=== PATIENT | female | born 1995 | race Caucasian/White ===

== ENCOUNTER 2016-10-16 13:40 | Outpatient (CLI) | payer BC ==
[~2016-10-16] VITALS: Ht 165.1 cm; Wt 125.0 kg
[~2016-10-16 13:40] MED LIST: IBUP-1050 PO; NXM/40 PO; PRENTAB26 PO
[2016-10-16 15:10] LABS: BASO % 0.4 %; BASO ABS # 0.04 K/uL (0-0.2); COMPLETE YES; EOS % 0.2 %; HEMATOCRIT 38.9 % (37-47); IG% 0.2 %; LYMPH % 14.4 %; LYMPH ABS # 1.48 K/uL (1.2-3.4); MEAN CELL VOLUME 84.6 fL (80-100); MEAN CORPUSCULAR HEMOGLOBIN 28.9 pg (25-34); MEAN CORPUSCULAR HGB CONC 34.2 g/dl (32-36); MEAN PLATELET VOLUME 10.1 fL (7.4-10.4); MONO % 5.6 %; NEUT % 79.2 %; PLATELET COUNT 290 K/uL (130-400)
[2016-10-16 15:19] VITALS: Ht 165.1 cm; Wt 125.0 kg
[2016-10-16 15:29] LABS: POTASSIUM 3.9 mmol/L (3.5-5.1)
[2016-10-16 15:37] LABS: URINE APPEARANCE CLEAR (CLEAR); URINE BILIRUBIN NEG (NEG); URINE COLOR YELLOW; URINE EPITHELIAL CELL AUTO 20-30 /lpf (0-5); URINE NITRITE NEG (NEG); URINE PH 6.5 (4.5-7.5); URINE SPECIFIC GRAVITY 1.008 (1.000-1.030); UROBILINOGEN NEG (NEG); ZZUR CULT IF INDIC CLEAN CATCH NO
[2016-10-16 15:38] LABS: MANUAL MICROSCOPIC REQUIRED? NO; REVIEW REQ? NO
--- NOTE | 2016-10-16 15:51 | Discharge Instructions ---
Discharge Instructions Date of Service October 16, 2016. Admission Reason for Admission: 20 Wks Abdominal Pain Discharge Discharge Diagnosis / Problem: abdominal pain at 19 weeks Discharge Goals Goal(s): Continuing OB care Activity Recommendations Activity Limitations: as noted below ACTIVITY RECOMMENDATIONS: See Labor Sheet. SPECIAL CARE INSTRUCTIONS: Call Doctor if: * Regular contractions every 5 minutes or greater than contractions in one hour. * Bleeding * Water breaks or is leaking * Decreased movement * Fever >100.4 degrees F * Pain not relieved by routine measures or pain medication ordered. FOLLOW UP VISIT: Return to Labor and Delivery on for /call for appointment time . Follow-up Visit with: When: . Current Hospital Diet Patient's current hospital diet: Regular OB Diet Discharge Diet Recommended Diet: Regular Diet Pending Studies Studies pending at discharge: no Medical Emergencies . Who to Call and When: Medical Emergencies: If at any time you feel your situation is an emergency, please call 911 immediately. . Non-Emergent Contact Non-Emergency issues call your: Specialist (HOME ASSESSMENT NURSE) . . "Provider Documentation" section prepared by Iain Wagner. . VTE Core Measure Inpt VTE Proph given/why not?: Treatment not indicated
--- NOTE | 2016-10-16 16:00 | Progress Note ---
Progress Note Date of Service October 16, 2016. Progress Note Pt is a 21yo G1@ 19 weeks.seen at [facility] has been unremarkable she presents today with mild generalized lower abdominal pain No nausea or vomiting.no urgency or frequency.no fever.pain is diffuse pt is able to tolerate PO food and meds FHR is documented VE; ;long /Th/closed cbc and UA is reviewed d/c home with inc oral hydration and f/u with OB if no improvement in 24 hrs
== END 2016-10-16 15:58 | disposition home or self-care (01) ==
LOC: C.OPB 13:40 → C.LD 13:40 → C.OPB 15:58
PROVIDERS: ATTEND Obstetrics & Gynecology
DX: O99.89 Other specified diseases and conditions complicating pregnancy, childbirth and the puerperium (principal); R10.30 Lower abdominal pain, unspecified; Z3A.19 19 weeks gestation of pregnancy

== ENCOUNTER 2016-12-13 02:15 | Emergency (ER) | payer BC ==
[~2016-12-13] VITALS: Ht 165.1 cm; Wt 131.1 kg
[2016-12-13 02:19] VITALS: TEMP 37.5; Ht 165.1 cm; Wt 131.1 kg
--- NOTE | 2016-12-13 03:00 | EMERGENCY ROOM VISIT NOTE ---
History First contact with patient: 02:22 Chief Complaint: FLANK PAIN Stated Complaint: LOWER BACK PAIN History of Present Illness The patient is a 21 year old female who presents to the Emergency Room with complaints of right flank pain. The patient states that she is 27 weeks and developed right-sided flank pain yesterday. She states she also has burning with urination. She called her PERSONNEL DIRECTOR and they recommended that she come here. She has a history of kidney stones and states that this pain feels somewhat similar. She rates her discomfort a 7/10. She took Tylenol approximately one hour prior to arrival for her symptoms. She denies any fevers at home. She states that her has been uneventful so far. She still feels the baby kicking and denies any vaginal bleeding or contractions. Review of Systems A complete 10 point review of systems was reviewed with the patient with pertinent positives and negatives as per history of present illness. All else were negative. Past Medical/Surgical History Medical Problems: (1) Body mass index (BMI) of 45.0-49.9 in adult (2) Kidney stone (3) Social History Smoking Status: Never Smoker Marital Status: Housing Status: lives with family Occupation Status: employed Current/Historical Medications Scheduled Cefdinir (Omnicef), 1 CAP PO BID Multivit/Min/Iron/Fol Ac/Pren ( Vitamin), 2 TABS PO DAILY Omeprazole (Prilosec), 20 MG PO DAILY Allergies Coded Allergies: Sulfamethoxazole w/Trimethoprim (Verified Allergy, Intermediate, HIVES, ) Physical Exam Vital Signs Date Time Temp Pulse Resp B/P (MAP) Pulse Ox O2 Delivery O2 Flow Rate FiO2 12/13/16 06:04 97 147/71 96 12/13/16 05:41 100 98 12/13/16 05:36 97 97 12/13/16 05:31 133/83 12/13/16 05:21 90 95 12/13/16 05:06 82 92 12/13/16 05:01 104/73 12/13/16 04:51 94 95 12/13/16 04:36 90 96 12/13/16 04:31 92 120/71 96 12/13/16 04:23 97 97 12/13/16 04:21 97 22 120/82 99 12/13/16 03:45 97 12/13/16 03:38 77 31 98 7/8/17 03:33 124/79 12/13/16 03:31 133/103 12/13/16 03:30 107 96 12/13/16 03:15 101 95 12/13/16 03:12 140/77 12/13/16 02:37 154/109 12/13/16 02:19 37.5 114 20 152/99 98 Room Air Physical Exam VITALS: Vitals are noted on the nurse's note and reviewed by myself. Vital signs stable. GENERAL: This is a 21-year-old female, in no acute distress, nondiaphoretic, well-developed well-nourished. EYES: Pupils equal round and reactive to light and accommodation. MOUTH: Mucous membranes moist. HEART: Regular rate and rhythm without murmurs gallops or rubs. LUNGS: Clear to auscultation bilaterally without wheezes, rales or rhonchi. ABDOMEN: Gravid uterus. No tenderness to palpation. MUSCULOSKELETAL: Right CVA tenderness. NEURO: Patient was alert and oriented to person place and time. Medical Decision & Procedures ER Provider Diagnostic Interpretation: US RENAL: Borderline hydronephrosis bilaterally. Urinary jets were seen bilaterally. Radiologist: Cleveland Cedeño MD Laboratory Results 12/13/16 03:10 Red Blood Count 4.05, Mean Corpuscular Volume 84.7, Mean Corpuscular Hemoglobin 28.1, Mean Corpuscular Hemoglobin Concent 33.2, Mean Platelet Volume 10.0, Neutrophils (%) (Auto) 73.6, Lymphocytes (%) (Auto) 16.8, Monocytes (%) (Auto) 8.5, Eosinophils (%) (Auto) 0.4, Basophils (%) (Auto) 0.1, Neutrophils # (Auto) 10.19, Lymphocytes # (Auto) 2.32, Monocytes # (Auto) 1.17, Eosinophils # (Auto) 0.06, Basophils # (Auto) 0.02 12/13/16 03:10 Test 12/13/16 02:30 12/13/16 03:10 Urine Color DK YELLOW Urine Appearance CLOUDY (CLEAR) Urine pH 6.0 (4.5-7.5) Urine Specific [place] 1.033 (1.000-1.030) Urine Protein 1+ (NEG) Urine Glucose (UA) NEG (NEG) Urine Ketones TRACE (NEG) Urine Occult Blood NEG (NEG) Urine Nitrite NEG (NEG) Urine Bilirubin NEG (NEG) Urine Urobilinogen NEG (NEG) Urine Leukocyte Esterase LARGE (NEG) Urine WBC (Auto) >30 /hpf (0-5) Urine RBC (Auto) 0-4 /hpf (0-4) Urine Hyaline Casts (Auto) 0 /lpf (0-5) Urine Epithelial Cells (Auto) >30 /lpf (0-5) Urine Bacteria (Auto) 2+ (NEG) Urine Crystals See comments (NONE PRSENT) Urine Pathogenic Casts /lpf (0) Urine Mucus PRESENT (NONE PRSENT) Urine Yeast (Auto) BUDDING (NONE PRSENT) White Blood Count 13.84 K/uL (4.8-10.8) Red Blood Count 4.05 M/uL (4.2-5.4) Hemoglobin 11.4 g/dL (12.0-16.0) Hematocrit 34.3 % (37-47) Mean Corpuscular Volume 84.7 fL (80-100) Mean Corpuscular Hemoglobin 28.1 pg (25-34) Mean Corpuscular Hemoglobin Concent 33.2 g/dl (32-36) Platelet Count 280 K/uL (130-400) Mean Platelet Volume 10.0 fL (7.4-10.4) Neutrophils (%) (Auto) 73.6 % Lymphocytes (%) (Auto) 16.8 % Monocytes (%) (Auto) 8.5 % Eosinophils (%) (Auto) 0.4 % Basophils (%) (Auto) 0.1 % Neutrophils # (Auto) 10.19 K/uL (1.4-6.5) Lymphocytes # (Auto) 2.32 K/uL (1.2-3.4) Monocytes # (Auto) 1.17 K/uL (0.11-0.59) Eosinophils # (Auto) 0.06 K/uL (0-0.5) Basophils # (Auto) 0.02 K/uL (0-0.2) RDW Standard Deviation 43.7 fL (36.4-46.3) RDW Coefficient of Variation 14.1 % (11.5-14.5) Immature Granulocyte % (Auto) 0.6 % Immature Granulocyte # (Auto) 0.08 K/uL (0.00-0.02) Anion Gap 7.0 mmol/L (3-11) Est Creatinine Clear Calc Drug Dose 217.6 ml/min Estimated GFR () > 150.0 Estimated GFR (Non- 132.2 BUN/Creatinine Ratio 12.9 (10-20) Calcium Level 8.4 mg/dl (8.5-10.1) Total Bilirubin 0.2 mg/dl (0.2-1) Direct Bilirubin < 0.1 mg/dl (0-0.2) Aspartate Amino Transf (AST/SGOT) 10 U/L (15-37) Alanine Aminotransferase (ALT/SGPT) 14 U/L (12-78) Alkaline Phosphatase 65 U/L (45-117) Total Protein 6.4 gm/dl (6.4-8.2) Albumin 2.7 gm/dl (3.4-5.0) Medications Administered Medications (Trade) Dose Ordered Sig/Jordon Route Start Time Stop Time Status Last Admin Dose Admin Acetaminophen (Tylenol Tab) 1,000 mg NOW STAT PO 12/13/16 05:02 12/13/16 05:03 DC 12/13/16 05:09 1,000 MG Ondansetron HCl (Zofran Inj) 4 mg NOW STAT IV 12/13/16 05:11 12/13/16 05:12 DC 12/13/16 05:30 4 MG Ceftriaxone Sodium (Rocephin Inj) 1 gm NOW STAT IV 12/13/16 05:20 12/13/16 05:21 DC 12/13/16 05:32 1 GM Medical Decision Differential diagnosis includes UTI, pyelonephritis, kidney stone, among others. The patient is a 21-year-old female who presents today complaining of right flank pain and urinary symptoms. She patient is currently 27 weeks . Labs revealed mild leukocytosis consistent with . Labs were otherwise unremarkable. Urinalysis was suggestive of infection, and will be sent for culture. Ultrasound showed borderline hydronephrosis bilaterally, likely secondary to . The patient was given Rocephin and will be treated with Omnicef for a UTI. She was instructed to follow-up closely with PERSONNEL DIRECTOR and return here for worsening symptoms. The patient's case was reviewed with Dr. Hobbs, ED attending physician, who agreed with my assessment and treatment plan. Based on the patient's presentation and work up, I feel the patient is stable for outpatient treatment. The patient was educated to return to the emergency department for any worsening of their current condition or new/concerning symptoms. She will follow up with her PERSONNEL DIRECTOR. Medication reconciliation: I attest that I have personally reviewed the patient 's current medication list. Blood pressure screening: Patient was found to have normal blood pressure on screening and does not require follow-up. Impression Primary Impression: Urinary tract infection Departure Information Dispostion Home / Self-Care Condition GOOD Prescriptions Cefdinir (OMNICEF) 300 Mg Cap 1 CAP PO BID for 7 Days, #14 CAP Prov: Khushboo Snell ., SHERI 12/13/16 Referrals No Doctor, Assigned (PCP) Patient Instructions My [facility] Additional Instructions You were prescribed Omnicef to be taken twice daily. This is an antibiotic. All antibiotics have the potential to cause diarrhea. Stop this medication and contact a medical provider if you were to develop any significant adverse side effects including: wheezing, shortness of breath, passing out, vomiting, or a diffuse rash. Always take antibiotics as directed and COMPLETE the ENTIRE course regardless of the improvement of your symptoms. Continue Tylenol as needed for pain/fever. Rest and drink plenty of fluids. Follow-up with PERSONNEL DIRECTOR this week. Return to the emergency department with any worsening symptoms, vomiting, high fevers not controlled by Tylenol, or any other new/concerning symptoms.
[2016-12-13 03:24] LABS: URINE APPEARANCE CLOUDY (CLEAR); URINE BILIRUBIN NEG (NEG); URINE COLOR DK YELLOW; URINE EPITHELIAL CELL AUTO >30 /lpf (0-5); URINE NITRITE NEG (NEG); URINE SPECIFIC GRAVITY 1.033 (1.000-1.030); UROBILINOGEN NEG (NEG); ZZUR CULT IF INDIC CLEAN CATCH YES
[2016-12-13 03:29] LABS: MANUAL MICROSCOPIC REQUIRED? NO; REVIEW REQ? YES
[2016-12-13 03:31] LABS: BASO % 0.1 %; BASO ABS # 0.02 K/uL (0-0.2); COMPLETE YES; EOS % 0.4 %; HEMATOCRIT 34.3 % (37-47); IG% 0.6 %; LYMPH % 16.8 %; LYMPH ABS # 2.32 K/uL (1.2-3.4); MEAN CELL VOLUME 84.7 fL (80-100); MEAN CORPUSCULAR HEMOGLOBIN 28.1 pg (25-34); MEAN CORPUSCULAR HGB CONC 33.2 g/dl (32-36); MONO % 8.5 %; NEUT % 73.6 %; PLATELET COUNT 280 K/uL (130-400); RED BLOOD COUNT 4.05 M/uL (4.2-5.4); WHITE BLOOD COUNT 13.84 K/uL (4.8-10.8)
[2016-12-13 03:50] LABS: ALT/SGPT 14 U/L (12-78); AST/SGOT 10 U/L (15-37); BLOOD UREA NITROGEN 7 mg/dl (7-18); BUN/CREATININE RATIO 12.9 (10-20); CALCIUM 8.4 mg/dl (8.5-10.1); CARBON DIOXIDE 24 mmol/L (21-32); CHLORIDE 112 mmol/L (98-107); CREATININE 0.55 mg/dl (0.60-1.20); GLUCOSE 90 mg/dl (70-99); POTASSIUM 3.3 mmol/L (3.5-5.1); SODIUM 143 mmol/L (136-145)
[2016-12-13 03:53] LABS: ALKALINE PHOSPHATASE 65 U/L (45-117)
[2016-12-13 03:59] LABS: URINE MUCUS PRESENT (NONE PRSENT)
[2016-12-13] MEDS ORDERED: OMEP20CA9 PO (04:42)
[2016-12-13] MEDS ORDERED: ACETAMINOPHEN 500 MG TAB PO STA (05:02)
[2016-12-13] MEDS ORDERED: ONDANSETRON INJ 2 MG/ML 2 ML VIAL IV STA (05:11)
[2016-12-13] MEDS ORDERED: CEFTRIAXONE SOD INJ 1 GM ADDVIAL IV STA (05:20)
[2016-12-13] MEDS ORDERED: CEFD300C2 PO (05:35)
[2016-12-13 06:04] VITALS: BP 147/71; PULSE 97; O2SAT 96
--- NOTE | 2016-12-13 06:50 | DIAGNOSTIC IMAGING REPORT ---
EXAMINATION: RENAL ULTRASOUND CLINICAL HISTORY: Right flank pain and urinary symptoms COMPARISON STUDY: 11/04/2015 FINDINGS: The right kidney measures 12.5 cm. The left kidney measures 11.7 cm. There is minimal prominence of each renal collecting system, finding which may be secondary to the patient's state. Significant obstruction is not felt to be present as bilateral ureteral jets were visualized There are no renal masses. No bladder abnormalities are visualized. Bilateral ureteral jets were visualized. IMPRESSION : Minimal prominence of each renal collecting system, likely physiologic. Bilateral ureteral jets were visualized Electronically signed by: Adriel Angeles M.D. 12/13/2016 6:48 AM Dictated Date/Time: 12/13/2016 6:47 AM
== END 2016-12-13 06:12 | disposition home or self-care (01) ==
LOC: C.EDB 02:17
DX: O23.92 Unspecified genitourinary tract infection in pregnancy, second trimester (principal); Z3A.27 27 weeks gestation of pregnancy; Z87.442 Personal history of urinary calculi; Z79.899 Other long term (current) drug therapy

== ENCOUNTER 2016-12-23 22:20 | Emergency (ER) | payer BC ==
[~2016-12-23] VITALS: Ht 165.1 cm; Wt 131.1 kg
[~2016-12-23 22:20] MED LIST changes: -IBUP-1050 PO; -NXM/40 PO; +OMEP20CA9 PO
[2016-12-23 22:24] VITALS: Ht 165.1 cm; Wt 131.1 kg
[2016-12-23] MEDS ORDERED: SODIUM CHLORIDE 0.9% 1000ML 1,000 ML IV STA ×2 (22:50)
[2016-12-23] MEDS ORDERED: ONDANSETRON INJ 2 MG/ML 2 ML VIAL IV STA (22:50)
[2016-12-23] MEDS ORDERED: ACETAMINOPHEN 500 MG TAB PO STA (23:36)
[2016-12-23 23:40] LABS: MEAN CORPUSCULAR HEMOGLOBIN 29.5 pg (25-34); MEAN CORPUSCULAR HGB CONC 34.7 g/dl (32-36); MEAN PLATELET VOLUME 9.6 fL (7.4-10.4); PLATELET COUNT 272 K/uL (130-400); WHITE BLOOD COUNT 13.93 K/uL (4.8-10.8)
[2016-12-23 23:44] VITALS: O2SAT 95
[2016-12-23 23:44] LABS: URINE APPEARANCE CLOUDY (CLEAR); URINE BILIRUBIN NEG (NEG); URINE COLOR DK YELLOW; URINE EPITHELIAL CELL AUTO >30 /lpf (0-5); URINE NITRITE NEG (NEG); URINE PH 5.5 (4.5-7.5); URINE SPECIFIC GRAVITY 1.031 (1.000-1.030); UROBILINOGEN NEG (NEG); ZZUR CULT IF INDIC CLEAN CATCH YES
[2016-12-23 23:45] LABS: MANUAL MICROSCOPIC REQUIRED? NO; REVIEW REQ? YES
[2016-12-23 23:57] LABS: ALT/SGPT 16 U/L (12-78); BLOOD UREA NITROGEN 8 mg/dl (7-18); BUN/CREATININE RATIO 13.3 (10-20); CALCIUM 8.5 mg/dl (8.5-10.1); CARBON DIOXIDE 21 mmol/L (21-32); CHLORIDE 109 mmol/L (98-107); CREATININE 0.57 mg/dl (0.60-1.20); GLUCOSE 76 mg/dl (70-99); POTASSIUM 3.3 mmol/L (3.5-5.1); SODIUM 140 mmol/L (136-145)
[2016-12-24] LABS: ALKALINE PHOSPHATASE 70 U/L (45-117); AST/SGOT 11 U/L (15-37)
[2016-12-24 00:04] LABS: BASO % 0.2 %; BASO ABS # 0.03 K/uL (0-0.2); COMPLETE YES; EOS % 0.1 %; IG% 0.6 %; LYMPH % 14.6 %; LYMPH ABS # 2.03 K/uL (1.2-3.4); MONO % 6.5 %
[2016-12-24] MEDS ORDERED: CEPH500C2 PO (01:21)
[2016-12-24] MEDS ORDERED: CEPHALEXIN 500MG HOME PACK 1 EA BTL PO ONE (01:30)
[2016-12-24 01:40] VITALS: BP 131/88; PULSE 115; TEMP 36.8; O2SAT 95
--- NOTE | 2016-12-24 02:37 | EMERGENCY ROOM VISIT NOTE ---
History First contact with patient: 22:48 Chief Complaint: FLANK PAIN Stated Complaint: FLANK PAIN History of Present Illness The patient is a 21 year old female who presents to the Emergency Room with complaints of urinary symptoms of left flank pain for the past day. Patient is 28 weeks . Patient states she feels as if the baby is not moving as much as normal. She follows at [facility]. This is her second . She has no living children. Patient describes the pain as aching, ranging in severity 5 out of 10. Nothing makes it better or worse. She's had kidney stones in the past. Patient denies chest pain, dyspnea, fever, chills, vomiting , diarrhea, vaginal itching or discharge, urinary symptoms, headache, cold symptoms. She is tolerate by mouth fluids and food. Review of Systems See HPI for pertinent positives & negatives. A total of 10 systems reviewed and were otherwise negative. Past Medical/Surgical History Medical Problems: (1) Body mass index (BMI) of 45.0-49.9 in adult (2) Kidney stone (3) Social History Smoking Status: Never Smoker Drug Use: none Marital Status: Housing Status: lives with family Occupation Status: employed Current/Historical Medications Scheduled Cephalexin Monohydrate (Keflex), 500 MG PO QID Multivit/Min/Iron/Fol Ac/Pren ( Vitamin), 2 TABS PO DAILY Omeprazole (Prilosec), 20 MG PO DAILY Allergies Coded Allergies: Sulfamethoxazole w/Trimethoprim (Verified Allergy, Intermediate, HIVES, ) Physical Exam Vital Signs Date Time Temp Pulse Resp B/P (MAP) Pulse Ox O2 Delivery O2 Flow Rate FiO2 12/24/16 01:40 36.8 115 18 131/88 95 12/24/16 01:28 115 18 131/88 95 Room Air 12/24/16 00:37 115 18 128/85 95 Room Air 12/23/16 23:44 95 Room Air 12/23/16 22:24 36.8 125 18 130/85 95 Room Air Pain Rating (0-10): 0 Physical Exam VITALS: Vitals are noted on the nurse's note and reviewed by myself. Vital signs stable. GENERAL: Pleasant female, in no acute distress, nondiaphoretic, well-developed well-nourished. SKIN: The skin was without rashes, erythema, edema, or bruising. There is no tenting of the skin. Capillary reflex less than 2 seconds. HEAD: Normocephalic atraumatic. EARS: External auditory canals clear, tympanic membranes pearly espinal without erythema or effusion bilaterally. EYES: Pupils equal round and reactive to light and accommodation. Conjunctivae without injection, sclerae without icterus. Extraocular movements intact. NOSE: Patent, turbinates without inflammation or discharge. MOUTH: Mucous membranes moist. Pharynx without erythema or exudate. Uvula midline. Airway patent. Tongue does not deviate. NECK: Supple without nuchal rigidity. No lymphadenopathy. No thyromegaly. Cervical spine is nontender. No JVD. HEART: Regular rate and rhythm without murmurs gallops or rubs. LUNGS: Clear to auscultation bilaterally without wheezes, rales or rhonchi. No dullness to percussion. No retractions or accessory muscle use. ABDOMEN: Positive bowel sounds x 4. Normal tympanic percussion. Soft, 28 weeks , no CVA tenderness, nontender, without masses or organomegaly. Rivas sign negative. No guarding or rebound tenderness. MUSCULOSKELETAL: No muscle atrophy, erythema, or edema noted. NEURO: Patient was alert and oriented to person place and time. Normal sensation to light and sharp touch. No focal neurological deficits. Medical Decision & Procedures Laboratory Results 12/23/16 23:23 Red Blood Count 4.00, Mean Corpuscular Volume 85.0, Mean Corpuscular Hemoglobin 29.5, Mean Corpuscular Hemoglobin Concent 34.7, Mean Platelet Volume 9.6, Neutrophils (%) (Auto) 78.0, Lymphocytes (%) (Auto) 14.6, Monocytes (%) (Auto) 6.5, Eosinophils (%) (Auto) 0.1, Basophils (%) (Auto) 0.2, Neutrophils # (Auto) 10.85, Lymphocytes # (Auto) 2.03, Monocytes # (Auto) 0.91, Eosinophils # (Auto) 0.02, Basophils # (Auto) 0.03 12/23/16 23:23 Test 12/23/16 23:23 12/23/16 23:25 White Blood Count 13.93 K/uL (4.8-10.8) Red Blood Count 4.00 M/uL (4.2-5.4) Hemoglobin 11.8 g/dL (12.0-16.0) Hematocrit 34.0 % (37-47) Mean Corpuscular Volume 85.0 fL (80-100) Mean Corpuscular Hemoglobin 29.5 pg (25-34) Mean Corpuscular Hemoglobin Concent 34.7 g/dl (32-36) Platelet Count 272 K/uL (130-400) Mean Platelet Volume 9.6 fL (7.4-10.4) Neutrophils (%) (Auto) 78.0 % Lymphocytes (%) (Auto) 14.6 % Monocytes (%) (Auto) 6.5 % Eosinophils (%) (Auto) 0.1 % Basophils (%) (Auto) 0.2 % Neutrophils # (Auto) 10.85 K/uL (1.4-6.5) Lymphocytes # (Auto) 2.03 K/uL (1.2-3.4) Monocytes # (Auto) 0.91 K/uL (0.11-0.59) Eosinophils # (Auto) 0.02 K/uL (0-0.5) Basophils # (Auto) 0.03 K/uL (0-0.2) RDW Standard Deviation 43.5 fL (36.4-46.3) RDW Coefficient of Variation 14.0 % (11.5-14.5) Immature Granulocyte % (Auto) 0.6 % Immature Granulocyte # (Auto) 0.09 K/uL (0.00-0.02) Red Blood Cell Morphology Unremarkable Anion Gap 10.0 mmol/L (3-11) Est Creatinine Clear Calc Drug Dose 210.0 ml/min Estimated GFR () > 150.0 Estimated GFR (Non- 130.7 BUN/Creatinine Ratio 13.3 (10-20) Calcium Level 8.5 mg/dl (8.5-10.1) Total Bilirubin 0.3 mg/dl (0.2-1) Direct Bilirubin 0.1 mg/dl (0-0.2) Aspartate Amino Transf (AST/SGOT) 11 U/L (15-37) Alanine Aminotransferase (ALT/SGPT) 16 U/L (12-78) Alkaline Phosphatase 70 U/L (45-117) Total Protein 6.9 gm/dl (6.4-8.2) Albumin 2.9 gm/dl (3.4-5.0) Lipase 114 U/L (73-393) Urine Color DK YELLOW Urine Appearance CLOUDY (CLEAR) Urine pH 5.5 (4.5-7.5) Urine Specific [place] 1.031 (1.000-1.030) Urine Protein 1+ (NEG) Urine Glucose (UA) NEG (NEG) Urine Ketones 4+ (NEG) Urine Occult Blood NEG (NEG) Urine Nitrite NEG (NEG) Urine Bilirubin NEG (NEG) Urine Urobilinogen NEG (NEG) Urine Leukocyte Esterase LARGE (NEG) Urine WBC (Auto) >30 /hpf (0-5) Urine RBC (Auto) 0-4 /hpf (0-4) Urine Hyaline Casts (Auto) 0 /lpf (0-5) Urine Epithelial Cells (Auto) >30 /lpf (0-5) Urine Bacteria (Auto) 1+ (NEG) Urine Crystals CALCIUM OXALATE (NONE Urine Yeast (Auto) BUD W/ HYPHAE (NONE PRSENT) Medications Administered Medications (Trade) Dose Ordered Sig/Jordon Route Start Time Stop Time Status Last Admin Dose Admin Sodium Chloride 1,000 ml @ 999 mls/hr Q1H1M STAT IV 12/23/16 22:50 12/23/16 23:50 DC 12/23/16 23:41 999 MLS/HR Sodium Chloride 1,000 ml @ 125 mls/hr Q8H STAT IV 12/23/16 22:50 12/24/16 02:12 DC 12/23/16 23:41 125 MLS/HR Ondansetron HCl (Zofran Inj) 4 mg NOW STAT IV 12/23/16 22:50 12/23/16 22:53 DC 12/23/16 23:41 4 MG Acetaminophen (Tylenol Tab) 1,000 mg NOW STAT PO 12/23/16 23:36 12/23/16 23:37 DC 12/23/16 23:43 1,000 MG Cephalexin Monohydrate (Keflex 500MG Home Pack) 1 homepack NOW ONCE PO 12/24/16 01:30 12/24/16 01:31 DC 12/24/16 01:28 1 HOMEPACK ED Course Prior records/ancillary studies reviewed. Triage Nursing notes reviewed. Additional history obtained from family The patient's history was concerning for urinary symptoms with flank pain who is currently 28 weeks Differential diagnosis: Etiologies such as complication, appendicitis, diverticulitis, PUD, biliary pathology, UTI, pancreatitis, obstruction, mesenteric ischemia, aortic pathology, infections, inflammatory bowel disease, renal colic, as well as others were entertained. Physical examination findings: As above. ER treatment provided: Tylenol, IV fluids, Keflex On reassessment the patient felt better. Diagnostics interpreted by me: The labs revealed leukocytosis, urine concerns for possible infection versus contamination and sent for culture Imaging studies: Ultrasound negative for hydronephrosis Consultation: A consultation was placed with the MERRY GO ROUND ATTENDANT the case was discussed and diagnostics were reviewed. Dr. Blake recommends Keflex and discharge with follow-up outpatient. Exam and history seem consistent with possible UTI. Patient was neurovascularly and neurologically intact. No signs of sepsis. She is well- appearing. heart tones are 156. No hydronephrosis on ultrasound. She was advised take antibiotics as directed and to follow the urine culture. She is advised to follow-up with OB in a few days or here in the ER sooner for severe pain, fevers, vomiting, worsening signs or symptoms or as needed. By the evaluation outlined above emergent etiologies such as appendicitis, diverticulitis, PUD, biliary pathology, pancreatitis, obstruction, mesenteric ischemia, aortic pathology, inflammatory bowel disease, renal colic, as well as others were deemed relatively unlikely. The pt informed about the findings as listed above. All questions were answered and pleased with the treatment. Return instructions were outlined and the patient was discharged in stable condition. Outpatient prescription management: Keflex Referral: The patient was referred back to their MERRY GO ROUND ATTENDANT for follow-up in 2 to 3 days for a recheck of the current condition. Case reviewed with my attending Medical Decision As above Impression Primary Impression: UTI (urinary tract infection) Departure Information Dispostion Home / Self-Care Condition GOOD Prescriptions Cephalexin Monohydrate (KEFLEX) 500 Mg Cap 500 MG PO QID for 6 Days, #24 CAP Prov: Tania Boyd PA-C 12/24/16 Forms HOME CARE DOCUMENTATION FORM, Work Instructions, Return To Work: 2 days IMPORTANT VISIT INFORMATION Patient Instructions UTI, My [facility] Additional Instructions Keflex 500 mg: Take one pill 4 times daily for 7 days for your urine infection. All antibiotics can cause diarrhea. If this occurs and you feel worse or it does not resolve in 1-2 days follow up with your doctor or return to the Emergency Department as this could be signs of serious underlying problems. Any medication can cause an allergic reaction, stop the pills immediately and return to the ER for rash, hives, breathing difficulties, or swelling. Zofran 4 mg: Take one every six hours as needed for nausea. Avoid alcohol, operating machinery or dangerous equipment, working on ladders or roofs, DRIVING , or situations where being under the influence may be dangerous. Acetaminophen(Tylenol) may be used for fever or pain. Use 1000mg every six hours as needed. Avoid using more than 3000mg in a 24 hour period. Rest and drink plenty of fluids as tolerated. Slow sips of water or sports drinks are recommended instead of large amounts all at once. Continue current medications. Once your stomach is settled start with a clear liquid diet (jello, soup broth, etc.) and then advance as tolerated. You should avoid full, heavy meals for about 24 hrs from the time your symptoms resolved. Return to the ER immediately for worsening or persistent abdominal/back pain, vomiting, fevers, worsening of your condition, or as needed. Follow up with your MERRY GO ROUND ATTENDANT within 2-3 days for a recheck of the current condition. Work Instructions Return To Work: 2 days Problem Qualifiers Primary Impression: UTI (urinary tract infection) Urinary tract infection type: acute cystitis Hematuria presence: without hematuria Qualified Codes: N30.00 - Acute cystitis without hematuria
--- NOTE | 2016-12-24 06:54 | DIAGNOSTIC IMAGING REPORT ---
RENAL ULTRASOUND CLINICAL HISTORY: Right flank pain. Possible stone. COMPARISON STUDY: CT of the abdomen and pelvis April 03, 2016 and renal ultrasound December 13, 2016. TECHNIQUE: Sonography of the kidneys and the urinary bladder was performed. FINDINGS: The right kidney measures 11.3 cm in maximal dimension while the left measures 11.6 cm. There is no hydronephrosis. No calculi or masses are identified by sonography. Borderline splenomegaly is noted. Renal echogenicity, size and cortical thickness are normal. Incidental note was made of an intrauterine gestation with normal heart rate of 133 bpm. Please note that a dedicated ultrasound was not performed. IMPRESSION: 1. No hydronephrosis. 2. Intrauterine gestation with normal heart rate of 133 bpm. Electronically signed by: Arie Serrano M.D. 12/24/2016 6:52 AM Dictated Date/Time: 12/24/2016 6:51 AM
== END 2016-12-24 01:41 | disposition home or self-care (01) ==
LOC: C.EDB 22:21 → C.EDC 12-24 01:41
DX: O23.43 Unspecified infection of urinary tract in pregnancy, third trimester (principal); Z3A.28 28 weeks gestation of pregnancy; Z87.442 Personal history of urinary calculi

== ENCOUNTER 2016-12-29 15:29 | Outpatient (CLI) | payer BC ==
[~2016-12-29] VITALS: Ht 165.1 cm; Wt 130.5 kg
[~2016-12-29 15:29] MED LIST changes: +CEPH500C2 PO
[2016-12-29 16:36] VITALS: Ht 165.1 cm; Wt 130.5 kg
== END 2016-12-29 16:22 | disposition home or self-care (01) ==
LOC: C.LD 15:29 → C.OPB 15:29
PROVIDERS: ATTEND Obstetrics & Gynecology
DX: O23.593 Infection of other part of genital tract in pregnancy, third trimester (principal); Z3A.29 29 weeks gestation of pregnancy

== ENCOUNTER → 2017-01-06 | Outpatient (CLI) | payer BC ==
[~2017-01-06] MED LIST changes: -CEPH500C2 PO; +MTR600X PO; +OXYC-57 PO
[2017-01-06 12:20] LABS: HEMATOCRIT 35.2 % (37-47)
[2017-01-06 12:46] LABS: GTGD 50 Grams
== END | disposition home or self-care (01) ==
LOC: C.LAB1850 10:41
PROVIDERS: ATTEND Obstetrics & Gynecology
DX: Z34.83 Encounter for supervision of other normal pregnancy, third trimester (principal)

== ENCOUNTER → 2017-01-06 | Outpatient (CLI) | payer BC ==
[2017-01-06 15:32] LABS: URINE APPEARANCE CLOUDY (CLEAR); URINE BILIRUBIN NEG (NEG); URINE COLOR YELLOW; URINE EPITHELIAL CELL AUTO >30 /lpf (0-5); URINE NITRITE NEG (NEG); URINE SPECIFIC GRAVITY 1.024 (1.000-1.030); UROBILINOGEN NEG (NEG)
[2017-01-06 15:38] LABS: MANUAL MICROSCOPIC REQUIRED? NO; REVIEW REQ? YES
== END | disposition home or self-care (01) ==
LOC: C.LABSPEC 14:15
PROVIDERS: ATTEND Obstetrics & Gynecology
DX: Z34.82 Encounter for supervision of other normal pregnancy, second trimester (principal)

== ENCOUNTER → 2017-02-04 | Outpatient (CLI) | payer BC ==
[2017-02-04 16:50] LABS: HEMATOCRIT 38.6 % (37-47); MEAN CELL VOLUME 86.2 fL (80-100); MEAN CORPUSCULAR HEMOGLOBIN 28.1 pg (25-34); MEAN PLATELET VOLUME 10.5 fL (7.4-10.4); PLATELET COUNT 306 K/uL (130-400); RED BLOOD COUNT 4.48 M/uL (4.2-5.4); WHITE BLOOD COUNT 10.59 K/uL (4.8-10.8)
[2017-02-04 17:11] LABS: MEAN CORPUSCULAR HGB CONC 32.6 g/dl (32-36)
[2017-02-04 17:16] LABS: ALB/GLOB RATIO 0.6 (0.9-2); ALKALINE PHOSPHATASE 110 U/L (45-117); ALT/SGPT 13 U/L (12-78); AST/SGOT 12 U/L (15-37); BLOOD UREA NITROGEN 6 mg/dl (7-18); BUN/CREATININE RATIO 11.5 (10-20); CALCIUM 8.8 mg/dl (8.5-10.1); CARBON DIOXIDE 22 mmol/L (21-32); CHLORIDE 111 mmol/L (98-107); CREATININE 0.54 mg/dl (0.60-1.20); GLUCOSE 81 mg/dl (70-99); POTASSIUM 3.8 mmol/L (3.5-5.1); SODIUM 142 mmol/L (136-145)
== END | disposition home or self-care (01) ==
LOC: C.LAB1850 16:31
PROVIDERS: ATTEND Obstetrics & Gynecology
DX: O13.3 Gestational [pregnancy-induced] hypertension without significant proteinuria, third trimester (principal)

== ENCOUNTER 2017-02-06 00:54 | Outpatient (CLI) | payer BC ==
[~2017-02-06] VITALS: Ht 165.1 cm; Wt 135.0 kg
[~2017-02-06 00:54] MED LIST changes: -MTR600X PO; -OXYC-57 PO
[2017-02-06 01:31] VITALS: Ht 165.1 cm; Wt 135.0 kg
[2017-02-06 02:00] LABS: BASO % 0.1 %; BASO ABS # 0.02 K/uL (0-0.2); COMPLETE YES; EOS % 0.6 %; HEMATOCRIT 34.5 % (37-47); IG% 0.3 %; LYMPH % 18.5 %; LYMPH ABS # 2.48 K/uL (1.2-3.4); MEAN CELL VOLUME 85.6 fL (80-100); MEAN CORPUSCULAR HEMOGLOBIN 28.8 pg (25-34); MEAN CORPUSCULAR HGB CONC 33.6 g/dl (32-36); MEAN PLATELET VOLUME 10.5 fL (7.4-10.4); MONO % 9.9 %; NEUT % 70.6 %; PLATELET COUNT 287 K/uL (130-400); RED BLOOD COUNT 4.03 M/uL (4.2-5.4); WHITE BLOOD COUNT 13.39 K/uL (4.8-10.8)
[2017-02-06 02:19] LABS: ALT/SGPT 14 U/L (12-78); AST/SGOT 9 U/L (15-37); BLOOD UREA NITROGEN 7 mg/dl (7-18); BUN/CREATININE RATIO 11.6 (10-20); CALCIUM 9.3 mg/dl (8.5-10.1); CARBON DIOXIDE 26 mmol/L (21-32); CHLORIDE 109 mmol/L (98-107); CREATININE 0.58 mg/dl (0.60-1.20); GLUCOSE 87 mg/dl (70-99); POTASSIUM 3.5 mmol/L (3.5-5.1); SODIUM 139 mmol/L (136-145)
[2017-02-06 02:21] LABS: ALB/GLOB RATIO 0.7 (0.9-2); ALKALINE PHOSPHATASE 100 U/L (45-117)
== END 2017-02-06 02:43 | disposition home or self-care (01) ==
LOC: C.LD 00:54 → C.OPB 00:54
PROVIDERS: ATTEND Obstetrics & Gynecology
DX: O99.89 Other specified diseases and conditions complicating pregnancy, childbirth and the puerperium (principal); R03.0 Elevated blood-pressure reading, without diagnosis of hypertension; O99.213 Obesity complicating pregnancy, third trimester; E66.9 Obesity, unspecified; Z3A.35 35 weeks gestation of pregnancy

== ENCOUNTER → 2017-02-06 | Outpatient (CLI) | payer BC ==
[2017-02-06 12:06] LABS: PATIENT HEIGHT 165.1 cm
[2017-02-06 13:44] LABS: THYROID STIMULATING HORMONE 1.46 uIu/ml (0.300-4.500)
[2017-02-06 15:10] LABS: CREATININE 0.59 mg/dl (0.6-1.2)
[2017-02-06 15:11] LABS: URINE TOTAL PROTEIN 18.5 mg/dl (0-11.9)
== END | disposition home or self-care (01) ==
LOC: C.LAB1850 11:55
PROVIDERS: ATTEND Obstetrics & Gynecology
DX: O13.3 Gestational [pregnancy-induced] hypertension without significant proteinuria, third trimester (principal)

== ENCOUNTER → 2017-02-10 | Outpatient (CLI) | payer BC ==
[~2017-02-10] MED LIST changes: +MTR600X PO; +OXYC-57 PO
[2017-02-10 17:17] LABS: BASO % 0.2 %; BASO ABS # 0.02 K/uL (0-0.2); COMPLETE YES; EOS % 0.3 %; HEMATOCRIT 35.9 % (37-47); IG% 0.5 %; LYMPH % 15.7 %; LYMPH ABS # 1.77 K/uL (1.2-3.4); MEAN CELL VOLUME 85.5 fL (80-100); MEAN PLATELET VOLUME 10.8 fL (7.4-10.4); MONO % 9.1 %; NEUT % 74.2 %; PLATELET COUNT 281 K/uL (130-400); WHITE BLOOD COUNT 11.26 K/uL (4.8-10.8)
[2017-02-10 17:38] LABS: ALT/SGPT 11 U/L (12-78); AST/SGOT 11 U/L (15-37)
== END | disposition home or self-care (01) ==
LOC: C.LAB1850 15:55
PROVIDERS: ATTEND Obstetrics & Gynecology
DX: O13.3 Gestational [pregnancy-induced] hypertension without significant proteinuria, third trimester (principal)

== ENCOUNTER → 2017-02-13 | Outpatient (CLI) | payer BC | END | disposition home or self-care (01) | LOC: C.LABSPEC 16:16 | PROVIDERS: ATTEND Obstetrics & Gynecology | DX: Z34.83 Encounter for supervision of other normal pregnancy, third trimester (principal); Z3A.00 Weeks of gestation of pregnancy not specified ==

== ENCOUNTER 2017-02-18 18:18 | Outpatient (CLI) | payer BC ==
[~2017-02-18 18:18] MED LIST changes: -MTR600X PO; -OXYC-57 PO
== END 2017-02-18 19:10 | disposition home or self-care (01) ==
LOC: C.OPB 18:18 → C.LD 18:18 → C.OPB 19:10
PROVIDERS: ATTEND Obstetrics & Gynecology
DX: O34.40 Maternal care for other abnormalities of cervix, unspecified trimester (principal); Z3A.00 Weeks of gestation of pregnancy not specified

== ENCOUNTER 2017-02-19 10:01 | Inpatient (IN) | payer BC ==
[~2017-02-19] VITALS: Ht 165.1 cm; Wt 136.5 kg
[2017-02-19] MEDS ORDERED: LACTATED RINGER'S 1000ML 1,000 ML IV PRN (13:16)
[2017-02-19 13:41] VITALS: Ht 165.1 cm; Wt 136.5 kg
[2017-02-19 13:48] LABS: HEMATOCRIT 35.4 % (37-47); MEAN CELL VOLUME 84.1 fL (80-100); MEAN CORPUSCULAR HEMOGLOBIN 28.5 pg (25-34); MEAN CORPUSCULAR HGB CONC 33.9 g/dl (32-36); MEAN PLATELET VOLUME 10.8 fL (7.4-10.4); PLATELET COUNT 255 K/uL (130-400); RED BLOOD COUNT 4.21 M/uL (4.2-5.4); WHITE BLOOD COUNT 11.54 K/uL (4.8-10.8)
[2017-02-19 13:56] LABS: INR 0.9 (0.9-1.1)
[2017-02-19 14:13] LABS: ALKALINE PHOSPHATASE 107 U/L (45-117); ALT/SGPT 11 U/L (12-78); AST/SGOT 11 U/L (15-37); CREATININE 0.54 mg/dl (0.60-1.20); URIC ACID 3.3 mg/dl (2.6-7.2)
[2017-02-19] MEDS: MISOPROSTOL 25 MCG TAB PV PRN ×3 (14:14→23:50)
[2017-02-19] MEDS ORDERED: PENICILLIN G POTASSIUM IV 6 MU in DEXTROSE 5% 250ML 250 ML IV ONE (16:45)
[2017-02-19] MEDS: LACTATED RINGER'S 1000ML 1,000 ML IV SCH (17:44)
[2017-02-19] MEDS ORDERED: ACETAMINOPHEN 325 MG TAB ONE (23:11)
[2017-02-19] MEDS ORDERED: NURSING VERBAL MED ORDER ONE (23:15)
[2017-02-19] MEDS ORDERED: BUTORPHANOL TARTRATE 1 MG/ML VIAL IV PRN (23:45)
[2017-02-20] MEDS ORDERED: ACETAMINOPHEN 325 MG TAB PO PRN (00:15)
[2017-02-20] MEDS: PENICILLIN G POTASSIUM IV 3 MU in DEXTROSE 5% 100ML 100 ML IV PRN ×3 (01:29→10:02)
[2017-02-20] MEDS: LACTATED RINGER'S 1000ML 1,000 ML IV SCH (03:36)
[2017-02-20] MEDS ORDERED: CEFAZOLIN IV 3,000 MG in DEXTROSE 5% 50ML 50 ML IV SCH (06:00)
[2017-02-20] MEDS ORDERED: DINOPROSTONE 10 MG INSERT PV ONE (07:30)
[2017-02-20] MEDS: ONDANSETRON INJ 2 MG/ML 2 ML VIAL IV PRN ×2 (11:22→19:35)
[2017-02-20] MEDS ORDERED: LIDOCAINE HCL 2% JELLY 30 ML TUBE EXT ONE (11:37)
[2017-02-20] MEDS ORDERED: PROPOFOL IV EMULSION 10 MG/ML 20 ML VIAL IV ONE (11:50)
[2017-02-20] MEDS ORDERED: FENTANYL CITRATE INJ 50 MCG/1 ML 2 ML VIAL ONE ×2 (11:53→12:27)
[2017-02-20] MEDS ORDERED: SUCCINYLCHOLINE CHLORIDE 20 MG/ML 10 ML VIAL IV ONE (11:53)
[2017-02-20] MEDS ORDERED: LACTATED RINGER'S 1000ML 1,000 ML IV SCH ×2 (11:57→21:30)
[2017-02-20] MEDS ORDERED: CEFAZOLIN SOD 1 GM VIAL ONE ×2 (11:59→12:35)
[2017-02-20] MEDS ORDERED: OXYTOCIN INJ 10 UNITS/ML VIAL ONE ×2 (12:24→12:28)
[2017-02-20] MEDS ORDERED: ONDANSETRON INJ 2 MG/ML 2 ML VIAL ONE (12:40)
[2017-02-20] MEDS ORDERED: DEXAMETHASONE SOD INJ 4 MG/ML VIAL ONE (12:41)
[2017-02-20] MEDS ORDERED: SODIUM CHLORIDE 0.9% 1000ML 1,000 ML IV SCH (12:57)
[2017-02-20] MEDS ORDERED: MIDAZOLAM HCL 1 MG/ML 2ML VIAL ONE (12:59)
[2017-02-20] MEDS ORDERED: NALOXONE HCL 0.4 MG/1 ML VIAL/CARP IV PRN ×2 (13:00→13:30)
[2017-02-20] MEDS ORDERED: HYDROCORTISONE ACETATE 25 MG SUPP PR PRN (13:00)
[2017-02-20] MEDS ORDERED: SUPERCREAM 0.870 % 15GM JAR EXT PRN (13:00)
[2017-02-20] MEDS ORDERED: PROMETHAZINE HCL INJ 25 MG in SODIUM CHLORIDE 0.9% 50ML 50 ML IV PRN (13:00)
[2017-02-20] MEDS ORDERED: ZOLPIDEM TARTRATE 5 MG TAB PO PRN (13:00)
[2017-02-20] MEDS ORDERED: ONDANSETRON INJ 2 MG/ML 2 ML VIAL IV PRN ×2 (13:00→13:30)
[2017-02-20] MEDS ORDERED: LANOLIN OINT EXT PRN ×2 (13:00)
[2017-02-20] MEDS ORDERED: BENZOCAINE 20% AER SPR 82.5 GM CAN EXT PRN (13:00)
[2017-02-20] MEDS ORDERED: DiphenhydrAMINE HCL 50 MG/ML VIAL IV PRN (13:00)
[2017-02-20] MEDS ORDERED: HYDROmorphone INJ 1 MG/ML SYR ONE (13:27)
[2017-02-20] MEDS ORDERED: ATROPINE SULFATE 0.1 MG/ML 5ML SYR IV PRN (13:30)
[2017-02-20] MEDS ORDERED: FLUMAZENIL 0.1 MG/1 ML 10 ML VIAL IV PRN (13:30)
[2017-02-20] MEDS ORDERED: LABETALOL HCL IV 5 MG/ML 20ML IV PRN (13:30)
[2017-02-20] MEDS ORDERED: EpHEDrine SULFATE INJ 50 MG/ML AMP IV PRN (13:30)
[2017-02-20] MEDS ORDERED: PROMETHAZINE HCL INJ 12.5 MG in SODIUM CHLORIDE 0.9% 50ML 50 ML IV PRN (13:30)
[2017-02-20] MEDS ORDERED: HYDROmorphone INJ 1 MG/ML SYR IV PRN (13:30)
[2017-02-20] MEDS ORDERED: OXYTOCIN INJ 30 UNITS in LACTATED RINGER'S 1000ML 1,000 ML IV SCH (13:30)
[2017-02-20] MEDS ORDERED: KETOROLAC TROMETHAMINE 30 MG/ML VIAL IV. PRN (13:30)
--- NOTE | 2017-02-20 13:34 | [facility] Post Operative Brief Note ---
Immediate Operative Summary Operative Date Feb 20, 2017. Pre-Operative Diagnosis Persistant non-reassuring heart rate pattern, term intrauterine Post-Operative Diagnosis Same as pre-op Procedure(s) Performed Low uterine transverse incision, primary caesarean, delievery of live male child at [address] Dipesh Frye Email Engineer Surgeon(s) Dr. Harriet Crockett Estimated Blood Loss 700ml Findings DELIVERED A VIABLE MALE , APGARS 9, 9 AND WEIGHT 6#12. NORMAL UTERUS, FALLOPIAN TUBES BILATERALLY. Fluids (cc crystalloids) 1400 Specimens 1. Cord Blood 2. Placenta - hold Drains TOMLINSON TO STRAIGHT DRAINAGE, CLEAR URINE AT END OF CASE. Anesthesia GET Complication(s) None Disposition Recovery Room / PACU
--- NOTE | 2017-02-20 14:25 | OPERATIVE REPORT ---
DATE OF OPERATION: 02/20/2017 SURGEON: Dr. Tere Regan. EDITOR SOUND: Dr. Sandy Crockett, PGY1. PREOPERATIVE DIAGNOSES: Intrauterine at 37 weeks, gestational hypertension, nonreassuring heart rate pattern, uninducible cervix. POSTOPERATIVE DIAGNOSES: Same plus delivery of a viable male , 6 pounds 12.5 ounces with tight nuchal cord. PROCEDURE: Primary low transverse cervical section. ANESTHESIA: General endotracheal. BLOOD LOSS: 700 mL. HISTORY: The patient is a 21-year-old 2, para 0-0-1-0 white female, EDC of 03/12/2017, who had presented for induction because of gestational hypertension. She received Cytotec 4 doses, during which over the evening there had been moderate variables noted. She was rested overnight and a cervical Arteaga was attempted but was unsuccessful. She received Cervidil vaginally. heart tones were category 1 and then developed several episodes of severe variables. The last one lasting 5 minutes, with a lily of 60 beats per minute. Because of the persistence of the variable decelerations, it was felt prudent to proceed with a low transverse cervical section, especially since cervix is still closed and 70% effaced. heart tones were resuscitated with maternal oxygen and position change. The patient and her understand the need for section and are willing to proceed. All their questions were answered. GROSS FINDINGS: Uterus is gravid and consistent with a term in size. Bilateral ovaries and fallopian tubes are grossly normal. No evidence of any recent scar tissue or adhesions. PROCEDURE IN DETAIL: After she was prepped and draped in the usual sterile fashion and a Arteaga catheter was placed as well, the patient was placed under general anesthetic. A low transverse skin incision was made with the scalpel and carried to the fascia with the same scalpel. The fascial incision was then extended with Barrett scissors and the edges grasped with Patricia clamps. The underlying rectus muscles were bluntly divided in the midline and the peritoneum elevated and entered sharply. The bladder was taken down off the anterior surface of the uterus and placed behind the bladder blade. Low uterine segment was entered with a scalpel and extended transversely. The was delivered from the vertex presentation. Upon entering the uterus and ruptured membranes, there was clear fluid and the umbilical cord was lying adjacent to the baby's ear, across the side of the head. After delivering the head from the vertex presentation with moderate fundal pressure, there was also noted to be a tight nuchal cord which was reduced prior to delivering the rest of the infant. The cord was clamped and cut and the infant was handed off to Dr. Ortiz who was in attendance as conditioner tender. The placenta was removed manually and the uterus exteriorized and covered with a clean lap sponge. The uterine cavity was explored and found to be free of any retained tissue or membranes. The uterus was then closed in 2 layers in a running locking imbricating fashion. Hemostasis was noted to be excellent. The posterior cul-de-sac was irrigated with normal saline, as was the anterior cul-de-sac. The incision was examined once more and continued to have excellent hemostasis. The uterus was placed back inside the abdominal cavity. The gutters were explored and found to be free of any clot or fluid. Some clot was removed from the anterior cul-de-sac at this time. The incision was examined once more and continued to be hemostatic. The rectus muscles were then brought together on the midline with individual stitches of 0 Monocryl. The fascia was closed in a running fashion with 0 Vicryl. The adipose layer was irrigated with normal saline. The Leonarda fascia was then brought together with a running stitch of 2-0 plain catgut. Skin edges were reapproximated using a subcuticular stitch of 4-0 Vicryl. Urine was clear at the end of the case. The patient tolerated the procedure well and was stable upon arrival back in labor and delivery. I attest to the content of the Intraoperative Record and any orders documented therein. Any exception s are noted below.
--- NOTE | 2017-02-20 14:50 | Anesthesiology Progress Note ---
Anesthesia Post Op Note Date & Time Feb 20, 2017 at 14:50 Vital Signs Pain Intensity: 10.0 Notes Mental Status: alert / awake / arousable, participated in evaluation Pt Amnestic to Procedure: Yes Nausea / Vomiting: adequately controlled Pain: adequately controlled Airway Patency, RR, SpO2: stable & adequate BP & HR: stable & adequate Hydration State: stable & adequate Anesthetic Complications: no major complications apparent
[2017-02-20] MEDS: HYDROmorphone HCL 0.5MG/ML 50 ML CASSETTE IV PRN ×3 (15:20→19:19)
[2017-02-20] MEDS ORDERED: LOCK-OUT PCA TITRATION SCH (16:00)
[2017-02-20 16:50] VITALS: BP 123/56; PULSE 81; TEMP 36.6
[2017-02-20 19:35] VITALS: BP 128/78; PULSE 73; TEMP 36.8; O2SAT 97
[2017-02-20] MEDS: SIMETHICONE 80 MG CHEW PO SCH (19:35)
[2017-02-20] MEDS: DOCUSATE SODIUM 100 MG CAP PO SCH (19:35)
[2017-02-20 23:10] VITALS: BP 125/84; PULSE 94; TEMP 36.8; O2SAT 97
[2017-02-21 04:50] VITALS: BP 117/82; PULSE 96; TEMP 36.7; O2SAT 96
[2017-02-21] MEDS ORDERED: DC PCA SCH (06:00)
[2017-02-21] MEDS ORDERED: KETOROLAC TROMETHAMINE 30 MG/ML VIAL IV. PRN (06:30)
[2017-02-21] MEDS ORDERED: MEPERIDINE HCL 50 MG/ML CARP IV PRN ×2 (06:30)
[2017-02-21] MEDS: ONDANSETRON INJ 2 MG/ML 2 ML VIAL IV PRN (07:17)
[2017-02-21 07:20] VITALS: BP 108/74; PULSE 81; TEMP 36.7
--- NOTE | 2017-02-21 07:28 | Progress Note ---
Subjective Feb 21, 2017. Subjective conversation w/ patient, physical exam, chart review, lab review Ambulation: ambulating normally Voiding: no voiding problems Passing Gas: Yes Diet Tolerance: Clear Liquids Lochia: Moderate Feeding Type: Bottle Feeding Pain: moderate - asking for more medication. Review of Systems Respiratory: No shortness of breath Cardiac: No chest pain Abdomen: + nausea, No vomiting Female : No dysuria Objective Vital Signs Date Time Temp Pulse Resp B/P (MAP) Pulse Ox O2 Delivery O2 Flow Rate FiO2 02/21/17 04:50 36.7 96 16 117/82 (94) 96 Room Air 02/20/17 23:10 Room Air 02/20/17 23:10 36.8 94 18 125/84 (98) 97 Room Air 02/20/17 19:35 36.8 73 18 128/78 (95) 97 Room Air 02/20/17 19:35 Room Air 02/20/17 16:50 Room Air 02/20/17 16:50 36.6 81 20 123/56 (78) Room Air 02/20/17 16:50 Room Air Physical Exam General Appearance: WELL-APPEARING, WD/WN, NO APPARENT DISTRESS Respiratory/Chest: lungs clear, normal breath sounds, no respiratory distress Cardiovascular: regular rate, rhythm, no gallop Abdomen: normal bowel sounds, soft Fundus: Firm, Tender (appropriately tender), Relation to Umbilicus (at level of U) Extremities: no calf tenderness Laboratory Results Last 24 Hours Test 02/21/17 06:57 Assessment and Plan Problem List Post-Op Day#: 1 Continue Routine Care: - Vital Signs reviewed and WNL. - Hemoglobin PENDING. - Blood Type: B+, GBS +, Rubella Immune. - Pt is doing well clinically. - Encourage Ambulation, Monitor and Control pain with Motrin PRN, Resume regular diet, Monitor Lochia - Pt complaining of persistent pain in lower pelvis, ordered Ketoralac. Pt says she takes prilosec qam, ordered. Pt complaining of nausea, nurse will adm zofran. Pt said she wanted to keep bandage on till after breakfast, so I did not visualize incision. - Continue routine post op care. ABDIRASHID CROCKETT PGY1 FM RESIDENT. Resident Physician Supervision Note: I interviewed and examined the patient. Discussed with Dr. Crockett and agree with findings and plan as documented in the note. Any exceptions or clarifications are listed here: Dressing removed, incision C/D/I. Documented By: María Elena Mcclellan Resident Tracking Resident Involvement: Resident Care Provided Care Provided: OB Delivery
[2017-02-21] MEDS: PRENATAL VITAMIN TAB PO SCH (07:58)
[2017-02-21] MEDS: DOCUSATE SODIUM 100 MG CAP PO SCH ×2 (07:58→19:44)
[2017-02-21] MEDS: SIMETHICONE 80 MG CHEW PO SCH ×4 (07:58→19:44)
[2017-02-21] MEDS: IBUPROFEN 600 MG TAB PO PRN ×4 (07:58→20:51)
[2017-02-21] MEDS: OXYCODONE/ACETAMINOPHEN 5-325 TAB PO PRN ×4 (07:59→20:51)
--- NOTE | 2017-02-21 08:04 | Discharge Instructions ---
Discharge Instructions Date of Service Feb 21, 2017. Admission Reason for Admission: Induction Discharge Discharge Diagnosis / Problem: DELIVERY Discharge Goals Goal(s): Routine recovery after Medications Continue Dispensed Medications: supercream, dermaplast, tucks, lansinoh Activity Recommendations Activity Limitations: per Instructions/Follow-up section . Instructions / Follow-Up Instructions / Follow-Up ACTIVITY RECOMMENDATIONS: * Gradual return to full activity over the next 2-3 weeks. * No lifting - nothing heavier than baby over the next 2-3 weeks. * Do not engage in vigorous exercise, sexual activity or sports until cleared by your physician. * Do not drive or operate any motorized equipment until cleared by your physician. * You may shower/bathe daily. MEDICATIONS: For discomfort or pain, you may use Acetaminophen (Tylenol), Ibuprofen (Advil), or Naproxen (Aleve) following the package directions. For constipation you may use Colace following the package directions. BREAST CARE: If you are not breast feeding: * Wear a supportive bra 24 hours a day for one to two weeks. * Avoid stimulating your breasts and nipples as much as possible during the first few weeks after delivery. * When taking a shower, have the warm water hit your back, not breasts. * When your breasts feel full, apply ice packs. Usually three to four times a day helps ease the discomfort. * Take a mild pain medication (Tylenol / Motrin) when you are uncomfortable. If breast feeding: * Use breast milk to lubricate nipples. Lansinoh cream may be used for sore nipples. You do not need to remove cream prior to breast feeding. If using a different brand of cream, check the label for directions regarding removal of cream prior to nursing. * Wear a supportive bra. * If having problems with breasts or breast feeding, call a development consultant or your health care provider. SPECIAL CARE INSTRUCTIONS: When you are discharged from the hospital, it is important for you to follow the instructions listed below: * During the first week at home, you should be able to care for yourself and your baby. In addition, the usual light household activities are encouraged. * Limit your activities to the way you feel. Do not try to clean the house or move furniture. Be sensible. * If you actively engage in sports and have done so up until the time of your delivery, you may resume these activities as soon as you feel able. This may take up to one month or even longer. Use good judgment. * Continue to take your vitamins for at least six weeks after the of your baby. * Your diet need not be limited unless you were on a special diet before your delivery. Breast-feeding mothers need around 2500 calories per day and at least 64-80 ounces of fluid per day (8 to 10 glasses). * You should eat foods from the four major food groups. Crash diets or fad diets are to be avoided. Eating lean meats, fresh fruits and vegetables, low-fat dairy products, high fiber foods and a regular exercise program, will help you get back to your pre- weight without putting your health at risk. * Constipation is sometimes a problem after delivery. Take a mild laxative as needed. If breast feeding, Milk of Magnesia is acceptable to use. You may use a suppository or Fleets enema. * A daily shower or tub bath is suggested. Wash incision daily with warm soapy water and pat dry. It doesn't need to be covered unless drainage is present. * A bloody vaginal discharge will usually continue until around four weeks . A small amount of bleeding may continue for as long as six weeks. Vaginal discharge changes from the bright red bleeding after delivery to pink then brownish and finally yellowish-pink before becoming white and disappearing. * Bleeding may increase with activity. Your first period may come in 4-8 weeks. If you are breast feeding, your period may be delayed even longer. * [place] (sex) can begin whenever both you and your partner feel comfortable and do not have any form of genital infection. It is recommended that you wait at least six weeks for internal and external healing to occur. If you have questions, please talk to your health care practitioner. A condom should be used to prevent infection and . * Foreplay, gentle intercourse and lubrication is very important the first several times to prevent pain. A water-based lubricant such as K-Y jelly or Astroglide may be used. * If you have RH negative blood and your baby is RH positive, you will receive RHOGAM by injection prior to discharge. The nurse will give you a card to keep with you that has the date and place that you received RHOGAM after delivery. * During your care, you had a Rubella screen done to check for the presence of rubella antibodies in your blood. If your test was negative, you will receive a Rubella vaccine prior to discharge. This vaccine may cause a fever, soreness at the injection site and flu-like symptoms. If these symptoms persist, notify your health care practitioner. is not advised for one month after a Rubella vaccine. * Verbalizes understanding of car seat law as reviewed with patient nursing. * Car Seat hand-out given and reviewed with patient by nursing. * Shaken baby information reviewed with patient by nursing. Call you doctor if: * Heavy bleeding (saturating several pads an hour) or passing clots the size of your fist. * A fever >101 degrees F (38.3 degrees C) on two occasions four hours apart and /or chills. * Unusual pain in the pelvic or vaginal areas. * Call the doctor for any increased redness, drainage or swelling around the incision and any pain unrelieved by prescribed pain medication. * "Baby Blues" lasting longer than two weeks. If you have any questions or concerns, call your health care practitioner at . FOLLOW UP VISIT: * Please call the office at to schedule a 6 week examination. It is important you keep this appointment. It is important for you to make arrangements for either yearly or twice yearly check-ups thereafter. Current Hospital Diet Patient's current hospital diet: Regular Diet Discharge Diet Recommended Diet: Regular Diet Procedures Procedures Performed: Low uterine transverse incision, primary caesarean, delievery of live male child at 1222 Pending Studies Studies pending at discharge: no Medical Emergencies . Who to Call and When: Medical Emergencies: If at any time you feel your situation is an emergency, please call [phone] immediately. . Non-Emergent Contact Non-Emergency issues call your: Primary Care Provider . . "Provider Documentation" section prepared by Sandy Crockett. . VTE Core Measure Inpt VTE Proph given/why not?: SCD's
[2017-02-21 08:18] LABS: BASO % 0.1 %; BASO ABS # 0.01 K/uL (0-0.2); COMPLETE YES; EOS % 0.1 %; HEMATOCRIT 31.6 % (37-47); IG% 0.5 %; LYMPH % 10.6 %; LYMPH ABS # 2.05 K/uL (1.2-3.4); MEAN CELL VOLUME 85.4 fL (80-100); MEAN CORPUSCULAR HEMOGLOBIN 28.6 pg (25-34); MEAN CORPUSCULAR HGB CONC 33.5 g/dl (32-36); MEAN PLATELET VOLUME 10.8 fL (7.4-10.4); MONO % 8.4 %; NEUT % 80.3 %; PLATELET COUNT 295 K/uL (130-400); WHITE BLOOD COUNT 19.31 K/uL (4.8-10.8)
[2017-02-21] MEDS ORDERED: DIPHTHERIA/TETANUS/PERTUSSIS 0.5 ML SYR/VIAL IM. ONE (09:00)
[2017-02-21] MEDS: PANTOprazole SOD 40 MG TAB PO SCH (11:29)
[2017-02-21 13:30] VITALS: BP 108/69; PULSE 105; TEMP 36.8
[2017-02-21 15:20] VITALS: BP 133/84; PULSE 97; TEMP 36.9; O2SAT 97
[2017-02-21 23:05] VITALS: BP 131/83; PULSE 101; TEMP 36.9
[2017-02-22] MEDS: OXYCODONE/ACETAMINOPHEN 5-325 TAB PO PRN ×3 (00:02→09:55)
[2017-02-22] MEDS: IBUPROFEN 600 MG TAB PO PRN ×2 (06:17→09:56)
[2017-02-22 07:45] VITALS: BP 121/74; PULSE 87; TEMP 36.9
--- NOTE | 2017-02-22 08:40 | Progress Note ---
Subjective Feb 22, 2017. Subjective conversation w/ patient, physical exam Ambulation: ambulating normally Voiding: no voiding problems Passing Gas: Yes Diet Tolerance: Regular Diet Lochia: Small Feeding Type: Breast Feeding Pain: controlled with oral pain meds Review of Systems Constitutional: No fever, No chills, No sweats, No weight loss, No weakness, No fatigue, No problem reported Breast: No see HPI, No breast lump, No change in shape, No nipple discharge, No breast pain, No problem reported Female : No see HPI, No dysuria, No urinary frequency, No hematuria, No incontinence, No abnormal vaginal bleeding, No vaginal discharge, No problem reported Objective Vital Signs Date Time Temp Pulse Resp B/P (MAP) Pulse Ox O2 Delivery O2 Flow Rate FiO2 02/21/17 23:05 Room Air 02/21/17 23:05 36.9 101 18 131/83 (99) Room Air 02/21/17 15:20 97 Room Air 02/21/17 15:20 36.9 97 18 133/84 (100) 97 Room Air 02/21/17 13:30 36.8 105 18 108/69 (82) Room Air Physical Exam General Appearance: WELL-APPEARING Abdomen: soft Fundus: Firm, Non-Tender, Relation to Umbilicus (2 below U) Incision Description: Clean, Dry & Intact Extremities: no calf tenderness Assessment and Plan Problem List Medical Problems: (1) Pelvic pain Status: Acute (2) Urinary tract infection Status: Acute (3) UTI (urinary tract infection) Status: Acute Post-Op Day#: 2 Continue Routine Care: stable post-op/ course continue current care plan
[2017-02-22] MEDS ORDERED: MTR600X PO (09:36)
[2017-02-22] MEDS ORDERED: OXYC-57 PO (09:36)
[2017-02-22] MEDS: PRENATAL VITAMIN TAB PO SCH (09:55)
[2017-02-22] MEDS: PANTOprazole SOD 40 MG TAB PO SCH (09:55)
[2017-02-22] MEDS: SIMETHICONE 80 MG CHEW PO SCH ×2 (09:55→11:34)
[2017-02-22] MEDS: DOCUSATE SODIUM 100 MG CAP PO SCH (11:35)
[2017-02-22 13:45] VITALS: BP_DIAS 74; PULSE 87; TEMP 36.9
--- NOTE | 2017-02-22 17:46 | DISCHARGE SUMMARY ---
DATE OF DELIVERY: 02/20/2017. PRINCIPAL PROCEDURE: Primary low transverse cervical section. PRINCIPAL DIAGNOSES: Intrauterine at 37 weeks, gestational hypertension, and nonreassuring heart rate pattern. HISTORY: The patient is a 21-year-old 2, para 0-0-1-0 white female, EDC of 03/12/2017, who presented for induction because of gestational hypertension. She had received 4 doses of vaginal Cytotec and there had been moderate variables in the heart rate pattern the night prior to her delivery. She had been rested overnight and a cervical Arteaga had been attempted, but was unsuccessful. She received a Cervidil vaginally on the morning of 02/20/2017. Following this, there were 3 episodes of heart variables, the last one lasted for 5 minutes and then lily with 60 beats per minute. Because of the ongoing variables and the cervix, which was still closed, we proceeded with low transverse cervical section. This was done without difficulty and without complications. The patient had an uncomplicated postop course. She was eating regular diet on her 1st postop day. She was ambulating and voiding without difficulty as well. The was done under general anesthetic because of the patient's morbid obesity and recurring decelerations. Her hemoglobin on admission was 12.0 and hematocrit 35.4. First postop day, hemoglobin 10.6 and hematocrit 31.6. She was sent home with prescriptions for Percocet 1 or 2 tablets p.o. q. 4 hours p.r.n. pain and Motrin 600 mg p.o. q. 4 hours p.r.n. pain. She is to be seen in the office in 6 weeks for a postop visit. She is to call for a temperature of 101 degrees or higher, heavy vaginal bleeding, burning with urination, increased redness, drainage or pain in her incision, calf tenderness or any other concerns.
== END 2017-02-22 14:00 | disposition home or self-care (01) | DRG 765 ==
LOC: C.LD 12:55 → C.OBG 02-20 17:09
PROVIDERS: ADMIT Obstetrics & Gynecology; ATTEND Obstetrics & Gynecology
PROC: 3E0P7GC Introduction of Other Therapeutic Substance into Female Reproductive, Via Natural or Artificial Opening (ICD-10-PCS; principal; 2017-02-20 12:05)
PROC: 10D00Z1 Extraction of Products of Conception, Low, Open Approach (ICD-10-PCS; principal; 2017-02-20 12:05)
DX: O13.4 Gestational [pregnancy-induced] hypertension without significant proteinuria, complicating childbirth (principal); Z68.43 Body mass index [BMI] 50.0-59.9, adult; Z37.0 Single live birth; O76 Abnormality in fetal heart rate and rhythm complicating labor and delivery; O69.1XX0 Labor and delivery complicated by cord around neck, with compression, not applicable or unspecified; O99.824 Streptococcus B carrier state complicating childbirth; O61.0 Failed medical induction of labor; O99.02 Anemia complicating childbirth; D64.9 Anemia, unspecified; O99.214 Obesity complicating childbirth; E66.01 Morbid (severe) obesity due to excess calories; O99.62 Diseases of the digestive system complicating childbirth; K21.9 Gastro-esophageal reflux disease without esophagitis; Z3A.37 37 weeks gestation of pregnancy; Z79.899 Other long term (current) drug therapy

== ENCOUNTER 2017-05-23 21:09 | Emergency (ER) | payer BC ==
[~2017-05-23] VITALS: Ht 165.1 cm; Wt 129.0 kg
[~2017-05-23 21:09] MED LIST changes: +MTR600X PO
[2017-05-23 21:13] VITALS: TEMP 36.9; Ht 165.1 cm; Wt 129.0 kg
[2017-05-23] MEDS ORDERED: SERT25TA PO (21:39)
[2017-05-23] MEDS ORDERED: LORAZEPAM 1 MG TAB SL STA (22:12)
[2017-05-23 22:30] LABS: BASO % 0.8 %; BASO ABS # 0.09 K/uL (0-0.2); COMPLETE YES; EOS % 0.5 %; HEMATOCRIT 38.7 % (37-47); IG% 0.3 %; LYMPH % 32.1 %; LYMPH ABS # 3.43 K/uL (1.2-3.4); MEAN CELL VOLUME 82.2 fL (80-100); MEAN CORPUSCULAR HEMOGLOBIN 27.4 pg (25-34); MEAN CORPUSCULAR HGB CONC 33.3 g/dl (32-36); MEAN PLATELET VOLUME 9.8 fL (7.4-10.4); MONO % 7.9 %; NEUT % 58.4 %; PLATELET COUNT 351 K/uL (130-400); RED BLOOD COUNT 4.71 M/uL (4.2-5.4); WHITE BLOOD COUNT 10.68 K/uL (4.8-10.8)
--- NOTE | 2017-05-23 22:34 | DIAGNOSTIC IMAGING REPORT ---
CHEST ONE VIEW PORTABLE HISTORY: Atypical Chest Pain COMPARISON: Chest 04/28/2017. FINDINGS: The lungs are clear. Cardiac silhouette is borderline enlarged. This may be due to the low lung volumes. No pleural effusions. No pneumothorax. IMPRESSION: No acute process. Electronically signed by: Kris Rodriguez M.D. 05/23/2017 10:33 PM Dictated Date/Time: 05/23/2017 10:29 PM
[2017-05-23 22:48] LABS: BLOOD UREA NITROGEN 14 mg/dl (7-18); BUN/CREATININE RATIO 14.7 (10-20); CALCIUM 9.1 mg/dl (8.5-10.1); CARBON DIOXIDE 24 mmol/L (21-32); CHLORIDE 107 mmol/L (98-107); CREATININE 0.93 mg/dl (0.60-1.20); GLUCOSE 96 mg/dl (70-99); POTASSIUM 3.4 mmol/L (3.5-5.1); SODIUM 139 mmol/L (136-145)
[2017-05-23 23:11] VITALS: BP 125/78; PULSE 80; O2SAT 97
--- NOTE | 2017-05-23 23:29 | EMERGENCY ROOM VISIT NOTE ---
History Report prepared by Yash: Edmar Belle Under the Supervision of: Dr. Umberto Carrillo D.O. First contact with patient: 21:15 Chief Complaint: CARDIAC ASSESSMENT Stated Complaint: CHEST PAIN/ANXIETY History of Present Illness The patient is a 22 year old female who presents to the Emergency Room with complaints of worsening anxiety occurring this week. The patient additionally states that she has been having anxiety for the past two days. The patient states that three months ago she had a baby 3 months ago, and she had post- depression. The patient states that she had a traumatic deliver and had to have an emergency . 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 She denies any suicidal and homicidal ideations. The patient notes that she has not been eating and drinking very much. She tried to eat today, but she became nauseous, though she was able to drink. The patient is additionally complaining of shortness of breath and a sharp chest pain that is worsened with anxiety. Patient denies diabetes, hypertension, hyperlipidemia, CAD, and history of sudden at a young age. Patient denies swelling of calves, recent trips, history of immobilization or recent surgery, prior history of DVT, hemoptysis, history of malignancy, history of smoking, or control/estrogen use. Pt denies headache, change in vision, fevers, vomiting, diarrhea, pain with urination, and melena. Source of History: patient Onset: a week ago Position: other (global) Quality: other (anxiety) Timing: worsening Associated Symptoms: + chest pain, + SOB, + nausea Review of Systems See HPI for pertinent positives & negatives. A total of 10 systems reviewed and were otherwise negative. Past Medical & Surgical Medical Problems: (1) Body mass index (BMI) of 45.0-49.9 in adult (2) cervical ripening (3) Dysfunctional uterine bleeding (4) Elevated blood pressure affecting in third trimester, antepartum (5) Encounter for supervision of normal intrauterine in primigravida, antepartum (6) (7) with 35 completed weeks gestation (8) UTI (urinary tract infection) Surgical Problems: (1) Kidney stone Family History Patient reports no known family medical history. Social History Smoking Status: Never Smoker Drug Use: none Marital Status: Housing Status: lives with family Occupation Status: employed Current/Historical Medications Scheduled Multivit/Min/Iron/Fol Ac/Pren ( Vitamin), 2 TABS PO DAILY Sertraline (Zoloft), 25 MG PO DAILY Allergies Coded Allergies: Sulfamethoxazole w/Trimethoprim (Verified Allergy, Intermediate, HIVES, ) Physical Exam Vital Signs Date Time Temp Pulse Resp B/P (MAP) Pulse Ox O2 Delivery O2 Flow Rate FiO2 05/23/17 23:11 80 18 125/78 97 Room Air 05/23/17 21:13 36.9 123 18 177/129 97 Room Air Physical Exam GENERAL: Morbidly obese, sitting up in bed, no distress, non-toxic EYE EXAM: normal conjunctiva. OROPHARYNX: no exudate, no erythema, lips, buccal mucosa, and tongue normal and mucous membranes are moist NECK: supple, no nuchal rigidity, no adenopathy, non-tender LUNGS: Clear to auscultation. Normal chest wall mechanics HEART: no murmurs, S1 normal and S2 normal ABDOMEN: abdomen soft, non-tender, normo-active bowel sounds, no masses, no rebound or guarding. BACK: Back is symmetrical on inspection and there is no deformity, no midline tenderness, no CVA tenderness. SKIN: no rashes and no bruising UPPER EXTREMITIES: upper extremities are grossly normal. LOWER EXTREMITIES: Calves are equal bilaterally. No pitting edema. NEURO EXAM: Normal sensorium, cranial nerves II-XII grossly intact, normal speech, no gross weakness of arms, no gross weakness of legs. Gross sensation intact. Medical Decision & Procedures ER Provider Diagnostic Interpretation: Radiology results as stated below per my review and the radiologist's interpretation: CHEST ONE VIEW PORTABLE HISTORY: Atypical Chest Pain COMPARISON: Chest 04/28/2017. FINDINGS: The lungs are clear. Cardiac silhouette is borderline enlarged. This may be due to the low lung volumes. No pleural effusions. No pneumothorax. IMPRESSION: No acute process. Electronically signed by: Kris Rodriguez M.D. 05/23/2017 10:33 PM Dictated Date/Time: 05/23/2017 10:29 PM Laboratory Results 05/23/17 22:14 Red Blood Count 4.71, Mean Corpuscular Volume 82.2, Mean Corpuscular Hemoglobin 27.4, Mean Corpuscular Hemoglobin Concent 33.3, Mean Platelet Volume 9.8, Neutrophils (%) (Auto) 58.4, Lymphocytes (%) (Auto) 32.1, Monocytes (%) (Auto) 7.9, Eosinophils (%) (Auto) 0.5, Basophils (%) (Auto) 0.8, Neutrophils # (Auto) 6.24, Lymphocytes # (Auto) 3.43, Monocytes # (Auto) 0.84, Eosinophils # (Auto) 0.05, Basophils # (Auto) 0.09 05/23/17 22:14 Test 05/23/17 22:14 White Blood Count 10.68 K/uL (4.8-10.8) Red Blood Count 4.71 M/uL (4.2-5.4) Hemoglobin 12.9 g/dL (12.0-16.0) Hematocrit 38.7 % (37-47) Mean Corpuscular Volume 82.2 fL (80-100) Mean Corpuscular Hemoglobin 27.4 pg (25-34) Mean Corpuscular Hemoglobin Concent 33.3 g/dl (32-36) Platelet Count 351 K/uL (130-400) Mean Platelet Volume 9.8 fL (7.4-10.4) Neutrophils (%) (Auto) 58.4 % Lymphocytes (%) (Auto) 32.1 % Monocytes (%) (Auto) 7.9 % Eosinophils (%) (Auto) 0.5 % Basophils (%) (Auto) 0.8 % Neutrophils # (Auto) 6.24 K/uL (1.4-6.5) Lymphocytes # (Auto) 3.43 K/uL (1.2-3.4) Monocytes # (Auto) 0.84 K/uL (0.11-0.59) Eosinophils # (Auto) 0.05 K/uL (0-0.5) Basophils # (Auto) 0.09 K/uL (0-0.2) RDW Standard Deviation 42.9 fL (36.4-46.3) RDW Coefficient of Variation 14.2 % (11.5-14.5) Immature Granulocyte % (Auto) 0.3 % Immature Granulocyte # (Auto) 0.03 K/uL (0.00-0.02) D-Dimer < 190 ug/L FEU (0-500) Anion Gap 9.0 mmol/L (3-11) Est Creatinine Clear Calc Drug Dose 126.3 ml/min Estimated GFR () 99.7 Estimated GFR (Non- 86.0 BUN/Creatinine Ratio 14.7 (10-20) Calcium Level 9.1 mg/dl (8.5-10.1) Total Creatine Kinase 91 U/L (26-192) Creatine Kinase MB < 0.5 ng/ml (0.5-3.6) Creatine Kinase MB Ratio (0-3.0) Troponin I < 0.015 ng/ml (0-0.045) Laboratory results per my review. Medications Administered Medications (Trade) Dose Ordered Sig/Jordon Route Start Time Stop Time Status Last Admin Dose Admin Lorazepam (Ativan Tab) 1 mg NOW STAT SL 05/23/17 22:12 05/23/17 22:13 DC 05/23/17 22:26 1 MG ECG Indication: chest pain Rate (beats per minute): 94 Rhythm: sinus rhythm Findings: no ectopy, other (Normal axis) ED Course ED COURSE: Vital signs were reviewed and showed tachycardia and hypertension. The patients medical record was reviewed The above diagnostic studies were performed and reviewed. ED treatments and interventions as stated above. 2114: The patient was evaluated in room C3. A complete history and physical examination was performed. 2211: Ativan 1mg SL 2255: Upon reevaluation, the patient is doing well.I discussed my findings with the patient and she understands and agrees with the treatment plan. Based on the patients age, coexisting illnesses, exam and lab findings the decision to treat as an outpatient was made. The patient remained stable while under my care. The patient appeared well at the time of discharge. Medical Decision Differential diagnoses includes but is not limited to acute coronary syndrome, myocardial infarction, pericarditis, pulmonary embolus, aortic dissection, pneumonia, pneumothorax, musculoskeletal, shingles, esophageal. Patient is a 22-year-old female who presents to ER for chest pain associated with shortness of breath and anxiety. She is 3 months and that she has been suffering with depression. Anxiety has been worsening over the past week. Recently started on Zoloft with minimal improvement. Symptoms are worse with work. Follow-up with PCP today which was unhelpful. Patient presents and notes that she has had chest pain and shortness of breath all day. Chest pain is sharp. No cardiac risk factors. EKG and troponin were negative with pain greater than 6 hours. D-dimer was negative. Patient was given Ativan and felt significant better. Patient was valuated by psychiatry. She was given outpatient follow-up. Patient was discharged with anxiety to follow-up as an outpatient. She denies any suicidal or homicidal ideations. Discussed with Pt concerning signs and symptoms to watch out for. Pt was instructed to follow up with their PCP and discussed with the patient their option to return to the ED at anytime for persistent or worsening symptoms. The appropriate anticipatory guidance and out-patient management, including indications for return to the emergency department, were explained at length to the patient and understood. Medication Reconcilliation Current Medication List: was personally reviewed by me Blood Pressure Screening Patient's blood pressure: Elevated blood pressure Blood pressure disposition: Elevated BP felt to be situational Impression Primary Impression: Precordial chest pain Additional Impression: Anxiety Scribe Attestation The scribe's documentation has been prepared under my direction and personally reviewed by me in its entirety. I confirm that the note above accurately reflects all work, treatment, procedures, and medical decision making performed by me. Departure Information Dispostion Home / Self-Care Referrals Steven Moore M.D.(DANITA) (PCP) Forms IMPORTANT VISIT INFORMATION Patient Instructions Anxiety Body Response, My [facility] Additional Instructions Please follow up with your primary care doctor with in the next 24 hours. Any worsening of your symptoms, please return to the ED immediately. This includes any fevers greater than 100.4, worsening pain, chest pain, shortness breath, persistent nausea, vomiting, unable to eat or drink, or any thoughts of self- harm or harming anyone else or any other concerning signs or symptoms from your standpoint. You were given medications during this visit that will inhibit your ability to drive, operate machinery and work. Please do NOT drive, operate machinery, drink alcohol or work for the next 12hrs. Problem Qualifiers
[2017-05-23] MEDS ORDERED: LORA-741 PO (23:39)
== END 2017-05-23 23:44 | disposition home or self-care (01) ==
LOC: C.EDB 21:10 → C.EDC 23:44
DX: R07.2 Precordial pain (principal); F41.9 Anxiety disorder, unspecified; Z87.440 Personal history of urinary (tract) infections; Z87.442 Personal history of urinary calculi; Z79.899 Other long term (current) drug therapy; Z88.2 Allergy status to sulfonamides

== ENCOUNTER 2017-08-03 21:24 | Emergency (ER) | payer BC ==
[~2017-08-03] VITALS: Ht 167.6 cm; Wt 133.0 kg
[~2017-08-03 21:24] MED LIST changes: -PRLSR20 PO
[2017-08-03 21:35] VITALS: TEMP 36.8; Ht 167.6 cm; Wt 133.0 kg
[2017-08-03] MEDS ORDERED: PRLSR20 PO (23:14)
[2017-08-03 23:15] LABS: BASO % 0.7 %; BASO ABS # 0.07 K/uL (0-0.2); EOS % 1.7 %; EOS ABS # 0.18 K/uL (0-0.5); HEMATOCRIT 40.7 % (37-47); HEMOGLOBIN 13.5 g/dL (12.0-16.0); IG# 0.03 K/uL (0.00-0.02); LYMPH % 31.5 %; LYMPH ABS # 3.39 K/uL (1.2-3.4); MEAN CELL VOLUME 82.1 fL (80-100); MEAN CORPUSCULAR HEMOGLOBIN 27.2 pg (25-34); MEAN CORPUSCULAR HGB CONC 33.2 g/dl (32-36); MEAN PLATELET VOLUME 9.9 fL (7.4-10.4); MONO % 7.6 %; MONO ABS # 0.82 K/uL (0.11-0.59); NEUT % 58.2 %; NEUT ABS # 6.26 K/uL (1.4-6.5); PLATELET COUNT 354 K/uL (130-400); RED CELL DISTRIBUTION WIDTH CV 14.5 % (11.5-14.5); RED CELL DISTRIBUTION WIDTH SD 43.2 fL (36.4-46.3); WHITE BLOOD COUNT 10.75 K/uL (4.8-10.8)
[2017-08-03 23:39] LABS: CALCIUM 8.8 mg/dl (8.5-10.1); CREATININE 0.85 mg/dl (0.60-1.20); POTASSIUM 3.9 mmol/L (3.5-5.1)
[2017-08-04] MEDS ORDERED: KETOROLAC TROMETHAMINE 30 MG/ML VIAL IV STA (01:12)
[2017-08-04] MEDS ORDERED: ONDANSETRON INJ 2 MG/ML 2 ML VIAL IV STA (01:12)
[2017-08-04] MEDS ORDERED: ONDANSETRON HOME PACK 4MG OD TAB PO ONE (01:15)
[2017-08-04] MEDS ORDERED: SODIUM CHLORIDE 0.9% 1000ML 1,000 ML IV STA (01:46)
[2017-08-04] MEDS ORDERED: MoRPHine SULFATE 4 MG/ML 1 ML CARP\\VIAL IV STA (01:46)
[2017-08-04] MEDS ORDERED: OPTIRAY 320 IV PRN (02:00)
[2017-08-04] MEDS ORDERED: MAGNESIUM CITRATE 296 ML/BTL PO ONE (02:45)
--- NOTE | 2017-08-04 02:55 | EMERGENCY ROOM VISIT NOTE ---
History First contact with patient: 22:25 Chief Complaint: PELVIC PAIN Stated Complaint: ABD PAIN History of Present Illness The patient is a 22 year old female who presents to the Emergency Room with complaints of left lower quadrant pain for the past day that is steadily getting worse currently 6 out of 10. Nothing makes it better or worse. It does not radiate. She saw OB today and is supposed to get a pelvic ultrasound for possible cyst. She is concerned she might be . Last menstrual was June. Patient denies chest pain, dyspnea, fever, chills, vomiting, diarrhea , back pain, flank pain, urinary symptoms, vaginal itching or discharge. She does not feel at risk for STI's. She is in a monogamous relationship. Review of Systems An 10 system review of systems was completed with positives and pertinent negatives listed in the HPI. Past Medical/Surgical History Medical Problems: (1) Body mass index (BMI) of 45.0-49.9 in adult (2) cervical ripening (3) Dysfunctional uterine bleeding (4) Elevated blood pressure affecting in third trimester, antepartum (5) Encounter for supervision of normal intrauterine in primigravida, antepartum (6) (7) with 35 completed weeks gestation (8) UTI (urinary tract infection) Surgical Problems: (1) Kidney stone Diverticulitis Family History Patient reports no known family medical history. Social History Smoking Status: Never Smoker Smokeless Tobacco Use: No Drug Use: none Marital Status: Housing Status: lives with family Occupation Status: employed Current/Historical Medications Scheduled Multivit/Min/Iron/Fol Ac/Pren ( Vitamin), 2 TABS PO DAILY Omeprazole (Prilosec), 20 MG PO DAILY Sertraline (Zoloft), 100 MG PO DAILY Physical Exam Vital Signs Date Time Temp Pulse Resp B/P (MAP) Pulse Ox O2 Delivery O2 Flow Rate FiO2 08/04/17 01:27 65 18 141/77 98 Room Air 08/03/17 23:42 90 18 130/82 98 Room Air 08/03/17 21:35 36.8 92 20 152/93 100 Room Air Physical Exam VITALS: Vitals are noted on the nurse's note and reviewed by myself. Vital signs hypertensive GENERAL: Pleasant female, in no acute distress, nondiaphoretic, well-developed well-nourished. SKIN: Capillary reflex less than 2 seconds. HEENT: Normocephalic. PERRLA. EOMI. Nares patent. Mucous membranes moist. Neck is supple without nuchal rigidity. HEART: Regular rate and rhythm without murmurs gallops or rubs. LUNGS: Clear to auscultation bilaterally without wheezes, rales or rhonchi. No retractions or accessory muscle use. ABDOMEN: Positive bowel sounds x 4. Normal tympanic percussion. Soft, protuberant, obese, tender to palpation left lower suprapubic region, no CVA tenderness, without masses or organomegaly. Rivas sign negative. No guarding or rebound tenderness. MUSCULOSKELETAL: No gross musculoskeletal defects. No calf tenderness. NEURO: Patient was alert and oriented to person place and time. Normal sensation to light and sharp touch. No focal neurological deficits. Medical Decision & Procedures Laboratory Results 08/03/17 22:47 Red Blood Count 4.96, Mean Corpuscular Volume 82.1, Mean Corpuscular Hemoglobin 27.2, Mean Corpuscular Hemoglobin Concent 33.2, Mean Platelet Volume 9.9, Neutrophils (%) (Auto) 58.2, Lymphocytes (%) (Auto) 31.5, Monocytes (%) (Auto) 7.6, Eosinophils (%) (Auto) 1.7, Basophils (%) (Auto) 0.7, Neutrophils # (Auto) 6.26, Lymphocytes # (Auto) 3.39, Monocytes # (Auto) 0.82, Eosinophils # (Auto) 0.18, Basophils # (Auto) 0.07 08/03/17 22:47 Test 08/03/17 22:40 08/03/17 22:47 Urine Color YELLOW Urine Appearance CLOUDY (CLEAR) Urine pH 5.5 (4.5-7.5) Urine Specific [place] 1.031 (1.000-1.030) Urine Protein NEG (NEG) Urine Glucose (UA) NEG (NEG) Urine Ketones NEG (NEG) Urine Occult Blood NEG (NEG) Urine Nitrite NEG (NEG) Urine Bilirubin NEG (NEG) Urine Urobilinogen NEG (NEG) Urine Leukocyte Esterase NEG (NEG) Urine WBC (Auto) 1-5 /hpf (0-5) Urine RBC (Auto) 5-10 /hpf (0-4) Urine Hyaline Casts (Auto) 1-5 /lpf (0-5) Urine Epithelial Cells (Auto) >30 /lpf (0-5) Urine Bacteria (Auto) NEG (NEG) White Blood Count 10.75 K/uL (4.8-10.8) Red Blood Count 4.96 M/uL (4.2-5.4) Hemoglobin 13.5 g/dL (12.0-16.0) Hematocrit 40.7 % (37-47) Mean Corpuscular Volume 82.1 fL (80-100) Mean Corpuscular Hemoglobin 27.2 pg (25-34) Mean Corpuscular Hemoglobin Concent 33.2 g/dl (32-36) Platelet Count 354 K/uL (130-400) Mean Platelet Volume 9.9 fL (7.4-10.4) Neutrophils (%) (Auto) 58.2 % Lymphocytes (%) (Auto) 31.5 % Monocytes (%) (Auto) 7.6 % Eosinophils (%) (Auto) 1.7 % Basophils (%) (Auto) 0.7 % Neutrophils # (Auto) 6.26 K/uL (1.4-6.5) Lymphocytes # (Auto) 3.39 K/uL (1.2-3.4) Monocytes # (Auto) 0.82 K/uL (0.11-0.59) Eosinophils # (Auto) 0.18 K/uL (0-0.5) Basophils # (Auto) 0.07 K/uL (0-0.2) RDW Standard Deviation 43.2 fL (36.4-46.3) RDW Coefficient of Variation 14.5 % (11.5-14.5) Immature Granulocyte % (Auto) 0.3 % Immature Granulocyte # (Auto) 0.03 K/uL (0.00-0.02) Anion Gap 8.0 mmol/L (3-11) Est Creatinine Clear Calc Drug Dose 143.0 ml/min Estimated GFR () 111.2 Estimated GFR (Non- 95.9 BUN/Creatinine Ratio 22.5 (10-20) Calcium Level 8.8 mg/dl (8.5-10.1) Human Chorionic Gonadotropin, Qual NEG (NEG) Medications Administered Medications (Trade) Dose Ordered Sig/Jordon Route Start Time Stop Time Status Last Admin Dose Admin Ketorolac Tromethamine (Toradol Inj) 30 mg NOW STAT IV 08/04/17 01:12 08/04/17 01:13 DC 08/04/17 01:24 30 MG Ondansetron HCl (Zofran Inj) 4 mg NOW STAT IV 08/04/17 01:12 08/04/17 01:13 DC 08/04/17 01:24 4 MG Ondansetron HCl (ZOFRAN ODT 4MG Home Pack) 1 homepack UD ONCE PO 08/04/17 01:15 08/04/17 01:16 DC 08/04/17 01:25 1 HOMEPACK Sodium Chloride 1,000 ml @ 999 mls/hr Q1H1M STAT IV 08/04/17 01:46 08/04/17 02:46 DC 08/04/17 02:18 999 MLS/HR Morphine Sulfate (MoRPHine SULFATE INJ) 4 mg NOW STAT IV 08/04/17 01:46 08/04/17 01:48 DC 08/04/17 02:19 4 MG ED Course Prior records/ancillary studies reviewed. Triage Nursing notes reviewed. Additional history obtained from family. The patient's history was concerning for abdominal pain. Differential diagnosis: Etiologies such as cyst, torsion, , appendicitis, diverticulitis, PUD, biliary pathology, UTI, pancreatitis, obstruction, mesenteric ischemia, aortic pathology, infections, inflammatory bowel disease, renal colic, as well as others were entertained. Physical examination findings: As above. ER treatment provided: Zofran, Toradol, morphine, IV fluids On reassessment the patient felt better. Diagnostics interpreted by me: The labs revealed no worrisome leukocytosis or electrolyte abnormality. Negative ECG. Negative urine Imaging studies: Ultrasound showed normal ovaries CT ABDOMEN & PELVIS With Contrast: No acute intra-abdominal process. Normal caliber appendix. Stool-filled right colon. Fecal-like material in the small bowel suggestive of stasis. Right renal hypodensity, probable cyst. Small fat-containing umbilical hernia. Small nonspecific mesenteric and retroperitoneal lymph nodes. Radiologist: Gladis Hamilton M.D. Exam and history seem consistent with constipation and mesenteric adenitis. Patient was not . No leukocytosis. She is well-appearing. She did not have acute on on exam. She is tolerating fluids. Patient was advised to take medicines as directed, rest, stay well hydrated and increase fluid and fiber intake. She is advised to follow-up family care a few days here and here in the ER sooner for abdominal pain, fevers, vomiting, worsening signs or symptoms or as needed. Patient ambulated out of the ER with her without difficulties.By the evaluation outlined above emergent etiologies such as appendicitis, diverticulitis, PUD, biliary pathology, UTI, pancreatitis, obstruction, mesenteric ischemia, aortic pathology, infections, inflammatory bowel disease, renal colic, as well as others were deemed relatively unlikely. The pt informed about the findings as listed above. All questions were answered and pleased with the treatment. Return instructions were outlined and the patient was discharged in stable condition. Case reviewed with my attending Referral: The patient was referred back to their primary care physician for follow-up in 2 to 3 days for a recheck of the current condition. The chart was completed utilizing [employer] voice recognition software. Grammatical errors, random word insertions, pronoun errors, and incomplete sentences are an occassional consequence of this system due to software limitations, ambient noise, and hardware issues. Any formal questions or concerns about the content, text, or information contained within the body of this dictation should be directly addressed to the physician exceptional children teacher assistant for clarification. 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 You can mix this with kori truman 50:50. Stay near the toilet all day. Increase your fluid and fiber intake. Rest and drink plenty of fluids as tolerated. Continue current medications. Avoid strenuous activities and anything that worsens your pain. Resume normal activities once your symptoms resolve. Return to the ER immediately for worsening or persistent abdominal pain, vomiting, fevers, chest pains, difficulty breathing, worsening of your condition , or as needed. Follow up with your primary physician in 2-3 days for a recheck of your current condition. Problem Qualifiers
[2017-08-04 03:00] VITALS: BP 131/77; PULSE 77; O2SAT 96
--- NOTE | 2017-08-04 07:01 | DIAGNOSTIC IMAGING REPORT ---
TRANSVAG-FEMALE PELVIS, PELVIC COMPLETE NON OB CLINICAL HISTORY: 22 years-old Female presenting with pelvic pain, last menstrual period 06/16/2017, negative test, left lower quadrant pain. TECHNIQUE: Real-time grayscale and color and spectral Doppler ultrasound imaging of the pelvis was performed first using a transabdominal probe and subsequently transvaginal for better characterization. COMPARISON: Ultrasound from 04/28/[address] performed subsequently on 08/04/2017. FINDINGS: Uterus: Normal. Retroverted retroflexed. The uterus measures 6.9 x 3.6 x 5.5 cm. Endometrial stripe measures 4 mm in thickness. Endometrium normal-appearing. Cervix normal. Right adnexa: Right ovary normal. Right ovary measures 3.1 x 2.6 x 2.5 cm. Normal color Doppler flow and arterial and venous waveforms within the ovarian parenchyma. Left adnexa: Left ovary normal. Left ovary measures 3.3 x 2.1 x 2.8 cm. Normal color Doppler flow and arterial and venous waveforms within the ovarian parenchyma. Other: No free fluid. IMPRESSION: No significant abnormality identified within the pelvis. Electronically signed by: Oswald Ramírez M.D. 08/04/2017 6:59 AM Dictated Date/Time: 08/04/2017 6:57 AM
--- NOTE | 2017-08-04 07:17 | DIAGNOSTIC IMAGING REPORT ---
ABDOMEN AND PELVIS CT WITH IV CONTRAST CT DOSE: 2011.28 mGy.cm HISTORY: Acute left lower quadrant abdominal pain with history of diverticulosis llq pain, ? divertic TECHNIQUE: Multiaxial CT images of the abdomen and pelvis were performed following the use of intravenous contrast. A dose lowering technique was utilized adhering to the principles of ALARA. COMPARISON STUDY: CT abdomen and pelvis 04/03/2016 FINDINGS: Minimal subsegmental right basilar atelectasis. No pneumatosis or pneumoperitoneum identified. Imaged inferior cardiac chambers are unremarkable. Gallstones are seen layering within the gallbladder lumen. No CT evidence of acute cholecystitis. The liver, spleen, gallbladder and adrenal glands are within normal limits. 1.5 center low attenuating lesion of the superior pole right kidney suggests renal cyst. Previous noted nonobstructing right-sided nephrolithiasis not identified on this contrast-enhanced study. No ureteral calculi or obstructive uropathy. Ureters and urinary bladder are within normal limits. Uterus and adnexa are also unremarkable. Aorta is within normal limits. No bulky adenopathy. There is no bowel obstruction or focal bowel wall thickening. No evidence of significant colonic diverticulosis or acute diverticulitis. Mild to moderate stool volume of the right hemicolon. The appendix appears normal. Soft tissues are unremarkable. Small fat filled periumbilical hernia. Bones appear intact. IMPRESSION: 1. No acute intra-abdominal or intrapelvic abnormality identified. Normal appendix. 2. No bowel wall thickening or bowel obstruction. 3. Cholelithiasis without CT evidence of acute cholecystitis. 4. Previously noted nonobstructing right-sided nephrolithiasis is no longer identified and may have passed in the interval. No evidence of obstructive uropathy. Electronically signed by: Jimmy Pineda M.D. 08/04/2017 7:16 AM Dictated Date/Time: 08/04/2017 7:12 AM
== END 2017-08-04 03:00 | disposition home or self-care (01) ==
LOC: C.EDB 21:25
DX: I88.0 Nonspecific mesenteric lymphadenitis (principal); K59.00 Constipation, unspecified

== ENCOUNTER → 2017-08-03 | Outpatient (CLI) | payer BC ==
[~2017-08-03] MED LIST changes: -MTR600X PO; -OMEP20CA9 PO; +PRLSR20 PO; +SERT25TA PO
== END | disposition home or self-care (01) ==
LOC: C.LAB1850 14:32
PROVIDERS: ATTEND Obstetrics & Gynecology
DX: R10.2 Pelvic and perineal pain (principal)

== ENCOUNTER 2017-09-01 12:51 | Emergency (ER) | payer BC ==
[~2017-09-01] VITALS: Ht 165.1 cm; Wt 132.0 kg
[~2017-09-01 12:51] MED LIST changes: +PRLSR20 PO
[2017-09-01 12:53] VITALS: TEMP 36.8; Ht 165.1 cm; Wt 132.0 kg
[2017-09-01] MEDS ORDERED: MULT-506 PO (13:11)
[2017-09-01] MEDS ORDERED: ONDANSETRON INJ 2 MG/ML 2 ML VIAL IV STA ×2 (13:13→15:53)
[2017-09-01] MEDS ORDERED: MoRPHine SULFATE 4 MG/ML 1 ML CARP\\VIAL IV STA ×3 (13:13→15:52)
[2017-09-01] MEDS ORDERED: SODIUM CHLORIDE 0.9% 1000ML 1,000 ML IV STA (13:13)
[2017-09-01 13:49] LABS: BASO % 1.4 %; EOS % 1.7 %; EOS ABS # 0.12 K/uL (0-0.5); HEMATOCRIT 40.6 % (37-47); HEMOGLOBIN 13.6 g/dL (12.0-16.0); IG# 0.03 K/uL (0.00-0.02); LYMPH % 17.2 %; LYMPH ABS # 1.24 K/uL (1.2-3.4); MEAN CELL VOLUME 81.2 fL (80-100); MEAN CORPUSCULAR HEMOGLOBIN 27.2 pg (25-34); MEAN CORPUSCULAR HGB CONC 33.5 g/dl (32-36); MEAN PLATELET VOLUME 9.6 fL (7.4-10.4); MONO % 13.8 %; MONO ABS # 0.99 K/uL (0.11-0.59); NEUT % 65.5 %; NEUT ABS # 4.71 K/uL (1.4-6.5); PLATELET COUNT 294 K/uL (130-400); RED CELL DISTRIBUTION WIDTH CV 14.9 % (11.5-14.5); RED CELL DISTRIBUTION WIDTH SD 43.6 fL (36.4-46.3); WHITE BLOOD COUNT 7.19 K/uL (4.8-10.8)
--- NOTE | 2017-09-01 13:57 | DIAGNOSTIC IMAGING REPORT ---
KUB CLINICAL HISTORY: 22 years-old Female presenting with Epigastric and back pain. TECHNIQUE: Single supine view of the abdomen was obtained. COMPARISON: CT from 08/04/2017.. FINDINGS: Nonobstructive bowel gas pattern. No gross pneumoperitoneum. Allowing for bowel gas and stool, no calcifications to suggest nephrolithiasis. Osseous structures normal. Lung bases clear. IMPRESSION: 1. No acute intra-abdominal pathology. Electronically signed by: Oswald Ramírez M.D. 09/01/2017 1:55 PM Dictated Date/Time: 09/01/2017 1:54 PM
[2017-09-01 14:04] LABS: ALBUMIN 3.9 gm/dl (3.4-5.0); CREATININE 0.83 mg/dl (0.60-1.20); POTASSIUM 3.9 mmol/L (3.5-5.1)
[2017-09-01] MEDS ORDERED: GI COCKTAIL PO STA (15:52)
--- NOTE | 2017-09-01 16:25 | DIAGNOSTIC IMAGING REPORT ---
EXAMINATION: RENAL ULTRASOUND CLINICAL HISTORY: Epigastric and back pain, hx stones COMPARISON STUDY: 04/28/2017 FINDINGS: The right kidney measures 11.9 cm. The left kidney measures 10.9 cm. There is no evidence of hydronephrosis. There are no renal masses. No bladder abnormalities are visualized. Bilateral ureteral jets were visualized. IMPRESSION : Normal renal ultrasound Electronically signed by: Adriel Angeles M.D. 09/01/2017 4:24 PM Dictated Date/Time: 09/01/2017 4:23 PM
[2017-09-01] MEDS ORDERED: ALUMINUM/MAGNESIUM SUSP 30 ML UDC ONE (16:46)
[2017-09-01] MEDS ORDERED: LIDOCAINE HCL 2% VISC SOLN 20 ML UDC ONE (16:47)
[2017-09-01] MEDS ORDERED: OPTIRAY 320 IV PRN ×2 (18:00→19:00)
--- NOTE | 2017-09-01 18:11 | DIAGNOSTIC IMAGING REPORT ---
ABD/PELVIS IV CONTRAST ONLY CT DOSE: 1857.90 mGy.cm HISTORY: Pain Epigastric abd pain, low back pain, emesis, nausea TECHNIQUE: Multiaxial CT images of the abdomen and pelvis were performed following the use of intravenous contrast. A dose lowering technique was utilized adhering to the principles of ALARA. COMPARISON STUDY: 08/04/2017 FINDINGS: Interval development of consolidative infiltrative change medial aspect left lower lobe. Liver spleen and pancreas are unremarkable. Kidneys enhance uniformly. 1.5 cm unchanging cyst upper pole right kidney. Nonobstructive bowel pattern. Normal appendix. 1.5 cm collapsing cyst left ovary with a small amount of free fluid within the cul-de-sac. IMPRESSION: 1. Consolidative infiltrate medial aspect left lower lobe. 2. Follow-up to ensure complete resolution is highly recommended. 3. 1.5 cm left ovarian cyst with a small amount of free fluid within the cul-de-sac. 4. Study is otherwise unremarkable. The above report was generated using voice recognition software. It may contain grammatical, syntax or spelling errors. Electronically signed by: Antelmo Tijerina M.D. 09/01/2017 6:10 PM Dictated Date/Time: 09/01/2017 6:03 PM
--- NOTE | 2017-09-01 19:25 | DIAGNOSTIC IMAGING REPORT ---
(CHEST FOR PE) ANGIO WITH CT DOSE: 581.43 mGy.cm HISTORY: Chest pain dyspnea TECHNIQUE: Multiaxial CT images of the chest were performed following the intravenous administration of contrast to evaluate the pulmonary arteries. Maximal intensity projection images were also obtained. A dose lowering technique was utilized adhering to the principles of ALARA. COMPARISON STUDY: None. FINDINGS: The thoracic aorta is normal in course and caliber. The pulmonary vasculature enhances uniformly. There are no significant filling defects. There is a lung parenchyma shows evidence for a rather diffuse medial left lower lobe parenchymal infiltrative process. There are several foci of consolidative change. Lungs otherwise are clear. No significant mediastinal or hilar adenopathy. No significant pericardial effusion. IMPRESSION: 1. Study is negative for pulmonary embolus. 2. Diffuse infiltrate medial aspect left lower lobe with several foci of consolidative change. 3. This study should be repeated after appropriate time frame to ensure complete resolution. The above report was generated using voice recognition software. It may contain grammatical, syntax or spelling errors. Electronically signed by: Antelmo Tijerina M.D. 09/01/2017 7:24 PM Dictated Date/Time: 09/01/2017 7:20 PM
[2017-09-01] MEDS ORDERED: AMOXICIL/CLAVU 875MG HOME PACK PO STA (19:54)
[2017-09-01] MEDS ORDERED: AMPICILLIN/SULBACTAM SOD INJ 3,000 MG in SODIUM CHLORIDE 0.9% 100ML 100 ML IV STA (19:54)
[2017-09-01] MEDS ORDERED: OXYCODONE/ACETAMINOPHEN 5-325 TAB PO STA (19:54)
[2017-09-01] MEDS ORDERED: OXYC-57 PO (19:57)
[2017-09-01] MEDS ORDERED: AMOX875T PO (19:57)
--- NOTE | 2017-09-01 19:59 | EMERGENCY ROOM VISIT NOTE ---
History First contact with patient: 13:06 Chief Complaint: BACK PAIN Stated Complaint: BACK PAIN, VOMITING History of Present Illness The patient is a 22 year old female who presents to the Emergency Room via private vehicle accompanied by mother with complaints of "back pain, vomiting". The patient states that she was seen here recently emergency department for abdominal mesenteric adenitis. She states that this feels different. She states that she abruptly woke around 3 AM today with what she describes as epigastric abdominal pain with vomiting and pain that radiates to her back. She rates the overall pain as a 7/10. It is worse with movements. It is worse with a deep breath. She denies any injury or trauma. No chest pain or excessive shortness of breath. No fever, no medical problems that she is aware of. Review of Systems A complete 10-point Review of Systems was discussed with the patient, with pertinent positives and negatives listed in the History of Present Illness. All remaining Review of Systems questions can be considered negative unless otherwise specified. Past Medical/Surgical History Medical Problems: (1) Body mass index (BMI) of 45.0-49.9 in adult (2) cervical ripening (3) Dysfunctional uterine bleeding (4) Elevated blood pressure affecting in third trimester, antepartum (5) Encounter for supervision of normal intrauterine in primigravida, antepartum (6) (7) with 35 completed weeks gestation (8) UTI (urinary tract infection) Surgical Problems: (1) Kidney stone Family History Patient reports no known family medical history. Social History Smoking Status: Never Smoker Drug Use: none Marital Status: Housing Status: lives with family Occupation Status: employed Current/Historical Medications Scheduled Amoxicillin & Pot Clavulanate (Augmentin 875-125 mg), 1 TAB PO BID Multivitamin (Multivitamin), 1 TAB PO DAILY Omeprazole (Prilosec), 20 MG PO DAILY Ondasetron Odt (Zofran Odt), 4 MG SL Q6H Sertraline (Zoloft), 100 MG PO DAILY Scheduled PRN Oxycodone/Acetaminophen 5MG/325MG (Percocet 5MG/325MG), 1 TAB PO Q6 PRN for Pain Physical Exam Vital Signs Date Time Temp Pulse Resp B/P (MAP) Pulse Ox O2 Delivery O2 Flow Rate FiO2 09/01/17 20:59 98 20 159/93 98 09/01/17 18:58 87 20 147/92 97 Room Air 09/01/17 15:38 72 18 143/92 98 Room Air 09/01/17 12:53 36.8 106 16 151/100 98 Physical Exam VITAL SIGNS - Vital signs and nursing notes were reviewed. Stable. Hypertensive and slightly tachycardic. GENERAL -22-year-old female appearing her stated age who is in no acute distress. She is nontoxic in appearance. Communicates well with provider and answers questions appropriately. SKIN - Without rashes. No meningeal or petechial rashes. HEAD - NC/AT. EYES - PERRL with EOMI bilaterally. Sclera anicteric. Palpebral conjunctiva pink and moist with no injection noted. EARS - No deformities of external structures noted on gross examination bilaterally. NOSE - Midline and without cyanosis. No epistaxis or purulent drainage noted. MOUTH/OROPHARYNX - Without perioral cyanosis. Buccal mucosa pink and moist and without leukoplakia. Tongue midline with equal elevation of palate bilaterally. No tonsillar hypertrophy, erythema, or exudates noted. Fair dentition noted. NECK - Neck with FROM. Supple to palpation. no lymphadenopathy noted. No nuchal rigidity. LUNGS - Chest wall symmetric without accessory muscle use, intercostals retractions, or central cyanosis. Normal vesicular breath sounds CTA B/L. No wheezes, rales, or rhonchi appreciated. CARDIAC - RRR with S1/S2. No murmur, rubs, or gallops appreciated. ABDOMEN - Abdominal contour normal without pulsations or visible masses. BS normoactive all four quadrants. Epigastric abdominal tenderness noted. No palpable masses, hepatosplenomegaly, or ascites noted. MUSCULOSKELETAL: No tenderness to palpation overlying the back. EXTREMITIES - No clubbing or peripheral cyanosis. No pretibial edema present. + 5/5 strength noted in UE/LE bilaterally. NEUROLOGIC - Cranial nerves II through XII grossly intact. Sensory intact to light touch throughout. PSYCH - A&O, and cooperates fully with examiner. Pt is very pleasant and interacts well with examiner. Medical Decision & Procedures ER Provider Diagnostic Interpretation: KUB CLINICAL HISTORY: 22 years-old Female presenting with Epigastric and back pain. TECHNIQUE: Single supine view of the abdomen was obtained. COMPARISON: CT from 08/04/2017.. FINDINGS: Nonobstructive bowel gas pattern. No gross pneumoperitoneum. Allowing for bowel gas and stool, no calcifications to suggest nephrolithiasis. Osseous structures normal. Lung bases clear. IMPRESSION: 1. No acute intra-abdominal pathology. Electronically signed by: Oswald Ramírez M.D. 09/01/2017 1:55 PM Dictated Date/Time: 09/01/2017 1:54 PM EXAMINATION: RENAL ULTRASOUND CLINICAL HISTORY: Epigastric and back pain, hx stones COMPARISON STUDY: 04/28/2017 FINDINGS: The right kidney measures 11.9 cm. The left kidney measures 10.9 cm. There is no evidence of hydronephrosis. There are no renal masses. No bladder abnormalities are visualized. Bilateral ureteral jets were visualized. IMPRESSION : Normal renal ultrasound Electronically signed by: Adriel Angeles M.D. 09/01/2017 4:24 PM Dictated Date/Time: 09/01/2017 4:23 PM ABD/PELVIS IV CONTRAST ONLY CT DOSE: 1857.90 mGy.cm HISTORY: Pain Epigastric abd pain, low back pain, emesis, nausea TECHNIQUE: Multiaxial CT images of the abdomen and pelvis were performed following the use of intravenous contrast. A dose lowering technique was utilized adhering to the principles of ALARA. COMPARISON STUDY: 08/04/2017 FINDINGS: Interval development of consolidative infiltrative change medial aspect left lower lobe. Liver spleen and pancreas are unremarkable. Kidneys enhance uniformly. 1.5 cm unchanging cyst upper pole right kidney. Nonobstructive bowel pattern. Normal appendix. 1.5 cm collapsing cyst left ovary with a small amount of free fluid within the cul-de-sac. IMPRESSION: 1. Consolidative infiltrate medial aspect left lower lobe. 2. Follow-up to ensure complete resolution is highly recommended. 3. 1.5 cm left ovarian cyst with a small amount of free fluid within the cul-de-sac. 4. Study is otherwise unremarkable. The above report was generated using voice recognition software. It may contain grammatical, syntax or spelling errors. Electronically signed by: Antelmo Tijerina M.D. 09/01/2017 6:10 PM Dictated Date/Time: 09/01/2017 6:03 PM (CHEST FOR PE) ANGIO WITH CT DOSE: 581.43 mGy.cm HISTORY: Chest pain dyspnea TECHNIQUE: Multiaxial CT images of the chest were performed following the intravenous administration of contrast to evaluate the pulmonary arteries. Maximal intensity projection images were also obtained. A dose lowering technique was utilized adhering to the principles of ALARA. COMPARISON STUDY: None. FINDINGS: The thoracic aorta is normal in course and caliber. The pulmonary vasculature enhances uniformly. There are no significant filling defects. There is a lung parenchyma shows evidence for a rather diffuse medial left lower lobe parenchymal infiltrative process. There are several foci of consolidative change. Lungs otherwise are clear. No significant mediastinal or hilar adenopathy. No significant pericardial effusion. IMPRESSION: 1. Study is negative for pulmonary embolus. 2. Diffuse infiltrate medial aspect left lower lobe with several foci of consolidative change. 3. This study should be repeated after appropriate time frame to ensure complete resolution. The above report was generated using voice recognition software. It may contain grammatical, syntax or spelling errors. Electronically signed by: Antelmo Tijerina M.D. 09/01/2017 7:24 PM Dictated Date/Time: 09/01/2017 7:20 PM Laboratory Results 09/01/17 13:30 Red Blood Count 5.00, Mean Corpuscular Volume 81.2, Mean Corpuscular Hemoglobin 27.2, Mean Corpuscular Hemoglobin Concent 33.5, Mean Platelet Volume 9.6, Neutrophils (%) (Auto) 65.5, Lymphocytes (%) (Auto) 17.2, Monocytes (%) (Auto) 13.8, Eosinophils (%) (Auto) 1.7, Basophils (%) (Auto) 1.4, Neutrophils # (Auto ) 4.71, Lymphocytes # (Auto) 1.24, Monocytes # (Auto) 0.99, Eosinophils # (Auto ) 0.12, Basophils # (Auto) 0.10 09/01/17 13:30 Test 09/01/17 13:20 09/01/17 13:30 09/01/17 19:44 Urine Color YELLOW Urine Appearance CLOUDY (CLEAR) Urine pH 5.0 (4.5-7.5) Urine Specific [place] 1.030 (1.000-1.030) Urine Protein NEG (NEG) Urine Glucose (UA) NEG (NEG) Urine Ketones NEG (NEG) Urine Occult Blood NEG (NEG) Urine Nitrite NEG (NEG) Urine Bilirubin NEG (NEG) Urine Urobilinogen NEG (NEG) Urine Leukocyte Esterase NEG (NEG) Urine WBC (Auto) 1-5 /hpf (0-5) Urine RBC (Auto) 0-4 /hpf (0-4) Urine Hyaline Casts (Auto) 1-5 /lpf (0-5) Urine Epithelial Cells (Auto) >30 /lpf (0-5) Urine Bacteria (Auto) NEG (NEG) Urine Crystals CALCIUM OXALATE (NONE White Blood Count 7.19 K/uL (4.8-10.8) Red Blood Count 5.00 M/uL (4.2-5.4) Hemoglobin 13.6 g/dL (12.0-16.0) Hematocrit 40.6 % (37-47) Mean Corpuscular Volume 81.2 fL (80-100) Mean Corpuscular Hemoglobin 27.2 pg (25-34) Mean Corpuscular Hemoglobin Concent 33.5 g/dl (32-36) Platelet Count 294 K/uL (130-400) Mean Platelet Volume 9.6 fL (7.4-10.4) Neutrophils (%) (Auto) 65.5 % Lymphocytes (%) (Auto) 17.2 % Monocytes (%) (Auto) 13.8 % Eosinophils (%) (Auto) 1.7 % Basophils (%) (Auto) 1.4 % Neutrophils # (Auto) 4.71 K/uL (1.4-6.5) Lymphocytes # (Auto) 1.24 K/uL (1.2-3.4) Monocytes # (Auto) 0.99 K/uL (0.11-0.59) Eosinophils # (Auto) 0.12 K/uL (0-0.5) Basophils # (Auto) 0.10 K/uL (0-0.2) RDW Standard Deviation 43.6 fL (36.4-46.3) RDW Coefficient of Variation 14.9 % (11.5-14.5) Immature Granulocyte % (Auto) 0.4 % Immature Granulocyte # (Auto) 0.03 K/uL (0.00-0.02) Anion Gap 6.0 mmol/L (3-11) Est Creatinine Clear Calc Drug Dose 143.5 ml/min Estimated GFR () 114.4 Estimated GFR (Non- 98.7 BUN/Creatinine Ratio 15.3 (10-20) Calcium Level 9.0 mg/dl (8.5-10.1) Total Bilirubin 0.2 mg/dl (0.2-1) Aspartate Amino Transf (AST/SGOT) 13 U/L (15-37) Alanine Aminotransferase (ALT/SGPT) 19 U/L (12-78) Alkaline Phosphatase 81 U/L (45-117) Total Protein 8.0 gm/dl (6.4-8.2) Albumin 3.9 gm/dl (3.4-5.0) Globulin 4.1 gm/dl (2.5-4.0) Albumin/Globulin Ratio 1.0 (0.9-2) Lipase 91 U/L (73-393) Bedside Urine Test NEG (NEG) Medications Administered Medications (Trade) Dose Ordered Sig/Jordon Route Start Time Stop Time Status Last Admin Dose Admin Morphine Sulfate (MoRPHine SULFATE INJ) 4 mg NOW STAT IV 09/01/17 13:13 09/01/17 13:17 DC 09/01/17 13:45 4 MG Ondansetron HCl (Zofran Inj) 4 mg NOW STAT IV 09/01/17 13:13 09/01/17 13:17 DC 09/01/17 13:46 4 MG Sodium Chloride 1,000 ml @ 999 mls/hr Q1H1M STAT IV 09/01/17 13:13 09/01/17 14:13 DC 09/01/17 13:46 999 MLS/HR Morphine Sulfate (MoRPHine SULFATE INJ) 4 mg NOW STAT IV 09/01/17 14:22 09/01/17 14:23 DC 09/01/17 14:34 4 MG Morphine Sulfate (MoRPHine SULFATE INJ) 4 mg NOW STAT IV 09/01/17 15:52 09/01/17 15:54 DC 09/01/17 16:52 4 MG Ondansetron HCl (Zofran Inj) 4 mg NOW STAT IV 09/01/17 15:53 09/01/17 15:54 DC 09/01/17 16:51 4 MG Al Hydroxide/Mg Hydroxide (Maalox Susp) 30 ml STK-MED ONCE .ROUTE 09/01/17 16:46 09/01/17 16:47 DC 09/01/17 16:49 30 ML Lidocaine HCl (Viscous Lidocaine 2% Soln) 20 ml STK-MED ONCE .ROUTE 09/01/17 16:47 09/01/17 16:48 DC 09/01/17 16:49 20 ML Ampicillin Sodium/ Sulbactam Sodium 3000 mg/Sodium Chloride 108 ml @ 200 mls/hr NOW STAT IV 09/01/17 19:54 09/01/17 20:26 DC 09/01/17 20:11 200 MLS/HR Amoxicillin/ Clavulanate Potassium (Augmentin 875MG Home Pack) 1 homepack UD STAT PO 09/01/17 19:54 09/01/17 19:56 DC 09/01/17 20:11 1 HOMEPACK Oxycodone/ Acetaminophen (Percocet 5/ 325MG Home Pack) 1 homepack UD STAT PO 09/01/17 20:01 09/01/17 20:03 DC 09/01/17 20:11 1 HOMEPACK Ondansetron HCl (ZOFRAN ODT 4MG Home Pack) 1 homepack UD STAT PO 09/01/17 20:13 09/01/17 20:14 DC 09/01/17 20:13 1 HOMEPACK Medical Decision Patient was seen and evaluated as above in room C 12. Review was performed of nursing notes and vital signs. After obtaining a thorough history and physical examination the above work up was performed. Review was performed of her recent / previous abdominal CT. She presents to us today with epigastric abdominal pain, nausea, vomiting and back pain. She is nontoxic on exam. There is no cough, sputum production or fever. She notes that she may have had a fever yesterday. She states she has a history of kidney stones. She states this feels similar to previous. To help avoid radiation and re-exposure via abdominal CT which was just performed, I will perform a KUB and renal ultrasound. These were performed and unfortunately did not reveal any etiology to her pain. She was given fluids, Zofran and morphine for nausea and pain. Benefit versus risk of obtaining additional imaging studies was discussed with the patient. She was informed that upon review of her blood work, there is no concerning leukocytosis, anemia, metabolic abnormality, or concerning urinary process. UPT was negative. After discussing in depth benefit versus risk of reimaging the abdomen with CT decision was made to scan because of the patient' s persistence of pain in the abdomen and back. This showed what appeared to be a left lower lobe pneumonia. The concern is that with the patient's inspiratory posterior back pain and epigastric abdominal pain this could be pulmonary embolism. She also had no cough or sputum production to otherwise suggest pneumonia. She is afebrile here. No leukocytosis. She was also tachycardic and therefore cannot rule out PE. I did discuss this with the radiologist and the decision was made after discussing in depth with the patient as well to perform a CTA of the chest with 50% dye load. This was also discussed with the attending physician. Decision was made to obtain a CTA of the chest. There was better redefinition of the lower lobe pneumonia. I suspect that it is causing diaphragmatic irritation contributing to the nausea and vomiting as well as back pain. It is important to note that upon presentation although pneumonia was considered a differential, it was not top of the list given her atypical presentation. I will treat this with an IV dose of Unasyn here, with Augmentin in the outpatient setting. She will be given a short prescription for Percocet for the pain, as I do believe that she may worsen as she is not taking large deep breaths. No red flags in PDMP. Furthermore, a discussion was had regarding the concern over addictive properties of this medication and thorough discussion was had regarding such. She will be given Zofran for nausea. She is to follow with the family doctor or return with worsening. The patient was educated upon management, had questions answered prior to discharge, and was discharged home in good condition. Case was discussed with the attending physician. In the evaluation and treatment of this patient the following differential diagnoses were entertained: IA, PE, pericarditis, costochondritis, pancreatitis , gallbladder etiology, gastritis, appendicitis, ovarian torsion, fracture, dislocation, renal calculi, pyelonephritis, among others. Impression Primary Impression: Pneumonia Departure Information Dispostion Home / Self-Care Condition GOOD Prescriptions Ondasetron Odt (ZOFRAN ODT) 4 Mg Tab 4 MG SL Q6H for Nausea, #15 TAB Prov: Jeff Vivas PA-C 09/01/17 Oxycodone/Acetaminophen 5MG/325MG (PERCOCET 5MG/325MG) Tab 1 TAB PO Q6 Y for Pain, #12 TAB For Initial Treatment Prov: Jeff Vivas PA-C 09/01/17 Amoxicillin & Pot Clavulanate (Augmentin 875-125 mg) 1 Tab Tab 1 TAB PO BID for 10 Days, #20 TAB Prov: Jeff Vivas PA-C 09/01/17 Referrals Steven Moore M.D.([facility]) (PCP) Patient Instructions My [facility] Additional Instructions You have been treated in the Emergency Department for pneumonia. You have received pain medicine in the emergency department which impairs your ability to operate a vehicle. It is illegal for you to drive after receiving these medicines. Augmentin 1 tablet every 12 hours for your pneumonia. Please do not take any Tylenol with the Percocet. Zofran 4mg under tongue every 6 hours for nausea You have been prescribed Percocet to be used for pain control. This is a narcotic medication. You cannot drive or consume alcohol while on this medicine. This medicine should only be used for pain that cannot be controlled with [id number] pain medicines. For pain control, you can use the following [id number] medicines: - Regular strength (325mg/tab) Tylenol (acetaminophen) 2 tabs every 4-6 hours as needed. Do not exceed 12 tablets in a 24 hour period. Avoid taking more than 3 grams (3000 mg) of Tylenol per day. This includes any other sources of acetaminophen you may take on a regular basis. - Regular strength (200 mg/tab) Advil (ibuprofen) 1-2 tabs every 4-6 hours as needed. Do not exceed a dose of 3200 mg per day. To minimize your discomfort, you can hug a pillow while coughing or sneezing. Additionally, you should continue to force yourself to take nice, deep breaths. Full expansion of the lungs is necessary to prevent the accumulation of fluid in the lung tissue and development of pneumonia. You should schedule a follow-up appointment in 2-3 days with your Primary Care Provider for further evaluation and treatment of your back pain and pneumonia Return to the Emergency Department if your current symptoms worsen despite treatment course outlined above, or if you develop any of the following symptoms : intractable pain despite aforementioned treatment course, development of a wet cough, bloody cough, fever, chills, or increased shortness of breath.
[2017-09-01] MEDS ORDERED: PERCOCET HOME PACK PO STA (20:01)
[2017-09-01] MEDS ORDERED: PERCOCET HOME PACK PO ONE (20:03)
[2017-09-01] MEDS ORDERED: ONDANSETRON HOME PACK 4MG OD TAB PO STA (20:13)
[2017-09-01] MEDS ORDERED: ONDA4TAB10 SL (20:16)
[2017-09-01 20:59] VITALS: BP 159/93; PULSE 98; O2SAT 98
== END 2017-09-01 21:00 | disposition home or self-care (01) ==
LOC: C.EDB 12:52 → C.EDC 21:00
DX: J18.9 Pneumonia, unspecified organism (principal)

== ENCOUNTER 2019-03-16 09:47 | Inpatient (IN) ==
--- NOTE | 2019-03-15 08:43 | Anesthesiology Consultation ---
Date of Service March 15, 2019 Assessment & Plan (1) Encounter for pre-operative examination: Chart Review Chart Review: Acceptable Risk for Surgery and Patient NOT seen in Pre Admission Testing Consults Requested none History Surgery Operation Date: 03/16/19 11:10 Proposed Procedures p Diagnostic Laparoscopic Possible Open Appendectomy - Souleymane Shetty MD Height/Weight Height: 5 ft 5 in Weight: 131.995 kg Allergies Allergy/AdvReac Type Severity Reaction Status Date / Time Bactrim Allergy Intermediate HIVES Verified 09/01/17 13:11 sulfamethoxazole Allergy Intermediate HIVES Verified 03/15/19 07:38 trimethoprim Allergy Intermediate HIVES Verified 03/15/19 07:38 morphine Allergy Mild hives at Verified 03/15/19 07:38 iv site Medications Home Medications Medication Instructions Recorded Confirmed Last Taken pantoprazole 40 mg PO QAM PRN 05/02/18 03/15/19 01/02/19 sertraline 100 mg PO HS 05/02/18 03/15/19 01/01/19 multivitamin 1 tab PO QAM 01/02/19 03/15/19 01/02/19 norethindrone acetate 1 mg-ethinyl 1 tab PO DAILY #21 tab 01/21/19 03/15/19 Unknown estradiol 20 mcg tablet ranitidine HCl 300 mg PO HS 03/10/19 03/15/19 Unknown ondansetron HCl [Zofran] 4 mg PO TID PRN 03/15/19 03/15/19 Unknown Past Medical History Medical History Ovarian cyst (Acute) Diverticulitis (Resolved) PERFORATED BOWEL - IV ANTIBIOTICS GERD (gastroesophageal reflux disease) Kidney stones PASSED ON OWN PONV (postoperative nausea and vomiting) Past Family History Family History Uncle Diabetes Mother Hypertension Kidney stones Breast cancer Past Surgical History Surgical History History of wisdom tooth extraction Previous section Status post laparoscopic procedure REMOVED uterine surface endometriotic tissue Social History Smoking Status: Never smoker Do You Dip or Chew Tobacco: No Hx Alcohol Use: Yes Alcohol type: wine alcohol intake frequency: holidays/special occasions only Hx Substance Use: No substance use type: does not use
[~2019-03-16 09:47] MED LIST changes: +ATROPINE SULFATE 0.1 MG/ML 10ML SYR IV PRN; +CIPROFLOXACIN 400 MG/200 ML BAG IV SCH; +LABETALOL HCL IV 5 MG/ML 20ML IV PRN; +LR 15ML/HR IV SCH; +MEPERIDINE HCL 25 MG/ML CARP IV PRN; +ONDANSETRON INJ 2 MG/ML 2 ML VIAL IV PRN; +PHENYLEPHRINE 100MCG/ML 5ML SYR IV PRN; -PRENTAB26 PO; -PRLSR20 PO; -SERT25TA PO; +ePHEDrine sulfate 50 MG/ML AMP IV PRN; +metroNIDAZOLE 500 MG/100 ML BAG IV SCH
[2019-03-16] MEDS ORDERED: GLYCOPYRROLATE 0.2 MG/ML VIAL ONE ×2 (09:55→12:22)
[2019-03-16] MEDS ORDERED: DEXAMETHASONE SOD INJ 4 MG/ML VIAL ONE ×2 (09:55→11:40)
[2019-03-16] MEDS ORDERED: fentaNYL citrate 100 MCG/2 ML VIAL ONE (09:55)
[2019-03-16] MEDS ORDERED: ROCURONIUM BROMIDE 10 MG/ML 5 ML VIAL ONE (09:55)
[2019-03-16] MEDS ORDERED: LIDOCAINE HCL 2% 2 ML VIAL/AMP(20MG/ML) INFIL ONE (09:55)
[2019-03-16] MEDS ORDERED: PROPOFOL IV EMULSION 10 MG/ML 20 ML VIAL IV ONE (09:55)
[2019-03-16] MEDS ORDERED: ONDANSETRON INJ 2 MG/ML 2 ML VIAL ONE (09:55)
[2019-03-16] MEDS ORDERED: MIDAZOLAM HCL 1 MG/ML 2ML VIAL ONE (09:55)
[2019-03-16] MEDS ORDERED: NEOSTIGMINE METHYLSULFATE 5 MG/5 ML SYR ONE (09:55)
--- NOTE | 2019-03-16 10:56 | History & Physical Bridge Note ---
Date of Service March 16, 2019 History & Physical Bridge Note I have examined the patient, reviewed the History & Physical and in the interval since the performance of the History & Physical I have noted the following changes of clinical significance: no changes noted
[2019-03-16] MEDS ORDERED: metroNIDAZOLE 500 MG/100 ML BAG IV STA (10:57)
[2019-03-16] MEDS ORDERED: LIDOCAINE HCL 1% 20 ML VIAL ONE (11:05)
[2019-03-16] MEDS ORDERED: BUPIVACAINE 0.5 % 5 MG/1 ML MPF 30ML VIAL ONE (11:05)
--- NOTE | 2019-03-16 12:50 | Post Operative Brief Note ---
Immediate Post Op Note v1 Date of Surgery March 16, 2019 Pre & Post Diagnosis Operation Date: 03/16/19 11:10 Pre-Op Diagnosis: right lower quadrant abdominal pain Post-Op Diagnosis: adhesions and early appendicitis I personally identified the patient: Yes Procedure Operation Date: 03/16/19 11:10 Actual Procedures p Diagnostic Laparoscopy, laparoscopic appendectomy with lysis of adhesions - Souleymane Shetty MD Surgeon Souleymane Shetty MD [employer] surgical supervisor Estimated Blood Loss 10 Findings Consistent with Post-Op Diagnosis adhesion, possible early appendicitis, right ovary cyst, size 2x2cm, minimal free fluid, bloody, Fluids 800ml Specimens appendix Drains Arteaga Catheter (placed after induction by Geovanny Busch RN without difficulty and with clear yellow urine return. placed to gravity drain, monitored by anesthesia for duration of procedure. removed intact at end of procedure. without difficulty by BIANKA Hester ) Anesthesia Type General Complications none Disposition Accompanied Patient To Recovery: Yes Disposition: Recovery Room Overlapping Procedure I was immediately available: during the entire case.
[2019-03-16] MEDS: fentaNYL citrate 100 MCG/2 ML VIAL IV PRN ×5 (13:00→13:24)
[2019-03-16] MEDS: HYDROmorphone INJ 1 MG/ML SYRINGE IV PRN ×2 (13:29→13:45)
[2019-03-16] MEDS ORDERED: METOPROLOL TARTRATE 1 MG/ML VIAL IV ONE (13:32)
[2019-03-16] MEDS ORDERED: METOPROLOL TARTRATE 1 MG/ML VIAL IV STA (13:33)
--- NOTE | 2019-03-16 13:34 | Anesthesiology Progress Note ---
Date of Service March 16, 2019 Anesthesia Post Procedure Vital Signs Vital Signs: Temp Pulse Resp BP Pulse Ox 03/16/19 10:27 36.9 C 76 18 147/90 H 97 Pain Intensity Right Abdomen: Pain Intensity: 2 Transfer of Care Handoff Completed per policy Notes Mental Status: alert / awake / arousable Patient Amnestic to Procedure: Yes Nausea / Vomiting: adequately controlled Pain: adequately controlled Airway Patency, RR, SpO2: stable & adequate BP & HR: stable & adequate Hydration State: stable & adequate Anesthetic Complications: no major complications apparent and Pt Satisfied with anesthetic care Notes: The patient is awake and comfortable. Her vitals are stable in PACU.
[2019-03-16] MEDS ORDERED: PANTOprazole 40 MG TAB PO PRN (14:36)
[2019-03-16] MEDS: HYDROmorphone INJ 0.5 MG/0.5 ML SYR IV PRN ×2 (15:37→19:51)
[2019-03-16] MEDS: OXYCODONE/ACETAMINOPHEN 5mg/325mg TAB PO PRN ×2 (17:37→21:34)
[2019-03-16] MEDS: ONDANSETRON 4 MG TAB PO PRN (19:04)
[2019-03-16] MEDS: DOCUSATE SODIUM 100 MG CAP PO SCH (20:18)
[2019-03-16] MEDS: CIPROFLOXACIN 400 MG/200 ML BAG IV SCH (20:27)
[2019-03-16] MEDS ORDERED: SERTRALINE HCL 100 MG TABLET PO SCH (21:00)
[2019-03-16] MEDS: LACTATED RINGER'S 1,000 ML IV SCH (23:03)
--- NOTE | 2019-03-16 23:03 | Operative Report ---
DATE OF OPERATION: 03/16/2019 PREOPERATIVE DIAGNOSIS: Acute abdominal pain, right lower quadrant pain. POSTOPERATIVE DIAGNOSES: Acute abdominal pain, right lower quadrant pain, possible early acute appendicitis, adhesion, right ovarian cyst size about 2 x 2 cm, minimal free pelvic fluid. OPERATION: Diagnostic laparoscopy, appendectomy, lysis of adhesion. SURGEON: Souleymane Shetty M.D. ANESTHESIA: General. ESTIMATED BLOOD LOSS: About 10 mL. FINDINGS: Possible early acute appendicitis, adhesion, right ovarian cyst size about 2 x 2 cm, minimal pelvic free fluid, bloody color. COMPLICATIONS: None. INDICATIONS FOR THE PROCEDURE: This is a 24-year-old female who presented with more than 1 week right lower quadrant pain and the patient went to the different hospital ER 2 times and all findings were negative and patient still has pain. The patient will be required to do diagnostic laparoscopy, possible appendectomy, possible open. I did talk to the patient about the benefit, the risk, alternate procedure. I indicated the risks may include but not limited such as bleeding, infection, injury to the bowel, possible need of more procedure. The patient understands. She signed informed consent. I answered all questions. DETAILS OF PROCEDURE: We brought the patient to the OR, put the patient in the supine position. The patient received SCD on bilateral legs to prevent DVT. Also, patient received 400 mg Cipro IV and 500 mg Flagyl IV for prophylactic antibiotic. The patient received general anesthesia without difficulty. Abdomen was appropriately draped in routine sterile fashion. The patient also received Arteaga catheter insertion. After the abdomen was appropriately draped in routine sterile fashion and after timeout, we injected local anesthesia by using 1% lidocaine mixed with 0.5% Marcaine just above umbilicus. Now made a small incision just above umbilicus, opened fascia and opened peritoneum under direct vision, put a Amy trocar in, connected to CO2 to create pneumoperitoneum, flow rate at 6 liters per minute. Pressure not more than 14 mmHg. Then, we put the camera in, looked around the abdomen and showed normal finding on the small bowel, large bowel. At this moment, we put another two 5-mm trocar on the left lower quadrant where I mobilized the sigmoid colon, found the patient had mild inflammation on the appendix, possible early appendicitis and also the patient had a right ovarian cyst size about 2 x 2 cm. No rupture, no twisting and there was minimal free pelvic fluid , bloody color, about 3 mL. We suctioned out and also we looked at the small bowel, follow through, looked all is pink, normal. No infection sign. Large bowel has no infection sign. At this moment, also we found the patient had some adhesion scar on the right lower quadrant. There was scar on the anterior abdominal wall band. We used the harmonic to take down the adhesion, scar band on the anterior abdominal wall. Another scar was taken down with the harmonic on the right lower quadrant. Rechecked, no active bleeding. Then, we held the appendix, used the harmonic to take down appendiceal, rechecked, no active bleeding. Then, I used a 45 mm Endo-BUFFY staple for transection the base of the appendix, rechecked the staple line intact. No active bleeding. Then, we removed the appendix through the catch bag. Then, we reinserted Amy trocar in, connected to CO2 to create pneumoperitoneum, again looked around the abdomen, no active bleeding, no injury to the bowel and also we looked at the left side, all is normal at this moment. So, we removed all trocars under direct vision. No active bleeding from the trocar sites. Pneumoperitoneum was released. I closed the umbilical incision, fascial layer by using #1 Vicryl [id number] x2, closed subcutaneous layer by using 2-0 Vicryl interrupted and closed skin by using 4-0 Vicryl continuous running, closed another two 5-mm trocar site of skin only by using 4-0 Vicryl. Then, we put the dressing on. The patient tolerated the procedure well. All instrument, needle and sponge count were correct x2 at the end of the case. The patient transferred to recovery room in stable condition. The specimen sent to pathology. After procedure, I did talk to the patient and family member about the OR finding and procedure we did, they understand. Also, patient will stay in the hospital overnight. They understand. I attest to the content of the Intraoperative Record and any orders documented therein. Any exceptions are noted below. KAREEM
[2019-03-17] MEDS: HYDROmorphone INJ 0.5 MG/0.5 ML SYR IV PRN ×2 (00:09→03:47)
[2019-03-17] MEDS: ONDANSETRON 4 MG TAB PO PRN ×2 (00:09→05:22)
[2019-03-17] MEDS: OXYCODONE/ACETAMINOPHEN 5mg/325mg TAB PO PRN ×3 (01:12→09:37)
[2019-03-17] MEDS: LACTATED RINGER'S 1,000 ML IV SCH (01:53)
[2019-03-17 05:39] LABS: Basophils # (auto) 0.01 K/uL (0-0.2); Basophils % (auto) 0.1 %; Hemoglobin 12.5 g/dL (12.0-16.0); Immature Granulocytes # (auto) 0.02 K/uL (0.00-0.02); Immature Granulocytes % (auto) 0.2 %; Lymphocytes # (auto) 1.21 K/uL (1.2-3.4); Mean Corpuscular Hemoglobin 27.9 pg (25-34); Mean Corpuscular Hgb Conc 32.9 g/dL (32-36); Mean Corpuscular Volume 84.8 fL (80-100); Mean Platelet Volume 9.9 fL (7.4-10.4); Monocytes # (auto) 0.66 K/uL (0.11-0.59); Monocytes % (auto) 5.5 %; Neutrophils # (auto) 10.18 K/uL (1.4-6.5); Neutrophils % (auto) 84.2 %; Platelet Count 328 K/uL (130-400); RDW Standard Deviation 43.2 fL (36.4-46.3); Red Blood Count 4.48 M/uL (4.2-5.4); White Blood Count 12.08 K/uL (4.8-10.8)
[2019-03-17] MEDS ORDERED: CIPROFLOXACIN 400 MG/200 ML BAG IV SCH (06:00)
--- NOTE | 2019-03-17 07:57 | Anesthesiology Progress Note ---
Date of Service March 17, 2019 Anesthesia Post Procedure Vital Signs Vital Signs: Temp Pulse Pulse Pulse Pulse Resp BP 03/17/19 07:39 36.7 C 96 H 16 03/17/19 03:34 36.7 C 96 H 18 03/16/19 23:35 36.9 C 96 H 18 03/16/19 17:46 36.7 C 98 H 18 03/16/19 16:25 36.8 C 91 H 18 03/16/19 15:22 36.8 C 91 H 18 03/16/19 14:59 91 H 16 03/16/19 14:25 37.0 C 84 16 03/16/19 13:55 36.7 C 81 16 03/16/19 13:45 83 18 03/16/19 13:38 100 H 140/86 03/16/19 13:35 101 H 14 03/16/19 13:25 105 H 15 03/16/19 13:15 103 H 15 03/16/19 13:05 112 H 16 03/16/19 12:57 36.5 C 115 H 20 03/16/19 10:27 36.9 C 76 18 BP BP Pulse Ox 03/17/19 07:39 150/78 H 96 03/17/19 03:34 124/74 96 03/16/19 23:35 144/77 H 95 03/16/19 17:46 134/79 97 03/16/19 16:25 134/78 98 03/16/19 15:22 127/72 98 03/16/19 14:59 119/74 98 03/16/19 14:25 133/78 98 03/16/19 13:55 114/84 100 03/16/19 13:45 149/84 H 100 03/16/19 13:38 03/16/19 13:35 140/86 100 03/16/19 13:25 126/97 100 03/16/19 13:15 148/99 H 100 03/16/19 13:05 132/109 H 100 03/16/19 12:57 156/86 H 99 03/16/19 10:27 147/90 H 97 Pain Intensity Right Abdomen: Pain Intensity: 2 Abdomen: Pain Intensity: 5 Notes Mental Status: alert / awake / arousable and participated in evaluation Patient Amnestic to Procedure: Yes Nausea / Vomiting: adequately controlled Pain: adequately controlled Airway Patency, RR, SpO2: stable & adequate BP & HR: stable & adequate Hydration State: stable & adequate Anesthetic Complications: no major complications apparent and Pt Satisfied with anesthetic care
[2019-03-17] MEDS: CIPROFLOXACIN 400 MG/200 ML BAG IV SCH (08:24)
[2019-03-17] MEDS: DOCUSATE SODIUM 100 MG CAP PO SCH (08:25)
[2019-03-17] MEDS ORDERED: MULTIVITAMIN TAB PO SCH (09:00)
--- NOTE | 2019-03-17 23:26 | Discharge Summary ---
ADMITTING DIAGNOSIS: Right lower quadrant abdominal pain. DISCHARGE DIAGNOSIS: Right lower quadrant pain, adhesion. OPERATION: Diagnostic laparoscopy, diagnostic appendectomy with lysis of adhesions. SURGEON: Souleymane Shetty MD DETAILS OF DISCHARGE SUMMARY: This is a 24-year-old female who presented with 1-week history of right lower quadrant pain and the patient went to other hospital ER for 2 times and still patient had the pain. The patient was required to do the diagnostic laparoscopy and we took the patient to the OR on 03/16/2019. In the OR, we found the patient had some adhesion on the right lower quadrant and anterior abdominal wall, we took down. Also mild inflammation on the appendix, possible early appendicitis. We did appendectomy. Also we found the patient had a right ovarian cyst, small, free, minimal bloody color flow on the pelvic area. The patient tolerated the procedure well. After procedure, the patient transferred to recovery room and later on transferred to regular floor. The patient is doing fine. The patient walked around and tolerated the food. No significant right lower quadrant pain, no nausea, no vomiting and passed stool, passed gas. PHYSICAL EXAMINATION: VITAL SIGNS: Temperature is 36.7, respiratory rate is 16, the heart rate 96, blood pressure is 150/78, O2 saturation 96% on room air. GENERAL: The patient is alert, awake, oriented x3. HEENT: Within normal limitation. NEUROLOGIC: Intact. NECK: No JVD. CHEST: Bilateral lung sounds clear. HEART: Normal S1, S2. No murmur. ABDOMEN: Soft and nondistended. All incisions intact and no redness, no drainage, only mild incisional tenderness. EXTREMITIES: No edema. PLAN: The patient wanted to go home today. I gave the patient postop care instruction and I will follow up the patient in 2 weeks. The patient understands.
== END 2019-03-17 11:29 | disposition home or self-care (01) | DRG 343 ==
LOC: ASU 09:47 → 3W 12:57

== ENCOUNTER 2023-01-14 16:53 | Inpatient (IN) ==
--- NOTE | 2023-01-14 17:01 | ED Triage Note ---
Date of Service January 14, 2023 History of Present Illness This patient was briefly evaluated while in triage. An abbreviated physical exam was performed. This patient is a 27-year-old Female who presents to the ED for evaluation of right sided flank pain with known right obstructing kidney stone diagnosed last week. Pain increased today at work and she notes difficulty with urinating. Reports hematuria. Notes chills, denies fevers. Recently finished Keflex. She is scheduled to see urology this Thursday. Physical Exam Constitutional: alert and oriented x3. no acute distress. nontoxic HEENT: normocephalic, atraumatic. normal conjunctiva.PERRLA. EOM's grossly intact. Respiratory: lungs are clear to auscultation without wheezes, rhonchi, or rales bilaterally. equal chest rise. normal respiratory effort, no accessory muscle use. Cardiovascular: normal heart sounds without murmur. regular rate and rhythm. GI: abdomen is soft, R lower tenderness. No palpable masses. No rebound tenderness or guarding. R CVA tenderness MSK: moves all 4 extremities spontaneously Psych:appropriate mood and affect. Initial orders for labs and / or imaging were placed and patient was placed in the waiting area until a bed is available. Please see further documentation for the full ED course.
--- NOTE | 2023-01-14 17:50 | XRay Report ---
KUB CLINICAL HISTORY: Right flank pain. Known right ureteral stone. FINDINGS: 2 AP supine abdominal radiographs are correlated with abdominal CT dated 01/06/2023. Cholecys tectomy clips are noted in the right quadrant. There is a nonobstructed abdominal bowel gas pattern. Moderate fecal retention is seen throughout the colon and largely obscures the renal shadows. No calc ifications are clearly seen projecting over either kidney. A 5 mm radiodensity projecting below the r ight transverse process of L2 likely corresponds to the patient's known ureteral stone. A pelvic calc ification is unchanged. The bony structures appear intact. IMPRESSION: 1. A 5 mm radiodensity projecting below the right transverse process of L2 likely corresponds to lupillo ent's known ureteral stone. 2. No calcifications are clearly seen projecting over either kidney. Note that the renal shadows are largely obscured by overlying bowel contents. Electronically signed by: Garrison Mar M.D. 01/14/2023 5:49 PM
[2023-01-14 18:08] LABS: Basophils # (auto) 0.11 K/uL (0-0.2); Basophils % (auto) 1.3 %; Eosinophils # (auto) 0.05 K/uL (0-0.50); Eosinophils % (auto) 0.6 %; Hematocrit (blood only) 39.2 % (37.0-47.0); Immature Granulocytes # (auto) 0.02 K/uL (0.01-0.20); Immature Granulocytes % (auto) 0.2 %; Lymphocytes # (auto) 2.18 K/uL (1.2-3.4); Lymphocytes % (auto) 26.6 %; Mean Corpuscular Hemoglobin 29.1 pg (25.0-34.0); Mean Corpuscular Hgb Conc 33.2 g/dL (32.0-36.0); Mean Corpuscular Volume 87.7 fL (80.0-100.0); Mean Platelet Volume 9.8 fL (9.4-12.4); Monocytes # (auto) 0.48 K/uL (0.11-0.59); Monocytes % (auto) 5.9 %; Neutrophils # (auto) 5.35 K/uL (1.40-6.50); Neutrophils % (auto) 65.4 %; Platelet Count 379 K/uL (130-400); RDW Coefficient of Variation 13.6 % (11.5-14.5); RDW Standard Deviation 43.8 fL (36.4-46.3); Red Blood Count 4.47 M/uL (4.20-5.40); White Blood Count 8.19 K/ul (4.8-10.8)
[2023-01-14 18:25] LABS: Albumin Globulin Ratio 1.6 (0.9-2); Albumin Level 4.4 gm/dl (3.4-5.0); Bilirubin,Total 0.4 mg/dl (0.2-1.0); Calcium 9.3 mg/dl (8.6-10.3); Creatinine Clr Calc Pharmacy 140.2 ml/min; Est GFR (African American) 136.3 ml/min; Est GFR (Non-African American) 117.6 ml/min; Globulin 2.8 gm/dl (2.5-4.0); Total Protein 7.2 gm/dl (6.0-8.3)
[2023-01-14] MEDS ORDERED: SODIUM CHLORIDE 0.9% 1000ML 1,000 ML IV ONE (19:49)
[2023-01-14] MEDS ORDERED: ACETAMINOPHEN 1,000 MG/100 ML VIAL IV STA (19:50)
[2023-01-14] MEDS ORDERED: ONDANSETRON INJ 2 MG/ML 2 ML VIAL IV STA (19:50)
[2023-01-14] MEDS ORDERED: fentaNYL citrate PF 100 MCG/2 ML VIAL IV STA ×2 (19:50→21:23)
--- NOTE | 2023-01-14 19:56 | Emergency Department Note ---
History of Present Illness General Chief complaint: Kidney Stone Stated complaint: RT SIDE KIDNEY STONE, CAN'T URINATE Time Seen by Provider: 01/14/23 19:13 History of Present Illness Maximum Pain Intensity: 8 27-year-old female with past medical history significant for recurrent kidney s tones, hyperparathyroidism who presents to the emergency department for right kidney stone. Patient was seen and evaluated in this ED on 01/06/2023 for right flank pain and was diagnosed with a 4 mm obstructing right proximal ureter kidney stone with mild hydronephrosis. Her pain was adequately controlled at that time and was discharged home with outpatient urology follow-up. She is scheduled to see them on Thursday. She was also sent home on Keflex x 7 days and finished yesterday for concurrent UTI. Patient states her right flank pain became acutely worse this afternoon while at work. She also notes bladder pressure and feels like it is more difficult for her to urinate. She notes hematuria. She also reports chills but has not checked her temperature. She is nauseous, no vomiting. She denies chest pain or shortness of breath. She took Tylenol and ibuprofen prior to arrival without relief in symptoms. Home Medications Medication Instructions Recorded Confirmed Type sertraline 100 mg tablet 150 mg PO QAM 03/03/21 01/14/23 History omeprazole 20 mg capsule,delayed 20 mg PO QAM 11/08/21 01/14/23 History release buspirone 10 mg tablet 10 mg PO AMHS 01/06/23 01/14/23 History cyclobenzaprine 10 mg tablet 10 mg PO TID PRN Pain 01/06/23 01/14/23 History tamsulosin 0.4 mg capsule (Flomax) 0.4 mg PO QAM 01/06/23 01/14/23 History ferrous sulfate 325 mg (65 mg 325 mg PO AMHS 01/14/23 01/14/23 History iron) tablet fftelldk-cenllizs-foav 45 mg-folic 1 cap PO DAILY 01/14/23 01/14/23 History acid 800 mcg-vit K 120 mcg capsule (Bariatric Multivitamins) ondansetron 4 mg disintegrating 4 mg translingual Q8 PRN Nausea 01/14/23 01/14/23 History tablet Allergies Allergy/AdvReac Type Severity Reaction Status Date / Time sulfamethoxazole Allergy Intermediate HIVES Verified 01/06/23 16:58 trimethoprim Allergy Intermediate HIVES Verified 01/06/23 16:58 morphine Allergy Mild Hives Verified 01/06/23 16:58 Past Med/Surg History Medical History Depression Diverticulitis Hx of perforated bowel >10yrs ago -s/p IV antibiotics GERD (gastroesophageal reflux disease) Kidney stones Surgical History History of appendectomy 03/16/19: Grade 2 view, Veloz 2, ETT 7.5 atraumatic x 1. History of cholecystectomy 06/10/19: Grade 1 view, MAC 3, ETT 7.5 atraumatic x 1. History of colonoscopy History of Otilia-en-[place] gastric [place] 6 [place] [facility] [place] of wisdom tooth extraction Hx of cystoscopy w/ stent-04/2022 [facility] PONV (postoperative nausea and vomiting) Previous section Status post laparoscopic procedure REMOVED uterine surface endometriotic tissue Family History Uncle Diabetes Mother Kidney stones Breast cancer Hx of cholecystectomy Hypertension Father Hx of cholecystectomy Other No family history of adverse response to anesthesia Social History Smoking Status: Never smoker Second Hand Exposure: No; Do You Dip or Chew Tobacco: No; Hx Alcohol Use: No Hx Substance Use: No Preferred Language: Portuguese Communication Ability: Effective News Broadcaster Required: No Beliefs That Will Affect Care: None marital status: Current Living Situation: Spouse Current Living Situation Comment: lives with and 1 kid Feels Safe at Home: Yes Assistive Devices: Glasses Physical Exam Vital Signs Vital Signs - 24 hr 01/14/23 16:58 01/14/23 19:26 01/14/23 19:34 Temperature 36.5 C Temperature Source Temporal Artery Scan Pulse Rate 99 H 68 Pulse Rate [Apical] 67 Pulse Rhythm [Apical] Regular Respiratory Rate 20 18 Respiratory Effort / Characteristics Non-Labored Spontaneous Respiratory Depth Normal Respiratory Pattern Blood Pressure 140/101 H Blood Pressure [Right Arm] 123/77 Blood Pressure Mean 114 Blood Pressure Mean [Right Arm] 92 Blood Pressure Position [Right Arm] Lying Pulse Oximetry 97 100 Oxygen Delivery Method Room Air Room Air Sepsis Recent Fever Within 48 Hours No Sepsis New/Unexplained Change in Mental Status N/A Sepsis Action Taken by Nursing No Action Required 01/14/23 21:57 01/14/23 23:31 Temperature Temperature Source Pulse Rate 94 H Pulse Rate [Apical] 76 Pulse Rhythm [Apical] Regular Respiratory Rate 18 20 Respiratory Effort / Characteristics Non-Labored Spontaneous Respiratory Depth Normal Respiratory Pattern Regular Blood Pressure 126/86 Blood Pressure [Right Arm] 128/85 Blood Pressure Mean 99 Blood Pressure Mean [Right Arm] 99 Blood Pressure Position [Right Arm] Lying Pulse Oximetry 100 98 Oxygen Delivery Method Room Air Room Air Sepsis Recent Fever Within 48 Hours Sepsis New/Unexplained Change in Mental Status Sepsis Action Taken by Nursing Constitutional: alert and oriented x3. no acute distress. nontoxic HEENT: normocephalic, atraumatic. normal conjunctiva.PERRLA. EOM's grossly intact. TMs pearly espinal without effusion. Pharynx pink without exudate. Tonsils nonenlarged. Mucus membranes moist Neck: neck is supple, nontender. Respiratory: lungs are clear to auscultation without wheezes, rhonchi, or rales bilaterally. equal chest rise. normal respiratory effort, no accessory muscle use. Cardiovascular: normal heart sounds without murmur. regular rate and rhythm. GI: abdomen is soft, nontender./nondistended. No palpable masses. No rebound tenderness or guarding. bilateral CVA tenderness MSK: Moves all 4 extremities spontaneously Psych:appropriate mood and affect. Course Administered Medications Hydromorphone HCl (Hydromorphone Inj 1 Mg/Ml Syringe) 1 mg IV Q4H PRN PRN Reason: Pain Stop: 01/28/23 22:31 Last Admin: 01/14/23 23:26 Dose: 1 mg Documented By: REY Dextrose/Lactated Ringer's (D5w And Lactated Ringers) 1,000 mls @ 100 mls/hr IV .Q10H ONE Stop: 01/15/23 08:31 Last Admin: 01/14/23 23:26 Dose: 100 mls/hr Documented By: REY Discontinued Medications Cephalexin HCl (Cephalexin 500 Mg Cap) 500 mg PO NOW STA; Protocol Stop: 01/14/23 22:03 Last Admin: 01/14/23 22:30 Dose: 500 mg Documented By: JEFF Fentanyl Citrate (Fentanyl Citrate Pf 100 Mcg/2 Ml Vial) 50 mcg IV NOW STA Stop: 01/14/23 19:51 Last Admin: 01/14/23 20:11 Dose: 50 mcg Documented By: JEFF Fentanyl Citrate (Fentanyl Citrate Pf 100 Mcg/2 Ml Vial) 50 mcg IV NOW STA Stop: 01/14/23 21:24 Last Admin: 01/14/23 21:34 Dose: 50 mcg Documented By: JEFF Sodium Chloride (Nss 1000ml) 1,000 mls @ 999 mls/hr IV .Q1H1M ONE Stop: 01/14/23 20:49 Last Infusion: 01/14/23 21:19 Dose: 0 mls/hr Documented By: Admin: 01/14/23 20:10 Dose: 999 mls/hr Documented By: JEFF Acetaminophen (Ofirmev) 1,000 mg in 100 mls @ 400 mls/hr IV NOW STA Stop: 01/14/23 20:04 Last Infusion: 01/14/23 21:19 Dose: 0 mls/hr Documented By: Admin: 01/14/23 20:09 Dose: 400 mls/hr Documented By: JEFF Ondansetron HCl (Ondansetron Inj 2 Mg/Ml 2 Ml Vial) 4 mg IV NOW STA Stop: 01/14/23 19:51 Last Admin: 01/14/23 20:11 Dose: 4 mg Documented By: JEFF Medical Decision Making Differential Diagnosis Nephrolithiasis, pyelonephritis, UTI, appendicitis, ovarian cyst, ovarian torsion, ectopic , TOA, PID, infections, diverticulitis, mesenteric ischemia, aortic pathology, inflammatory bowel disease, PUD, pancreatitis, biliary pathology, hernia, volvulus, constipation, as well as other pathologies. Laboratory Data Attestation: I reviewed the patient's lab results. 01/14/23 17:10 01/14/23 17:10 Lab Results 01/14/23 01/14/23 01/14/23 Range/Units 17:10 17:10 17:10 WBC 8.19 (4.8-10.8) K/ul RBC 4.47 (4.20-5.40) M/uL Hgb 13.0 (12.0-16.0) g/dl Hct 39.2 (37.0-47.0) % MCV 87.7 (80.0-100.0) fL MCH 29.1 (25.0-34.0) pg MCHC 33.2 (32.0-36.0) g/dL RDW Std Deviation 43.8 (36.4-46.3) fL RDW Coeff of Coral 13.6 (11.5-14.5) % Plt Count 379 (130-400) K/uL MPV 9.8 (9.4-12.4) fL Immature Gran % (Auto) 0.2 % Neut % (Auto) 65.4 % Lymph % (Auto) 26.6 % [place] % (Auto) 5.9 % Eos % (Auto) 0.6 % Baso % (Auto) 1.3 % Neut # (Auto) 5.35 (1.40-6.50) K/uL Lymph # (Auto) 2.18 (1.2-3.4) K/uL [place]ether # (Auto) 0.48 (0.11-0.59) K/uL Eos # (Auto) 0.05 (0-0.50) K/uL Baso # (Auto) 0.11 (0-0.2) K/uL Immature Gran # (Auto) 0.02 (0.01-0.20) K/uL Sodium 139 (136-145) mmol/L Potassium 4.0 (3.5-5.1) mmol/L Chloride 105 (98-107) mmol/L Carbon Dioxide 26 (21-32) mmol/L Anion Gap 8 (3-11) BUN 9 (6-23) mg/dl Creatinine 0.69 (0.6-1.2) mg/dl Est Cr Clr Drug Dosing 140.2 ml/min Est GFR ( Amer) 136.3 ml/min Est GFR (Non-Af Amer) 117.6 ml/min BUN/Creatinine Ratio 13.0 (10-20) Glucose 97 (70-99(Fasting)) mg/dl Lactate (0.4-2.0) mmol/L Calcium 9.3 (8.6-10.3) mg/dl Total Bilirubin 0.4 (0.2-1.0) mg/dl AST 15 (13-39) U/L ALT 9 (7-52) U/L Alkaline Phosphatase 52 (34-104) U/L Total Protein 7.2 (6.0-8.3) gm/dl Albumin 4.4 (3.4-5.0) gm/dl Globulin 2.8 (2.5-4.0) gm/dl Albumin/Globulin Ratio 1.6 (0.9-2) Lipase 46 (11-82) U/L Procalcitonin < 0.05 (0-0.5) ng/ml Urine Color Urine Appearance (Clear) Urine pH (4.5-7.5) Ur Specific [place] (1.000-1.030) Urine Protein (Negative) Urine Glucose (UA) (Negative) Urine Ketones (Negative) Urine Blood (Negative) Urine Nitrite (Negative) Urine Bilirubin (Negative) Urine Urobilinogen (Negative) Ur Leukocyte Esterase (Negative) Urine WBC (Auto) (0-5) /hpf Urine RBC (Auto) (0-4) /hpf U Hyaline Cast (Auto) (0-5) /lpf U Epithel Cells (Auto) (0-5) /lpf Urine Bacteria (Auto) (Negative) 01/14/23 01/14/23 Range/Units 19:22 19:27 WBC (4.8-10.8) K/ul RBC (4.20-5.40) M/uL Hgb (12.0-16.0) g/dl Hct (37.0-47.0) % MCV (80.0-100.0) fL MCH (25.0-34.0) pg MCHC (32.0-36.0) g/dL RDW Std Deviation (36.4-46.3) fL RDW Coeff of Coral (11.5-14.5) % Plt Count (130-400) K/uL MPV (9.4-12.4) fL Immature Gran % (Auto) % Neut % (Auto) % Lymph % (Auto) % [place] % (Auto) % Eos % (Auto) % Baso % (Auto) % Neut # (Auto) (1.40-6.50) K/uL Lymph # (Auto) (1.2-3.4) K/uL [place]ether # (Auto) (0.11-0.59) K/uL Eos # (Auto) (0-0.50) K/uL Baso # (Auto) (0-0.2) K/uL Immature Gran # (Auto) (0.01-0.20) K/uL Sodium (136-145) mmol/L Potassium (3.5-5.1) mmol/L Chloride (98-107) mmol/L Carbon Dioxide (21-32) mmol/L Anion Gap (3-11) BUN (6-23) mg/dl Creatinine (0.6-1.2) mg/dl Est Cr Clr Drug Dosing ml/min Est GFR ( Amer) ml/min Est GFR (Non-Af Amer) ml/min BUN/Creatinine Ratio (10-20) Glucose (70-99(Fasting)) mg/dl Lactate 0.9 (0.4-2.0) mmol/L Calcium (8.6-10.3) mg/dl Total Bilirubin (0.2-1.0) mg/dl AST (13-39) U/L ALT (7-52) U/L Alkaline Phosphatase (34-104) U/L Total Protein (6.0-8.3) gm/dl Albumin (3.4-5.0) gm/dl Globulin (2.5-4.0) gm/dl Albumin/Globulin Ratio (0.9-2) Lipase (11-82) U/L Procalcitonin (0-0.5) ng/ml Urine Color Yellow Urine Appearance Cloudy A (Clear) Urine pH 6.0 (4.5-7.5) Ur Specific [place] 1.016 (1.000-1.030) Urine Protein Negative (Negative) Urine Glucose (UA) Negative (Negative) Urine Ketones Negative (Negative) Urine Blood 1+ H (Negative) Urine Nitrite Negative (Negative) Urine Bilirubin Negative (Negative) Urine Urobilinogen Negative (Negative) Ur Leukocyte Esterase Trace H (Negative) Urine WBC (Auto) 1-5 (0-5) /hpf Urine RBC (Auto) 5-10 H (0-4) /hpf U Hyaline Cast (Auto) 1-5 (0-5) /lpf U Epithel Cells (Auto) >30 H (0-5) /lpf Urine Bacteria (Auto) Negative (Negative) Imaging Data Radiologist's Impression: KUB X-Ray 01/14/23 17:01 KUB CLINICAL HISTORY: Right flank pain. Known right ureteral stone. FINDINGS: 2 AP supine abdominal radiographs are correlated with abdominal CT dated 01/06/2023. Cholecystectomy clips are noted in the right quadrant. There is a nonobstructed abdominal bowel gas pattern. Moderate fecal retention is seen throughout the colon and largely obscures the renal shadows. No calcifications are clearly seen projecting over either kidney. A 5 mm radiodensity projecting below the right transverse process of L2 likely corresponds to the patient's known ureteral stone. A pelvic calcification is unchanged. The bony structures appear intact. IMPRESSION: 1. A 5 mm radiodensity projecting below the right transverse process of L2 likely corresponds to patient's known ureteral stone. 2. No calcifications are clearly seen projecting over either kidney. Note that the renal shadows are largely obscured by overlying bowel contents. Electronically signed by: Garrison Mar M.D. 01/14/2023 5:49 PM Renal Ultrasound 01/14/23 17:01 Exam(s): US RENAL EXAM: US Retroperitoneal Limited, Renal CLINICAL HISTORY: Reason for exam: R kidney stone. TECHNIQUE: Real-time limited ultrasound of the retroperitoneum with image documentation. COMPARISON: October 23, 2022 FINDINGS: Right kidney: The right kidney measures 11.7 cm right normal renal cortical thickness and echogenicity. No hydronephrosis. Simple cyst in the upper pole the right kidney measures 1.5 x 141.6 cm. No follow-up is required. No stones. Left kidney: The left kidney measures 10.8 cm with normal renal cortical thickness and echogenicity. No hydronephrosis. Possible nonobstructive 4 mm calculus in the lower pole. Bladder: The urinary bladder is partially distended and unremarkable. Ureteral jets are not visible. IMPRESSION: No hydronephrosis involving either kidney. Possible nonobstructive 4 mm calcific calculus in the lower pole on the left. Electronically signed by: Sam Serrano MD 01/14/23 22:28 PM MDM Narrative 27-year-old female with known right kidney stone presents to the emergency department for worsening right flank pain. Reviewed pertinent visits and past medical history performed. Vital signs in ED stable, afebrile. Patient was seen and evaluated on 01/06/2023 for right flank pain and diagnosed with a 4 mm obstructing right proximal ureteral kidney stone with mild hydronephrosis. She reports worsening pain today as well as bladder fullness. She did finish a course of Keflex yesterday for concurrent UTI. IV access was established and labs were obtained. CBC without leukocytosis or acute anemia. CMP without significant electrolyte abnormalities. Renal function within normal limits. LFTs and lipase unremarkable. Lactate and procalcitonin normal. Blood culture sent. Urinalysis demonstrates blood as well as trace leukocytes, appears improved compared to 01/06. KUB performed and demonstrates 5 mm radiodensity at the level of the right L2 transverse process likely consistent with a ureteral stone. Renal ultrasound without evidence of hydronephrosis. On exam, patient is nontoxic-appearing in no acute distress. She is tender to palpation in the bilateral lower quadrants as well as positive bilateral CVA tenderness. She was medicated with IV Tylenol, fentanyl as well as 1 L of fluids. Upon reevaluation, patient remained stable and no new concerns. She did require additional pain control with another dose of fentanyl. Given she is attempted outpatient management and has worsening pain, I do feel admission to the hospital for pain control and urology evaluation is reasonable. Patient is interested in admission to hospital and would like to discuss surgical options for her kidney stone. She notes history of stenting. Case was discussed with urology, Dr. Mack who will see patient in consultation tomorrow for further evaluation of her kidney stone. He did recommend hydration as well as extending Keflex antibiotic to cover for infection. A dose was ordered in ED. Case was then discussed with hospitalist, Dr. Ching, who graciously accepted patient to his service for further medical management. She was admitted in stable condition. Impression & Plan Nephrolithiasis, Intractable pain Discharge Plan Visit Data Chief Complaint: Kidney Stone Stated Complaint: RT SIDE KIDNEY STONE, CAN'T URINATE ED Provider: Cole Mariscal ED Midlevel Provider: Alee Addison Discharge Problem: Nephrolithiasis, Intractable pain Patient Disposition: Admitted As Inpatient Forms Stand Alone Forms: My [facility] [employer] Prescriptions Prescriptions: No Action sertraline 100 mg tablet 150 mg PO QAM Rx Instructions: 1 & 1/2 tablet dose cyclobenzaprine 10 mg tablet 10 mg PO TID PRN (Reason: Pain) buspirone 10 mg tablet 10 mg PO AMHS tamsulosin [Flomax] 0.4 mg capsule 0.4 mg PO QAM omeprazole 20 mg capsule,delayed release(DR/EC) 20 mg PO QAM ondansetron 4 mg tablet,disintegrating 4 mg translingual Q8 PRN (Reason: Nausea) ferrous sulfate 325 mg (65 mg iron) Tablet 325 mg PO AMHS Bariatric Multivitamins 45 mg iron- 800 mcg-120 mcg Capsule 1 cap PO DAILY Referrals Referrals: Dimas Doty, [Primary Care Provider] -
[2023-01-14 19:58] LABS: Appearance Urine Cloudy (Clear); Bacteria Urine Automated Negative (Negative); Bilirubin Urine Negative (Negative); Blood Urine 1+ (Negative); Color Urine Yellow; Epithelial Cell Urine Auto >30 /lpf (0-5); Glucose Urine UA Negative (Negative); Ketones Urine Negative (Negative); Leukocyte Esterase Urine Trace (Negative); Nitrite Urine Negative (Negative); Protein Urine Negative (Negative); Specific Gravity Urine 1.016 (1.000-1.030); Urobilinogen Urine Negative (Negative)
[2023-01-14] MEDS ORDERED: cephALEXin 500 MG CAP PO STA (22:02)
--- NOTE | 2023-01-14 22:29 | Ultrasound Report ---
Exam(s): US RENAL EXAM: US Retroperitoneal Limited, Renal CLINICAL HISTORY: Reason for exam: R kidney stone. TECHNIQUE: Real-time limited ultrasound of the retroperitoneum with image documentation. COMPARISON: October 23, 2022 FINDINGS: Right kidney: The right kidney measures 11.7 cm right normal renal cortical thickness and echogenicity. No hydronephrosis. Simple cyst in the upper pole the right kidney measures 1.5 x 141.6 cm. No follow-up is required. No stones. Left kidney: The left kidney measures 10.8 cm with normal renal cortical thickness and echogenicity. No hydronephrosis. Possible nonobstructive 4 mm calculus in the lower pole. Bladder: The urinary bladder is partially distended and unremarkable. Ureteral jets are not visible. IMPRESSION: No hydronephrosis involving either kidney. Possible nonobstructive 4 mm calcific calculus in the lower pole on the left. Electronically signed by: Sam Serrano MD 01/14/23 22:28 PM
--- NOTE | 2023-01-14 22:29 | History & Physical Report ---
Date of Service January 14, 2023 Assessment & Plan (1) Renal colic on right side: Plan: Recurrent urolithiasis/obstructive uropathy history secondary hyperparathyroidism as per records Failed outpatient treatment hx GERD, stable on regimen history of gastric bypass hx NAFLD prediabetes, outpatient hemoglobin A1c of 5.3 this year mood disorder, at baseline GMF Analgesia strain urine Urology consult Re: Renal colic (ER provider already in touch with Dr. Mack who recommends extension of Keflex course.) N.p.o. until patient seen by urology in a.m. in anticipation of procedure DVT prophylaxis. SCDs Full code Text document was generated using [employer] voice recognition software. It may contain grammatical or spelling errors. Kindly contact undersigned for clarification of any documentation item in question. History of Present Illness Chief Complaint: Kidney stone pain Primary Care Provider: Dimas Doty, History obtained from patient and records. Medical history significant for recurrent urolithiasis, GERD, secondary hyperparathyroidism as per records, history of gastric bypass, NAFLD, prediabetes, mood disorder. Last confinement 2018 under General Surgery service for early appendicitis status post surgery. 9 days ago, patient noted right flank pain reminiscent of kidney stone attack. Patient consulted [facility] ER. CT abdomen and pelvis showed 4 mm obstructing calculus right proximal ureter causing mild right hydronephrosis. UA showed WBC esterase. Patient discharged home on oxycodone, Flomax and Keflex course. Symptoms improved at home without passage of stone as per patient. Recurrent right flank pain with hematuria symptoms noted 2 days ago. Patient consulted [facility] ER yesterday. CT abdomen pelvis showed obstructing distal right ureteral calculus measuring 5 mm with mild right hydroureteronephrosis. Patient discharged home. Patient returned to [facility] ER today for worsening symptoms. 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 Allergies Allergy/AdvReac Type Severity Reaction Status Date / Time sulfamethoxazole Allergy Intermediate HIVES Verified 01/06/23 16:58 trimethoprim Allergy Intermediate HIVES Verified 01/06/23 16:58 morphine Allergy Mild Hives Verified 01/06/23 16:58 Home Medications Medication Instructions Recorded Confirmed Type sertraline 100 mg tablet 150 mg PO QAM 03/03/21 01/14/23 History omeprazole 20 mg capsule,delayed 20 mg PO QAM 11/08/21 01/14/23 History release buspirone 10 mg tablet 10 mg PO AMHS 01/06/23 01/14/23 History cyclobenzaprine 10 mg tablet 10 mg PO TID PRN Pain 01/06/23 01/14/23 History tamsulosin 0.4 mg capsule (Flomax) 0.4 mg PO QAM 01/06/23 01/14/23 History ferrous sulfate 325 mg (65 mg 325 mg PO AMHS 01/14/23 01/14/23 History iron) tablet evgtnrdr-[id number] 45 mg-folic 1 cap PO DAILY 01/14/23 01/14/23 History acid 800 mcg-vit K 120 mcg capsule (Bariatric Multivitamins) ondansetron 4 mg disintegrating 4 mg translingual Q8 PRN Nausea 01/14/23 01/14/23 History tablet Past Med/Surg History Medical History Depression Diverticulitis Hx of perforated bowel >10yrs ago -s/p IV antibiotics GERD (gastroesophageal reflux disease) Kidney stones Surgical History History of appendectomy 03/16/19: Grade 2 view, Veloz 2, ETT 7.5 atraumatic x 1. History of cholecystectomy 06/10/19: Grade 1 view, MAC 3, ETT 7.5 atraumatic x 1. History of colonoscopy History of Otilia-en-Y gastric bypass 6 months ago @ [facility] [place] History of wisdom tooth extraction Hx of cystoscopy w/ stent-04/2022 [facility] PONV (postoperative nausea and vomiting) Previous section Status post laparoscopic procedure REMOVED uterine surface endometriotic tissue Family History Uncle Diabetes Mother Kidney stones Breast cancer Hx of cholecystectomy Hypertension Father Hx of cholecystectomy Other No family history of adverse response to anesthesia Social History Smoking Status: Never smoker Second Hand Exposure: No; Do You Dip or Chew Tobacco: No; Hx Alcohol Use: Yes Alcohol type: wine Hx Substance Use: No Preferred Language: Welsh Communication Ability: Effective 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 Beliefs That Will Affect Care: None marital status: Current Living Situation: Parent Current Living Situation Comment: lives with and 1 kid Other Information That Helps Us Care for You: No Feels Safe at Home: Yes Safety Concerns: Feels Safe At This Time Assistive Devices: None Review of Systems Review of Systems: As per HPI, all other systems reviewed and negative Physical Exam Physical Exam: GENERAL: Comfortable, pleasant, obese, no respiratory distress SKIN: Normal color, warm HEENT: [place] palpebral conjunctivae, no ptosis, dry buccal mucosa NECK : Supple, no tenderness CHEST : CTA, no tenderness HEART : RRR, no obvious murmurs ABDOMEN: Some distention, minimal right-sided abdominal tenderness EXTREMITIES : Minimal LE swelling, no LE tenderness, no other conspicuous deformities noted NEUROLOGIC : Coherent, no facial asymmetry, no other gross focality Results & Data Results & Data Vital Signs (Past 12 Hours) Vital Signs Temp Pulse Pulse Resp BP BP Pulse Ox 01/14/23 21:57 76 18 128/85 100 01/14/23 19:34 67 18 123/77 100 01/14/23 19:26 68 01/14/23 16:58 36.5 C 99 H 20 140/101 H 97 O2 Del Method 01/14/23 21:57 Room Air 01/14/23 19:34 Room Air 01/14/23 19:26 01/14/23 16:58 Room Air Laboratory Results Laboratory Results WBC 8.19 K/ul (4.8-10.8) 01/14/23 17:10 RBC 4.47 M/uL (4.20-5.40) 01/14/23 17:10 Hgb 13.0 g/dl (12.0-16.0) 01/14/23 17:10 Hct 39.2 % (37.0-47.0) 01/14/23 17:10 MCV 87.7 fL (80.0-100.0) 01/14/23 17:10 MCH 29.1 pg (25.0-34.0) 01/14/23 17:10 MCHC 33.2 g/dL (32.0-36.0) 01/14/23 17:10 RDW Std Deviation 43.8 fL (36.4-46.3) 01/14/23 17:10 RDW Coeff of Coral 13.6 % (11.5-14.5) 01/14/23 17:10 Plt Count 379 K/uL (130-400) 01/14/23 17:10 MPV 9.8 fL (9.4-12.4) 01/14/23 17:10 Immature Gran % (Auto) 0.2 % 01/14/23 17:10 Neut % (Auto) 65.4 % 01/14/23 17:10 Lymph % (Auto) 26.6 % 01/14/23 17:10 Pepin % (Auto) 5.9 % 01/14/23 17:10 Eos % (Auto) 0.6 % 01/14/23 17:10 Baso % (Auto) 1.3 % 01/14/23 17:10 Neut # (Auto) 5.35 K/uL (1.40-6.50) 01/14/23 17:10 Lymph # (Auto) 2.18 K/uL (1.2-3.4) 01/14/23 17:10 Pepin # (Auto) 0.48 K/uL (0.11-0.59) 01/14/23 17:10 Eos # (Auto) 0.05 K/uL (0-0.50) 01/14/23 17:10 Baso # (Auto) 0.11 K/uL (0-0.2) 01/14/23 17:10 Immature Gran # (Auto) 0.02 K/uL (0.01-0.20) 01/14/23 17:10 Sodium 139 mmol/L (136-145) 01/14/23 17:10 Potassium 4.0 mmol/L (3.5-5.1) 01/14/23 17:10 Chloride 105 mmol/L (98-107) 01/14/23 17:10 Carbon Dioxide 26 mmol/L (21-32) 01/14/23 17:10 Anion Gap 8 (3-11) 01/14/23 17:10 BUN 9 mg/dl (6-23) 01/14/23 17:10 Creatinine 0.69 mg/dl (0.6-1.2) 01/14/23 17:10 Est Cr Clr Drug Dosing 140.2 ml/min 01/14/23 17:10 Est GFR ( Amer) 136.3 ml/min 01/14/23 17:10 Est GFR (Non-Af Amer) 117.6 ml/min 01/14/23 17:10 BUN/Creatinine Ratio 13.0 (10-20) 01/14/23 17:10 Glucose 97 mg/dl (70-99(Fasting)) 01/14/23 17:10 Lactate 0.9 mmol/L (0.4-2.0) 01/14/23 19:22 Calcium 9.3 mg/dl (8.6-10.3) 01/14/23 17:10 Total Bilirubin 0.4 mg/dl (0.2-1.0) 01/14/23 17:10 AST 15 U/L (13-39) 01/14/23 17:10 ALT 9 U/L (7-52) 01/14/23 17:10 Alkaline Phosphatase 52 U/L (34-104) 01/14/23 17:10 Total Protein 7.2 gm/dl (6.0-8.3) 01/14/23 17:10 Albumin 4.4 gm/dl (3.4-5.0) 01/14/23 17:10 Globulin 2.8 gm/dl (2.5-4.0) 01/14/23 17:10 Albumin/Globulin Ratio 1.6 (0.9-2) 01/14/23 17:10 Lipase 46 U/L (11-82) 01/14/23 17:10 Procalcitonin < 0.05 ng/ml (0-0.5) 01/14/23 17:10 Urine Color Yellow 01/14/23 19: Urine Appearance Cloudy (Clear) A 01/14/23 19: Urine pH 6.0 (4.5-7.5) 01/14/23 19: Ur Specific [place] 1.016 (1.000-1.030) 01/14/23 19: Urine Protein Negative (Negative) 01/14/23 19: Urine Glucose (UA) Negative (Negative) 01/14/23 19: Urine Ketones Negative (Negative) 01/14/23 19: Urine Blood 1+ (Negative) H 01/14/23 19:27 Urine Nitrite Negative (Negative) 01/14/23 19:27 Urine Bilirubin Negative (Negative) 01/14/23 19:27 Urine Urobilinogen Negative (Negative) 01/14/23 19:27 Ur Leukocyte Esterase Trace (Negative) H 01/14/23 19:27 Urine WBC (Auto) 1-5 /hpf (0-5) 01/14/23 19:27 Urine RBC (Auto) 5-10 /hpf (0-4) H 01/14/23 19:27 U Hyaline Cast (Auto) 1-5 /lpf (0-5) 01/14/23 19:27 U Epithel Cells (Auto) >30 /lpf (0-5) H 01/14/23 19:27 Urine Bacteria (Auto) Negative (Negative) 01/14/23 19:27 Impressions KUB X-Ray 01/14/23 17:01 KUB CLINICAL HISTORY: Right flank pain. Known right ureteral stone. FINDINGS: 2 AP supine abdominal radiographs are correlated with abdominal CT dated 01/06/2023. Cholecystectomy clips are noted in the right quadrant. There is a nonobstructed abdominal bowel gas pattern. Moderate fecal retention is seen throughout the colon and largely obscures the renal shadows. No calcifications are clearly seen projecting over either kidney. A 5 mm radiodensity projecting below the right transverse process of L2 likely corresponds to the patient's known ureteral stone. A pelvic calcification is unchanged. The bony structures appear intact. IMPRESSION: 1. A 5 mm radiodensity projecting below the right transverse process of L2 likely corresponds to patient's known ureteral stone. 2. No calcifications are clearly seen projecting over either kidney. Note that the renal shadows are largely obscured by overlying bowel contents. Electronically signed by: Garrison Mar M.D. 01/14/2023 5:49 PM
[2023-01-14] MEDS ORDERED: D5W AND LACTATED RINGERS 1,000 ML IV ONE (22:32)
[2023-01-14] MEDS: HYDROmorphone INJ 1 MG/ML SYRINGE IV PRN (23:26)
[2023-01-15] MEDS: oxyCODONE HCL IR 5 MG TAB (IMMEDIATE RELEASE) PO PRN ×4 (01:35→17:46)
[2023-01-15] MEDS: PROMETHAZINE HCL 12.5 MG in SODIUM CHLORIDE 0.9% 50 ML IV PRN ×2 (01:59→10:04)
[2023-01-15] MEDS: HYDROmorphone INJ 1 MG/ML SYRINGE IV PRN ×5 (03:12→22:37)
[2023-01-15] MEDS: LORazepam 0.5 MG TAB PO PRN ×2 (04:10→22:42)
[2023-01-15] MEDS: ACETAMINOPHEN 500 MG TAB PO PRN ×2 (04:10→16:24)
[2023-01-15] MEDS ORDERED: KETOROLAC TROMETHAMINE 15 MG/ML VIAL IV ONE ×2 (05:57→21:25)
[2023-01-15 06:47] LABS: Basophils # (auto) 0.08 K/uL (0-0.2); Basophils % (auto) 1.2 %; Eosinophils % (auto) 1.6 %; Hematocrit (blood only) 35.4 % (37.0-47.0); Hemoglobin 11.5 g/dl (12.0-16.0); Immature Granulocytes # (auto) 0.01 K/uL (0.01-0.20); Immature Granulocytes % (auto) 0.2 %; Lymphocytes # (auto) 2.91 K/uL (1.2-3.4); Lymphocytes % (auto) 45.3 %; Mean Corpuscular Hemoglobin 29.2 pg (25.0-34.0); Mean Corpuscular Hgb Conc 32.5 g/dL (32.0-36.0); Mean Corpuscular Volume 89.8 fL (80.0-100.0); Mean Platelet Volume 9.6 fL (9.4-12.4); Monocytes # (auto) 0.49 K/uL (0.11-0.59); Monocytes % (auto) 7.6 %; Neutrophils # (auto) 2.83 K/uL (1.40-6.50); Neutrophils % (auto) 44.1 %; Platelet Count 296 K/uL (130-400); RDW Coefficient of Variation 13.5 % (11.5-14.5); RDW Standard Deviation 45.1 fL (36.4-46.3); Red Blood Count 3.94 M/uL (4.20-5.40); White Blood Count 6.42 K/ul (4.8-10.8)
[2023-01-15 06:50] LABS: BUN Creatinine Ratio 10.9 (10-20); Calcium 8.8 mg/dl (8.6-10.3); Creatinine Clr Calc Pharmacy 151.1 ml/min; Est GFR (African American) 139.8 ml/min; Est GFR (Non-African American) 120.6 ml/min; Potassium 3.8 mmol/L (3.5-5.1)
--- NOTE | 2023-01-15 07:25 | Urology Consultation ---
Date of Consultation January 15, 2023 Assessment & Plan (1) Calculus of proximal right ureter: We discussed the stone in her right ureter. It is small enough that she has a decent chance to pass spontaneously, however she has come to the hospital twice with uncontrollable pain. At this point would be reasonable to intervene with either ureteral stent placement or ureteroscopy and stone removal. We discussed risks and benefits of the surgeries including risk of bleeding, infection, injury to the urinary tract, inability to remove the stone, need for ureteral stent, need for additional procedure. We discussed that if there is any sign of infection behind the stone, we will only plan on ureteral stent placement and she will need definitive stone management in the future. She expressed understanding. We will plan to proceed with right ureteral stent placement, possible ureteroscopy with laser lithotripsy. (2) UTI (urinary tract infection): Urinalysis from 01/06/2023 was suspicious. She has been on antibiotics for a week and is not having any infectious symptoms currently. We will treat with perioperative antibiotics. History of Present Illness Attending Physician: Ivory Valentino, History of Present Illness This is a 27-year-old female followed by urology for nephrolithiasis. She has required ureteroscopy and laser lithotripsy in the past for multiple stones. She was in the emergency department on 01/06/2023 with right-sided flank pain. At that time the CT scan identified a 4 mm right ureteral stone with associated hydronephrosis. Pain was reasonably controlled so she was sent home for a trial of medical expulsive therapy. She returned to the emergency department on 01/14/2023 with persistent/worsening right-sided flank pain. She has not been having any fevers or chills. She required IV medication for pain control while in the ED and was subsequently admitted to the hospital. This morning she is still having pain and has not passed the stone. Of note, she is now established with endocrinology and has been diagnosed with hyperparathyroidism. Labs reviewed: 01/15/2023: WBC 6.42, creatinine 0.64, glucose 102 01/14/2023: Urinalysis with 1+ blood, negative nitrites, trace leukocyte esterase I independently reviewed her CT scan from 01/06/2023. Both kidneys are in normal position. There are small (1-2 mm) nonobstructing stones in both kidneys. There is a 4 mm stone in the mid to proximal right ureter. Her bladder is grossly normal. Allergies Allergy/AdvReac Type Severity Reaction Status Date / Time sulfamethoxazole Allergy Intermediate HIVES Verified 01/06/23 16:58 trimethoprim Allergy Intermediate HIVES Verified 01/06/23 16:58 morphine Allergy Mild Hives Verified 01/06/23 16:58 Home Medications Medication Instructions Recorded Confirmed Type sertraline 100 mg tablet 150 mg PO QAM 03/03/21 01/14/23 History omeprazole 20 mg capsule,delayed 20 mg PO QAM 11/08/21 01/14/23 History release buspirone 10 mg tablet 10 mg PO AMHS 01/06/23 01/14/23 History cyclobenzaprine 10 mg tablet 10 mg PO TID PRN Pain 01/06/23 01/14/23 History tamsulosin 0.4 mg capsule (Flomax) 0.4 mg PO QAM 01/06/23 01/14/23 History ferrous sulfate 325 mg (65 mg 325 mg PO AMHS 01/14/23 01/14/23 History iron) tablet mrwganje-gybmplwi-fail 45 mg-folic 1 cap PO DAILY 01/14/23 01/14/23 History acid 800 mcg-vit K 120 mcg capsule (Bariatric Multivitamins) ondansetron 4 mg disintegrating 4 mg translingual Q8 PRN Nausea 01/14/23 01/14/23 History tablet Patient History Medical History Depression Diverticulitis Hx of perforated bowel >10yrs ago -s/p IV antibiotics GERD (gastroesophageal reflux disease) Kidney stones Surgical History History of appendectomy 03/16/19: Grade 2 view, Veloz 2, ETT 7.5 atraumatic x 1. History of cholecystectomy 06/10/19: Grade 1 view, MAC 3, ETT 7.5 atraumatic x 1. History of colonoscopy History of Otilia-en-Y gastric bypass 6 months ago @ [facility] [place] History of wisdom tooth extraction Hx of cystoscopy w/ stent-04/2022 [facility] PONV (postoperative nausea and vomiting) Previous section Status post laparoscopic procedure REMOVED uterine surface endometriotic tissue Family History Uncle Diabetes Mother Kidney stones Breast cancer Hx of cholecystectomy Hypertension Father Hx of cholecystectomy Other No family history of adverse response to anesthesia Social History Smoking Status: Never smoker Second Hand Exposure: No; Do You Dip or Chew Tobacco: No; Hx Alcohol Use: Yes Alcohol type: wine Hx Substance Use: No Preferred Language: Australian Communication Ability: Effective 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 Physical Exam Constitutional: well developed and well nourished; no acute distress Eyes: + anicteric sclerae; pupils not irregular Respiratory: normal respiratory effort; no respiratory distress, does not use accessory muscles and no cough Cardiovascular: well perfused Gastrointestinal (Abdomen): Inspection/Auscultation: abdomen normal to inspection; abdomen not distended Musculoskeletal: Extremities: extremities normal to inspection Skin: normal turgor; no rashes and no lesions Neurologic: moves all extremities and awake Psychiatric: Orientation: alert and oriented x 3 Results & Data Vital Signs (Past 12 Hours) Vital Signs Temp Pulse Pulse Pulse Resp BP BP 01/15/23 01:21 36.7 C 60 18 114/76 01/15/23 00:00 80 19 112/88 01/14/23 23:32 97 H 22 126/86 01/14/23 23:31 94 H 20 126/86 01/14/23 21:57 76 18 128/85 01/14/23 19:34 67 18 123/77 01/14/23 19:26 68 Pulse Ox O2 Del Method 01/15/23 01:21 98 Room Air 01/15/23 00:00 01/14/23 23:32 100 Room Air 01/14/23 23:31 98 Room Air 01/14/23 21:57 100 Room Air 01/14/23 19:34 100 Room Air 01/14/23 19:26 PG Care Time/CCT Total # of Minutes Spent Total Time Spent with Patient: Total time spent is greater than 50% in coordination of care (as documented) at patient's floor/unit and/or counseling patient: Coding Level of Care Code 69923 IN/OBS CONSULT LVL 4,60M Diagnoses Calculus of proximal right ureter N20.1 UTI (urinary tract infection) N39.0
[2023-01-15] MEDS: cephALEXin 500 MG CAP PO SCH ×4 (07:47→20:32)
[2023-01-15] MEDS: busPIRone 5 MG TAB PO SCH ×2 (07:48→20:33)
[2023-01-15] MEDS: TAMSULOSIN HCL 0.4 MG CAP PO SCH (07:52)
[2023-01-15] MEDS: PANTOprazole 40 MG TAB PO SCH (07:52)
[2023-01-15] MEDS: FERROUS SULFATE 325 MG TAB PO SCH ×2 (07:52→20:32)
[2023-01-15] MEDS: SERTRALINE HCL 50 MG TABLET PO SCH (07:52)
[2023-01-15] MEDS: MULTIVITAMIN TAB PO SCH (07:55)
[2023-01-15] MEDS ORDERED: D5W AND LACTATED RINGERS 1,000 ML IV SCH (09:00)
--- NOTE | 2023-01-15 09:04 | Anesthesiology Consultation ---
Date of Service January 15, 2023 History Surgery Operation Date: 01/15/23 09:40 Proposed Procedures p Cystoscopy, Right Stent Placement, Possible Ureteroscopy, Possible Laser - Lenard Mack MD Height/Weight Height: 5 ft 6 in Weight: 95.6 kg Allergies Allergy/AdvReac Type Severity Reaction Status Date / Time sulfamethoxazole Allergy Intermediate HIVES Verified 01/06/23 16:58 trimethoprim Allergy Intermediate HIVES Verified 01/06/23 16:58 morphine Allergy Mild Hives Verified 01/06/23 16:58 Medications Home Medications Medication Instructions Recorded Confirmed Last Taken sertraline 100 mg tablet 150 mg PO QAM 03/03/21 01/14/23 01/05/23 omeprazole 20 mg capsule,delayed 20 mg PO QAM 11/08/21 01/14/23 01/05/23 release buspirone 10 mg tablet 10 mg PO AMHS 01/06/23 01/14/23 01/05/23 cyclobenzaprine 10 mg tablet 10 mg PO TID PRN Pain 01/06/23 01/14/23 01/05/23 tamsulosin 0.4 mg capsule (Flomax) 0.4 mg PO QAM 01/06/23 01/14/23 01/05/23 ferrous sulfate 325 mg (65 mg 325 mg PO AMHS 01/14/23 01/14/23 Unknown iron) tablet unpjjros-lmpssgph-tatn 45 mg-folic 1 cap PO DAILY 01/14/23 01/14/23 Unknown acid 800 mcg-vit K 120 mcg capsule (Bariatric Multivitamins) ondansetron 4 mg disintegrating 4 mg translingual Q8 PRN Nausea 01/14/23 01/14/23 Unknown tablet Active Medications Generic Name Dose Route Start Last Admin Trade Name Freq PRN Reason Stop Dose Admin Acetaminophen 500 mg 01/14/23 22:32 01/15/23 04:10 Acetaminophen 500 Mg Tab PO 02/13/23 22:31 500 mg Q6H PRN Administration Pain/Fever Buspirone HCl 10 mg 01/15/23 09:00 01/15/23 07:48 Buspirone 5 Mg Tab PO 02/14/23 08:59 [facility] Cephal[facility] 500 mg 01/15/23 09:00 01/15/23 07:47 Cephalexin 500 Mg Cap PO 01/25/23 08:59 500 mg QID CHELSEY Administration Protocol Ferrous Sulfate 325 mg 01/15/23 09:00 01/15/23 07:52 Ferrous Sulfate 325 Mg Tab PO 02/14/23 08:59 325 mg AMHS CHELSEY Administration Hydromorphone HCl 1 mg 01/14/23 22:32 01/15/23 07:47 Hydromorphone Inj 1 Mg/Ml Syringe IV 01/28/23 22:31 1 mg Q4H PRN Administration Pain Promethazine HCl 12.5 mg/ 50.5 mls @ 202 mls/hr 01/14/23 22:32 01/15/23 02:14 Sodium Chloride IV 02/13/23 22:31 Infused Q6H PRN Infusion Nausea And Vomiting Dextrose/Lactated Ringer's 1,000 mls @ 40 mls/hr 01/15/23 09:00 01/15/23 07:48 D5w And Lactated Ringers IV 02/14/23 08:59 40 mls/hr .Q24H CHELSEY Administration Lorazepam 0.5 mg 01/14/23 22:32 01/15/23 04:10 Lorazepam 0.5 Mg Tab PO 02/13/23 22:31 0.5 mg TID PRN Administration Anxiety Multivitamins 1 tab 01/15/23 09:00 01/15/23 07:55 Multivitamin Tab PO 02/14/23 08:59 Not Given DAILY CHELSEY Oxycodone HCl 5 - 10 mg 01/14/23 22:32 01/15/23 08:42 Oxycodone Hcl Ir 5 Mg Tab (Immediate Release) PO 01/28/23 22:31 10 mg QID PRN Administration Pain Pantoprazole Sodium 40 mg 01/15/23 09:00 01/15/23 07:52 Pantoprazole 40 Mg Tab PO 02/14/23 08:59 40 mg QAM CHELSEY Administration Sertraline HCl 150 mg 01/15/23 09:00 01/15/23 07:52 Sertraline Hcl 50 Mg Tablet PO 02/14/23 08:59 150 mg QAM CHELSEY Administration Tamsulosin HCl 0.4 mg 01/15/23 09:00 01/15/23 07:52 Tamsulosin Hcl 0.4 Mg Cap PO 02/14/23 08:59 0.4 mg QAM CHELSEY Administration Past Medical History Medical History Depression Diverticulitis Hx of perforated bowel >10yrs ago -s/p IV antibiotics GERD (gastroesophageal reflux disease) Kidney stones Past Family History Family History Uncle Diabetes Mother Kidney stones Breast cancer Hx of cholecystectomy Hypertension Father Hx of cholecystectomy Other No family history of adverse response to anesthesia Past Surgical History Surgical History History of appendectomy 03/16/19: Grade 2 view, Veloz 2, ETT 7.5 atraumatic x 1. History of cholecystectomy 06/10/19: Grade 1 view, MAC 3, ETT 7.5 atraumatic x 1. History of colonoscopy History of Otilia-en-Y gastric bypass 6 months ago @ [facility] [place] History of wisdom tooth extraction Hx of cystoscopy w/ stent-04/2022 [facility] PONV (postoperative nausea and vomiting) Previous section Status post laparoscopic procedure REMOVED uterine surface endometriotic tissue Social History Smoking Status: Never smoker Do You Dip or Chew Tobacco: No Hx Alcohol Use: Yes Alcohol type: wine alcohol intake frequency: holidays/special occasions only Hx Substance Use: No substance use type: does not use Physical Exam Vital Signs Last Vital Signs Temp 98.4 F 01/15/23 07:43 Pulse 65 01/15/23 07:43 Resp 18 01/15/23 07:43 BP 118/84 01/15/23 07:43 Pulse Ox 99 01/15/23 07:43 O2 Del Method Room Air 01/15/23 07:43 Testing Laboratory Results 01/15/23 05:43 01/15/23 05:43 Urine Color Yellow 01/14/23 19:27 Urine Appearance Cloudy (Clear) A 01/14/23 19:27 Urine pH 6.0 (4.5-7.5) 01/14/23 19:27 Ur Specific [place] 1.016 (1.000-1.030) 01/14/23 19:27 Urine Protein Negative (Negative) 01/14/23 19:27 Urine Glucose (UA) Negative (Negative) 01/14/23 19:27 Urine Ketones Negative (Negative) 01/14/23 19:27 Urine Nitrite Negative (Negative) 01/14/23 19:27 Ur Leukocyte Esterase Trace (Negative) H 01/14/23 19:27 Urine WBC (Auto) 1-5 /hpf (0-5) 01/14/23 19:27 Urine RBC (Auto) 5-10 /hpf (0-4) H 01/14/23 19:27 U Hyaline Cast (Auto) 1-5 /lpf (0-5) 01/14/23 19:27 U Epithel Cells (Auto) >30 /lpf (0-5) H 01/14/23 19:27 Urine Bacteria (Auto) Negative (Negative) 01/14/23 19:27 Electrocardiogram Date: 01/06/23 Findings: + NSR @
[2023-01-15] MEDS ORDERED: DIATRIZOATE MEGLUMINE 30% 100ML VIAL INSTIL PRN (11:58)
[2023-01-15] MEDS ORDERED: MIDAZOLAM HCL 1 MG/ML 2ML VIAL ONE (11:59)
[2023-01-15] MEDS ORDERED: fentaNYL citrate PF 100 MCG/2 ML VIAL ONE (11:59)
[2023-01-15] MEDS ORDERED: ATROPINE SULFATE 0.1 MG/ML 10ML SYR IV PRN (12:03)
[2023-01-15] MEDS ORDERED: ePHEDrine sulfate 50 MG/ML AMP IV PRN (12:03)
[2023-01-15] MEDS ORDERED: NALOXONE HCL 0.4 MG/1 ML VIAL/CARP IV PRN (12:03)
[2023-01-15] MEDS ORDERED: PROMETHAZINE HCL 12.5 MG in SODIUM CHLORIDE 0.9% 50 ML IV PRN (12:03)
[2023-01-15] MEDS ORDERED: ONDANSETRON INJ 2 MG/ML 2 ML VIAL ONE (12:29)
[2023-01-15] MEDS ORDERED: PROPOFOL IV EMULSION 10 MG/ML 20 ML VIAL IV ONE (12:29)
[2023-01-15] MEDS ORDERED: LIDOCAINE 2% 2 ML VIAL/AMP(20MG/ML) INFIL ONE (12:29)
[2023-01-15] MEDS ORDERED: KETOROLAC 30 MG/ML VIAL ONE (12:29)
[2023-01-15] MEDS ORDERED: DEXAMETHASONE SOD INJ 4 MG/ML VIAL ONE (12:29)
[2023-01-15] MEDS ORDERED: ceFAZolin 2000MG 2,000 MG/15 ML SYR IV ONE (12:31)
[2023-01-15] MEDS ORDERED: ceFAZolin 330 MG/ML 1 GM VIAL ONE (12:31)
[2023-01-15] MEDS ORDERED: SODIUM CHLORIDE 0.9% PF INJ 10 ML VIAL ONE ×2 (12:31)
--- NOTE | 2023-01-15 12:53 | Operative Report ---
PG Post Operative Report Pre & Post Diagnosis Operation Date: 01/15/23 09:40 Pre-Op Diagnosis: Calculus of proximal right ureter. Post-Op Diagnosis: Calculus of proximal right ureter. I identified the patient and participated in the time-out.: Yes Procedure Operation Date: 01/15/23 09:40 Actual Procedures p Cystoscopy, retrograde pyelogram, ureteroscopy, basket extraction, Right Stent Placement(Right) - Lenard Mack MD Surgeon Lenard Mack MD Civil Structural Designer None Estimated Blood Loss 0 Findings See Below Stone visualized in the distal ureter, grasped with a basket and removed. Successful right ureteral stent placement. Strings left attached to facilitate removal by the patient. Specimens Right ureteral stone Drains 6 Afghan by 24 cm double-J ureteral stent in the right ureter, strings attached. Anesthesia Type General Complications none Disposition Accompanied Patient To Recovery: Yes Disposition: Recovery Room Indications This is a 27-year-old female with history of nephrolithiasis. She was recently found to have a right ureteral stone and has had intractable pain. She presents to the OR for stone removal and stent placement. Description of Procedure The patient was identified in the holding area and informed consent was confirmed. She was marked on the right side, then was taken to the operating room where general anesthesia was initiated. She was placed in the dorsal lithotomy position with all pressure points appropriately padded. She was prepped and draped in the usual sterile fashion and a preoperative timeout was performed. A well-lubricated cystoscope was inserted per urethra and panendoscopy was performed. The urethra was normal with no strictures or mucosal abnormalities. Her bladder appeared grossly normal with no tumors or stones appreciated. Ureteral orifices were in orthotopic position bilaterally. There is a tiny amount of stone debris in the bladder. A 5 Afghan open-ended catheter was inserted and intubated into the right ureteral orifice. Using Cystografin, a retrograde pyelogram was performed. There was a filling defect in the distal ureter, suspicious for her stones. There was some hydronephrosis proximal to this. A 0.038 inch zip wire was advanced up to the kidney under fluoroscopic guidance. Alongside the wire, I inserted a semirigid ureteroscope. In the distal ureter I visualized 2 stones, each were approximately 3 mm in diameter. The Nitinol wire basket was used to grasp and remove the stones. The stones were collected and sent for analysis labeled as right ureteral stones. The remainder of the ureter was surveyed and no additional stones were identified. There was no significant trauma. There was minimal edema of the distal ureter. The cystoscope was reinserted over the wire, then a 6 Afghan x 24 centimeter double-J ureteral stent was advanced. When the wire was removed, the proximal curl was visualized in the kidney with x-ray, and the distal curl visualized in the bladder with the cystoscope. Strings were left attached to the stent to facilitate removal by the patient. At this point the bladder was drained and all instrumentation was removed. The strings from the stent were secured to her right thigh using benzoin and a Tegaderm. The patient was then awakened from anesthesia and was brought to the PACU in stable condition. I attest to the content of the Intraoperative Record and any orders documented therein. Any exceptions are noted below.
[2023-01-15] MEDS: fentaNYL citrate PF 100 MCG/2 ML VIAL IV PRN ×4 (13:07→13:23)
--- NOTE | 2023-01-15 13:16 | Anesthesiology Progress Note ---
Date of Service January 15, 2023 Anesthesia Post Procedure Vital Signs Vital Signs: Temp Pulse Pulse Pulse Resp BP BP 01/15/23 12:55 36.1 C L 85 13 125/70 01/15/23 07:43 36.9 C 65 18 118/84 01/15/23 01:21 36.7 C 60 18 114/76 01/15/23 00:00 80 19 112/88 01/14/23 23:32 97 H 22 126/86 01/14/23 23:31 94 H 20 126/86 01/14/23 21:57 76 18 128/85 01/14/23 19:34 67 18 123/77 01/14/23 19:26 68 01/14/23 16:58 36.5 C 99 H 20 140/101 H Pulse Ox O2 Del Method O2 Flow Rate 01/15/23 12:55 100 Oxymask 6 01/15/23 07:43 99 Room Air 01/15/23 01:21 98 Room Air 01/15/23 00:00 01/14/23 23:32 100 Room Air 01/14/23 23:31 98 Room Air 01/14/23 21:57 100 Room Air 01/14/23 19:34 100 Room Air 01/14/23 19:26 01/14/23 16:58 97 Room Air Pain Intensity Right Flank: Pain Intensity: 7 Transfer of Care Handoff Completed per policy Notes Mental Status: alert / awake / arousable Patient Amnestic to Procedure: Yes Nausea / Vomiting: adequately controlled Pain: adequately controlled Airway Patency, RR, SpO2: stable & adequate BP & HR: stable & adequate Hydration State: stable & adequate Anesthetic Complications: no major complications apparent and Pt Satisfied with anesthetic care
--- NOTE | 2023-01-15 13:21 | Fluoroscopy Report ---
FL retrograde includes kub CLINICAL HISTORY: RT CYSTO STENT COMPARISON STUDY: None. FLUOROSCOPY TIME: 7 seconds FLUOROSCOPY IMAGES: 2 Ka,r: 2.4 mGy FINDINGS: Retrograde opacification of the right ureter with placement of a right ureteral stent. Only the proximal portion of the stent is identified and appears in good position. IMPRESSION: Fluoroscopic assistance as above. ACT 112: Negative or not required by law. Electronically signed by: Kris Rodriguez M.D. 01/15/2023 1:20 PM
--- NOTE | 2023-01-15 13:22 | Hospitalist Progress Note ---
Date of Service January 15, 2023 Assessment & Plan (1) Renal colic on right side: Plan: Calculus of proximal right ureter Nephrolithiasis --Renal USD:No hydronephrosis involving either kidney. Possible nonobstructive 4 mm calcific calculus in the lower pole on the left. --S/P right ureteral stent placement by on 01/15/23 -- No signs of UTI on urinalysis Blood cultures pending --Continue IV fluids, Flomax Appreciate urology input Pain control, antiemetics as needed Needs follow-up with urology for stent removal H/O Secondary hyperparathyroidism Vitamin D deficiency On vitamin D supplements per patient Follows with endocrinology as outpatient Plan for reevaluation as outpatient for possible parathyroidectomy GERD H/O Gastric bypass H/O NAFLD Continue home medications Prediabetes outpatient HbA1c of 5.3 Mood disorder Continue home medications DVT Px SCDs,Encourage to ambulate Code Status Full code Admission and Anticipated Discharge Date Admission Date: January 14, 2023 Subjective Patient is seen and examined at bedside States having right-sided flank pain radiating to groin Also reports minimal hematuria Denies any chest pain, dyspnea, dizziness, nausea, vomiting Discussed with urology today Patient had right ureteral stent placement today Review of Systems Review of Systems: All systems reviewed & are unremarkable except as noted in Subjective Physical Exam Physical Exam: Physical Exam: Vitals signs as noted above General Appearance:Obese, no apparent distress Head: normocephalic, Atraumatic Eyes: normal inspection, EOMI Neck: supple, Trachea midline Respiratory/Chest: Normal breath sounds, CTA, No accessory muscle use Cardiovascular: S1, S2, No murmur Abdomen/GI:Soft, R flank tender, Bowel sounds present Extremities/Musculoskeletal:normal inspection, no edema Neurologic/Psych:AAOX3, grossly no focal neurological deficits Skin: normal color, warm Results & Data Results & Data Vital Signs (Past 12 Hours) Vital Signs Temp Pulse Pulse Resp BP Pulse Ox O2 Del Method 01/15/23 13:15 70 12 128/83 100 Nasal Cannula 01/15/23 13:05 81 14 139/94 100 Nasal Cannula 01/15/23 12:55 36.1 C L 85 13 125/70 100 Oxymask 01/15/23 07:43 36.9 C 65 18 118/84 99 Room Air O2 Flow Rate 01/15/23 13:15 3 01/15/23 13:05 3 01/15/23 12:55 6 01/15/23 07:43 Laboratory Results Short CBC 01/14/23 01/15/23 Range/Units 17:10 05:43 WBC 8.19 6.42 (4.8-10.8) K/ul Hgb 13.0 11.5 L (12.0-16.0) g/dl Hct 39.2 35.4 L (37.0-47.0) % Plt Count 379 296 (130-400) K/uL BMP 01/14/23 01/15/23 17:10 05:43 Sodium 139 140 Potassium 4.0 3.8 Chloride 105 109 H Carbon Dioxide 26 27 BUN 9 7 Creatinine 0.69 0.64 Glucose 97 102 H Calcium 9.3 8.8 Liver Function 01/14/23 Range/Units 17:10 Total Bilirubin 0.4 (0.2-1.0) mg/dl AST 15 (13-39) U/L ALT 9 (7-52) U/L Alkaline Phosphatase 52 (34-104) U/L Albumin 4.4 (3.4-5.0) gm/dl Urine 01/14/23 Range/Units 19:27 Urine Color Yellow Urine Appearance Cloudy A (Clear) Urine pH 6.0 (4.5-7.5) Ur Specific Comfort 1.016 (1.000-1.030) Urine Protein Negative (Negative) Urine Glucose (UA) Negative (Negative)
[2023-01-15] MEDS: PHENAZOPYRIDINE HCL 100 MG TAB PO PRN (17:41)
[2023-01-16] MEDS: oxyCODONE HCL IR 5 MG TAB (IMMEDIATE RELEASE) PO PRN ×2 (00:06→07:08)
[2023-01-16] MEDS: ACETAMINOPHEN 500 MG TAB PO PRN ×2 (00:06→11:03)
[2023-01-16] MEDS: HYDROmorphone INJ 1 MG/ML SYRINGE IV PRN ×2 (05:59→10:13)
[2023-01-16] MEDS: PHENAZOPYRIDINE HCL 100 MG TAB PO PRN (07:36)
[2023-01-16] MEDS: TAMSULOSIN HCL 0.4 MG CAP PO SCH (07:41)
[2023-01-16] MEDS: PANTOprazole 40 MG TAB PO SCH (07:41)
[2023-01-16] MEDS: MULTIVITAMIN TAB PO SCH (07:41)
[2023-01-16] MEDS: cephALEXin 500 MG CAP PO SCH ×2 (07:41→12:22)
[2023-01-16] MEDS: SERTRALINE HCL 50 MG TABLET PO SCH (07:41)
[2023-01-16] MEDS: FERROUS SULFATE 325 MG TAB PO SCH (07:41)
[2023-01-16] MEDS: busPIRone 5 MG TAB PO SCH ×2 (07:42→07:43)
[2023-01-16 08:05] LABS: Hematocrit (blood only) 35.9 % (37.0-47.0); Hemoglobin 11.6 g/dl (12.0-16.0); Mean Corpuscular Hemoglobin 29.4 pg (25.0-34.0); Mean Corpuscular Hgb Conc 32.3 g/dL (32.0-36.0); Mean Corpuscular Volume 91.1 fL (80.0-100.0); Mean Platelet Volume 9.4 fL (9.4-12.4); Platelet Count 281 K/uL (130-400); RDW Coefficient of Variation 13.7 % (11.5-14.5); Red Blood Count 3.94 M/uL (4.20-5.40)
[2023-01-16 08:22] LABS: BUN Creatinine Ratio 7.7 (10-20); Calcium 8.8 mg/dl (8.6-10.3); Creatinine Clr Calc Pharmacy 148.8 ml/min; Est GFR (African American) 139.1 ml/min; Potassium 4.2 mmol/L (3.5-5.1)
--- NOTE | 2023-01-16 10:11 | Urology Progress Note ---
Date of Service January 16, 2023 Assessment & Plan (1) Calculus of proximal right ureter: Plan: Doing well, s/p ureteroscopy and stone removal on 01/15/2023. Should be ready for discharge home today. She already has follow-up scheduled with urology. We discussed that her stent can be removed on 01/17/2023. Single dose of antibiotics was sent to her pharmacy. Urology will sign off for now, please call with any questions or concerns. Admission and Anticipated Discharge Date Admission Date: January 14, 2023 Subjective Feeling well this morning, denies fevers or chills. Tolerating stent without any trouble No longer having stone pain. Review of Systems Review of Systems: 12 point review of systems negative except for otherwise indicated. Physical Exam Physical Exam: Well-appearing, NAD Results & Data Vital Signs (Past 12 Hours) Vital Signs Temp Pulse Resp BP Pulse Ox O2 Del Method 01/16/23 07:11 36.7 C 86 16 118/74 99 Room Air 01/16/23 04:22 36.6 C 77 18 122/79 98 Room Air 01/16/23 00:19 36.7 C 92 H 18 121/80 98 Room Air PG Care Time/CCT Total # of Minutes Spent Total Time Spent with Patient: Total time spent is greater than 50% in coordination of care (as documented) at patient's floor/unit and/or counseling patient: Coding Level of Care Code 07948 SUB INP/OBS CARE 1/25MIN Diagnoses Calculus of proximal right ureter N20.1
--- NOTE | 2023-01-16 12:02 | Hospitalist Progress Note ---
Date of Service January 16, 2023 Assessment & Plan (1) Renal colic on right side: Plan: Calculus of proximal right ureter Nephrolithiasis --Renal USD:No hydronephrosis involving either kidney. Possible nonobstructive 4 mm calcific calculus in the lower pole on the left. --S/P right ureteral stent placement by on 01/15/23 -- No signs of UTI on urinalysis Blood cultures no growth to date --Received IV fluids, Flomax Appreciate urology input Pain control, antiemetics as needed Needs follow-up with urology for stent removal Plan to discharge home today H/O Secondary hyperparathyroidism Vitamin D deficiency On vitamin D supplements per patient Follows with endocrinology as outpatient Plan for reevaluation as outpatient for possible parathyroidectomy GERD H/O Gastric bypass H/O NAFLD Continue home medications Prediabetes outpatient HbA1c of 5.3 Mood disorder Continue home medications DVT Px SCDs,Encourage to ambulate Code Status Full code Disposition Home Admission and Anticipated Discharge Date Admission Date: January 14, 2023 Subjective Patient is seen and examined at bedside Flank pain, ureteral stent pain much improved Minimal hematuria but otherwise no complaints Denies any chest pain, dyspnea, dizziness, nausea, vomiting Plan to discharge home today Review of Systems Review of Systems: All systems reviewed & are unremarkable except as noted in Subjective Physical Exam Physical Exam: Physical Exam: Vitals signs as noted above General Appearance:Obese, no apparent distress Head: normocephalic, Atraumatic Eyes: normal inspection, EOMI Neck: supple, Trachea midline Respiratory/Chest: Normal breath sounds, CTA, No accessory muscle use Cardiovascular: S1, S2, No murmur Abdomen/GI:Soft, R flank tender, Bowel sounds present Extremities/Musculoskeletal:normal inspection, no edema Neurologic/Psych:AAOX3, grossly no focal neurological deficits Skin: normal color, warm Results & Data Results & Data Vital Signs (Past 12 Hours) Vital Signs Temp Pulse Resp BP Pulse Ox O2 Del Method 01/16/23 10:48 36.7 C 95 H 16 117/80 98 Room Air 01/16/23 10:10 97 H 119/77 01/16/23 07:11 36.7 C 86 16 118/74 99 Room Air 01/16/23 04:22 36.6 C 77 18 122/79 98 Room Air 01/16/23 00:19 36.7 C 92 H 18 121/80 98 Room Air Laboratory Results Short CBC 01/16/23 Range/Units 07:41 WBC 5.90 (4.8-10.8) K/ul Hgb 11.6 L (12.0-16.0) g/dl Hct 35.9 L (37.0-47.0) % Plt Count 281 (130-400) K/uL BMP 01/16/23 07:41 Sodium 137 Potassium 4.2 Chloride 105 Carbon Dioxide 29 BUN 5 L Creatinine 0.65 Glucose 103 H Calcium 8.8
[2023-01-16] MEDS ORDERED: oxyCODONE HCL IR 5 MG TAB (IMMEDIATE RELEASE) PO ONE (12:07)
--- NOTE | 2023-01-16 12:11 | Discharge Summary ---
Date of Service January 16, 2023 Admission HPI Per Admitting Provider History obtained from patient and records. Medical history significant for recurrent urolithiasis, GERD, secondary hyperparathyroidism as per records, history of gastric bypass, NAFLD, prediabetes, mood disorder. Last confinement 2018 under General Surgery service for early appendicitis status post surgery. 9 days ago, patient noted right flank pain reminiscent of kidney stone attack. Patient consulted [facility] ER. CT abdomen and pelvis showed 4 mm obstructing calculus right proximal ureter causing mild right hydronephrosis. UA showed WBC esterase. Patient discharged home on oxycodone, Flomax and Keflex course. Symptoms improved at home without passage of stone as per patient. Recurrent right flank pain with hematuria symptoms noted 2 days ago. Patient consulted [facility] ER yesterday. CT abdomen pelvis showed obstructing distal right ureteral calculus measuring 5 mm with mild right hydroureteronephrosis. Patient discharged home. Patient returned to [facility] ER today for worsening symptoms. 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 Admission Exam Per Admitting Provider GENERAL: Comfortable, pleasant, obese, no respiratory distress SKIN: Normal color, warm HEENT: [place] palpebral conjunctivae, no ptosis, dry buccal mucosa NECK : Supple, no tenderness CHEST : CTA, no tenderness HEART : RRR, no obvious murmurs ABDOMEN: Some distention, minimal right-sided abdominal tenderness EXTREMITIES : Minimal LE swelling, no LE tenderness, no other conspicuous deformities noted NEUROLOGIC : Coherent, no facial asymmetry, no other gross focality Principal Diagnosis Calculus of proximal right ureter Nephrolithiasis Discharge Data Allergies Allergy/AdvReac Type Severity Reaction Status Date / Time sulfamethoxazole Allergy Intermediate HIVES Verified 01/06/23 16:58 trimethoprim Allergy Intermediate HIVES Verified 01/06/23 16:58 morphine Allergy Mild Hives Verified 01/06/23 16:58 Consultations 01/14/23 22:02 ED Decision to Admit Stat 01/15/23 01:11 Consult Urology Routine Procedures Performed Operation Date: 01/15/23 09:40 Actual Procedures p Cystoscopy, retrograde pyelogram, ureteroscopy, basket extraction, Right Stent Placement(Right) - Lenard Mack MD Laboratory Results WBC 5.90 K/ul (4.8-10.8) 01/16/23 07:41 RBC 3.94 M/uL (4.20-5.40) L 01/16/23 07:41 Hgb 11.6 g/dl (12.0-16.0) L 01/16/23 07:41 Hct 35.9 % (37.0-47.0) L 01/16/23 07:41 MCV 91.1 fL (80.0-100.0) 01/16/23 07:41 MCH 29.4 pg (25.0-34.0) 01/16/23 07:41 MCHC 32.3 g/dL (32.0-36.0) 01/16/23 07:41 RDW Std Deviation 46.0 fL (36.4-46.3) 01/16/23 07:41 RDW Coeff of [place] 13.7 % (11.5-14.5) 01/16/23 07:41 Plt Count 281 K/uL (130-400) 01/16/23 07:41 MPV 9.4 fL (9.4-12.4) 01/16/23 07:41 Immature Gran % (Auto) 0.2 % 01/15/23 05:43 Neut % (Auto) 44.1 % 01/15/23 05:43 Lymph % (Auto) 45.3 % 01/15/23 05:43 [place] % (Auto) 7.6 % 01/15/23 05:43 Eos % (Auto) 1.6 % 01/15/23 05:43 Baso % (Auto) 1.2 % 01/15/23 05:43 Neut # (Auto) 2.83 K/uL (1.40-6.50) 01/15/23 05:43 Lymph # (Auto) 2.91 K/uL (1.2-3.4) 01/15/23 05:43 [place] # (Auto) 0.49 K/uL (0.11-0.59) 01/15/23 05:43 Eos # (Auto) 0.10 K/uL (0-0.50) 01/15/23 05:43 Baso # (Auto) 0.08 K/uL (0-0.2) 01/15/23 05:43 Immature Gran # (Auto) 0.01 K/uL (0.01-0.20) 01/15/23 05:43 Sodium 137 mmol/L (136-145) 01/16/23 07:41 Potassium 4.2 mmol/L (3.5-5.1) 01/16/23 07:41 Chloride 105 mmol/L (98-107) 01/16/23 07:41 Carbon Dioxide 29 mmol/L (21-32) 01/16/23 07:41 Anion Gap 3 (3-11) 01/16/23 07:41 BUN 5 mg/dl (6-23) L 01/16/23 07:41 Creatinine 0.65 mg/dl (0.6-1.2) 01/16/23 07:41 Est Cr Clr Drug Dosing 148.8 ml/min 01/16/23 07:41 Est GFR ( Amer) 139.1 ml/min 01/16/23 07:41 Est GFR (Non-Af Amer) 120.0 ml/min 01/16/23 07:41 BUN/Creatinine Ratio 7.7 (10-20) L 01/16/23 07:41 Glucose 103 mg/dl (70-99(Fasting)) H 01/16/23 07:41 Lactate 0.9 mmol/L (0.4-2.0) 01/14/23 19:22 Calcium 8.8 mg/dl (8.6-10.3) 01/16/23 07:41 Total Bilirubin 0.4 mg/dl (0.2-1.0) 01/14/23 17:10 AST 15 U/L (13-39) 01/14/23 17:10 ALT 9 U/L (7-52) 01/14/23 17:10 Alkaline Phosphatase 52 U/L (34-104) 01/14/23 17:10 Total Protein 7.2 gm/dl (6.0-8.3) 01/14/23 17:10 Albumin 4.4 gm/dl (3.4-5.0) 01/14/23 17:10 Globulin 2.8 gm/dl (2.5-4.0) 01/14/23 17:10 Albumin/Globulin Ratio 1.6 (0.9-2) 01/14/23 17:10 Lipase 46 U/L (11-82) 01/14/23 17:10 Procalcitonin < 0.05 ng/ml (0-0.5) 01/14/23 17:10 Urine Color Yellow 01/14/23 19:27 Urine Appearance Cloudy (Clear) A 01/14/23 19:27 Urine pH 6.0 (4.5-7.5) 01/14/23 19:27 Ur Specific [place] 1.016 (1.000-1.030) 01/14/23 19:27 Urine Protein Negative (Negative) 01/14/23 19:27 Urine Glucose (UA) Negative (Negative) 01/14/23 19: Urine Ketones Negative (Negative) 01/14/23 19: Urine Blood 1+ (Negative) H 01/14/23 19:27 Urine Nitrite Negative (Negative) 01/14/23 19:27 Urine Bilirubin Negative (Negative) 01/14/23 19: Urine Urobilinogen Negative (Negative) 01/14/23 19:27 Ur Leukocyte Esterase Trace (Negative) H 01/14/23 19:27 Urine WBC (Auto) 1-5 /hpf (0-5) 01/14/23 19:27 Urine RBC (Auto) 5-10 /hpf (0-4) H 01/14/23 19:27 U Hyaline Cast (Auto) 1-5 /lpf (0-5) 01/14/23 19:27 U Epithel Cells (Auto) >30 /lpf (0-5) H 01/14/23 19:27 Urine Bacteria (Auto) Negative (Negative) 01/14/23 19: POC Ur Test NEG (NEG) 01/15/23 12:10 Impressions KUB X-Ray 01/14/23 17:01 KUB CLINICAL HISTORY: Right flank pain. Known right ureteral stone. FINDINGS: 2 AP supine abdominal radiographs are correlated with abdominal CT dated 01/06/2023. Cholecystectomy clips are noted in the right quadrant. There is a nonobstructed abdominal bowel gas pattern. Moderate fecal retention is seen throughout the colon and largely obscures the renal shadows. No calcifications are clearly seen projecting over either kidney. A 5 mm radiodensity projecting below the right transverse process of L2 likely corresponds to the patient's known ureteral stone. A pelvic calcification is unchanged. The bony structures appear intact. IMPRESSION: 1. A 5 mm radiodensity projecting below the right transverse process of L2 likely corresponds to patient's known ureteral stone. 2. No calcifications are clearly seen projecting over either kidney. Note that the renal shadows are largely obscured by overlying bowel contents. Electronically signed by: Garrison Mar M.D. 01/14/2023 5:49 PM Renal Ultrasound 01/14/23 17:01 Exam(s): US RENAL EXAM: US Retroperitoneal Limited, Renal CLINICAL HISTORY: Reason for exam: R kidney stone. TECHNIQUE: Real-time limited ultrasound of the retroperitoneum with image documentation. COMPARISON: October 23, 2022 FINDINGS: Right kidney: The right kidney measures 11.7 cm right normal renal cortical thickness and echogenicity. No hydronephrosis. Simple cyst in the upper pole the right kidney measures 1.5 x 141.6 cm. No follow-up is required. No stones. Left kidney: The left kidney measures 10.8 cm with normal renal cortical thickness and echogenicity. No hydronephrosis. Possible nonobstructive 4 mm calculus in the lower pole. Bladder: The urinary bladder is partially distended and unremarkable. Ureteral jets are not visible. IMPRESSION: No hydronephrosis involving either kidney. Possible nonobstructive 4 mm calcific calculus in the lower pole on the left. Electronically signed by: Sam Serrano MD 01/14/23 22:28 PM Retrograde Pyelogram 01/15/23 12:30 FL retrograde includes kub CLINICAL HISTORY: RT CYSTO STENT COMPARISON STUDY: None. FLUOROSCOPY TIME: 7 seconds FLUOROSCOPY IMAGES: 2 Ka,r: 2.4 mGy FINDINGS: Retrograde opacification of the right ureter with placement of a right ureteral stent. Only the proximal portion of the stent is identified and appears in good position. IMPRESSION: Fluoroscopic assistance as above. ACT 112: Negative or not required by law. Electronically signed by: Kris Rodriguez M.D. 01/15/2023 1:20 PM Ordered Studies 01/14/23 17:01 US Renal Bladder [US renal/blad retro comp] Stat 01/15/23 12:30 FL retrograde includes kub Routine Hospital Course (1) Renal colic on right side: Calculus of proximal right ureter Nephrolithiasis --Renal USD:No hydronephrosis involving either kidney. Possible nonobstructive 4 mm calcific calculus in the lower pole on the left. --S/P right ureteral stent placement by on 01/15/23 -- No signs of UTI on urinalysis Blood cultures no growth to date --Received IV fluids, Flomax Appreciate urology input Pain control, antiemetics as needed Needs follow-up with urology for stent removal Plan to discharge home today H/O Secondary hyperparathyroidism Vitamin D deficiency On vitamin D supplements per patient Follows with endocrinology as outpatient Plan for reevaluation as outpatient for possible parathyroidectomy GERD H/O Gastric bypass H/O NAFLD Continue home medications Prediabetes outpatient HbA1c of 5.3 Mood disorder Continue home medications DVT Px SCDs,Encourage to ambulate Code Status Full code Disposition Home Total Time Total Time Spent Total Time Spent (In Minutes): 56 minutes Discharge Plan Discharge Items Patient Disposition: Home - Self-Care Reason For Visit: OBS UROPATHY Discharge Diagnosis: Calculus of proximal right ureter Nephrolithiasis Activity: Per Instructions section Exercise/Sports: Gradually increase as tolerated Non-emergency contact: Primary Care Provider and Urologist Call non-emergency contact if: you have any medication questions, your symptoms worsen, your pain is concerning for you and you have a fever Follow-up/Referrals: Lenard Mack MD [Physician] - (The Urology office will call you with a follow up appointment. ) Dimas Doty DO [Primary Care Provider] - (Date & Time 01/21/2023 1:40 PM Provider Dimas Doty DO [facility] ) Diet: Heart Healthy [facility] Attending Provider Instructions: Follow-up with your primary care physician Dr. Marie in 1 week as scheduled Follow-up with your urologist Dr. Mack as recommended --- Final blood cultures are pending at the time of discharge. Follow-up with your physician for results. Seek immediate medical attention if your symptoms reoccur or worsen Please take all medications as instructed on discharge list below. Please call if you have any questions or problems. You can reach a [facility] hospitalist on duty at [facility] 24 hours a day by calling [phone] [facility] Supervisor [employer] Provider Instructions: The surgery you had was ureteroscopy with laser lithotripsy and stent placement. Stone was removed. A stent was left in place with the strings attached. You can remove the stent on 01/17/2023. Please take your dose of antibiotics 1 hour prior to removing the stent. Please take all medications as prescribed and keep all follow-ups as scheduled. Please call our office at [phone] with any questions, concerns or need to reschedule appointments for any reason. We are happy to assist you. Medications: please resume your normal medications as previously prescribed. You have been prescribed a single dose of antibiotics (ciprofloxacin). Take this 1 hour prior to stent removal. For pain, it is ok to take tylenol alternating with ibuprofen. You can also take AZO, which can be purchased [id number] at the drugstore. Be aware this turns your urine a bright orange color. If you are prescribed a stronger medication you can take this according to instructions on the label. What to expect after your ureteroscopy and stone removal procedure: You may notice small pieces of stone or stone dust/gravel in your urine over the next few days. Drink plenty of liquids to help flush your system. You may notice some blood in your urine. As long as you are able to urinate, this is ok. You have a ureteral stent in place - this will need to be removed. As long as the stent is in place, you may see some blood in the urine. You may have pain in your side when you urinate. Strings were left in place on the stent. You can remove the stent on []. To do this, take your antibiotic, then after 1 hour, pull gently on the strings that are coming from your urethra. The stent is approximately 10 inches long. When to call [facility] at [phone]: Fever of 101F or higher Heavy bleeding Pain that is not controlled with medicine Uncontrolled vomiting Problems urinating or inability to urinate Pending Studies at Discharge: Yes Studies:: Blood Cultures Stand-Alone Forms: My [employer], Smoking Cessation Medications and DC Order Prescriptions: New ciprofloxacin HCl [Cipro] 500 mg tablet 500 mg PO ONCE Qty: 1 0RF Rx Instructions: Take 1 hour prior to stent removal phenazopyridine [Pyridium] 100 mg Tablet 100 mg PO TID PRN (Reason: pain) Qty: 30 0RF Continued sertraline 100 mg tablet 150 mg PO QAM Rx Instructions: 1 & 1/2 tablet dose cyclobenzaprine 10 mg tablet 10 mg PO TID PRN (Reason: Pain) buspirone 10 mg tablet 10 mg PO [facility] tamsulosin [Flomax] 0.4 mg capsule 0.4 mg PO QAM omeprazole 20 mg capsule,delayed release(DR/EC) 20 mg PO QAM ondansetron 4 mg tablet,disintegrating 4 mg translingual Q8 PRN (Reason: Nausea) ferrous sulfate 325 mg (65 mg iron) Tablet 325 mg PO [facility] Bariatric Multivitamins 45 mg iron- 800 mcg-120 mcg Capsule 1 cap PO DAILY Discharge Orders: Discharge Order (Routine); Ordered 01/16/23 Ordered By: Carl Momin Admission Data Admit Date/Time: 01/14/23 22:29 Attending Provider: Carl Momin Admit Provider: Pastor Ching Primary Care Provider: Dimas Doty Other Providers: Pastor Ching ; Lenard Mack
[2023-01-21 20:06] LABS: Component 2 DNR; Source URETERAL STONE
== END 2023-01-16 13:06 | disposition home or self-care (01) | DRG 661 ==
LOC: ED 16:53 → SUATTDRO 22:29 → 3E 22:29

== ENCOUNTER 2023-03-08 22:09 | Inpatient (IN) ==
[2023-03-08 22:52] LABS: Basophils # (auto) 0.09 K/uL (0.00-0.20); Basophils % (auto) 1.4 %; Eosinophils # (auto) 0.06 K/uL (0.00-0.50); Eosinophils % (auto) 0.9 %; Hematocrit (blood only) 37.1 % (37.0-47.0); Hemoglobin 12.2 g/dl (12.0-16.0); Immature Granulocytes # (auto) 0.02 K/uL (0.01-0.20); Immature Granulocytes % (auto) 0.3 %; Lymphocytes # (auto) 2.18 K/uL (1.20-3.40); Lymphocytes % (auto) 33.4 %; Mean Corpuscular Hemoglobin 29.6 pg (25.0-34.0); Mean Corpuscular Hgb Conc 32.9 g/dL (32.0-36.0); Mean Platelet Volume 9.3 fL (9.4-12.4); Monocytes # (auto) 0.53 K/uL (0.11-0.59); Monocytes % (auto) 8.1 %; Neutrophils # (auto) 3.64 K/uL (1.40-6.50); Neutrophils % (auto) 55.9 %; Platelet Count 338 K/uL (130-400); RDW Coefficient of Variation 13.2 % (11.5-14.5); RDW Standard Deviation 43.6 fL (36.4-46.3); Red Blood Count 4.12 M/uL (4.20-5.40); White Blood Count 6.52 K/ul (4.8-10.8)
[2023-03-08 22:59] LABS: Appearance Urine Turbid (Clear); Bacteria Urine Automated 2+ (Negative); Bilirubin Urine Negative (Negative); Blood Urine 3+ (Negative); Color Urine Yellow; Epithelial Cell Urine Auto >30 /lpf (0-5); Glucose Urine UA Negative (Negative); Ketones Urine Negative (Negative); Leukocyte Esterase Urine 2+ (Negative); Nitrite Urine Negative (Negative); Protein Urine 1+ (Negative); Specific Gravity Urine 1.014 (1.000-1.030); Urobilinogen Urine Negative (Negative); WBC Urine Automated >30 /hpf (0-5); pH Urine 5.5 (4.5-7.5)
[2023-03-08] MEDS ORDERED: ONDANSETRON INJ 2 MG/ML 2 ML VIAL IV STA (23:02)
[2023-03-08] MEDS ORDERED: SODIUM CHLORIDE 0.9% 1,000 ML IV ONE ×2 (23:02→23:59)
[2023-03-08] MEDS ORDERED: KETOROLAC TROMETHAMINE 15 MG/ML VIAL IV ONE (23:02)
[2023-03-08 23:10] LABS: Albumin Level 4.6 gm/dl (3.4-5.0); BUN Creatinine Ratio 13.2 (10-20); Bilirubin,Total 0.3 mg/dl (0.2-1.0); Creatinine Clr Calc Pharmacy 123.6 ml/min; Est GFR (Non-African American) 105.3 ml/min; Globulin 2.3 gm/dl (2.5-4.0); Potassium 3.7 mmol/L (3.5-5.1); Total Protein 6.9 gm/dl (6.0-8.3)
[2023-03-08 23:15] LABS: Calcium Oxalate Crystals Urine Present (None Prsent)
[2023-03-08 23:17] LABS: Cast Urine Automated 0 /lpf (0-5); RBC Urine Automated >30 /hpf (0-4)
[2023-03-08] MEDS ORDERED: HYDROmorphone INJ 1 MG/ML SYRINGE IV STA (23:57)
[2023-03-08] MEDS ORDERED: cefTRIAXone SODIUM 2,000 MG/70 ML BAG IV STA (23:59)
[2023-03-09] MEDS ORDERED: HYDROmorphone INJ 1 MG/ML SYRINGE IV STA ×2 (01:17→02:41)
[2023-03-09] MEDS ORDERED: ONDANSETRON INJ 2 MG/ML 2 ML VIAL IV STA (02:41)
--- NOTE | 2023-03-09 02:55 | Emergency Department Note ---
History of Present Illness General Chief complaint: Flank Pain Stated complaint: LT FLANK PAIN Time Seen by Provider: 03/08/23 22:47 Source: patient, RN notes reviewed and old records reviewed Mode of arrival: ambulatory Limitations: no limitations History of Present Illness Maximum Pain Intensity: 7 This patient is a 28-year-old female who comes in complaint of left flank pain she does have a history of multiple kidney stones. She was in the hospital about a month ago and had a stone removed and stent placed on the left. It was noted on CAT scan that she has multiple stones within the kidneys on both at the time. She said this started the last couple days is gotten worse she has had nausea and intermittent significant pain denies she tried Aleve Phenergan and Flomax at home. No fall or trauma no numbness or weakness. Home Medications Medication Instructions Recorded Confirmed Type buspirone 10 mg tablet 10 mg PO BID 03/09/23 03/09/23 History cholecalciferol (vitamin D3) 125 125 mcg PO DAILY 03/09/23 03/09/23 History mcg (5,000 unit) capsule cyclobenzaprine 10 mg tablet 10 mg PO TID PRN Pain 03/09/23 03/09/23 History [id number] 45 mg-folic 1 cap PO DAILY 03/09/23 03/09/23 History acid 800 mcg-vit K 120 mcg capsule (Bariatric Multivitamins) omeprazole 20 mg capsule,delayed 20 mg PO DAILY 03/09/23 03/09/23 History release sertraline 100 mg tablet 150 mg PO DAILY 03/09/23 03/09/23 History cephalexin 500 mg capsule 500 mg PO Q6H #10 caps 03/10/23 Rx hydrochlorothiazide 12.5 mg tablet 12.5 mg PO DAILY #30 tabs 03/10/23 Rx oxybutynin chloride 5 mg tablet 5 mg PO BIDM PRN bladder spasms 03/10/23 Rx #14 tabs phenazopyridine 200 mg tablet 200 mg PO BID PRN urinary 03/10/23 Rx (Pyridium) discomfort #14 tabs tamsulosin 0.4 mg capsule 0.4 mg PO DAILY #14 caps 03/10/23 Rx Allergies Allergy/AdvReac Type Severity Reaction Status Date / Time sulfamethoxazole Allergy Intermediate HIVES Verified 01/06/23 16:58 trimethoprim Allergy Intermediate HIVES Verified 01/06/23 16:58 morphine Allergy Mild Hives Verified 01/06/23 16:58 Past Med/Surg History Medical History Depression Diverticulitis Hx of perforated bowel >10yrs ago -s/p IV antibiotics GERD (gastroesophageal reflux disease) Kidney stones Surgical History History of appendectomy 03/16/19: Grade 2 view, Veloz 2, ETT 7.5 atraumatic x 1. History of cholecystectomy 06/10/19: Grade 1 view, MAC 3, ETT 7.5 atraumatic x 1. History of colonoscopy History of Otilia-en-Y gastric bypass 6 months ago @ [facility] History of wisdom tooth extraction Hx of cystoscopy w/ stent-04/2022 [facility] PONV (postoperative nausea and vomiting) Previous section Status post laparoscopic procedure REMOVED uterine surface endometriotic tissue Family History Uncle Diabetes Mother Kidney stones Breast cancer Hx of cholecystectomy Hypertension Father Hx of cholecystectomy Other No family history of adverse response to anesthesia Social History Smoking Status: Never smoker Second Hand Exposure: No; Do You Dip or Chew Tobacco: No; Hx Alcohol Use: Yes Alcohol type: wine Hx Substance Use: No Preferred Language: Indian Communication Ability: Effective 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 Beliefs That Will Affect Care: None marital status: Current Living Situation: Family Current Living Situation Comment: Patient lives alone with son Other Information That Helps Us Care for You: No Feels Safe at Home: Yes Safety Concerns: Feels Safe At This Time Assistive Devices: None Review of Systems A total of 10 systems reviewed and were otherwise negative Physical Exam Vital Signs Vital Signs - 24 hr 03/08/23 22:10 03/09/23 01:20 Temperature 36.9 C Temperature Source Temporal Artery Scan Pulse Rate 121 H Pulse Rate [Finger] 87 Pulse Rhythm [Finger] Regular Pulse Strength [Finger] Normal Respiratory Rate 19 16 Respiratory Effort / Characteristics Non-Labored Spontaneous Non-Labored Spontaneous Respiratory Depth Normal Normal Respiratory Pattern Regular Regular Blood Pressure 135/86 Blood Pressure [Right Arm] 130/84 Blood Pressure Mean 102 Blood Pressure Mean [Right Arm] 99 Pulse Oximetry 100 98 Oxygen Delivery Method Room Air Room Air Sepsis Recent Fever Within 48 Hours No Sepsis New/Unexplained Change in Mental Status N/A Sepsis Action Taken by Nursing No Action Required General: Well developed well nourished young female who appears mildly uncomfortable but in no acute respiratory distress, breathing comfortably on room air. Normal speech HEENT: Normal cephalic atraumatic. Pupils are equal round and reactive to light. Extraocular movements are intact. Oropharynx is pink with moist mucous membranes. No swelling of the mouth lips or tongue. Neck: Supple with a midline trachea. No meningeal signs or stiffness, no JVD or bruits. No Stridor. Chest: Clear to auscultation bilaterally. No wheezes or rhonchi. No increased work of breathing. Heart: Regular rate and rhythm without murmurs or gallops. Abdomen: Soft nontender, nondistended without rebound guarding or rigidity. Extremities: No cyanosis clubbing or edema. No calf tenderness or assymetry Spine/Back. Non tender to palpation. No CVA tenderness Skin: Good turgor without rashes. Neurologic exam: Cranial nerves two through 12 are intact. Motor and sensation are intact and symmetrical throughout. Course Administered Medications Acetaminophen (Acetaminophen 500 Mg Tab) 1,000 mg PO Q8H [facility] Stop: 04/08/23 08:59 Last Admin: 03/10/23 07:35 Dose: 1,000 mg Documented By: Admin: 03/10/23 00:38 Dose: 1,000 mg Documented By: Admin: 03/09/23 18:01 Dose: 1,000 mg Documented By: Admin: 03/09/23 09:24 Dose: 1,000 mg Documented By: MONIQUE Buspirone HCl (Buspirone 5 Mg Tab) 10 mg PO BID [facility] Stop: 04/08/23 08:59 Last Admin: 03/10/23 07:34 Dose: 10 mg Documented By: Admin: 03/09/23 20:05 Dose: 10 mg Documented By: Admin: 03/09/23 08:22 Dose: Not Given Documented By: MONIQUE Hydromorphone HCl (Hydromorphone Inj 0.5 Mg/0.5 Ml Syr) 0.5 mg IV Q3H PRN PRN Reason: Severe Pain (Scale 7, 8, 9,10) Stop: 03/23/23 05:28 Last Admin: 03/10/23 04:05 Dose: 0.5 mg Documented By: Admin: 03/09/23 22:37 Dose: 0.5 mg Documented By: Admin: 03/09/23 19:28 Dose: 0.5 mg Documented By: Admin: 03/09/23 13:16 Dose: 0.5 mg Documented By: Admin: 03/09/23 07:32 Dose: 0.5 mg Documented By: MONIQUE Ceftriaxone Sodium 2,000 mg/ (Dextrose) 70 mls @ 100 mls/hr IV Q24H CHELSEY; Protocol Stop: 03/19/23 23:29 Last Infusion: 03/09/23 23:36 Dose: 0 mls/hr Documented By: Admin: 03/09/23 22:37 Dose: 100 mls/hr Documented By: MICHELLE Multivitamins (Multivitamin Tab) 1 tab PO DAILY CHELSEY Stop: 04/08/23 08:59 Last Admin: 03/10/23 07:34 Dose: 1 tab Documented By: Admin: 03/09/23 08:20 Dose: 1 tab Documented By: MONIQUE Ondansetron HCl (Ondansetron Inj 2 Mg/Ml 2 Ml Vial) 4 mg IV Q6H PRN PRN Reason: Nausea Stop: 04/08/23 05:28 Last Admin: 03/09/23 22:37 Dose: 4 mg Documented By: Admin: 03/09/23 08:50 Dose: 4 mg Documented By: MONIQUE Oxycodone HCl (Oxycodone Hcl Ir 5 Mg Tab (Immediate Release)) 5 - 10 mg PO Q4H PRN PRN Reason: Mod-Sev Pain (Scale 4-10) Stop: 03/23/23 05:55 Last Admin: 03/10/23 12:06 Dose: 10 mg Documented By: Admin: 03/10/23 07:35 Dose: 10 mg Documented By: Admin: 03/10/23 02:53 Dose: 10 mg Documented By: Admin: 03/09/23 21:49 Dose: 10 mg Documented By: Admin: 03/09/23 17:44 Dose: 10 mg Documented By: MONIQUE Pantoprazole Sodium (Pantoprazole 40 Mg Tab) 40 mg PO DAILY CHELSEY; Protocol Stop: 04/08/23 08:59 Last Admin: 03/10/23 07:34 Dose: 40 mg Documented By: Admin: 03/09/23 08:19 Dose: 40 mg Documented By: TROY Sertraline HCl (Sertraline Hcl 50 Mg Tablet) 150 mg PO DAILY CHELSEY Stop: 04/08/23 08:59 Last Admin: 03/10/23 07:34 Dose: 150 mg Documented By: Admin: 03/09/23 08:19 Dose: 150 mg Documented By: TROY Tamsulosin HCl (Tamsulosin Hcl 0.4 Mg Cap) 0.4 mg PO DAILY [facility] Stop: 04/08/23 08:59 Last Admin: 03/10/23 07:34 Dose: 0.4 mg Documented By: Admin: 03/09/23 08:20 Dose: 0.4 mg Documented By: TROY Vitamin D (Cholecalciferol 5,000 Units 125 Mcg Tab) 5,000 units PO DAILY CHELSEY Stop: 04/08/23 08:59 Last Admin: 03/10/23 07:34 Dose: 5,000 units Documented By: Admin: 03/09/23 08:20 Dose: 5,000 units Documented By: TROY Discontinued Medications Diatrizoate Meglumine (Diatrizoate Meglumine 30% 100ml Vial) 20 ml INSTIL ONCE ONE Stop: 03/09/23 12:18 Last Admin: 03/09/23 12:18 Dose: 20 ml Documented By: [id number] Fentanyl Citrate (Fentanyl Citrate Pf 100 Mcg/2 Ml Vial) 25 mcg IV Q5M PRN PRN Reason: PACU Use Only-Pain Stop: 03/09/23 18:57 Last Admin: 03/09/23 12:40 Dose: 25 mcg Documented By: Admin: 03/09/23 12:35 Dose: 25 mcg Documented By: Admin: 03/09/23 12:30 Dose: 25 mcg Documented By: Admin: 03/09/23 12:25 Dose: 25 mcg Documented By: JESÚS Fluconazole (Fluconazole 50 Mg Tab) 150 mg PO NOW ONE Stop: 03/10/23 14:00 Last Admin: 03/10/23 14:58 Dose: 150 mg Documented By: JERSEY Hydromorphone HCl (Hydromorphone Inj 1 Mg/Ml Syringe) 1 mg IV NOW STA Stop: 03/08/23 23:58 Last Admin: 03/09/23 00:01 Dose: 1 mg Documented By: ALECIA Hydromorphone HCl (Hydromorphone Inj 1 Mg/Ml Syringe) 1 mg IV NOW STA Stop: 03/09/23 01:18 Last Admin: 03/09/23 01:23 Dose: 1 mg Documented By: SILVESTRE Hydromorphone HCl (Hydromorphone Inj 1 Mg/Ml Syringe) 1 mg IV NOW STA Stop: 03/09/23 02:42 Last Admin: 03/09/23 02:46 Dose: 1 mg Documented By: JEFF Hydromorphone HCl (Hydromorphone Inj 0.5 Mg/0.5 Ml Syr) 0.5 mg IV NOW STA Stop: 03/09/23 03:58 Last Admin: 03/09/23 04:12 Dose: 0.5 mg Documented By: ALECIA Hydromorphone HCl (Hydromorphone Inj 0.5 Mg/0.5 Ml Syr) 0.5 mg IV NOW STA Stop: 03/09/23 15:57 Last Admin: 03/09/23 16:10 Dose: 0.5 mg Documented By: MONIQUE Sodium Chloride (Nss) 1,000 mls @ 999 mls/hr IV .Q1H1M ONE Stop: 03/09/23 00:02 Last Infusion: 03/09/23 00:35 Dose: 0 mls/hr Documented By: Admin: 03/08/23 23:34 Dose: 999 mls/hr Documented By: ALECIA Ceftriaxone Sodium (Rocephin) 2,000 mg in 70 mls @ 140 mls/hr IV NOW STA Stop: 03/09/23 00:28 Last Infusion: 03/09/23 01:39 Dose: 0 mls/hr Documented By: Admin: 03/09/23 01:04 Dose: 140 mls/hr Documented By: ALECIA Sodium Chloride (Nss) 1,000 mls @ 999 mls/hr IV .Q1H1M ONE Stop: 03/09/23 00:59 Last Infusion: 03/09/23 02:50 Dose: 0 mls/hr Documented By: Admin: 03/09/23 01:04 Dose: 999 mls/hr Documented By: ALECIA Sodium Chloride (Nss) 1,000 mls @ 125 mls/hr IV .Q8H [facility] Stop: 04/08/23 05:28 Last Infusion: 03/10/23 09:31 Dose: 0 mls/hr Documented By: Admin: 03/10/23 07:50 Dose: 125 mls/hr Documented By: Infusion: 03/10/23 07:50 Dose: 125 mls/hr Documented By: Admin: 03/10/23 05:05 Dose: Not Given Documented By: Admin: 03/10/23 00:38 Dose: 125 mls/hr Documented By: Infusion: 03/10/23 00:09 Dose: 125 mls/hr Documented By: Admin: 03/09/23 16:09 Dose: 125 mls/hr Documented By: Infusion: 03/09/23 16:09 Dose: 125 mls/hr Documented By: Infusion: 03/09/23 13:15 Dose: 125 mls/hr Documented By: Infusion: 03/09/23 10:17 Dose: 0 mls/hr Documented By: [facility] Admin: 03/09/23 05:30 Dose: 125 mls/hr Documented By: RADHA Ciprofloxacin (Cipro / D5w) 400 mg in 200 mls @ 100 mls/hr IV PREOP CHELSEY; Protocol Stop: 03/10/23 10:09 Last Admin: 03/10/23 05:04 Dose: Not Given Documented By: Infusion: 03/09/23 13:30 Dose: 0 mls/hr Documented By: Admin: 03/09/23 11:30 Dose: 100 mls/hr Documented By: ALECIA(2) Ketorolac Tromethamine (Ketorolac Tromethamine 15 Mg/Ml Vial) 15 mg IV NOW ONE Stop: 03/08/23 23:03 Last Admin: 03/08/23 23:30 Dose: 15 mg Documented By: ALECIA Ondansetron HCl (Ondansetron Inj 2 Mg/Ml 2 Ml Vial) 4 mg IV NOW STA Stop: 03/08/23 23:03 Last Admin: 03/08/23 23:31 Dose: 4 mg Documented By: ALECIA Ondansetron HCl (Ondansetron Inj 2 Mg/Ml 2 Ml Vial) 4 mg IV NOW STA Stop: 03/09/23 02:42 Last Admin: 03/09/23 02:46 Dose: 4 mg Documented By: JEFF Oxybutynin Chloride (Oxybutynin Chloride 5 Mg Tab) 5 mg PO BID PRN PRN Reason: Bladder Pain/Spasms Stop: 04/08/23 20:59 Last Admin: 03/10/23 08:45 Dose: 5 mg Documented By: Admin: 03/09/23 20:05 Dose: 5 mg Documented By: Admin: 03/09/23 15:09 Dose: 5 mg Documented By: MONIQUE Oxycodone HCl (Oxycodone Hcl Ir 5 Mg Tab (Immediate Release)) 5 mg PO Q4H PRN PRN Reason: Mod-Sev Pain (Scale 4-10) Stop: 03/23/23 05:55 Last Admin: 03/09/23 13:53 Dose: 5 mg Documented By: Admin: 03/09/23 06:17 Dose: 5 mg Documented By: RADHA Oxycodone HCl (Oxycodone Hcl Ir 5 Mg Tab (Immediate Release)) 5 mg PO NOW STA Stop: 03/09/23 08:46 Last Admin: 03/09/23 09:02 Dose: 5 mg Documented By: MONIQUE Phenazopyridine HCl (Phenazopyridine Hcl 200 Mg Tab) 200 mg PO BID PRN PRN Reason: Bladder pain Stop: 03/11/23 14:41 Last Admin: 03/10/23 12:04 Dose: 200 mg Documented By: Admin: 03/09/23 15:09 Dose: 200 mg Documented By: TROY Medical Decision Making Differential Diagnosis Acute renal colic, electrolyte or metabolic abnormality, UTI, pyelonephritis, intra-abdominal process, diverticulitis, Medical Records Attestation: I reviewed the patient's medical records. Home Medications Current Medication List: was personally reviewed by me Laboratory Data Attestation: I reviewed the patient's lab results. 03/08/23 22:20 03/08/23 22:25 Lab Results 03/08/23 03/08/23 03/08/23 Range/Units 22:17 22:20 22:20 WBC 6.52 (4.8-10.8) K/ul RBC 4.12 L (4.20-5.40) M/uL Hgb 12.2 (12.0-16.0) g/dl Hct 37.1 (37.0-47.0) % MCV 90.0 (80.0-100.0) fL MCH 29.6 (25.0-34.0) pg MCHC 32.9 (32.0-36.0) g/dL RDW Std Deviation 43.6 (36.4-46.3) fL RDW Coeff of Coral 13.2 (11.5-14.5) % Plt Count 338 (130-400) K/uL MPV 9.3 L (9.4-12.4) fL Immature Gran % (Auto) 0.3 % Neut % (Auto) 55.9 % Lymph % (Auto) 33.4 % [place] % (Auto) 8.1 % Eos % (Auto) 0.9 % Baso % (Auto) 1.4 % Neut # (Auto) 3.64 (1.40-6.50) K/uL Lymph # (Auto) 2.18 (1.20-3.40) K/uL [place] # (Auto) 0.53 (0.11-0.59) K/uL Eos # (Auto) 0.06 (0.00-0.50) K/uL Baso # (Auto) 0.09 (0.00-0.20) K/uL Immature Gran # (Auto) 0.02 (0.01-0.20) K/uL Sodium (136-145) mmol/L Potassium (3.5-5.1) mmol/L Chloride (98-107) mmol/L Carbon Dioxide (21-32) mmol/L Anion Gap (3-11) BUN (6-23) mg/dl Creatinine (0.6-1.2) mg/dl Est Cr Clr Drug Dosing ml/min Est GFR ( Amer) ml/min Est GFR (Non-Af Amer) ml/min BUN/Creatinine Ratio (10-20) Glucose (70-99(Fasting)) mg/dl Calcium (8.6-10.3) mg/dl Total Bilirubin (0.2-1.0) mg/dl AST (13-39) U/L ALT (7-52) U/L Alkaline Phosphatase (34-104) U/L Total Protein (6.0-8.3) gm/dl Albumin (3.4-5.0) gm/dl Globulin (2.5-4.0) gm/dl Albumin/Globulin Ratio (0.9-2) Urine Color Yellow Urine Appearance Turbid A (Clear) Urine pH 5.5 (4.5-7.5) Ur Specific [place] 1.014 (1.000-1.030) Urine Protein 1+ H (Negative) Urine Glucose (UA) Negative (Negative) Urine Ketones Negative (Negative) Urine Blood 3+ H (Negative) Urine Nitrite Negative (Negative) Urine Bilirubin Negative (Negative) Urine Urobilinogen Negative (Negative) Ur Leukocyte Esterase 2+ H (Negative) Urine WBC (Auto) >30 H (0-5) /hpf Urine RBC (Auto) >30 H (0-4) /hpf U Hyaline Cast (Auto) 0 (0-5) /lpf U Epithel Cells (Auto) >30 H (0-5) /lpf Urine Bacteria (Auto) 2+ H (Negative) Urine Crystals Not Reportable Calcium Oxalate Crystal Present A (None Prsent) Urine Yeast Budding A (None Prsent) POC Ur Test NEG (NEG) 03/08/23 Range/Units 22:25 WBC (4.8-10.8) K/ul RBC (4.20-5.40) M/uL Hgb (12.0-16.0) g/dl Hct (37.0-47.0) % MCV (80.0-100.0) fL MCH (25.0-34.0) pg MCHC (32.0-36.0) g/dL RDW Std Deviation (36.4-46.3) fL RDW Coeff of Coral (11.5-14.5) % Plt Count (130-400) K/uL MPV (9.4-12.4) fL Immature Gran % (Auto) % Neut % (Auto) % Lymph % (Auto) % [place] % (Auto) % Eos % (Auto) % Baso % (Auto) % Neut # (Auto) (1.40-6.50) K/uL Lymph # (Auto) (1.20-3.40) K/uL [place] # (Auto) (0.11-0.59) K/uL Eos # (Auto) (0.00-0.50) K/uL Baso # (Auto) (0.00-0.20) K/uL Immature Gran # (Auto) (0.01-0.20) K/uL Sodium 140 (136-145) mmol/L Potassium 3.7 (3.5-5.1) mmol/L Chloride 107 (98-107) mmol/L Carbon Dioxide 28 (21-32) mmol/L Anion Gap 5 (3-11) BUN 10 (6-23) mg/dl Creatinine 0.76 (0.6-1.2) mg/dl Est Cr Clr Drug Dosing 123.6 ml/min Est GFR ( Amer) 122.0 ml/min Est GFR (Non-Af Amer) 105.3 ml/min BUN/Creatinine Ratio 13.2 (10-20) Glucose 86 (70-99(Fasting)) mg/dl Calcium 9.0 (8.6-10.3) mg/dl Total Bilirubin 0.3 (0.2-1.0) mg/dl AST 14 (13-39) U/L ALT 9 (7-52) U/L Alkaline Phosphatase 52 (34-104) U/L Total Protein 6.9 (6.0-8.3) gm/dl Albumin 4.6 (3.4-5.0) gm/dl Globulin 2.3 L (2.5-4.0) gm/dl Albumin/Globulin Ratio 2.0 (0.9-2) Urine Color Urine Appearance (Clear) Urine pH (4.5-7.5) Ur Specific [place] (1.000-1.030) Urine Protein (Negative) Urine Glucose (UA) (Negative) Urine Ketones (Negative) Urine Blood (Negative) Urine Nitrite (Negative) Urine Bilirubin (Negative) Urine Urobilinogen (Negative) Ur Leukocyte Esterase (Negative) Urine WBC (Auto) (0-5) /hpf Urine RBC (Auto) (0-4) /hpf U Hyaline Cast (Auto) (0-5) /lpf U Epithel Cells (Auto) (0-5) /lpf Urine Bacteria (Auto) (Negative) Urine Crystals Calcium Oxalate Crystal (None Prsent) Urine Yeast (None Prsent) POC Ur Test (NEG) Imaging Data Attestation: I personally reviewed and interpreted this imaging study as follows: My Impression: KUBI do not see any definite stones or bowel obstruction Radiologist's Impression: KUB X-Ray 03/08/23 23:02 KUB HISTORY: Follow-up study in a patient with history of kidney stones left sided kidney COMPARISON: KUB 01/14/2023 FINDINGS: Nonobstructive bowel gas pattern. Cholecystectomy. Renal shadows are partially obscured by bowel gas. Moderate fecal retention of the right any colon. No renal calculi. No ureteral calculi. No pneumoperitoneum or pneumatosis. No fracture. IMPRESSION: No renal or ureteral calculi identified by radiography. ACT 112: Negative or not required by law. The above report was generated using voice recognition software. It may contain grammatical, syntax or spelling errors. Electronically signed by: Jorge Pineda M.D. 03/09/2023 7:13 AM Renal Ultrasound 03/08/23 23:02 Exam(s): US RENAL EXAM: US Retroperitoneal Limited, Renal CLINICAL HISTORY: Reason for exam: eval fopr obst uropathy on left. TECHNIQUE: Real-time limited ultrasound of the retroperitoneum with image documentation. COMPARISON: 01/14/2023. FINDINGS: Right kidney: The right kidney measures 12.1 x 5.8 x 5.6 cm. There is mild prominence of the right renal pelvis with questionable mild thickening of the wall. There is a 4 mm echogenicity in the lower pole of the right kidney, cannot exclude a small stone. There is a round anechoic structure within the right upper renal pole measuring 1.3 x 1.4 x 1.6 cm consistent with a simple cyst. Left kidney: The left kidney measures 11.2 x 6.2 x 5.9 cm. There is mild fullness of the left renal collecting system suggestive of mild hydronephrosis. There is mild distention of the proximal left ureter. There is a small echogenic focus within the proximal left ureter measuring 6.3 mm, cannot exclude a small stone. Small echogenicity within the left renal sinus which could represent volume averaging from sinus fat versus tiny stones, largest measuring 7 mm. Bladder: Urinary bladder is unremarkable with visualization of bilateral shoulder jets. IMPRESSION: 1. Mild left hydronephrosis with possible small stone in the proximal left ureter measuring 6.3 mm. 2. Volume averaging from renal sinus fat versus tiny stones within the left kidney. 3. Possible tiny stone versus artifact measuring 4 mm within the right kidney. Simple cyst within the right upper renal pole. Possible mild right pelviectasis with no distinct hydronephrosis. 4. Cannot access thickening of the wall to the right renal pelvis versus artifact which may indicate sequela of previous inflammatory process. Clinical correlation recommended. 5. If indicated, these findings may be further assessed with CT urogram with and without contrast of the abdomen and pelvis. Electronically signed by: Angelita Finn MD 03/09/23 03:[address] [facility] Narrative This patient comes in as scribed above she is having left flank pain I did see her in triage. She is having left flank pain consistent with her previous kidney stone she had multiple kidney stones. IV X established hydrated with 1 L IV normal saline bolus, she was given Toradol 15 mg IV and Zofran 4 mg IV for nausea. She did require multiple doses of IV Dilaudid and despite this was still having significant mount of pain. Her urinalysis does suggest infection. She has no fever white count however. But given this I did give her some Rocephin 1 g IV. I did a KUB x-ray as well as an ultrasound the ultrasound shows a what appears to be a proximal stone. Given her ongoing pain and possible infection, I do think she needs to be admitted for further treatment and evaluation. I discussed the case in consultation with Dr. Ye, who saw the patient in the ER for these measures. test was negative. Impression & Plan Renal colic on left side, Nephrolithiasis, Hydronephrosis, left, Not currently , UTI (urinary tract infection) Discharge Plan Visit Data Chief Complaint: Flank Pain Stated Complaint: LT FLANK PAIN ED Provider: Milo Perales Discharge Problem: Renal colic on left side, Nephrolithiasis, Hydronephrosis, left, Not currently , UTI (urinary tract infection) Patient Disposition: Admitted As Inpatient Discharge Instructions Interventions: ED Discharge Assessment Last Done: 03/09/23 05:18
--- NOTE | 2023-03-09 03:01 | Ultrasound Report ---
Exam(s): US RENAL EXAM: US Retroperitoneal Limited, Renal CLINICAL HISTORY: Reason for exam: eval fopr obst uropathy on left. TECHNIQUE: Real-time limited ultrasound of the retroperitoneum with image documentation. COMPARISON: 01/14/2023. FINDINGS: Right kidney: The right kidney measures 12.1 x 5.8 x 5.6 cm. There is mild prominence of the right renal pelvis with questionable mild thickening of the wall. There is a 4 mm echogenicity in the lower pole of the right kidney, cannot exclude a small stone. There is a round anechoic structure within the right upper renal pole measuring 1.3 x 1.4 x 1.6 cm consistent with a simple cyst. Left kidney: The left kidney measures 11.2 x 6.2 x 5.9 cm. There is mild fullness of the left renal collecting system suggestive of mild hydronephrosis. There is mild distention of the proximal left ureter. There is a small echogenic focus within the proximal left ureter measuring 6.3 mm, cannot exclude a small stone. Small echogenicity within the left renal sinus which could represent volume averaging from sinus fat versus tiny stones, largest measuring 7 mm. Bladder: Urinary bladder is unremarkable with visualization of bilateral shoulder jets. IMPRESSION: 1. Mild left hydronephrosis with possible small stone in the proximal left ureter measuring 6.3 mm. 2. Volume averaging from renal sinus fat versus tiny stones within the left kidney. 3. Possible tiny stone versus artifact measuring 4 mm within the right kidney. Simple cyst within the right upper renal pole. Possible mild right pelviectasis with no distinct hydronephrosis. 4. Cannot access thickening of the wall to the right renal pelvis versus artifact which may indicate sequela of previous inflammatory process. Clinical correlation recommended. 5. If indicated, these findings may be further assessed with CT urogram with and without contrast of the abdomen and pelvis. Electronically signed by: Angelita Finn MD 03/09/23 03:00 AM
--- NOTE | 2023-03-09 03:50 | History & Physical Report ---
Date of Service March 09, 2023 Assessment & Plan (1) Renal colic on left side: Plan: 28-year-old female with past medical history of recurrent kidney stones since last 2 years thought to be from hyperparathyroidism, hyperparathyroidism thought to be from hypo vitamin D, history of gastric bypass, history of NAFLD, prediabetes, mood disorder, presents with with severe left flank pain since last couple of days secondary to kidney stone Left renal colic Renal ultrasound shows. Mild left hydronephrosis with possible small stone in the proximal left ureter measuring 6.3 mm. Also possible tiny stone 4 mm within the right kidney History of recurrent kidney stone Thought to be from hyperparathyroidism Pain control N.p.o. IV fluids Urology consult in a.m. UTI Had episode of hematuria today Rocephin We will follow cultures Hypo vitamin D On supplement We will follow the levels Hyperparathyroidism Follows with endocrinology at [facility] GERD On omeprazole History of gastric bypass surgery History of NAFLD Continue home medications Mood disorder On Zoloft and buspirone DVT prophylax SCDs Disposition med/surg Full code History of Present Illness Chief Complaint: Left renal colic Primary Care Provider: Dimas Doty DO 28-year-old female with past medical history of recurrent kidney stones since last 2 years thought to be from hyperparathyroidism, hyperparathyroidism thought to be from hypo vitamin D, history of gastric bypass, history of NAFLD, prediabetes, mood disorder, presents with with severe left flank pain since last couple of days. Today she also had hematuria which prompted her to come to the ER. Also having burning micturition. Had nausea. No fevers. No chest pain or shortness of breath. No cough. No headaches. No runny nose or sore throat. Currently resting comfortable hemodynamic stable. Past medical history as mentioned above Past surgical history. Colonoscopy, cystoscopy ureter/ with lithotripsy on the right side in 2020, EGD, exploration of abdomen for endometriosis, laparoscopic procedure of the liver, laparoscopic gastric Otilia-en-Y bypass in September 2021, laparoscopic cholecystectomy, laparoscopic appendectomy. Social history. . No smoking. No alcohol use. No drug use. Family history. Mother had breast cancer. Hypertension. Endometriosis. Aunt has diabetes. Uncle has diabetes. Maternal grandmother had breast cancer and heart disorder and thyroid disorder. Maternal grandfather heart disorder. Ontiveros rnal grandfather heart disorder. Maternal grandfather had lung disorder work- related. Allergies Allergy/AdvReac Type Severity Reaction Status Date / Time sulfamethoxazole Allergy Intermediate HIVES Verified 01/06/23 16:58 trimethoprim Allergy Intermediate HIVES Verified 01/06/23 16:58 morphine Allergy Mild Hives Verified 01/06/23 16:58 Home Medications Medication Instructions Recorded Confirmed Type buspirone 10 mg tablet 10 mg PO BID 03/09/23 03/09/23 History cholecalciferol (vitamin D3) 125 125 mcg PO DAILY 03/09/23 03/09/23 History mcg (5,000 unit) capsule cyclobenzaprine 10 mg tablet 10 mg PO TID PRN Pain 03/09/23 03/09/23 History gipbqjih-igzkotdp-jaao 45 mg-folic 1 cap PO DAILY 03/09/23 03/09/23 History acid 800 mcg-vit K 120 mcg capsule (Bariatric Multivitamins) omeprazole 20 mg capsule,delayed 20 mg PO DAILY 03/09/23 03/09/23 History release sertraline 100 mg tablet 150 mg PO DAILY 03/09/23 03/09/23 History tamsulosin 0.4 mg capsule 0.4 mg PO DAILY 03/09/23 03/09/23 History Past Med/Surg History Medical History Depression Diverticulitis Hx of perforated bowel >10yrs ago -s/p IV antibiotics GERD (gastroesophageal reflux disease) Kidney stones Surgical History History of appendectomy 03/16/19: Grade 2 view, Veloz 2, ETT 7.5 atraumatic x 1. History of cholecystectomy 06/10/19: Grade 1 view, MAC 3, ETT 7.5 atraumatic x 1. History of colonoscopy History of [place]ia-en[place] [facility] [place] of wisdom tooth extraction Hx of cystoscopy w/ stent-04/2022 [facility] PONV (postoperative nausea and vomiting) Previous section Status post laparoscopic procedure REMOVED uterine surface endometriotic tissue Family History Uncle Diabetes Mother Kidney stones Breast cancer Hx of cholecystectomy Hypertension Father Hx of cholecystectomy Other No family history of adverse response to anesthesia Social History Smoking Status: Never smoker Second Hand Exposure: No; Do You Dip or Chew Tobacco: No; Hx Alcohol Use: Yes Alcohol type: wine Hx Substance Use: No Preferred Language: Montenegrin Communication Ability: Effective Computer Equipment Installer Required: No Beliefs That Will Affect Care: None marital status: Current Living Situation: Family Current Living Situation Comment: Patient lives alone with son Other Information That Helps Us Care for You: No Feels Safe at Home: Yes Safety Concerns: Feels Safe At This Time Assistive Devices: Contacts Review of Systems Review of Systems: All systems reviewed & are unremarkable except as noted in HPI & below Physical Exam Physical Exam: General- Not in distress Head- atraumatic Eyes- PERRL. ENT- oropharynx clear Neck- supple, no JVD. Lungs- clear to auscultation , No wheezing or crackles. Heart- regular rhythm; no murmur, no gallop. Abdomen- normal bowel sounds, soft, Left CVA tenderness present, no distension s een. Extremities- no pretibial edema, no erythema seen. Neuro- alert, oriented x 3; PERRL, no facial palsy; no dysarthria;Non focal. Skin- warm & dry Results & Data Results & Data Vital Signs (Past 12 Hours) Vital Signs Temp Pulse Pulse Resp BP BP Pulse Ox 03/09/23 01:20 87 16 130/84 98 03/08/23 22:10 36.9 C 121 H 19 135/86 100 O2 Del Method 03/09/23 01:20 Room Air 03/08/23 22:10 Room Air Diagnostic Findings Laboratory Results WBC 6.52 K/ul (4.8-10.8) 03/08/23 22:20 RBC 4.12 M/uL (4.20-5.40) L 03/08/23 22:20 Hgb 12.2 g/dl (12.0-16.0) 03/08/23 22:20 Hct 37.1 % (37.0-47.0) 03/08/23 22:20 MCV 90.0 fL (80.0-100.0) 03/08/23 22:20 MCH 29.6 pg (25.0-34.0) 03/08/23 22:20 MCHC 32.9 g/dL (32.0-36.0) 03/08/23 22:20 RDW Std Deviation 43.6 fL (36.4-46.3) 03/08/23 22:20 RDW Coeff of Coral 13.2 % (11.5-14.5) 03/08/23 22:20 Plt Count 338 K/uL (130-400) 03/08/23 22:20 MPV 9.3 fL (9.4-12.4) L 03/08/23 22:20 Immature Gran % (Auto) 0.3 % 03/08/23 22:20 Neut % (Auto) 55.9 % 03/08/23 22:20 Lymph % (Auto) 33.4 % 03/08/23 22:20 [place] % (Auto) 8.1 % 03/08/23 22:20 Eos % (Auto) 0.9 % 03/08/23 22:20 Baso % (Auto) 1.4 % 03/08/23 22:20 Neut # (Auto) 3.64 K/uL (1.40-6.50) 03/08/23 22:20 Lymph # (Auto) 2.18 K/uL (1.20-3.40) 03/08/23 22:20 [place] # (Auto) 0.53 K/uL (0.11-0.59) 03/08/23 22:20 Eos # (Auto) 0.06 K/uL (0.00-0.50) 03/08/23 22:20 Baso # (Auto) 0.09 K/uL (0.00-0.20) 03/08/23 22:20 Immature Gran # (Auto) 0.02 K/uL (0.01-0.20) 03/08/23 22:20 Sodium 140 mmol/L (136-145) 03/08/23 22:25 Potassium 3.7 mmol/L (3.5-5.1) 03/08/23 22:25 Chloride 107 mmol/L (98-107) 03/08/23 22:25 Carbon Dioxide 28 mmol/L (21-32) 03/08/23 22:25 Anion Gap 5 (3-11) 03/08/23 22:25 BUN 10 mg/dl (6-23) 03/08/23 22:25 Creatinine 0.76 mg/dl (0.6-1.2) 03/08/23 22:25 Est Cr Clr Drug Dosing 123.6 ml/min 03/08/23 22:25 Est GFR ( Amer) 122.0 ml/min 03/08/23 22:25 Est GFR (Non-Af Amer) 105.3 ml/min 03/08/23 22:25 BUN/Creatinine Ratio 13.2 (10-20) 03/08/23 22:25 Glucose 86 mg/dl (70-99(Fasting)) 03/08/23 22:25 Calcium 9.0 mg/dl (8.6-10.3) 03/08/23 22:25 Total Bilirubin 0.3 mg/dl (0.2-1.0) 03/08/23 22:25 AST 14 U/L (13-39) 03/08/23 22:25 ALT 9 U/L (7-52) 03/08/23 22:25 Alkaline Phosphatase 52 U/L (34-104) 03/08/23 22:25 Total Protein 6.9 gm/dl (6.0-8.3) 03/08/23 22:25 Albumin 4.6 gm/dl (3.4-5.0) 03/08/23 22:25 Globulin 2.3 gm/dl (2.5-4.0) L 03/08/23 22:25 Albumin/Globulin Ratio 2.0 (0.9-2) 03/08/23 22:25 Urine Color Yellow 03/08/23 22:20 Urine Appearance Turbid (Clear) A 03/08/23 22:20 Urine pH 5.5 (4.5-7.5) 03/08/23 22:20 Ur Specific [place] 1.014 (1.000-1.030) 03/08/23 22:20 Urine Protein 1+ (Negative) H 03/08/23 22:20 Urine Glucose (UA) Negative (Negative) 03/08/23 22:20 Urine Ketones Negative (Negative) 03/08/23 22:20 Urine Blood 3+ (Negative) H 03/08/23 22:20 Urine Nitrite Negative (Negative) 03/08/23 22:20 Urine Bilirubin Negative (Negative) 03/08/23 22: Urine Urobilinogen Negative (Negative) 03/08/23 22:20 Ur Leukocyte Esterase 2+ (Negative) H 03/08/23 22:20 Urine WBC (Auto) >30 /hpf (0-5) H 03/08/23 22:20 Urine RBC (Auto) >30 /hpf (0-4) H 03/08/23 22:20 U Hyaline Cast (Auto) 0 /lpf (0-5) 03/08/23 22:20 U Epithel Cells (Auto) >30 /lpf (0-5) H 03/08/23 22:20 Urine Bacteria (Auto) 2+ (Negative) H 03/08/23 22:20 Urine Crystals Not Reportable 03/08/23 22:20 Calcium Oxalate Crystal Present (None Prsent) A 03/08/23 22:20 Urine Yeast Budding (None Prsent) A 03/08/23 22:20 POC Ur Test NEG (NEG) 03/08/23 22:17 Impressions Renal Ultrasound 03/08/23 23:02 Exam(s): US RENAL EXAM: US Retroperitoneal Limited, Renal CLINICAL HISTORY: Reason for exam: eval fopr obst uropathy on left. TECHNIQUE: Real-time limited ultrasound of the retroperitoneum with image documentation. COMPARISON: 01/14/2023. FINDINGS: Right kidney: The right kidney measures 12.1 x 5.8 x 5.6 cm. There is mild prominence of the right renal pelvis with questionable mild thickening of the wall. There is a 4 mm echogenicity in the lower pole of the right kidney, cannot exclude a small stone. There is a round anechoic structure within the right upper renal pole measuring 1.3 x 1.4 x 1.6 cm consistent with a simple cyst. Left kidney: The left kidney measures 11.2 x 6.2 x 5.9 cm. There is mild fullness of the left renal collecting system suggestive of mild hydronephrosis. There is mild distention of the proximal left ureter. There is a small echogenic focus within the proximal left ureter measuring 6.3 mm, cannot exclude a small stone. Small echogenicity within the left renal sinus which could represent volume averaging from sinus fat versus tiny stones, largest measuring 7 mm. Bladder: Urinary bladder is unremarkable with visualization of bilateral shoulder jets. IMPRESSION: 1. Mild left hydronephrosis with possible small stone in the proximal left ureter measuring 6.3 mm. 2. Volume averaging from renal sinus fat versus tiny stones within the left kidney. 3. Possible tiny stone versus artifact measuring 4 mm within the right kidney. Simple cyst within the right upper renal pole. Possible mild right pelviectasis with no distinct hydronephrosis. 4. Cannot access thickening of the wall to the right renal pelvis versus artifact which may indicate sequela of previous inflammatory process. Clinical correlation recommended. 5. If indicated, these findings may be further assessed with CT urogram with and without contrast of the abdomen and pelvis. Electronically signed by: Angelita Finn MD 03/09/23 03:00 AM Code Status & VTE Plan VTE Prophylaxis Plan VTE Prophylaxis will be ordered: Yes
[2023-03-09] MEDS ORDERED: HYDROmorphone INJ 0.5 MG/0.5 ML SYR IV STA ×2 (03:57→15:56)
[2023-03-09] MEDS ORDERED: HYDROmorphone INJ 0.5 MG/0.5 ML SYR IV PRN (05:29)
[2023-03-09] MEDS ORDERED: ACETAMINOPHEN 325 MG TAB PO PRN (05:29)
[2023-03-09] MEDS ORDERED: CYCLOBENZAPRINE HCL 10 MG TAB PO PRN (05:29)
[2023-03-09] MEDS ORDERED: POLYETHYLENE (MIRALAX) 17 GM PACK PO PRN (05:29)
[2023-03-09] MEDS: SODIUM CHLORIDE 0.9% 1,000 ML IV SCH ×2 (05:30→16:09)
[2023-03-09] MEDS: oxyCODONE HCL IR 5 MG TAB (IMMEDIATE RELEASE) PO PRN ×4 (06:17→21:49)
--- NOTE | 2023-03-09 07:14 | XRay Report ---
KUB HISTORY: Follow-up study in a patient with history of kidney stones left sided kidney COMPARISON: KUB 01/14/2023 FINDINGS: Nonobstructive bowel gas pattern. Cholecystectomy. Renal shadows are partially obscured by bowel gas. Moderate fecal retention of the right any colon. No renal calculi. No ureteral calculi. N o pneumoperitoneum or pneumatosis. No fracture. IMPRESSION: No renal or ureteral calculi identified by radiography. ACT 112: Negative or not required by law. The above report was generated using voice recognition software. It may contain grammatical, syntax o r spelling errors. Electronically signed by: Jorge Pineda M.D. 03/09/2023 7:13 AM
[2023-03-09] MEDS: HYDROmorphone INJ 0.5 MG/0.5 ML SYR IV PRN ×4 (07:32→22:37)
[2023-03-09 08:17] LABS: Basophils # (auto) 0.08 K/uL (0.00-0.20); Basophils % (auto) 1.3 %; Eosinophils # (auto) 0.08 K/uL (0.00-0.50); Eosinophils % (auto) 1.3 %; Hematocrit (blood only) 32.3 % (37.0-47.0); Hemoglobin 10.2 g/dl (12.0-16.0); Immature Granulocytes # (auto) 0.02 K/uL (0.01-0.20); Immature Granulocytes % (auto) 0.3 %; Lymphocytes # (auto) 1.98 K/uL (1.20-3.40); Lymphocytes % (auto) 33.3 %; Mean Corpuscular Hemoglobin 28.7 pg (25.0-34.0); Mean Corpuscular Hgb Conc 31.6 g/dL (32.0-36.0); Mean Platelet Volume 9.3 fL (9.4-12.4); Monocytes # (auto) 0.51 K/uL (0.11-0.59); Monocytes % (auto) 8.6 %; Neutrophils # (auto) 3.28 K/uL (1.40-6.50); Neutrophils % (auto) 55.2 %; Platelet Count 256 K/uL (130-400); RDW Coefficient of Variation 13.4 % (11.5-14.5); RDW Standard Deviation 44.7 fL (36.4-46.3); Red Blood Count 3.55 M/uL (4.20-5.40); White Blood Count 5.95 K/ul (4.8-10.8)
[2023-03-09] MEDS: SERTRALINE HCL 50 MG TABLET PO SCH (08:19)
[2023-03-09] MEDS: PANTOprazole 40 MG TAB PO SCH (08:19)
[2023-03-09] MEDS: CHOLECALCIFEROL 5,000 UNITS 125 MCG TAB PO SCH (08:20)
[2023-03-09] MEDS: busPIRone 5 MG TAB PO SCH ×3 (08:20→20:05)
[2023-03-09] MEDS: MULTIVITAMIN TAB PO SCH (08:20)
[2023-03-09] MEDS: TAMSULOSIN HCL 0.4 MG CAP PO SCH (08:20)
[2023-03-09 08:28] LABS: BUN Creatinine Ratio 13.6 (10-20); Calcium 7.8 mg/dl (8.6-10.3); Creatinine Clr Calc Pharmacy 160.5 ml/min; Est GFR (African American) 142.5 ml/min; Magnesium 1.9 mg/dl (1.7-2.4); Potassium 4.1 mmol/L (3.5-5.1)
--- NOTE | 2023-03-09 08:40 | Urology Consultation ---
Date of Consultation March 09, 2023 Assessment & Plan (1) Left ureteral stone: (2) Renal colic on left side: (3) Hematuria: (4) Hydronephrosis, left: Plan 28yo/F admitted with left renal colic and hematuria. Renal ultrasound shows mild left hydronephrosis with possible small stone in the proximal left ureter measuring 6.3mm. Plan- CT abd pelvis w/o con Keep NPO Continue antibiotics and supportive care Urology to follow Pt reassessed this morning. Still with left flank pain, no noticeable stone passage. Remains afebrile and hemodynamically stable. CT abdomen pelvis obtained and demonstrates an obstructing 3 mm proximal left ureteral stone. We discussed options for acute stone management with cystoscopy, stent placement, possible stone treatment. Discussed outpatient options for conservative measures with max expulsion medical therapy. Risks and benefits were discussed. Stone free rates were also discussed as well as possibility of multiple procedures. Ureteral stents were discussed as well as post-operative issues and pain management. All questions were answered. Will plan to proceed to OR today for cystoscopy, left retrograde pyelogram, left ureteral stent placement, possible ureteroscopy, laser lithotripsy/stone treatment depending on findings. Risks and benefits were discussed as per consent. Patient received Rocephin in the ED. Will cover with Cipro preoperatively. Keep NPO. Urology will follow. Independently assessed, examined, and interviewed. Agree with above. Patient has obstructing stone in the left ureter approximately 3 mm in the proximal ureter causing hydronephrosis. Has what appears to be likely small stones in th e left renal pelvis. Has been having increasing pain discomfort. Had previously had to go intervention on the right side for obstructing stone. Has previously done well with tethered stents. Has increasing pain discomfort. Vitals are currently stable. All labs were reviewed pertinent values include creatinine of 0.59. White count was 5.95. No other major abnormalities please see HPI for other pertinent values. Full report in the lab section. Vitals are currently stable with no signs of tachycardia or hypotension. Patient is afebrile. Imaging was reviewed interpreted by myself. Patient has obstructing stone in the UPJ/proximal ureter causing hydronephrosis. All labs and vitals were removed. Pertinent values in the HPI section. Patient's complicated medical and surgical history is reviewed and summarized above. Risks and benefits discussed at length for procedure. These include bleeding, infection, injury to surrounding tissues or organs, and risks associated with anesthesia. Patient states understanding and agrees to proceed. Will sign consent and schedule. Plan for cystoscopy and possible left ureteroscopy and stone treatment. History of Present Illness Attending Physician: Anusha Gonzalez MD History of Present Illness 28-year-old female with a past medical history of recurrent kidney stones who presented to the ED with severe left flank pain and hematuria. She was afebrile and hemodynamically stable on arrival. Labs show no leukocytosis, normal renal function, hemoglobin 12.2. Urinalysis with 3+ blood, negative nitrite, 2+ LE, 2+ bacteria. Urine culture pending. Renal ultrasound obtained and notable for mild left hydronephrosis with a possible small stone in the proximal left ureter. She was given a dose of Rocephin in the ED. Patient given IV fluids and IV pain medication and admitted to medicine for further management. She was recently admitted in January 2023 for a right ureteral stone and underwent ureteroscopy and stone treatment at that time. Patient examined at bedside this AM. Awake, resting in bed on arrival. No acute distress. She denies any noticeable stone passage. Still with left flank pain. Denies fevers or chills. Some nausea, no vomiting. Has been NPO. Voiding without issue. She reports some hematuria, no dysuria. Renal ultrasound- 1. Mild left hydronephrosis with possible small stone in the proximal left ureter measuring 6.3 mm. 2. Volume averaging from renal sinus fat versus tiny stones within the left kidney. 3. Possible tiny stone versus artifact measuring 4 mm within the right kidney. Simple cyst within the right upper renal pole. Possible mild right pelviectasis with no distinct hydronephrosis. 4. Cannot access thickening of the wall to the right renal pelvis versus artifact which may indicate sequela of previous inflammatory process. Clinical correlation recommended. Allergies Allergy/AdvReac Type Severity Reaction Status Date / Time sulfamethoxazole Allergy Intermediate HIVES Verified 01/06/23 16:58 trimethoprim Allergy Intermediate HIVES Verified 01/06/23 16:58 morphine Allergy Mild Hives Verified 01/06/23 16:58 Home Medications Medication Instructions Recorded Confirmed Type buspirone 10 mg tablet 10 mg PO BID 03/09/23 03/09/23 History cholecalciferol (vitamin D3) 125 125 mcg PO DAILY 03/09/23 03/09/23 History mcg (5,000 unit) capsule cyclobenzaprine 10 mg tablet 10 mg PO TID PRN Pain 03/09/23 03/09/23 History fyzgzykq-pfmkndlu-wupg 45 mg-folic 1 cap PO DAILY 03/09/23 03/09/23 History acid 800 mcg-vit K 120 mcg capsule (Bariatric Multivitamins) omeprazole 20 mg capsule,delayed 20 mg PO DAILY 03/09/23 03/09/23 History release sertraline 100 mg tablet 150 mg PO DAILY 03/09/23 03/09/23 History tamsulosin 0.4 mg capsule 0.4 mg PO DAILY 03/09/23 03/09/23 History Patient History Medical History Depression Diverticulitis Hx of perforated bowel >10yrs ago -s/p IV antibiotics GERD (gastroesophageal reflux disease) Kidney stones Surgical History History of appendectomy 03/16/19: Grade 2 view, Veloz 2, ETT 7.5 atraumatic x 1. History of cholecystectomy 06/10/19: Grade 1 view, MAC 3, ETT 7.5 atraumatic x 1. History of colonoscopy History of Otilia-en-Y gastric bypass 6 months ago @ [facility] – [place] History of wisdom tooth extraction Hx of cystoscopy w/ stent-04/2022 [facility] PONV (postoperative nausea and vomiting) Previous section Status post laparoscopic procedure REMOVED uterine surface endometriotic tissue Family History Uncle Diabetes Mother Kidney stones Breast cancer Hx of cholecystectomy Hypertension Father Hx of cholecystectomy Other No family history of adverse response to anesthesia Social History Smoking Status: Never smoker Second Hand Exposure: No; Do You Dip or Chew Tobacco: No; Hx Alcohol Use: Yes Alcohol type: wine Hx Substance Use: No Preferred Language: Zimbabwean Communication Ability: Effective Food Vendor Required: No Beliefs That Will Affect Care: None marital status: Current Living Situation: Family Current Living Situation Comment: Patient lives alone with son Other Information That Helps Us Care for You: No Feels Safe at Home: Yes Safety Concerns: Feels Safe At This Time Assistive Devices: Contacts Review of Systems Review of Systems: All systems reviewed & are unremarkable except as noted in HPI & below Physical Exam Constitutional: well developed and well nourished; no acute distress Neck: normal visual inspection Respiratory: normal respiratory effort; no respiratory distress and no labored breathing Musculoskeletal: Head/Neck/Chest: normocephalic Skin: No visible rashes or lesions to exposed skin areas Neurologic: moves all extremities and awake Psychiatric: A+Ox3, euthymic affect Results & Data Vital Signs (Past 12 Hours) Vital Signs Temp Pulse Pulse Resp BP BP BP 03/09/23 07:09 36.4 C L 81 18 105/71 03/09/23 05:59 36.8 C 88 18 126/88 03/09/23 03:51 88 18 121/96 03/09/23 01:20 87 16 130/84 03/08/23 22:10 36.9 C 121 H 19 135/86 Pulse Ox O2 Del Method 03/09/23 07:09 98 Room Air 03/09/23 05:59 99 Room Air 03/09/23 03:51 100 Room Air 03/09/23 01:20 98 Room Air 03/08/23 22:10 100 Room Air PG Care Time/CCT Total # of Minutes Spent Total Time Spent with Patient: Total time spent is greater than 50% in coordination of care (as documented) at patient's floor/unit and/or counseling patient: Coding Level of Care Code 30844 IN/OBS CONSULT LVL 4,60M Diagnoses Left ureteral stone N20.1 Renal colic on left side N23 Hematuria R31.9 Hydronephrosis, left N13.30
[2023-03-09] MEDS ORDERED: oxyCODONE HCL IR 5 MG TAB (IMMEDIATE RELEASE) PO STA (08:45)
[2023-03-09] MEDS: ONDANSETRON INJ 2 MG/ML 2 ML VIAL IV PRN ×2 (08:50→22:37)
--- NOTE | 2023-03-09 09:22 | CT Scan Report ---
CT abd pelvis wo con CLINICAL HISTORY: hydronephrosis, ureteral stone TECHNIQUE: Helical axial images of the abdomen and pelvis were obtained. Automated dose lowering tech niques and/or adjustment according to patient size were utilized for this exam. This exam was perfor med without intravenous contrast. CT DOSE: 1359.54 mGy.cm COMPARISON: None available at the time of this dictation. FINDINGS: Lower chest: No acute abnormality. Liver: Unremarkable. No focal lesions are seen. Gallbladder and biliary tree: Patient is status post cholecystectomy. No intra- or extrahepatic bilia ry ductal dilation. Pancreas: Unremarkable, no focal lesions. Spleen: Unremarkable. Adrenals: Unremarkable. Kidneys and ureters: There is a 3 mm left proximal ureter stone with associated hydronephrosis. Nonob structive stones are seen bilaterally. Bladder: Limited evaluation due to underdistention. Reproductive organs: Unremarkable. Bowel: Patient is status post gastric bypass surgery. Patient is status post appendectomy. Lymph nodes Retroperitoneal: Unremarkable. Pelvic: Unremarkable. Mesenteric: Unremarkable. Peritoneum: Normal. Vessels: Unremarkable. Abdominal wall: Unremarkable. Bones: Unremarkable. IMPRESSION: 1. Left hydronephrosis with a 3 mm proximal ureteric stone. Additional nonobstructive stones are see n. 2. Postsurgical changes of Otilia-en-Y gastric bypass without acute abnormality. 3. Additional findings as above. ACT 112: Negative or not required by law. Electronically signed by: Alexander Gutierrez M.D. 03/09/2023 9:20 AM
[2023-03-09] MEDS: ACETAMINOPHEN 500 MG TAB PO SCH ×2 (09:24→18:01)
--- NOTE | 2023-03-09 09:54 | Anesthesiology Consultation ---
Date of Service March 09, 2023 Assessment & Plan Chart Review Chart Review: direct entry midwife initiated History Surgery Operation Date: 03/09/23 12:30 Proposed Procedures p Cystoscopy, Left Retrograde Pyelogram, Stent Placement, Possible Ureteroscopy, Possible Laser Lithotripsy Stone Treatment - Edin Treadwell, DO Height/Weight Height: 5 ft 6 in Weight: 93.4 kg Allergies Allergy/AdvReac Type Severity Reaction Status Date / Time sulfamethoxazole Allergy Intermediate HIVES Verified 01/06/23 16:58 trimethoprim Allergy Intermediate HIVES Verified 01/06/23 16:58 morphine Allergy Mild Hives Verified 01/06/23 16:58 Medications Home Medications Medication Instructions Recorded Confirmed Last Taken buspirone 10 mg tablet 10 mg PO BID 03/09/23 03/09/23 Unknown cholecalciferol (vitamin D3) 125 125 mcg PO DAILY 03/09/23 03/09/23 Unknown mcg (5,000 unit) capsule cyclobenzaprine 10 mg tablet 10 mg PO TID PRN Pain 03/09/23 03/09/23 Unknown [id number]-[id number] 45 mg-folic 1 cap PO DAILY 03/09/23 03/09/23 Unknown acid 800 mcg-vit K 120 mcg capsule (Bariatric Multivitamins) omeprazole 20 mg capsule,delayed 20 mg PO DAILY 03/09/23 03/09/23 Unknown release sertraline 100 mg tablet 150 mg PO DAILY 03/09/23 03/09/23 Unknown tamsulosin 0.4 mg capsule 0.4 mg PO DAILY 03/09/23 03/09/23 Unknown Active Medications Generic Name Dose Route Start Last Admin Trade Name Freq PRN Reason Stop Dose Admin Acetaminophen 1,000 mg 03/09/23 09:00 03/09/23 09:24 Acetaminophen 500 Mg Tab PO 04/08/23 08:59 1,000 mg Q8H CHELSEY Administration Buspirone HCl 10 mg 03/09/23 09:00 03/09/23 08:22 Buspirone 5 Mg Tab PO 04/08/23 08:59 Not Given BID CHELSEY Hydromorphone HCl 0.5 mg 03/09/23 05:57 03/09/23 07:32 Hydromorphone Inj 0.5 Mg/0.5 Ml Syr IV 03/23/23 05:28 0.5 mg Q3H PRN Administration Severe Pain (Scale 7, 8, 9,10) Sodium Chloride 1,000 mls @ 125 mls/hr 03/09/23 05:29 03/09/23 05:30 Nss IV 04/08/23 05:28 125 mls/hr .Q8H CHELSEY Administration Multivitamins 1 tab 03/09/23 09:00 03/09/23 08:20 Multivitamin Tab PO 04/08/23 08:59 1 tab DAILY CHELSEY Administration Ondansetron HCl 4 mg 03/09/23 05:29 03/09/23 08:50 Ondansetron Inj 2 Mg/Ml 2 Ml Vial IV 04/08/23 05:28 4 mg Q6H PRN Administration Nausea Oxycodone HCl 5 mg 03/09/23 05:56 03/09/23 06:17 Oxycodone Hcl Ir 5 Mg Tab (Immediate Release) PO 03/23/23 05:55 5 mg Q4H PRN Administration Mod-Sev Pain (Scale 4-10) Pantoprazole Sodium 40 mg 03/09/23 09:00 03/09/23 08:19 Pantoprazole 40 Mg Tab PO 04/08/23 08:59 40 mg DAILY CHELSEY Administration Protocol Sertraline HCl 150 mg 03/09/23 09:00 03/09/23 08:19 Sertraline Hcl 50 Mg Tablet PO 04/08/23 08:59 150 mg DAILY CHELSEY Administration Tamsulosin HCl 0.4 mg 03/09/23 09:00 03/09/23 08:20 Tamsulosin Hcl 0.4 Mg Cap PO 04/08/23 08:59 0.4 mg DAILY CHELSEY Administration Vitamin D 5,000 units 03/09/23 09:00 03/09/23 08:20 Cholecalciferol 5,000 Units 125 Mcg Tab PO 04/08/23 08:59 5,000 units DAILY CHELSEY Administration Past Medical History Medical History Depression Diverticulitis Hx of perforated bowel >10yrs ago -s/p IV antibiotics GERD (gastroesophageal reflux disease) Kidney stones Past Family History Family History Uncle Diabetes Mother Kidney stones Breast cancer Hx of cholecystectomy Hypertension Father Hx of cholecystectomy Other No family history of adverse response to anesthesia Past Surgical History Surgical History History of appendectomy 03/16/19: Grade 2 view, Veloz 2, ETT 7.5 atraumatic x 1. History of cholecystectomy 06/10/19: Grade 1 view, MAC 3, ETT 7.5 atraumatic x 1. History of colonoscopy History of Otilia-en-Y gastric bypass 6 months ago @ [facility] History of wisdom tooth extraction Hx of cystoscopy w/ stent-04/2022 [facility] PONV (postoperative nausea and vomiting) Previous section Status post laparoscopic procedure REMOVED uterine surface endometriotic tissue Social History Smoking Status: Never smoker Do You Dip or Chew Tobacco: No Hx Alcohol Use: Yes Alcohol type: wine alcohol intake frequency: holidays/special occasions only Hx Substance Use: No substance use type: does not use Physical Exam Vital Signs Last Vital Signs Temp 97.5 F L 03/09/23 07:09 Pulse 81 03/09/23 07:09 Resp 18 03/09/23 07:09 BP 105/71 03/09/23 07:09 Pulse Ox 98 03/09/23 07:09 O2 Del Method Room Air 03/09/23 07:09 Testing Laboratory Results 03/09/23 07:49 03/09/23 07:49 Urine Color Yellow 03/08/23 22:20 Urine Appearance Turbid (Clear) A 03/08/23 22:20 Urine pH 5.5 (4.5-7.5) 03/08/23 22:20 Ur Specific [place] 1.014 (1.000-1.030) 03/08/23 22:20 Urine Protein 1+ (Negative) H 03/08/23 22:20 Urine Glucose (UA) Negative (Negative) 03/08/23 22:20 Urine Ketones Negative (Negative) 03/08/23 22:20 Urine Nitrite Negative (Negative) 03/08/23 22:20 Ur Leukocyte Esterase 2+ (Negative) H 03/08/23 22:20 Urine WBC (Auto) >30 /hpf (0-5) H 03/08/23 22:20 Urine RBC (Auto) >30 /hpf (0-4) H 03/08/23 22:20 U Hyaline Cast (Auto) 0 /lpf (0-5) 03/08/23 22:20 U Epithel Cells (Auto) >30 /lpf (0-5) H 03/08/23 22:20 Urine Bacteria (Auto) 2+ (Negative) H 03/08/23 22:20 03/08/23 22:17 POC Ur Test NEG Electrocardiogram Date: 01/06/23 Findings: + NSR @ (72 bpm)
[2023-03-09] MEDS ORDERED: MIDAZOLAM HCL 1 MG/ML 2ML VIAL ONE (10:28)
[2023-03-09] MEDS ORDERED: fentaNYL citrate PF 100 MCG/2 ML VIAL ONE (10:29)
[2023-03-09] MEDS ORDERED: ATROPINE SULFATE 0.1 MG/ML 10ML SYR IV PRN (10:57)
[2023-03-09] MEDS ORDERED: ePHEDrine sulfate 50 MG/ML AMP IV PRN (10:57)
[2023-03-09] MEDS ORDERED: ONDANSETRON INJ 2 MG/ML 2 ML VIAL IV PRN (10:57)
[2023-03-09] MEDS: CIPROFLOXACIN / D5W 400 MG/200 ML BAG IV SCH (11:30)
[2023-03-09] MEDS ORDERED: PROPOFOL IV EMULSION 10 MG/ML 20 ML VIAL IV ONE (11:46)
[2023-03-09] MEDS ORDERED: DEXAMETHASONE SOD INJ 4 MG/ML VIAL ONE (11:46)
[2023-03-09] MEDS ORDERED: KETOROLAC 30 MG/ML VIAL ONE (11:46)
[2023-03-09] MEDS ORDERED: ONDANSETRON INJ 2 MG/ML 2 ML VIAL ONE (11:46)
[2023-03-09] MEDS ORDERED: LIDOCAINE 2% 2 ML VIAL/AMP(20MG/ML) INFIL ONE (11:46)
--- NOTE | 2023-03-09 12:10 | Operative Report ---
PG Post Operative Report Pre & Post Diagnosis Operation Date: 03/09/23 12:30 Pre-Op Diagnosis: RENAL COLIC, UTI I identified the patient and participated in the time-out.: Yes Procedure Operation Date: 03/09/23 12:30 Actual Procedures p Cystoscopy with Left Retrograde Pyelogram, Stent Placement, Ureteroscopy, Laser Lithotripsy, and Stone basket extraction - Edin Treadwell DO Surgeon Edin Treadwell, II, DO Manager Process Excellence None Estimated Blood Loss 1 Findings Consistent with Post-Op Diagnosis Stone destroyed to dust and small fragments and larger fragments removed. Specimens Stone Fragments Drains 4.8 Fr Multilength on TETHER Anesthesia Type General Complications none Disposition Disposition: Recovery Room Indications Patient with bothersome stones. Risks and benefits discussed at length. Description of Procedure Patient was consented and brought back to the operating room. Patient was placed under anesthesia in the supine position and moved to the dorsal lithotomy position. Patient was prepped and draped in the regular sterile fashion. A time out was completed identifying the correct patient and procedure. A 30degree Cystoscope was placed into the bladder and the entire bladder was examined. The UO's were identified. The UO was cannulized with a catheter and a retrograde pyelogram was completed. A wire was then placed. A second safety wire was placed. The flexible ureteroscope was taken into the ureter over the wire. The entire ureter and renal pelvis were examined. The stones were identified. A laser fiber was selected and the stones were pulverized to dust and small fragments. Larger fragments were grasped and removed and sent for analysis. The entire area was once again examined. No residual large fragments or areas of concern were noted. The scope was slowly removed with the wire left in place. Contrast was placed through the scope for a pyelogram to assist in stent placement. The entire ureter was examined as the scope was slowly removed. No obstructions or other areas of concern were noted. With the wire in place, a 4.8 Fr Double J stent was placed. A Tether was left in place. The string was secured to the inner thigh It was confirmed with fluoroscopy. With the stent in place, the bladder was emptied. The scope was removed. The patient was cleaned, aroused from anesthesia, and transferred to the pacu in stable condition having tolerated the procedure well with no complications. I was present and participated in all aspects of the procedure. The patient will be monitored in the PACU until transferred. Patient can remove stent in 2-[address] Mack as outpatient in 4-6 weeks. I attest to the content of the Intraoperative Record and any orders documented therein. Any exceptions are noted below.
[2023-03-09] MEDS ORDERED: DIATRIZOATE MEGLUMINE 30% 100ML VIAL INSTIL ONE (12:17)
--- NOTE | 2023-03-09 12:21 | Hospitalist Progress Note ---
Date of Service March 09, 2023 Assessment & Plan (1) Renal colic on left side: Plan: 28-year-old female with past medical history of recurrent kidney stones for the last 2 years thought to be from hyperparathyroidism, hyperparathyroidism thought to be from hypo vitamin D, history of gastric bypass, history of NAFLD, prediabetes, mood disorder, presents with with severe left flank pain since last couple of days secondary to kidney stone. Left renal colic History of recurrent renal calculi, likely secondary to vitamin D deficiency in the setting of secondary hyperparathyroidism from gastric bypass surgery Renal US-Mild left hydronephrosis with possible small stone in the proximal left ureter measuring 6.[address] ABD/pelvis-3 mm left proximal ureter stone with associated hydronephrosis Remains afebrile, renal function stable Urology consulted, planning on OR today IVF, pain and nausea control UTI UA suggestive of UTI History of UTI 01/2023-urine culture from 02/03 grew pansensitive E. coli Afebrile, VSS. Does not appear septic. On IV ceftriaxone, follow culture Secondary hyperparathyroidism/vitamin D deficiency Continue vitamin D supplements Follows with endocrinology at [facility] GERD Continue PPI History of gastric bypass surgery NAFLD Mood disorder Chronic, stable Continue Zoloft and buspirone DVT prophylaxis SCDs due to planned invasive procedure Patient seen in collaboration with Dr. Gonzalez. Admission and Anticipated Discharge Date Admission Date: March 09, 2023 Supervising Physician Co-Signing Physician Notes I have seen and discussed the case with the collaborating DINING ROOM SUPERVISOR. I agree with the above H&P. I have reviewed and confirmed the patients medical history, the findings on physical examination, and the patients diagnosis and treatment plan with Love DINING ROOM SUPERVISOR and agree with the information documented. In short, Ms. Snell is a 28 year old woman with history of gastric bypass 2021, recurrent nephrolithiasis and hyperparathyroidism undergoing work up with Endo who was admitted 03/08 due to renal colic and obstructing stones. She is following Endocrinology who is trialing Vit D replacement to assess if elevated PTH related to vitamin D insufficency. Patient recently increased from 4000U to 5000U daily on 02/06/2023 . Despite over 4 months of vitamin d supplementation, levels are 14.4. Urology following, now s/p stent placement on 03/09. Discussion over tigertext with Dr Refugio Cooper (compliance investigator) was had to determine next steps to aid in patient's endocrine dyscrasia. Plan is to order intact pth, 24 urine calcium. After urine collection is complete, will implement HCTZ therapy. Stent management per Uro. Subjective Follow-up for renal colic, obstructing left ureteral stone. Patient seen and examined. Reports ongoing left leg pain and hematuria. Remains afebrile. Evaluated by urology, planning on procedure today. Physical Exam Constitutional: WD/WN, vitals as above no acute distress Respiratory: normal respiratory effort, lungs clear to auscultation Cardiovascular: Rate/Rhythm: regular rate and regular rhythm Vessels: normal peripheral pulses Extremities: no edema Skin: no rashes, warm and dry Neurologic: no focal motor deficits Psychiatric: A+Ox3, euthymic affect Genitourinary: + CVA tenderness (left) Results & Data Results & Data Vital Signs (Past 12 Hours) Vital Signs Temp Pulse Resp BP BP Pulse Ox O2 Del Method 03/09/23 10:41 36.8 C 75 18 102/75 100 Room Air 03/09/23 07:09 36.4 C L 81 18 105/71 98 Room Air 03/09/23 05:59 36.8 C 88 18 126/88 99 Room Air 03/09/23 03:51 88 18 121/96 100 Room Air 03/09/23 01:20 87 16 130/84 98 Room Air Laboratory Results Short CBC 03/08/23 03/09/23 Range/Units 22:20 07:49 WBC 6.52 5.95 (4.8-10.8) K/ul Hgb 12.2 10.2 L (12.0-16.0) g/dl Hct 37.1 32.3 L (37.0-47.0) % Plt Count 338 256 (130-400) K/uL BMP 03/08/23 03/09/23 22:25 07:49 Sodium 140 142 Potassium 3.7 4.1 Chloride 107 112 H Carbon Dioxide 28 27 BUN 10 8 Creatinine 0.76 0.59 L Glucose 86 87 Calcium 9.0 7.8 L Liver Function 03/08/23 Range/Units 22:25 Total Bilirubin 0.3 (0.2-1.0) mg/dl AST 14 (13-39) U/L ALT 9 (7-52) U/L Alkaline Phosphatase 52 (34-104) U/L Albumin 4.6 (3.4-5.0) gm/dl Urine 03/08/23 Range/Units 22:20 Urine Color Yellow Urine Appearance Turbid A (Clear) Urine pH 5.5 (4.5-7.5) Ur Specific [place] 1.014 (1.000-1.030) Urine Protein 1+ H (Negative) Urine Glucose (UA) Negative (Negative) Diagnostic Findings KUB X-Ray 03/08/23 23:02 KUB HISTORY: Follow-up study in a patient with history of kidney stones left sided kidney COMPARISON: KUB 01/14/2023 FINDINGS: Nonobstructive bowel gas pattern. Cholecystectomy. Renal shadows are partially obscured by bowel gas. Moderate fecal retention of the right any colon. No renal calculi. No ureteral calculi. No pneumoperitoneum or pneumatosis. No fracture. IMPRESSION: No renal or ureteral calculi identified by radiography. ACT 112: Negative or not required by law. The above report was generated using voice recognition software. It may contain grammatical, syntax or spelling errors. Electronically signed by: Jorge Pineda M.D. 03/09/2023 7:13 AM Renal Ultrasound 03/08/23 23:02 Exam(s): US RENAL EXAM: US Retroperitoneal Limited, Renal CLINICAL HISTORY: Reason for exam: eval fopr obst uropathy on left. TECHNIQUE: Real-time limited ultrasound of the retroperitoneum with image documentation. COMPARISON: 01/14/2023. FINDINGS: Right kidney: The right kidney measures 12.1 x 5.8 x 5.6 cm. There is mild prominence of the right renal pelvis with questionable mild thickening of the wall. There is a 4 mm echogenicity in the lower pole of the right kidney, cannot exclude a small stone. There is a round anechoic structure within the right upper renal pole measuring 1.3 x 1.4 x 1.6 cm consistent with a simple cyst. Left kidney: The left kidney measures 11.2 x 6.2 x 5.9 cm. There is mild fullness of the left renal collecting system suggestive of mild hydronephrosis. There is mild distention of the proximal left ureter. There is a small echogenic focus within the proximal left ureter measuring 6.3 mm, cannot exclude a small stone. Small echogenicity within the left renal sinus which could represent volume averaging from sinus fat versus tiny stones, largest measuring 7 mm. Bladder: Urinary bladder is unremarkable with visualization of bilateral shoulder jets. IMPRESSION: 1. Mild left hydronephrosis with possible small stone in the proximal left ureter measuring 6.3 mm. 2. Volume averaging from renal sinus fat versus tiny stones within the left kidney. 3. Possible tiny stone versus artifact measuring 4 mm within the right kidney. Simple cyst within the right upper renal pole. Possible mild right pelviectasis with no distinct hydronephrosis. 4. Cannot access thickening of the wall to the right renal pelvis versus artifact which may indicate sequela of previous inflammatory process. Clinical correlation recommended. 5. If indicated, these findings may be further assessed with CT urogram with and without contrast of the abdomen and pelvis. Electronically signed by: Angelita Finn MD 03/09/23 03:00 AM Abdomen/Pelvis CT 03/09/23 08:30 CT abd pelvis wo con CLINICAL HISTORY: hydronephrosis, ureteral stone TECHNIQUE: Helical axial images of the abdomen and pelvis were obtained. Automated dose lowering techniques and/or adjustment according to patient size were utilized for this exam. This exam was performed without intravenous contrast. CT DOSE: 1359.54 mGy.cm COMPARISON: None available at the time of this dictation. FINDINGS: Lower chest: No acute abnormality. Liver: Unremarkable. No focal lesions are seen. Gallbladder and biliary tree: Patient is status post cholecystectomy. No intra- or extrahepatic biliary ductal dilation. Pancreas: Unremarkable, no focal lesions. Spleen: Unremarkable. Adrenals: Unremarkable. Kidneys and ureters: There is a 3 mm left proximal ureter stone with associated hydronephrosis. Nonobstructive stones are seen bilaterally. Bladder: Limited evaluation due to underdistention. Reproductive organs: Unremarkable. Bowel: Patient is status post gastric bypass surgery. Patient is status post appendectomy. Lymph nodes Retroperitoneal: Unremarkable. Pelvic: Unremarkable. Mesenteric: Unremarkable. Peritoneum: Normal. Vessels: Unremarkable. Abdominal wall: Unremarkable. Bones: Unremarkable. IMPRESSION: 1. Left hydronephrosis with a 3 mm proximal ureteric stone. Additional nonobstr uctive stones are seen. 2. Postsurgical changes of Otilia-en-Y gastric bypass without acute abnormality. 3. Additional findings as above. ACT 112: Negative or not required by law. Electronically signed by: Alexander Gutierrez M.D. 03/09/2023 9:20 AM
[2023-03-09] MEDS: fentaNYL citrate PF 100 MCG/2 ML VIAL IV PRN ×4 (12:25→12:40)
--- NOTE | 2023-03-09 12:47 | Fluoroscopy Report ---
FL retrograde includes kub CLINICAL HISTORY: RETROGRADE, STENT TECHNIQUE: 3 views were obtained with the C-arm in the OR with the above procedure. Total fluoroscopy time was 16 seconds. Radiation dose was 4.62 mGy. Comparison: Comparison is made to CT abdomen pelvis 03/09/2023 FINDINGS/IMPRESSION: Intraoperative images were obtained of left retrograde pyelogram with laser lith otripsy and stent placement. The stent is in satisfactory appearance. Please correlate with intraoperative fluoroscopy and operative report. ACT 112: Negative or not required by law. Electronically signed by: Alexander Gutierrez M.D. 03/09/2023 12:46 PM
--- NOTE | 2023-03-09 13:31 | Anesthesiology Progress Note ---
Date of Service March 09, 2023 Anesthesia Post Procedure Vital Signs Vital Signs: Temp Pulse Pulse Pulse Resp BP BP 03/09/23 13:09 98.1 F 83 14 125/80 03/09/23 12:57 97.9 F 78 13 117/67 03/09/23 12:45 76 13 120/70 03/09/23 12:35 84 12 124/77 03/09/23 12:25 82 13 123/75 03/09/23 12:15 97.3 F L 99 H 16 122/88 03/09/23 10:41 98.2 F 75 18 03/09/23 07:09 97.5 F L 81 18 105/71 03/09/23 05:59 98.2 F 88 18 03/09/23 03:51 88 18 03/09/23 01:20 87 16 03/08/23 22:10 98.4 F 121 H 19 135/86 BP Pulse Ox O2 Del Method O2 Flow Rate 03/09/23 13:09 98 Room Air 03/09/23 12:57 95 Room Air 03/09/23 12:45 95 Room Air 03/09/23 12:35 98 Oxymask 4 03/09/23 12:25 100 Oxymask 4 03/09/23 12:15 100 Oxymask 4 03/09/23 10:41 102/75 100 Room Air 03/09/23 07:09 98 Room Air 03/09/23 05:59 126/88 99 Room Air 03/09/23 03:51 121/96 100 Room Air 03/09/23 01:20 130/84 98 Room Air 03/08/23 22:10 100 Room Air Pain Intensity Left Flank: Pain Intensity: 6 Transfer of Care Handoff Completed per policy Notes Mental Status: alert / awake / arousable and participated in evaluation Patient Amnestic to Procedure: Yes Nausea / Vomiting: adequately controlled Pain: adequately controlled Airway Patency, RR, SpO2: stable & adequate BP & HR: stable & adequate Hydration State: stable & adequate Anesthetic Complications: no major complications apparent and Pt Satisfied with anesthetic care
[2023-03-09] MEDS: PHENAZOPYRIDINE HCL 200 MG TAB PO PRN (15:09)
[2023-03-09] MEDS: oxyBUTYnin chloride 5 MG TAB PO PRN ×2 (15:09→20:05)
[2023-03-09] MEDS ORDERED: cefTRIAXone SODIUM 2,000 MG in DEXTROSE 5% 50 ML IV SCH (23:30)
[2023-03-10] MEDS: SODIUM CHLORIDE 0.9% 1,000 ML IV SCH ×3 (00:38→07:50)
[2023-03-10] MEDS: ACETAMINOPHEN 500 MG TAB PO SCH ×2 (00:38→07:35)
[2023-03-10] MEDS: oxyCODONE HCL IR 5 MG TAB (IMMEDIATE RELEASE) PO PRN ×4 (02:53→15:56)
[2023-03-10] MEDS: HYDROmorphone INJ 0.5 MG/0.5 ML SYR IV PRN (04:05)
[2023-03-10] MEDS: CIPROFLOXACIN / D5W 400 MG/200 ML BAG IV SCH (05:04)
[2023-03-10 06:30] LABS: Hematocrit (blood only) 31.3 % (37.0-47.0); Hemoglobin 10.4 g/dl (12.0-16.0); Mean Corpuscular Hemoglobin 29.3 pg (25.0-34.0); Mean Corpuscular Hgb Conc 33.2 g/dL (32.0-36.0); Mean Corpuscular Volume 88.2 fL (80.0-100.0); Mean Platelet Volume 9.6 fL (9.4-12.4); Platelet Count 298 K/uL (130-400); RDW Coefficient of Variation 13.2 % (11.5-14.5); Red Blood Count 3.55 M/uL (4.20-5.40); White Blood Count 8.34 K/ul (4.8-10.8)
[2023-03-10 06:42] LABS: BUN Creatinine Ratio 11.8 (10-20); Calcium 8.3 mg/dl (8.6-10.3); Creatinine Clr Calc Pharmacy 139.3 ml/min; Est GFR (Non-African American) 117.4 ml/min; Potassium 4.3 mmol/L (3.5-5.1)
[2023-03-10] MEDS: busPIRone 5 MG TAB PO SCH (07:34)
[2023-03-10] MEDS: TAMSULOSIN HCL 0.4 MG CAP PO SCH (07:34)
[2023-03-10] MEDS: SERTRALINE HCL 50 MG TABLET PO SCH (07:34)
[2023-03-10] MEDS: PANTOprazole 40 MG TAB PO SCH (07:34)
[2023-03-10] MEDS: CHOLECALCIFEROL 5,000 UNITS 125 MCG TAB PO SCH (07:34)
[2023-03-10] MEDS: MULTIVITAMIN TAB PO SCH (07:34)
[2023-03-10] MEDS: oxyBUTYnin chloride 5 MG TAB PO PRN (08:45)
--- NOTE | 2023-03-10 10:18 | Urology Progress Note ---
Date of Service March 10, 2023 Assessment & Plan (1) Left ureteral stone: (2) Renal colic on left side: (3) Hematuria: (4) Hydronephrosis, left: Plan 28yo/F admitted with left renal colic and hematuria. CT abdomen pelvis notable for an obstructing 3 mm proximal left ureteral stone. POD #1 s/p Cystoscopy with Left Retrograde Pyelogram, Stent Placement, Ureteroscopy, Laser Lithotripsy, and Stone basket extraction Tolerating the ureteral stent with minimal bother. Remains afebrile and hemodynamically stable. Labs today show no leukocytosis and normal renal function. Urine culture 10/ with more than 3 types of organisms, all high counts. Continues on Ceftriaxone. Ok for discharge from perspective. Patient will remove the tethered stent in 2-3 days. She will contact the urology office with any issues/concerns. Recommend d/c with short course of antibiotics and a few days of tamsulosin, prn pyridium, prn oxybutynin for stent management. Will arrange outpatient follow-up with our service. Urology will sign-off. Please contact us with any further questions, concerns, or changes in patient status. Admission and Anticipated Discharge Date Admission Date: March 09, 2023 Supervising Physician Co-Signing Physician Notes Discussed patient with HUGO. Agree with plan. Subjective Patient examined at bedside this AM. Awake, resting in bed on arrival. No acute distress. Tolerating the stent with minimal bother. Voiding without issue. No fevers. Review of Systems Constitutional: as per Subjective / HPI Genitourinary: as per Subjective / HPI Physical Exam Constitutional: well developed and well nourished; no acute distress Respiratory: normal respiratory effort; no respiratory distress and no labored breathing Skin: No visible rashes or lesions to exposed skin areas Neurologic: moves all extremities and awake Psychiatric: A+Ox3, euthymic affect Results & Data Vital Signs (Past 12 Hours) Vital Signs Temp Pulse Resp BP Pulse Ox O2 Del Method 03/10/23 08:00 Room Air 03/10/23 07:10 37.1 C 72 18 128/84 97 Room Air 03/10/23 02:58 36.8 C 78 16 132/57 L 98 Room Air 03/09/23 23:41 37.1 C 95 H 16 121/75 97 Room Air PG Care Time/CCT Total # of Minutes Spent Total Time Spent with Patient: Total time spent is greater than 50% in coordination of care (as documented) at patient's floor/unit and/or counseling patient: Coding Level of Care Code 65707 SUB INP/OBS CARE 2/35MIN Diagnoses Left ureteral stone N20.1 Renal colic on left side N23 Hematuria R31.9 Hydronephrosis, left N13.30
[2023-03-10] MEDS: PHENAZOPYRIDINE HCL 200 MG TAB PO PRN (12:04)
[2023-03-10] MEDS ORDERED: FLUCONAZOLE 50 MG TAB PO ONE (13:59)
--- NOTE | 2023-03-10 14:16 | Hospitalist Progress Note ---
Date of Service March 10, 2023 Assessment & Plan (1) Renal colic on left side: Plan: 28-year-old female with past medical history of recurrent kidney stones for the last 2 years thought to be from hyperparathyroidism, hyperparathyroidism thought to be from hypo vitamin D, history of gastric bypass, history of NAFLD, prediabetes, mood disorder, presents with with severe left flank pain since last couple of days secondary to kidney stone. Left renal colic History of recurrent renal calculi, likely secondary to vitamin D deficiency in the setting of secondary hyperparathyroidism from gastric bypass surgery Renal US-Mild left hydronephrosis with possible small stone in the proximal left ureter measuring 6.[address] ABD/pelvis-3 mm left proximal ureter stone with associated hydronephrosis Urology consulted POD#1 Cystoscopy with Left Retrograde Pyelogram, Stent Placement, Ureteroscopy, Laser Lithotripsy, and Stone basket extraction Remains afebrile, renal function stable Continue with pain control, discussed with urology - tentative d/c tomorrow with plans for patient to do self stent removal at home in a day or 2. Recommend 3 days of cephalexin until stent is removed, continue IV ceftriaxone for now. Urine culture: > 3 types of organisms present, likely contaminant History of UTI 01/2023-urine culture from 02/03 grew pansensitive E. coli Afebrile, VSS. Does not appear septic. Due to yeast noted on UA, will give 1 dose Diflucan today Secondary hyperparathyroidism/vitamin D deficiency Dr. Gonzalez discussed with endocrinology on 03/09, Dr. Coopre -- recommends 24- hour urine calcium, once collection complete, start HCTZ 12.5 mg daily Ca+ 9.0 --> 7.8 --> 8.3, ionized calcium 1.1 Intact PTH 74.8 (previously 87 on 02/03/2023) Vitamin D level 14.4, continue vitamin D supplements Follows with endocrinology at [facility] GERD Continue PPI History of gastric bypass surgery NAFLD Mood disorder Chronic, stable Continue Zoloft and buspirone DVT prophylaxis SCDs Patient seen in collaboration with Dr. Gonzalez. Admission and Anticipated Discharge Date Admission Date: March 09, 2023 Supervising Physician Co-Signing Physician Notes I have seen and discussed the case with the collaborating FRAMING CARPENTER. I agree with the above H&P. I have reviewed and confirmed the patients medical history, the findings on physical examination, and the patients diagnosis and treatment plan with Bharati GOMEZ and agree with the information documented. In short, Ms. Snell is a 28 year old woman with history of gastric bypass 2021, recurrent nephrolithiasis and hyperparathyroidism undergoing work up with Endo who was admitted 03/08 due to renal colic and obstructing stones. She is following Endocrinology who is trialing Vit D replacement to assess if elevated PTH related to vitamin D insufficency. Patient recently increased from 4000U to 5000U daily on 02/06/2023 . Despite over 4 months of vitamin d supplementation, levels are 14.4. Urology following, now s/p stent placement on 03/09. Discussion over tigertext with Dr Refugio Cooper (sanding machine operator or tender) was had to determine next steps to aid in patient's endocrine dyscrasia. Today, patient attempting to remove stent on her own and requesting discharge home depsite discussion to stay. Plan to take urine Ca test home to complete as 24 hour collection already started. Script for 12.5mg HCTZ ordered to start after completion of Urine collection. Follow up with urology for stent removal with course of keflex while stent remains intact. Encouraged patient to not remove stent by self. Subjective Follow-up for renal colic, obstructing left ureteral stone. Patient seen and examined. S/p Cystoscopy with Left Retrograde Pyelogram, Stent Placement, Ureteroscopy, Laser Lithotripsy, and Stone basket extraction yesterday. Denies flank pain, reporting bladder pain that is resolved with oxybutynin. Remains afebrile. Physical Exam Constitutional: WD/WN, vitals as above Respiratory: normal respiratory effort, lungs clear to auscultation Cardiovascular: Rate/Rhythm: regular rate and regular rhythm Vessels: normal peripheral pulses Extremities: no edema Gastrointestinal (Abdomen): Percussion/Palpation: abdomen soft; abdomen nontender Skin: no rashes, warm and dry Neurologic: no focal motor deficits Psychiatric: A+Ox3, euthymic affect Results & Data Results & Data Vital Signs (Past 12 Hours) Vital Signs Temp Pulse Resp BP Pulse Ox O2 Del Method 03/10/23 08:00 Room Air 03/10/23 07:10 37.1 C 72 18 128/84 97 Room Air 03/10/23 02:58 36.8 C 78 16 132/57 L 98 Room Air Laboratory Results Short CBC 03/10/23 Range/Units 06:02 WBC 8.34 (4.8-10.8) K/ul Hgb 10.4 L (12.0-16.0) g/dl Hct 31.3 L (37.0-47.0) % Plt Count 298 (130-400) K/uL BMP 03/10/23 06:02 Sodium 139 Potassium 4.3 Chloride 110 H Carbon Dioxide 23 BUN 8 Creatinine 0.68 Glucose 135 H Calcium 8.3 L
[2023-03-10] MEDS ORDERED: oxyBUTYnin chloride 5 MG TAB PO SCH (17:00)
--- NOTE | 2023-03-10 17:46 | Discharge Summary ---
Date of Service March 10, 2023 Admission HPI Per Admitting Provider 28-year-old female with past medical history of recurrent kidney stones since last 2 years thought to be from hyperparathyroidism, hyperparathyroidism thought to be from hypo vitamin D, history of gastric bypass, history of NAFLD, prediabetes, mood disorder, presents with with severe left flank pain since last couple of days. Today she also had hematuria which prompted her to come to the ER. Also having burning micturition. Had nausea. No fevers. No chest pain or shortness of breath. No cough. No headaches. No runny nose or sore throat. Currently resting comfortable hemodynamic stable. Past medical history as mentioned above Past surgical history. Colonoscopy, cystoscopy ureter/ with lithotripsy on the right side in 2020, EGD, exploration of abdomen for endometriosis, laparoscopic procedure of the liver, laparoscopic gastric Otilia-en-Y bypass in September 2021, laparoscopic cholecystectomy, laparoscopic appendectomy. Social history. . No smoking. No alcohol use. No drug use. Family history. Mother had breast cancer. Hypertension. Endometriosis. Aunt has diabetes. Uncle has diabetes. Maternal grandmother had breast cancer and heart disorder and thyroid disorder. Maternal grandfather heart disorder. Paternal grandfather heart disorder. Maternal grandfather had lung disorder work-related. Admission Exam Per Admitting Provider General- Not in distress Head- atraumatic Eyes- PERRL. ENT- oropharynx clear Neck- supple, no JVD. Lungs- clear to auscultation , No wheezing or crackles. Heart- regular rhythm; no murmur, no gallop. Abdomen- normal bowel sounds, soft, Left CVA tenderness present, no distension seen. Extremities- no pretibial edema, no erythema seen. Neuro- alert, oriented x 3; PERRL, no facial palsy; no dysarthria;Non focal. Skin- warm & dry Principal Diagnosis Left renal colic, left renal calculi Discharge Data Allergies Allergy/AdvReac Type Severity Reaction Status Date / Time sulfamethoxazole Allergy Intermediate HIVES Verified 01/06/23 16:58 trimethoprim Allergy Intermediate HIVES Verified 01/06/23 16:58 morphine Allergy Mild Hives Verified 01/06/23 16:58 Consultations 03/09/23 08:00 Consult Urology Routine Procedures Performed Operation Date: 03/09/23 12:30 Actual Procedures p Cystoscopy, Left Retrograde Pyelogram, Ureteroscopy, Laser Lithotripsy Stone Treatment(Left) - Edin Treadwell DO s Left Stent Placement(Left) - Edin Treadwell DO Ordered Studies Laboratory Results WBC 8.34 K/ul (4.8-10.8) 03/10/23 06:02 RBC 3.55 M/uL (4.20-5.40) L 03/10/23 06:02 Hgb 10.4 g/dl (12.0-16.0) L 03/10/23 06:02 Hct 31.3 % (37.0-47.0) L 03/10/23 06:02 MCV 88.2 fL (80.0-100.0) 03/10/23 06:02 MCH 29.3 pg (25.0-34.0) 03/10/23 06:02 MCHC 33.2 g/dL (32.0-36.0) 03/10/23 06:02 RDW Std Deviation 43.0 fL (36.4-46.3) 03/10/23 06:02 RDW Coeff of Coral 13.2 % (11.5-14.5) 03/10/23 06:02 Plt Count 298 K/uL (130-400) 03/10/23 06:02 MPV 9.6 fL (9.4-12.4) 03/10/23 06:02 Immature Gran % (Auto) 0.3 % 03/09/23 07:49 Neut % (Auto) 55.2 % 03/09/23 07:49 Lymph % (Auto) 33.3 % 03/09/23 07:49 [place] % (Auto) 8.6 % 03/09/23 07:49 Eos % (Auto) 1.3 % 03/09/23 07:49 Baso % (Auto) 1.3 % 03/09/23 07:49 Neut # (Auto) 3.28 K/uL (1.40-6.50) 03/09/23 07:49 Lymph # (Auto) 1.98 K/uL (1.20-3.40) 03/09/23 07:49 [place] # (Auto) 0.51 K/uL (0.11-0.59) 03/09/23 07:49 Eos # (Auto) 0.08 K/uL (0.00-0.50) 03/09/23 07:49 Baso # (Auto) 0.08 K/uL (0.00-0.20) 03/09/23 07:49 Immature Gran # (Auto) 0.02 K/uL (0.01-0.20) 03/09/23 07:49 Sodium 139 mmol/L (136-145) 03/10/23 06:02 Potassium 4.3 mmol/L (3.5-5.1) 03/10/23 06:02 Chloride 110 mmol/L (98-107) H 03/10/23 06:02 Carbon Dioxide 23 mmol/L (21-32) 03/10/23 06:02 Anion Gap 6 (3-11) 03/10/23 06:02 BUN 8 mg/dl (6-23) 03/10/23 06:02 Creatinine 0.68 mg/dl (0.6-1.2) 03/10/23 06:02 Est Cr Clr Drug Dosing 139.3 ml/min 03/10/23 06:02 Est GFR ( Amer) 136.0 ml/min 03/10/23 06:02 Est GFR (Non-Af Amer) 117.4 ml/min 03/10/23 06:02 BUN/Creatinine Ratio 11.8 (10-20) 03/10/23 06:02 Glucose 135 mg/dl (70-99(Fasting)) H 03/10/23 06:02 Calcium 8.3 mg/dl (8.6-10.3) L 03/10/23 06:02 Ionized Calcium 1.19 mmol/L (1.12-1.32) 03/10/23 06:02 Magnesium 1.9 mg/dl (1.7-2.4) 03/09/23 07:49 Total Bilirubin 0.3 mg/dl (0.2-1.0) 03/08/23 22:25 AST 14 U/L (13-39) 03/08/23 22:25 ALT 9 U/L (7-52) 03/08/23 22:25 Alkaline Phosphatase 52 U/L (34-104) 03/08/23 22:25 Total Protein 6.9 gm/dl (6.0-8.3) 03/08/23 22:25 Albumin 4.6 gm/dl (3.4-5.0) 03/08/23 22:25 Globulin 2.3 gm/dl (2.5-4.0) L 03/08/23 22:25 Albumin/Globulin Ratio 2.0 (0.9-2) 03/08/23 22:25 25-OH Vitamin D Total 14.4 ng/ml (30-100) L 03/09/23 07:49 PTH Intact 74.8 pg/ml (12.0-88.0) 03/10/23 06:02 Urine Color Yellow 03/08/23 22:20 Urine Appearance Turbid (Clear) A 03/08/23 22:20 Urine pH 5.5 (4.5-7.5) 03/08/23 22:20 Ur Specific [place] 1.014 (1.000-1.030) 03/08/23 22:20 Urine Protein 1+ (Negative) H 03/08/23 22:20 Urine Glucose (UA) Negative (Negative) 03/08/23 22:20 Urine Ketones Negative (Negative) 03/08/23 22:20 Urine Blood 3+ (Negative) H 03/08/23 22:20 Urine Nitrite Negative (Negative) 03/08/23 22:20 Urine Bilirubin Negative (Negative) 03/08/23 22:20 Urine Urobilinogen Negative (Negative) 03/08/23 22:20 Ur Leukocyte Esterase 2+ (Negative) H 03/08/23 22:20 Urine WBC (Auto) >30 /hpf (0-5) H 03/08/23 22:20 Urine RBC (Auto) >30 /hpf (0-4) H 03/08/23 22:20 U Hyaline Cast (Auto) 0 /lpf (0-5) 03/08/23 22:20 U Epithel Cells (Auto) >30 /lpf (0-5) H 03/08/23 22:20 Urine Bacteria (Auto) 2+ (Negative) H 03/08/23 22:20 Urine Crystals Not Reportable 03/08/23 22:20 Calcium Oxalate Crystal Present (None Prsent) A 03/08/23 22:20 Urine Yeast Budding (None Prsent) A 03/08/23 22:20 POC Ur Test NEG (NEG) 03/08/23 22:17 Impressions KUB X-Ray 03/08/23 23:02 KUB HISTORY: Follow-up study in a patient with history of kidney stones left sided kidney COMPARISON: KUB 01/14/2023 FINDINGS: Nonobstructive bowel gas pattern. Cholecystectomy. Renal shadows are partially obscured by bowel gas. Moderate fecal retention of the right any colon. No renal calculi. No ureteral calculi. No pneumoperitoneum or pneumatosis. No fracture. IMPRESSION: No renal or ureteral calculi identified by radiography. ACT 112: Negative or not required by law. The above report was generated using voice recognition software. It may contain grammatical, syntax or spelling errors. Electronically signed by: Jorge Pineda M.D. 03/09/2023 7:13 AM Renal Ultrasound 03/08/23 23:02 Exam(s): US RENAL EXAM: US Retroperitoneal Limited, Renal CLINICAL HISTORY: Reason for exam: eval fopr obst uropathy on left. TECHNIQUE: Real-time limited ultrasound of the retroperitoneum with image documentation. COMPARISON: 01/14/2023. FINDINGS: Right kidney: The right kidney measures 12.1 x 5.8 x 5.6 cm. There is mild prominence of the right renal pelvis with questionable mild thickening of the wall. There is a 4 mm echogenicity in the lower pole of the right kidney, cannot exclude a small stone. There is a round anechoic structure within the right upper renal pole measuring 1.3 x 1.4 x 1.6 cm consistent with a simple cyst. Left kidney: The left kidney measures 11.2 x 6.2 x 5.9 cm. There is mild fullness of the left renal collecting system suggestive of mild hydronephrosis. There is mild distention of the proximal left ureter. There is a small echogenic focus within the proximal left ureter measuring 6.3 mm, cannot exclude a small stone. Small echogenicity within the left renal sinus which could represent volume averaging from sinus fat versus tiny stones, largest measuring 7 mm. Bladder: Urinary bladder is unremarkable with visualization of bilateral shoulder jets. IMPRESSION: 1. Mild left hydronephrosis with possible small stone in the proximal left ureter measuring 6.3 mm. 2. Volume averaging from renal sinus fat versus tiny stones within the left kidney. 3. Possible tiny stone versus artifact measuring 4 mm within the right kidney. Simple cyst within the right upper renal pole. Possible mild right pelviectasis with no distinct hydronephrosis. 4. Cannot access thickening of the wall to the right renal pelvis versus artifact which may indicate sequela of previous inflammatory process. Clinical correlation recommended. 5. If indicated, these findings may be further assessed with CT urogram with and without contrast of the abdomen and pelvis. Electronically signed by: Angelita Finn MD 03/09/23 03:00 AM Abdomen/Pelvis CT 03/09/23 08:30 CT abd pelvis wo con CLINICAL HISTORY: hydronephrosis, ureteral stone TECHNIQUE: Helical axial images of the abdomen and pelvis were obtained. Automated dose lowering techniques and/or adjustment according to patient size were utilized for this exam. This exam was performed without intravenous contrast. CT DOSE: 1359.54 mGy.cm COMPARISON: None available at the time of this dictation. FINDINGS: Lower chest: No acute abnormality. Liver: Unremarkable. No focal lesions are seen. Gallbladder and biliary tree: Patient is status post cholecystectomy. No intra- or extrahepatic biliary ductal dilation. Pancreas: Unremarkable, no focal lesions. Spleen: Unremarkable. Adrenals: Unremarkable. Kidneys and ureters: There is a 3 mm left proximal ureter stone with associated hydronephrosis. Nonobstructive stones are seen bilaterally. Bladder: Limited evaluation due to underdistention. Reproductive organs: Unremarkable. Bowel: Patient is status post gastric bypass surgery. Patient is status post appendectomy. Lymph nodes Retroperitoneal: Unremarkable. Pelvic: Unremarkable. Mesenteric: Unremarkable. Peritoneum: Normal. Vessels: Unremarkable. Abdominal wall: Unremarkable. Bones: Unremarkable. IMPRESSION: 1. Left hydronephrosis with a 3 mm proximal ureteric stone. Additional nonobstructive stones are seen. 2. Postsurgical changes of Otilia-en-Y gastric bypass without acute abnormality. 3. Additional findings as above. ACT 112: Negative or not required by law. Electronically signed by: Alexander Gutierrez M.D. 03/09/2023 9:20 AM Retrograde Pyelogram 03/09/23 11:04 FL retrograde includes kub CLINICAL HISTORY: RETROGRADE, STENT TECHNIQUE: 3 views were obtained with the C-arm in the OR with the above procedure. Total fluoroscopy time was 16 seconds. Radiation dose was 4.62 mGy. Comparison: Comparison is made to CT abdomen pelvis 03/09/2023 FINDINGS/IMPRESSION: Intraoperative images were obtained of left retrograde pyelogram with laser lithotripsy and stent placement. The stent is in satisfactory appearance. Please correlate with intraoperative fluoroscopy and operative report. ACT 112: Negative or not required by law. Electronically signed by: Alexander Gutierrez M.D. 03/09/2023 12:46 PM Hospital Course (1) Renal colic on left side: 28-year-old female with past medical history of recurrent kidney stones for the last 2 years thought to be from hyperparathyroidism, hyperparathyroidism thought to be from hypo vitamin D, history of gastric bypass, history of NAFLD, prediabetes, mood disorder, presents with with severe left flank pain since last couple of days secondary to kidney stone. Left renal colic History of recurrent renal calculi, likely secondary to vitamin D deficiency in the setting of secondary hyperparathyroidism from gastric bypass surgery Renal US-Mild left hydronephrosis with possible small stone in the proximal left ureter measuring 6.[address] ABD/pelvis-3 mm left proximal ureter stone with associated hydronephrosis Urology consulted POD#1 Cystoscopy with Left Retrograde Pyelogram, Stent Placement, Ureteroscopy, Laser Lithotripsy, and Stone basket extraction Remains afebrile, renal function stable Patient to do self stent removal at home in a day or 2. Recommend 3 days of cephalexin until stent is removed. Urine culture: > 3 types of organisms present, likely contaminant Due to yeast noted on UA, received 1 dose Diflucan History of UTI 01/2023-urine culture from 02/03 grew pansensitive E. coli Secondary hyperparathyroidism/vitamin D deficiency Dr. Gonzalez discussed with endocrinology on 03/09, Dr. Cooper -- recommends 24- hour urine calcium, once collection complete, start HCTZ 12.5 mg daily. Patient to complete 24-hour urine collection at home and take collection to outpatient [facility] lab. Ca+ 9.0 --> 7.8 --> 8.3, ionized calcium 1.1 Intact PTH 74.8 (previously 87 on 02/03/2023) Vitamin D level 14.4, continue vitamin D supplements GERD Continue PPI History of gastric bypass surgery NAFLD Mood disorder Chronic, stable Continue Zoloft and buspirone Total Time Total Time Spent Total Time Spent (In Minutes): 60 Discharge Plan Discharge Items Patient Disposition: Home - Self-Care Reason For Visit: Kidney Stone Discharge Diagnosis: Left-sided kidney stone Activity: Resume your previous activity Non-emergency contact: Primary Care Provider and Urologist Call non-emergency contact if: you have any medication questions, your symptoms worsen, your pain is not controlled and you have a fever Follow-up/Referrals: Edin Treadwell DO [Physician] - (The Urology office will contact you for a follow up appointment.) Dimas Doty DO [Primary Care Provider] - (Date & Time 03/17/2023 11:00 AM Provider Dimas Doty DO Department [facility] ) Refugio Cooper MD [Outside Practitioners] - (Date & Time 03/20/2023 4:00 PM Provider [facility] Please note that this is a video visit. You will receive an email with instructions to attend this video visit.) Diet: Regular Addtl Attending Provider Instructions: You came to the hospital for evaluation of left flank pain and was found to have a kidney stone. To treat the stone, you underwent a procedure with urology. Please see their discharge instructions below. You will be discharged on antibiotic until your stent is removed - cephalexin 500 mg 4 times daily for the next 2 days. Due to your history of hyperparathyroidism, your case was discussed with your count room clerk at [facility]. Recommended to collect a 24-hour urine for calcium, this was started in the hospital. Complete collection at home and take to outpatient [facility] lab on 03/11. Once collection is complete, you can start taking hydrochlorothiazide 12.5 mg daily for treatment of kidney stones. The endocrinology office will contact you for a follow-up appointment. Your PCP has previously prescribed Percocet for pain, you can continue to take this as needed for pain. You will also be given a prescription for oxybutynin and Pyridium to take as needed for pain. Take Flomax daily for stent discomfort. It was a pleasure taking care of you. If you need to reach a member of the [facility] hospitalist team at [facility], please call [phone]. PATRICIA Jernigan Addtl Timekeeping Supervisor Provider Instructions: The surgery you had was ureteroscopy with laser lithotripsy and stent placement. Stone was removed. A stent was left in place with the strings attached. You can remove the the stent on 03/11 or 03/12. To do this, gently pull on the strings that are coming from your urethra. Please call the urology office at [phone] with any questions or concerns. We are happy to assist you. You have a ureteral stent in place - this will need to be removed. As long as the stent is in place, you may see some blood in the urine. You may have pain in your side when you urinate. What to expect after your ureteroscopy and stone removal procedure: You may notice small pieces of stone or stone dust/gravel in your urine over the next few days. Drink plenty of liquids to help flush your system. You may notice some blood in your urine. As long as you are able to urinate, this is ok. When to call [facility] Urology at [phone]: Fever of 101F or higher Heavy bleeding Pain that is not controlled with medicine Uncontrolled vomiting Problems urinating or inability to urinate Pending Studies at Discharge: Yes Studies:: 24 hour urine for calcium Stand-Alone Forms: [facility] [employer], Smoking Cessation Medications and DC Order Prescriptions: New phenazopyridine [Pyridium] 200 mg Tablet 200 mg PO BID PRN (Reason: urinary discomfort) Qty: 14 0RF oxybutynin chloride 5 mg Tablet 5 mg PO BIDM PRN (Reason: bladder spasms) Qty: 14 0RF cephalexin 500 mg capsule 500 mg PO Q6H Qty: 10 0RF Rx Instructions: start taking 03/10 evening hydrochlorothiazide 12.5 mg tablet 12.5 mg PO DAILY Qty: 30 0RF Rx Instructions: start after 24 hour urine collection is complete Continued cyclobenzaprine 10 mg tablet 10 mg PO TID PRN (Reason: Pain) sertraline 100 mg tablet 150 mg PO DAILY buspirone 10 mg tablet 10 mg PO BID omeprazole 20 mg capsule,delayed release(DR/EC) 20 mg PO DAILY cholecalciferol (vitamin D3) 125 mcg (5,000 unit) capsule 125 mcg PO DAILY Bariatric Multivitamins 45 mg iron- 800 mcg-120 mcg Capsule 1 cap PO DAILY tamsulosin 0.4 mg capsule 0.4 mg PO DAILY Qty: 14 0RF Discharge Orders: Discharge Order (Routine); Ordered 03/10/23 Ordered By: Sveta Calabrese Admission Data Admit Date/Time: 03/09/23 03:34 Attending Provider: Anusha Gonzalez Admit Provider: James Ye Primary Care Provider: Dimas Doty Other Providers: James Ye ; Sylvain Yin ; Lobito Weeks ; Ab De Souza ; Sveta Chiu ; Edin Treadwell ; Diandra Cruz ; Otilia Echevarria ; Lenard Mack ; Maria Eugenia Ramirez ; Kj Hanley ; Jarne Holliday Other Interventions: Discharge Summary Assessment (RN) Last Done: 03/10/23 15:16 Supervising Physician Co-Signing Physician Notes I have seen and discussed the case with the collaborating VETERANS SERVICES SPECIALIST. I agree with the above H&P. I have reviewed and confirmed the patients medical history, the findings on physical examination, and the patients diagnosis and treatment plan with Bharati GOMEZ and agree with the information documented. In short, Ms. Snell is a 28 year old woman with history of gastric bypass 2021, recurrent nephrolithiasis and hyperparathyroidism undergoing work up with Endo who was admitted 03/08 due to renal colic and obstructing stones. She is following Endocrinology who is trialing Vit D replacement to assess if elevated PTH related to vitamin D insufficency. Patient recently increased from 4000U to 5000U daily on 02/06/2023 . Despite over 4 months of vitamin d supplementation, levels are 14.4. Urology following, now s/p stent placement on 03/09. Discussion over tigertext with Dr Refugio Cooper (count room clerk) was had to determine next steps to aid in patient's endocrine dyscrasia. Today, patient attempting to remove stent on her own and requesting discharge h ome depsite discussion to stay. Plan to take urine Ca test home to complete as 24 hour collection already started. Script for 12.5mg HCTZ ordered to start after completion of Urine collection. Follow up with urology for stent removal with course of keflex while stent remains intact. Encouraged patient to not remove stent by self.
[2023-03-10] MEDS ORDERED: PHENAZOPYRIDINE HCL 200 MG TAB PO SCH (21:00)
== END 2023-03-10 16:51 | disposition home or self-care (01) | DRG 661 ==
LOC: ED 22:09 → 3E 03-09 03:34

== ENCOUNTER 2023-07-10 11:16 | Observation (INO) ==
[2023-07-10] MEDS ORDERED: SODIUM CHLORIDE 0.9% 1,000 ML IV ONE ×2 (11:43→12:59)
[2023-07-10] MEDS ORDERED: fentaNYL citrate PF 100 MCG/2 ML VIAL IV ONE (11:45)
--- NOTE | 2023-07-10 11:51 | Emergency Department Note ---
History of Present Illness General Chief complaint: Infection Stated complaint: KIDNEY INFECTION GETTING WORSE Time Seen by Provider: 07/10/23 11:32 Source: patient, RN notes reviewed and old records reviewed (06/28/23-[facility] visit for current ) Mode of arrival: ambulatory Limitations: no limitations History of Present Illness Maximum Pain Intensity: 6 This patient is a 28-year-old female was here last night and diagnosed with pyelonephritis on the left and at 12 weeks. She has an ultrasound from June 12 which shows an IUP. She does have long history of kidney stones. Her ultrasound showed bilateral hydro which could be from the but no obstructive uropathy. She went home and continues to have pain and got worse so she came here. She took oxycodone x 1 and threw it up. She does have frequency but no dysuria she has suprapubic pain and pain in her left flank. No vaginal bleeding or discharge. No lower extremity pain or swelling. No trauma or injury. No chest pain or shortness of breath. She has been admitted for kidney stone related issues before and is followed by Dr. Mack and also by [facility]. Dr. Marie is her primary doctor Home Medications Medication Instructions Recorded Confirmed Type buspirone 10 mg tablet 10 mg PO HS 03/09/23 07/10/23 History cholecalciferol (vitamin D3) 125 125 mcg PO DAILY 03/09/23 07/10/23 History mcg (5,000 unit) capsule omeprazole 20 mg capsule,delayed 20 mg PO DAILY 03/09/23 07/10/23 History release sertraline 100 mg tablet 150 mg PO DAILY 03/09/23 07/10/23 History tamsulosin 0.4 mg capsule 0.4 mg PO DAILY #14 caps 03/10/23 07/10/23 Rx ondansetron 4 mg disintegrating 4 mg PO Q6H PRN nausea and 06/03/23 07/10/23 Rx tablet vomiting #12 tabs 21-iron fu-folic acid 1 caplet PO DAILY 06/05/23 07/10/23 History [ Complete] cefdinir 300 mg capsule 300 mg PO BID 10 days #20 caps 07/09/23 07/10/23 Rx cyanocobalamin (vitamin B-12) 1,000 mcg IM UD 07/10/23 07/10/23 History 1,000 mcg/mL injection solution ferrous sulfate 325 mg (65 mg 325 mg PO BID 07/10/23 07/10/23 History iron) tablet oxycodone-acetaminophen 5 mg-325 1 tab PO Q8H PRN Pain 07/10/23 07/10/23 History mg tablet promethazine 25 mg tablet 25 mg PO Q6H PRN Nausea And 07/10/23 07/10/23 History Vomiting pyridoxine (vitamin B6) 25 mg 25 mg PO DAILY 07/10/23 07/10/23 History tablet (Vitamin B-6) Allergies Allergy/AdvReac Type Severity Reaction Status Date / Time sulfamethoxazole Allergy Intermediate HIVES Verified 07/09/23 20:59 trimethoprim Allergy Intermediate HIVES Verified 07/09/23 20:59 morphine Allergy Mild Hives Verified 07/09/23 20:59 Past Med/Surg History Medical History (Updated 07/10/23 @ 19:48 by Milo Perales MD) Hyperparathyroidism Ovarian cyst Depression Kidney stones GERD (gastroesophageal reflux disease) Diverticulitis Hx of perforated bowel >10yrs ago -s/p IV antibiotics Surgical History Hx of cystoscopy w/ stent-04/2022 [facility] History of [place]-en[place] [facility] [place] of cholecystectomy 06/10/19: Grade 1 view, MAC 3, ETT 7.5 atraumatic x 1. History of colonoscopy History of appendectomy 03/16/19: Grade 2 view, Veloz 2, ETT 7.5 atraumatic x 1. History of wisdom tooth extraction PONV (postoperative nausea and vomiting) Status post laparoscopic procedure REMOVED uterine surface endometriotic tissue Previous section Family History Uncle Diabetes Mother Kidney stones Breast cancer Hx of cholecystectomy Hypertension Father Hx of cholecystectomy Other No family history of adverse response to anesthesia Denies family history of Ovarian cancer Prostate cancer Colorectal cancer Social History Smoking Status: Never smoker Second Hand Exposure: No; Do You Dip or Chew Tobacco: No; Tobacco Cessation Education Requested by Patient: No Hx Alcohol Use: No Hx Substance Use: No Preferred Language: Namibian Communication Ability: Effective Jigman Required: No Beliefs That Will Affect Care: None marital status: marital status details: Umberto Cordero pilar ( [phone] Current Living Situation: Family Current Living Situation Comment: Patient lives alone with son, no pets current occupational status: employed 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 Other Information That Helps Us Care for You: No Feels Safe at Home: Yes Safety Concerns: Feels Safe At This Time Assistive Devices: Glasses Review of Systems A total of 10 systems reviewed and were otherwise negative Physical Exam Vital Signs Vital Signs - 24 hr 07/10/23 11:27 07/10/23 12:01 07/10/23 12:02 Temperature 36.8 C Temperature Source Temporal Artery Scan Pulse Rate 111 H Pulse Rate [Apical] 99 H Pulse Rhythm [Apical] Regular Pulse Strength [Apical] Normal Respiratory Rate 18 19 Respiratory Effort / Characteristics Non-Labored Spontaneous Non-Labored Spontaneous Respiratory Depth Normal Normal Respiratory Pattern Regular Regular Blood Pressure 137/86 Blood Pressure [Left Arm] 126/80 Blood Pressure Mean 103 Blood Pressure Mean [Left Arm] 95 Blood Pressure Position [Left Arm] Pulse Oximetry 99 100 100 Oxygen Delivery Method Room Air Room Air Room Air Sepsis Recent Fever Within 48 Hours No Sepsis New/Unexplained Change in Mental Status No Sepsis Action Taken by Nursing No Action Required 07/10/23 12:11 07/10/23 12:54 07/10/23 13:00 Temperature Temperature Source Pulse Rate 99 H Pulse Rate [Apical] 91 H 96 H Pulse Rhythm [Apical] Regular Regular Pulse Strength [Apical] Normal Normal Respiratory Rate 20 19 Respiratory Effort / Characteristics Non-Labored Spontaneous Non-Labored Spontaneous Respiratory Depth Normal Normal Respiratory Pattern Regular Regular Blood Pressure Blood Pressure [Left Arm] 127/92 127/92 Blood Pressure Mean Blood Pressure Mean [Left Arm] 103 103 Blood Pressure Position [Left Arm] Sitting Pulse Oximetry 100 100 Oxygen Delivery Method Room Air Room Air Sepsis Recent Fever Within 48 Hours Sepsis New/Unexplained Change in Mental Status Sepsis Action Taken by Nursing General: Well developed well nourished [id number]-rpy-[id number] young female who appears in no acute distress, breathing comfortably on room air. Normal speech HEENT: Normal cephalic atraumatic. Pupils are equal round and reactive to light. Extraocular movements are intact. Oropharynx is pink with moist mucous membranes. No swelling of the mouth lips or tongue. Neck: Supple with a midline trachea. No meningeal signs or stiffness, no JVD or bruits. No Stridor. Chest: Clear to auscultation bilaterally. No wheezes or rhonchi. No increased work of breathing. Heart: Regular rate and rhythm without murmurs or gallops. Abdomen: Soft nontender, nondistended without rebound guarding or rigidity. Extremities: No cyanosis clubbing or edema. No calf tenderness or assymetry Spine/Back. Moderately tender to palpation when the right flank is tapped. No CVA tenderness Skin: Good turgor without rashes. Neurologic exam: Nonfocal, moves all 4 extremities symmetrically. Course Administered Medications Acetaminophen (Acetaminophen 500 Mg Tab) 1,000 mg PO Q8H [facility] Stop: 08/09/23 15:29 Last Admin: 07/10/23 15:32 Dose: 1,000 mg Documented By: MONIQUE Promethazine HCl 6.25 mg/ (Sodium Chloride) 50.25 mls @ 201 mls/hr IV Q6H PRN PRN Reason: Nausea And Vomiting Stop: 08/09/23 14:18 Last Infusion: 07/10/23 15:47 Dose: Infused Documented By: Admin: 07/10/23 15:32 Dose: 201 mls/hr Documented By: [facility] Sodium Chloride (Nss) 1,000 mls @ 80 mls/hr IV .[id number] [facility] Stop: 07/11/23 15:55 Last Admin: 07/10/23 15:32 Dose: 80 mls/hr Documented By: MONIQUE Oxycodone HCl (Oxycodone Hcl Ir 5 Mg Tab (Immediate Release)) 5 mg PO Q6H PRN PRN Reason: Severe Pain (Scale 7, 8, 9,10) Stop: 07/24/23 14:18 Last Admin: 07/10/23 14:31 Dose: 5 mg Documented By: DARIAN Discontinued Medications Fentanyl Citrate (Fentanyl Citrate Pf 100 Mcg/2 Ml Vial) 50 mcg IV NOW ONE Stop: 07/10/23 11:46 Last Admin: 07/10/23 11:57 Dose: 50 mcg Documented By: DARIAN Fentanyl Citrate (Fentanyl Citrate Pf 100 Mcg/2 Ml Vial) 50 mcg IV NOW STA Stop: 07/10/23 12:58 Last Admin: 07/10/23 13:06 Dose: 50 mcg Documented By: DARIAN Sodium Chloride (Nss) 1,000 mls @ 999 mls/hr IV .Q1H1M ONE Stop: 07/10/23 12:43 Last Infusion: 07/10/23 12:58 Dose: Infused Documented By: Admin: 07/10/23 11:57 Dose: 999 mls/hr Documented By: DARIAN Sodium Chloride (Nss) 1,000 mls @ 999 mls/hr IV .Q1H1M ONE Stop: 07/10/23 13:59 Last Infusion: 07/10/23 15:10 Dose: Infused Documented By: Admin: 07/10/23 14:09 Dose: 999 mls/hr Documented By: DARIAN Ondansetron HCl (Ondansetron Inj 2 Mg/Ml 2 Ml Vial) 4 mg IV NOW STA Stop: 07/10/23 13:00 Last Admin: 07/10/23 13:06 Dose: 4 mg Documented By: DARIAN Ondansetron HCl (Ondansetron Inj 2 Mg/Ml 2 Ml Vial) 4 mg IV NOW STA Stop: 07/10/23 17:26 Last Admin: 07/10/23 17:32 Dose: 4 mg Documented By: MONIQUE Oxycodone HCl (Oxycodone Hcl Ir 5 Mg Tab (Immediate Release)) 5 mg PO NOW STA Stop: 07/10/23 17:26 Last Admin: 07/10/23 17:32 Dose: 5 mg Documented By: MONIQUE Medical Decision Making Differential Diagnosis Kidney stone, kidney infection, , related complication, infection, sepsis, electrolyte or metabolic abnormality, musculoskeletal Medical Records Attestation: I reviewed the patient's medical records. Home Medications Current Medication List: was personally reviewed by me Laboratory Data Attestation: I reviewed the patient's lab results. 07/10/23 11:55 07/10/23 11:55 Lab Results 07/10/23 07/10/23 Range/Units 11:35 11:55 WBC 6.78 (4.8-10.8) K/ul RBC 4.03 L (4.20-5.40) M/uL Hgb 11.4 L (12.0-16.0) g/dl Hct 34.3 L (37.0-47.0) % MCV 85.1 (80.0-100.0) fL MCH 28.3 (25.0-34.0) pg MCHC 33.2 (32.0-36.0) g/dL RDW Std Deviation 41.0 (36.4-46.3) fL RDW Coeff of Coral 13.2 (11.5-14.5) % Plt Count 355 (130-400) K/uL MPV 9.8 (9.4-12.4) fL Immature Gran % (Auto) 0.4 % Neut % (Auto) 64.2 % Lymph % (Auto) 25.7 % [place] % (Auto) 8.4 % Eos % (Auto) 0.3 % Baso % (Auto) 1.0 % Neut # (Auto) 4.35 (1.40-6.50) K/uL Lymph # (Auto) 1.74 (1.20-3.40) K/uL [place] # (Auto) 0.57 (0.11-0.59) K/uL Eos # (Auto) 0.02 (0.00-0.50) K/uL Baso # (Auto) 0.07 (0.00-0.20) K/uL Immature Gran # (Auto) 0.03 (0.01-0.20) K/uL Sodium 135 L (136-145) mmol/L Potassium 3.9 (3.5-5.1) mmol/L Chloride 105 (98-107) mmol/L Carbon Dioxide 23 (21-32) mmol/L Anion Gap 7 (3-11) BUN 8 (6-23) mg/dl Creatinine 0.58 L (0.6-1.2) mg/dl Est Cr Clr Drug Dosing 163.1 ml/min Est GFR ( Amer) 143.4 ml/min Est GFR (Non-Af Amer) 123.7 ml/min BUN/Creatinine Ratio 13.8 (10-20) Glucose 88 (70-99(Fasting)) mg/dl Lactate 1.2 (0.4-2.0) mmol/L Calcium 8.8 (8.6-10.3) mg/dl Magnesium 1.8 (1.7-2.4) mg/dl Total Bilirubin 0.3 (0.2-1.0) mg/dl Direct Bilirubin 0.1 (0-0.2) mg/dl AST 14 (13-39) U/L ALT 8 (7-52) U/L Alkaline Phosphatase 48 (34-104) U/L Total Protein 6.9 (6.0-8.3) gm/dl Albumin 4.1 (3.4-5.0) gm/dl Procalcitonin < 0.05 (0-0.5) ng/ml Urine Color Yellow Urine Appearance Cloudy A (Clear) Urine pH 5.5 (4.5-7.5) Ur Specific [place] 1.023 (1.000-1.030) Urine Protein Negative (Negative) Urine Glucose (UA) Negative (Negative) Urine Ketones Negative (Negative) Urine Blood 2+ H (Negative) Urine Nitrite Negative (Negative) Urine Bilirubin Negative (Negative) Urine Urobilinogen Negative (Negative) Ur Leukocyte Esterase Negative (Negative) Urine WBC (Auto) 5-10 H (0-5) /hpf Urine RBC (Auto) >30 H (0-4) /hpf U Hyaline Cast (Auto) 1-5 (0-5) /lpf U Epithel Cells (Auto) >30 H (0-5) /lpf Urine Bacteria (Auto) Negative (Negative) MDM Narrative This patient comes in as described above. She was placed on a monitoring analyst room B2. I reviewed her records from yesterday including cultures at this point cultures are still pending. Her last dose of antibiotics was actually last evening so she is not even in the window yet to get a second dose. IV access established blood work was obtained including blood cultures and lactic acid . she was hydrated with an IV normal saline bolus I did recheck blood work and urine I gave her fentanyl 50 mcg IV she had this last night and did well with it. She assures me that she can get a ride home. Lactic acid was 1.2 which would go against sepsis/severe infection. She also has a normal white count. She has baseline anemia. She did require additional fentanyl 50 mcg IV as well as Zofran 4 mg IV. She is on IV fluids. Her labs do look reassuring but she continues to have pain her urinalysis here does not particularly look like an infection today. I did discuss the case with urology in consultation. I talked to Eduar who had talked to Dr. Mack as well. The patient has no obvious kidney stone at this point she does have bilateral hydro on yesterday's ultrasound it is possible she could have a stone there. at this point , I do not think she likely has pyelonephritis but I do think needs to be admitted/observed for pain management and observation. I have consulted the [facility] hospitalist and talked him at length about the case. They saw her in the ER for these measures. Continuous monitoring analyst: Orders placed in EMR for continuous cardiac monitoring: Upon my evaluation she was noted to be in normal sinus rhythm rate of 85 Impression & Plan Acute left flank pain, , UTI (urinary tract infection), History of renal calculi Discharge Plan Visit Data Chief Complaint: Infection Stated Complaint: KIDNEY INFECTION GETTING WORSE ED Provider: Milo Perales Discharge Problem: Acute left flank pain, , UTI (urinary tract infection), History of renal calculi Patient Disposition: Admitted As Inpatient Discharge Instructions Interventions: ED Discharge Assessment Last Done: 07/10/23 14:32 Discharge Problem: Qualifiers: Weeks of gestation: unspecified Qualified Code(s): Z34.90 - Encounter for supervision of normal , unspecified, unspecified trimester UTI (urinary tract infection) Qualifiers: Urinary tract infection type: site unspecified Hematuria presence: without hematuria Qualified Code(s): N39.0 - Urinary tract infection, site not specified
[2023-07-10 12:16] LABS: Appearance Urine Cloudy (Clear); Bacteria Urine Automated Negative (Negative); Bilirubin Urine Negative (Negative); Blood Urine 2+ (Negative); Color Urine Yellow; Epithelial Cell Urine Auto >30 /lpf (0-5); Glucose Urine UA Negative (Negative); Ketones Urine Negative (Negative); Leukocyte Esterase Urine Negative (Negative); Nitrite Urine Negative (Negative); Protein Urine Negative (Negative); RBC Urine Automated >30 /hpf (0-4); Specific Gravity Urine 1.023 (1.000-1.030); Urobilinogen Urine Negative (Negative); pH Urine 5.5 (4.5-7.5)
[2023-07-10 12:17] LABS: Basophils # (auto) 0.07 K/uL (0.00-0.20); Eosinophils # (auto) 0.02 K/uL (0.00-0.50); Eosinophils % (auto) 0.3 %; Hematocrit (blood only) 34.3 % (37.0-47.0); Hemoglobin 11.4 g/dl (12.0-16.0); Immature Granulocytes # (auto) 0.03 K/uL (0.01-0.20); Immature Granulocytes % (auto) 0.4 %; Lymphocytes # (auto) 1.74 K/uL (1.20-3.40); Lymphocytes % (auto) 25.7 %; Mean Corpuscular Hemoglobin 28.3 pg (25.0-34.0); Mean Corpuscular Hgb Conc 33.2 g/dL (32.0-36.0); Mean Corpuscular Volume 85.1 fL (80.0-100.0); Mean Platelet Volume 9.8 fL (9.4-12.4); Monocytes # (auto) 0.57 K/uL (0.11-0.59); Monocytes % (auto) 8.4 %; Neutrophils # (auto) 4.35 K/uL (1.40-6.50); Neutrophils % (auto) 64.2 %; Platelet Count 355 K/uL (130-400); RDW Coefficient of Variation 13.2 % (11.5-14.5); Red Blood Count 4.03 M/uL (4.20-5.40); White Blood Count 6.78 K/ul (4.8-10.8)
[2023-07-10 12:36] LABS: Albumin Level 4.1 gm/dl (3.4-5.0); BUN Creatinine Ratio 13.8 (10-20); Bilirubin Direct 0.1 mg/dl (0-0.2); Bilirubin,Total 0.3 mg/dl (0.2-1.0); Calcium 8.8 mg/dl (8.6-10.3); Creatinine Clr Calc Pharmacy 163.1 ml/min; Est GFR (African American) 143.4 ml/min; Est GFR (Non-African American) 123.7 ml/min; Magnesium 1.8 mg/dl (1.7-2.4); Potassium 3.9 mmol/L (3.5-5.1); Total Protein 6.9 gm/dl (6.0-8.3)
[2023-07-10] MEDS ORDERED: fentaNYL citrate PF 100 MCG/2 ML VIAL IV STA (12:57)
[2023-07-10] MEDS ORDERED: ONDANSETRON INJ 2 MG/ML 2 ML VIAL IV STA ×2 (12:59→17:25)
[2023-07-10] MEDS: oxyCODONE HCL IR 5 MG TAB (IMMEDIATE RELEASE) PO PRN ×2 (14:31→23:32)
--- NOTE | 2023-07-10 15:00 | History & Physical Report ---
Date of Service July 10, 2023 Assessment & Plan (1) Nephrolithiasis: (2) UTI (urinary tract infection): Plan: [facility] Patient presenting from home with reports of worsening left flank pain. Longstanding history of recurring kidney stones. Seen in ED yesterday and had renal ultrasound that showed 7 mm nonobstructing right renal calculi. Abnormal UA noted, patient was discharged on cefdinir and oxycodone. In the ED, labs unremarkable Pain on left however renal calculi on right -- no stones noted on the left per US 07/09 -- ?? mild pyelonephritis given abnormal UA Urine culture 07/09/2023-pinpoint growth, re-incubating Received IV ceftriaxone in ED yesterday and discharged home on cefdinir. Will resume IV ceftriaxone. Follow urine culture. IVF, pain and nausea control Urology consult (3) Hyperparathyroidism: Plan: History of secondary hyperparathyroidism with vitamin D deficiency Continue vitamin D replacement Follows with [facility] endocrinology (4) Depression: Plan: Chronic, stable Continue home meds (5) : Plan: Currently [address] Kulkarni - does not need q shift heart tones, recommends a formal ultrasound prior to discharge to ensure viability DVT PROPHYLAXIS SCDs Patient seen in collaboration with Dr. Maki. I spent a total of 75 minutes coordinating, documenting, and providing care for this patient excluding time spent in the performance of separately billed services. This included personally reviewing all current laboratories and imaging studies, medication reconciliation, outpatient chart review, and discussion with specialists. Admission and Anticipated Discharge Date Admission Date: July 10, 2023 History of Present Illness Chief Complaint: Left flank pain Primary Care Provider: Dimas Doty DO 28-year-old female with PMH GERD, recurrent renal calculi, hyperparathyroidism, depression, history of gastric bypass, and other problems listed below who presents to the ED for evaluation of left flank pain. History is obtained from the patient and review of outpatient PCP records. Patient is currently 12 weeks . Patient reports she developed left flank pain yesterday morning. Given her longstanding history of kidney stones, she was suspicious that she was passing a stone. Patient was seen in the ED yesterday and had a renal ultrasound that showed a 7 mm nonobstructing right kidney stone. UA was abnormal. Patient was given a dose of IV ceftriaxone and discharged home on cefdinir and oxycodone. Patient reports nausea and vomiting. Denies hematemesis and coffee-ground emesis. Patient was taking Zofran and Phenergan at home. Due to ongoing left flank pain today, patient presented back to the ER for reevaluation. She reports noticing some mild hematuria. No fevers or chills. She denies abdominal pain and diarrhea. No chest pain or shortness of breath. Denies lightheadedness, dizziness, diaphoresis, syncopal events. In the ED, labs are unremarkable. She was given IV fentanyl 50 mcg x 2, IV Zofran, IVF. Allergies Allergy/AdvReac Type Severity Reaction Status Date / Time sulfamethoxazole Allergy Intermediate HIVES Verified 07/09/23 20:59 trimethoprim Allergy Intermediate HIVES Verified 07/09/23 20:59 morphine Allergy Mild Hives Verified 07/09/23 20:59 Home Medications Medication Instructions Recorded Confirmed Type buspirone 10 mg tablet 10 mg PO HS 03/09/23 07/10/23 History cholecalciferol (vitamin D3) 125 125 mcg PO DAILY 03/09/23 07/10/23 History mcg (5,000 unit) capsule omeprazole 20 mg capsule,delayed 20 mg PO DAILY 03/09/23 07/10/23 History release sertraline 100 mg tablet 150 mg PO DAILY 03/09/23 07/10/23 History tamsulosin 0.4 mg capsule 0.4 mg PO DAILY #14 caps 03/10/23 07/10/23 Rx ondansetron 4 mg disintegrating 4 mg PO Q6H PRN nausea and 06/03/23 07/10/23 Rx tablet vomiting #12 tabs 21-iron fu-folic acid 1 caplet PO DAILY 06/05/23 07/10/23 History [ Complete] cefdinir 300 mg capsule 300 mg PO BID 10 days #20 caps 07/09/23 07/10/23 Rx cyanocobalamin (vitamin B-12) 1,000 mcg IM UD 07/10/23 07/10/23 History 1,000 mcg/mL injection solution ferrous sulfate 325 mg (65 mg 325 mg PO BID 07/10/23 07/10/23 History iron) tablet oxycodone-acetaminophen 5 mg-325 1 tab PO Q8H PRN Pain 07/10/23 07/10/23 History mg tablet promethazine 25 mg tablet 25 mg PO Q6H PRN Nausea And 07/10/23 07/10/23 History Vomiting pyridoxine (vitamin B6) 25 mg 25 mg PO DAILY 07/10/23 07/10/23 History tablet (Vitamin B-6) Past Med/Surg History Medical History Hyperparathyroidism Ovarian cyst Depression Kidney stones GERD (gastroesophageal reflux disease) Diverticulitis Hx of perforated bowel >10yrs ago -s/p IV antibiotics Surgical History Hx of cystoscopy w/ stent-04/2022 [facility], [place] History of Otilia-en-Y gastric bypass 6 months ago @ [facility] – [place] History of cholecystectomy 06/10/19: Grade 1 view, MAC 3, ETT 7.5 atraumatic x 1. History of colonoscopy History of appendectomy 03/16/19: Grade 2 view, Veloz 2, ETT 7.5 atraumatic x 1. History of wisdom tooth extraction PONV (postoperative nausea and vomiting) Status post laparoscopic procedure REMOVED uterine surface endometriotic tissue Previous section Family History Uncle Diabetes Mother Kidney stones Breast cancer Hx of cholecystectomy Hypertension Father Hx of cholecystectomy Other No family history of adverse response to anesthesia Denies family history of Ovarian cancer Prostate cancer Colorectal cancer Social History Smoking Status: Never smoker Second Hand Exposure: No; Do You Dip or Chew Tobacco: No; Tobacco Cessation Education Requested by Patient: No Hx Alcohol Use: No Hx Substance Use: No Preferred Language: Haitian Communication Ability: Effective Gold Buyer Required: No Beliefs That Will Affect Care: None marital status: marital status details: Umberto Cordero jose miguel ( 28) [phone] Current Living Situation: Family Current Living Situation Comment: Patient lives alone with son, no pets 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 occupational status: 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 That Helps Us Care for You: No Feels Safe at Home: Yes Safety Concerns: Feels Safe At This Time Assistive Devices: Glasses Physical Exam Constitutional: WD/WN, vitals as above no acute distress Eyes: PERRL, conjunctivae normal, anicteric sclerae ENMT: external ear and nose normal, oropharynx normal Respiratory: normal respiratory effort, lungs clear to auscultation Cardiovascular: Rate/Rhythm: regular rate and regular rhythm Vessels: normal peripheral pulses Extremities: no edema Gastrointestinal (Abdomen): normal bowel sounds, soft, nontender, no hepatosplenomegaly Musculoskeletal: no cyanosis or clubbing, extremities motor strength 5/5 Skin: no rashes, warm and dry Neurologic: PERRL, EOMI, accommodation nl, no face palsy, no dysarthria Psychiatric: A+Ox3, euthymic affect Genitourinary: + CVA tenderness (Left) Results & Data Results & Data Vital Signs (Past 12 Hours) Vital Signs Temp Pulse Pulse Resp BP BP Pulse Ox 07/10/23 14:10 93 H 19 127/82 100 07/10/23 13:00 96 H 19 127/92 100 07/10/23 12:54 91 H 20 127/92 100 07/10/23 12:11 99 H 07/10/23 12:02 99 H 19 126/80 100 07/10/23 12:01 100 07/10/23 11:27 36.8 C 111 H 18 137/86 99 O2 Del Method 07/10/23 14:10 Room Air 07/10/23 13:00 Room Air 07/10/23 12:54 Room Air 07/10/23 12:11 07/10/23 12:02 Room Air 07/10/23 12:01 Room Air 07/10/23 11:27 Room Air Laboratory Results Short CBC 07/10/23 Range/Units 11:55 WBC 6.78 (4.8-10.8) K/ul Hgb 11.4 L (12.0-16.0) g/dl Hct 34.3 L (37.0-47.0) % Plt Count 355 (130-400) K/uL BMP 07/10/23 11:55 Sodium 135 L Potassium 3.9 Chloride 105 Carbon Dioxide 23 BUN 8 Creatinine 0.58 L Glucose 88 Calcium 8.8 Liver Function 07/10/23 Range/Units 11:55 Total Bilirubin 0.3 (0.2-1.0) mg/dl Direct Bilirubin 0.1 (0-0.2) mg/dl AST 14 (13-39) U/L ALT 8 (7-52) U/L Alkaline Phosphatase 48 (34-104) U/L Albumin 4.1 (3.4-5.0) gm/dl Urine 07/10/23 Range/Units 11:35 Urine Color Yellow Urine Appearance Cloudy A (Clear) Urine pH 5.5 (4.5-7.5) Ur Specific [place] 1.023 (1.000-1.030) Urine Protein Negative (Negative) Urine Glucose (UA) Negative (Negative) Supervising Physician Co-Signing Physician Notes Pt seen and examined by myself, Jamia Maki MD on the day of service. Care was coordinated with PATRICIA Jernigan. 28yo currently about 11wks gestation with PMHx significant for recurrent kidney stones, hyperparathyroidism and Hx of gastric bypass presenting with persistent LEFT sided flank pain. Per chart review, pt saw OB on 07/02/23 and was [id number] at that time. Presented to the ED the day before this admission and was treated for a UTI and discharged home. Urine Cx still growing/pending. States that she has had persistent LEFT sided flank pain, and N/V at home. Notes hematuria as well. States she is fairly certain that it is not vaginal bleeding. Hgb 11.4, Na 135, UA this admission with only trace blood, negative for bacteria Renal US noted mild fullness of bilateral renal collecting system, nonobstructing RIGHT lower pole 7mm renal stone Afebrile, tachycardic on presentation On exam RRR, breath sounds clear, abdomen nontender, tender to even light palpation over left flank. Possible obstructive uropathy/Flank Pain- pt is currently . Further imaging with CT not recommended. Per discussion with Dr Treadwell Urology, advising unfortunately treatment in is largely symptomatic with pain medications and antiemetics. Noted that renal collecting system is generally "more open" as noted on US and allows for quicker passage. Recommending nonsurgical, conservative management. Per OB, flomax generally not recommended. Appreciate Urology and OB recs. UTI- follow previous day's urine cx. Continue rocephin for now and narrow based on culture. Hyperparathyroidism, Vit D Def - Follows with Endocrinology. AM PTH, Calcium, Vit D levels Hx of gastric bypass- consider monitoring other vitamins and minerals in setting of . Continue home supplements/ vitamins. (2) UTI (urinary tract infection) Hematuria presence: without hematuria Urinary tract infection type: site unspecified Qualified Code(s): N39.0 - Urinary tract infection, site not specified
[2023-07-10] MEDS: SODIUM CHLORIDE 0.9% 1,000 ML IV SCH (15:32)
[2023-07-10] MEDS: ACETAMINOPHEN 500 MG TAB PO SCH ×2 (15:32→23:32)
[2023-07-10] MEDS: PROMETHAZINE HCL 6.25 MG in SODIUM CHLORIDE 0.9% 50 ML IV PRN (15:32)
--- NOTE | 2023-07-10 16:42 | OB/GYN Consultation ---
Date of Consultation July 10, 2023 Assessment & Plan (1) First trimester : AARON Calculator Estimated Delivery Date Method Current WG Current Estimate 01/27/24 Ultrasound #2 10w 1d Other Estimates 01/22/24 LMP (Certain) 10w 6d 01/28/24 Ultrasound #1 10w 0d LMP: 04/17/23 : 2 Full term: 1 Premature: 0 Total Number of Induced Abortions: 0 Total Number of Spontaneous Abortions: 0 Ectopics: 0 Multiple births: 0 Number of Living Children: 1 and Delivery Plans x 1 --induction for GHTN, failed induction. desires repeat c/s LGSIL/ HPV+(neg x 3) pap at NOB visit *Recommend Colpo new FOB previous GHTN (2017)--baseline 24 hour urine, labs, baby asa. Hx of gastric bypass since last delivery.--ok with doctorate of chiropractic consult. hx of pyelo/uti/stones consult with Dr. Mack. Would hold off on prophylactic antibiotics now consider if she has issues in the early uti with treatment with keflex in this --was not a stone. I do not think her issues are obviously the cause of her obstructive uropathy she is followed by our group she has had a prior section as mentioned and history of gestational hypertension and is thus on daily baby aspirin I do not think daily monitoring of the fetus is necessary as is such an early stage I did suggest perhaps a brief ultrasound of the fetus by radiology just prior to discharge for reassurance that there is still is a heart rate with any OB questions arise we are happy to answer History of Present Illness Attending Physician: Jamia Maki MD History of Present Illness Asked to consult on early who also has obstructive uropathy related to kidney stones patient has a history of recurrent kidney stones and is well-known to the urology service. Patient was admitted with pain she currently has no vaginal bleeding her has been uncomplicated Allergies Allergy/AdvReac Type Severity Reaction Status Date / Time sulfamethoxazole Allergy Intermediate HIVES Verified 07/09/23 20:59 trimethoprim Allergy Intermediate HIVES Verified 07/09/23 20:59 morphine Allergy Mild Hives Verified 07/09/23 20:59 Home Medications Medication Instructions Recorded Confirmed Type buspirone 10 mg tablet 10 mg PO HS 03/09/23 07/10/23 History cholecalciferol (vitamin D3) 125 125 mcg PO DAILY 03/09/23 07/10/23 History mcg (5,000 unit) capsule omeprazole 20 mg capsule,delayed 20 mg PO DAILY 03/09/23 07/10/23 History release sertraline 100 mg tablet 150 mg PO DAILY 03/09/23 07/10/23 History tamsulosin 0.4 mg capsule 0.4 mg PO DAILY #14 caps 03/10/23 07/10/23 Rx ondansetron 4 mg disintegrating 4 mg PO Q6H PRN nausea and 06/03/23 07/10/23 Rx tablet vomiting #12 tabs 21-iron fu-folic acid 1 caplet PO DAILY 06/05/23 07/10/23 History [ Complete] cefdinir 300 mg capsule 300 mg PO BID 10 days #20 caps 07/09/23 07/10/23 Rx cyanocobalamin (vitamin B-12) 1,000 mcg IM UD 07/10/23 07/10/23 History 1,000 mcg/mL injection solution ferrous sulfate 325 mg (65 mg 325 mg PO BID 07/10/23 07/10/23 History iron) tablet oxycodone-acetaminophen 5 mg-325 1 tab PO Q8H PRN Pain 07/10/23 07/10/23 History mg tablet promethazine 25 mg tablet 25 mg PO Q6H PRN Nausea And 07/10/23 07/10/23 History Vomiting pyridoxine (vitamin B6) 25 mg 25 mg PO DAILY 07/10/23 07/10/23 History tablet (Vitamin B-6) Patient History Medical History (Updated 07/10/23 @ 15:10 by PATRICIA Jernigan) Hyperparathyroidism Ovarian cyst Depression Kidney stones GERD (gastroesophageal reflux disease) Diverticulitis Hx of perforated bowel >10yrs ago -s/p IV antibiotics Surgical History Hx of cystoscopy w/ stent-04/2022 [facility] History of Otilia-en-Y gastric bypass 6 months ago @ [facility] [place] History of cholecystectomy 06/10/19: Grade 1 view, MAC 3, ETT 7.5 atraumatic x 1. History of colonoscopy History of appendectomy 03/16/19: Grade 2 view, Veloz 2, ETT 7.5 atraumatic x 1. History of wisdom tooth extraction PONV (postoperative nausea and vomiting) Status post laparoscopic procedure REMOVED uterine surface endometriotic tissue Previous section Family History Uncle Diabetes Mother Kidney stones Breast cancer Hx of cholecystectomy Hypertension Father Hx of cholecystectomy Other No family history of adverse response to anesthesia Denies family history of Ovarian cancer Prostate cancer Colorectal cancer Social History Smoking Status: Never smoker Second Hand Exposure: No; Do You Dip or Chew Tobacco: No; Tobacco Cessation Education Requested by Patient: No Hx Alcohol Use: No Hx Substance Use: No Preferred Language: Danish Communication Ability: Effective Activity Therapy Teacher Required: No Beliefs That Will Affect Care: None marital status: marital status details: Umberto Cordero jose miguel ( 28) [phone] Current Living Situation: Family Current Living Situation Comment: Patient lives alone with son, no pets current occupational status: employed 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 Other Information That Helps Us Care for You: No Feels Safe at Home: Yes Safety Concerns: Feels Safe At This Time Assistive Devices: Glasses Physical Exam Constitutional: WD/WN, vitals as above well developed and well nourished Respiratory: normal respiratory effort, lungs clear to auscultation normal respiratory effort Cardiovascular: RRR, no murmur, no edema Gastrointestinal (Abdomen): normal bowel sounds, soft, nontender, no hepatosplenomegaly Results & Data Vital Signs (Past 12 Hours) Vital Signs Temp Pulse Pulse Pulse Resp BP BP 07/10/23 14:56 98.2 F 87 22 122/81 07/10/23 14:10 93 H 19 127/82 07/10/23 13:00 96 H 19 127/92 07/10/23 12:54 91 H 20 127/92 07/10/23 12:11 99 H 07/10/23 12:02 99 H 19 126/80 07/10/23 12:01 07/10/23 11:27 98.2 F 111 H 18 137/86 Pulse Ox O2 Del Method 07/10/23 14:56 100 Room Air 07/10/23 14:10 100 Room Air 07/10/23 13:00 100 Room Air 07/10/23 12:54 100 Room Air 07/10/23 12:11 07/10/23 12:02 100 Room Air 07/10/23 12:01 100 Room Air 07/10/23 11:27 99 Room Air PG Care Time/CCT Total # of Minutes Spent Total Time Spent with Patient: Total time spent is greater than 50% in coordination of care (as documented) at patient's floor/unit and/or counseling patient: Coding Level of Care Code 77690 OFFICE CONSULT LVL Diagnoses First trimester Z34.91
[2023-07-10] MEDS ORDERED: oxyCODONE HCL IR 5 MG TAB (IMMEDIATE RELEASE) PO STA (17:25)
--- NOTE | 2023-07-10 20:01 | Urology Consultation ---
Date of Consultation July 10, 2023 Assessment & Plan (1) History of renal calculi: The patient has been admitted on the hospitalist service. From a urologic perspective we recommend the following: Will be preferable to avoid operative/cystoscopic intervention due to the patient's Would recommend providing hydration with IV fluids Would recommend providing analgesics and antiemetics The patient did have an abnormal urinalysis. Urine culture has been sent and thus far shows pinpoint growth and is reintubating. She is currently receiving Rocephin. Antibiotic should be tailored based on these culture results Will continue to follow along with the patient is hospitalized but again would prefer conservative treatment due to the patient's underlying History of Present Illness Reason for Consultation: Nephrolithiasis Attending Physician: Jamia Maki MD History of Present Illness This is a 28-year-old female who was admitted to the hospital secondary to flank pain. Patient says that she has been experiencing left flank pain for approximately 3 days that has gotten progressively worse necessitating admission. She does report associated nausea and vomiting. She also reports dysuria with blood in her urine. She notes that she is having urinary frequency and feels as though she cannot empty her bladder completely. Patient notes that she was at home and her temperatures have been as high as 99.3. She does note that she does have a history of kidney stones. She notes that she is able to pass stones at times but has had procedural intervention done as wellher most recent procedure was in March 2023 at which time the patient underwent a cystoscopy with a laser lithotripsy, stone basket extraction, and a left ureteral stent placement. Patient also added that she does have known hyperparathyroidism and follows with endocrinology. She notes that she was previously taking a diuretic but further added that she is now (12 weeks) and because of this no other active intervention regarding her kidney stones or hyperparathyroidism have been undertaken. Since admission to the hospital the patient has had labs performed. CBC reveals white blood cell count platelet count normal. Hemoglobin and hematocrit are 11.4 and 34.3. Chemistry profile showed sodium is 134 with a normal potassium. BUN and creatinine were both nonelevated. Patient's calcium level was within the normal range. Urinalysis did show cloudy urine which had 2+ blood. The specimen was negative for nitrites and leukocyte Estrace. There were 5-10 white blood cells per high-power field and it was negative for bacteria. At the time of my interview she was resting comfortably bed and she was no distress. Available imaging was reviewed. The patient's most recent imaging of the renal system with a renal ultrasound performed on 07/09/2023. This study showed the patient had some fullness of the right renal collecting system. There is a suspected nonobstructing 7 mm right kidney stone in the lower pole of the right kidney. There is also some mild fullness of the left renal collecting system with no stones visualized. Allergies Allergy/AdvReac Type Severity Reaction Status Date / Time sulfamethoxazole Allergy Intermediate HIVES Verified 07/09/23 20:59 trimethoprim Allergy Intermediate HIVES Verified 07/09/23 20:59 morphine Allergy Mild Hives Verified 07/09/23 20:59 Home Medications Medication Instructions Recorded Confirmed Type buspirone 10 mg tablet 10 mg PO HS 03/09/23 07/10/23 History cholecalciferol (vitamin D3) 125 125 mcg PO DAILY 03/09/23 07/10/23 History mcg (5,000 unit) capsule omeprazole 20 mg capsule,delayed 20 mg PO DAILY 03/09/23 07/10/23 History release sertraline 100 mg tablet 150 mg PO DAILY 03/09/23 07/10/23 History tamsulosin 0.4 mg capsule 0.4 mg PO DAILY #14 caps 03/10/23 07/10/23 Rx ondansetron 4 mg disintegrating 4 mg PO Q6H PRN nausea and 06/03/23 07/10/23 Rx tablet vomiting #12 tabs 21-iron fu-folic acid 1 caplet PO DAILY 06/05/23 07/10/23 History [ Complete] cefdinir 300 mg capsule 300 mg PO BID 10 days #20 caps 07/09/23 07/10/23 Rx cyanocobalamin (vitamin B-12) 1,000 mcg IM UD 07/10/23 07/10/23 History 1,000 mcg/mL injection solution ferrous sulfate 325 mg (65 mg 325 mg PO BID 07/10/23 07/10/23 History iron) tablet oxycodone-acetaminophen 5 mg-325 1 tab PO Q8H PRN Pain 07/10/23 07/10/23 History mg tablet promethazine 25 mg tablet 25 mg PO Q6H PRN Nausea And 07/10/23 07/10/23 History Vomiting pyridoxine (vitamin B6) 25 mg 25 mg PO DAILY 07/10/23 07/10/23 History tablet (Vitamin B-6) Patient History Medical History Hyperparathyroidism Ovarian cyst Depression Kidney stones GERD (gastroesophageal reflux disease) Diverticulitis Hx of perforated bowel >10yrs ago -s/p IV antibiotics Surgical History Hx of cystoscopy w/ stent-04/2022 [facility] History of Otilia-en-Y gastric bypass [address] [facility] [place] History of cholecystectomy 06/10/19: Grade 1 view, MAC 3, ETT 7.5 atraumatic x 1. History of colonoscopy History of appendectomy 03/16/19: Grade 2 view, Veloz 2, ETT 7.5 atraumatic x 1. History of wisdom tooth extraction PONV (postoperative nausea and vomiting) Status post laparoscopic procedure REMOVED uterine surface endometriotic tissue Previous section Family History Uncle Diabetes Mother Kidney stones Breast cancer Hx of cholecystectomy Hypertension Father Hx of cholecystectomy Other No family history of adverse response to anesthesia Denies family history of Ovarian cancer Prostate cancer Colorectal cancer Social History Smoking Status: Never smoker Second Hand Exposure: No; Do You Dip or Chew Tobacco: No; Tobacco Cessation Education Requested by Patient: No Hx Alcohol Use: No Hx Substance Use: No Preferred Language: Kyrgyz Communication Ability: Effective Pulley Maintainer Required: No Beliefs That Will Affect Care: None marital status: marital status details: Umberto Cordero jose miguel ( [phone] Current Living Situation: Family Current Living Situation Comment: Patient lives alone with son, no pets current occupational status: 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 That Helps Us Care for You: No Feels Safe at Home: Yes Safety Concerns: Feels Safe At This Time Assistive Devices: Glasses Review of Systems Constitutional: + fever (Low-grade); no chills Eyes: + corrective lenses Ear, Nose, Mouth, Throat: no hearing loss Respiratory: no cough and no dyspnea Cardiovascular: no chest pain Gastrointestinal: + nausea and + vomiting; no abdominal pa in Genitourinary: as per Subjective / HPI Musculoskeletal: + back pain (Bilateral flank) Integumentary: no rash Neurologic: no localized weakness Physical Exam Constitutional: WD/WN, vitals as above Eyes: no conjunctival abnormality ENMT: Ears: no hearing impairment and no external ear abnormality Mouth: no oropharynx abnormality Neck: trachea midline Respiratory: normal respiratory effort; no respiratory distress and no labored breathing Cardiovascular: Rate/Rhythm: regular rate and regular rhythm Gastrointestinal (Abdomen): Soft and nontender Musculoskeletal: No calf tenderness Skin: no rashes Neurologic: moves all extremities Psychiatric: A+Ox3, euthymic affect Genitourinary: Mild bilateral CVA tenderness with percussion Results & Data Vital Signs (Past 12 Hours) Vital Signs Temp Pulse Pulse Pulse Resp BP BP 07/10/23 14:56 36.8 C 87 22 122/81 07/10/23 14:10 93 H 19 127/82 07/10/23 13:00 96 H 19 127/92 07/10/23 12:54 91 H 20 127/92 07/10/23 12:11 99 H 07/10/23 12:02 99 H 19 126/80 07/10/23 12:01 07/10/23 11:27 36.8 C 111 H 18 137/86 Pulse Ox O2 Del Method 07/10/23 14:56 100 Room Air 07/10/23 14:10 100 Room Air 07/10/23 13:00 100 Room Air 07/10/23 12:54 100 Room Air 07/10/23 12:11 07/10/23 12:02 100 Room Air 07/10/23 12:01 100 Room Air 07/10/23 11:27 99 Room Air PG Care Time/CCT Total # of Minutes Spent Total Time Spent with Patient: Total time spent is greater than 50% in coordination of care (as documented) at patient's floor/unit and/or counseling patient: Coding Level of Care Code 06410 OFFICE CONSULT LVL Diagnoses History of renal calculi Z87.442
[2023-07-10] MEDS: FERROUS SULFATE 325 MG TAB PO SCH (20:46)
[2023-07-10] MEDS: cefTRIAXone SODIUM 2,000 MG in DEXTROSE 5 % MINI-B 50 ML IV SCH (20:46)
[2023-07-10] MEDS: busPIRone 5 MG TAB PO SCH (20:47)
[2023-07-11] MEDS: SODIUM CHLORIDE 0.9% 1,000 ML IV SCH (04:17)
[2023-07-11] MEDS: PROMETHAZINE HCL 6.25 MG in SODIUM CHLORIDE 0.9% 50 ML IV PRN ×2 (04:51→19:04)
[2023-07-11 06:12] LABS: Hematocrit (blood only) 27.7 % (37.0-47.0); Hemoglobin 9.2 g/dl (12.0-16.0); Mean Corpuscular Hemoglobin 28.2 pg (25.0-34.0); Mean Corpuscular Hgb Conc 33.2 g/dL (32.0-36.0); Mean Platelet Volume 9.8 fL (9.4-12.4); Platelet Count 279 K/uL (130-400); RDW Coefficient of Variation 13.4 % (11.5-14.5); RDW Standard Deviation 41.9 fL (36.4-46.3); Red Blood Count 3.26 M/uL (4.20-5.40); White Blood Count 5.86 K/ul (4.8-10.8)
[2023-07-11 06:18] LABS: Anion Gap 6 (3-11); BUN Creatinine Ratio 14.3 (10-20); Blood Urea Nitrogen 6 mg/dl (6-23); Carbon Dioxide 21 mmol/L (21-32); Chloride 110 mmol/L (98-107); Creatinine Clr Calc Pharmacy 226.3 ml/min; Est GFR (African American) > 150.0 ml/min; Est GFR (Non-African American) 137.5 ml/min; Glucose 89 mg/dl (70-99(Fasting)); Potassium 3.8 mmol/L (3.5-5.1); Sodium 137 mmol/L (136-145)
[2023-07-11] MEDS: oxyCODONE HCL IR 5 MG TAB (IMMEDIATE RELEASE) PO PRN ×3 (06:33→18:30)
--- NOTE | 2023-07-11 06:41 | Electrocardiogram Report ---
Test Reason : Blood Pressure : / mmHG Vent. Rate : 085 BPM Atrial Rate : 085 BPM P-R Int : 132 ms QRS Dur : 080 ms QT Int : 346 ms P-R-T Axes : 018 040 015 degrees QTc Int : 411 ms Normal sinus rhythm When compared with ECG of 06-JAN-2023 13:40, No significant change was found Confirmed by Zach Tavera ([id number]) on 07/11/2023 6:41:14 AM Referred By: REFERRED SELF Confirmed By:Zach Tavera
--- NOTE | 2023-07-11 07:53 | Hospitalist Progress Note ---
Date of Service July 11, 2023 Assessment & Plan (1) Nephrolithiasis: (2) UTI (urinary tract infection): Plan: Admit to [facility] Patient presenting from home with reports of worsening left flank pain. Longstanding history of recurring kidney stones. Seen in ED yesterday and had renal ultrasound that showed 7 mm nonobstructing right renal calculi. Abnormal UA noted, patient was discharged on cefdinir and oxycodone. In the ED, labs unremarkable Pain on left however renal calculi on right -- no stones noted on the left per US 07/09 -- ?? poss. small stone on the left not detected by US. poss. mild pyelonephritis given abnormal UA Urine culture 07/09/2023- more than 3 organisms, high counts, re-collection recommended. Repeat UA/ ucultx Received IV ceftriaxone in ED and discharged home on cefdinir. Resumed IV ceftriaxone on current admission. Follow urine culture. IVF, pain and nausea control Urology consulted- no plan for intervention at this time (3) Hyperparathyroidism: Plan: History of secondary hyperparathyroidism with vitamin D deficiency Continue vitamin D replacement Follows with [facility] endocrinology (4) Depression: Plan: Chronic, stable Continue home meds (5) : Plan: Currently 12 weeks admitting provider discussed with Dr. Kulkarni - does not need q shift heart tones, recommends a formal ultrasound prior to discharge to ensure viability DVT PROPHYLAXIS SCDs Admission and Anticipated Discharge Date Admission Date: July 10, 2023 Subjective Pt seen in follow up of flank pain, 12 weeks, hx of renal stones [employer] and urology consulted Currently on Rocephin for UTI Sitting up in bed in no acute distress Says she gets more flank pain after urination Says yesterday pain was not well-controlled with pain meds however today is better No fever chills chest pain shortness of breath, no nausea vomiting Review of Systems Review of Systems: All systems reviewed & are unremarkable except as noted in Subjective Physical Exam Physical Exam: Constitutional: WD/WN, vitals as a debbie no acute dis tress Eyes: PERRL, conjunctiva e normal, anicteri c sclerae ENMT: external ear and n ose normal, oropha rynx normal Respiratory: normal respiratory effort, lungs kelsey ar to auscultation Cardiovascular: Rate/Rhythm: regul ar rate and regula r rhythm Vessels: normal peripheral pulses Extremiti es: no edema Gastrointestinal ( Abdomen): normal bowel sound s, soft, nontender Musculoskeletal: extremities motor strength 5/5 Skin: no rashes, warm an d dry Neurologic: PERRL, EOMI, no fa ce palsy, no dysar thria, moves extre mities Psychiatric: A+Ox3, euthymic af fect Genitourinary: + CVA tenderness (Left) Results & Data Results & Data Vital Signs (Past 12 Hours) Vital Signs Temp Pulse Resp BP Pulse Ox O2 Del Method 07/10/23 20:07 37.0 C 97 H 18 126/82 97 Room Air Laboratory Results 07/11/23 07/10/23 07/10/23 Range/Units 05:23 11:55 11:35 WBC 5.86 6.78 (4.8-10.8) K/ul RBC 3.26 L 4.03 L (4.20-5.40) M/uL Hgb 9.2 L 11.4 L (12.0-16.0) g/dl Hct 27.7 L 34.3 L (37.0-47.0) % MCV 85.0 85.1 (80.0-100.0) fL MCH 28.2 28.3 (25.0-34.0) pg MCHC 33.2 33.2 (32.0-36.0) g/dL RDW Std Deviation 41.9 41.0 (36.4-46.3) fL RDW Coeff of [place] 13.4 13.2 (11.5-14.5) % Plt Count 279 355 (130-400) K/uL MPV 9.8 9.8 (9.4-12.4) fL Immature Gran % (Auto) 0.4 % Neut % (Auto) 64.2 % Lymph % (Auto) 25.7 % [place] % (Auto) 8.4 % Eos % (Auto) 0.3 % Baso % (Auto) 1.0 % Neut # (Auto) 4.35 (1.40-6.50) K/uL Lymph # (Auto) 1.74 (1.20-3.40) K/uL [place] # (Auto) 0.57 (0.11-0.59) K/uL Eos # (Auto) 0.02 (0.00-0.50) K/uL Baso # (Auto) 0.07 (0.00-0.20) K/uL Immature Gran # (Auto) 0.03 (0.01-0.20) K/uL Sodium 137 135 L (136-145) mmol/L Potassium 3.8 3.9 (3.5-5.1) mmol/L Chloride 110 H 105 (98-107) mmol/L Carbon Dioxide 21 23 (21-32) mmol/L Anion Gap 6 7 (3-11) BUN 6 8 (6-23) mg/dl Creatinine 0.42 L 0.58 L (0.6-1.2) mg/dl Est Cr Clr Drug Dosing 226.3 163.1 ml/min Est GFR ( Amer) > 150.0 143.4 ml/min Est GFR (Non-Af Amer) 137.5 123.7 ml/min BUN/Creatinine Ratio 14.3 13.8 (10-20) Glucose 89 88 (70-99(Fasting)) mg/dl Lactate 1.2 (0.4-2.0) mmol/L Calcium 8.0 L 8.8 (8.6-10.3) mg/dl Magnesium 1.8 (1.7-2.4) mg/dl Total Bilirubin 0.3 (0.2-1.0) mg/dl Direct Bilirubin 0.1 (0-0.2) mg/dl AST 14 (13-39) U/L ALT 8 (7-52) U/L Alkaline Phosphatase 48 (34-104) U/L Total Protein 6.9 (6.0-8.3) gm/dl Albumin 4.1 (3.4-5.0) gm/dl 25-OH Vitamin D Total 12.4 L (30-100) ng/ml Procalcitonin < 0.05 (0-0.5) ng/ml PTH Intact 50.9 (12.0-88.0) pg/ml Urine Color Yellow Urine Appearance Cloudy A (Clear) Urine pH 5.5 (4.5-7.5) Ur Specific [place] 1.023 (1.000-1.030) Urine Protein Negative (Negative) Urine Glucose (UA) Negative (Negative) Urine Ketones Negative (Negative) Urine Blood 2+ H (Negative) Urine Nitrite Negative (Negative) Urine Bilirubin Negative (Negative) Urine Urobilinogen Negative (Negative) Ur Leukocyte Esterase Negative (Negative) Urine WBC (Auto) 5-10 H (0-5) /hpf Urine RBC (Auto) >30 H (0-4) /hpf U Hyaline Cast (Auto) 1-5 (0-5) /lpf U Epithel Cells (Auto) >30 H (0-5) /lpf Urine Bacteria (Auto) Negative (Negative) Medications Administered Current Inpatient Medications Acetaminophen (Acetaminophen 500 Mg Tab) 1,000 mg PO Q8H [facility] Stop: 08/09/23 15:29 Last Admin: 07/10/23 23:32 Dose: 1,000 mg Buspirone HCl (Buspirone 5 Mg Tab) 10 mg PO HS [facility] Stop: 08/09/23 20:59 Last Admin: 07/10/23 20:47 Dose: 10 mg Ferrous Sulfate (Ferrous Sulfate 325 Mg Tab) 325 mg PO BID [facility] Stop: 08/09/23 20:59 Last Admin: 07/10/23 20:46 Dose: 325 mg Promethazine HCl 6.25 mg/ (Sodium Chloride) 50.25 mls @ 201 mls/hr IV Q6H PRN PRN Reason: Nausea And Vomiting Stop: 08/09/23 14:18 Last Infusion: 07/11/23 05:06 Dose: Infused Ceftriaxone Sodium 2,000 mg/ (Dextrose) 50 mls @ 100 mls/hr IV Q24H [facility]; Protocol Stop: 07/15/23 19:59 Last Infusion: 07/10/23 21:17 Dose: Infused Sodium Chloride (Nss) 1,000 mls @ 125 mls/hr IV .Q8H [facility] Stop: 07/11/23 11:44 Last Admin: 07/11/23 04:17 Dose: 80 mls/hr Oxycodone HCl (Oxycodone Hcl Ir 5 Mg Tab (Immediate Release)) 5 mg PO Q6H PRN PRN Reason: Severe Pain (Scale 7, 8, 9,10) Stop: 07/24/23 14:18 Last Admin: 07/11/23 06:33 Dose: 5 mg Pantoprazole Sodium (Pantoprazole 40 Mg Tab) 40 mg PO DAILY [facility] Stop: 08/10/23 08:59 Prenat Multivit/Rooks/Iron/Folic Ac ( Vitamin 1 Tab) 1 tab PO DAILY [facility] Stop: 08/10/23 08:59 Sertraline HCl (Sertraline Hcl 100 Mg Tablet) 150 mg PO DAILY [facility] Stop: 08/10/23 08:59 Vitamin D (Cholecalciferol 125 Mcg (5,000 Units) Tab) 125 mcg PO DAILY [facility] Stop: 08/10/23 08:59 (2) UTI (urinary tract infection) Hematuria presence: without hematuria Urinary tract infection type: site unspecified Qualified Code(s): N39.0 - Urinary tract infection, site not specified (5) Weeks of gestation: unspecified Qualified Code(s): Z34.90 - Encounter for supervision of normal , unspecified, unspecified trimester
[2023-07-11] MEDS: PRENATAL VITAMIN 1 TAB PO SCH (10:00)
[2023-07-11] MEDS: SERTRALINE HCL 100 MG TABLET PO SCH (10:00)
[2023-07-11] MEDS: CHOLECALCIFEROL 125 MCG (5,000 UNITS) TAB PO SCH (10:01)
[2023-07-11] MEDS: ACETAMINOPHEN 500 MG TAB PO SCH ×2 (10:01→17:22)
[2023-07-11] MEDS: FERROUS SULFATE 325 MG TAB PO SCH ×2 (10:02→21:03)
[2023-07-11] MEDS: PANTOprazole 40 MG TAB PO SCH (10:02)
--- NOTE | 2023-07-11 10:44 | Urology Progress Note ---
Date of Service July 11, 2023 Assessment & Plan (1) Acute left flank pain: (2) History of renal calculi: (3) First trimester : Plan Patient with significant pelvic pain and renal colic. Largely on the left side. Well-known patient with history of stone disease. Had interventions on stones in the past. Has previously had obstructing stones on the left side. Current imaging was reviewed. Lab work was all reviewed including the patient's vitals and physical exam. Creatinine is currently stable at 0.42. White count is 5.86. Patient is not experiencing significant fevers or chills. Is having episodes of considerable pelvic pain coming in waves. Similar to previous stones. Extensive conversation today about different options. Discussed options for monitoring. Patient is still having significant issues. Did discuss limited options for medications during . Discussed limited options for intervention due to risks to both her and the fetus. Reviewed extensively other options and concerns. Also discussed possibility of stents however did discuss the possible issues related stents especially throughout the . Discussed different options moving forward. Discussed possible stone passage. Discussed spontaneous passage. Discussed possible need for further monitoring over time. Patient is undergoing IV hydration. Has been working on oral hydration. Has been able to manage with pain medication. Reviewed options to monitor. Would recommend continued monitoring. If patient develops significant renal failure or develops acute febrile illness suspicious for pyelonephritis would then consider possible intervention versus nephrostomy tubes versus other intervention. Otherwise we will plan for continued supportive care for spontaneous passage as well as close monitoring. Will plan to have patient follow-up in approximately 3 to 4 weeks with renal ultrasound to reevaluate. Admission and Anticipated Discharge Date Admission Date: July 10, 2023 Subjective Patient admitted with stone and discomfort. Patient is . Is being followed by OB as well as the hospitalist team. Has history of kidney stones and previous intervention on stones. Does have bilateral hydro on imaging. Stone is visible in the right kidney. Patient is largely experiencing left flank pain and discomfort. Has previously had significant obstructing stone on the left side. Patient is afebrile. Has been undergoing maximum expulsion therapy with oral medications, IV medications as tolerated with , IV fluids, and oral intake. Is doing better without considerable increase in pain or major issues. Has still been having episodes of flank pain and pelvic pain and discomfort. Has not developed severe vomiting or other issues. Has not experienced fever or chills. Has been tolerating oral medications. Is tolerating fluids. Has noticed some frequency and urgency. Has not had severe/uncontrollable pain in the back and flank. Does have occasional burning and irritation. No severe episodes or major changes. Patient does not believe the passed a stone. Has not passed a large amount of blood or debris that may be the stone. Review of Systems Review of Systems: All systems reviewed & are unremarkable except as noted in HPI & below Physical Exam Physical Exam: General: Alert in no acute distress. HEENT: Normocephalic Atraumatic. Inspection normal. Cranial Nerves 2-12 Grossly intact. Normal inspection of face. Normal inspection of neck. Psychologic: Normal affect. Respiratory: Nonlabored. No use of accessory muscles. No tachypnea or dyspnea. Cardiovascular: No tachycardia Skin: [place] and Dry. No rashes or visible lesions. Extremities/Lymphatics: No edema Abdomen: Soft Non-distended. No rebound or guarding. Results & Data Vital Signs (Past 12 Hours) Vital Signs Temp Pulse Resp BP Pulse Ox O2 Del Method 07/11/23 08:26 36.8 C 95 H 17 111/72 95 Room Air PG Care Time/CCT Total # of Minutes Spent Total Time Spent with Patient: Total time spent is greater than 50% in coordination of care (as documented) at patient's floor/unit and/or counseling patient: Coding Level of Care Code 79348 SUB INP/OBS CARE 3/50MIN Diagnoses Acute left flank pain R10.9 History of renal calculi Z87.442 First trimester Z34.91
[2023-07-11] MEDS: cefTRIAXone SODIUM 2,000 MG in DEXTROSE 5 % MINI-B 50 ML IV SCH (21:03)
[2023-07-11] MEDS: busPIRone 5 MG TAB PO SCH (21:03)
[2023-07-12] MEDS: ACETAMINOPHEN 500 MG TAB PO SCH ×4 (00:43→14:19)
[2023-07-12] MEDS: oxyCODONE HCL IR 5 MG TAB (IMMEDIATE RELEASE) PO PRN ×3 (00:48→14:19)
[2023-07-12] MEDS: PROMETHAZINE HCL 6.25 MG in SODIUM CHLORIDE 0.9% 50 ML IV PRN (01:59)
[2023-07-12 06:13] LABS: Hematocrit (blood only) 34.5 % (37.0-47.0); Hemoglobin 11.1 g/dl (12.0-16.0); Mean Corpuscular Hemoglobin 27.5 pg (25.0-34.0); Mean Corpuscular Hgb Conc 32.2 g/dL (32.0-36.0); Mean Corpuscular Volume 85.4 fL (80.0-100.0); Mean Platelet Volume 9.7 fL (9.4-12.4); Platelet Count 332 K/uL (130-400); RDW Coefficient of Variation 13.2 % (11.5-14.5); RDW Standard Deviation 40.9 fL (36.4-46.3); Red Blood Count 4.04 M/uL (4.20-5.40); White Blood Count 7.71 K/ul (4.8-10.8)
[2023-07-12 06:29] LABS: Anion Gap 8 (3-11); BUN Creatinine Ratio 18.6 (10-20); Blood Urea Nitrogen 8 mg/dl (6-23); Calcium 8.6 mg/dl (8.6-10.3); Carbon Dioxide 22 mmol/L (21-32); Chloride 107 mmol/L (98-107); Est GFR (African American) > 150.0 ml/min; Est GFR (Non-African American) 136.5 ml/min; Glucose 80 mg/dl (70-99(Fasting)); Magnesium 1.9 mg/dl (1.7-2.4); Phosphorus 3.9 mg/dl (2.5-4.9); Potassium 3.7 mmol/L (3.5-5.1); Sodium 137 mmol/L (136-145)
[2023-07-12] MEDS: PANTOprazole 40 MG TAB PO SCH (08:10)
[2023-07-12] MEDS: FERROUS SULFATE 325 MG TAB PO SCH (08:10)
[2023-07-12] MEDS: CHOLECALCIFEROL 125 MCG (5,000 UNITS) TAB PO SCH (08:10)
[2023-07-12] MEDS: SERTRALINE HCL 100 MG TABLET PO SCH (08:10)
[2023-07-12] MEDS: PRENATAL VITAMIN 1 TAB PO SCH (08:10)
[2023-07-12] MEDS ORDERED: oxyCODONE HCL IR 5 MG TAB (IMMEDIATE RELEASE) PO STA (08:54)
[2023-07-12] MEDS ORDERED: SODIUM CHLORIDE 0.9% 1,000 ML IV SCH (09:00)
--- NOTE | 2023-07-12 09:00 | Hospitalist Progress Note ---
Date of Service July 12, 2023 Assessment & Plan (1) Nephrolithiasis: (2) UTI (urinary tract infection): Plan: Admit to [facility] Patient presenting from home with reports of worsening left flank pain. Longstanding history of recurring kidney stones. Seen in ED yesterday and had renal ultrasound that showed 7 mm nonobstructing right renal calculi. Abnormal UA noted, patient was discharged on cefdinir and oxycodone. In the ED, labs unremarkable Pain on left however renal calculi on right -- no stones noted on the left per US 07/09 -- ?? poss. small stone on the left not detected by US. poss. mild pyelonephritis given abnormal UA Urine culture 07/09/2023- more than 3 organisms, high counts, re-collection recommended. Repeat UA/ ucultx - negative Received IV ceftriaxone in ED and discharged home on cefdinir. Resumed IV ceftriaxone on current admission. Repeat urine culture negative. IVF, pain and nausea control Urology consulted- no plan for intervention at this time Plan to DC home - finish PO antibiotics as prescribed in ED. (3) Hyperparathyroidism: Plan: History of secondary hyperparathyroidism with vitamin D deficiency Continue vitamin D replacement Follows with [facility] endocrinology (4) Depression: Plan: Chronic, stable Continue home meds (5) : Plan: Currently 12 weeks admitting provider discussed with Dr. Kulkarni - does not need q shift heart tones, recommends a formal ultrasound prior to discharge to ensure viability Discussed w/ scientific software developer today (07/12/2023) - US ordered - pt can leave the hospital after US - results will be discussed this week at follow up visit in their office. (6) Acute left flank pain: Admission and Anticipated Discharge Date Admission Date: July 10, 2023 Subjective Pt seen in follow up of flank pain, 12 weeks, hx of renal stones FLIGHT AGENT and urology consulted Currently on Rocephin for UTI Sitting up in bed in no acute distress Says she gets more flank pain after urination She is inquiring about discharge No fever chills chest pain shortness of breath, no nausea vomiting Discussed w/ scientific software developer - will obtain US before DC. Pt needs to follow up in their office this week- will discuss results of US at that time. Review of Systems 2 Review of Systems: All systems reviewed & are unremarkable except as noted in Subjective Physical Exam Physical Exam: Constitutional: WD/WN, vitals as a debbie no acute dis tress Eyes: PERRL, conjunctiva e normal, anicteri c sclerae ENMT: external ear and n ose normal, oropha rynx normal Respiratory: normal respiratory effort, lungs kelsey ar to auscultation Cardiovascular: Rate/Rhythm: regul ar rate and regula r rhythm Vessels: normal peripheral pulses Extremiti es: no edema Gastrointestinal ( Abdomen): normal bowel sound s, soft, nontender Musculoskeletal: extremities motor strength 5/5 Skin: no rashes, warm an d dry Neurologic: PERRL, EOMI, no fa ce palsy, no dysar thria, moves extre mities Psychiatric: A+Ox3, euthymic af fect Genitourinary: + CVA tenderness (Left) improved Results & Data Results & Data Vital Signs (Past 12 Hours) Vital Signs Temp Pulse Resp BP Pulse Ox O2 Del Method 07/12/23 07:31 37.0 C 93 H 16 112/69 100 Room Air Laboratory Results 07/12/23 Range/Units 05:41 WBC 7.71 (4.8-10.8) K/ul RBC 4.04 L (4.20-5.40) M/uL Hgb 11.1 L (12.0-16.0) g/dl Hct 34.5 L (37.0-47.0) % MCV 85.4 (80.0-100.0) fL MCH 27.5 (25.0-34.0) pg MCHC 32.2 (32.0-36.0) g/dL RDW Std Deviation 40.9 (36.4-46.3) fL RDW Coeff of Coral 13.2 (11.5-14.5) % Plt Count 332 (130-400) K/uL MPV 9.7 (9.4-12.4) fL Sodium 137 (136-145) mmol/L Potassium 3.7 (3.5-5.1) mmol/L Chloride 107 (98-107) mmol/L Carbon Dioxide 22 (21-32) mmol/L Anion Gap 8 (3-11) BUN 8 (6-23) mg/dl Creatinine 0.43 L (0.6-1.2) mg/dl Est Cr Clr Drug Dosing 221.0 ml/min Est GFR ( Amer) > 150.0 ml/min Est GFR (Non-Af Amer) 136.5 ml/min BUN/Creatinine Ratio 18.6 (10-20) Glucose 80 (70-99(Fasting)) mg/dl Calcium 8.6 (8.6-10.3) mg/dl Phosphorus 3.9 (2.5-4.9) mg/dl Magnesium 1.9 (1.7-2.4) mg/dl Medications Administered Current Inpatient Medications Acetaminophen (Acetaminophen 500 Mg Tab) 1,000 mg PO Q8H [facility] Stop: 08/09/23 15:29 Last Admin: 07/12/23 07:09 Dose: 1,000 mg Buspirone HCl (Buspirone 5 Mg Tab) 10 mg PO HS [facility] Stop: 08/09/23 20:59 Last Admin: 07/11/23 21:03 Dose: 10 mg Ferrous Sulfate (Ferrous Sulfate 325 Mg Tab) 325 mg PO BID CHELSEY Stop: 08/09/23 20:59 Last Admin: 07/12/23 08:10 Dose: 325 mg Promethazine HCl 6.25 mg/ (Sodium Chloride) 50.25 mls @ 201 mls/hr IV Q6H PRN PRN Reason: Nausea And Vomiting Stop: 08/09/23 14:18 Last Infusion: 07/12/23 02:18 Dose: Infused Ceftriaxone Sodium 2,000 mg/ (Dextrose) 50 mls @ 100 mls/hr IV Q24H [facility]; Protocol Stop: 07/15/23 19:59 Last Infusion: 07/11/23 21:33 Dose: Infused Sodium Chloride (Nss) 1,000 mls @ 100 mls/hr IV .Q10H [facility] Stop: 08/11/23 08:59 Oxycodone HCl (Oxycodone Hcl Ir 5 Mg Tab (Immediate Release)) 5 mg PO Q6H PRN PRN Reason: Severe Pain (Scale 7, 8, 9,10) Stop: 07/24/23 14:18 Last Admin: 07/12/23 07:08 Dose: 5 mg Oxycodone HCl (Oxycodone Hcl Ir 5 Mg Tab (Immediate Release)) 5 mg PO NOW STA Stop: 07/12/23 08:55 Pantoprazole Sodium (Pantoprazole 40 Mg Tab) 40 mg PO DAILY CHELSEY Stop: 08/10/23 08:59 Last Admin: 07/12/23 08:10 Dose: 40 mg Prenat Multivit/Dundy/Iron/Folic Ac ( Vitamin 1 Tab) 1 tab PO DAILY CHELSEY Stop: 08/10/23 08:59 Last Admin: 07/12/23 08:10 Dose: 1 tab Sertraline HCl (Sertraline Hcl 100 Mg Tablet) 150 mg PO DAILY CHELSEY Stop: 08/10/23 08:59 Last Admin: 07/12/23 08:10 Dose: 150 mg Vitamin D (Cholecalciferol 125 Mcg (5,000 Units) Tab) 125 mcg PO DAILY CHELSEY Stop: 08/10/23 08:59 Last Admin: 07/12/23 08:10 Dose: 125 mcg (2) UTI (urinary tract infection) Hematuria presence: without hematuria Urinary tract infection type: site unspecified Qualified Code(s): N39.0 - Urinary tract infection, site not specified (5) Weeks of gestation: unspecified Qualified Code(s): Z34.90 - Encounter for supervision of normal , unspecified, unspecified trimester
--- NOTE | 2023-07-12 14:45 | Discharge Summary ---
Date of Service July 12, 2023 Admission HPI Per Admitting Provider 28-year-old female with PMH GERD, recurrent renal calculi, hyperparathyroidism, depression, history of gastric bypass, and other problems listed below who presents to the ED for evaluation of left flank pain. History is obtained from the patient and review of outpatient PCP records. Patient is currently 12 weeks . Patient reports she developed left flank pain yesterday morning. Given her longstanding history of kidney stones, she was suspicious that she was passing a stone. Patient was seen in the ED yesterday and had a renal ultrasound that showed a 7 mm nonobstructing right kidney stone. UA was abnormal. Patient was given a dose of IV ceftriaxone and discharged home on cefdinir and oxycodone. Patient reports nausea and vomiting. Denies hematemesis and coffee-ground emesis. Patient was taking Zofran and Phenergan at home. Due to ongoing left flank pain today, patient presented back to the ER for reevaluation. She reports noticing some mild hematuria. No fevers or chills. She denies abdominal pain and diarrhea. No chest pain or shortness of breath. Denies lightheadedness, dizziness, diaphoresis, syncopal events. In the ED, labs are unremarkable. She was given IV fentanyl 50 mcg x 2, IV Zofran, IVF. Admission Exam Per Admitting Provider Constitutional: WD/WN, vitals as above no acute distress Eyes: PERRL, conjunctivae normal, anicteric sclerae ENMT: external ear and nose normal, oropharynx normal Respiratory: normal respiratory effort, lungs clear to auscultation Cardiovascular: Rate/Rhythm: regular rate and regular rhythm Vessels: normal peripheral pulses Extremities: no edema Gastrointestinal (Abdomen): normal bowel sounds, soft, nontender, no hepatosplenomegaly Musculoskeletal: no cyanosis or clubbing, extremities motor strength 5/5 Skin: no rashes, warm and dry Neurologic: PERRL, EOMI, accommodation nl, no face palsy, no dysarthria Psychiatric: A+Ox3, euthymic affect Genitourinary: + CVA tenderness (Left) Principal Diagnosis Renal colic, poss. UTI 12 week Discharge Exam Constitutional: WD/WN, vitals as above no acute distress Eyes: PERRL, conjunctivae normal, anicteric sclerae ENMT: external ear and nose normal, oropharynx normal Respiratory: normal respiratory effort, lungs clear to auscultation Cardiovascular: Rate/Rhythm: regular rate and regular rhythm Vessels: normal peripheral pulses Extremities: no edema Gastrointestinal (Abdomen): normal bowel sounds, soft, nontender Musculoskeletal: extremities motor strength 5/5 Skin: no rashes, warm and dry Neurologic: PERRL, EOMI, no face palsy, no dysarthria, moves extremities Psychiatric: A+Ox3, euthymic affect Genitourinary: + CVA tenderness (Left) improved Discharge Data Allergies Allergy/AdvReac Type Severity Reaction Status Date / Time sulfamethoxazole Allergy Intermediate HIVES Verified 07/09/23 20:59 trimethoprim Allergy Intermediate HIVES Verified 07/09/23 20:59 morphine Allergy Mild Hives Verified 07/09/23 20:59 Consultations 07/10/23 13:40 ED Decision to Admit Stat 07/10/23 14:56 Consult Urology Routine 07/10/23 15:57 Consult Obstetrics Routine Ordered Studies 07/12/23 14:25 US OB limited Urgent Hospital Course (1) Nephrolithiasis: (2) UTI (urinary tract infection): Patient presenting from home with reports of worsening left flank pain. Longstanding history of recurring kidney stones. Seen in ED yesterday and had renal ultrasound that showed 7 mm nonobstructing right renal calculi. Abnormal UA noted, patient was discharged on cefdinir and oxycodone. In the ED, labs unremarkable Pain on left however renal calculi on right -- no stones noted on the left per US 07/09 -- ?? poss. small stone on the left not detected by US. poss. mild pyelonephritis given abnormal UA Urine culture 07/09/2023- more than 3 organisms, high counts, re-collection recommended. Repeat UA/ ucultx - negative Received IV ceftriaxone in ED and discharged home on cefdinir. Resumed IV ceftriaxone on current admission. Repeat urine culture negative. IVF, pain and nausea control Urology consulted- no plan for intervention at this time Plan to DC home - finish PO antibiotics as prescribed in ED. (3) Hyperparathyroidism: History of secondary hyperparathyroidism with vitamin D deficiency Continue vitamin D replacement Follows with [facility] endocrinology (4) Depression: Chronic, stable Continue home meds (5) : Currently 12 weeks admitting provider discussed with Dr. Kulkarni - does not need q shift heart tones, recommends a formal ultrasound prior to discharge to ensure viability Discussed w/ nascar pit crew person today (07/12/2023) - US ordered - pt can leave the hospital after US - results will be discussed this week at follow up visit in their office. (6) Acute left flank pain: Total Time Total Time Spent Total Time Spent (In Minutes): 40 Discharge Plan Discharge Items Patient Disposition: Home - Self-Care Reason For Visit: RENAL CALCULI Discharge Diagnosis: Renal colic, poss. UTI 12 week Activity: Per Instructions section Non-emergency contact: Primary Care Provider Call non-emergency contact if: you have any medication questions and your symptoms worsen Follow-up/Referrals: Dimas Doty, [Primary Care Provider] - Diet: Regular Addtl Attending Provider Instructions: Follow up with your DIPLOMATIC OFFICER - please call their office tomorrow and set up the appointment for this week. Finish antibiotic treatment as prescribed. Make sure to stay well hydrated. Take tylenol vs oxycodone as prescribed as needed. Pending Studies at Discharge: Yes Studies:: final results of blood cultx Stand-Alone Forms: My Portr, Smoking Cessation Medications and DC Order Prescriptions: New oxycodone 5 mg Tablet 5 mg PO Q6H PRN (Reason: pain) Qty: 7 0RF Continued 21-iron fu-folic acid [ Complete] 1 caplet PO DAILY sertraline 100 mg tablet 150 mg PO DAILY Rx Instructions: Patient states she takes 1 tablet (100mg) and 1/2 tablet (50mg) by mouth every night at bedtime buspirone 10 mg tablet 10 mg PO HS omeprazole 20 mg capsule,delayed release(DR/EC) 20 mg PO DAILY cholecalciferol (vitamin D3) 125 mcg (5,000 unit) capsule 125 mcg PO DAILY ondansetron 4 mg tablet,disintegrating 4 mg PO Q6H PRN (Reason: nausea and vomiting) Qty: 12 0RF cefdinir 300 mg capsule 300 mg PO BID 10 Days Qty: 20 0RF pyridoxine (vitamin B6) [Vitamin B-6] 25 mg Tablet 25 mg PO DAILY oxycodone-acetaminophen 5-325 mg tablet 1 tab PO Q8H PRN (Reason: Pain) cyanocobalamin (vitamin B-12) 1,000 mcg/mL Solution 1,000 mcg IM UD ferrous sulfate 325 mg (65 mg iron) Tablet 325 mg PO BID Discontinued tamsulosin 0.4 mg capsule 0.4 mg PO DAILY Qty: 14 0RF Rx Instructions: has not been taking promethazine 25 mg tablet 25 mg PO Q6H PRN (Reason: Nausea And Vomiting) Discharge Orders: Discharge Order (Routine); Ordered 07/12/23 Ordered By: Atul Padilla Admission Data Admit Date/Time: 07/10/23 13:48 Attending Provider: Atul Padilla Admit Provider: Jamia Maki Primary Care Provider: Dimas Doty Other Providers: Jamia Maki; Edin Treadwell; Kareem Kulkarni
--- NOTE | 2023-07-12 15:26 | Ultrasound Report ---
US OB limited HISTORY: 28 years-old Female viability acute pelvic pain with COMPARISON: 06/02/2023 TECHNIQUE: Multiple real-time sonographic images of the pelvic structures were obtained transabdomina lly assessing grayscale appearance, color and spectral flow with M-mode analysis FINDINGS: There is a single living intrauterine gestation in cephalic positioning measuring 5.5 cm crown-rump l ength, 12 weeks and 1 day. heart rate measured at 171 bpm. The visualized placenta appears norm al. The cervix is not imaged. Limited images of the adnexa demonstrate no adnexal abnormality. IMPRESSION: Single living intrauterine gestation with estimated gestational age by crown-rump length of 12 weeks and 1 day. ACT 112: Negative or not required by law. The above report was generated using voice recognition software. It may contain grammatical, syntax o r spelling errors. Electronically signed by: Jorge Pineda M.D. 07/12/2023 3:25 PM
== END 2023-07-12 16:52 | disposition home or self-care (01) ==
LOC: 3N 11:16 → ED 11:16 → SUATTDRO 13:48 → 3N 14:32

== ENCOUNTER 2023-07-26 18:13 | Inpatient (IN) ==
--- OUTSIDE RECORDS SUMMARY | 2023-07-26 18:20 | External Medical Summary | Summary of Care ---
Author Name Unknown Organization [facility] Address [address] [facility] [address] Phone [phone] Care Team Providers Care Tour Bus Driver Name Role Phone Levar Ordonez DO Primary Care Provider [phone] Reason for Referral * Medication Prior Authorization - Closed Specialty Diagnoses / Procedures Referred By Rosendo trujillo Referred To Contact Diagnoses Bilateral renal stones Levar Ordonez DO [address] [place] [address] Referral ID Status Reason Start Date Expiration Date Visits Re quested Visits Authorized [id number] Closed 999 555 Reason for Visit * Reason Onset Date Comments Medication Refill 07/23/2023 Encounter Details Date Type Department Care Team (Late st Contact Info) Description 07/23/2023 Refill Family Practice [facility] Gons[facility] [address] [place] [address] Levar Ordonez DO [address] [facility] [place] [address] Bilateral renal stones Allergies Active Allergy Reactions Criticality Noted Date Comments Prochlorperazine Psych complications 06/12/2020 Probably dystonic reaction. The patient does tolerate Phenergan Morphine Hives Low 03/20/2019 Pt feels the rash may have been from tape at the IV site. Sulfamethoxazole Hives High 03/03/2021 Trimethoprim Hives High 05/02/2018 documented as of this encounter (statuses as of 07/23/2023) Medications Medication Sig Dispensed Refills Start Date End Date Status Bariatric Multivitamins/Iron Oral Capsule Take by mouth . Bariatric pal multivitamin once daily 0 12/26/2021 Active Ferrous Sulfate 325 (65 Fe) MG Oral Tablet (Feosol) Take 1 Tablet by mouth in the morning and 1 Tablet before bedtime. 60 Tablet 11 04/01/2022 Active Tamsulosin HCl 0.4 MG Oral Capsule (Flomax)Indications :Flank pain Take 1 Capsule by mouth in the morning. 90 Capsule 2 09/01/2022 Active Nystatin 771882 UNIT/GM External Cream Apply topically to affected area 2 times a day. Apply to abdomen 30 g 1 09/17/2022 Active Cyanocobalamin 1000 MCG/ML Injection Solution (Cyanocobalamin) Inject 1,000 mcg into a large muscle every 3 months. 1 mL 4 12/23/2022 Active Phenazopyridine HCl 100 MG Oral Tablet (Pyridium) Take 1 Tablet by mouth 3 times a day as needed for Pain. 0 01/15/2023 Active Vitamin D 125 MCG (5000 UT) Oral Capsule Take 5000IU daily 90 Capsule 3 02/06/2023 Active Cyclobenzaprine HCl 10 MG Oral Tablet (Flexeril)Indicatio ns:Bilateral renal stones,Radicular pain Take 1 Tablet by mouth 3 times a day as needed for Pain. 90 Tablet 3 04/23/2023 Active Ondansetron 4 MG Oral Tablet Disintegrating (Zofran) Place 1 Tablet on tongue every 8 hours as needed for Nausea. dissolve on tongue. 20 Tablet 0 05/13/2023 Active Pyridoxine HCl 25 MG Oral Tablet (vitamin B-6)Indications:Sy sea and vomiting during Take 1 Tablet by mouth in the morning. 60 Tablet 5 05/19/2023 Active Sertraline HCl 100 MG Oral Tablet (Zoloft)Indications :Recurrent major depressive disorder, in full remission (HCC) TAKE 1 & 1/2 TABLETS BY MOUTH IN THE MORNING. 135 Tablet 3 06/10/2023 Active TO GO oxycodone-acetamino phen OR Take 1 Tablet by mouth every 4 hours as needed for Pain, Moderate. 6 Tablet 0 06/28/2023 Active Ondansetron 4 MG Oral Tablet Disintegrating (Zofran) Place 1 Tablet on tongue every 8 hours as needed for Nausea. dissolve on tongue. 20 Tablet 0 06/28/2023 Active Omeprazole 20 MG Oral Capsule Delayed Release (PriLOSEC)Indicatio ns:GERD Take 1 Capsule by mouth in the morning. 90 Capsule 1 07/13/2023 Active busPIRone HCl 15 MG Oral Tablet (Buspar) Take 1 Tablet by mouth in the morning and 1 Tablet before bedtime. 60 Tablet 5 07/21/2023 Active oxyCODONE-Acetamino phen 5-325 MG Oral Tablet (Percocet)Indicatio ns:Bilateral renal stones Take 1 Tablet by mouth every 8 hours as needed for Pain, Severe. Space out try to decrease dose with . Note max dose is 3 daily, 10 day supply 30 Tablet 0 07/23/2023 Active Promethazine HCl 25 MG Oral Tablet (Phenergan) Take 1 Tablet by mouth every 6 hours as needed for Nausea. or vomiting 12 Tablet 0 07/13/2023 07/23/19 24 Discontinu ed(Refill) oxyCODONE-Acetamino phen 5-325 MG Oral Tablet (Percocet)Indicatio ns:Bilateral renal stones Take 1 Tablet by mouth every 8 hours as needed for Pain, Severe. Space out try to decrease dose with . Note max dose is 3 daily, 10 day supply 30 Tablet 0 07/13/2023 07/23/19 24 Discontinu ed(Refill) documented as of this encounter (statuses as of 07/23/2023) Active Problems Problem Noted Date Diagnosed Date Intestinal postoperative nonabsorption 3 Other dietary vitamin B12 deficiency anemia 10/06 History of gastric bypass 02/11/2022 Obesity, Class III, BMI 40-49.9 (morbid obesity) 10/05/2021 NAFLD (nonalcoholic fatty liver disease) 022 Menorrhagia with regular cycle 04/16/2021 BROWN RESEARCH OTHER*[id number] 01/24/2021 Gastroesophageal reflux disease with esophagitis 01/04/2019 Recurrent major depressive disorder, in full rem ission 01/04/2019 Irritable bowel syndrome wit h both constipation and diarrhea 01/04/2019 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 Patient should be referred for a nutrition consult. Recommend evaluation for signs and symptoms (snoring, excessive daytime sleepiness witnessed apnea or unexplained hypoxia) of obstructive sleep apnea. If any of these are present, referral to Sleep Medicine specialist for further evaluation should be considered. Recommend performing gestational diabetes mellitus screen now (if not performed at first visit) and repeat again at 26-28 weeks if early screen is normal. Recommend Maternal- Medicine ultrasound for anatomy at 20 weeks and for growth every 4 weeks thereafter. For patients with Class 3 obesity, we recommend baseline preeclamptic labs with CBC, serum AST/ALT/creatinine and 24 hour urine protein ANU if not already done. For patients with Class 3 obesity, we recommend twice weekly surveillance starting at 36 weeks and delivery by EDC. Recommend anesthesia consult during the antepartum period. Supervision of normal first 08/07/2016 08/31/2017 Family history of malignant neoplasm of breast 04/08/2016 01/04/2019 Diverticulitis of colon with perforation 02/11/2015 01/04/2019 Dysmenorrhea 01/13/2014 08/31/2017 Obesity, pediatric, BMI 95th to 98th percentile for age 0801/08/2011 04/14/2012 Overweight, pediatric, BMI 8 5.0-94.9 percentile for age 1205/22/2010 01/08/2011 Family history of cardiovascular disease 12/27/2008 01/04/2019 Routine child health exam 09/01/2005 documented as of this encounter (statuses as of 07/23/2023) Immunizations Name Administration Dates Next Due COVID-19 mRNA, LNP-s, No Pre serve, 2-Dose Series (Pfizer) 04/03/2021,06/26/2020,06/05/2020 DTaP Dipth/Tet/Acell Pertussis (Infanrix), Peds 01/06/2017,09/28/1997,09/18/1994,08/15,1993,1993 HIB PRP-T, 4 dose (ActHib) 05/15/1994,,1993,04/26 Haemophilius B (HIB), unspecified 1993,1993,1993,04/26 Hepatitis B, 0-19 yrs 1993,1993,02/07 Hepatitis B, 20+ yrs 02/08/2014 MMR - Measles/Mumps/Rubella Vaccine 09/28/1997,1 1993 Meningococcal Conjugate Vacc ine (Menactra/Menveo) 01/08/2011,12/15/2007 Meningococcal MCV4P Conjugat e Vaccine (Menactra) 01/08/2011,12/15/2007 OPV - Polio Virus Vaccine (Oral) 998,05/15/1994,1993,04/26 PPD 02/08/2014,01/14/2014 Seasonal Influenza Virus Vac cine, Unspecified Formulation 03/08/2019,06/09/2018,02/20/2018,04/28,03/22/2016,02/08/2014,04/30/1999 ,03/26/1996 Seasonal Influenza, PF, 6 M & above, IM , (FluLaval or Fluzone) 03/26/2022,03/08/2020,03/09/2019(Defer red: Patient Refused - pt stated will receive at work) Seasonal Influenza, Quad, Na curtis (Flumist) 03/14/2021 Seasonal Influenza, Quadriva lent, No Preserve, IM 03/13/2021,03/19/2020,03/08/2019,02/20,03/22/2016 Seasonal Influenza, Split, I IV3, No Preserve, Inj 04/28/2017,04/30/1999,03/26/1996 Seasonal Influenza, Split, I IV3, With Preserve, Inj 02/08/2014 TDAP (age 10 and older)(Boostrix) 03/30/2015 Varicella Vaccine (Chicken Pox) 12/27/2008,06/12 documented as of this encounter Social History Tobacco Use Types Packs/Day Years Used Date Smoking Tobacco: Never Smokeless Tobacco: Never Alcohol Use Standard Drinks/Week Comments No 0 (1 standard drink = 0.6 oz pur e alcohol) PHQ-2 Answer Date Recorded PHQ-2 Score 1 05/30/2019 Hunger Vital Sign Answer Date Recorded Within the past 12 months, y ou worried that your food would run out before you got the money to buy more. Never true 05/05/20 Within the past 12 months, t he food you bought just didn't last and you didn't have money to get more. Never true 05/05/2023 Estimated Date of Delivery Comme nts Yes 01/22/2024 Sex and Gender Information Value Date Recorded Sex Assigned at Female 07/27/2019 1:50 PM EST Gender Identity Female 07/27/2019 1:50 PM EST Sexual Orientation Straight 08/29/2022 10 :39 AM EDT Sexual Orientation Choose not to disclose 2022 10:39 AM EDT Job Start Date Occupation Industry Not on file Not on file Not on file documented as of this encounter Functional Status Functional Status Response Date of Assess ment Are you deaf or do you have serious difficulty h earing? No 10/04/2021 Are you blind or do you have serious difficulty seeing, even when wearing glasses? No 10/04/2021 Do you have serious difficul ty walking or climbing stairs? (5 years old or older) No 10/04/2021 Do you have difficulty dress ing or bathing? (5 years old or older) No 10/04/2021 Because of a physical, menta l, or emotional condition, do you have difficulty doing errands alone such as visiting a doctor s office or shopping? (15 years old or older) No 10/05/19 Cognitive Status Response Date of Assessm ent Because of a physical, menta l, or emotional condition, do you have serious difficulty concentrating, remembering, or making decisions? (5 years old or older) No 10/04/2021 documented as of this encounter Miscellaneous Notes * Telephone Encounter - Levar Ordonez DO - 07/23/2023 3:41 PM ESTSigned Prescriptions: Disp Refills oxyCODONE-Acetaminophen 5-325 MG Oral Tabl*30 Tab*0 Sig: Take 1 Tablet by mouth every 8 hours as needed for Pain, Severe. Space out try to decrease dose with . Note max dose is 3 daily, 10 day supply Authorizing Provider: LEVAR ORDONEZ * Telephone Encounter - Rain Corcoran [facility] - 07/23/2023 9:15 AM EST Pending Prescriptions: Disp Refills oxyCODONE-Acetaminophen 5-325 MG Oral Tabl*30 Tab*0 Sig: Take 1 Tablet by mouth every 8 hours as needed for Pain, Severe. Space out try to decrease dose with . Note max dose is 3 daily, 10 day supply * Telephone Encounter - Rain Corcoran [facility] - 07/23/2023 9:15 AM EST I have reviewed the patients controlled substance dispensing history in the Prescription Drug Monitoring Program in compliance with the [facility] regulations before prescribing a controlled substance. PDMP checked on 07/23/2023. Pending Prescriptions: Disp Refills oxyCODONE-Acetaminophen 5-325 MG Oral Tab*30 Tab*0 Sig: Take 1 Tablet by mouth every 8 hours as needed for Pain, Severe. Space out try to decrease dose with . Note max dose is 3 daily, 10 day supply Last Visit: 12/30/2022 (in office), 05/19/2023 (telemedicine) Next Visit: Visit date not found Date medication was last filled: 07/13 Date medication is due for refill: 07/23 [facility] Is this request for a controlled substance? Yes and Urine Drug Screen Not completed Toxicology results: No results found. However, due to the size of the patient record, not all encounters were searched.Please check Results Review for a complete set of results. Please approve if appropriate. Thank you, Rain Corcoran PharmD. Clinical Pharmacist Centralized Clinical Pharmacy Services (CCPS) (formerly Telepharmacy) 07/23/2023, 9:15 AM * Telephone Encounter - Loida Elena PHARM Tech - 07/23/2023 9:00 AM EST Pt is out of medication, asking for high priority. Did you pend patient's preferred pharmacy and medication before forwarding?yes [facility] Pending Prescriptions: Disp Refills oxyCODONE-Acetaminophen 5-325 MG Oral Tab*30 Tab*0 Sig: Take 1 Tablet by mouth every 8 hours as needed for Pain, Severe. Space out try to decrease dose with . Note max dose is 3 daily, 10 day supply Last Visit: 12/30/2022 (in office), 05/19/2023 (telemedicine) Next Visit: Visit date not found If no future appointments scheduled, and last appointment is greater than a year ago, please schedule patient for a follow-up appointment Last date the medication was ordered: 07/13/23 Is this request for a controlled substance?Yes, What was the last refill date 07/13/23 w/ quantity 30and dosage 5-325 and Urine Drug Screen Not completed Urine Drug Screen:No results found. However, due to the size of the patient record, not all encounters were searched. Please check Results Review for a complete set of results. Patient Phone Numbers Labs: Lab Results Component Value Date/Time CREAT 0.6 06/28/2023 04:32 PM CREAT 0.9 06/22/2020 03:57 PM POTASSIUM 3.5 06/28/2023 04:32 PM POTASSIUM 4.9 06/22/2020 03:57 PM TSH 2.42 02/13/2021 07:39 AM TSH 1.20 02/22/2020 02:35 PM LDLCALC 89 10/15/2022 05:20 PM LDLCALC 93 09/11/2010 08:05 AM ALT 14 06/28/2023 04:32 PM ALT 13 06/12/2020 03:25 AM HGBA1C 5.4 10/15/2022 05:20 PM HGBA1C 5.4% 05/25/2019 12:00 AM HGBA1C 5.3 01/11/2015 04:24 PM documented in this encounter Plan of Treatment Upcoming Encounters Date Type Department Care Team (Late st Contact Info) Description 10/22/2023 3:30 PM EDT Telemedicine [facility] [address] [place] [address] Jessica Marin PA-C [address] [place] [address] Scheduled Procedures Name Priority Associated Diagnoses Date/Ti me COLONOSCOPY FLEXIBLE PROXIMA L DIAGNOSTIC Recall History of colonic polyps Health Maintenance Due Date Last Done Comments Pneumococcal Vaccine: Pediatrics (0 to 5 Years) and At-Risk Patients (6 to 64 Years) (1 - PCV) 1999 Pap Smear 04/09/2020 04/09/2017, 09/21/2014 Depression Screening 05/30/2020 05/30/2019 COVID-19 Vaccine (4 - 2022-24 season) 2023 04/03/2021, 06/26/2020, 06/05/2020 Cervical Cancer Screening 2023 HPV/Co-Test 2023 COLONOSCOPY-EVERY 5 YRS AGES 18-100 12/27/2024 12/28/2019, 12/28/2019, 03/17/2014, Additional history exists DTaP,Tdap,and Td Vaccines (9 - Td or Tdap) 01/06/2027 01/06/2017, 03/30/2015, 04/25/2005, Additional history exists MENINGOCOCCAL (MENACTRA/MENVEO) Completed 01/08/2011, 01/08/2011, 12/15/2007, Additional history exists Hepatitis B Completed 02/08/2014, 12/06, 1993, Additional history exists Influenza Vaccine (FLU shot) Completed , 03/26/2022, 03/14/2021, Additional history exists GARDASIL-HPV IMMUNIZATION SERIES Aged Out No longer eligible based on patient's age to complete this topic documented as of this encounter Medical Devices Not on filedocumented as of this encounter Visit Diagnoses Diagnosis Bilateral renal stones documented in this encounter Advance Directives Latest Code Status on File Code Status Date Activated Date Inactivated Comments Full Code 10/04/2021 10:01 AM 10/05/2021 5:34 PM Question Answer Comments Discussion of Advance Direct robinson occurred with: Not Discussed Does the patient have a Living Will? No Does the patient have Health Care Power of Tracer Bullet Section Supervisor? No Code Status History Code Status Date Activated Date Inactivated Comments Full Code 10/04/2021 6:12 AM 10/04/2021 10:00 AM This order reflects the patients wishes and were consensually agreed upon. Question Answer Comments Discussion of Advance Directives occurred with: Not Discussed Full Code 03/21/2021 11:44 AM 03/21/2021 4:28 PM Th is order reflects the patients wishes and were consensually agreed upon. Question Answer Comments Discussion of Advance Directives occurred with: Not Discussed Full Code 03/21/2021 10:47 AM 03/21/2021 11:44 AM T his order reflects the patients wishes and were consensually agreed upon. Question Answer Comments Discussion of Advance Directives occurred with: Not Discussed Full Code 03/19/2021 9:07 AM 03/19/2021 1:37 PM Thi s order reflects the patients wishes and were consensually agreed upon. Question Answer Comments Discussion of Advance Directives occurred with: Not Discussed Does the patient have a Living Will? No Does the patient have Health Care Power of Tracer Bullet Section Supervisor? No Care Teams Tour Bus Driver Relationship Specialty Start Date End Date Levar Ordonez DO [address] [place] [address] PCP - General Family Medicine 06/09/19 documented as of this encounter
--- OUTSIDE RECORDS SUMMARY | 2023-07-26 18:20 | External Medical Summary | Summary of Care ---
Author Name Unknown Organization [facility] Address [address] [facility] [address] Phone [phone] Care Team Providers Care Cracking Machine Operator Name Role Phone Levar Ordonez DO Primary Care Provider [phone] Reason for Visit * Reason Onset Date Comments Medication Refill 07/23/2023 Encounter Details Date Type Department Care Team (Late st Contact Info) Description 07/23/[address] [facility] [address] [facility] [place] [address] Levar Ordonez DO [address] [place] [address] Allergies Active Allergy Reactions Criticality Noted Date [...] morning. 90 Capsule 2 09/01/2022 Active Nystatin 306017 UNIT/GM External Cream Apply topically to affected [...] before bedtime. 60 Tablet 5 07/21/2023 Active Promethazine HCl 25 MG Oral Tablet (Phenergan) Take 1 Tablet by mouth every 6 hours as needed for Nausea. or vomiting 12 Tablet 4 07/23/2023 Active Promethazine HCl 25 MG Oral [...] Menorrhagia with regular cycle 04/16/2021 BROWN RESEARCH OTHER*[id number] 01/24/2021 Gastroesophageal reflux disease with esophagitis 01/04/2019 [...] money to buy more. Never true 05/05/20 23 Within the past 12 months, t he [...] 07/23/2023 3:41 PM ESTSigned Prescriptions: Disp Refills Promethazine HCl 25 MG Oral Tablet (Phener*12 Tab*4 Sig: Take 1 Tablet by mouth every 6 hours as needed for Nausea. or vomiting Authorizing Provider: LEVAR ORDONEZ * Telephone Encounter - Ulices, LoidaRYLIE gomez - 07/23/2023 9:08 AM EST Pt is out of medication, asking for high priority. Did you pend patient's preferred pharmacy and medication before forwarding?yes Pharmacy: [facility] Pending Prescriptions: Disp Refills Promethazine HCl 25 MG Oral Tablet (Phene*12 Tab*0 Sig: Take 1 Tablet by mouth every 6 hours as needed for Nausea. or vomiting Last Visit: 12/30/2022 (in office), 05/19/2023 (telemedicine) Next Visit: Visit date not found If no future appointments scheduled, and last appointment is greater than a year ago, please schedule patient for a follow-up appointment Last date the medication was ordered: 07/13/23 Is this request for a controlled substance?No Urine Drug Screen:No results found. However, due [...] Info) Description 10/22/2023 3:30 PM EDT Telemedicine Endocrinology, [address] [address] Jessica Marin PA-C [address] [place] [address] Scheduled Procedures Name Priority Associated Diagnoses Date/Ti me COLONOSCOPY FLEXIBLE PROXIMA L DIAGNOSTIC Recall History of colonic polyps Health Maintenance Due Date Last Done Comments Pneumococcal Vaccine: Pediatrics (0 to 5 Years) and At-Risk Patients (6 to 64 Years) (1 - PCV) 1999 Pap Smear 04/09/2020 04/09/2017, 09/21/2014 Depression Screening 05/30/2020 05/30/2019 COVID-19 Vaccine (2022-24 season) 2023 04/03/2021, 06/26/2020, 06/05/2020 Cervical Cancer [...] Not on filedocumented as of this encounter Advance Directives Latest Code Status on File Code Status Date Activated Date Inactivated Comments Full Code 10/04/2021 10:01 AM 10/05/2021 5:34 PM Question Answer Comments Discussion of Advance Direct robinson occurred with: Not Discussed Does the patient have a Living Will? No Does the patient have Health Care Power of Breast Puller? No Code Status History Code Status Date [...] the patient have Health Care Power of Breast Puller? No Care Teams Cracking Machine Operator Relationship Specialty Start Date End Date Levar Ordonez DO [address] [place] [address] PCP - General Family Medicine 06/09/19 documented as of this encounter
[2023-07-26 19:06] LABS: Appearance Urine Cloudy (Clear); Bacteria Urine Automated 4+ (Negative); Bilirubin Urine Negative (Negative); Blood Urine Trace (Negative); Color Urine Yellow; Epithelial Cell Urine Auto >30 /lpf (0-5); Glucose Urine UA Negative (Negative); Ketones Urine Negative (Negative); Leukocyte Esterase Urine 2+ (Negative); Nitrite Urine Positive (Negative); Protein Urine Negative (Negative); RBC Urine Automated 0-4 /hpf (0-4); Specific Gravity Urine 1.016 (1.000-1.030); Urobilinogen Urine Negative (Negative); WBC Urine Automated >30 /hpf (0-5)
[2023-07-26 19:08] LABS: Basophils # (auto) 0.09 K/uL (0.00-0.20); Basophils % (auto) 0.8 %; Eosinophils # (auto) 0.07 K/uL (0.00-0.50); Eosinophils % (auto) 0.6 %; Hemoglobin 11.9 g/dl (12.0-16.0); Immature Granulocytes # (auto) 0.04 K/uL (0.01-0.20); Immature Granulocytes % (auto) 0.4 %; Lymphocytes % (auto) 19.5 %; Mean Corpuscular Hgb Conc 33.1 g/dL (32.0-36.0); Mean Corpuscular Volume 84.7 fL (80.0-100.0); Mean Platelet Volume 9.4 fL (9.4-12.4); Monocytes # (auto) 0.89 K/uL (0.11-0.59); Monocytes % (auto) 8.3 %; Neutrophils # (auto) 7.59 K/uL (1.40-6.50); Neutrophils % (auto) 70.4 %; Platelet Count 414 K/uL (130-400); RDW Coefficient of Variation 13.3 % (11.5-14.5); Red Blood Count 4.25 M/uL (4.20-5.40); White Blood Count 10.78 K/ul (4.8-10.8)
--- NOTE | 2023-07-26 19:09 | Emergency Department Note ---
Impression & Plan Pyelonephritis, UTI (urinary tract infection), Acute flank pain, Hypokalemia ED Provider Note NAME: BIANCA ALCAZAR AGE: 28 SEX: F : 1995 ARRIVES VIA: Walk-In INFORMANT: Patient ED PROVIDER(S): Umberto Carrillo DO CHIEF COMPLAINT: Back pain HPI: Patient is a 28-year-old female with a past medical history of kidney stones and diverticulitis G2, P1 at 15 weeks with no complications who presents to the ER for back pain. She was recently admitted and discharged following pyelonephritis on Omnicef. She recently finished this this past Thursday. Started back up again yesterday with dysuria, urgency, or frequency and bilateral back pain. She denies any headache or change in vision. No chest pain or shortness of breath. No belly pain. No vaginal bleeding or vaginal discharge. No other exacerbating or remitting factors. ADDITIONAL HISTORY OBTAINED: Per HPI Chronic Medical/Social Conditions Affecting Care: Per HPI PAST MEDICAL HISTORY:See Below PAST SURGICAL HISTORY:See Below FAMILY HISTORY:See Below SOCIAL HISTORY:See Below HOME MEDICATIONS:See Below ALLERGIES:See Below VITALS:See Below PHYSICAL EXAMINATION: GENERAL: Sitting up in bed, alert, well appearing, well nourished, no distress, non-toxic EYE EXAM: normal conjunctiva. OROPHARYNX: no exudate, no erythema, lips, buccal mucosa, and tongue normal and mucous membranes are moist NECK: supple, no nuchal rigidity, no adenopathy, non-tender LUNGS: Clear to auscultation. Normal chest wall mechanics HEART: Tachycardic, S1 normal and S2 normal ABDOMEN: abdomen soft, non-tender, normo-active bowel sounds, no masses, no rebound or guarding. BACK: Back is symmetrical on inspection and there is no deformity, no midline tenderness, + B/L CVA tenderness UPPER EXTREMITIES: upper extremities are grossly normal. LOWER EXTREMITIES: No pitting edema. NEURO EXAM: Normal sensorium, cranial nerves II-XII grossly intact, normal speech, no gross weakness of arms, no gross weakness of legs. MEDICAL DECISION MAKING: Patient is a 28-year-old female who presents ER for the above-stated complaint. G2, P1 at 15 weeks who presents ER for back pain. IV was established blood work was obtained. Labs show no significant leukocytosis and mild anemia 11.9. No vaginal bleeding vaginal discharge. BMP with mild hypokalemia 3.3. LFTs bilirubin was unremarkable. Lactate was normal. Pro-Jeffry normal. UA from previous admission was contaminated. Initial UA here today was contaminated again in which she attempted to repeated but once again was not a clean-catch. She does have nitrites consequently she was given Rocephin. Did discuss with the hospitalist that she is with a recent admission for UTI/Jairon. Ultrasound was fairly unremarkable. She was admitted for further workup. She was given 2 dose of IV Dilaudid 0.25 mg per dose. Consults/Care Managements Discussions: Per [place] Triage Nursing notes reviewed. Limited review of prior medical records performed Vital Signs: reviewed and remarkable for hypertensive and tachycardic Differential diagnosis: Differential diagnoses includes but is not limited to gastritis, peptic ulcer disease, GERD, gallbladder disease, pancreatitis, small bowel obstruction, appendicitis, diverticulitis, hernia, urinary tract infection, torsion, /ectopic (if female), perforation, trauma, infectious. ER treatment provided: See below Diagnostics interpreted by me include EKG and cardiac monitoring as listed below: -Cardiac Monitoring: An order was placed for continuous cardiac monitoring. The monitor shows a rate of 110 with sinus rhythm. -ECG: none -Laboratory studies:Interpreted by me as stated above in MDM and shown below. Imaging studies: Xrays: As interpreted by me:none CTs show: none Renal ultrasound was unremarkable Procedures:none Critical Care: None Past Med/Surg History Medical History Hyperparathyroidism Ovarian cyst Depression Kidney stones GERD (gastroesophageal reflux disease) Diverticulitis Hx of perforated bowel >10yrs ago -s/p IV antibiotics Surgical History Hx of cystoscopy w/ stent-04/2022 [facility] History of Otilia-en-Y gastric bypass 6 months ago @ [facility] [place] History of cholecystectomy 06/10/19: Grade 1 view, MAC 3, ETT 7.5 atraumatic x 1. History of colonoscopy History of appendectomy 03/16/19: Grade 2 view, Veloz 2, ETT 7.5 atraumatic x 1. History of wisdom tooth extraction PONV (postoperative nausea and vomiting) Status post laparoscopic procedure REMOVED uterine surface endometriotic tissue Previous section Family History Uncle Diabetes Mother Kidney stones Breast cancer Hx of cholecystectomy Hypertension Father Hx of cholecystectomy Other No family history of adverse response to anesthesia Denies family history of Ovarian cancer Prostate cancer Colorectal cancer Social History Smoking Status: Never smoker Second Hand Exposure: No; Do You Dip or Chew Tobacco: No; Hx Alcohol Use: No Hx Substance Use: No Preferred Language: Frisian Communication Ability: Effective Field Support Rep Required: No Beliefs That Will Affect Care: None marital status: marital status details: Umberto Consuelo gillespie ( [phone] Current Living Situation: Family and Significant Other Current Living Situation Comment: With son and boyfriend current occupational status: employed 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 Other Information That Helps Us Care for You: No Feels Safe at Home: Yes Safety Concerns: Feels Safe At This Time Assistive Devices: Glasses Allergies Allergies Allergy/AdvReac Type Severity Reaction Status Date / Time sulfamethoxazole Allergy Intermediate HIVES Verified 07/26/23 21:57 trimethoprim Allergy Intermediate HIVES Verified 07/26/23 21:57 morphine Allergy Mild Hives Verified 07/26/23 21:57 Home Meds Home Medications Medication Instructions Recorded Confirmed buspirone 10 mg tablet 10 mg PO HS 03/09/23 07/26/23 cholecalciferol (vitamin D3) 125 125 mcg PO DAILY 03/09/23 07/26/23 mcg (5,000 unit) capsule omeprazole 20 mg capsule,delayed 20 mg PO DAILY 03/09/23 07/26/23 release sertraline 100 mg tablet 100 mg PO DAILY 03/09/23 07/26/23 21-iron fu-folic acid 1 caplet PO DAILY 06/05/23 07/26/23 [ Complete] cyanocobalamin (vitamin B-12) 1,000 mcg IM UD 07/10/23 07/26/23 1,000 mcg/mL injection solution ferrous sulfate 325 mg (65 mg 325 mg PO BID 07/10/23 07/26/23 iron) tablet oxycodone-acetaminophen 5 mg-325 1 tab PO Q8H PRN Pain 07/10/23 07/26/23 mg tablet pyridoxine (vitamin B6) 25 mg 25 mg PO DAILY 07/10/23 07/26/23 tablet (Vitamin B-6) acetaminophen 325 mg capsule 325 mg PO QID PRN Pain 07/15/23 07/26/23 Previous Rx's Medication Instructions Recorded ondansetron 4 mg disintegrating 4 mg PO Q6H PRN nausea and 06/03/23 tablet vomiting #12 tabs terconazole 0.4 % vaginal cream 1 appful vaginal HS 7 days #45 07/23/23 grams Results & Data (ED) Vital Signs Vital Signs - 24 hr 07/26/23 18:37 07/26/23 18:48 07/26/23 18:50 Temperature 36.1 C L Temperature Source Temporal Artery Scan Pulse Rate 129 H 117 H Pulse Rate from SpO2 Sensor 117 H Respiratory Rate 18 23 Respiratory Effort / Characteristics Non-Labored Respiratory Depth Normal Respiratory Pattern Regular Blood Pressure 145/92 H Blood Pressure Mean 109 Pulse Oximetry 100 100 Oxygen Delivery Method Room Air Room Air Room Air Sepsis Recent Fever Within 48 Hours No Sepsis New/Unexplained Change in Mental Status N/A Sepsis Action Taken by Nursing No Action Required 07/26/23 18:50 07/26/23 19:00 07/26/23 19:03 Temperature Temperature Source Pulse Rate 118 H 116 H 114 H Pulse Rate from SpO2 Sensor 117 H 113 H Respiratory Rate 22 17 Respiratory Effort / Characteristics Respiratory Depth Respiratory Pattern Blood Pressure Blood Pressure Mean Pulse Oximetry 100 100 Oxygen Delivery Method Room Air Sepsis Recent Fever Within 48 Hours Sepsis New/Unexplained Change in Mental Status Sepsis Action Taken by Nursing 07/26/23 19:10 07/26/23 19:20 07/26/23 19:30 Temperature Temperature Source Pulse Rate 108 H 103 H 102 H Pulse Rate from SpO2 Sensor 107 H 104 H 104 H Respiratory Rate 17 22 18 Respiratory Effort / Characteristics Respiratory Depth Respiratory Pattern Blood Pressure Blood Pressure Mean Pulse Oximetry 100 100 100 Oxygen Delivery Method Sepsis Recent Fever Within 48 Hours Sepsis New/Unexplained Change in Mental Status Sepsis Action Taken by Nursing 07/26/23 19:38 07/26/23 19:38 07/26/23 19:40 Temperature Temperature Source Pulse Rate 105 H 104 H Pulse Rate from SpO2 Sensor 104 H 105 H Respiratory Rate 18 19 Respiratory Effort / Characteristics Respiratory Depth Respiratory Pattern Blood Pressure 124/91 Blood Pressure Mean 106 Pulse Oximetry 100 100 Oxygen Delivery Method Room Air Sepsis Recent Fever Within 48 Hours Sepsis New/Unexplained Change in Mental Status Sepsis Action Taken by Nursing 07/26/23 20:29 07/26/23 20:30 07/26/23 20:40 Temperature Temperature Source Pulse Rate 92 H 92 H 93 H Pulse Rate from SpO2 Sensor 93 H 94 H 94 H Respiratory Rate 18 15 13 Respiratory Effort / Characteristics Respiratory Depth Respiratory Pattern Blood Pressure Blood Pressure Mean Pulse Oximetry 100 100 100 Oxygen Delivery Method Sepsis Recent Fever Within 48 Hours Sepsis New/Unexplained Change in Mental Status Sepsis Action Taken by Nursing 07/26/23 20:50 07/26/23 21:00 07/26/23 21:10 Temperature Temperature Source Pulse Rate 92 H 103 H 103 H Pulse Rate from SpO2 Sensor 93 H 104 H Respiratory Rate 16 19 20 Respiratory Effort / Characteristics Respiratory Depth Respiratory Pattern Blood Pressure Blood Pressure Mean Pulse Oximetry 100 100 Oxygen Delivery Method Sepsis Recent Fever Within 48 Hours Sepsis New/Unexplained Change in Mental Status Sepsis Action Taken by Nursing 07/26/23 21:20 Temperature Temperature Source Pulse Rate 107 H Pulse Rate from SpO2 Sensor Respiratory Rate 22 Respiratory Effort / Characteristics Respiratory Depth Respiratory Pattern Blood Pressure Blood Pressure Mean Pulse Oximetry Oxygen Delivery Method Sepsis Recent Fever Within 48 Hours Sepsis New/Unexplained Change in Mental Status Sepsis Action Taken by Nursing Laboratory Data 07/26/23 18:50 07/26/23 18:50 Lab Results 07/26/23 07/26/23 Range/Units 18:50 19:29 WBC 10.78 (4.8-10.8) K/ul RBC 4.25 (4.20-5.40) M/uL Hgb 11.9 L (12.0-16.0) g/dl Hct 36.0 L (37.0-47.0) % MCV 84.7 (80.0-100.0) fL MCH 28.0 (25.0-34.0) pg MCHC 33.1 (32.0-36.0) g/dL RDW Std Deviation 41.0 (36.4-46.3) fL RDW Coeff of [place] 13.3 (11.5-14.5) % Plt Count 414 H (130-400) K/uL MPV 9.4 (9.4-12.4) fL Immature Gran % (Auto) 0.4 % Neut % (Auto) 70.4 % Lymph % (Auto) 19.5 % [place] % (Auto) 8.3 % Eos % (Auto) 0.6 % Baso % (Auto) 0.8 % Neut # (Auto) 7.59 H (1.40-6.50) K/uL Lymph # (Auto) 2.10 (1.20-3.40) K/uL [place] # (Auto) 0.89 H (0.11-0.59) K/uL Eos # (Auto) 0.07 (0.00-0.50) K/uL Baso # (Auto) 0.09 (0.00-0.20) K/uL Immature Gran # (Auto) 0.04 (0.01-0.20) K/uL Sodium 134 L (136-145) mmol/L Potassium 3.3 L (3.5-5.1) mmol/L Chloride 103 (98-107) mmol/L Carbon Dioxide 22 (21-32) mmol/L Anion Gap 9 (3-11) BUN 11 (6-23) mg/dl Creatinine 0.57 L (0.6-1.2) mg/dl Est Cr Clr Drug Dosing 165.7 ml/min Est GFR ( Amer) 144.2 ml/min Est GFR (Non-Af Amer) 124.4 ml/min BUN/Creatinine Ratio 19.3 (10-20) Glucose 93 (70-99(Fasting)) mg/dl Lactate 0.9 (0.4-2.0) mmol/L Calcium 9.3 (8.6-10.3) mg/dl Total Bilirubin 0.3 (0.2-1.0) mg/dl AST 17 (13-39) U/L ALT 13 (7-52) U/L Alkaline Phosphatase 65 (34-104) U/L Total Protein 8.0 (6.0-8.3) gm/dl Albumin 4.4 (3.4-5.0) gm/dl Globulin 3.6 (2.5-4.0) gm/dl Albumin/Globulin Ratio 1.2 (0.9-2) Lipase 45 (11-82) U/L Procalcitonin 0.04 (0-0.5) ng/ml Urine Color Yellow Urine Appearance Cloudy A (Clear) Urine pH 6.0 (4.5-7.5) Ur Specific [place] 1.016 (1.000-1.030) Urine Protein Negative (Negative) Urine Glucose (UA) Negative (Negative) Urine Ketones Negative (Negative) Urine Blood Trace H (Negative) Urine Nitrite Positive A (Negative) Urine Bilirubin Negative (Negative) Urine Urobilinogen Negative (Negative) Ur Leukocyte Esterase 2+ H (Negative) Urine WBC (Auto) >30 H (0-5) /hpf Urine RBC (Auto) 0-4 (0-4) /hpf U Hyaline Cast (Auto) 10-30 H (0-5) /lpf U Epithel Cells (Auto) >30 H (0-5) /lpf Urine Bacteria (Auto) 4+ H (Negative) Administered Medications Hydromorphone HCl (Hydromorphone Inj 0.5 Mg/0.5 Ml Syr) 0.25 mg IV Q4H PRN PRN Reason: Severe Pain (Scale 7, 8, 9,10) Stop: 08/09/23 23:24 Last Admin: 07/26/23 23:56 Dose: 0.25 mg Documented By: EKF Sodium Chloride (Nss) 1,000 mls @ 80 mls/hr IV .[id number] CHELSEY Stop: 08/25/23 23:24 Last Admin: 07/26/23 23:56 Dose: 80 mls/hr Documented By: EKF Ondansetron HCl (Ondansetron 4 Mg Od Tab) 4 mg PO Q6H PRN PRN Reason: nausea and vomiting Stop: 08/25/23 23:24 Last Admin: 07/26/23 23:56 Dose: 4 mg Documented By: EKF Discontinued Medications Acetaminophen (Acetaminophen 325 Mg Tab) 650 mg PO NOW STA Stop: 07/26/23 19:06 Last Admin: 07/26/23 19:10 Dose: 650 mg Documented By: DARIAN Hydromorphone HCl (Hydromorphone Inj 0.5 Mg/0.5 Ml Syr) 0.25 mg IV NOW STA Stop: 07/26/23 19:24 Last Admin: 07/26/23 19:27 Dose: 0.25 mg Documented By: JEFF Hydromorphone HCl (Hydromorphone Inj 0.5 Mg/0.5 Ml Syr) 0.25 mg IV NOW STA Stop: 07/26/23 21:00 Last Admin: 07/26/23 21:18 Dose: 0.25 mg Documented By: JEFF Sodium Chloride (Nss) 1,000 mls @ 999 mls/hr IV .[id number] CHELSEY Stop: 07/26/23 21:15 Last Infusion: 07/26/23 23:25 Dose: Infused Documented By: Admin: 07/26/23 21:04 Dose: 999 mls/hr Documented By: Infusion: 07/26/23 20:13 Dose: Infused Documented By: Admin: 07/26/23 19:12 Dose: 999 mls/hr Documented By: DARIAN Ceftriaxone Sodium (Rocephin) 2,000 mg in 50 mls @ 100 mls/hr IV NOW STA Stop: 07/26/23 19:34 Last Infusion: 07/26/23 21:05 Dose: Infused Documented By: Admin: 07/26/23 19:14 Dose: 100 mls/hr Documented By: DARIAN Metoclopramide HCl (Metoclopramide Hcl Inj 5 Mg/Ml 2 Ml Vial) 10 mg IV NOW STA Stop: 07/26/23 19:24 Last Admin: 07/26/23 19:27 Dose: 10 mg Documented By: JEFF Imaging Data Radiologist's Impression: Renal Ultrasound 07/26/23 19:04 Exam(s): US RENAL EXAM: US Retroperitoneal Limited, Renal CLINICAL HISTORY: Reason for exam: b/l flank pain recent pyelonephritis. TECHNIQUE: Real-time limited ultrasound of the retroperitoneum with image documentation. COMPARISON: July 09, 2023 FINDINGS: Right kidney: There is a 5 mm nonobstructive calyceal calculus in the lower pole the right kidney, unchanged. No hydronephrosis is seen. The right kidney measures 11.3 x 6.3 x 4.9 cm. There is a 1 cm simple cyst in the upper pole the right kidney. No follow-up is required. Left kidney: The left kidney measures 10.9 x 5.1 x 5.3 cm. No stones. No hydronephrosis. Bladder: The uterus is partially distended and unremarkable. The ureteral jets are not visible. Other findings: There is a gravid uterus with heart rate 171 bpm. IMPRESSION: Nonobstructive calyceal calculus in the lower pole the right kidney. No hydronephrosis or ureterolithiasis is seen. Electronically signed by: Sam Serrano MD 07/26/23 20:49 PM Discharge Plan Visit Data Chief Complaint: Flank Pain Stated Complaint: FLANK PAIN BOTH SIDES, PELVIC PAIN, FEVER,15W PREG ED Provider: Umberto Carrillo Discharge Problem: Pyelonephritis, UTI (urinary tract infection), Acute flank pain, Hypokalemia Patient Disposition: Admitted As Inpatient Discharge Problem: UTI (urinary tract infection) Qualifiers: Urinary tract infection type: site unspecified Hematuria presence: without hematuria Qualified Code(s): N39.0 - Urinary tract infection, site not specified
[2023-07-26] MEDS: ACETAMINOPHEN 325 MG TAB PO STA (19:10)
[2023-07-26] MEDS: SODIUM CHLORIDE 0.9% 1,000 ML IV SCH ×2 (19:12→23:56)
[2023-07-26] MEDS: cefTRIAXone SODIUM 2,000 MG/50 ML BAG IV STA (19:14)
[2023-07-26 19:27] LABS: Albumin Globulin Ratio 1.2 (0.9-2); Albumin Level 4.4 gm/dl (3.4-5.0); BUN Creatinine Ratio 19.3 (10-20); Bilirubin,Total 0.3 mg/dl (0.2-1.0); Calcium 9.3 mg/dl (8.6-10.3); Creatinine Clr Calc Pharmacy 165.7 ml/min; Est GFR (African American) 144.2 ml/min; Est GFR (Non-African American) 124.4 ml/min; Globulin 3.6 gm/dl (2.5-4.0); Potassium 3.3 mmol/L (3.5-5.1)
[2023-07-26] MEDS: METOCLOPRAMIDE HCL INJ 5 MG/ML 2 ML VIAL IV STA (19:27)
[2023-07-26] MEDS: HYDROmorphone INJ 0.5 MG/0.5 ML SYR IV STA ×2 (19:27→21:18)
--- NOTE | 2023-07-26 20:50 | Ultrasound Report ---
Exam(s): US RENAL EXAM: US Retroperitoneal Limited, Renal CLINICAL HISTORY: Reason for exam: b/l flank pain recent pyelonephritis. TECHNIQUE: Real-time limited ultrasound of the retroperitoneum with image documentation. COMPARISON: July 09, 2023 FINDINGS: Right kidney: There is a 5 mm nonobstructive calyceal calculus in the lower pole the right kidney, unchanged. No hydronephrosis is seen. The right kidney measures 11.3 x 6.3 x 4.9 cm. There is a 1 cm simple cyst in the upper pole the right kidney. No follow-up is required. Left kidney: The left kidney measures 10.9 x 5.1 x 5.3 cm. No stones. No hydronephrosis. Bladder: The uterus is partially distended and unremarkable. The ureteral jets are not visible. Other findings: There is a gravid uterus with heart rate 171 bpm. IMPRESSION: Nonobstructive calyceal calculus in the lower pole the right kidney. No hydronephrosis or ureterolithiasis is seen. Electronically signed by: Sam Serrano MD 07/26/23 20:49 PM
--- NOTE | 2023-07-26 21:58 | History & Physical Report ---
Date of Service July 26, 2023 Assessment & Plan (1) UTI (urinary tract infection): Plan: 28-year-old female G2, P1 at 15 weeks , history of kidney stones, obesity, GERD, irritable bowel syndrome, nonalcoholic fatty liver, history of vitamin B12 deficiency, history of gastric bypass, history of depression who was recently treated for UTI and also found to have right kidney stone comes in because again having bilateral flank pain and urinary symptoms. Patient was admitted on July 10, 2023 for UTI and flank pain and ultrasound showed 7 mm nonobstructing right renal calculi , received Rocephin in the hospital and discharged on Omnicef patient completed antibiotics last Thursday/ Thursday. And since last she again started having increased frequency and urgency of urine and flank pain. That got progressively worse and since yesterday she has had bilateral flank pain severe in nature and also spiking fevers and also feeling nauseous which prompted her to come to the ER. UA is again positive here. In the ER she is afebrile. Also,says has some blood in the urine. Hemodynamics are okay. Says has some headache. Vision is okay. No runny nose or sore throat or cough. No chest pain or shortness of breath. No abdominal pain. Normal bowel movements. Recurrent urinary tract infection Renal ultrasound July 10 shows nonobstructing 7 mm right lower pole renal stone Renal ultrasound done today every 2023 again nonobstructive calculus in the lower pole of the right kidney UA is again positive Received Rocephin in the ER and is continued Will follow the cultures Gentle fluids N.p.o. after midnight Pain control Urology consult in a.m. G2, P1 at 15 weeks Consult OBG in a.m. DVT prophylaxis SCDs Disposition Medical floor Full code History of Present Illness Chief Complaint: Bilateral flank pain Primary Care Provider: Dimas Doty DO 28-year-old female G2, P1 at 15 weeks , history of kidney stones, obesity, GERD, irritable bowel syndrome, nonalcoholic fatty liver, history of vitamin B12 deficiency, history of gastric bypass, history of depression who was recently treated for UTI and also found to have right kidney stone comes in because again having bilateral flank pain and urinary symptoms. Patient was admitted on July 10, 2023 for UTI and flank pain and ultrasound showed 7 mm nonobstructing right renal calculi , received Rocephin in the hospital and discharged on Omnicef patient completed antibiotics last Thursday/ Thursday. And since last she again started having increased frequency and urgency of urine and flank pain. That got progressively worse and since yesterday she has had bilateral flank pain severe in nature and also spiking fevers and also feeling nauseous which prompted her to come to the ER. UA is again positive here. In the ER she is afebrile. Also,says has some blood in the urine. Hemodynamics are okay. Says has some headache. Vision is okay. No runny nose or sore throat or cough. No chest pain or shortness of breath. No abdominal pain. Normal bowel movements. Past medical history. As mentioned above Past surgical history. Colonoscopy. Cystourethroscopy with lithotripsy. EGD. Exploration of abdomen for endometriosis. Laparoscopic procedure and liver. Laparoscopic gastric bypass Otilia-en-Y. Laparoscopic cholecystectomy. Laparoscopic appendectomy. Social history. . No smoking. No alcohol use. No drug use. Family history. Maternal grandmother had breast cancer. Heart disorder. Thyroid disorder. Maternal grandfather had heart disorder. Lung disorder. Paternal grandfather had heart disorder. Mother has hypertension. Breast cancer. Allergies Allergy/AdvReac Type Severity Reaction Status Date / Time sulfamethoxazole Allergy Intermediate HIVES Verified 07/26/23 21:57 trimethoprim Allergy Intermediate HIVES Verified 07/26/23 21:57 morphine Allergy Mild Hives Verified 07/26/23 21:57 Home Medications Medication Instructions Recorded Confirmed Type buspirone 10 mg tablet 10 mg PO HS 03/09/23 07/26/23 History cholecalciferol (vitamin D3) 125 125 mcg PO DAILY 03/09/23 07/26/23 History mcg (5,000 unit) capsule omeprazole 20 mg capsule,delayed 20 mg PO DAILY 03/09/23 07/26/23 History release sertraline 100 mg tablet 100 mg PO DAILY 03/09/23 07/26/23 History ondansetron 4 mg disintegrating 4 mg PO Q6H PRN nausea and 06/03/23 07/26/23 Rx tablet vomiting #12 tabs 21-iron fu-folic acid 1 caplet PO DAILY 06/05/23 07/26/23 History [ Complete] cyanocobalamin (vitamin B-12) 1,000 mcg IM UD 07/10/23 07/26/23 History 1,000 mcg/mL injection solution ferrous sulfate 325 mg (65 mg 325 mg PO BID 07/10/23 07/26/23 History iron) tablet oxycodone-acetaminophen 5 mg-325 1 tab PO Q8H PRN Pain 07/10/23 07/26/23 History mg tablet pyridoxine (vitamin B6) 25 mg 25 mg PO DAILY 07/10/23 07/26/23 History tablet (Vitamin B-6) acetaminophen 325 mg capsule 325 mg PO QID PRN Pain 07/15/23 07/26/23 History terconazole 0.4 % vaginal cream 1 appful vaginal HS 7 days #45 07/23/23 07/26/23 Rx grams Past Med/Surg History Medical History Hyperparathyroidism Ovarian cyst Depression Kidney stones GERD (gastroesophageal reflux disease) Diverticulitis Hx of perforated bowel >10yrs ago -s/p IV antibiotics Surgical History Hx of cystoscopy w/ stent-04/2022 [facility] History of Otilia-en-Y gastric bypass 6 months ago [place] [facility] [place] History of cholecystectomy 06/10/19: Grade 1 view, MAC 3, ETT 7.5 atraumatic x 1. History of colonoscopy History of appendectomy 03/16/19: Grade 2 view, Veloz 2, ETT 7.5 atraumatic x 1. History of wisdom tooth extraction PONV (postoperative nausea and vomiting) Status post laparoscopic procedure REMOVED uterine surface endometriotic tissue Previous section Family History Uncle Diabetes Mother Kidney stones Breast cancer Hx of cholecystectomy Hypertension Father Hx of cholecystectomy Other No family history of adverse response to anesthesia Denies family history of Ovarian cancer Prostate cancer Colorectal cancer Social History Smoking Status: Never smoker Second Hand Exposure: No; Do You Dip or Chew Tobacco: No; Hx Alcohol Use: No Hx Substance Use: No Preferred Language: [place] Communication Ability: Effective 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 Beliefs That Will Affect Care: None marital status: marital status details: Umberto gillespie ( [phone] Current Living Situation: Family and Significant Other Current Living Situation Comment: With son and boyfriend current occupational status: employed 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 Head- atraumatic Eyes- PERRL. ENT- oropharynx clear Neck- supple, no JVD. Lungs- clear to auscultation no wheezing or crackles. Heart- regular rhythm; no murmur, no gallop. Abdomen- normal bowel sounds, soft, nontender, b/l cva tenderness present. Extremities- no pretibial edema, Neuro- alert, oriented x 3; PERRL, no facial palsy; no dysarthria; moves extremities. Skin- warm & dry Results & Data Results & Data Vital Signs (Past 12 Hours) Vital Signs Temp Pulse Resp BP Pulse Ox O2 Del Method 07/26/23 21:20 107 H 22 07/26/23 21:10 103 H 20 07/26/23 21:00 103 H 19 100 07/26/23 20:50 92 H 16 100 07/26/23 20:40 93 H 13 100 07/26/23 20:30 92 H 15 100 07/26/23 20:29 92 H 18 100 07/26/23 19:40 104 H 19 100 Room Air 07/26/23 19:38 124/91 07/26/23 19:38 105 H 18 100 07/26/23 19:30 102 H 18 100 07/26/23 19:20 103 H 22 100 07/26/23 19:10 108 H 17 100 07/26/23 19:03 114 H 07/26/23 19:00 116 H 17 100 Room Air 07/26/23 18:50 118 H 22 100 07/26/23 18:50 Room Air 07/26/23 18:48 117 H 23 100 Room Air 07/26/23 18:37 36.1 C L 129 H 18 145/92 H 100 Room Air Diagnostic Findings Laboratory Results WBC 10.78 K/ul (4.8-10.8) 07/26/23 18:50 RBC 4.25 M/uL (4.20-5.40) 07/26/23 18:50 Hgb 11.9 g/dl (12.0-16.0) L 07/26/23 18:50 Hct 36.0 % (37.0-47.0) L 07/26/23 18:50 MCV 84.7 fL (80.0-100.0) 07/26/23 18:50 MCH 28.0 pg (25.0-34.0) 07/26/23 18:50 MCHC 33.1 g/dL (32.0-36.0) 07/26/23 18:50 RDW Std Deviation 41.0 fL (36.4-46.3) 07/26/23 18:50 RDW Coeff of Coral 13.3 % (11.5-14.5) 07/26/23 18:50 Plt Count 414 K/uL (130-400) H 07/26/23 18:50 MPV 9.4 fL (9.4-12.4) 07/26/23 18:50 Immature Gran % (Auto) 0.4 % 07/26/23 18:50 Neut % (Auto) 70.4 % 07/26/23 18:50 Lymph % (Auto) 19.5 % 07/26/23 18:50 [place] % (Auto) 8.3 % 07/26/23 18:50 Eos % (Auto) 0.6 % 07/26/23 18:50 Baso % (Auto) 0.8 % 07/26/23 18:50 Neut # (Auto) 7.59 K/uL (1.40-6.50) H 07/26/23 18:50 Lymph # (Auto) 2.10 K/uL (1.20-3.40) 07/26/23 18:50 [place] # (Auto) 0.89 K/uL (0.11-0.59) H 07/26/23 18:50 Eos # (Auto) 0.07 K/uL (0.00-0.50) 07/26/23 18:50 Baso # (Auto) 0.09 K/uL (0.00-0.20) 07/26/23 18:50 Immature Gran # (Auto) 0.04 K/uL (0.01-0.20) 07/26/23 18:50 Sodium 134 mmol/L (136-145) L 07/26/23 18:50 Potassium 3.3 mmol/L (3.5-5.1) L 07/26/23 18:50 Chloride 103 mmol/L (98-107) 07/26/23 18:50 Carbon Dioxide 22 mmol/L (21-32) 07/26/23 18:50 Anion Gap 9 (3-11) 07/26/23 18:50 BUN 11 mg/dl (6-23) 07/26/23 18:50 Creatinine 0.57 mg/dl (0.6-1.2) L 07/26/23 18:50 Est Cr Clr Drug Dosing 165.7 ml/min 07/26/23 18:50 Est GFR ( Amer) 144.2 ml/min 07/26/23 18:50 Est GFR (Non-Af Amer) 124.4 ml/min 07/26/23 18:50 BUN/Creatinine Ratio 19.3 (10-20) 07/26/23 18:50 Glucose 93 mg/dl (70-99(Fasting)) 07/26/23 18:50 Lactate 0.9 mmol/L (0.4-2.0) 07/26/23 19:29 Calcium 9.3 mg/dl (8.6-10.3) 07/26/23 18:50 Total Bilirubin 0.3 mg/dl (0.2-1.0) 07/26/23 18:50 AST 17 U/L (13-39) 07/26/23 18:50 ALT 13 U/L (7-52) 07/26/23 18:50 Alkaline Phosphatase 65 U/L (34-104) 07/26/23 18:50 Total Protein 8.0 gm/dl (6.0-8.3) 07/26/23 18:50 Albumin 4.4 gm/dl (3.4-5.0) 07/26/23 18:50 Globulin 3.6 gm/dl (2.5-4.0) 07/26/23 18:50 Albumin/Globulin Ratio 1.2 (0.9-2) 07/26/23 18:50 Lipase 45 U/L (11-82) 07/26/23 18:50 Procalcitonin 0.04 ng/ml (0-0.5) 07/26/23 18:50 Urine Color Yellow 07/26/23 18:50 Urine Appearance Cloudy (Clear) A 07/26/23 18:50 Urine pH 6.0 (4.5-7.5) 07/26/23 18:50 Ur Specific [place] 1.016 (1.000-1.030) 07/26/23 18:50 Urine Protein Negative (Negative) 07/26/23 18:50 Urine Glucose (UA) Negative (Negative) 07/26/23 18:50 Urine Ketones Negative (Negative) 07/26/23 18:50 Urine Blood Trace (Negative) H 07/26/23 18:50 Urine Nitrite Positive (Negative) A 07/26/23 18:50 Urine Bilirubin Negative (Negative) 07/26/23 18:50 Urine Urobilinogen Negative (Negative) 07/26/23 18:50 Ur Leukocyte Esterase 2+ (Negative) H 07/26/23 18:50 Urine WBC (Auto) >30 /hpf (0-5) H 07/26/23 18:50 Urine RBC (Auto) 0-4 /hpf (0-4) 07/26/23 18:50 U Hyaline Cast (Auto) 10-30 /lpf (0-5) H 07/26/23 18:50 U Epithel Cells (Auto) >30 /lpf (0-5) H 07/26/23 18:50 Urine Bacteria (Auto) 4+ (Negative) H 07/26/23 18:50 Impressions Renal Ultrasound 07/26/23 19:04 Exam(s): US RENAL EXAM: US Retroperitoneal Limited, Renal CLINICAL HISTORY: Reason for exam: b/l flank pain recent pyelonephritis. TECHNIQUE: Real-time limited ultrasound of the retroperitoneum with image documentation. COMPARISON: July 09, 2023 FINDINGS: Right kidney: There is a 5 mm nonobstructive calyceal calculus in the lower pole the right kidney, unchanged. No hydronephrosis is seen. The right kidney measures 11.3 x 6.3 x 4.9 cm. There is a 1 cm simple cyst in the upper pole the right kidney. No follow-up is required. Left kidney: The left kidney measures 10.9 x 5.1 x 5.3 cm. No stones. No hydronephrosis. Bladder: The uterus is partially distended and unremarkable. The ureteral jets are not visible. Other findings: There is a gravid uterus with heart rate 171 bpm. IMPRESSION: Nonobstructive calyceal calculus in the lower pole the right kidney. No hydronephrosis or ureterolithiasis is seen. Electronically signed by: Sam Serrano MD 07/26/23 20:49 PM Code Status & VTE Plan VTE Prophylaxis Plan VTE Prophylaxis will be ordered: Yes (1) UTI (urinary tract infection) Hematuria presence: without hematuria Urinary tract infection type: site unspecified Qualified Code(s): N39.0 - Urinary tract infection, site not specified
[2023-07-26 23:24] LABS: Appearance Urine Cloudy (Clear); Bacteria Urine Automated 3+ (Negative); Bilirubin Urine Negative (Negative); Blood Urine Negative (Negative); Color Urine Yellow; Epithelial Cell Urine Auto >30 /lpf (0-5); Glucose Urine UA Negative (Negative); Ketones Urine 1+ (Negative); Leukocyte Esterase Urine 2+ (Negative); Nitrite Urine Positive (Negative); Protein Urine Negative (Negative); RBC Urine Automated 0-4 /hpf (0-4); Specific Gravity Urine 1.017 (1.000-1.030); Urobilinogen Urine Negative (Negative); WBC Urine Automated >30 /hpf (0-5)
[2023-07-26 23:33] LABS: Cast Urine Automated >30 /lpf (0-5)
[2023-07-26] MEDS: ONDANSETRON 4 MG OD TAB PO PRN (23:56)
[2023-07-26] MEDS: HYDROmorphone INJ 0.5 MG/0.5 ML SYR IV PRN (23:56)
[2023-07-27] MEDS: oxyCODONE/ACETAMINOPHEN 5mg/325mg TAB PO PRN (00:57)
[2023-07-27] MEDS: HYDROmorphone INJ 0.5 MG/0.5 ML SYR IV STA ×2 (02:20→21:45)
[2023-07-27] MEDS: PROMETHAZINE HCL 12.5 MG in SODIUM CHLORIDE 0.9% 50 ML IV STA (06:00)
[2023-07-27] MEDS: ACETAMINOPHEN 325 MG TAB PO PRN (06:04)
--- NOTE | 2023-07-27 08:27 | Hospitalist Progress Note ---
Date of Service July 27, 2023 Assessment & Plan (1) UTI (urinary tract infection): Plan: 28-year-old female G2, P1 at 15 weeks , history of kidney stones, obesity, GERD, irritable bowel syndrome, nonalcoholic fatty liver, history of vitamin B12 deficiency, history of gastric bypass, history of depression who was recently treated for UTI and also found to have right kidney stone comes in because again having bilateral flank pain and urinary symptoms. Patient was admitted on July 10, 2023 for UTI and flank pain and ultrasound showed 7 mm nonobstructing right renal calculi , received Rocephin in the hospital and discharged on Omnicef patient completed antibiotics last Thursday/ Thursday. And since last she again started having increased frequency and urgency of urine and flank pain. That got progressively worse and since yesterday she has had bilateral flank pain severe in nature and also spiking fevers and also feeling nauseous which prompted her to come to the ER. UA is again positive here. In the ER she is afebrile. Also,says has some blood in the urine. Recurrent urinary tract infection Renal ultrasound July 10 shows nonobstructing 7 mm right lower pole renal stone Renal ultrasound done July 26 2023 again nonobstructive calculus in the lower pole of the right kidney UA is again positive Received Rocephin in the ER and is continued Will follow the cultures Gentle fluids Pain control Urology consulted - cont. abx and IVF, no plan for urological intervention at this time G2, P1 at 15 weeks Consulted OBG - cont. 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 Says she has more flank pain this time than she had during her last admission. Reports some hematuria. Currently feels fairly comfortable. Had fever at home, now afebrile. No chest pain or shortness of breath. Review of Systems Review of Systems: All systems reviewed & are unremarkable except as noted in Subjective Physical Exam Physical Exam: General- WD/WN young F in NAD Head- atraumatic Eyes- PERRL. ENT- oropharynx clear Neck- supple, no JVD. Lungs- clear to auscultation no wheezing or crackles. Heart- regular rhythm; no murmur, no gallop. Abdomen- normal bowel sounds, soft, nontender, b/l cva tenderness present. Extremities- no pretibial edema, Neuro- alert, oriented x 3; PERRL, no facial palsy; no dysarthria; moves extremities. Skin- warm & dry Results & Data Results & Data Vital Signs (Past 12 Hours) Vital Signs Temp Pulse Pulse Resp BP Pulse Ox O2 Del Method 07/27/23 07:47 36.7 C 84 16 102/68 99 Room Air 07/27/23 01:13 Room Air 07/26/23 23:25 37.1 C 88 18 121/84 99 Room Air 07/26/23 21:20 107 H 22 07/26/23 21:10 103 H 20 07/26/23 21:00 103 H 19 100 07/26/23 20:50 92 H 16 100 07/26/23 20:40 93 H 13 100 07/26/23 20:30 92 H 15 100 07/26/23 20:29 92 H 18 100 Laboratory Results 07/27/23 07/26/23 07/26/23 Range/Units 08:08 23:08 19:29 WBC 7.04 (4.8-10.8) K/ul RBC 3.15 L (4.20-5.40) M/uL Hgb 8.7 L D (12.0-16.0) g/dl Hct 26.6 L (37.0-47.0) % MCV 84.4 (80.0-100.0) fL MCH 27.6 (25.0-34.0) pg MCHC 32.7 (32.0-36.0) g/dL RDW Std Deviation 41.1 (36.4-46.3) fL RDW Coeff of Coral 13.4 (11.5-14.5) % Plt Count 273 (130-400) K/uL MPV 9.4 (9.4-12.4) fL Immature Gran % (Auto) 0.4 % Neut % (Auto) 51.8 % Lymph % (Auto) 36.1 % [place] % (Auto) 9.7 % Eos % (Auto) 1.0 % Baso % (Auto) 1.0 % Neut # (Auto) 3.65 (1.40-6.50) K/uL Lymph # (Auto) 2.54 (1.20-3.40) K/uL [place] # (Auto) 0.68 H (0.11-0.59) K/uL Eos # (Auto) 0.07 (0.00-0.50) K/uL Baso # (Auto) 0.07 (0.00-0.20) K/uL Immature Gran # (Auto) 0.03 (0.01-0.20) K/uL Sodium 137 (136-145) mmol/L Potassium 3.9 (3.5-5.1) mmol/L Chloride 110 H (98-107) mmol/L Carbon Dioxide 23 (21-32) mmol/L Anion Gap 4 (3-11) BUN 9 (6-23) mg/dl Creatinine 0.48 L (0.6-1.2) mg/dl Est Cr Clr Drug Dosing 197.8 ml/min Est GFR ( Amer) > 150.0 ml/min Est GFR (Non-Af Amer) 131.6 ml/min BUN/Creatinine Ratio 18.8 (10-20) Glucose 84 (70-99(Fasting)) mg/dl Lactate 0.9 (0.4-2.0) mmol/L Calcium 7.8 L (8.6-10.3) mg/dl Magnesium 1.8 (1.7-2.4) mg/dl Total Bilirubin (0.2-1.0) mg/dl AST (13-39) U/L ALT (7-52) U/L Alkaline Phosphatase (34-104) U/L Total Protein (6.0-8.3) gm/dl Albumin (3.4-5.0) gm/dl Globulin (2.5-4.0) gm/dl Albumin/Globulin Ratio (0.9-2) Lipase (11-82) U/L Procalcitonin (0-0.5) ng/ml Urine Color Yellow Urine Appearance Cloudy A (Clear) Urine pH 6.0 (4.5-7.5) Ur Specific [place] 1.017 (1.000-1.030) Urine Protein Negative (Negative) Urine Glucose (UA) Negative (Negative) Urine Ketones 1+ H (Negative) Urine Blood Negative (Negative) Urine Nitrite Positive A (Negative) Urine Bilirubin Negative (Negative) Urine Urobilinogen Negative (Negative) Ur Leukocyte Esterase 2+ H (Negative) Urine WBC (Auto) >30 H (0-5) /hpf Urine RBC (Auto) 0-4 (0-4) /hpf U Hyaline Cast (Auto) >30 H (0-5) /lpf U Epithel Cells (Auto) >30 H (0-5) /lpf Urine Bacteria (Auto) 3+ H (Negative) POC Ur Test 07/26/23 Range/Units 18:50 WBC 10.78 (4.8-10.8) K/ul RBC 4.25 (4.20-5.40) M/uL Hgb 11.9 L (12.0-16.0) g/dl Hct 36.0 L (37.0-47.0) % MCV 84.7 (80.0-100.0) fL MCH 28.0 (25.0-34.0) pg MCHC 33.1 (32.0-36.0) g/dL RDW Std Deviation 41.0 (36.4-46.3) fL RDW Coeff of Coral 13.3 (11.5-14.5) % Plt Count 414 H (130-400) K/uL MPV 9.4 (9.4-12.4) fL Immature Gran % (Auto) 0.4 % Neut % (Auto) 70.4 % Lymph % (Auto) 19.5 % [place] % (Auto) 8.3 % Eos % (Auto) 0.6 % Baso % (Auto) 0.8 % Neut # (Auto) 7.59 H (1.40-6.50) K/uL Lymph # (Auto) 2.10 (1.20-3.40) K/uL [place] # (Auto) 0.89 H (0.11-0.59) K/uL Eos # (Auto) 0.07 (0.00-0.50) K/uL Baso # (Auto) 0.09 (0.00-0.20) K/uL Immature Gran # (Auto) 0.04 (0.01-0.20) K/uL Sodium 134 L (136-145) mmol/L Potassium 3.3 L (3.5-5.1) mmol/L Chloride 103 (98-107) mmol/L Carbon Dioxide 22 (21-32) mmol/L Anion Gap 9 (3-11) BUN 11 (6-23) mg/dl Creatinine 0.57 L (0.6-1.2) mg/dl Est Cr Clr Drug Dosing 165.7 ml/min Est GFR ( Amer) 144.2 ml/min Est GFR (Non-Af Amer) 124.4 ml/min BUN/Creatinine Ratio 19.3 (10-20) Glucose 93 (70-99(Fasting)) mg/dl Lactate (0.4-2.0) mmol/L Calcium 9.3 (8.6-10.3) mg/dl Magnesium (1.7-2.4) mg/dl Total Bilirubin 0.3 (0.2-1.0) mg/dl AST 17 (13-39) U/L ALT 13 (7-52) U/L Alkaline Phosphatase 65 (34-104) U/L Total Protein 8.0 (6.0-8.3) gm/dl Albumin 4.4 (3.4-5.0) gm/dl Globulin 3.6 (2.5-4.0) gm/dl Albumin/Globulin Ratio 1.2 (0.9-2) Lipase 45 (11-82) U/L Procalcitonin 0.04 (0-0.5) ng/ml Urine Color Yellow Urine Appearance Cloudy A (Clear) Urine pH 6.0 (4.5-7.5) Ur Specific [place] 1.016 (1.000-1.030) Urine Protein Negative (Negative) Urine Glucose (UA) Negative (Negative) Urine Ketones Negative (Negative) Urine Blood Trace H (Negative) Urine Nitrite Positive A (Negative) Urine Bilirubin Negative (Negative) Urine Urobilinogen Negative (Negative) Ur Leukocyte Esterase 2+ H (Negative) Urine WBC (Auto) >30 H (0-5) /hpf Urine RBC (Auto) 0-4 (0-4) /hpf U Hyaline Cast (Auto) 10-30 H (0-5) /lpf U Epithel Cells (Auto) >30 H (0-5) /lpf Urine Bacteria (Auto) 4+ H (Negative) POC Ur Test Cancelled Medications Administered Current Inpatient Medications Acetaminophen (Acetaminophen 325 Mg Tab) 650 mg PO Q4H PRN PRN Reason: pain/fever Stop: 08/25/23 23:24 Last Admin: 07/27/23 06:04 Dose: 650 mg Buspirone HCl (Buspirone 5 Mg Tab) 10 mg PO HS [facility] Stop: 08/26/23 20:59 Ferrous Sulfate (Ferrous Sulfate 325 Mg Tab) 325 mg PO BID [facility] Stop: 08/26/23 08:59 Hydromorphone HCl (Hydromorphone Inj 0.5 Mg/0.5 Ml Syr) 0.25 mg IV Q4H PRN PRN Reason: Severe Pain (Scale 7, 8, 9,10) Stop: 08/09/23 23:24 Last Admin: 07/27/23 04:20 Dose: 0.25 mg Ceftriaxone Sodium 2,000 mg/ (Dextrose) 50 mls @ 100 mls/hr IV Q24H [facility]; Protocol Stop: 08/06/23 19:59 Sodium Chloride (Nss) 1,000 mls @ 80 mls/hr IV .[id number] [facility] Stop: 08/25/23 23:24 Last Admin: 07/26/23 23:56 Dose: 80 mls/hr Ondansetron HCl (Ondansetron 4 Mg Od Tab) 4 mg PO Q6H PRN PRN Reason: nausea and vomiting Stop: 08/25/23 23:24 Last Admin: 07/26/23 23:56 Dose: 4 mg Oxycodone/Acetaminophen (Oxycodone/Acetaminophen 5mg/325mg Tab) 1 tab PO Q8H PRN PRN Reason: Pain Stop: 08/09/23 23:24 Last Admin: 07/27/23 00:57 Dose: 1 tab Pantoprazole Sodium (Pantoprazole 40 Mg Tab) 40 mg PO DAILY [facility] Stop: 08/26/23 08:59 Prenat Multivit/Community Health Coordinator/Iron/Folic Ac ( Vitamin 1 Tab) 1 tab PO DAILY [facility] Stop: 08/26/23 08:59 Pyridoxine HCl (Pyridoxine Hcl 50 Mg Tab) 25 mg PO DAILY [facility] Stop: 08/26/23 08:59 Sertraline HCl (Sertraline Hcl 100 Mg Tablet) 100 mg PO DAILY [facility] Stop: 08/26/23 08:59 Vitamin D (Cholecalciferol 125 Mcg (5,000 Units) Tab) 125 mcg PO DAILY [facility] Stop: 08/26/23 08:59 (1) UTI (urinary tract infection) Hematuria presence: without hematuria Urinary tract infection type: site unspecified Qualified Code(s): N39.0 - Urinary tract infection, site not specified
[2023-07-27] MEDS: PRENATAL VITAMIN 1 TAB PO SCH (08:37)
[2023-07-27] MEDS: PANTOprazole 40 MG TAB PO SCH (08:37)
[2023-07-27] MEDS: PYRIDOXINE HCL 50 MG TAB PO SCH (08:37)
[2023-07-27] MEDS: CHOLECALCIFEROL 125 MCG (5,000 UNITS) TAB PO SCH (08:37)
[2023-07-27] MEDS: FERROUS SULFATE 325 MG TAB PO SCH (08:37)
[2023-07-27 08:38] LABS: Basophils # (auto) 0.07 K/uL (0.00-0.20); Eosinophils # (auto) 0.07 K/uL (0.00-0.50); Hematocrit (blood only) 26.6 % (37.0-47.0); Hemoglobin 8.7 g/dl (12.0-16.0); Immature Granulocytes # (auto) 0.03 K/uL (0.01-0.20); Immature Granulocytes % (auto) 0.4 %; Lymphocytes # (auto) 2.54 K/uL (1.20-3.40); Lymphocytes % (auto) 36.1 %; Mean Corpuscular Hemoglobin 27.6 pg (25.0-34.0); Mean Corpuscular Hgb Conc 32.7 g/dL (32.0-36.0); Mean Corpuscular Volume 84.4 fL (80.0-100.0); Mean Platelet Volume 9.4 fL (9.4-12.4); Monocytes # (auto) 0.68 K/uL (0.11-0.59); Monocytes % (auto) 9.7 %; Neutrophils # (auto) 3.65 K/uL (1.40-6.50); Neutrophils % (auto) 51.8 %; Platelet Count 273 K/uL (130-400); RDW Coefficient of Variation 13.4 % (11.5-14.5); RDW Standard Deviation 41.1 fL (36.4-46.3); Red Blood Count 3.15 M/uL (4.20-5.40); White Blood Count 7.04 K/ul (4.8-10.8)
[2023-07-27] MEDS: SERTRALINE HCL 100 MG TABLET PO SCH (08:38)
--- NOTE | 2023-07-27 08:45 | OB/GYN Consultation ---
Date of Consultation July 27, 2023 Assessment & Plan (1) : at 15weeks + movement Offered daily heart tones if desired Thank you for allowing us to participate in the care of this patient (2) UTI (urinary tract infection): Ceftriaxone 2g daily Continue -safe medications Supervising Physician Co-Signing Physician Notes Agree with current plan of care. We are available as needed History of Present Illness Reason for Consultation: Requesting Physician: Dr. Ye Attending Physician: Atul Padilla MD History of Present Illness 28 yo at 15 weeks , history of kidney stones, obesity, GERD, irritable bowel syndrome, nonalcoholic fatty liver, history of vitamin B12 deficiency, history of gastric bypass, history of depression who was recently admitted for UTI two weeks ago (07/10/23) and treated with antibiotics, diagnosed with 7mm R non obstructing renal calculus. Antibiotics were completed 07/20/23. Began having urinary urgency/frequency/increased flank pain on 07/23/23. Pt reports fevers and nausea prior to presenting to the hospital. Patient denies CP, SOB, abdominal pain, vomiting, lightheadedness, dizziness, and diarrhea. +UA, on ceftriaxone 2g daily, afebrile, VSS + movement Patient states urology saw her/spoke to her and there is no plan for procedure at this time. Allergies Allergy/AdvReac Type Severity Reaction Status Date / Time sulfamethoxazole Allergy Intermediate HIVES Verified 07/26/23 21:57 trimethoprim Allergy Intermediate HIVES Verified 07/26/23 21:57 morphine Allergy Mild Hives Verified 07/26/23 21:57 Home Medications Medication Instructions Recorded Confirmed Type buspirone 10 mg tablet 10 mg PO HS 03/09/23 07/26/23 History cholecalciferol (vitamin D3) 125 125 mcg PO DAILY 03/09/23 07/26/23 History mcg (5,000 unit) capsule omeprazole 20 mg capsule,delayed 20 mg PO DAILY 03/09/23 07/26/23 History release sertraline 100 mg tablet 100 mg PO DAILY 03/09/23 07/26/23 History ondansetron 4 mg disintegrating 4 mg PO Q6H PRN nausea and 06/03/23 07/26/23 Rx tablet vomiting #12 tabs 21-iron fu-folic acid 1 caplet PO DAILY 06/05/23 07/26/23 History [ Complete] cyanocobalamin (vitamin B-12) 1,000 mcg IM UD 07/10/23 07/26/23 History 1,000 mcg/mL injection solution ferrous sulfate 325 mg (65 mg 325 mg PO BID 07/10/23 07/26/23 History iron) tablet oxycodone-acetaminophen 5 mg-325 1 tab PO Q8H PRN Pain 07/10/23 07/26/23 History mg tablet pyridoxine (vitamin B6) 25 mg 25 mg PO DAILY 07/10/23 07/26/23 History tablet (Vitamin B-6) acetaminophen 325 mg capsule 325 mg PO QID PRN Pain 07/15/23 07/26/23 History terconazole 0.4 % vaginal cream 1 appful vaginal HS 7 days #45 07/23/23 07/26/23 Rx grams Patient History Medical History Hyperparathyroidism Ovarian cyst Depression Kidney stones GERD (gastroesophageal reflux disease) Diverticulitis Hx of perforated bowel >10yrs ago -s/p IV antibiotics Surgical History Hx of cystoscopy w/ stent-04/2022 [facility] History of Otilia-en-Y gastric [place] [facility] [place] of cholecystectomy 06/10/19: Grade 1 view, MAC 3, ETT 7.5 atraumatic x 1. History of colonoscopy History of appendectomy 03/16/19: Grade 2 view, Veloz 2, ETT 7.5 atraumatic x 1. History of wisdom tooth extraction PONV (postoperative nausea and vomiting) Status post laparoscopic procedure REMOVED uterine surface endometriotic tissue Previous section Family History Uncle Diabetes Mother Kidney stones Breast cancer Hx of cholecystectomy Hypertension Father Hx of cholecystectomy Other No family history of adverse response to anesthesia Denies family history of Ovarian cancer Prostate cancer Colorectal cancer Social History Smoking Status: Never smoker Second Hand Exposure: No; Do You Dip or Chew Tobacco: No; Hx Alcohol Use: No Hx Substance Use: No Preferred Language: Solomon Islander Communication Ability: Effective 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 Molded 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 Required: No Beliefs That Will Affect Care: None marital status: marital status details: Umberto gillespie ( 28) [phone] Current Living Situation: Family and Significant Other Current Living Situation Comment: With son and boyfriend current occupational status: employed 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 Skin: warm, dry, intact HEENT: NC/AT, anicteric sclera, conjunctiva without injection, moist mucus membranes Heart: +S1/S2, regular, no m/r/g Lungs: equal air entry bilaterally, no rales/rhonchi/wheezes Abd: +BS, soft, NT/ND, gravid uterus Ext: warm, no clubbing/cyanosis or edema, b/l flank TTP Neuro: nonfocal, speech intact, no facial droop, moving all extremities on command. Results & Data Vital Signs (Past 12 Hours) Vital Signs Temp Pulse Pulse Resp BP Pulse Ox O2 Del Method 07/27/23 07:47 36.7 C 84 16 102/68 99 Room Air 07/27/23 01:13 Room Air 07/26/23 23:25 37.1 C 88 18 121/84 99 Room Air 07/26/23 21:20 107 H 22 07/26/23 21:10 103 H 20 07/26/23 21:00 103 H 19 100 07/26/23 20:50 92 H 16 100 Laboratory Results 07/27/23 07/26/23 07/26/23 Range/Units 08:08 23:08 19:29 WBC 7.04 (4.8-10.8) K/ul RBC 3.15 L (4.20-5.40) M/uL Hgb 8.7 L D (12.0-16.0) g/dl Hct 26.6 L (37.0-47.0) % MCV 84.4 (80.0-100.0) fL MCH 27.6 (25.0-34.0) pg MCHC 32.7 (32.0-36.0) g/dL RDW Std Deviation 41.1 (36.4-46.3) fL RDW Coeff of Coral 13.4 (11.5-14.5) % Plt Count 273 (130-400) K/uL MPV 9.4 (9.4-12.4) fL Immature Gran % (Auto) 0.4 % Neut % (Auto) 51.8 % Lymph % (Auto) 36.1 % Ford % (Auto) 9.7 % Eos % (Auto) 1.0 % Baso % (Auto) 1.0 % Neut # (Auto) 3.65 (1.40-6.50) K/uL Lymph # (Auto) 2.54 (1.20-3.40) K/uL Ford # (Auto) 0.68 H (0.11-0.59) K/uL Eos # (Auto) 0.07 (0.00-0.50) K/uL Baso # (Auto) 0.07 (0.00-0.20) K/uL Immature Gran # (Auto) 0.03 (0.01-0.20) K/uL Sodium 137 (136-145) mmol/L Potassium 3.9 (3.5-5.1) mmol/L Chloride 110 H (98-107) mmol/L Carbon Dioxide 23 (21-32) mmol/L Anion Gap 4 (3-11) BUN 9 (6-23) mg/dl Creatinine 0.48 L (0.6-1.2) mg/dl Est Cr Clr Drug Dosing 197.8 ml/min Est GFR ( Amer) > 150.0 ml/min Est GFR (Non-Af Amer) 131.6 ml/min BUN/Creatinine Ratio 18.8 (10-20) Glucose 84 (70-99(Fasting)) mg/dl Lactate 0.9 (0.4-2.0) mmol/L Calcium 7.8 L (8.6-10.3) mg/dl Magnesium 1.8 (1.7-2.4) mg/dl Total Bilirubin (0.2-1.0) mg/dl AST (13-39) U/L ALT (7-52) U/L Alkaline Phosphatase (34-104) U/L Total Protein (6.0-8.3) gm/dl Albumin (3.4-5.0) gm/dl Globulin (2.5-4.0) gm/dl Albumin/Globulin Ratio (0.9-2) Lipase (11-82) U/L Procalcitonin (0-0.5) ng/ml Urine Color Yellow Urine Appearance Cloudy A (Clear) Urine pH 6.0 (4.5-7.5) Ur Specific [place] 1.017 (1.000-1.030) Urine Protein Negative (Negative) Urine Glucose (UA) Negative (Negative) Urine Ketones 1+ H (Negative) Urine Blood Negative (Negative) Urine Nitrite Positive A (Negative) Urine Bilirubin Negative (Negative) Urine Urobilinogen Negative (Negative) Ur Leukocyte Esterase 2+ H (Negative) Urine WBC (Auto) >30 H (0-5) /hpf Urine RBC (Auto) 0-4 (0-4) /hpf U Hyaline Cast (Auto) >30 H (0-5) /lpf U Epithel Cells (Auto) >30 H (0-5) /lpf Urine Bacteria (Auto) 3+ H (Negative) POC Ur Test 07/26/23 Range/Units 18:50 WBC 10.78 (4.8-10.8) K/ul RBC 4.25 (4.20-5.40) M/uL Hgb 11.9 L (12.0-16.0) g/dl Hct 36.0 L (37.0-47.0) % MCV 84.7 (80.0-100.0) fL MCH 28.0 (25.0-34.0) pg MCHC 33.1 (32.0-36.0) g/dL RDW Std Deviation 41.0 (36.4-46.3) fL RDW Coeff of Coral 13.3 (11.5-14.5) % Plt Count 414 H (130-400) K/uL MPV 9.4 (9.4-12.4) fL Immature Gran % (Auto) 0.4 % Neut % (Auto) 70.4 % Lymph % (Auto) 19.5 % Ford % (Auto) 8.3 % Eos % (Auto) 0.6 % Baso % (Auto) 0.8 % Neut # (Auto) 7.59 H (1.40-6.50) K/uL Lymph # (Auto) 2.10 (1.20-3.40) K/uL Ford # (Auto) 0.89 H (0.11-0.59) K/uL Eos # (Auto) 0.07 (0.00-0.50) K/uL Baso # (Auto) 0.09 (0.00-0.20) K/uL Immature Gran # (Auto) 0.04 (0.01-0.20) K/uL Sodium 134 L (136-145) mmol/L Potassium 3.3 L (3.5-5.1) mmol/L Chloride 103 (98-107) mmol/L Carbon Dioxide 22 (21-32) mmol/L Anion Gap 9 (3-11) BUN 11 (6-23) mg/dl Creatinine 0.57 L (0.6-1.2) mg/dl Est Cr Clr Drug Dosing 165.7 ml/min Est GFR ( Amer) 144.2 ml/min Est GFR (Non-Af Amer) 124.4 ml/min BUN/Creatinine Ratio 19.3 (10-20) Glucose 93 (70-99(Fasting)) mg/dl Lactate (0.4-2.0) mmol/L Calcium 9.3 (8.6-10.3) mg/dl Magnesium (1.7-2.4) mg/dl Total Bilirubin 0.3 (0.2-1.0) mg/dl AST 17 (13-39) U/L ALT 13 (7-52) U/L Alkaline Phosphatase 65 (34-104) U/L Total Protein 8.0 (6.0-8.3) gm/dl Albumin 4.4 (3.4-5.0) gm/dl Globulin 3.6 (2.5-4.0) gm/dl Albumin/Globulin Ratio 1.2 (0.9-2) Lipase 45 (11-82) U/L Procalcitonin 0.04 (0-0.5) ng/ml Urine Color Yellow Urine Appearance Cloudy A (Clear) Urine pH 6.0 (4.5-7.5) Ur Specific [place] 1.016 (1.000-1.030) Urine Protein Negative (Negative) Urine Glucose (UA) Negative (Negative) Urine Ketones Negative (Negative) Urine Blood Trace H (Negative) Urine Nitrite Positive A (Negative) Urine Bilirubin Negative (Negative) Urine Urobilinogen Negative (Negative) Ur Leukocyte Esterase 2+ H (Negative) Urine WBC (Auto) >30 H (0-5) /hpf Urine RBC (Auto) 0-4 (0-4) /hpf U Hyaline Cast (Auto) 10-30 H (0-5) /lpf U Epithel Cells (Auto) >30 H (0-5) /lpf Urine Bacteria (Auto) 4+ H (Negative) POC Ur Test Pending (1) Weeks of gestation: unspecified Qualified Code(s): Z34.90 - Encounter for supervision of normal , unspecified, unspecified trimester (2) UTI (urinary tract infection) Hematuria presence: without hematuria Urinary tract infection type: site unspecified Qualified Code(s): N39.0 - Urinary tract infection, site not specified
[2023-07-27 08:46] LABS: Anion Gap 4 (3-11); BUN Creatinine Ratio 18.8 (10-20); Blood Urea Nitrogen 9 mg/dl (6-23); Calcium 7.8 mg/dl (8.6-10.3); Carbon Dioxide 23 mmol/L (21-32); Chloride 110 mmol/L (98-107); Creatinine Clr Calc Pharmacy 197.8 ml/min; Est GFR (African American) > 150.0 ml/min; Est GFR (Non-African American) 131.6 ml/min; Glucose 84 mg/dl (70-99(Fasting)); Magnesium 1.8 mg/dl (1.7-2.4); Potassium 3.9 mmol/L (3.5-5.1); Sodium 137 mmol/L (136-145)
--- NOTE | 2023-07-27 13:01 | Urology Consultation ---
Date of Consultation July 27, 2023 Assessment & Plan (1) UTI (urinary tract infection): Plan 28yo F with a history of nephrolithiasis who is 15 weeks who presented with flank pain and urinary symptoms and admitted with suspected UTI. - Renal ultrasound reviewed - Nonobstructing right renal stone, no hydronephrosis or ureterolithiasis noted. - Afebrile and hemodynamically stable. - Labs reviewed - WBC 7.04, Creatinine 0.48. - Urine culture 07/26 prelim gram-negative bacilli, repeat pending. Blood cultures pending. On Ceftriaxone. - Voiding spontaneously, continue to monitor. Bladder scan prn. - No plan for urological intervention. - Continue supportive care. - Continue antibiotics and tailor as culture data becomes available. - If patient develops significant renal failure or develops acute febrile illness suspicious for pyelonephritis would then consider possible intervention versus transfer for nephrostomy tubes. - Otherwise we will plan for continued supportive care as well as close monitoring. - Urology will follow peripherally. Please call with any further questions, concerns, or changes in patient status. Plan of care reviewed with Dr. Treadwell, on-call urologist. History of Present Illness Attending Physician: Atul Padilla MD History of Present Illness 28 year old female who is 15 weeks with a history of kidney stones, obesity, GERD, irritable bowel syndrome, nonalcoholic fatty liver, history of vitamin B12 deficiency, history of gastric bypass, history of depression who presented to the ED with flank pain and urinary symptoms. Patient was admitted on July 10, 2023 for UTI and flank pain. Renal ultrasound imaging showed a 7 mm nonobstructing right renal calculi. She was discharged on Omnicef for treatment of UTI which she completed last week. Since completing antibiotics, she started having increased frequency and urgency of urine and flank pain which progressively worsened and prompted her arrival in the ED. On arrival, she was afebrile and hemodynamically stable. Labs show no leukocytosis and normal renal function. Urinalysis with positive nitrite, 2+ LE, 3+ bacteria, negative blood. A renal ultrasound was obtained and shows a nonobstructing right renal stone, no hydronephrosis or ureterolithiasis noted. Pt is being followed by OB as well as the hospitalist team. Well-known patient to urology with history of stone disease. Has had interventions on stones in the past. Patient examined at bedside this AM. Awake, resting in bed on arrival. No acute distress. Denies fever or chills at present. Had some nausea earlier after breakfast. Voiding spontaneously. Reports some hematuria. Reports some flank and pelvic pain. Allergies Allergy/AdvReac Type Severity Reaction Status Date / Time sulfamethoxazole Allergy Intermediate HIVES Verified 07/26/23 21:57 trimethoprim Allergy Intermediate HIVES Verified 07/26/23 21:57 morphine Allergy Mild Hives Verified 07/26/23 21:57 Home Medications Medication Instructions Recorded Confirmed Type buspirone 10 mg tablet 10 mg PO HS 03/09/23 07/26/23 History cholecalciferol (vitamin D3) 125 125 mcg PO DAILY 03/09/23 07/26/23 History mcg (5,000 unit) capsule omeprazole 20 mg capsule,delayed 20 mg PO DAILY 03/09/23 07/26/23 History release sertraline 100 mg tablet 100 mg PO DAILY 03/09/23 07/26/23 History ondansetron 4 mg disintegrating 4 mg PO Q6H PRN nausea and 06/03/23 07/26/23 Rx tablet vomiting #12 tabs 21-iron fu-folic acid 1 caplet PO DAILY 06/05/23 07/26/23 History [ Complete] cyanocobalamin (vitamin B-12) 1,000 mcg IM UD 07/10/23 07/26/23 History 1,000 mcg/mL injection solution ferrous sulfate 325 mg (65 mg 325 mg PO BID 07/10/23 07/26/23 History iron) tablet oxycodone-acetaminophen 5 mg-325 1 tab PO Q8H PRN Pain 07/10/23 07/26/23 History mg tablet pyridoxine (vitamin B6) 25 mg 25 mg PO DAILY 07/10/23 07/26/23 History tablet (Vitamin B-6) acetaminophen 325 mg capsule 325 mg PO QID PRN Pain 07/15/23 07/26/23 History terconazole 0.4 % vaginal cream 1 appful vaginal HS 7 days #45 07/23/23 07/26/23 Rx grams Patient History Medical History Hyperparathyroidism Ovarian cyst Depression Kidney stones GERD (gastroesophageal reflux disease) Diverticulitis Hx of perforated bowel >10yrs ago -s/p IV antibiotics Surgical History Hx of cystoscopy w/ stent-04/2022 [facility] History of Otilia-en-Y gastric bypass 6 months ago [place] [facility] [place] of cholecystectomy 06/10/19: Grade 1 view, MAC 3, ETT 7.5 atraumatic x 1. History of colonoscopy History of appendectomy 03/16/19: Grade 2 view, Veloz 2, ETT 7.5 atraumatic x 1. History of wisdom tooth extraction PONV (postoperative nausea and vomiting) Status post laparoscopic procedure REMOVED uterine surface endometriotic tissue Previous section Family History Uncle Diabetes Mother Kidney stones Breast cancer Hx of cholecystectomy Hypertension Father Hx of cholecystectomy Other No family history of adverse response to anesthesia Denies family history of Ovarian cancer Prostate cancer Colorectal cancer Social History Smoking Status: Never smoker Second Hand Exposure: No; Do You Dip or Chew Tobacco: No; Hx Alcohol Use: No Hx Substance Use: No Preferred Language: Mexican Communication Ability: Effective Care Clinician Required: No Beliefs That Will Affect Care: None marital status: marital status details: Umberto gillespie ( 28) [phone] Current Living Situation: Family and Significant Other Current Living Situation Comment: With son and boyfriend current occupational status: 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 That Helps Us Care for You: No Feels Safe at Home: Yes Safety Concerns: Feels Safe At This Time Assistive Devices: None Review of Systems Review of Systems: All systems reviewed & are unremarkable except as noted in HPI & below Physical Exam Constitutional: no acute distress Respiratory: no respiratory distress and no labored breathing Musculoskeletal: Head/Neck/Chest: normocephalic Skin: No visible rashes or lesions to exposed skin areas Neurologic: moves all extremities and awake Psychiatric: A+Ox3, euthymic affect Results & Data Vital Signs (Past 12 Hours) Vital Signs Temp Pulse Resp BP Pulse Ox O2 Del Method 07/27/23 07:47 36.7 C 84 16 102/68 99 Room Air 07/27/23 01:13 Room Air PG Care Time/CCT Total # of Minutes Spent Total Time Spent with Patient: Total time spent is greater than 50% in coordination of care (as documented) at patient's floor/unit and/or counseling patient: Coding Level of Care Code 47339 IN/OBS CONSULT LVL 3,45M Diagnoses UTI (urinary tract infection) N39.0 Hematuria presence: without hematuria Urinary tract infection type: site unspecified (1) UTI (urinary tract infection) Hematuria presence: without hematuria Urinary tract infection type: site unspecified Qualified Code(s): N39.0 - Urinary tract infection, site not specified
[2023-07-27] MEDS: cefTRIAXone SODIUM 2,000 MG in DEXTROSE 5 % MINI-B 50 ML IV SCH (20:15)
[2023-07-27] MEDS: busPIRone 5 MG TAB PO SCH (20:15)
[2023-07-27] MEDS: ONDANSETRON INJ 2 MG/ML 2 ML VIAL IV STA (21:46)
[2023-07-28 07:50] LABS: Hematocrit (blood only) 27.8 % (37.0-47.0); Hemoglobin 8.9 g/dl (12.0-16.0); Mean Corpuscular Hemoglobin 27.5 pg (25.0-34.0); Mean Corpuscular Volume 85.8 fL (80.0-100.0); Mean Platelet Volume 9.6 fL (9.4-12.4); Platelet Count 264 K/uL (130-400); RDW Coefficient of Variation 13.3 % (11.5-14.5); RDW Standard Deviation 41.7 fL (36.4-46.3); Red Blood Count 3.24 M/uL (4.20-5.40); White Blood Count 6.34 K/ul (4.8-10.8)
[2023-07-28 08:12] LABS: Anion Gap 5 (3-11); BUN Creatinine Ratio 15.9 (10-20); Blood Urea Nitrogen 7 mg/dl (6-23); Carbon Dioxide 22 mmol/L (21-32); Chloride 109 mmol/L (98-107); Creatinine Clr Calc Pharmacy 215.7 ml/min; Est GFR (African American) > 150.0 ml/min; Est GFR (Non-African American) 135.5 ml/min; Glucose 85 mg/dl (70-99(Fasting)); Magnesium 1.8 mg/dl (1.7-2.4); Phosphorus 3.5 mg/dl (2.5-4.9); Potassium 3.8 mmol/L (3.5-5.1); Sodium 136 mmol/L (136-145)
--- NOTE | 2023-07-28 09:30 | Hospitalist Progress Note ---
Date of Service July 28, 2023 Assessment & Plan (1) UTI (urinary tract infection): Plan: 28-year-old female G2, P1 at 15 weeks , history of kidney stones, obesity, GERD, irritable bowel syndrome, nonalcoholic fatty liver, history of vitamin B12 deficiency, history of gastric bypass, history of depression who was recently treated for UTI and also found to have right kidney stone comes in because again having bilateral flank pain and urinary symptoms. Patient was admitted on July 10, 2023 for UTI and flank pain and ultrasound showed 7 mm nonobstructing right renal calculi , received Rocephin in the hospital and discharged on Omnicef patient completed antibiotics last Thursday/ Thursday. And since last she again started having increased frequency and urgency of urine and flank pain. That got progressively worse and since yesterday she has had bilateral flank pain severe in nature and also spiking fevers and also feeling nauseous which prompted her to come to the ER. UA is again positive here. In the ER she is afebrile. Also,says has some blood in the urine. Recurrent urinary tract infection ESBL E.coli UTI Renal ultrasound July 10 shows nonobstructing 7 mm right lower pole renal stone Renal ultrasound done July 26 2023 again nonobstructive calculus in the lower pole of the right kidney UA is again positive Started on Rocephin in the ER Urine cultx from 07/26 now posit for ESBL E.coli - discussed w/ pharmacy - will switch from rocephin to ertapenem Will have ID consulted prior to pt's discharge Will follow the cultures Gentle fluids Pain control Urology consulted - cont. abx and IVF, no plan for urological intervention at this time G2, P1 at 15 weeks Consulted OBG - cont. abx treatment DVT prophylaxis SCDs Disposition Medical floor Full code Admission and Anticipated Discharge Date Admission Date: July 26, 2023 Subjective Pt seen in follow up of recurrent UTI, Has hx of renal stones Urology and guardian family member consulted No plan for urologic intervention at this time, Pt is currently laying down in NAD. Says she has more flank pain this time than she had during her last admission. Reports some hematuria. Currently feels fairly comfortable. Had fever at home, now afebrile. No chest pain or shortness of breath. cultx from 07/26 posit for ESBL E.coli- discussed w/ pharm, will start Ertapenem. Will have ID consulted before pt is discharged. Review of Systems Review of Systems: All systems reviewed & are unremarkable except as noted in Subjective Physical Exam Physical Exam: General- WD/WN young F in NAD Head- atraumatic Eyes- PERRL. ENT- oropharynx clear Neck- supple, no JVD. Lungs- clear to auscultation no wheezing or crackles. Heart- regular rhythm; no murmur, no gallop. Abdomen- normal bowel sounds, soft, nontender, b/l cva tenderness present. Extremities- no pretibial edema, Neuro- alert, oriented x 3; PERRL, no facial palsy; no dysarthria; moves extremities. Skin- warm & dry Results & Data Results & Data Vital Signs (Past 12 Hours) Vital Signs Temp Pulse Resp BP Pulse Ox O2 Del Method 07/28/23 08:32 Room Air 07/28/23 07:00 36.7 C 74 16 102/53 L 99 Room Air Laboratory Results 07/28/23 07/26/23 Range/Units 07:20 18:50 WBC 6.34 (4.8-10.8) K/ul RBC 3.24 L (4.20-5.40) M/uL Hgb 8.9 L (12.0-16.0) g/dl Hct 27.8 L (37.0-47.0) % MCV 85.8 (80.0-100.0) fL MCH 27.5 (25.0-34.0) pg MCHC 32.0 (32.0-36.0) g/dL RDW Std Deviation 41.7 (36.4-46.3) fL RDW Coeff of Coral 13.3 (11.5-14.5) % Plt Count 264 (130-400) K/uL MPV 9.6 (9.4-12.4) fL Sodium 136 (136-145) mmol/L Potassium 3.8 (3.5-5.1) mmol/L Chloride 109 H (98-107) mmol/L Carbon Dioxide 22 (21-32) mmol/L Anion Gap 5 (3-11) BUN 7 (6-23) mg/dl Creatinine 0.44 L (0.6-1.2) mg/dl Est Cr Clr Drug Dosing 215.7 ml/min Est GFR ( Amer) > 150.0 ml/min Est GFR (Non-Af Amer) 135.5 ml/min BUN/Creatinine Ratio 15.9 (10-20) Glucose 85 (70-99(Fasting)) mg/dl Calcium 8.0 L (8.6-10.3) mg/dl Phosphorus 3.5 (2.5-4.9) mg/dl Magnesium 1.8 (1.7-2.4) mg/dl POC Ur Test Cancelled Medications Administered Current Inpatient Medications Acetaminophen (Acetaminophen 325 Mg Tab) 650 mg PO Q4H PRN PRN Reason: pain/fever Stop: 08/25/23 23:24 Last Admin: 07/28/23 07:33 Dose: 650 mg Buspirone HCl (Buspirone 5 Mg Tab) 10 mg PO HS [facility] Stop: 08/26/23 20:59 Last Admin: 07/27/23 20:15 Dose: 10 mg Ferrous Sulfate (Ferrous Sulfate 325 Mg Tab) 325 mg PO BID [facility] Stop: 08/26/23 08:59 Last Admin: 07/27/23 20:15 Dose: 325 mg Hydromorphone HCl (Hydromorphone Inj 0.5 Mg/0.5 Ml Syr) 0.25 mg IV Q4H PRN PRN Reason: Severe Pain (Scale 7, 8, 9,10) Stop: 08/09/23 23:24 Last Admin: 07/28/23 07:33 Dose: 0.25 mg Ceftriaxone Sodium 2,000 mg/ (Dextrose) 50 mls @ 100 mls/hr IV Q24H [facility]; Protocol Stop: 08/06/23 19:59 Last Infusion: 07/27/23 21:03 Dose: Infused Sodium Chloride (Nss) 1,000 mls @ 80 mls/hr IV .[id number] [facility] Stop: 08/25/23 23:24 Last Admin: 07/28/23 03:44 Dose: 80 mls/hr Ondansetron HCl (Ondansetron 4 Mg Od Tab) 4 mg PO Q6H PRN PRN Reason: nausea and vomiting Stop: 08/25/23 23:24 Last Admin: 07/28/23 06:04 Dose: 4 mg Oxycodone/Acetaminophen (Oxycodone/Acetaminophen 5mg/325mg Tab) 1 tab PO Q8H PRN PRN Reason: Pain Stop: 08/09/23 23:24 Last Admin: 07/28/23 06:03 Dose: 1 tab Pantoprazole Sodium (Pantoprazole 40 Mg Tab) 40 mg PO DAILY [facility] Stop: 08/26/23 08:59 Last Admin: 07/27/23 08:37 Dose: 40 mg Prenat Multivit/Supercharger Repair Supervisor/Iron/Folic Ac ( Vitamin 1 Tab) 1 tab PO DAILY [facility]HELSE[facility] Stop: 08/26/23 08:59 Last Admin: 07/27/23 08:37 Dose: 1 tab Pyridoxine HCl (Pyridoxine Hcl 50 Mg Tab) 25 mg PO DAILY [facility] Stop: 08/26/23 08:59 Last Admin: 07/27/23 08:37 Dose: 25 mg Sertraline HCl (Sertraline Hcl 100 Mg Tablet) 100 mg PO DAILY [facility] Stop: 08/26/23 08:59 Last Admin: 07/27/23 08:38 Dose: 100 mg Vitamin D (Cholecalciferol 125 Mcg (5,000 Units) Tab) 125 mcg PO DAILY [facility] Stop: 08/26/23 08:59 Last Admin: 07/27/23 08:37 Dose: 125 mcg (1) UTI (urinary tract infection) Hematuria presence: without hematuria Urinary tract infection type: site unspecified Qualified Code(s): N39.0 - Urinary tract infection, site not specified
[2023-07-28] MEDS: LIDOCAINE 5% 1 PATCH TD STA (10:36)
[2023-07-28] MEDS: ERTAPENEM SODIUM 1,000 MG in SYRINGE 0 ML IV SCH (13:07)
[2023-07-28] MEDS: ACETAMINOPHEN 1,000 MG/100 ML VIAL IV PRN (14:31)
[2023-07-29 07:51] LABS: Hematocrit (blood only) 28.6 % (37.0-47.0); Hemoglobin 9.2 g/dl (12.0-16.0); Mean Corpuscular Hemoglobin 27.2 pg (25.0-34.0); Mean Corpuscular Hgb Conc 32.2 g/dL (32.0-36.0); Mean Corpuscular Volume 84.6 fL (80.0-100.0); Mean Platelet Volume 9.5 fL (9.4-12.4); Platelet Count 281 K/uL (130-400); RDW Standard Deviation 39.8 fL (36.4-46.3); Red Blood Count 3.38 M/uL (4.20-5.40); White Blood Count 6.68 K/ul (4.8-10.8)
[2023-07-29 08:09] LABS: Anion Gap 5 (3-11); BUN Creatinine Ratio 15.6 (10-20); Blood Urea Nitrogen 7 mg/dl (6-23); Calcium 8.1 mg/dl (8.6-10.3); Carbon Dioxide 22 mmol/L (21-32); Chloride 108 mmol/L (98-107); Est GFR (African American) > 150.0 ml/min; Est GFR (Non-African American) 134.5 ml/min; Glucose 84 mg/dl (70-99(Fasting)); Magnesium 1.8 mg/dl (1.7-2.4); Phosphorus 3.9 mg/dl (2.5-4.9); Potassium 3.9 mmol/L (3.5-5.1); Sodium 135 mmol/L (136-145)
--- NOTE | 2023-07-29 11:56 | Infectious Disease Consult ---
<Statement entered by Uday Howard MD - 07/29/23 13:34> Attending addendum This 28 y/o old 15-week female w/ obesity, kidney stones, and IBS, was admitted to [facility] on 07/26/23 for recurrent UTI but this time w/ ESBL E coli. She was just treated for relatively susceptible E coli in urine not too long ago. Renal US showed nonobstructive calyceal calculus in lower pole of R kidney. She is currently stable on ertapenem, feeling ready for discharge. Given the recurrent nature of the UTI and presence of the stone, I agree w/ total 14 days of ertapenem. I have discussed some preventive measure: hygiene after BM, urination after sexual intercourse, etc. I recommend that she gets urine culture after completion of abx therapy for monitoring. I saw and evaluated the patient today. I have reviewed the trainee note and agree. I spent a total of 50 minutes coordinating, documenting, and providing care for this patient excluding time spent in performance of separately billed services. Date of Service July 29, 2023 Telehealth Information I performed this visit using a real-time telehealth connection between my location and the patients location ([facility]). After connecting through interactive tele-video, patient was identified by name and date of and/or wristband check.Patient (or authorized healthcare accounts payable representative) was informed that this was a telemedicine visit and it was being conducted confidentially over secure lines. My office door was closed and no one else was present in the room with me.Patient (or authorized healthcare accounts payable representative) provided consent to proceed with the visit, expressed an understanding of privacy and security of the telemedicine visit, and gave permission to have a hospital accounts payable representative in the room in order to assist with the visit and to conduct portions of the visit, as needed. I informed the patient (or authorized healthcare accounts payable representative) that I reviewed their record and presented the opportunity for them to ask any questions regarding the visit today. The patient agreed to participate. Assessment & Plan (1) UTI (urinary tract infection): (2) History of renal calculi: (3) First trimester : (4) Nephrolithiasis: (5) Acute flank pain: Plan ESBL E.coli UTI/recurrent UTI: agree with continuing with IV ertapenem 1gm daily for ESBL E.coli UTI and we recommend to treat for total of 14 days as there is tiny 7mm non obstructing kidney stones as seen in ultrasound of kidney Recommended to take probiotics while being on antibiotics, educated on the measures to reduce the risk of recurrent UTI like micturating after sexual intercourse and wiping from front to back she needs repeat UA and urine cultures after completing antibiotics as asymptomatic UTI is an indication for treatment in patient is willing to get IV infusion at [facility] Infectious disease will stop actively following, please call us with any questions History of Present Illness History of Present Illness 28 Y G2, P1 at 15 weeks , history of kidney stones, obesity, GERD, irritable bowel syndrome, nonalcoholic fatty liver, history of vitamin B12 deficiency, history of gastric bypass, history of depression who was recently treated for UTI and also found to have right kidney stone comes in because again having bilateral flank pain and urinary symptoms. Patient was admitted on July 10, 2023 for UTI and flank pain and ultrasound showed 7 mm nonobstructing right renal calculi , received Rocephin in the hospital and discharged on Omnicef patient completed antibiotics last Thursday/ Thursday. And since last she again started having increased frequency and urgency of urine and flank pain. urology evaluated her and felt that if she had significant renal failure or develops acute febrile illness suspicious for pyelonephritis would then consider possible intervention versus transfer for nephrostomy tubes. UCX from 07/26: ESBL E.coli(S- augmentin, unasyn, ertapenem, Gent, Meropenem, Nitrofurantoin, Tobra, bactrim, zosyn) (R-ampicillin, cefazolin, cefepime, cefotaxime, CTX, cipro, Levaquin) BCX from 07/09: NGTD H/o E.coli UTI in 05/30:Non ESBL Allergies Allergy/AdvReac Type Severity Reaction Status Date / Time sulfamethoxazole Allergy Intermediate HIVES Verified 07/26/23 21:57 trimethoprim Allergy Intermediate HIVES Verified 07/26/23 21:57 morphine Allergy Mild Hives Verified 07/26/23 21:57 Home Medications Medication Instructions Recorded Confirmed Type buspirone 10 mg tablet 10 mg PO HS 03/09/23 07/26/23 History cholecalciferol (vitamin D3) 125 125 mcg PO DAILY 03/09/23 07/26/23 History mcg (5,000 unit) capsule omeprazole 20 mg capsule,delayed 20 mg PO DAILY 10/02/23 02/18/24 History release sertraline 100 mg tablet 100 mg PO DAILY 03/09/23 07/26/23 History ondansetron 4 mg disintegrating 4 mg PO Q6H PRN nausea and 06/03/23 07/26/23 Rx tablet vomiting #12 tabs 21-iron fu-folic acid 1 caplet PO DAILY 06/05/23 07/26/23 History [ Complete] cyanocobalamin (vitamin B-12) 1,000 mcg IM UD 07/10/23 07/26/23 History 1,000 mcg/mL injection solution ferrous sulfate 325 mg (65 mg 325 mg PO BID 07/10/23 07/26/23 History iron) tablet oxycodone-acetaminophen 5 mg-325 1 tab PO Q8H PRN Pain 07/10/23 07/26/23 History mg tablet pyridoxine (vitamin B6) 25 mg 25 mg PO DAILY 07/10/23 07/26/23 History tablet (Vitamin B-6) acetaminophen 325 mg capsule 325 mg PO QID PRN Pain 07/15/23 07/26/23 History terconazole 0.4 % vaginal cream 1 appful vaginal HS 7 days #45 07/23/23 07/26/23 Rx grams Patient History Medical History Hyperparathyroidism Ovarian cyst Depression Kidney stones GERD (gastroesophageal reflux disease) Diverticulitis Hx of perforated bowel >10yrs ago -s/p IV antibiotics Surgical History Hx of cystoscopy w/ stent-04/2022 [facility] History of Otilia-en-Y gastric bypass 6 months ago @ [facility] [place] History of cholecystectomy 06/10/19: Grade 1 view, MAC 3, ETT 7.5 atraumatic x 1. History of colonoscopy History of appendectomy 03/16/19: Grade 2 view, Veloz 2, ETT 7.5 atraumatic x 1. History of wisdom tooth extraction PONV (postoperative nausea and vomiting) Status post laparoscopic procedure REMOVED uterine surface endometriotic tissue Previous section Family History Uncle Diabetes Mother Kidney stones Breast cancer Hx of cholecystectomy Hypertension Father Hx of cholecystectomy Other No family history of adverse response to anesthesia Denies family history of Ovarian cancer Prostate cancer Colorectal cancer Social History Smoking Status: Never smoker Second Hand Exposure: No; Do You Dip or Chew Tobacco: No; Hx Alcohol Use: No Hx Substance Use: No Preferred Language: Emirati Communication Ability: Effective [employer] Required: No Beliefs That Will Affect Care: None marital status: marital status details: Umberto Cordero jose miguel ( [phone] Current Living Situation: Family and Significant Other Current Living Situation Comment: With son and boyfriend current occupational status: employed 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 Other Information That Helps Us Care for You: No Feels Safe at Home: Yes Safety Concerns: Feels Safe At This Time Assistive Devices: None Review of Systems All other ROS were negative Physical Exam Physical examination limited Const:appears well, alert and oriented and of stated age Results & Data Vital Signs (Past 12 Hours) Vital Signs Temp Pulse Resp BP Pulse Ox O2 Del Method 07/29/23 07:32 36.7 C 86 16 113/74 98 Room Air 07/29/23 01:45 36.5 C 87 16 121/74 98 Room Air Laboratory Results Abnormal Lab Results 07/29/23 07:18 WBC 6.68 RBC 3.38 L Hgb 9.2 L Hct 28.6 L MCV 84.6 MCH 27.2 MCHC 32.2 RDW Std Deviation 39.8 RDW Coeff of Coral 13.0 Plt Count 281 MPV 9.5 Sodium 135 L Potassium 3.9 Chloride 108 H Carbon Dioxide 22 Anion Gap 5 BUN 7 Creatinine 0.45 L Est Cr Clr Drug Dosing 211.0 Est GFR ( Amer) > 150.0 Est GFR (Non-Af Amer) 134.5 BUN/Creatinine Ratio 15.6 Glucose 84 Calcium 8.1 L Phosphorus 3.9 Magnesium 1.8 Diagnostic Findings Nonobstructive calyceal calculus in the lower pole the right kidney. No hydronephrosis or ureterolithiasis is seen. 5mm non obrstructive stone Recurrent urinary tract infection Renal ultrasound July 10 shows nonobstructing 7 mm right lower pole renal stone Renal ultrasound done today every 2023 again nonobstructive calculus in the lower pole of the right kidney Medications Administered Home Medications Medication Instructions Recorded Confirmed Last Taken buspirone 10 mg tablet 10 mg PO HS 03/09/23 07/26/23 07/08/23 21:00 cholecalciferol (vitamin D3) 125 125 mcg PO DAILY 03/09/23 07/26/23 07/09/23 07:00 mcg (5,000 unit) capsule omeprazole 20 mg capsule,delayed 20 mg PO DAILY 03/09/23 07/26/23 07/09/23 07:00 release sertraline 100 mg tablet 100 mg PO DAILY 03/09/23 07/26/23 07/08/23 21:00 ondansetron 4 mg disintegrating 4 mg PO Q6H PRN nausea and 06/03/23 07/26/23 06/29/23 tablet vomiting #12 tabs 21-iron fu-folic acid 1 caplet PO DAILY 06/05/23 07/26/23 07/09/23 07:00 [ Complete] cyanocobalamin (vitamin B-12) 1,000 mcg IM UD 07/10/23 07/26/23 Unknown 1,000 mcg/mL injection solution ferrous sulfate 325 mg (65 mg 325 mg PO BID 07/10/23 07/26/23 Unknown iron) tablet oxycodone-acetaminophen 5 mg-325 1 tab PO Q8H PRN Pain 07/10/23 07/26/23 Unknown mg tablet pyridoxine (vitamin B6) 25 mg 25 mg PO DAILY 07/10/23 07/26/23 Unknown tablet (Vitamin B-6) acetaminophen 325 mg capsule 325 mg PO QID PRN Pain 07/15/23 07/26/23 Unknown terconazole 0.4 % vaginal cream 1 appful vaginal HS 7 days #45 07/23/23 07/26/23 Unknown grams Active Medications Generic Name Dose Route Start Last Admin Trade Name Freq PRN Reason Stop Dose Admin Acetaminophen 650 mg 07/26/23 23:25 07/29/23 01:52 Acetaminophen 325 Mg Tab PO 08/25/23 23:24 650 mg Q4H PRN Administration pain/fever Buspirone HCl 10 mg 07/27/23 21:00 07/28/23 20:40 Buspirone 5 Mg Tab PO 08/26/23 20:59 10 mg HS CHELSEY Administration Ferrous Sulfate 325 mg 07/27/23 09:00 07/29/23 09:03 Ferrous Sulfate 325 Mg Tab PO 08/26/23 08:59 325 mg BID CHELSEY Administration Hydromorphone HCl 0.25 mg 07/26/23 23:25 07/29/23 07:37 Hydromorphone Inj 0.5 Mg/0.5 Ml Syr IV 08/09/23 23:24 0.25 mg Q4H PRN Administration Severe Pain (Scale 7, 8, 9,10) Sodium Chloride 1,000 mls @ 80 mls/hr 07/26/23 23:25 07/29/23 01:54 Nss IV 08/25/23 23:24 80 mls/hr .[id number] CHELSEY Administration Ertapenem 1,000 mg/ Syringe 10 mls @ 2 mls/min 07/28/23 13:00 07/28/23 13:07 IV 08/07/23 12:59 2 mls/min Q24H CHELSEY Administration Acetaminophen 1,000 mg in 100 mls @ 400 mls/hr 07/28/23 14:16 07/28/23 14:47 Ofirmev IV 07/31/23 14:15 Infused Q8H PRN Infusion Pain Miscellaneous 1 each 07/28/23 21:00 07/28/23 22:12 Remove Lidoderm Patch N/A 08/27/23 20:59 1 each DAILY@2100 CHELSEY Administration Ondansetron HCl 4 mg 07/26/23 23:25 07/29/23 07:37 Ondansetron 4 Mg Od Tab PO 08/25/23 23:24 4 mg Q6H PRN Administration nausea and vomiting Oxycodone/Acetaminophen 1 tab 07/26/23 23:25 07/29/23 08:58 Oxycodone/Acetaminophen 5mg/325mg Tab PO 08/09/23 23:24 1 tab Q8H PRN Administration Pain Pantoprazole Sodium 40 mg 07/27/23 09:00 07/29/23 09:04 Pantoprazole 40 Mg Tab PO 08/26/23 08:59 40 mg DAILY CHELSEY Administration Prenat Multivit/[place]/Iron/Folic Ac 1 tab 07/27/23 09:00 07/29/23 09:03 Vitamin 1 Tab PO 08/26/23 08:59 1 tab DAILY CHELSEY Administration Pyridoxine HCl 25 mg 07/27/23 09:00 07/29/23 09:09 Pyridoxine Hcl 50 Mg Tab PO 08/26/23 08:59 Not Given DAILY CHELSEY Sertraline HCl 100 mg 07/27/23 09:00 07/29/23 09:03 Sertraline Hcl 100 Mg Tablet PO 08/26/23 08:59 100 mg DAILY CHELSEY Administration Vitamin D 125 mcg 07/27/23 09:00 07/29/23 09:03 Cholecalciferol 125 Mcg (5,000 Units) Tab PO 08/26/23 08:59 125 mcg DAILY CHELSEY Administration (1) UTI (urinary tract infection) Hematuria presence: without hematuria Urinary tract infection type: site unspecified Qualified Code(s): N39.0 - Urinary tract infection, site not specified
--- NOTE | 2023-07-29 16:46 | Hospitalist Progress Note ---
Date of Service July 29, 2023 Assessment & Plan (1) UTI (urinary tract infection): Plan: 28-year-old female G2, P1 at 15 weeks , history of kidney stones, obesity, GERD, irritable bowel syndrome, nonalcoholic fatty liver, history of vitamin B12 deficiency, history of gastric bypass, history of depression who was recently treated for UTI and also found to have right kidney stone comes in because again having bilateral flank pain and urinary symptoms. Patient was admitted on July 10, 2023 for UTI and flank pain and ultrasound showed 7 mm nonobstructing right renal calculi , received Rocephin in the hospital and discharged on Omnicef patient completed antibiotics last Thursday/ Thursday. And since last she again started having increased frequency and urgency of urine and flank pain. That got progressively worse and since yesterday she has had bilateral flank pain severe in nature and also spiking fevers and also feeling nauseous which prompted her to come to the ER. UA is again positive here. In the ER she is afebrile. Also,says has some blood in the urine. Recurrent urinary tract infection ESBL E.coli UTI Renal ultrasound July 10 shows nonobstructing 7 mm right lower pole renal stone Renal ultrasound done July 26 2023 again nonobstructive calculus in the lower pole of the right kidney UA is again positive for ESBL E. coli. ID evaluated, recommend 14 days of ertapenem therapy, urine analysis and culture at the completion of therapy. Urology evaluated, conservative management for now. Pain control Possible DC tomorrow on IV ertapenem. G2, P1 at 15 weeks Consulted OBG - cont. abx treatment DVT prophylaxis SCDs Disposition Medical floor Full code Admission and Anticipated Discharge Date Admission Date: July 26, 2023 Subjective Patient was seen and examined at bedside. Patient was sitting up in bed, on room air, NAD, resting comfortably. Patient denies any febrile episodes, headache, dizziness, chest pain, shortness of breath. Patient reports eating okay and moving bowels okay. Physical Exam Physical Exam: General- WD/WN young F in NAD Head- atraumatic Eyes- PERRL. ENT- oropharynx clear Neck- supple, no JVD. Lungs- clear to auscultation no wheezing or crackles. Heart- regular rhythm; no murmur, no gallop. Abdomen- normal bowel sounds, soft, nontender, b/l cva tenderness present. Extremities- no pretibial edema, Neuro- alert, oriented x 3; PERRL, no facial palsy; no dysarthria; moves extremities. Skin- warm & dry Results & Data Results & Data Vital Signs (Past 12 Hours) Vital Signs Temp Pulse Resp BP Pulse Ox O2 Del Method 07/29/23 14:45 36.9 C 85 16 112/75 100 Room Air 07/29/23 07:32 36.7 C 86 16 113/74 98 Room Air (1) UTI (urinary tract infection) Hematuria presence: without hematuria Urinary tract infection type: site unspecified Qualified Code(s): N39.0 - Urinary tract infection, site not specified
[2023-07-30 07:51] LABS: Hemoglobin 9.3 g/dl (12.0-16.0); Mean Corpuscular Hemoglobin 27.6 pg (25.0-34.0); Mean Corpuscular Hgb Conc 33.2 g/dL (32.0-36.0); Mean Corpuscular Volume 83.1 fL (80.0-100.0); Mean Platelet Volume 9.7 fL (9.4-12.4); Platelet Count 284 K/uL (130-400); RDW Coefficient of Variation 13.1 % (11.5-14.5); RDW Standard Deviation 39.6 fL (36.4-46.3); Red Blood Count 3.37 M/uL (4.20-5.40); White Blood Count 6.45 K/ul (4.8-10.8)
[2023-07-30 08:09] LABS: Anion Gap 5 (3-11); BUN Creatinine Ratio 15.8 (10-20); Blood Urea Nitrogen 6 mg/dl (6-23); Calcium 8.1 mg/dl (8.6-10.3); Carbon Dioxide 21 mmol/L (21-32); Chloride 108 mmol/L (98-107); Creatinine Clr Calc Pharmacy 249.8 ml/min; Est GFR (African American) > 150.0 ml/min; Est GFR (Non-African American) 142.2 ml/min; Glucose 83 mg/dl (70-99(Fasting)); Potassium 3.9 mmol/L (3.5-5.1); Sodium 134 mmol/L (136-145)
--- NOTE | 2023-07-30 10:54 | Discharge Summary ---
Date of Service July 30, 2023 Admission HPI Per Admitting Provider 28-year-old female G2, P1 at 15 weeks , history of kidney stones, obesity, GERD, irritable bowel syndrome, nonalcoholic fatty liver, history of vitamin B12 deficiency, history of gastric bypass, history of depression who was recently treated for UTI and also found to have right kidney stone comes in because again having bilateral flank pain and urinary symptoms. Patient was admitted on July 10, 2023 for UTI and flank pain and ultrasound showed 7 mm nonobstructing right renal calculi , received Rocephin in the hospital and discharged on Omnicef patient completed antibiotics last Thursday/ Thursday. And since last she again started having increased frequency and urgency of urine and flank pain. That got progressively worse and since yesterday she has had bilateral flank pain severe in nature and also spiking fevers and also feeling nauseous which prompted her to come to the ER. UA is again positive here. In the ER she is afebrile. Also,says has some blood in the urine. Hem odynamics are okay. Says has some headache. Vision is okay. No runny nose or sore throat or cough. No chest pain or shortness of breath. No abdominal pain. Normal bowel movements. Past medical history. As mentioned above Past surgical history. Colonoscopy. Cystourethroscopy with lithotripsy. EGD. Exploration of abdomen for endometriosis. Laparoscopic procedure and liver. Laparoscopic gastric bypass Otilia-en-Y. Laparoscopic cholecystectomy. Laparoscopic appendectomy. Social history. . No smoking. No alcohol use. No drug use. Family history. Maternal grandmother had breast cancer. Heart disorder. Thyroid disorder. Maternal grandfather had heart disorder. Lung disorder. Paternal grandfather had heart disorder. Mother has hypertension. Breast cancer. Admission Exam Per Admitting Provider General- Not in distress. Head- atraumatic Eyes- PERRL. ENT- oropharynx clear Neck- supple, no JVD. Lungs- clear to auscultation no wheezing or crackles. Heart- regular rhythm; no murmur, no gallop. Abdomen- normal bowel sounds, soft, nontender, b/l cva tenderness present. Extremities- no pretibial edema, Neuro- alert, oriented x 3; PERRL, no facial palsy; no dysarthria; moves extremities. Skin- warm & dry Principal Diagnosis Recurrent UTI in patient ESBL E. coli UTI Discharge Exam General- WD/WN young F in NAD Head- atraumatic Eyes- PERRL. ENT- oropharynx clear Neck- supple, no JVD. Lungs- clear to auscultation no wheezing or crackles. Heart- regular rhythm; no murmur, no gallop. Abdomen- normal bowel sounds, soft, nontender, b/l cva tenderness present. Extremities- no pretibial edema, Neuro- alert, oriented x 3; PERRL, no facial palsy; no dysarthria; moves extremities. Skin- warm & dry Discharge Data Allergies Allergy/AdvReac Type Severity Reaction Status Date / Time sulfamethoxazole Allergy Intermediate HIVES Verified 07/26/23 21:57 trimethoprim Allergy Intermediate HIVES Verified 07/26/23 21:57 morphine Allergy Mild Hives Verified 07/26/23 21:57 Consultations 07/26/23 20:54 ED Decision to Admit Stat 07/27/23 08:00 Consult Obstetrics Routine Consult Urology Routine 07/28/23 16:50 Consult Infectious Diseases Routine Ordered Studies 07/26/23 19:04 US Renal Bladder [US renal/blad retro comp] Stat Hospital Course (1) UTI (urinary tract infection): 28-year-old female G2, P1 at 15 weeks , history of kidney stones, obesity, GERD, irritable bowel syndrome, nonalcoholic fatty liver, history of vitamin B12 deficiency, history of gastric bypass, history of depression who was recently treated for UTI and also found to have right kidney stone comes in because again having bilateral flank pain and urinary symptoms. Patient was admitted on July 10, 2023 for UTI and flank pain and ultrasound showed 7 mm nonobstructing right renal calculi , received Rocephin in the hospital and discharged on Omnicef patient completed antibiotics last Thursday/ Thursday. And since last she again started having increased frequency and urgency of urine and flank pain. That got progressively worse and since yesterday she has had bilateral flank pain severe in nature and also spiking fevers and also feeling nauseous which prompted her to come to the ER. UA is again positive here. In the ER she is afebrile. Also,says has some blood in the urine. She was managed for following: Recurrent urinary tract infection ESBL E.coli UTI Renal ultrasound July 10 shows nonobstructing 7 mm right lower pole renal stone Renal ultrasound done July 26 2023 again nonobstructive calculus in the lower pole of the right kidney UA is again positive for ESBL E. coli. ID evaluated, recommend 14 days of ertapenem therapy and probiotic while on antibiotic, urine analysis and culture at the completion of therapy. Urology evaluated, conservative management for now. Patient reports feeling better overall, has US guided IV line for IV antibiotic therapy upon discharge. G2, P1 at 15 weeks Consulted OBG - cont. abx treatment DVT prophylaxis SCDs Disposition Medical floor Full code Patient is being discharged home with following instruction at the point of discharge: Follow-up with your primary care physician within a week time and likely you will need labs CBC/CMP/magnesium/phosphorus. You are being discharged on IV ertapenem to complete 14 days of ertapenem therapy. You will need repeat urine analysis and culture at the completion of therapy. Coordinate with your PCP office to set up the test. Follow-up with your gynecology and Obs as prior. Take your medications as prescribed. Please make sure that you are able to get your medications today by calling your pharmacy before you leave the hospital so that your treatment continuity is not broken. Home Health Attestation I certify that this patient is under my care and that I, or a physicians accounting assistant working with me, had a face to-face encounter that meets the home health [id number] encounter requirements with this patient. The encounter with the patient was in whole, or in part, for the following medical condition, which is the primary reason for home health care (list medical condition): I certify that, based on my findings, the following services are medically necessary home health services: My clinical findings support the need for the above services because: Further, I certify that my clinical findings support that this patient is homebound (i.e. absences from home require considerable and taxing effort and are for medical reasons or confucianist services or infrequently or of short duration when for other reasons) because: Certification for Home Health Services: Based on the above findings, I certify that this patient is confined to the home and needs intermittent care home care, physical therapy and/or speech therapy or continues to need occupational therapy. The patient is under my care, and I have initiated the establishment of the plan of care. This patient will be followed by a physician who will periodically review the plan of care. Total Time Total Time Spent Total Time Spent (In Minutes): 45 Discharge Plan Discharge Items Patient Disposition: Home - Self-Care Reason For Visit: UTI, KIDNEY STONE Discharge Diagnosis: Recurrent UTI in patient ESBL E. coli UTI Activity: Resume your previous activity Non-emergency contact: Primary Care Provider Call non-emergency contact if: you have any medication questions, your symptoms worsen and your temperature is above 101 Follow-up/Referrals: Dimas Doty DO [Primary Care Provider] - (Date & Time 08/03/2023 1:40 PM Provider Dimas Doty DO Department [facility] ) Diet: Regular OB Addtl Attending Provider Instructions: Follow-up with your primary care physician within a week time and likely you will need labs CBC/CMP/magnesium/phosphorus. You are being discharged on IV ertapenem to complete 14 days of ertapenem therapy. You will need repeat urine analysis and culture at the completion of therapy. Coordinate with your PCP office to set up the test. Follow-up with your gynecology and Obs as prior. Take your medications as prescribed. Please make sure that you are able to get your medications today by calling your pharmacy before you leave the hospital so that your treatment continuity is not broken. Pending Studies at Discharge: No Stand-Alone Forms: My Cl[facility], Smoking Cessation Medications and DC Order Prescriptions: New ertapenem 1 gram recon soln 1 g IV DAILY Qty: 11 0RF Probiotic 15 billion cell capsule, sprinkle 1 cap PO DAILY 14 Days Qty: 14 0RF Rx Instructions: do not crush/chew/cut; swallow whole OR may open and sprinkle in cold drink/food Continued terconazole 0.4 % cream 1 appful vaginal HS 7 Days Qty: 45 0RF Rx Instructions: End on 07/30/23 21-iron fu-folic acid [ Complete] 1 caplet PO DAILY acetaminophen 325 mg capsule 325 mg PO QID PRN (Reason: Pain) sertraline 100 mg tablet 100 mg PO DAILY buspirone 10 mg tablet 10 mg PO HS omeprazole 20 mg capsule,delayed release(DR/EC) 20 mg PO DAILY cholecalciferol (vitamin D3) 125 mcg (5,000 unit) capsule 125 mcg PO DAILY ondansetron 4 mg tablet,disintegrating 4 mg PO Q6H PRN (Reason: nausea and vomiting) Qty: 12 0RF pyridoxine (vitamin B6) [Vitamin B-6] 25 mg Tablet 25 mg PO DAILY oxycodone-acetaminophen 5-325 mg tablet 1 tab PO Q8H PRN (Reason: Pain) cyanocobalamin (vitamin B-12) 1,000 mcg/mL Solution 1,000 mcg IM UD ferrous sulfate 325 mg (65 mg iron) Tablet 325 mg PO BID Discharge Orders: Discharge Order (Routine); Ordered 07/30/23 Ordered By: Santos Damian Admission Data Admit Date/Time: 07/26/23 21:32 Attending Provider: Santos Damian Admit Provider: James Ye Primary Care Provider: Dimas Doty Other Providers: James Ye; Kareem Kulkarni; Lenard Mack; Pillo Padilla; Uday Howard; Albert Serrano I.; Denton Hahn II; Denisa Vo; Antelmo Borjas; Keven Blake; Jennifer Soto; Jennifer Sosa; Nicole,Fax
[2023-07-30] MEDS: ADVANCED PROBIOTIC 650 MG CAPSULE PO SCH (12:11)
== END 2023-07-30 13:11 | disposition home or self-care (01) | DRG 832 ==
LOC: ED 18:13 → SUATTDRO 21:32 → 3N 21:32

== ENCOUNTER 2023-12-07 16:34 | Observation (INO) ==
--- NOTE | 2023-12-07 17:54 | History & Physical Report ---
Date of Service December 07, 2023 Assessment & Plan (1) VRE (vancomycin resistant enterococcus) culture positive: Plan: Failed ertapenem, Daptomycin. Discussed with Dr. Staples (urology at [facility]) re: treatment which will first be medical and then potentially surgical (percuta neous drain vs stone removal) at their facility. For now, hydration, pain relief, and if time allows will start abx here at [facility]. I am still awaiting response from on-call ID consultation which I paged earlier. (2) Acute flank pain: (3) Pyelonephritis: (4) Nephrolithiasis: (5) Encounter for supervision of normal in multigravida: Plan: Management per Dr. Ribeiro, accepting OBGYN at [facility]. Consideration for possible early delivery to allow removal of stones which are likely harboring resistant bacteria; joint care decisions likely between OB and Urology to maximize outcomes for mom and baby. History of Present Illness Primary Care Provider: Dimas Doty, DO 28yo at 32w5d, with complicated by bilateral renal stones, ESBL/VRE treated by ertapenem and then daptomycin, as well as COVID in October, gastric bypass, anemia. Patient called our office today with severe pain at midnight last night, with continued feelings of pelvic pain, chills, sweating, nausea. She is not feeling discrete contractions but does note either menstrual-type cramping or bladder pain, stating she has a long history of urinary issues and has never really been able to tell the two apart. She has not had LOF, VB, Ctx and she has good FM. Of note: Pre-preg has been under care of our urology group for stones and non-resistant UTIs. Jul, during preg: Admitted at [facility] for ESBL Pyelo with Ertapenem treatment. PICC line. October, preg: Admitted at [facility] for VRE Pyelo with Daptomycin treatment. Then, November 27 she had urinary tract infection symptoms and went to [facility] in [place]. They sent her to [place] [facility], where she had a consultation with the on-call OBGYN (?Leon) and a renal scan and urinary testing. Urine showed EColi but no sensitivities are available on the portal report she showed me, UA was very consistent with UTI, her scan showed bilateral renal stones (have been as big as >1cm in October, were seen at ~7mm that day) and bilateral hydronephrosis. Patient was prescribed macrobid x5 days and sent home. December 02: Patient called her PCP Office ([facility]/Dimas Marie) and c/o no relief in her urinary symptoms. Reports that she was told she had already been appropriately treated and nothing further was needed at that time. Since then she has used tylenol 1000mg PO as often as every 4-6 hours for subjective fevers, chills and malaise. Then today, she began to find the feelings of pain, sweating, chills, nausea too much to bear and called [employer], wondering if perhaps something was now wrong with the . Last dose of 1000mg tylenol was 1-2 hours prior to presentation. Allergies Allergy/AdvReac Type Severity Reaction Status Date / Time sulfamethoxazole Allergy Intermediate HIVES Verified 11/27/23 12:54 trimethoprim Allergy Intermediate HIVES Verified 11/27/23 12:54 Home Medications Medication Instructions Recorded Confirmed Type buspirone 10 mg tablet 10 mg PO HS 03/09/23 11/27/23 History cholecalciferol (vitamin D3) 125 125 mcg PO DAILY 03/09/23 11/27/23 History mcg (5,000 unit) capsule sertraline 100 mg tablet 100 mg PO DAILY 03/09/23 11/27/23 History cyanocobalamin (vitamin B-12) 1,000 mcg IM UD 07/10/23 11/27/23 History 1,000 mcg/mL injection solution ferrous sulfate 325 mg (65 mg 325 mg PO BID 07/10/23 11/27/23 History iron) tablet pyridoxine (vitamin B6) 25 mg 25 mg PO DAILY 07/10/23 11/27/23 History tablet (Vitamin B-6) vit no.133-ferrous 1 tab PO DAILY 11/02/23 11/27/23 History fumarate 28 mg-folic acid 800 mcg tablet () iron sucrose 100 mg iron/5 mL 300 mg (15 mL) IV DAILY 1 dose #15 11/16/23 11/27/23 Rx intravenous solution mL Patient History Medical History Ovarian cyst Kidney stones GERD (gastroesophageal reflux disease) Surgical History Hx of cystoscopy w/ stent-04/2022 [facility] History of Otilia-en-Y gastric bypass 10/04/21 [facility] History of cholecystectomy 06/10/19: Grade 1 view, MAC 3, ETT 7.5 atraumatic x 1. History of colonoscopy History of appendectomy 03/16/19: Grade 2 view, Veloz 2, ETT 7.5 atraumatic x 1. History of wisdom tooth extraction PONV (postoperative nausea and vomiting) Status post laparoscopic procedure REMOVED uterine surface endometriotic tissue Previous section 02/20/2017 Family History Uncle Diabetes Mother Kidney stones Breast cancer Hx of cholecystectomy Hypertension Father Hx of cholecystectomy Other No family history of adverse response to anesthesia Denies family history of Ovarian cancer Prostate cancer Colorectal cancer Social History Smoking Status: Never smoker Second Hand Exposure: No; Do You Dip or Chew Tobacco: No; Hx Alcohol Use: No Hx Substance Use: No Preferred Language: Cypriot Communication Ability: Effective Trade Show Coordinator Required: No Beliefs That Will Affect Care: None marital status: marital status details: Umberto gillespie ( [phone] Current Living Situation: Family and Significant Other Current Living Situation Comment: With son and boyfriend current occupational status: employed 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 Back: ++TTP on R CVA and +TTP on L CVA Abdomen: Gravid, no tenderness with uterine palpation Vaginal: Cervix cl/th/hi/post/firm, FHT Cat 1 Earl: Contractions ~Q10m, irregular, not correlating with pain, not palpable (ie [place], suspected) Urine: dark yellow, dip +blood, trace protein, full UA/C&S ordered but pending. Serum labs ordered/pending. Recent imaging and labs reviewed, though care in the [facility] system is unavailable to me. Results & Data Vital Signs (Past 12 Hours) Vital Signs Temp Pulse Resp BP 12/07/23 16:54 98.2 F 20 12/07/23 16:49 120 H 125/86 Coding Level of Care Code None Diagnoses VRE (vancomycin resistant enterococcus) culture positive Z22.39 Acute flank pain R10.9 Pyelonephritis N12 Nephrolithiasis N20.0 Encounter for supervision of normal in multigravida Z34.80
[2023-12-07] MEDS ORDERED: LIDOCAINE 1% LOCAL 20 ML VIAL INFIL PRN (18:16)
[2023-12-07] MEDS: LACTATED RINGER'S 1,000 ML IV SCH (18:45)
[2023-12-07] MEDS: ONDANSETRON INJ 2 MG/ML 2 ML VIAL IV PRN (18:45)
[2023-12-07] MEDS: MoRPHine SULFATE 2 MG/ML CARP IV STA (18:51)
[2023-12-07 19:07] LABS: Basophils # (auto) 0.04 K/uL (0.00-0.20); Basophils % (auto) 0.6 %; Eosinophils # (auto) 0.02 K/uL (0.00-0.50); Eosinophils % (auto) 0.3 %; Hematocrit (blood only) 29.7 % (37.0-47.0); Hemoglobin 9.3 g/dl (12.0-16.0); Immature Granulocytes # (auto) 0.04 K/uL (0.01-0.20); Immature Granulocytes % (auto) 0.6 %; Lymphocytes % (auto) 22.1 %; Mean Corpuscular Hemoglobin 24.7 pg (25.0-34.0); Mean Corpuscular Hgb Conc 31.3 g/dL (32.0-36.0); Mean Platelet Volume 11.1 fL (9.4-12.4); Monocytes # (auto) 0.74 K/uL (0.11-0.59); Monocytes % (auto) 10.9 %; Neutrophils # (auto) 4.46 K/uL (1.40-6.50); Neutrophils % (auto) 65.5 %; Platelet Count 319 K/uL (130-400); RDW Coefficient of Variation 17.8 % (11.5-14.5); Red Blood Count 3.76 M/uL (4.20-5.40)
[2023-12-07 19:18] LABS: Appearance Urine Cloudy (Clear); Bacteria Urine Automated 2+ (None Seen); Bilirubin Urine Negative (Negative); Blood Urine Negative (Negative); Calcium Oxalate Crystals Urine Present (None Prsent); Color Urine Yellow; Epithelial Cell Urine Auto >20 /hpf (0-2); Glucose Urine UA Negative (Negative); Ketones Urine Trace (Negative); Leukocyte Esterase Urine 2+ (Negative); Nitrite Urine Negative (Negative); Protein Urine 1+ (Negative); Specific Gravity Urine 1.023 (1.000-1.030); Urobilinogen Urine Negative (Negative)
[2023-12-07 19:18] LABS: Albumin Globulin Ratio 1.1 (0.9-2); Albumin Level 3.4 gm/dl (3.4-5.0); BUN Creatinine Ratio 15.1 (10-20); Bilirubin,Total 0.3 mg/dl (0.2-1.0); Calcium 8.7 mg/dl (8.6-10.3); Creatinine Clr Calc Pharmacy 186.2 ml/min; Est GFR (African American) 147.7 ml/min; Est GFR (Non-African American) 127.4 ml/min; Globulin 3.1 gm/dl (2.5-4.0); Potassium 3.8 mmol/L (3.5-5.1); Total Protein 6.5 gm/dl (6.0-8.3)
--- OUTSIDE RECORDS SUMMARY | 2023-12-08 08:01 | External Medical Summary | Summary of Care ---
Author Name Unknown Organization [facility] Address [address] [place] [address] Phone [phone] Care Team Providers Care Wafer Substrate Tester Name Role Phone Dimas Doty DO Primary Care Provider [phone] Reason for Visit * Reason Onset Date Comments Test Results 12/03/2023 Encounter Details Date Type Department Care Team (Late st Contact Info) Description 12/03/2023 Telephone Family Practice [facility] [place] [address] [facility] [place] [address] Dimas Doty DO [address] [facility] [place] [address] Test Results Allergies Active Allergy Reactions Criticality Noted Date Comments Prochlorperazine Psych complications 06/12/2020 Probably dystonic reaction. The patient does tolerate Phenergan Morphine Hives Low 03/20/2019 Pt feels the rash may have been from tape at the IV site. Sulfamethoxazole Hives High 03/03/2021 Trimethoprim Hives High 05/02/2018 documented as of this encounter (statuses as of 12/03/2023) Medications Medication Sig Dispensed Refills Start Date End Date Status Acetaminophen 325 MG Oral Capsule Take 325 mg by mouth every 6 hours as needed for Pain, Mild. 07/15/2023 Active [facility] Gummy 0.4-113.5 MG Oral Tablet Chewable Take 1 Tablet by mouth in the morning. Active Ferrous Sulfate 325 (65 Fe) MG Oral Tablet (Feosol)Indications:H istory of gastric bypass,Other iron deficiency anemia 1 daily 09/02/2023 Active Tamsulosin HCl 0.4 MG Oral Capsule (Flomax) Take 1 Capsule by mouth in the morning. 28 Capsule 11/03/2023 Active busPIRone HCl 10 MG Oral Tablet (Buspar) Take 1 Tablet by mouth in the morning. Active Omeprazole 20 MG Oral Capsule Delayed Release (PriLOSEC) Take 1 Capsule by mouth in the morning. Active Cyclobenzaprine HCl 10 MG Oral Tablet (Flexeril) Take 1 Tablet by mouth every 6 hours as needed for Pain, Moderate. 10 Tablet 11/23/2023 Active Sertraline HCl 100 MG Oral Tablet (Zoloft)Indications:R ecurrent major depressive disorder, in full remission (HCC) TAKE 1 & 1/2 TABLETS BY MOUTH IN THE MORNING. 30 Tablet 11 11/26/2023 Active oxyCODONE-Acetaminoph en 5-325 MG Oral Tablet (Percocet)Indications :Kidney stone Take 1 Tablet by mouth every 8 hours as needed for Pain, Severe. Space out to try to decrease dose with . 20 Tablet 11/30/2023 Active Calcium Carbonate Antacid 500 MG Oral Tablet Chewable (Tums) Take 2 Tablets by mouth daily as needed for Heartburn. Active Nitrofurantoin Monohyd Macro 100 MG Oral Capsule (Macrobid) Take 1 Capsule by mouth in the morning and 1 Capsule before bedtime. Do all this for 5 days. With food. Until gone.. 10 Capsule 11/28/2023 12/03/2023 Active Ondansetron 4 MG Oral Tablet Disintegrating (Zofran) Place 1 Tablet on tongue every 8 hours as needed for Nausea. 20 Tablet 11/28/2023 Active Ondansetron 4 MG Oral Tablet DisintegratingIndicat ions:Bilateral renal stones Place 1 Tablet on tongue every 8 hours as needed for Nausea. dissolve on tongue. 20 Tablet 11/28/2023 Active oxyCODONE HCl 5 MG Oral Tablet (Oxy IR) Take 1 Tablet by mouth every 8 hours as needed for Pain, Severe. 5 Tablet 11/29/2023 Active documented as of this encounter (statuses as of 12/03/2023) Active Problems Problem Noted Date Diagnosed Date Dysuria 11/28/2023 with 32 completed weeks gestation 11/07 Irregular uterine contractions 11/03/2023 Hyperemesis affecting , antepartum 08/07 Calculus of kidney affecting in third trimester 08/20/2023 16 weeks gestation of 08/13/2023 Low grade squamous intraepit helial lesion (LGSIL) on cervical Pap smear 08/13/2023 Cervical high risk human pap illomavirus (HPV) DNA test positive 08/13/2023 Previous section co mplicating , antepartum condition or complication 08/13/2023 History of gestational hypertension 08/13/2023 Previous gastric bypass affe cting in second trimester, antepartum 08/13/2023 VRE (vancomycin resistant enterococcus) culture positive 08/10/2023 Encounter for adjustment and management of vascular access device 08/07/2023 Acute pyelonephritis 08/01/2023 Renal colic 08/01/2023 Retention of urine 08/01/2023 Right flank pain 08/01/2023 Right flank pain 08/01/2023 UTI (urinary tract infection) 08/01/2023 Iron deficiency 08/01/2023 Hyperparathyroidism 08/01/2023 Hydronephrosis 08/01/2023 Depression 08/01/2023 Cyst of ovary 08/01/2023 Intestinal postoperative nonabsorption Other dietary vitamin B12 deficiency anemia 10/06 History of gastric bypass 02/11/2022 Obesity, Class III, BMI 40-49.9 (morbid obesity) 10/05/2021 NAFLD (nonalcoholic fatty liver disease) 022 Menorrhagia with regular cycle 04/16/2021 [facility]EARCH OTHER*[id number] 01/24/2021 Gastroesophageal reflux disease with esophagitis 01/04/2019 Recurrent major depressive disorder, in full rem ission 01/04/2019 Irritable bowel syndrome wit h both constipation and diarrhea 01/04/2019 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 07/18/16 Renal stones 07/07/2016 Estimated Date of Delivery Comme nts Yes 01/22/2024 Date entered edgar or to episode creation documented as of this encounter (statuses as of 12/03/2023) Resolved Problems Problem Noted Date Diagnosed Date Resolved Date Hematuria 08/01/2023 08/01/2023 Finding of above normal blood pressure 08/01/2023 08/01/2023 Crampy pain associated with menses 08/01/2023 08/01/2023 Cholelithiasis 08/01/2023 08/01/2023 Biliary colic 08/01/2023 08/01/2023 Abdominal pain 08/01/2023 08/01/2023 Prediabetes 09/16/2021 01/16/2022 Overview: Per Prediabetes protocol [...] as of this encounter (statuses as of 12/03/2023) Immunizations Name Administration Dates Next Due COVID-19 mRNA, LNP-s, No Pre serve, 2-Dose Series (Pfizer) 04/03/2021,06/26/2020,06/05/2020 DTaP Dipth/Tet/Acell Pertussis (Infanrix), Peds 01/06/2017,09/28/1997,09/18/1994,08/15,1993,1993 HIB PRP-T, 4 Dose, PF, IM (Hiberix) 01/1994,1993,1993,04/26 Haemophilius B (HIB), unspecified 1993,1993,1993,04/26 Hepatitis B, 0-19 yrs 1993,1993,02/07 Hepatitis B, 20+ yrs 02/08/2014 MMR - Measles/Mumps/Rubella Vaccine 09/28/1997,1 1993 Meningococcal Conjugate Vacc ine (Menactra/Menveo) 01/08/2011,12/15/2007 Meningococcal MCV4P Conjugat e Vaccine (Menactra) 01/08/2011,12/15/2007 OPV - Polio Virus Vaccine (Oral) 998,05/15/1994,1993,04/26 PPD 02/08/2014,01/14/2014 Seasonal Influenza Virus Vac cine, Unspecified Formulation 04/06/2023,03/20/2023,03/20/2023,03/26,03/14/2021,03/14/2021,03/08/2020 ,03/08/2019,06/09/2018,02/20/2018,04/09,03/22/2016,02/08/2014, 9,03/26/1996 Seasonal Influenza, PF, 6 M & above, IM , (FluLaval or Fluzone) 03/26/2022,03/08/2020,03/09/2019(Defer red: Patient Refused - pt stated will receive at work) Seasonal Influenza, Quad, Na curtis (Flumist) 03/14/2021 Seasonal Influenza, Quadriva lent, No Preserve, IM 03/13/2021,03/19/2020,03/08/2019,02/20,03/22/2016 Seasonal Influenza, Split, I IV3, No Preserve, Inj 04/28/2017,04/30/1999,03/26/1996 Seasonal Influenza, Split, I IV3, With Preserve, Inj 02/08/2014 TDAP (age 10 and older)(Boostrix) 2016,01/06/2017,03/30/2015,04/25 Varicella Vaccine (Chicken Pox) 12/27/2008,06/12 documented as [...] money to get more. Never true 05/05/2023 Childcare Answer Date Recorded Do you feel overwhelmed with taking care of a child, family member or friend? No 05/05/2023 Does your family need help f inding childcare? (Household - for ages 0-17 years) Not on file 05/05/2023 Clothing Answer Date Recorded Have you been unable to get clothing when it was really needed? No 05/05/2023 Is your family able to get c lothes or diapers when needed? (Household - for ages 0-17 years) Not on file 05/05/2023 Personal Safety Answer Date Recorded Do you feel unsafe or have concerns for your saf ety? No 08/25/2023 Do you have concerns for you r family's safety? (Household - for ages 0-17 years) Not on file 08/25/2023 Utilities Answer Date Recorded Do you have trouble paying y our heating, water, or electric bill? No 08/25/2023 Is your family able to pay t he heat, water, or electric bill? (Household - for ages 0-17 years) Not on file 08/25/2023 Does your family have access to good internet? (Household - for ages 0-17 years) Not on file 08/25/2023 Employment Status Answer Date Recorded Are you unemployed or without regular income? No 05/05/2023 Does the household have a re lar source of income? (Household - for ages 0-17 years) Not on file 05/05/2023 Social Connections Answer Date Recorded How often do you feel lonely or isolated from th ose around you? Never 05/05/2023 Financial Resource Strain Answer Date R ecorded Do you have any trouble payi ng for your medications, or do you think you might in the future? No 05/05/2023 Does your family have troubl e paying for medicine? (Household - for ages 0-17 years) Not on file 05/05/2023 Transportation Needs Answer Date Record ed READ ONLY Do you have troubl e getting a ride to medical visits or work? Never True 08/25/2023 Does your family have a hard time getting a ride to doctors visits? (Household - for ages 0-17 years) Not on file 08/25/2023 Has lack of transportation k ept you from medical appointments, meetings, work, or from getting things needed for daily living? Check all that apply. (Adult - for ages 18 years and over) Not on file 08/25/2023 Do you (or your family) have trouble finding or paying for a ride (transportation)? (Household - for ages 0-17 years) Not on file 08/25/2023 Housing Stability Answer Date Recorded Do you currently live in a s helter or have no steady place to sleep at night? No 08/25/2023 READ ONLY Do you think you a re at risk of becoming homeless? No 08/25/2023 Does your family worry about paying for your home or becoming homeless? (Household - for ages 0-17 years) Not on file 0 08/25/2023 Are you homeless or worried that you might be in the future? (Adult - for ages 18 years and over) Not on file 4 Are you (or your family) rikki eless or worried that you might be in the future? (Household - for ages 0-17 years) Not on file Food Insecurity Answer Date Recorded Do you need food for this week? No 08/25/2023 Are you able to get enough f ood for your family? (Household - for ages 0-17 years) Not on file 08/25/2023 Does your family need food t his week? (Household - for ages 0-17 years) Not on file 08/25/2023 Do you always have enough fo od for your family? (Household - for ages 0-17 years) Not on file 08/25/2023 Estimated Date of Delivery Comme nts Yes 01/22/2024 Date entered edgar or to episode creation Sex and Gender Information Value Date Recorded [...] you have serious difficulty h earing? No 08/25/2023 Are you blind or do you have serious difficulty seeing, even when wearing glasses? No 08/25/2023 Do you have serious difficul ty walking or climbing stairs? (5 years old or older) No 08/25/2023 Do you have difficulty dress ing or bathing? (5 years old or older) No 08/25/2023 Because of a physical, menta l, or emotional condition, do you have difficulty doing errands alone such as visiting a doctor s office or shopping? (15 years old or older) No 08/25/19 Cognitive Status Response Date of Assessm ent Because of a physical, menta l, or emotional condition, do you have serious difficulty concentrating, remembering, or making decisions? (5 years old or older) No 08/25/2023 documented as of this encounter Miscellaneous Notes * Telephone Encounter - Karie Posey LPN - 12/03/2023 4:11 PM EDT Patient aware and verbalized understanding, will comply. * Telephone Encounter - Yamile Underwood MED ASSIST - 12/03/2023 4:07 PM EDT Called patient, left message to return call. Myg sent * Telephone Encounter - Dimas Doty DO - 12/03/2023 3:40 PM EDT Please call: Her culture suggests that MAcrobid should cover her UTI. She should finish this courseof abx. * Telephone Encounter - Analilia Ramey OSA - 12/03/2023 2:06 PM EDT Patient called in asking if someone can please call her to go over her results. She is 33 weeks and does not want to end up in the hospital or pre-tem labor. She said the last time this happened, she ended up needing IV antibiotics. She does have increased flank pain and burning with urination. * Telephone Encounter - Hellen Bird LPN - 12/03/2023 11:20 AM EDT Preliminary results in. Ordered by urgent care * Telephone Encounter - Sukumar Moore OSA - 12/03/2023 9:58 AM EDT Who is Requesting Test Results: PT Primary Care Provider : Dimas Doty DO Tests Results Requested : Urine culture Date of Test : Location of Test: urgent care [place] Ordering Provider: Ebenezer Patient has been made aware that the turnaround time for test results are typically as follows: Laboratory results = within 2-3 days ([facility]), 3-5 days (Non-[facility], ie. [facility]) Urine Cultures = within 2-3 days depending on growth within the culture Pathology results (biopsy results/PAP) = 1-2 weeks Radiology results = about 1 week Cologuard results = within 2 weeks from the shipment date COVID testing = about 24 hours documented in this encounter Plan of Treatment Upcoming Encounters Date Type Department Care Team (Late st Contact Info) Description 12/08/2023 2:00 PM EDT Office Visit [facility] [address] [place] [address] Dimas Doty, DO [address] [place] [id number] 02/16/2024 10:00 AM EDT Office Visit [facility] [address] [place] [address] Dimas Doty, DO [address] [place] [id number] Scheduled Procedures Name Priority Associated Diagnoses Date/Ti me COLONOSCOPY FLEXIBLE PROXIMA L DIAGNOSTIC Recall History of colonic polyps Health Maintenance Due Date Last Done Comments Pap Smear 04/09/2020 04/09/2017, 09/21/2014 Depression Monitoring 05/30/2020 05/30/2019 COVID-19 Vaccine ( season) 2023 04/03/2021, 06/26/2020, 06/05/2020 Cervical Cancer Screening 2023 HPV/Co-Test 2023 DTaP,Tdap,and Td Vaccines (11 - Td or Tdap) 01/06/2027 01/06/2017, 01/06/2017, 01/06/2017, Additional history exists Colonoscopy 2038 12/28/2019, 12/07, 03/17/2014, Additional history exists MENINGOCOCCAL (MENACTRA/MENVEO) Completed 01/08/2011, 01/08/2011, 12/15/2007, Additional history exists Hepatitis B Completed 02/08/2014, 12/06, 1993, Additional history exists RETIRED - COLONOSCOPY-EVERY 5 YRS AGES 18-100 Discontinued 12/28/2019, 12/28/2019, 03/17/2014, Additional history exists Influenza Vaccine (FLU shot) Completed 04/06/2023, 03/20/2023, 03/20/2023, Additional history exists GARDASIL-HPV IMMUNIZATION SERIES Aged Out No longer eligible based on patient's age to complete this topic Pneumococcal Vaccine: Pediatrics (0 to 5 Years) and At-Risk Patients (6 to 64 Years) Aged Out No longer eligible based on patient's age to complete this topic documented as of this encounter Medical Devices Not on filedocumented as of this encounter Advance Directives * Full Code (Latest Code Status on File) Date Activated Date Inactivated Comments 08/25/2023 6:21 PM 08/26/2023 7:43 PM This order r eflects the patients wishes and were consensually agreed upon. Question Answer Comments Discussion of Advance Directives occurred with: Patient * Full Code Date Activated Date Inactivated Comments 08/10/2023 6:03 PM 08/14/2023 7:15 PM This order ref lects the patients wishes and were consensually agreed upon. Question Answer Comments Discussion of Advance Directives occurred with: Patient * Full Code Date Activated Date Inactivated Comments 08/01/2023 3:33 AM 08/03/2023 5:34 PM This order r eflects the patients wishes and were consensually agreed upon. Question Answer Comments Discussion of Advance Direct robinson occurred with: Not Discussed due to patient's condition * Full Code Date Activated Date Inactivated Comments 10/04/2021 10:01 AM 10/05/2021 5:34 PM Question Answer Comments Discussion of Advance Directives occurred with: Not Discussed Does the patient have a Living Will? No Does the patient have Health Care Power of Attor gab? No * Full Code Date Activated Date Inactivated Comments 10/04/2021 6:12 AM 10/04/2021 10:00 AM This order reflects the patients wishes and were consensually agreed upon. Question Answer Comments Discussion of Advance Directives occurred with: Not Discussed Care Teams Wafer Substrate Tester Relationship Specialty Start Date End Date Dimas Doty DO [address] [place] [address] PCP - General Family Medicine 06/09/19 documented as of this encounter
--- OUTSIDE RECORDS SUMMARY | 2023-12-08 08:01 | External Medical Summary | Summary of Care ---
Author Name Unknown Organization [facility] Address [address] [place] [address] Phone [phone] Care Team Providers Care Flask Handler Name Role Phone Dimas Doty DO Primary Care Provider [phone] Reason for Visit * Reason Onset Date Comments Test Results 12/03/2023 Encounter Details Date Type Department Care Team (Late st Contact Info) Description 12/03/2023 Telephone Family Practice [facility] [address] [facility] [place] [address] Dimas Doty DO [address] [facility] [place] [address] Test Results Allergies Active Allergy Reactions Criticality [...] Menorrhagia with regular cycle 04/16/2021 [facility]EARCH OTHER*[id number] 01/24/2021 Gastroesophageal reflux disease with esophagitis 01/04/2019 [...] Test : Location of Test: urgent care [place] Ordering Provider: Ebenezer Patient has been made [...] Description 12/08/2023 2:00 PM EDT Office Visit [facility] [address] [place] [address] Dimas Doty, DO [address] [place] [id number] 02/16/2024 10:00 AM EDT Office Visit [facility] [address] [place] [address] Dimas Doty, DO [address] [place] [id number] Scheduled Procedures Name Priority Associated Diagnoses Date/Ti [...] Directives occurred with: Not Discussed Care Teams Flask Handler Relationship Specialty Start Date End Date Dimas Doty DO [address] [place] [address] PCP - General Family Medicine 06/09/19 documented as of this encounter
--- OUTSIDE RECORDS SUMMARY | 2023-12-08 08:01 | External Medical Summary | Summary of Care ---
Author Name Unknown Organization [facility] Address [address] [place] [address] Phone [phone] Care Team Providers Care Community Health Program Representative Name Role Phone OctavioDimas umana Primary Care Provider [phone] Reason for Visit * Reason Comments Urinary Tract Infection Symptoms Burning with urination and foul,cloudy urine x 2 daysLeft side discomfort as well Encounter Details Date Type Department Care Team (Latest Contact Info) Description 11/28/2023 2:20 PM EDT [facility], [facility] [address] [facility] [address] [place] [address] Lisa Sol PA-C [address] [facility] [address] [place] [phone] UTI symptoms*; Flank pain Allergies Active Allergy Reactions Criticality Noted Date [...] Sulfate 325 (65 Fe) MG Oral Tablet (Feosol)Indicat ions:History of gastric bypass,Other iron deficiency anemia 1 [...] Active Sertraline HCl 100 MG Oral Tablet (Zoloft)Indicat ions:Recurrent major depressive disorder, in full remission (HCC) TAKE 1 & 1/2 TABLETS BY MOUTH IN THE MORNING. 30 Tablet 11 11/26/2023 Active Ondansetron 4 MG Oral Tablet DisintegratingI ndications:Bila teral renal stones Place 1 Tablet on tongue every 8 hours as needed for Nausea. dissolve on tongue. 20 Tablet 5 08/28/2023 4 Discontinued Ondansetron HCl 4 MG Oral Tablet Take 1 Tablet by mouth in the morning and 1 Tablet at noon and 1 Tablet before bedtime. 20 Tablet 11/03/2023 4 Discontinued Promethazine HCl 25 MG Oral Tablet (Phenergan) Take 1 Tablet by mouth every 6 hours as needed for Nausea. or vomiting 12 Tablet 11/19/2023 4 Discontinued oxyCODONE-Aceta minophen 5-325 MG Oral Tablet (Percocet)Indic ations:Kidney stone Take 1 Tablet by mouth every 8 hours as needed for Pain, Severe. Space out to try to decrease dose with . 20 Tablet 11/23/2023 4 Discontinued(Refi ll) documented as of this encounter (statuses as [...] Menorrhagia with regular cycle 04/16/2021 [facility] OTHER*[id number] 01/24/2021 Gastroesophageal reflux disease with esophagitis 01/04/2019 [...] Date Smoking Tobacco: Never Smokeless Tobacco: Never Tobacco Cessation:Counseling Given: Not Answered Alcohol Use Standard Drinks/Week Comments No 0 [...] on file documented as of this encounter Last Filed Vital Signs Vital Sign Reading Time Taken Comments Blood Pressure 118/88 11/28/2023 12:14 PM EDT Pulse 119 11/28/2023 12:14 PM EDT Temperature 36.7 C (98.1 F) 11/28/2023 12:14 PM E DT Respiratory Rate 18 11/28/2023 12:14 PM EDT Oxygen Saturation 100% 11/28/2023 12:14 PM EDT Inhaled Oxygen Concentration - - Weight 101.6 kg (224 lb) 11/28/2023 12:14 PM EDT Height 167.6 cm (5' 6") 11/28/2023 12:14 PM EDT Body Mass Index 36.15 11/28/2023 12:14 PM EDT documented in this encounter Functional Status Functional Status Response [...] No 08/25/2023 documented as of this encounter Patient Instructions * Patient Instructions* Lisa Sol PA-C - 11/28/2023 1:11 PM EDT Go straight to [facility] for further evaluation documented in this encounter Progress Notes * Lisa Sol PA-C - 11/28/2023 12:33 PM EDT Images from the original note were not included. History of Present Illness Chief Complaint Patient presents with Urinary Tract Infection Symptoms Burning with urination and foul,cloudy urine x 2 days Left side discomfort as well 28 y/o female presents with UTI symptoms x 2 days. She has had dysuria, foul smelling and cloudy urination. She has had hematuria and has known kidney stones. Has tried Tylenol OTC. She has had some left side discomfort. She is currently , 32 weeks. She was seen in the ER on 11/19/23 for left flank pain. She saw her anesthesia director at [facility] yesterday. She had an iron infusion yesterday and passed out twice during it. She has been getting [place] [employer] contractions since yesterday, her anesthesia director told her it was likely because of the heat. She has had pelvic pain and pressure since yesterday. No vaginal bleeding or discharge. Pt states that at the beginning of her she had to be ad mitted in [place] for a kidney infection with drug resistant bacteria and she had a picc line at that time. Denies fever/chills, CP, N/V, or weakness. Past Medical History: Diagnosis Date Abdominal pain 08/01/2023 Biliary colic 08/01/2023 Calculus of kidney 07/07/2016 Cholelithiasis 08/01/2023 Crampy pain associated with menses 08/01/2023 Dysmenorrhea Gastroesophageal reflux disease with esophagitis 01/04/2019 Gastrointestinal hemorrhage as a teenager - r/t perf diverticulosis Irritable bowel syndrome with both constipation and diarrhea 01/04/2019 Personal history of colonic polyps 03/17/2014 hyperplastic x 2 PONV (postoperative nausea and vomiting) Recurrent major depressive disorder, in full remission ([facility]) 01/04/2019 Current Medication List: Sertraline HCl 100 MG Oral Tablet (Zoloft) Cyclobenzaprine HCl 10 MG Oral Tablet (Flexeril) oxyCODONE-Acetaminophen 5-325 MG Oral Tablet (Percocet) Promethazine HCl 25 MG Oral Tablet (Phenergan) busPIRone HCl 10 MG Oral Tablet (Buspar) Omeprazole 20 MG Oral Capsule Delayed Release (PriLOSEC) Ondansetron HCl 4 MG Oral Tablet Tamsulosin HCl 0.4 MG Oral Capsule (Flomax) Ferrous Sulfate 325 (65 Fe) MG Oral Tablet (Feosol) Ondansetron 4 MG Oral Tablet Disintegrating [facility] Gummy 0.4-113.5 MG Oral Tablet Chewable Acetaminophen 325 MG Oral Capsule Review of patient's allergies indicates: Allergen Reactions Sulfamethoxazole Hives Trimethoprim Hives Compazine [Prochlorperazine] Psych complications Probably dystonic reaction. The patient does tolerate Phenergan Morphine Hives Pt feels the rash may have been from tape at the IV site. Review of Systems Constitutional: Negative for chills and fever. HENT: Negative for congestion and rhinorrhea. Eyes: Negative for visual disturbance. Respiratory: Negative for shortness of breath. Cardiovascular: Negative for chest pain. Gastrointestinal: Negative for abdominal pain, diarrhea, nausea and vomiting. Genitourinary: Positive for dysuria and hematuria. Musculoskeletal: Positive for back pain. Negative for gait problem. Skin: Negative for rash. Neurological: Positive for syncope (x 2 during iron infusion yesterday per pt) and light-headedness. Negative for weakness and headaches. Psychiatric/Behavioral: Negative for confusion. Physical Exam BP 118/88 | Pulse 119 | Temp 36.7 C (98.1 F) (Tympanic) | Resp 18 | Ht 1.676 m (5' 6") | Wt 101.6 kg (224 lb) | LMP 04/17/2023 (Approximate) Comment: due date 01/22/24 | SpO2 100% | BMI 36.15 kg/m | BSA 2.17 m Physical Exam Vitals and nursing note reviewed. Constitutional: Appearance: Normal appearance. She is not diaphoretic. Comments: Mildly anxious HENT: Head: Normocephalic and atraumatic. Mouth/Throat: Mouth: Mucous membranes are moist. Pharynx: Oropharynx is clear. Eyes: Conjunctiva/sclera: Conjunctivae normal. Pupils: Pupils are equal, round, and reactive to light. Cardiovascular: Rate and Rhythm: Regular rhythm. Tachycardia present. Pulmonary: Effort: Pulmonary effort is normal. No respiratory distress. Breath sounds: Normal breath sounds. No wheezing, rhonchi or rales. Abdominal: Palpations: Abdomen is soft. Tenderness: There is no abdominal tenderness. There is left CVA tenderness (significant). There is no guarding. Comments: Distended c/w Musculoskeletal: General: Normal range of motion. Cervical back: Normal range of motion. Skin: General: Skin is warm and dry. Neurological: General: No focal deficit present. Mental Status: She is alert and oriented to person, place, and time. Psychiatric: Mood and Affect: Mood normal. Behavior: Behavior normal. I have reviewed the following results: UA large esterase, positive nitrites, trace blood, protein 30, urine culture in process Assessment and Plan Reviewed records, renal US done earlier this month showed RIGHT sided kidney stones. Urine positivehere, pt has LEFT flank pain, concern for pyelonephritis in . Pt is tachycardic. Has had prior drug resistant infections and admissions for IV abxs. Will send to [facility] for further evaluation. Was the System Triage Office contacted? Yes, [facility] Disposition: ED UTI symptoms - URINALYSIS, POINT OF CARE (ENTER/EDIT) - CULTURE, URINE, QUANTITATIVE; Future - CULTURE, URINE, QUANTITATIVE Flank pain Wrap-Up Go straight to [facility] for further evaluation Time: I spent a total of 20-29 minutes (exact time 25 mins) on the date of service in preparation, delivery, and documentation of the care provided to Zan Snell excluding any time spent in the performance of separately billed services. documented in this encounter Nursing Notes * Osiris Freeman LPN - 11/28/2023 12:17 PM EDT Zan Snell is a 28 year old female who presents to walk-in clinic today complaining of Chief Complaint Patient presents with Urinary Tract Infection Symptoms Burning with urination and foul,cloudy urine x 2 days Left side discomfort as well Tried: tylenol Pt accompanied by: spouse documented in this encounter Plan of Treatment Upcoming Encounters Date Type Department Care Team (Late st Contact Info) Description 12/08/2023 2:00 PM EDT Office Visit [facility] [address] [address] Dimas Doty, DO [address] [place] [id number] 02/16/2024 10:00 AM EDT Office Visit [facility] [address] [place] [place] [address] [id number] Dimas Doty, DO [address] [place] [id number] Scheduled Procedures Name Priority Associated Diagnoses Date/Ti [...] Not on filedocumented as of this encounter Procedures Procedure Name Priority Date/Time Associated Diagnosis Comments CULTURE, URINE, QUANTITATIVE Routine 11/28/2023 12:24 PM EDT UTI symptoms URINALYSIS, POINT OF CARE (ENTER/EDIT) Routine 11/28/2023 12:20 PM EDT UTI symptoms documented in this encounter Results * (ABNORMAL) CULTURE, URINE, QUANTITATIVE (11/28/2023 12:24 PM EDT) Culture Growth >100,000 colonies/mL Escherichia coli(A) MICROBROTH DILUTIONS 12/03/2023 3:01 PM EDT LAB[facility] Culture Growth >100,000 colonies/mL Gardnerella vaginalis(A) MICROBROTH DILUTIONS 12/03/2023 3:01 PM EDT [place] [facility] [place] Urine specimen obtained by clean catch procedure / Unknown Non-blood Collection / Unknown 11/28/2023 12:24 PM EDT 11/28/2023 12:24 PM EDT Narrative [place] [facility] [place] 12/03/2023 3:01 PM EDT <10,000 colonies/ml mixed normal jolynn Organism Antibiotic Method Susceptibility Escherichia coli Ampicillin MICROBROTH DILUTIONS 4: Susceptible Escherichia coli Cefazolin MICROBROTH DILUTIONS <=4: Susceptible Escherichia coli Cefepime MICROBROTH DILUTIONS <=1: Susceptible Escherichia coli Ceftriaxone MICROBROTH DILUTIONS <=1: Susceptible Escherichia coli Ciprofloxacin MICROBROTH DILUTIONS <=0.25: Susceptible Comment:Due to mariella us side effects, the FDA has advised against using Ciprofloxacin to treat uncomplicated UTIs and respiratory tract infections unless there are no alternative treatment options. Escherichia coli Gentamicin MICROBROTH DILUTIONS <=1: Susceptible Escherichia coli Nitrofurantoin MICROBROTH DILUTIONS <=16: Susceptible Escherichia coli Piperacillin Tazobactam MICROBROTH DI LUTIONS <=4: Susceptible Escherichia coli Trimeth/Sulfamethoxazole MICROBROTH D ILUTIONS <=20: Susceptible Lisa Sol PA-C LAB MICRO - GENERAL ORDERABLES [place] [facility] [place] [address] [place] [address] * (ABNORMAL) URINALYSIS, POINT OF CARE (ENTER/EDIT) (11/28/2023 12:20 PM EDT) Color, Urine Yellow Yellow or Light Yellow Clarity, Urine Cloudy Clear Glucose, Urine Negative Negative mg/dL Bilirubin, Urine Negative Negative Ketone, Urine Negative Negative mg/dL Specific [place], Urine 1.025 1.003 - 1.030 Blood, Urine Trace-intact Negative pH, Urine 6.5 5.0 - 7.5 units Protein, Urine 30 Negative mg/dL Urobilinogen, Urine 1.0 0.2 - 1.0 mg/dL Nitrite, Urine Positive Negative Esterase, Urine Large Negative Urine 11/28/2023 12:2 0 PM EDT Lisa Sol PA-C LAB POINT O F CARE TEST ENTER/EDIT ORDERABLES documented in this encounter Visit Diagnoses Diagnosis UTI symptoms- Primary Other symptoms involving urinary system Flank pain Abdominal pain, unspecified site documented in this encounter Advance Directives * Full Code [...] Directives occurred with: Not Discussed Care Teams Community Health Program Representative Relationship Specialty Start Date End Date Dimas Doty DO [address] [place] [address] PCP - General Family Medicine 06/09/19 documented as of this encounter
--- OUTSIDE RECORDS SUMMARY | 2023-12-08 08:01 | External Medical Summary | Summary of Care ---
Author Name Unknown Organization [facility] Address [address] [place] [address] Phone [phone] Care Team Providers Care Lumber Tying Machine Operator Name Role Phone Dimas Doty Primary Care Provider [phone] Reason for Visit * Reason Onset Date Comments Test Results 12/03/2023 Encounter Details Date Type Department Care Team (Late st Contact Info) Description 12/03/2023 Telephone [facility] Jared Moser [address] [facility] [address] [place] [address] Lisa Sol PA-C [address] [facility] [address] [place] [phone] Test Results Allergies Active Allergy Reactions Criticality [...] Menorrhagia with regular cycle 04/16/2021 [facility] OTHER*[id number] 01/24/2021 Gastroesophageal reflux disease with esophagitis 01/04/2019 [...] Inj 02/08/2014 TDAP (age 10 and older)(Boostrix) 01/06/2017,06/2016,03/30/2015 Varicella Vaccine (Chicken Pox) 12/27/2008,06/12 documented as [...] 05/05/2023 Does the household have a re gular source of income? (Household - for ages [...] 18 years and over) Not on file Are you (or your family) rikki eless [...] encounter Miscellaneous Notes * Telephone Encounter - Lisa Sol PA-C - 12/03/2023 6:46 PM EDT Pt's urine culture was positive for UTI, sensitive to Macrobid which she was placed on when sent tot ER and seen by field tech. Her doctor had reviewed records and counseled to continue as prescribed. documented in this encounter Plan of Treatment Upcoming Encounters Date Type Department Care Team (Late st Contact Info) Description 12/08/2023 2:00 PM EDT Office Visit [facility] [address] [address] Dimas Doty, DO [address] [place] [id number] 02/16/2024 10:00 AM EDT Office Visit [facility] [address] [place] [address] Dimas Doty, DO [address] [place] [address] [id number] Scheduled Procedures Name Priority Associated Diagnoses Date/Ti [...] Directives occurred with: Not Discussed Care Teams Lumber Tying Machine Operator Relationship Specialty Start Date End Date Dimas Doty DO [address] [place] [address] PCP - General Family Medicine 06/09/19 documented as of this encounter
--- OUTSIDE RECORDS SUMMARY | 2023-12-08 08:01 | External Medical Summary | Summary of Care ---
Author Name Unknown Organization [facility] Address [address] [place] [address] Phone [phone] Care Team Providers Care Jacker Name Role Phone Levar Ordonez DO Primary Care Provider [phone] Reason for Referral * Medication Prior Authorization - Closed Specialty Diagnoses / Procedures Referred By Rosendo trujillo Referred To Contact Diagnoses Kidney stone Levar Ordonez DO [address] [place] [address] Referral ID Status Reason Start Date Expiration Date Visits Re quested Visits Authorized [id number] Closed [phone] Reason for Visit * Reason Onset Date Comments Medication Refill 12/04/2023 Encounter Details Date Type Department Care Team (Late st Contact Info) Description 12/04/2023 Refill Family Practice [facility] [address] [place] [address] Levar Ordonez DO [address] [place] [address] Kidney stone Allergies Active Allergy Reactions Criticality Noted Date Comments Prochlorperazine Psych complications 06/12/2020 Probably dystonic reaction. The patient does tolerate Phenergan Morphine Hives Low 03/20/2019 Pt feels the rash may have been from tape at the IV site. Sulfamethoxazole Hives High 03/03/2021 Trimethoprim Hives High 05/02/2018 documented as of this encounter (statuses as of 12/04/2023) Medications Medication Sig Dispensed Refills Start Date End Date Status Acetaminophen 325 MG Oral Capsule Take 325 mg by mouth every 6 hours as needed for Pain, Mild. 07/15/2023 Active [facility] Gummy 0.4-113.5 MG Oral Tablet Chewable Take 1 Tablet by mouth in the morning. Active Ferrous Sulfate 325 (65 Fe) MG Oral Tablet (Feosol)Indications: History of gastric bypass,Other iron deficiency anemia 1 daily 09/02/2023 Active Tamsulosin HCl 0.4 MG Oral Capsule (Flomax) Take 1 Capsule by mouth in the morning. 28 Capsule 11/03/2023 Active busPIRone HCl 10 MG Oral Tablet (Buspar) Take 1 Tablet by mouth in the morning. Active Omeprazole 20 MG Oral Capsule Delayed Release (PriLOSEC) Take 1 Capsule by mouth in the morning. Active Sertraline HCl 100 MG Oral Tablet (Zoloft)Indications: Recurrent major depressive disorder, in full remission (HCC) TAKE 1 & 1/2 TABLETS BY MOUTH IN THE MORNING. 30 Tablet 11 11/26/2023 Active Calcium Carbonate Antacid 500 MG Oral Tablet Chewable (Tums) Take 2 Tablets by mouth daily as needed for Heartburn. Active Ondansetron 4 MG Oral Tablet Disintegrating (Zofran) Place 1 Tablet on tongue every 8 hours as needed for Nausea. 20 Tablet 11/28/2023 Active Ondansetron 4 MG Oral Tablet DisintegratingIndica tions:Bilateral renal stones Place 1 Tablet on tongue every 8 hours as needed for Nausea. dissolve on tongue. 20 Tablet 11/28/2023 Active oxyCODONE HCl 5 MG Oral Tablet (Oxy IR) Take 1 Tablet by mouth every 8 hours as needed for Pain, Severe. 5 Tablet 11/29/2023 Active oxyCODONE-Acetaminop hen 5-325 MG Oral Tablet (Percocet)Indication s:Kidney stone Take 1 Tablet by mouth every 8 hours as needed for Pain, Severe. Space out to try to decrease dose with . 20 Tablet 12/04/2023 Active Cyclobenzaprine HCl 10 MG Oral Tablet (Flexeril) Take 1 Tablet by mouth every 6 hours as needed for Pain, Moderate. 10 Tablet 12/04/2023 Active Cyclobenzaprine HCl 10 MG Oral Tablet (Flexeril) Take 1 Tablet by mouth every 6 hours as needed for Pain, Moderate. 10 Tablet 11/23/2023 4 Discontinue d(Refill) oxyCODONE-Acetaminop hen 5-325 MG Oral Tablet (Percocet)Indication s:Kidney stone Take 1 Tablet by mouth every 8 hours as needed for Pain, Severe. Space out to try to decrease dose with . 20 Tablet 11/30/2023 4 Discontinue d(Refill) documented as of this encounter (statuses as of 12/04/2023) Active Problems Problem Noted Date Diagnosed Date [...] Cyst of ovary 08/01/2023 Intestinal postoperative nonabsorption 3 Other dietary vitamin B12 deficiency anemia 10/06 History of gastric bypass 02/11/2022 Obesity, Class III, BMI 40-49.9 (morbid obesity) 10/05/2021 NAFLD (nonalcoholic fatty liver disease) 022 Menorrhagia with regular cycle 04/16/2021 [facility] OTHER*[id number] 01/24/2021 Gastroesophageal reflux disease with esophagitis 01/04/2019 [...] as of this encounter (statuses as of 12/04/2023) Resolved Problems Problem Noted Date Diagnosed Date [...] as of this encounter (statuses as of 12/04/2023) Immunizations Name Administration Dates Next Due COVID-19 mRNA, LNP-s, No Pre serve, 2-Dose Series ([employer]) 04/03/2021,06/26/2020,06/05/2020 DTaP Dipth/Tet/Acell Pertussis (Infanrix), Peds 01/06/2017,09/28/1997,09/18/1994,08/15,1993,1993 [...] (15 years old or older) No 08/25/19 24 Cognitive Status Response Date of Assessm ent Because of a physical, menta l, or emotional condition, do you have serious difficulty concentrating, remembering, or making decisions? (5 years old or older) No 08/25/2023 documented as of this encounter Miscellaneous Notes * Telephone Encounter - Levar Ordonez DO - 12/04/2023 8:22 AM EDTSigned Prescriptions: Disp Refills oxyCODONE-Acetaminophen 5-325 MG Oral Tabl*20 Tab*0 Sig: Take 1 Tablet by mouth every 8 hours as needed for Pain, Severe. Space out to try to decrease dose with . Authorizing Provider: LEVAR ORDONEZ Cyclobenzaprine HCl 10 MG Oral Tablet (Fle*10 Tab*0 Sig: Take 1 Tablet by mouth every 6 hours as needed for Pain, Moderate. Authorizing Provider: LEVAR ORDONEZ * Telephone Encounter - Rain Corcoran [facility] - 12/04/2023 8:12 AM EDT Pending Prescriptions: Disp Refills oxyCODONE-Acetaminophen 5-325 MG Oral Tabl*20 Tab*0 Sig: Take 1 Tablet by mouth every 8 hours as needed for Pain, Severe. Space out to try to decrease dose with . Cyclobenzaprine HCl 10 MG Oral Tablet (Fle*10 Tab*0 Sig: Take 1 Tablet by mouth every 6 hours as needed for Pain, Moderate. * Telephone Encounter - Rain Corcoran [facility] - 12/04/2023 8:11 AM EDT I have reviewed the patients controlled substance dispensing history in the Prescription Drug Monitoring Program in compliance with the [facility] regulations before prescribing a controlled substance. PDMP checked on 12/04/2023. Pending Prescriptions: Disp Refills oxyCODONE-Acetaminophen 5-325 MG Oral Tab*20 Tab*0 Sig: Take 1 Tablet by mouth every 8 hours as needed for Pain, Severe. Space out to try to decrease dose with . Last Visit: 12/30/2022 (in office), 08/07/2023 (telemedicine) Next Visit: 12/08/2023 Date medication was last filled: 11/29 Date medication is due for refill: 12/05 Pharmacy: [id number] Is this request for a controlled substance? Yes and Urine Drug Screen Not completed Toxicology results: No results found. However, due to the size of the patient record, not all encounters were searched.Please check Results Review for a complete set of results. Please approve if appropriate. Thank you, Rain Corcoran, PharmD. Clinical Pharmacist [facility] ([facility]) 12/04/2023, 8:11 AM * Telephone Encounter - Cecilia Lr CPhT - 12/04/2023 8:09 AM EDT Pt stating she will be out of medication this weekend. Did you pend patient's preferred pharmacy and medication before forwarding?yes Pharmacy: [id number] [address] Pending Prescriptions: Disp Refills oxyCODONE-Acetaminophen 5-325 MG Oral Tab*20 Tab*0 Sig: Take 1 Tablet by mouth every 8 hours as needed for Pain, Severe. Space out to try to decrease dose with . Cyclobenzaprine HCl 10 MG Oral Tablet (Fl*10 Tab*0 Sig: Take 1 Tablet by mouth every 6 hours as needed for Pain, Moderate. Last Visit: 12/30/2022 (in office), 08/07/2023 (telemedicine) Next Visit: 12/08/2023 If no future appointments scheduled, and last appointment is greater than a year ago, please schedule patient for a follow-up appointment Last date the medication was ordered: 11/23/2023, 11/30/2023 Is this request for a controlled substance?Yes, What was the last refill date 11/30/2023 w/ [email or web address] and dosage 5-325 MG and Urine Drug Screen Not completed Urine Drug Screen:No results found. However, due to the size of the patient record, not all encounters were searched. Please check Results Review for a complete set of results. Patient Phone Numbers Labs: Lab Results Component Value Date/Time CREAT 0.6 11/19/2023 11:06 PM CREAT 0.9 06/22/2020 03:57 PM POTASSIUM 4.1 11/19/2023 11:06 PM POTASSIUM 4.9 06/22/2020 03:57 PM TSH 2.42 02/13/2021 07:39 AM TSH 1.20 02/22/2020 02:35 PM LDLCALC 89 10/15/2022 05:20 PM LDLCALC 93 09/11/2010 08:05 AM ALT 12 11/19/2023 11:06 PM ALT 13 06/12/2020 03:25 AM HGBA1C 5.4 10/15/2022 05:20 PM HGBA1C 5.4% 05/25/2019 12:00 AM HGBA1C 5.3 01/11/2015 04:24 PM documented in this encounter Plan of Treatment Upcoming Encounters Date Type Department Care Team (Late st Contact Info) Description 12/08/2023 2:00 PM EDT Office Visit Family Practice [facility] [address] [place], [place] [address] Levar Ordonez, DO [address] [place] [address] 02/16/2024 10:00 AM EDT Office Visit Family Practice [facility] [place] [address] [place] [address] Levar Ordonez, DO [address] [place] [address] Scheduled Procedures Name Priority Associated Diagnoses Date/Ti [...] as of this encounter Visit Diagnoses Diagnosis Kidney stone Calculus of kidney documented in this encounter Advance Directives * [...] Directives occurred with: Not Discussed Care Teams Jacker Relationship Specialty Start Date End Date Levar Ordonez DO [address] [place] [address] PCP - General Family Medicine 06/09/19 documented as of this encounter
--- OUTSIDE RECORDS SUMMARY | 2023-12-08 08:02 | External Medical Summary ---
Author Name Unknown Address Unknown Organization [id number]:[facility] - [address] [facility] [address] Laboratory Report Ordering Provider Test Date Status BRITTON,GLECONNOR 11/28/2023 12:24:14 Final <10,000 colonies/ml mixed no rmal jolynn Observation Date Value Abnormality Reference (Units ) Status Bacteria identified in Specimen by Culture 11/28/2023 12:24:14 [id number]^ESCHE RICHIA COLI Abnormal Final >100,000 colonies/mL Escheri leydi coli Bacteria identified in Specimen by Culture 11/28/2023 12:24:14 [id number]^GARDNERELLA VAGINALIS Abnormal Final >100,000 colonies/mL Rivera twan vaginalis Performing Location [facility] - [address] [facility] [address] Ordering Provider Test Date Status BEVERLY JARQUIN 11/28/2023 12:24:14 Final Observation Date Value Abnormality Reference (Units ) Status Ampicillin 11/28/2023 12:24:14 4 Susceptible Final Cefazolin 11/28/2023 12:24:14 <=4 Susceptible Final Cefepime susceptibility 11/28/2023 12:24:14 <=1 Susceptible Final Ceftriaxone suceptibility 11/28/2023 12:24:14 <=1 Susceptible Final Ciprofloxacin 11/28/2023 12:24:14 <=0.25 Susceptible Final Due to serious side effects, the FDA has advised against using Ciprofloxacin to treat uncomplicated UTIs and respiratory tract infections unless there are no alternative treatment options. Gentamicin susceptibility 11/28/2023 12:24:14 <=1 Susc eptible Final Nitrofurantoin susceptibility 11/28/2023 12:24:14 <=16 Susceptible Final Piperacillin + Tazobactamsusceptibility 11/28/2023 12:24:14 <=4 Susceptible Final TMP-SMZ susceptibility 11/28/2023 12:24:14 <=20 Suscept ible Final Test: Culture, Urine, Quanti tative
Specimen Source: Urine, Clean Catch
Specimen Type: Urine
Specimen Date: 11/28/2023 1224
Result Date: 12/03/2023 1501
Result Status: Final result
Abnormal: Yes
Resulting Lab: [facility]
[address]
[place] [address]

CULTURE

>100,000 colonies/mL Escherichia coli (Abnormal)

>100,000 colonies/mL Gardnerella vaginalis (Abnormal)

<10,000 colonies/ml mixed normal jolynn

SUSCEPTIBILITY

Escherichia coli
METHOD MICROBROTH
DILUTIONS

AMPICILLIN 4 Susceptible
CEFAZOLIN <=4 Susceptible
CEFEPIME <=1 Susceptible
CEFTRIAXONE <=1 Susceptible
CIPROFLOXACIN <=0.25 Susceptible
[1]
GENTAMICIN <=1 Susceptible
NITROFURANTOIN <=16 Susceptible
PIPERACILLIN TAZOBACTAM <=4 Susceptible
TRIMETH/SULFAMETHOXAZOLE <=20 Susceptible

[1] Due to serious side effects, the FDA has advised against using
Ciprofloxacin to treat uncomplicated UTIs and respiratory tract infections
unless there are no alternative treatment options.

null Performing Location [facility] - [address] [facility] [address]
--- OUTSIDE RECORDS SUMMARY | 2023-12-08 08:02 | External Medical Summary | Summary of Care ---
Author Name Unknown Organization [facility] Address [address] [place] [address] Phone [phone] Care Team Providers Care Geology Professor Name Role Phone OctavioDimas umana Primary Care Provider [phone] Reason for Visit * Reason Comments Urinary Tract Infection Symptoms Burning with urination and foul,cloudy urine x 2 daysLeft side discomfort as well Encounter Details Date Type Department Care Team (Latest Contact Info) Description 11/28/2023 2:20 PM EDT [facility], Jared [address] [facility] [address] [place] [address] Lisa Sol PA-C [address] [facility] [address] [place] [phone] UTI symptoms*; Flank pain Allergies Active Allergy Reactions Criticality Noted Date Comments Prochlorperazine Psych complications 06/12/2020 Probably dystonic reaction. The patient does tolerate Phenergan Morphine Hives Low 03/20/2019 Pt feels the rash may have been from tape at the IV site. Sulfamethoxazole Hives High 03/03/2021 Trimethoprim Hives High 05/02/2018 documented as of this encounter (statuses as of 11/28/2023) Medications Medication Sig Dispensed Refills Start Date End Date Status Acetaminophen 325 MG Oral Capsule Take 325 mg by mouth every 6 hours as needed for Pain, Mild. 07/15/2023 Active [facility] Gummy 0.4-113.5 MG Oral Tablet Chewable Take 1 Tablet by mouth in the morning. Active Ondansetron 4 MG Oral Tablet DisintegratingIndica tions:Bilateral renal stones Place 1 Tablet on tongue every 8 hours as needed for Nausea. dissolve on tongue. 20 Tablet 5 08/28/2023 Active Ferrous Sulfate 325 (65 Fe) MG Oral Tablet (Feosol)Indications: History of gastric bypass,Other iron deficiency anemia 1 daily 09/02/2023 Active Tamsulosin HCl 0.4 MG Oral Capsule (Flomax) Take 1 Capsule by mouth in the morning. 28 Capsule 11/03/2023 Active Ondansetron HCl 4 MG Oral Tablet Take 1 Tablet by mouth in the morning and 1 Tablet at noon and 1 Tablet before bedtime. 20 Tablet 11/03/2023 Active busPIRone HCl 10 MG Oral Tablet (Buspar) Take 1 Tablet by mouth in the morning. Active Omeprazole 20 MG Oral Capsule Delayed Release (PriLOSEC) Take 1 Capsule by mouth in the morning. Active Promethazine HCl 25 MG Oral Tablet (Phenergan) Take 1 Tablet by mouth every 6 hours as needed for Nausea. or vomiting 12 Tablet 11/19/2023 Active Cyclobenzaprine HCl 10 MG Oral Tablet (Flexeril) Take 1 Tablet by mouth every 6 hours as needed for Pain, Moderate. 10 Tablet 11/23/2023 Active oxyCODONE-Acetaminop hen 5-325 MG Oral Tablet (Percocet)Indication s:Kidney stone Take 1 Tablet by mouth every 8 hours as needed for Pain, Severe. Space out to try to decrease dose with . 20 Tablet 11/23/2023 Active Sertraline HCl 100 MG Oral Tablet (Zoloft)Indications: Recurrent major depressive disorder, in full remission (HCC) TAKE 1 & 1/2 TABLETS BY MOUTH IN THE MORNING. 30 Tablet 11 11/26/2023 Active documented as of this encounter (statuses as of 11/28/2023) Active Problems Problem Noted Date Diagnosed Date Irregular uterine contractions 11/03/2023 Hyperemesis affecting , [...] Menorrhagia with regular cycle 04/16/2021 [facility] OTHER*[id number] 01/24/2021 Gastroesophageal reflux disease with esophagitis 01/04/2019 [...] as of this encounter (statuses as of 11/28/2023) Resolved Problems Problem Noted Date Diagnosed Date [...] as of this encounter (statuses as of 11/28/2023) Immunizations Name Administration Dates Next Due COVID-19 [...] 11/28/2023 1:11 PM EDT Go straight to [facility] for further evaluation documented in this encounter [...] for left flank pain. She saw her director of assessment at [facility] yesterday. She had an iron infusion yesterday and passed out twice during it. She has been getting Elliott Hick's contractions since yesterday, her director of assessment told her it was likely because of the heat. She has had pelvic pain and pressure since yesterday. No vaginal bleeding or discharge. Pt states that at the beginning of her she had to be ad mitted in [place] for a kidney infection with drug resistant [...] Recurrent major depressive disorder, in full remission ([facility]) 01/04/2019 Current Medication List: Sertraline HCl 100 [...] admissions for IV abxs. Will send to [facility] for further evaluation. Was the System Triage Office contacted? Yes, [facility] Disposition: ED UTI symptoms - URINALYSIS, POINT OF CARE (ENTER/EDIT) - CULTURE, URINE, QUANTITATIVE; Future - CULTURE, URINE, QUANTITATIVE Flank pain Wrap-Up Go straight to [facility] for further evaluation Time: I spent [...] Care Team (Late st Contact Info) Description 02/16/2024 10:00 AM EDT Office Visit Family Practice [facility] [address] [facility] [place] [address] Dimas Doty, [address] [facility] [place] [address] Pending Results Name Type Priority Associated Diagnoses Date /Time CULTURE, URINE, QUANTITATIVE Lab Routine UTI symptoms 11/28/2023 12:24 PM EDT Scheduled Orders Name Type Priority Associated Diagnoses Orde r Schedule CULTURE, URINE, QUANTITATIVE Lab Routine UTI symptoms Expected: 11/28/2023, Expires: 11/27/2024 Scheduled Procedures Name Priority Associated Diagnoses Date/Ti [...] Procedure Name Priority Date/Time Associated Diagnosis Comments URINALYSIS, POINT OF CARE (ENTER/EDIT) Routine 11/28/2023 12:20 PM EDT UTI symptoms documented in this encounter Results * (ABNORMAL) URINALYSIS, POINT OF CARE (ENTER/EDIT) (11/28/2023 12:20 PM EDT) Color, Urine Yellow Yellow or Light Yellow Clarity, Urine Cloudy Clear Glucose, Urine Negative Negative mg/dL Bilirubin, Urine Negative Negative Ketone, Urine Negative Negative mg/dL Specific [place], Urine 1.025 1.003 - 1.030 Blood, Urine [...] 6:03 PM 08/14/2023 7:15 PM This order re flects the patients wishes and were consensually agreed [...] Directives occurred with: Not Discussed Care Teams Geology Professor Relationship Specialty Start Date End Date Dimas Doty [place] [facility] [place] [address] PCP - General Family Medicine 06/09/19 documented as of this encounter
--- OUTSIDE RECORDS SUMMARY | 2023-12-08 08:02 | External Medical Summary | Summary of Care ---
Author Name Unknown Organization [facility] Address [address] [place] [address] Phone [phone] Care Team Providers Care Instrument Room Technician Name Role Phone OctavioDimas umana Primary Care Provider [phone] Reason for Visit * Reason Comments Urinary Tract Infection Symptoms * Auth/Cert Specialty Diagnoses / Procedures Referred By Rosendo t Referred To Contact [facility] [address] [place] [address] Phone: [phone] [facility] [address] [place] [address] Referral ID Status Reason Start Date Expiration Date Visits Re quested Visits Authorized [id number] Encounter Details Date Type Department Care Team (Late st Contact Info) Description 11/28/2023 2:21 PM EDT - 11/28/2023 2:47 PM EDT Emergency [facility] Emergency Department ([facility]) [address] [place] [address] Keven Rojas MD [address] [place] [address] Abdominal cramps (Primary Dx); Third trimester Discharge Disposition: Home - Self Care Allergies Active Allergy Reactions Criticality Noted Date Comments Prochlorperazine Psych complications 06/12/2020 Probably dystonic reaction. The patient does tolerate Phenergan Morphine Hives Low 03/20/2019 Pt feels the rash may have been from tape at the IV site. Sulfamethoxazole Hives High 03/03/2021 Trimethoprim Hives High 05/02/2018 documented as of this encounter (statuses as of 11/29/2023) Medications Medication Sig Dispensed Refills Start Date End Date Status Acetaminophen 325 MG Oral Capsule Take 325 mg by mouth every 6 hours as needed for Pain, Mild. 07/15/2023 Active [facility] Gummy 0.4-113.5 MG Oral Tablet Chewable Take 1 Tablet by mouth in the morning. Active Ferrous Sulfate 325 (65 Fe) MG Oral Tablet (Feosol)Indicati ons:History of gastric bypass,Other iron deficiency anemia 1 [...] for Pain, Moderate. 10 Tablet 11/23/2023 Active oxyCODONE-Acetam inophen 5-325 MG Oral Tablet (Percocet)Indica tions:Kidney stone Take 1 Tablet by mouth every 8 hours as needed for Pain, Severe. Space out to try to decrease dose with . 20 Tablet 11/23/2023 Active Sertraline HCl 100 MG Oral Tablet (Zoloft)Indicati ons:Recurrent major depressive disorder, in full remission (HCC) TAKE 1 & 1/2 TABLETS BY MOUTH IN THE MORNING. 30 Tablet 11 11/26/2023 Active Ondansetron 4 MG Oral Tablet DisintegratingIn dications:Bilate ral renal stones Place 1 Tablet on tongue every 8 hours as needed for Nausea. dissolve on tongue. 20 Tablet 5 08/28/2023 11/28/2023 Discontinued Ondansetron HCl 4 MG Oral Tablet Take 1 Tablet by mouth in the morning and 1 Tablet at noon and 1 Tablet before bedtime. 20 Tablet 11/03/2023 11/28/2023 Discontinued Promethazine HCl 25 MG Oral Tablet (Phenergan) Take 1 Tablet by mouth every 6 hours as needed for Nausea. or vomiting 12 Tablet 11/19/2023 11/28/2023 Discontinued documented as of this encounter (statuses as of 11/29/2023) Active Problems Problem Noted Date Diagnosed Date [...] Menorrhagia with regular cycle 04/16/2021 [facility] OTHER*[id number] 01/24/2021 Gastroesophageal reflux disease with esophagitis 01/04/2019 [...] as of this encounter (statuses as of 11/29/2023) Resolved Problems Problem Noted Date Diagnosed Date [...] as of this encounter (statuses as of 11/29/2023) Immunizations Name Administration Dates Next Due COVID-19 [...] Sign Reading Time Taken Comments Blood Pressure 128/88 11/28/2023 2:17 PM EDT Pulse 125 11/28/2023 2:17 PM EDT Temperature 36.8 C (98.2 F) 11/28/2023 2:17 PM ED T Respiratory Rate 20 11/28/2023 2:17 PM EDT Oxygen Saturation 100% 11/28/2023 2:17 PM EDT Inhaled Oxygen Concentration - - Weight 101.6 kg (224 lb) 11/28/2023 2:17 PM EDT Height 167.6 cm (5' 6") 11/28/2023 2:17 PM EDT Body Mass Index 36.15 11/28/2023 2:17 PM EDT documented in this encounter Functional [...] No 08/25/2023 documented as of this encounter Discharge Instructions * Discharge Instructions* Keven Rojas MD - 11/28/2023 2:45 PM EDT Go directly to labor and delivery area, ER staff should help you get there. documented in this encounter Progress Notes * Keven Rojas MD - 11/28/2023 2:38 PM EDT I received a discussion via secure text from [facility] triage officer as patient has been in the office setting and was having contractions at 32 weeks EGA, also question regarding if she had UTI or not. Given abdominal symptoms and EGA it seems best to send her to L and D first than if further work needed could return to ER if that is felt indicated Keven Rojas Jr., MD documented in this encounter ED Notes * Kayley Betts RN - 11/28/2023 2:17 PM EDT 33 weeks . Was sent from Urgent Care for complicated UTI. Attempted to call [facility]A prior to rooming pt, no answer. After bringing pt to ED bed 18, I was able to get ahold of staff on 6A who stated they would come down to evaluate baby documented in this encounter Plan of Treatment Upcoming Encounters Date Type Department Care Team (Late st Contact Info) Description 02/16/2024 10:00 AM EDT Office Visit Family Practice Kacie Gupta [place] [address] [facility] [place] [address] Dimas Doty DO [address] [facility] [place] [address] Scheduled Procedures Name Priority Associated Diagnoses Date/Ti [...] Name Priority Date/Time Associated Diagnosis Comments URINALYSIS, REFLEX TO CULTURE STAT 11/28/2023 2:28 PM EDT URINALYSIS, REFLEX TO CULTURE (CUP ONLY) STAT 11/28/2023 2:28 PM EDT URINALYSIS, REFLEX TO CULTURE (NOT FOR NEUTROPENIC PATIENTS) STAT 11/28/2023 2:28 PM EDT documented in this encounter Results * (ABNORMAL) URINALYSIS, REFLEX TO CULTURE (11/28/2023 2:28 PM EDT) Color, Urine Yellow Light Yellow, Yellow, Dark Yellow 11/28/2023 2:47 PM EDT [facility] Clarity, Urine Cloudy(A) Clear 11/28/2023 2:47 PM EDT [facility] Glucose, Urine Negative Negative mg/dL 11/28/2023 2:47 PM EDT [facility] Bilirubin, Urine Negative Negative 11/28/2023 2:47 PM EDT [facility] Ketone, Urine Trace(A) Negative mg/dL 11/28/2023 2:47 PM EDT [facility] Specific [place], Urine 1.021 1.003 - 1.030 11/28/2023 2:47 PM EDT [facility] Blood, Urine Small(A) Negative 11/28/2023 2:47 PM EDT [facility] pH, Urine 6.5 5.0 - 7.5 Units 11/28/2023 2:47 PM EDT [facility] Protein, Urine 30(A) Negative mg/dL 11/28/2023 2:47 PM EDT [facility] Urobilinogen, Urine 1.0 0.2, 1.0 mg/dL 11/28/2023 2:47 PM EDT [facility] Nitrite, Urine Positive(A) Negative 2:47 PM EDT [facility] Esterase, Urine Large(A) Negative 11/28/2023 2:47 PM EDT [facility] RBC, Urine 50+(A) 0 - 2 /HPF 11/28/2023 2:47 PM EDT [facility] WBC, Urine 50+(A) 0 - 2 /HPF 11/28/2023 2:47 PM EDT [facility] Bacteria, Urine >200(A) 0 - 25 /HPF 11/28/2023 2:47 PM EDT [facility] Squamous Epithelial Cells, Urine Many(A) None /HPF 11/28/2023 2:47 PM EDT [facility] Urine Urine specimen obtained by clean catch procedure / Unknown Non-blood Collection / Unknown 11/28/2023 2:28 PM EDT 11/28/2023 2:36 PM EDT [facility] LAB URINE ORDERABLE S Performing Organization Address [facility] Co de Phone Number LABORATORY [facility] [address] [place] [address] * URINALYSIS, REFLEX TO CULTURE (CUP ONLY) (11/28/2023 2:28 PM EDT) Urinalysis, Reflex to Culture Specimen Specimen collected and received 11/28/2023 4:[address] [facility] Urine Urine specimen obtained by clean catch procedure / Unknown Non-blood Collection / Unknown 11/28/2023 2:28 PM EDT 11/28/2023 2:36 PM EDT [facility] LAB URINE ORDERABLE S Performing Organization Address [facility] Co de Phone Number LABORATORY [facility] [address] [place] [address] documented in this encounter Visit Diagnoses Diagnosis Abdominal cramps- Primary Abdominal pain, unspecified site Third trimester documented in this encounter Advance Directives * [...] Directives occurred with: Not Discussed Care Teams Instrument Room Technician Relationship Specialty Start Date End Date Dimas Doty DO [address] [place] [address] PCP - General Family Medicine 06/09/19 documented as of this encounter
--- OUTSIDE RECORDS SUMMARY | 2023-12-08 08:02 | External Medical Summary ---
Author Name Unknown Address Unknown Organization K1F:[facility] - [address] [place] [address] Laboratory Report Ordering Provider Test Date Status ANTHONY RAMOS 11/28/2023 14:28:44 Final Observation Date Value Abnormality Reference (Units ) Status Color of Urine by Auto 11/28/2023 14:28:44 Yellow Light Yellow, Yellow, Dark Yellow Final Clarity, Urine 11/28/2023 14:28:44 Cloudy Abnormal Clear Final Glucose [Mass/volume] in Urine by Automated test strip 11/28/2023 14:28:44 Negative Negative (mg/dL) Final Bilirubin.total [Presence] in Urine by Automated test strip 11/28/2023 14:28:44 Negative Negative Final Ketones [Mass/volume] in Urine by Automated test strip 11/28/2023 14:28:44 Trace Abnormal Negative (mg/dL) Final Specific gravity, Urine 11/28/2023 14:28:44 1.021 1.003-1.030 Final Hemoglobin [Presence] in Urine by Automated test strip 11/28/2023 14:28:44 Small Abnormal Negative Final pH, Urine 11/28/2023 14:28:44 6.5 5.0-7.5 (Units) Final Protein [Mass/volume] in Urine by Automated test strip 11/28/2023 14:28:44 30 Abnormal Negative (mg/dL) Final Urobilinogen [Mass/volume] in Urine by Automated test strip 11/28/2023 14:28:44 1.0 0.2, 1.0 (mg/dL) Final Nitrite [Presence] in Urine by Automated test strip 11/28/2023 14:28:44 Positive Abnormal Negative Final Leukocyte esterase [Presence] in Urine by Automated test strip 11/28/2023 14:28:44 Large Abnormal Negative Final RBC, Urine 11/28/2023 14:28:44 50+ Abnormal 0-2 (/HPF) Final WBC, Urine 11/28/2023 14:28:44 50+ Abnormal 0-2 (/HPF) Final Bacteria [#/area] in Urine sediment by Microscopy high power field 11/28/2023 14:28:44 >200 Abnormal 0-25 (/HPF) Final Epithelial cells.squamous [#/area] in Urine sediment by Microscopy high power field 11/28/2023 14:28:44 Many Abnormal None (/HPF) Final Performing Location LABORATORY [address] [place] [address]
--- OUTSIDE RECORDS SUMMARY | 2023-12-08 08:02 | External Medical Summary | Summary of Care ---
Author Name Unknown Organization [facility] Address [address] [place] [address] Phone [phone] Care Team Providers Care Biology Department Chair Name Role Phone OctavioDimas umana Primary Care Provider [phone] Encounter Details Date Type Department Care Team (Late st Contact Info) Description 11/29/2023 Telephone [facility] Gynecology and Obstetrics [address] [place], [place] [phone] Joan Haque [facility] [address] [place], [place] [phone] Allergies Active Allergy Reactions Criticality Noted Date [...] Sulfate 325 (65 Fe) MG Oral Tablet (Feosol)Indications :History of gastric bypass,Other iron deficiency anemia 1 [...] for Pain, Moderate. 10 Tablet 11/23/2023 Active oxyCODONE-Acetamino phen 5-325 MG Oral Tablet (Percocet)Indicatio ns:Kidney stone Take 1 Tablet by mouth every [...] With food. Until gone.. 10 Capsule 11/28/2023 4 Active Ondansetron 4 MG Oral Tablet Disintegrating (Zofran) Place 1 Tablet on tongue every 8 hours as needed for Nausea. 20 Tablet 11/28/2023 Active Ondansetron 4 MG Oral Tablet DisintegratingIndic ations:Bilateral renal stones Place 1 Tablet on tongue every 8 hours as needed for Nausea. dissolve on tongue. 20 Tablet 11/28/2023 Active oxyCODONE HCl 5 MG Oral Tablet (Oxy IR) Take 1 Tablet by mouth every 8 hours as needed for Pain, Severe. 5 Tablet 11/29/2023 Active oxyCODONE HCl 5 MG Oral Capsule (Oxy IR) Take 1 Capsule by mouth every 8 hours as needed for Pain, Severe. 5 Tablet 11/28/2023 4 Discontinued documented as of this encounter (statuses [...] Menorrhagia with regular cycle 04/16/2021 [facility] OTHER*[id number] 01/24/2021 Gastroesophageal reflux disease with esophagitis 01/04/2019 [...] encounter Miscellaneous Notes * Telephone Encounter - Joan Haque CNM - 11/29/2023 11:57 AM EDT T/c from patient she is at the pharmacy and unable to pickup up her oxy ir. I had sent in capsules and the pharmacy only has tablets. She was able to get her zofran and macrobid. T/c to [facility], confirms unable to dispense capsules as they do not stock these. New script sent for oxy ir tablets. T/C to [facility] made aware new script sent. No other concerns voiced. Joan Haque CNM documented in this encounter Plan of Treatment Upcoming Encounters Date Type Department Care Team (Late st Contact Info) Description 02/16/2024 10:00 AM EDT Office Visit Family Practice [facility] [address] [facility] [place] [address] Dimas Doty, [address] [facility] [place] [address] Scheduled Procedures Name Priority Associated Diagnoses Date/Ti [...] Directives occurred with: Not Discussed Care Teams Biology Department Chair Relationship Specialty Start Date End Date Dimas Doty DO [address] [place] [address] PCP - General Family Medicine 06/09/19 documented as of this encounter
--- OUTSIDE RECORDS SUMMARY | 2023-12-08 08:02 | External Medical Summary | Summary of Care ---
Author Name Unknown Organization [facility] Address [address] [place] [address] Phone [phone] Care Team Providers Care Mgmt Specialist Name Role Phone Levar Ordonez DO Primary Care Provider [phone] Reason for Referral * Medication Prior Authorization - Closed Specialty Diagnoses / Procedures Referred By Rosendo trujillo Referred To Contact Diagnoses Kidney stone Levar Ordonez DO [address] [place] [address] Referral ID Status Reason Start Date Expiration Date Visits Re quested Visits Authorized [id number] Closed [phone] Reason for Visit * Reason Onset Date Comments Medication Refill 11/27/2023 Encounter Details Date Type Department Care Team (Late st Contact Info) Description 11/27/2023 Refill Family Practice [facility] [address] [place] [address] Levar Ordonez DO [address] [place] [address] Kidney stone Allergies Active Allergy Reactions Criticality Noted Date Comments Prochlorperazine Psych complications 06/12/2020 Probably dystonic reaction. The patient does tolerate Phenergan Morphine Hives Low 03/20/2019 Pt feels the rash may have been from tape at the IV site. Sulfamethoxazole Hives High 03/03/2021 Trimethoprim Hives High 05/02/2018 documented as of this encounter (statuses as of 11/30/2023) Medications Medication Sig Dispensed Refills Start Date [...] THE MORNING. 30 Tablet 11 11/26/2023 Active oxyCODONE-Aceta minophen 5-325 MG Oral Tablet (Percocet)Indic ations:Kidney stone Take 1 Tablet by mouth every 8 hours as needed for Pain, Severe. Space out to try to decrease dose with . 20 Tablet 11/30/2023 Active Ondansetron 4 MG Oral Tablet DisintegratingI [...] as of this encounter (statuses as of 11/30/2023) Active Problems Problem Noted Date Diagnosed Date [...] Menorrhagia with regular cycle 04/16/2021 [facility] OTHER*[id number] 01/24/2021 Gastroesophageal reflux disease with esophagitis 01/04/2019 [...] as of this encounter (statuses as of 11/30/2023) Resolved Problems Problem Noted Date Diagnosed Date [...] as of this encounter (statuses as of 11/30/2023) Immunizations Name Administration Dates Next Due COVID-19 mRNA, LNP-s, No Pre serve, 2-Dose Series (Tellme) 04/03/2021,06/26/2020,06/05/2020 DTaP Dipth/Tet/Acell Pertussis (Infanrix), Peds 01/06/2017,09/28/1997,09/18/1994,08/15,1993,1993 [...] No 05/05/2023 Does the household have a [facility] source of income? (Household - for ages [...] Telephone Encounter - Levar Ordonez DO - 11/30/2023 10:02 AM EDTSigned Prescriptions: Disp Refills oxyCODONE-Acetaminophen 5-325 MG Oral Tabl*20 Tab*0 Sig: Take 1 Tablet by mouth every 8 hours as needed for Pain, Severe. Space out to try to decrease dose with . Authorizing Provider: LEVAR ORDONEZ * Telephone Encounter - Rox Lynch [facility] - 11/28/2023 9:34 AM EDTPending Prescriptions: Disp Refills oxyCODONE-Acetaminophen 5-325 MG Oral Tabl*20 Tab*0 Sig: Take 1 Tablet by mouth every 8 hours as needed for Pain, Severe. Space out to try to decrease dose with . * Telephone Encounter - Rox Lynch [facility] - 11/28/2023 9:34 AM EDT I have reviewed the patients controlled substance dispensing history in the Prescription Drug Monitoring Program in compliance with the [facility] regulations before prescribing a controlled substance. PDMP checked on 11/28/2023. Pending Prescriptions: Disp Refills oxyCODONE-Acetaminophen 5-325 MG Oral Tab*20 Tab*0 Sig: Take 1 Tablet by mouth every 8 hours as needed for Pain, Severe. Space out to try to decrease dose with . Last Visit: 12/30/2022 (in office), 08/07/2023 (telemedicine) Next Visit: 02/16/2024 Date medication was last filled: 11/23/23 Date medication is due for refill: 11/28/23 Pharmacy: [id number] [address] [place] Is this request for a controlled substance? Yes and Urine Drug Screen Not completed Toxicology results: No results found. However, due to the size of the patient record, not all encounters were searched.Please check Results Review for a complete set of results. Please approve if appropriate. Thanks, Rox Lynch Clinical Pharmacist [facility] [phone] 11/28/2023, 9:34 AM * Telephone Encounter - Zhane Escobar CPhT - 11/27/2023 4:06 PM EDT Patient calling to check on status of oxyCODONE-Acetaminophen 5-325 MG . Caller can be reached at [phone] Thank you, Zhane Escobar Travel Service Consultant [facility] 11/27/2023, 4:06 PM * Telephone Encounter - Ang An receiving teller - 11/27/2023 1:50 PM EDT Did you pend patient's preferred pharmacy and medication before forwarding?yes Pharmacy: [id number] [address] Pending Prescriptions: Disp Refills oxyCODONE-Acetaminophen 5-325 MG Oral Tab*20 Tab*0 Sig: Take 1 Tablet by mouth every 8 hours as needed for Pain, Severe. Space out to try to decrease dose with . Last Visit: 12/30/2022 (in office), 08/07/2023 (telemedicine) Next Visit: 02/16/2024 If no future appointments scheduled, and last appointment is greater than a year ago, please schedule patient for a follow-up appointment Last date the medication was ordered: 11/23/2023 Is this request for a controlled substance?Yes, What was the last refill date 11/23/2023 w/ [id number] tabs and dosage 5-325 mg and Urine Drug Screen Not completed Urine [...] 12:00 AM HGBA1C 5.3 01/11/2015 04:24 PM l documented in this encounter Plan of Treatment Upcoming Encounters Date Type Department Care Team (Late st Contact Info) Description 02/16/2024 10:00 AM EDT Office Visit Family Practice [place] [facility] Gonsalez [address] [place] [address] Levar Ordonez, [address] [place] [address] Scheduled Procedures Name Priority Associated Diagnoses Date/Ti [...] Directives occurred with: Not Discussed Care Teams Mgmt Specialist Relationship Specialty Start Date End Date Levar Ordonez DO [address] [place] [address] PCP - General Family Medicine 06/09/19 documented as of this encounter
--- OUTSIDE RECORDS SUMMARY | 2023-12-08 08:02 | External Medical Summary | Summary of Care ---
Author Name Unknown Organization [facility] Address [address] [place] [address] Phone [phone] Care Team Providers Care Residential Property Tax Appraiser Name Role Phone OctavioDimas umana Primary Care Provider [phone] Reason for Visit * Auth/Cert Specialty Diagnoses / Procedures Referred By Contcaryn t Referred To Contact Diagnoses related condition, unspecified trimester Nicki Sumner MD [address] [place] [address] 6ob Ip [facility] [address] [place] [address] Referral ID Status Reason Start Date Expiration Date Visits Re quested Visits Authorized [id number] Encounter Details Date Type Department Care Team (Latest Contact Info) Description 11/28/2023 2:56 PM EDT - 11/28/2023 8:30 PM EDT Hospital Encounter 6OB [facility], Obstetrics, [facility] 6th Floor [address] [place], [place] [id number] Nicki Sumner MD [address] [facility] [place] [id number] Discharge Disposition: Home - Self Care Allergies [...] With food. Until gone.. 10 Capsule 11/28/2023 Active oxyCODONE HCl 5 MG Oral Capsule (Oxy IR) Take 1 Capsule by mouth every 8 hours as needed for Pain, Severe. 5 Tablet 11/28/2023 Active Ondansetron 4 MG Oral Tablet Disintegrating (Zofran) Place 1 Tablet on tongue every 8 hours as needed for Nausea. 20 Tablet 11/28/2023 Active Ondansetron 4 MG Oral Tablet DisintegratingIndic ations:Bilateral renal stones Place 1 Tablet on tongue every 8 hours as needed for Nausea. dissolve on tongue. 20 Tablet 11/28/2023 Active Ondansetron 4 MG [...] or vomiting 12 Tablet 11/19/2023 4 Discontinued documented as of this encounter [...] Menorrhagia with regular cycle 04/16/2021 [facility] OTHER*[id number] 01/24/2021 Gastroesophageal reflux disease with esophagitis 01/04/2019 [...] Sign Reading Time Taken Comments Blood Pressure 126/74 11/28/2023 3:05 PM EDT Pulse 111 11/28/2023 3:05 PM EDT Temperature 36.4 C (97.5 F) 11/28/2023 3:05 PM ED T Respiratory Rate 18 11/28/2023 3:05 PM EDT Oxygen Saturation - - Inhaled Oxygen Concentration - - Weight - - Height - - Body Mass Index - - documented in this encounter Functional Status Functional [...] No 08/25/2023 documented as of this encounter Progress Notes * Joan Haque, ALYSON - 11/28/2023 5:43 PM EDT PROGRESS NOTE -Triage- Obstetrics [facility]-[address] [address] Name: Zan Snell Location: [facility] [id number] Date: 11/28/2023 Time: 5:43 PM SUBJECTIVE: Patient is a at 32w1d presenting for new onset foul smelling urine, ongoing flank pain. She reports waking up this morning to foul smelling cloudy urine, burning, and frequency. She does note some cramping but does not feel it is uterine but more with voiding. She is feeling FM,denies any DFM. Denies any LOF, VB, or RUC. She originally went to urgent care who recommended she be seen in the ER due to her history and , ER then directed her to L&D triage d/t gestational age and cramping. Patient receives OB care at [facility]. She reports last visit yesterday. She has extensive history of kidney stones prior to that has worsened during . She has been treated several times for UTIs due to the kidney stones, including admission. Often has a hard time deciphering UTI symptoms from Kidney stone flares. States she has been taking her oxycodone for the flank pain, prescribed by her PCP, about every 8 hours or 3x a time. This does usually help. She reports she has enough to last until tomorrow and hasa refill request into her PCP. She also is requesting a script for zofran. PDMP does reflect his use since May 2023. She is reporting pain and nausea currently. Currently: Patient reports pain and nausea was resolved with medications. Cramping is minimal. OBJECTIVE: Most Recent Vital Signs: BP: 126 mmHg/74 mmHg (11/28/23 1505) Pulse: 111 (11/28/23 1505) Resp: 18 (11/28/23 1505) Temp: 36.39 C (11/28/23 1505) Temp Summary: Temp Min: 36.4 C (97.5 F) Max: 36.4 C (97.5 F) SpO2: O2 flow rate: Supplemental O2 Delivery: Room Air, None (11/28/23 1505) Vital Signs Last 24 Hours: Systolic BP: Most Recent Systolic BP Av mmHg Min: 126 mmHg Max: 126 mmHg Temperature: Most Recent Temperature Av.39 C Min: 36.39 C Max: 36.39 C Pulse: Pulse Av Min: 111 Max: 111 Respirations: Resp Av Min: 18 Max: 18 SpO2: No data recorded RENAL US 11/28/23 IMPRESSION: 1. Multiple nonobstructing bilateral renal calculi measuring up to 7 mm. 2. Mild bilateral hydronephrosis related to underlying . 3. 1.3 cm simple right renal cys On admission: heart tone: Cat 1, 140s, moderate variability, +accels, no decels Contractions: There is irritability . Cervical exam:deferred Current: heart tone: Cat 1, 140s, moderate variability, +accels, no decels Contractions: There is irritability Cervical exam: Declined by patient. ASSESSMENT: 28y.o at 32w1d Flank pain Hydronephrosis Kidney Stones Cat 1 EFM PLAN: Discharge home with close follow up with her OB, PCP, and Urology. US essentially unchanged from 11/20/23 and no obstruction noted. Patient has had 2L of IV fluids, 1g Rocephin IV, and will send home on Macrobid BID for 5 days. Will send in 5 oxy IR tabs to make it until Thursday and can reach out to her PCP. Will send zofran. Recommended she follow up with urine culture to make sure she is being treated with appropriate antibiotic, Macrobid was found to be indeterminate with prior UTI earlier this year. This plan made in collaboration with Dr. Sumner. She feels comfortable with plan of care anddischarge. Discussion had on recommendations for prolonged use of oxy IR in , aware that typically our [facility] recommends routine growth US and 5day stay for s/s of withdrawal, she states she is aware of this and has discussed with her PCP and OB. Discussed would also recommend since she has had previous UTI's in and with known stones she may benefit from prophylaxis once this UTI hascleared, she will discuss with her care team. documented in this encounter Nursing Notes * Yvonne Abreu, RN - 11/28/2023 7:55 PM EDT Images from the original note were not included. OB DISCHARGE INSTRUCTIONS [facility]-[address] [address] Patient Name: Zan Snell Discharge Date: 11/28/2023 Check your patient education brochure for further information. You may call the office between the hours of 7:00 A.M. - 8:00 P.M. The information below provides you with the instructions and the list of medications you need to betaking following discharge from the hospital. If you have any questions, please ask before leaving.Please carry this letter with you when you see your doctor in the clinic. If you have questions, you can reach us at the numbers above. You came to triage with complaint of: pain, frequent urination and burning You were diagnosed with: uti Your treatment was: fluids, antibiotics Allergies: Sulfamethoxazole, Trimethoprim, Compazine [prochlorperazine], and Morphine Diet: Normal diet Activity: No restrictions Date you may return to work or school: 11/29/2023 Return to triage if you have: 1. Painful contractions, greater than 6 to 8 per hour 2. Severe abdominal pain 3. Vaginal bleeding 4. Leaking of fluid 5. Decreased movement (fewer than 10 movements in a 2 hour period) Do not smoke or use tobacco products in any way! Quit Line: Medications: MEDICATION UPDATES AT DISCHARGE START taking these medications INSTRUCTIONS Nitrofurantoin Monohydrate Macrocrystals 100 MG Capsule Commonly known as: Macrobid Take 1 Capsule by mouth in the morning and 1 Capsule before bedtime. Do all this for 5 days. With food. Until gone.. oxyCODONE 5 MG Capsule Commonly known as: Oxy IR Take 1 Capsule by mouth every 8 hours as needed for Pain, Severe. CHANGE how you take these medications INSTRUCTIONS * ondansetron ODT 4 MG Tbdp Commonly known as: Zofran What changed: You were already taking a medication with the same name, and this prescription was added. Make sure you understand how and when to take each. Place 1 Tablet on tongue every 8 hours as needed for Nausea. * ondansetron ODT 4 MG Tbdp Commonly known as: Zofran ODT What changed: Another medication with the same name was added. Make sure you understand how and when to take each. Place 1 Tablet on tongue every 8 hours as needed for Nausea. dissolve on tongue. * This list has 2 medication(s) that are the same as other medications prescribed for you. Read thedirections carefully, and ask your doctor or other care provider to review them with you. CONTINUE taking these medications INSTRUCTIONS Acetaminophen 325 MG Caps Take 325 mg by mouth every 6 hours as needed for Pain, Mild. busPIRone 10 MG Tablet Commonly known as: Buspar Take 1 Tablet by mouth in the morning. [facility] Gummy 0.4-113.5 MG Tablet Take 1 Tablet by mouth in the morning. cyclobenzaprine 10 MG Tablet Commonly known as: Flexeril Take 1 Tablet by mouth every 6 hours as needed for Pain, Moderate. Ferrous Sulfate 325 (65 FE) MG Tablet Commonly known as: Feosol 1 daily omeprazole 20 MG Cpdr Commonly known as: PriLOSEC Take 1 Capsule by mouth in the morning. oxyCODONE-acetaminophen 5-325 mg per tab Commonly known as: Percocet Take 1 Tablet by mouth every 8 hours as needed for Pain, Severe. Space out to try to decrease dose with . sertraline 100 MG Tablet Commonly known as: Zoloft TAKE 1 & 1/2 TABLETS BY MOUTH IN THE MORNING. tamsulosin 0.4 MG Capsule Commonly known as: Flomax Take 1 Capsule by mouth in the morning. Tums 500 MG chewable tablet Generic drug: Calcium Carbonate Antacid Take 2 Tablets by mouth daily as needed for Heartburn. STOP taking these medications ondansetron 4 MG Tablet Commonly known as: Zofran promethazine 25 MG Tablet Commonly known as: Phenergan Discharge Checklist: Do you have all of your prescriptions or know which pharmacy they have been sent to? Do you have all of your personal belongings? Do you have medications that you brought with you to the hospital (if applicable)? To understand how well we have prepared you (the Patient or Caregiver) for your discharge, can you answer the following teach-back questions? (Excludes patients being discharged to another facility). Why was I in the hospital? What do I need to do to care for myself after discharge? (Example: diet, activity, follow up appointments, medications, when to call the doctor, etc.) Why is this important to my health? Acknowledgement: These discharge instructions and any applicable medication instructions are an important part of your care. You have the right to have these instructions explained to you, to be given a copy, and have a chance to ask questions. If you have any further questions or concerns after these instructions are reviewed, please discuss with your nurse prior to discharge. Please take this form with you: when picking up your medications at the pharmacy to your next visit with your Primary Care Physician Do not smoke or use tobacco products in any way! Quit Line: * Holly Carr, RN - 11/28/2023 2:50 PM EDT 1450 G 2 P 1, 32+1 week arrived to unit via w/c after brief evaluation in ED. Pt reports left sided flank discomfort which has been ongoing due to kidney stone, but pain more intense since Thursday. Pt also reports some occasional abdominal cramping, urinary frequency and burning with urination, pt reports her urine began smelling foul today. Denies vaginal bleeding or fluid leakage. Affirms feeling movement. documented in this encounter Plan of Treatment Upcoming Encounters Date Type Department Care Team (Late st Contact Info) Description 02/16/2024 10:00 AM EDT Office Visit Family Practice [facility] [place] [address] [place], [place] [address] Dimas Doty DO [address] [place], [place] [address] Scheduled Orders Name Type Priority Associated Diagnoses Orde r Schedule NON-STRESS TEST Procedures Routine One Time for 1 Occurrences starting 11/28/2023 until 11/28/2023 Scheduled Procedures Name Priority Associated Diagnoses Date/Ti [...] Procedure Name Priority Date/Time Associated Diagnosis Comments US RENAL STAT 11/28/2023 4:37 PM EDT documented in this encounter Results * US RENAL (11/28/2023 4:37 PM EDT) Anatomical Region Laterality Modality Abdomen, Body Ultrasound 11/28/2023 4:07 PM EDT Impressions 11/28/2023 6:36 PM EDT IMPRESSION: 1. Multiple nonobstructing bilateral renal calculi measuring up to 7 mm. 2. Mild bilateral hydronephrosis related to underlying . 3. 1.3 cm simple right renal cyst. THIS DOCUMENT HAS BEEN ELECTRONICALLY SIGNED BY ERICA MASON MD Narrative 11/28/2023 6:36 PM EDT PROCEDURE INFORMATION: Exam: US Retroperitoneal; Complete; Kidneys and Bladder Exam date and time: 11/28/2023 4:07 PM Age: 28 years old Clinical indication: Abdominal pain; Flank; Left; ; Additional info: Assessing for obstructive stones, ongoing flank pain, known kidney stones TECHNIQUE: Imaging protocol: Real-time ultrasound of the retroperitoneum with image documentation. Complete exam focused on the kidneys and bladder. COMPARISON: US RENAL 11/20/2023 1:12 AM FINDINGS: Right kidney: Normal cortical echogenicity and thickness. A simple anechoic cyst is present in the superior pole measuring up to 1.3 cm . Multiple shadowing stones are seen up to 7 mm in the inferior pole. Mild hydronephrosis without proximal obstructing calculus. Left kidney: Normal cortical echogenicity and thickness. Multiple shadowing calculi are present measuring up to 7 mm in the superior pole. Mild hydronephrosis without obstructing proximal calculus. Urinary bladder: Unremarkable. Procedure Note Erica Mason MD - 11/28/2023 PROCEDURE INFORMATION: Exam: US Retroperitoneal; Complete; Kidneys and Bladder Exam date and time: 11/28/2023 4:07 PM Age: 28 years old Clinical indication: Abdominal pain; Flank; Left; ; Additionalinfo: Assessing for obstructive stones, ongoing flank pain, known kidney stones TECHNIQUE: Imaging protocol: Real-time ultrasound of the retroperitoneum with image documentation. Complete exam focused on the kidneys and bladder. COMPARISON: US RENAL 11/20/2023 1:12 AM FINDINGS: Right kidney: Normal cortical echogenicity and thickness. A simpleanechoic cyst is present in the superior pole measuring up to 1.3 cm . Multiple shadowing stones are seen up to 7 mm in the inferior pole. Mildhydronephrosis without proximal obstructing calculus. Left kidney: Normal cortical echogenicity and thickness. Multipleshadowing calculi are present measuring up to 7 mm in the superior pole. Mild hydronephrosis without obstructing proximal calculus. Urinary bladder: Unremarkable. IMPRESSION IMPRESSION: 1. Multiple nonobstructing bilateral renal calculi measuring up to 7 mm. 2. Mild bilateral hydronephrosis related to underlying . 3. 1.3 cm simple right renal cyst. THIS DOCUMENT HAS BEEN ELECTRONICALLY SIGNED BY ERICA MASON MD [facility] documented in this encounter Visit Diagnoses Diagnosis Right flank pain- Primary Abdominal pain, unspecified site Bilateral renal stones Hydronephrosis Renal stones Calculus of kidney Dysuria with 32 completed weeks gestation documented in this encounter Administered Medications Inactive Administered Medications - up to 3 most recent administrations Medication Order MAR Action Action Date Dose Rate Site cefTRIAXone in dextrose (Rocephin) IVPB 1 g IV Piggyback, 1 g, ONCE, 1 dose, On 11/28/23 at 1615, Administer over 30 Minutes New Bag 11/28/2023 4:42 PM EDT 1 g 100 mL/hr isolyte 1,000 mL bolus infusion Intravenous, Administer entire volume within 60 minutes or less. Plasma-LYTE 148, isolyte-S, and isolyte-S pH 7.4 are considered equivalent - including for MAR barcode scanning., ONCE, 1 dose, On 11/28/23 at 1915 New Bag 11/28/2023 6:52 PM EDT 1,000 mL 1000 mL/hr isolyte 500 mL bolus infusion Intravenous, Administer entire volume within 60 minutes or less. Plasma-LYTE 148, isolyte-S, and isolyte-S pH 7.4 are considered equivalent - including for MAR barcode scanning., ONCE, 1 dose, On 11/28/23 at 1615 New Bag 11/28/2023 3:55 PM EDT 500 mL 500 mL/hr ondansetron (Zofran) inj 4 mg 4 mg, IV Push, ONCE, On 11/28/23 at 1615, For 1 dose Given 11/28/2023 3:55 PM EDT 4 mg oxyCODONE (Oxy IR) tab 5 mg 5 mg, Oral, ONCE, On 11/28/23 at 1615, For 1 dose Given 11/28/2023 3:58 PM EDT 5 mg documented in this encounter Active and Recently Administered Medications Times are shown in EDT. Scheduled Medication Order 11/26/2023 11/27/2023 11/28/2023 cefTRIAXone in dextrose (Rocephin) IVPB 1 g (COMPLETED) IV Piggyback, 1 g, ONCE, 1 dose, On 11/28/23 at 1615, Administer over 30 Minutes 1642 (New Bag - Prov ider: Holly Carr RN) isolyte 1,000 mL bolus infusion (COMPLETED) Intravenous, Administer entire volume within 60 minutes or less. Plasma-LYTE 148, isolyte-S, and isolyte-S pH 7.4 are considered equivalent - including for MAR barcode scanning., ONCE, 1 dose, On 11/28/23 at 1915 1852 (New Bag - Prov ider: Holly Carr RN) isolyte 500 mL bolus infusion (COMPLETED) Intravenous, Administer entire volume within 60 minutes or less. Plasma-LYTE 148, isolyte-S, and isolyte-S pH 7.4 are considered equivalent - including for MAR barcode scanning., ONCE, 1 dose, On 11/28/23 at 1615 1555 (New Bag - Prov ider: Holly Carr RN) ondansetron (Zofran) inj 4 mg (COMPLETED) 4 mg, IV Push, ONCE, On 11/28/23 at 1615, For 1 dose 1555 (Given - Provid er: Holly Carr RN) oxyCODONE (Oxy IR) tab 5 mg (COMPLETED) 5 mg, Oral, ONCE, On 11/28/23 at 1615, For 1 dose 1558 (Given - Provid er: Holly Carr RN) documented in this encounter Advance Directives * [...] Directives occurred with: Not Discussed Care Teams Residential Property Tax Appraiser Relationship Specialty Start Date End Date Dimas Doty DO [address] [place] [address] PCP - General Family Medicine 06/09/19 documented as of this encounter
--- OUTSIDE RECORDS SUMMARY | 2023-12-08 08:02 | External Medical Summary | Summary of Care ---
Author Name Unknown Organization [facility] Address [address] [place] [address] Phone [phone] Care Team Providers Care Hydrochloric Area Supervisor Name Role Phone Dimas Doty DO Primary Care Provider [phone] Reason for Referral * Evaluate & Treat - Unlimited Visits (Within 10 days (routine)) - Authorized Specialty Diagnoses / Procedures Referred By Rosendo trujillo Referred To Contact Obstetrics/Gynecology / Maternal Medicine Diagnoses Chronic, continuous use of opioids 31 weeks gestation of Dimas Doty DO [address] [place] [address] Referral ID Status Reason Start Date Expiration Date Visits Requested Visits Authorized [id number] Authorized Specialty Services Required 11/26/2023 999 999 Question Answer Referral Priority Within 10 days (routine) Where should this appointment be scheduled? [facility] Has the patient had a viability scan? Yes Date performed 11/20/2023 Location performed Radiology Reason for referral Medication exposure Please provide additional details PT on chronic opioids and muscle relaxers throughout Comments /Para: LMP: Patient's last menstrual period was 04/17/2023 (approximate). Patient is . AARON: 01/22/2024, Date entered prior to episode creation Pre-Gravid BMI: Could not be calculated * Evaluate & Treat - Unlimited Visits (Within 30 days (routine)) - Authorized Specialty Diagnoses / Procedures Referred By Rosendo trujillo Referred To Contact Pharmacist / Pharmacy Diagnoses Chronic, continuous use of opioids 31 weeks gestation of Dimas Doty DO [address] [place] [address] Referral ID Status Reason Start Date Expiration Date Visits Requested Visits Authorized [id number] Authorized Specialty Services Required 11/26/2023 99 99 Question Answer Referral Priority Within 30 days (routine) Where should this appointment be scheduled? [facility] Referring Provider Role: Primary Care Reason for Referral: Pain Pain Diagnosis: Other Further Details of Diagnosis: Kidney stones Pain Treatment Options: Opioids and/or Non-opioids Does patient have a signed KIMBERLY? This is required for patients on opioids Yes Has patient completed a Urine Drug Screen in the past 3 months? This is required for patients on opioids No Pain Treatment Goal: Med Wean Is patient aware of the wean? Yes Comments Pt currently and agreeable to working on wean of oxycodone. History of recurrent kidney stones and stents that somehow lead to regular daily use. Pharmacist Medication Therapy Management: Minimum frequency patient should be seen in person for medication management: as appropriate per clinical condition and patient status By my signature, I understand that my patient Zan Snell will have her medication therapy managed by the [facility] Medication Therapy Disease Management Clinic ([facility]) per established policies, procedures, and protocols. I also certify that this referral may serve as an initiation of service for the management of drug therapy in the above noted patient. [facility] providers will be responsible for scheduling patient visits, obtaining appropriate laboratory studies, and adjusting medication management therapy per patient's need, in addition to those roles spelled out in the clinic policy, procedures, and drug management protocols. I understand that the service provided by the [facility] Clinic is voluntary and have informed patient that they can refuse the service at their discretion. I am aware that the [facility] will provide me with a copy of the patient encounter via my [employer]. I authorize the [facility] to carry out these activities on my behalf. I consider this program to be a necessary part of the patient's medical care. Dimas Doty DO Reason for Visit * Reason Onset Date Comments Appointment 11/24/2023 Encounter Details Date Type Department Care Team (Late st Contact Info) Description 11/24/2023 Telephone Family Practice [facility] [place] [address] [place] [address] Dimas Doty, [address] [facility] [place] [address] Appointment Allergies Active Allergy Reactions Criticality Noted Date Comments Prochlorperazine Psych complications 06/12/2020 Probably dystonic reaction. The patient does tolerate Phenergan Morphine Hives Low 03/20/2019 Pt feels the rash may have been from tape at the IV site. Sulfamethoxazole Hives High 03/03/2021 Trimethoprim Hives High 05/02/2018 documented as of this encounter (statuses as of 11/27/2023) Medications Medication Sig Dispensed Refills Start Date [...] dose with . 20 Tablet 11/23/2023 Active documented as of this encounter (statuses as of 11/27/2023) Active Problems Problem Noted Date Diagnosed Date [...] Menorrhagia with regular cycle 04/16/2021 [facility] OTHER*[id number] 01/24/2021 Gastroesophageal reflux disease with esophagitis 01/04/2019 [...] as of this encounter (statuses as of 11/27/2023) Resolved Problems Problem Noted Date Diagnosed Date [...] as of this encounter (statuses as of 11/27/2023) Immunizations Name Administration Dates Next Due COVID-19 mRNA, LNP-s, No Pre serve, 2-Dose Series ([place]) 04/03/2021,06/26/2020,06/05/2020 DTaP Dipth/Tet/Acell Pertussis (Infanrix), Peds 01/06/2017,09/28/1997,09/18/1994,08/15,1993,1993 [...] No 05/05/2023 Does the household have a [facility] source of income? (Household - for ages [...] encounter Miscellaneous Notes * Telephone Encounter - Aliyah Smith OSA - 11/27/2023 3:47 PM EDT They will reach out to get her scheduled for both. * Telephone Encounter - Dimas Doty DO - 11/26/2023 3:34 PM EDT Scheduling - please call to schedule with [facility] pharmacy and [facility]. Enedina CARDENAS, excellent suggestions! Jazzmine CARDENAS for visit tomorrow. * Telephone Encounter - Jae Funez MED ASSIST - 11/26/2023 10:29 AM EDT Please see patient's myg message. Thank you! documented in this encounter Plan of Treatment Upcoming Encounters Date Type Department Care Team (Late st Contact Info) Description 02/16/2024 10:00 AM EDT Office Visit Family Practice [facility] [address] [place] [address] [place] [address] Dimas Doty DO [address] [place], [place] [address] Scheduled Procedures Name Priority Associated Diagnoses Date/Ti me COLONOSCOPY FLEXIBLE PROXIMA L DIAGNOSTIC Recall History of colonic polyps Scheduled Referrals Name Type Priority Associated Diagnoses Orde r Schedule PHARMACIST MEDS THERAPY MGMT REFERRAL OP Referral Within 30 days (routine) Chronic, continuous use of opioids 31 weeks gestation of Ordered: 11/26/2023 MATERNAL MEDICINE REFERRAL OP Referral Within 10 days (routine) Chronic, continuous use of opioids 31 weeks gestation of Ordered: 11/26/2023 Health Maintenance Due Date Last Done Comments [...] as of this encounter Visit Diagnoses Diagnosis Chronic, continuous use of opioids- Primary Opioid type dependence, continuous 31 weeks gestation of state, incidental documented in this encounter Advance Directives * [...] Directives occurred with: Not Discussed Care Teams Hydrochloric Area Supervisor Relationship Specialty Start Date End Date Dimas Doty DO [address] [facility] [place] [address] PCP - General Family Medicine 06/09/19 documented as of this encounter
== END 2023-12-07 20:24 | disposition short-term general hospital (02) | DRG 832 ==
LOC: OPB 16:34 → 4S1 16:37 → INTOOBSV 18:16

== ENCOUNTER 2023-12-24 19:15 | Inpatient (IN) ==
--- NOTE | 2023-12-24 19:57 | OB/GYN Consultation ---
Date of Consultation December 24, 2023 Assessment & Plan (1) Acute right flank pain: will admit to L&D for continuous monitoring as she is complaining of contraction pain can treat flank pain with IV morphine PRN urology aware of her admission and will give recommendations for ongoing ureteral stone management History of Present Illness Reason for Consultation: 35 weeks gestation- kidney stone Attending Physician: Tere Frye MD, FACOG History of Present Illness Patient is a 28 yo female EDC 01/27/24 who presents at 35 1/7 weeks with increasing flank pain bilaterally. She is well known to us for her obstetric care and [facility] urology for management of her multiple kidney and ureteral stones. She has been admitted several times during this for management of both ureteral stone pain and pyelonephritis. she was admitted to [facility] at 32 weeks gestation for urosepsis and was discharged on suppressive Macrodantin. Today, She initially went to a [facility] in [place] who thought she should go to [facility] for further evaluation because of her history. She didn't have a ride to [place] so came to [facility] ER for evaluation. She has been afebrile and feels well except for bilateral flank pain and abdominal cramping. baby has been active. no fever or chills. WBC count is normal and she is afebrile. urine analysis is negative for bacteria but she does have proteinuria and calcium oxalate crystals. Currently she doesn't have any UTI symptoms. Allergies Allergy/AdvReac Type Severity Reaction Status Date / Time sulfamethoxazole Allergy Intermediate HIVES Verified 12/16/23 14:20 trimethoprim Allergy Intermediate HIVES Verified 12/16/23 14:20 Home Medications Medication Instructions Recorded Confirmed Type buspirone 10 mg tablet 10 mg PO HS 03/09/23 12/24/23 History cholecalciferol (vitamin D3) 125 125 mcg PO DAILY 03/09/23 12/24/23 History mcg (5,000 unit) capsule sertraline 100 mg tablet 100 mg PO DAILY 03/09/23 12/24/23 History cyanocobalamin (vitamin B-12) 1,000 mcg IM USEASDIRECTD 07/10/23 12/24/23 History 1,000 mcg/mL injection solution ferrous sulfate 325 mg (65 mg 325 mg PO BID 07/10/23 12/24/23 History iron) tablet pyridoxine (vitamin B6) 25 mg 25 mg PO DAILY PRN Other 07/10/23 12/24/23 History tablet (Vitamin B-6) vit no.133-ferrous 1 tab PO DAILY 11/02/23 12/24/23 History fumarate 28 mg-folic acid 800 mcg tablet () nitrofurantoin macrocrystal 1 cap PO HS enlarged kidney 12/16/23 12/24/23 History [nitrofurantoin] oxycodone 1 tab PO Q6H PRN kidney stones 12/16/23 12/24/23 History omeprazole 20 mg capsule,delayed 20 mg PO DAILY 12/24/23 12/24/23 History release ondansetron HCl 4 mg tablet 4 mg PO DIRECTED PRN Nausea And 12/24/23 12/24/23 History Vomiting tamsulosin 0.4 mg capsule 0.4 mg PO DAILY PRN Other 12/24/23 12/24/23 History Patient History Medical History Ovarian cyst Kidney stones GERD (gastroesophageal reflux disease) Surgical History Hx of cystoscopy w/ stent-04/2022 [facility] 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 History of colonoscopy History of appendectomy 03/16/19: Grade 2 view, Veloz 2, ETT 7.5 atraumatic x 1. History of wisdom tooth extraction PONV (postoperative nausea and vomiting) Status post laparoscopic procedure REMOVED uterine surface endometriotic tissue Previous section 02/20/2017 Family History Uncle Diabetes Mother Kidney stones Breast cancer Hx of cholecystectomy Hypertension Father Hx of cholecystectomy Other No family history of adverse response to anesthesia Denies family history of Ovarian cancer Prostate cancer Colorectal cancer Social History Smoking Status: Never smoker Second Hand Exposure: No; Do You Dip or Chew Tobacco: No; Hx Alcohol Use: No Hx Substance Use: No Preferred Language: Swiss Communication Ability: Effective Turnstile Attendant Required: No Beliefs That Will Affect Care: None marital status: marital status details: Umberto gillespie ( [phone] Current Living Situation: Family Current Living Situation Comment: FOB and 7 year old son current occupational status: employed 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 Other Information That Helps Us Care for You: No Feels Safe at Home: Yes Safety Concerns: Feels Safe At This Time Assistive Devices: Contacts and Glasses Review of Systems Review of Systems: All systems reviewed & are unremarkable except as noted in HPI & below Physical Exam Constitutional: WD/WN, vitals as above Psychiatric: A+Ox3, euthymic affect Genitourinary: OB Exam Abdomen: + fundal height (term) OB Exam Monitor Tracing: + external FHT monitor used, + external uterine monitor used, + categor y I and + normal FHT variability PG Care Time/CCT Total # of Minutes Spent Total Time Spent with Patient: Total time spent is greater than 50% in coordination of care (as documented) at patient's floor/unit and/or counseling patient: Coding Level of Care Code 97357 IN/OBS CONSULT LVL 2,35M Diagnoses Acute right flank pain R10.9
[2023-12-24] MEDS: BETAMETH SOD PHOS/ACETATE IA 6 MG/ML IM SCH (21:21)
[2023-12-24] MEDS: busPIRone 5 MG TAB PO SCH (21:26)
[2023-12-24] MEDS: NITROFURANTOIN MONOHYDRATE 100 MG CAP PO SCH (21:30)
[2023-12-24] MEDS: LACTATED RINGER'S 1,000 ML IV SCH (22:00)
[2023-12-24] MEDS: MoRPHine SULFATE 4 MG/ML 1 ML CARP\\VIAL IV STA (22:17)
[2023-12-24] MEDS: ONDANSETRON INJ 2 MG/ML 2 ML VIAL IV PRN (22:17)
[2023-12-25] MEDS: MoRPHine SULFATE 4 MG/ML 1 ML CARP\\VIAL ONE (00:46)
[2023-12-25] MEDS ORDERED: MoRPHine SULFATE PF 1 MG/ML 10 ML AMP/VIAL ONE (07:41)
[2023-12-25] MEDS ORDERED: ONDANSETRON INJ 2 MG/ML 2 ML VIAL ONE (07:43)
[2023-12-25] MEDS ORDERED: DEXAMETHASONE SOD INJ 4 MG/ML VIAL ONE ×2 (07:43→12:02)
[2023-12-25] MEDS ORDERED: METOCLOPRAMIDE HCL INJ 5 MG/ML 2 ML VIAL ONE (07:43)
[2023-12-25] MEDS ORDERED: OXYTOCIN 10 UNITS/ML VIAL ONE (07:43)
[2023-12-25] MEDS ORDERED: PRENATAL VITAMIN 1 TAB PO SCH (09:00)
[2023-12-25] MEDS ORDERED: PHENYLEPHRINE 100MCG/ML 10ML SYR IV ONE (10:28)
[2023-12-25] MEDS ORDERED: ePHEDrine sulfate 50 MG/5 ML SYR ONE (10:28)
[2023-12-25] MEDS ORDERED: MIDAZOLAM HCL 1 MG/ML 2ML VIAL ONE (11:38)
[2023-12-25] MEDS ORDERED: SUCCINYLCHOLINE CHLORIDE 20 MG/ML 10 ML VIAL IV ONE (12:02)
[2023-12-25] MEDS ORDERED: fentaNYL citrate PF 100 MCG/2 ML VIAL ONE (12:02)
[2023-12-25] MEDS ORDERED: LIDOCAINE 2% 2 ML VIAL/AMP(20MG/ML) INFIL ONE (12:02)
[2023-12-25] MEDS ORDERED: PROPOFOL IV EMULSION 10 MG/ML 20 ML VIAL IV ONE ×3 (12:02→13:02)
[2023-12-25] MEDS ORDERED: GLYCOPYRROLATE 0.2 MG/ML VIAL ONE (13:14)
[2023-12-25] MEDS ORDERED: diphenhydrAMINE 50 MG/ML VIAL ONE (13:14)
--- NOTE | 2023-12-25 13:46 | Fluoroscopy Report ---
FL retrograde includes kub CLINICAL HISTORY: B/ STENTS TECHNIQUE: 2 views were obtained with the C-arm in the OR with the above procedure. Total fluoroscopy time was 52.3 seconds. Radiation dose was 12.1 mGy. Comparison: Comparison is made to renal ultrasound 12/24/2023 FINDINGS/IMPRESSION: Intraoperative images were obtained of bilateral nephroureteral stent placement. In the final images, the stent is in satisfactory position. Please correlate with intraoperative fluoroscopy and operative report. ACT 112: Negative or not required by law. Electronically signed by: Alexander Gutierrez M.D. 12/25/2023 1:44 PM
[2023-12-25] MEDS ORDERED: IBUPROFEN 600 MG TAB PO PRN (14:44)
[2023-12-25] MEDS ORDERED: BENZOCAINE 20% SPRY 85 APPLN/85 GM CAN EXT PRN (14:44)
[2023-12-25] MEDS ORDERED: MAGNESIUM HYDROXIDE SUSP 30 ML UDC PO PRN (14:44)
[2023-12-25] MEDS ORDERED: ONDANSETRON INJ 2 MG/ML 2 ML VIAL IV PRN (14:44)
[2023-12-25] MEDS ORDERED: PROMETHAZINE HCL 25 MG in SODIUM CHLORIDE 0.9% 50 ML IV PRN (14:44)
[2023-12-25] MEDS ORDERED: SENNA 8.6 MG TAB PO PRN (14:44)
[2023-12-25] MEDS ORDERED: DIPHTHER/TETAN/PERTUS Vaccine (Tdap, Adol/Adult) 0.5mL IM ONE (14:44)
[2023-12-25] MEDS ORDERED: MEPERIDINE HCL 50 MG/ML CARP IV PRN (14:44)
[2023-12-25] MEDS ORDERED: diphenhydrAMINE 50 MG/ML VIAL IV PRN (14:44)
[2023-12-25] MEDS ORDERED: HYDROCORTISONE ACETATE 25 MG SUPP PR PRN (14:44)
[2023-12-25] MEDS ORDERED: NALOXONE HCL 0.08 MG in SYRINGE 1.8 ML IV PRN (14:58)
[2023-12-25] MEDS ORDERED: ePHEDrine sulfate 50 MG/ML AMP IV PRN (14:58)
[2023-12-25] MEDS ORDERED: PROMETHAZINE HCL 12.5 MG in SODIUM CHLORIDE 0.9% 50 ML IV PRN (14:58)
[2023-12-25] MEDS ORDERED: LACTATED RINGER'S 500 ML IV PRN (14:58)
[2023-12-25] MEDS ORDERED: NALOXONE HCL 0.4 MG/1 ML VIAL/CARP IV PRN (14:58)
[2023-12-25] MEDS ORDERED: NALBUPHINE HCL 5 MG in SYRINGE 0 ML IV PRN (14:58)
[2023-12-25] MEDS ORDERED: NALOXONE HCL 1 MG in SODIUM CHLORIDE 0.9% 1,000 ML IV PRN (14:58)
[2023-12-25] MEDS ORDERED: DC INTRASPINAL MORPHINE SCH (15:00)
[2023-12-25] MEDS ORDERED: NO NARCOTICS OR SEDATIVES SCH (15:00)
[2023-12-25] MEDS: KETOROLAC 30 MG/ML VIAL ONE (15:24)
--- NOTE | 2023-12-25 15:34 | Operative Report ---
PG Post Operative Report Pre & Post Diagnosis Bilateral Stones, Recurrent Infection, , Left Ureteral Stone Same Operation Date: 12/25/23 12:00 <No data on this case meets the specified criteria> I identified the patient and participated in the time-out.: Yes Procedure Cystoscopy with bilateral retrograde pyelogram and Stent placement Left Ureteroscopy with laser lithotripsy and stone basket extraction Right Ureteroscopy with laser lithotripsy and stone basket extraction Operation Date: 12/25/23 12:00 <No data on this case meets the specified criteria> Surgeon Edin Treadwell, II, DO Device Processing Engineer None Estimated Blood Loss 1 Findings Consistent with Post-Op Diagnosis Left Ureteral and Renal stones destroyed to dust and small fragments with large fragments removed. Right Renal Stones destroyed to dust and small fragments and larger fragments removed. Bilateral hydronephrosis Specimens Left Ureteral Stone Fragments Right Renal Stone Fragments Urine Left Kidney for Microanalysis/Culture Drains 16 Fr Silicon Catheter Bilateral 4.8 Fr Multilength stents on TETHER Anesthesia Type General Complications none Disposition Disposition: Recovery Room Indications Patient with bothersome stones throughout her . Had underwent C- section earlier in the morning on 12/25/2023. Had considerable severe multidrug- resistant infections throughout the entire that required broad- spectrum antibiotics including utilization of daptomycin for vancomycin- resistant Enterococcus. Extensive conversation was had with the patient after the . She was recovering well but was extremely anxious about possible pain and discomfort with stent placement. Discussed extensively concerns related to multidrug-resistant infections and possible development of sepsis or pyelonephritis with ongoing significant stone disease. Most recent ultrasound had shown continued large stone burden bilaterally. Risks and benefits discussed at length. Patient had a spinal anesthetic with the . Was still experiencing the anesthetic from that. Description of Procedure Patient was consented and brought back to the operating room. Patient was placed under anesthesia in the supine position and moved to the dorsal lithotomy position. Patient was prepped and draped in the regular sterile fashion. A time out was completed identifying the correct patient and procedure. Preoperative antibiotics were given with daptomycin as this has been sensitive on previous cultures. Patient was still experiencing the effects from the spin al anesthetic used during the . A 30degree Cystoscope was placed into the bladder and the entire bladder was examined. The UO's were identified. Attention was taken to the left ureter first. The UO was cannulized with a catheter and advanced to the renal pelvis and a urine sample was taken. This was sent for culture. Contrast was then selected and a retrograde pyelogram was completed. A wire was then placed. A second safety wire was placed. The flexible ureteroscope was taken into the ureter. A small stone was discovered in the ureter near the UPJ. The entire ureter was examined. The ureter appeared to be dilated likely secondary to the compression from the uterus. A laser fiber was selected and the stones were pulverized to dust and small fragments. Larger fragments were grasped and removed and sent for analysis. The scope was then advanced into the renal pelvis. The stones were identified. Numerous small stones were noted in the renal pelvis. Appear to be in clusters which would likely explain the larger stones. That were appearing on ultrasound. The laser was once again selected and the stones were pulverized to dust and small fragments. All of the small stones were able to be easily broken up without major issue. The entire area was once again examined. No residual large fragments or areas of concern were noted. The scope was slowly removed with the wire left in place. Contrast was placed through the scope for a pyelogram to assist in stent placement. The entire ureter was examined as the scope was slowly removed. No obstructions or other areas of concern were noted. With the wire in place on the LEFT , a 4.8 Fr Double J stent was placed on TETHER. It was confirmed with fluoroscopy. With the left sided treated. Attention was then taken to the right. The right UO was cannulized with a catheter and a retrograde pyelogram was completed. A wire was then placed. A second safety wire was placed. The flexible ureteroscope was taken into the ureter. The entire ureter and renal pelvis were examined. The stones were identified. Much larger stones were discovered in the right renal pelvis. Numerous stones were seen. A laser fiber was selected and the stones were pulverized to dust and small fragments. Larger fragments were grasped and removed and sent for analysis. Extensive basketing was completed in order to remove the majority of the fragments. The entire area was once again examined. No residual large fragments or areas of concern were noted. The scope was slowly removed with the wire left in place. Contrast was placed through the scope for a pyelogram to assist in stent placement. The entire ureter was examined as the scope was slowly removed. No obstructions or other areas of concern were noted. With the wire in place on the RIGHT, a 4.8 Fr Double J stent was placed on TETHER. It was confirmed with fluoroscopy. The Tethers were then secured to the skin of the mons pubis. With the stents in place and secured to the skin on the mons pubis, the bladder was emptied. The scope was removed. A 16 Fr Silicon Arteaga Catheter was then placed. The patient was cleaned, aroused from anesthesia, and transferred to the pacu in stable condition having tolerated the procedure well with no complications. I was present and participated in all aspects of the procedure. The patient will be monitored in the PACU until transferred. Plan to remove catheter tomorrow per protocol with labor and delivery floor. Maintain stents and re-evaluate. Will try to maintain for few days if tolerable and remove bedside if still inpatient or by nursing in office. I attest to the content of the Intraoperative Record and any orders documented therein. Any exceptions are noted below.
[2023-12-25] MEDS: OXYTOCIN 20 UNITS/LR 1,002 ML IV SCH (15:35)
[2023-12-25 16:45] LABS: Albumin Globulin Ratio 1.1 (0.9-2); Albumin Level 3.4 gm/dl (3.4-5.0); BUN Creatinine Ratio 12.3 (10-20); Bilirubin,Total 0.5 mg/dl (0.2-1.0); Calcium 9.1 mg/dl (8.6-10.3); Creatinine Clr Calc Pharmacy 151.2 ml/min; Est GFR (African American) 138.1 ml/min; Est GFR (Non-African American) 119.1 ml/min; Globulin 3.1 gm/dl (2.5-4.0); Potassium 3.9 mmol/L (3.5-5.1); Total Protein 6.5 gm/dl (6.0-8.3)
[2023-12-25] MEDS: MoRPHine SULFATE 2 MG/ML CARP IV PRN (16:56)
[2023-12-25] MEDS: SIMETHICONE 80 MG CHEW PO SCH (16:57)
[2023-12-25] MEDS: diphenhydrAMINE 50 MG/ML VIAL IV PRN (16:59)
[2023-12-25] MEDS: ONDANSETRON INJ 2 MG/ML 2 ML VIAL IV PRN (17:01)
[2023-12-25 17:26] LABS: Cord Venous Blood HCO3 19 mmol/L (18.4-26.8); Cord Venous Blood PO2 < 20 mmHg (14.1-43.3); O2 Saturation Cord Venous Bld < 60.0 % (<68)
[2023-12-25 17:29] LABS: Base Excess Cord Arterial Bld -11.6 mEq/L (-9-1.8); CO2 Cord Arterial Blood 65 mmHg (39.1-73.5); HCO3 Cord Arterial Blood 19 mmol/L (19.7-28.5); Oxygen Sat Cord Arterial Blood < 60.0 % (<60); PO2 Cord Arterial Blood < 20 mmHg (4.1-31.7); pH Cord Arterial Blood 7.08 (7.1-7.38)
[2023-12-25 17:30] LABS: Base Excess Cord Venous Blood -9.8 mEq/L (-7.7-1.9); Cord Venous Blood PCO2 50 mmHg (30.4-57.2); Cord Venous Blood pH 7.18 (7.20-7.44)
--- OUTSIDE RECORDS SUMMARY | 2023-12-25 18:55 | External Medical Summary | Summary of Care ---
Author Name Unknown Organization [facility] Address [address] [place] [address] Phone [phone] Care Team Providers Care [employer] Supervisor Name Role Phone Dimas oDty DO Primary Care Provider [phone] Reason for Visit * Reason Comments Urinary Tract Infection Symptoms Burning with urination and hematuria started last night Other Presently 36 weeks p regnant and has confirmed kidney stones presently that she needs surgery for but has to wait until after childbirth Encounter Details Date Type Department Care Team (Late st Contact Info) Description 12/24/2023 11:30 AM EDT [facility], [place] [address] [facility] [address] [place], [place] [id number] Iglesia oHrne PA-C [address] [place] [address] UTI symptoms* Allergies Active Allergy Reactions Criticality Noted Date Comments Prochlorperazine Psych complications 06/12/2020 Probably dystonic reaction. The patient does tolerate Phenergan Morphine Hives Low 03/20/2019 Pt feels the rash may have been from tape at the IV site. Sulfamethoxazole Hives High 03/03/2021 Trimethoprim Hives High 05/02/2018 documented as of this encounter (statuses as of 12/24/2023) Medications Medication Sig Dispensed Refills Start Date End Date Status Acetaminophen 325 MG Oral Capsule Take 325 mg by mouth every 6 hours as needed for Pain, Mild. 07/15/2023 Active [facility] Gummy 0.4-113.5 MG Oral Tablet Chewable Take 1 Tablet by mouth in the morning. Active Ferrous Sulfate 325 (65 Fe) MG Oral Tablet (Feosol)Indication s:History of gastric bypass,Other iron deficiency anemia 1 daily 09/02/2023 Active Sertraline HCl 100 MG Oral Tablet (Zoloft)Indication s:Recurrent major depressive disorder, in full remission (HCC) TAKE 1 & 1/2 TABLETS BY MOUTH IN THE MORNING. 30 Tablet 11 11/26/2023 Active Nitrofurantoin Monohyd Macro 100 MG Oral Capsule (Macrobid) Take 1 Capsule by mouth every night at bedtime. With food. Until gone. 37 Capsule 12/09/2023 01/15/2024 Active Ondansetron HCl 4 MG Oral Tablet Take 1 Tablet by mouth every 8 hours as needed for Nausea. 20 Tablet 12/09/2023 Active metroNIDAZOLE 500 MG Oral Tablet (Flagyl) Take 1 Tablet by mouth in the morning and 1 Tablet before bedtime. X 7 days until gone.. 14 Tablet 12/11/2023 Active Additional Information Patient not taking.Reported on 12/24/2023 busPIRone HCl 10 MG Oral Tablet (Buspar) Take 1 Tablet by mouth in the morning. 30 Tablet 12/18/2023 Active Omeprazole 20 MG Oral Capsule Delayed Release (PriLOSEC)Indicati ons:Gastroesophage al reflux disease with esophagitis and hemorrhage Take 1 Capsule by mouth in the morning. 30 Capsule 12/18/2023 Active Tamsulosin HCl 0.4 MG Oral Capsule (Flomax) Take 1 Capsule by mouth in the morning. 28 Capsule 12/18/2023 Active Cyclobenzaprine HCl 10 MG Oral Tablet (Flexeril) Take 1 Tablet by mouth every 6 hours as needed for Pain, Moderate. 10 Tablet 12/18/2023 Active oxyCODONE-Acetamin ophen 5-325 MG Oral Tablet (Percocet)Indicati ons:Kidney stone Take 1 Tablet by mouth every 8 hours as needed for Pain, Severe. Space out to try to decrease dose with . 30 Tablet 12/18/2023 Active Cefdinir 300 MG Oral Capsule (Omnicef) Take 1 Capsule by mouth in the morning and 1 Capsule before bedtime. Do all this for 7 days. 14 Capsule 12/24/2023 12/31/2023 Active documented as of this encounter (statuses as of 12/24/2023) Active Problems Problem Noted Date Diagnosed Date Gastroesophageal reflux dise ase with esophagitis and hemorrhage 12/18/2023 Unspecified ovarian cyst, left side 12/18/2023 Anemia during in third trimester 12/09 32 weeks gestation of 12/08/2023 Bilateral nephrolithiasis 12/08/2023 with nephrolithiasis in third trimeste r 12/08/2023 Dysuria 11/28/2023 with 32 completed weeks gestation [...] complication 08/13/2023 History of gestational hypertension 08/13/2023 H/O gastric bypass 08/13/2023 VRE (vancomycin resistant enterococcus) culture positive 08/10/2023 Encounter for adjustment and management of vascular access device 08/07/2023 Acute pyelonephritis 08/01/2023 Renal colic 08/01/2023 Right flank pain 08/01/2023 Right flank pain 08/01/2023 UTI (urinary tract infection) 08/01/2023 Iron deficiency 08/01/2023 Hyperparathyroidism 08/01/2023 Hydronephrosis of right kidney 08/01/2023 Depression 08/01/2023 Cyst of ovary 08/01/2023 Intestinal postoperative nonabsorption Other dietary vitamin B12 deficiency anemia 10/06 History of gastric bypass 02/11/2022 Obesity, Class III, BMI 40-49.9 (morbid obesity) 10/05/2021 NAFLD (nonalcoholic fatty liver disease) 022 Menorrhagia with regular cycle 04/16/2021 [facility] OTHER*[id number] 01/24/2021 Gastroesophageal reflux disease with esophagitis 01/04/2019 [...] as of this encounter (statuses as of 12/24/2023) Resolved Problems Problem Noted Date Diagnosed Date Resolved Date Retention of urine 08/01/2023 Hematuria 08/01/2023 08/01/2023 Finding of above normal [...] as of this encounter (statuses as of 12/24/2023) Immunizations Name Administration Dates Next Due COVID-19 mRNA, LNP-s, No Pre serve, 2-Dose Series ([facility]) 04/03/2021,06/26/2020,06/05/2020 DTaP Dipth/Tet/Acell Pertussis (Infanrix), Peds 01/06/2017,09/28/1997,09/18/1994,08/15,1993,1993 HIB PRP-T, 4 Dose, PF, IM (H iberix, ActHib) 05/15/1994,1993,1993,04/26 Haemophilius B (HIB), unspecified 1993,1993,1993,04/26 Hepatitis B, [...] have concerns for your saf ety? No 12/07/2023 Do you have concerns for you r family's safety? (Household - for ages 0-17 years) Not on file 12/07/2023 Utilities Answer Date Recorded Do you have trouble paying y our heating, water, or electric bill? No 12/07/2023 Is your family able to pay t he heat, water, or electric bill? (Household - for ages 0-17 years) Not on file 12/07/2023 Does your family have access to good internet? (Household - for ages 0-17 years) Not on file 12/07/2023 Employment Status Answer Date Recorded Are you [...] to medical visits or work? Never True 12/07/2023 Does your family have a hard time getting a ride to doctors visits? (Household - for ages 0-17 years) Not on file 12/07/2023 Has lack of transportation k ept you from medical appointments, meetings, work, or from getting things needed for daily living? Check all that apply. No 12/07/2023 Do you (or your family) have trouble finding or paying for a ride (transportation)? (Household - for ages 0-17 years) Not on file 12/07/2023 Housing Stability Answer Date Recorded Do you currently live in a s helter or have no steady place to sleep at night? No 12/07/2023 READ ONLY Do you think you a re at risk of becoming homeless? No 12/07/2023 Does your family worry about paying for your home or becoming homeless? (Household - for ages 0-17 years) Not on file 0 12/07/2023 Are you homeless or worried that you might be in the future? No 12/07/2023 Are you (or your family) rikki eless or worried that you might be in the future? (Household - for ages 0-17 years) Not on file Food Insecurity Answer Date Recorded Do you need food for this week? No 12/07/2023 Are you able to get enough f ood for your family? (Household - for ages 0-17 years) Not on file 12/07/2023 Does your family need food t his week? (Household - for ages 0-17 years) Not on file 12/07/2023 Do you always have enough fo od for your family? (Household - for ages 0-17 years) Not on file 12/07/2023 Estimated Date of Delivery Comme nts Yes [...] Sign Reading Time Taken Comments Blood Pressure 108/66 12/24/2023 11:15 AM EDT Pulse 121 12/24/2023 11:15 AM EDT Temperature 36.6 C (97.9 F) 12/24/2023 11:15 AM E DT Respiratory Rate 18 12/24/2023 11:15 AM EDT Oxygen Saturation 100% 12/24/2023 11:15 AM EDT Inhaled Oxygen Concentration - - Weight 101.6 kg (224 lb) 12/24/2023 11:15 AM EDT Height 167.6 cm (5' 6") 12/24/2023 11:15 AM EDT Body Mass Index 36.15 12/24/2023 11:15 AM EDT documented in this encounter Functional Status [...] as of this encounter Progress Notes * Iglesia Horne PA-C - 12/24/2023 11:52 AM EDT [facility] Basic Exam HPI: Zan Snell is a 28 year old year old female who presents for evaluation of Uti symptoms(burning with frequency) starting last night where she is already on prophylactic macrobid. Patientis 36 weeks where she has a recent hx of kidney stones. Has a 10 mm stone on right side. Patient has a hx of admission due to kidney stones while . No fevers. PAST MEDICAL HISTORY: Past Medical History: Diagnosis Date Abdominal pain [...] major depressive disorder, in full remission (HCC) 01/04/2019 Past Surgical History: Procedure Laterality Date COLONOSCOPY, DIAGNOSTIC (RECTUM) 03/17/2014 2 hyperplastic polyps, repeat in 5 yrs/COLONOSCOPY FLEXIBLE PROXIMAL DIAGNOSTIC performed by Becki Armstrong DO at [facility] COLONOSCOPY, DIAGNOSTIC (RECTUM) N/A 12/28/2019 normal/recall 5 years/COLONOSCOPY FLEXIBLE PROXIMAL DIAGNOSTIC performed by Aubree Armstrong DO at OR [facility] CREATE EARDRUM OPENING,LOCAL ANESTH 1994 CYSTO/URETERO W/LITHOTRIPSY Right 06/20/2020 CYSTOURETHROSCOPY URETEROSCOPY WITH LITHOTRIPSY AND STENT INSERTION performed by Ming Veloz MD at OR [facility] CYSTOSCOPY/URETERAL CATHETER Left 09/27/2019 CYSTOURETHROSCOPY WITH URETERAL CATHETER performed by Sylvain Krause Jr., MD at OR [facility] EGD, FLEXIBLE, DIAGNOSTIC N/A 03/21/2021 gastritis/biopsies from stomach show mild gastritis/ESOPHAGOGASTRODUODENOSCOPY (EGD), FLEXIBLE, TRANSORAL, DIAGNOSTIC performed by Aubree Armstrong DO at OR [facility] EGD, FLEXIBLE, DIAGNOSTIC N/A 10/04/2021 ESOPHAGOGASTRODUODENOSCOPY (EGD), FLEXIBLE, TRANSORAL, DIAGNOSTIC performed by Lobito Carolina MD at [facility] EGD, FLEXIBLE, DIAGNOSTIC N/A 03/05/2022 ESOPHAGOGASTRODUODENOSCOPY (EGD), FLEXIBLE, TRANSORAL, DIAGNOSTIC performed by Lobito Carolina MD at [place] [facility] [place] EXPLORATION OF ABDOMEN 11/2013 for endometriosis INFORMATION 02/20/2017 c/sec LAPAROSCOPE PROCEDURE, LIVER N/A 10/04/2021 UNLISTED LAPAROSCOPIC PROCEDURE LIVER performed by Lobito Carolina MD [place] [facility] [place] LAPAROSCOPIC GASTRIC BYPASS/KELBY-EN-Y N/A 10/04/2021 LAPAROSCOPIC GASTRIC RESTRICTIVE BYPASS KELBY EN Y performed by Lobito Carolina MD at [facility] LAPAROSCOPY; CHOLECYSTECTOMY 06/10/2018 LAPAROSCOPY;APPENDECTOMY 03/16/2019 MISCELLANEOUS ORDER ([facility] ONLY) broken ankle left - no hardware Social History Tobacco Use Smoking status: Never Smokeless tobacco: Never Substance Use Topics Alcohol use: No Vaping/E-Cigarette Use Vaping/E-Cigarette Use Never User Passive Exposure No Counseling Given? No Vaping/E-Cigarette Substances Nicotine No Other No Flavoring No THC No Cannabidiol (CBD) No Vaping/E-Cigarette Devices Disposable No Pre-filled or Refillable Cartridge No Refillable Tank No Pre-filled Pod No Patient Active Problem List Diagnosis Renal stones Uterine anomaly Gastroesophageal reflux disease with esophagitis Recurrent major depressive disorder, in full remission (HCC) Irritable bowel syndrome with both constipation and diarrhea [facility] OTHER*[id number] Menorrhagia with regular cycle NAFLD (nonalcoholic fatty liver disease) Obesity, Class III, BMI 40-49.9 (morbid obesity) (HCC) History of gastric bypass Intestinal postoperative nonabsorption Other dietary vitamin B12 deficiency anemia Acute pyelonephritis Renal colic Right flank pain Right flank pain UTI (urinary tract infection) Iron deficiency Hyperparathyroidism (HCC) Hydronephrosis of right kidney Depression Cyst of ovary Encounter for adjustment and management of vascular access device VRE (vancomycin resistant enterococcus) culture positive 16 weeks gestation of Low grade squamous intraepithelial lesion (LGSIL) on cervical Pap smear Cervical high risk human papillomavirus (HPV) DNA test positive Previous section complicating , antepartum condition or complication History of gestational hypertension H/O gastric bypass Calculus of kidney affecting in third trimester Hyperemesis affecting , antepartum Irregular uterine contractions Dysuria with 32 completed weeks gestation 32 weeks gestation of Bilateral nephrolithiasis with nephrolithiasis in third trimester Anemia during in third trimester Gastroesophageal reflux disease with esophagitis and hemorrhage Unspecified ovarian cyst, left side Review of patient's allergies indicates: Allergen Reactions Sulfamethoxazole Hives Trimethoprim Hives Compazine [Prochlorperazine] Psych complications Probably dystonic reaction. The patient does tolerate Phenergan Morphine Hives Pt feels the rash may have been from tape at the IV site. Current Outpatient Medications Medication Sig Dispense Refill Acetaminophen 325 MG Oral Capsule Take 325 mg by mouth every 6 hours as needed for Pain, Mild. [facility] Gummy 0.4-113.5 MG Oral Tablet Chewable Take 1 Tablet by mouth in the morning. Ferrous Sulfate 325 (65 Fe) MG Oral Tablet (Feosol) 1 daily Sertraline HCl 100 MG Oral Tablet (Zoloft) TAKE 1 & 1/2 TABLETS BY MOUTH IN THE MORNING. 30 Tablet 11 Nitrofurantoin Monohyd Macro 100 MG Oral Capsule (Macrobid) Take 1 Capsule by mouth every night at bedtime. With food. Until gone. 37 Capsule 0 Ondansetron HCl 4 MG Oral Tablet Take 1 Tablet by mouth every 8 hours as needed for Nausea. 20 Tablet 0 busPIRone HCl 10 MG Oral Tablet (Buspar) Take 1 Tablet by mouth in the morning. 30 Tablet 5 Omeprazole 20 MG Oral Capsule Delayed Release (PriLOSEC) Take 1 Capsule by mouth in the morning. 30Capsule 5 Tamsulosin HCl 0.4 MG Oral Capsule (Flomax) Take 1 Capsule by mouth in the morning. 28 Capsule 5 Cyclobenzaprine HCl 10 MG Oral Tablet (Flexeril) Take 1 Tablet by mouth every 6 hours as needed forPain, Moderate. 10 Tablet 0 oxyCODONE-Acetaminophen 5-325 MG Oral Tablet (Percocet) Take 1 Tablet by mouth every 8 hours as needed for Pain, Severe. Space out to try to decrease dose with . 30 Tablet 0 Cefdinir 300 MG Oral Capsule (Omnicef) Take 1 Capsule by mouth in the morning and 1 Capsule before bedtime. Do all this for 7 days. 14 Capsule 0 metroNIDAZOLE 500 MG Oral Tablet (Flagyl) Take 1 Tablet by mouth in the morning and 1 Tablet beforebedtime. X 7 days until gone.. (Patient not taking: Reported on 12/24/2023) 14 Tablet 0 No current facility-administered medications for this visit. Nursing Notes and Vital Signs reviewed. BP 108/66 | Pulse 121 | Temp 36.6 C (97.9 F) (Tympanic) | Resp 18 | Ht 1.676 m (5' 6") | Wt 101.6 kg (224 lb) | LMP 04/17/2023 (Approximate) Comment: due date 01/22/24 | SpO2 100% | BMI 36.15 kg/m | BSA 2.17 m Physical Exam Vitals and nursing note reviewed. Constitutional: General: She is not in acute distress. Appearance: Normal appearance. She is not ill-appearing or toxic-appearing. HENT: Head: Normocephalic. Pulmonary: Effort: Pulmonary effort is normal. Abdominal: General: Abdomen is protuberant. Tenderness: There is right CVA tenderness. Comments: Appropriately gravid Neurological: Mental Status: She is alert. Psychiatric: Behavior: Behavior is cooperative. ASSESSMENT: UTI symptoms (Primary) - URINALYSIS, POINT OF CARE (ENTER/EDIT) - CULTURE, URINE, QUANTITATIVE Other orders - Cefdinir 300 MG Oral Capsule (Omnicef); Take 1 Capsule by mouth in the morning and 1 Capsule before bedtime. Do all this for 7 days. Plan: Patient has her son with her where she can not go to ER currently as she has no one to watch him until this afternoon. It was discussed with patient her options. Patient states that [facility] would possibly perform a C- section on her at 36 weeks if her symptoms worsen with her current issue with her kidney stone. It was discussed that patient should [facility] due to possible risk of sepsis with a current Uti and 10 mm stone and . Will prescribe cefdinir for patient to take in the interim this morning where the plan is for her to go to the ER later today. Patient agreed with plan. Iglseia Horne PA-C [facility] [address] [facility] [address] [facility] [address] documented in this encounter Nursing Notes * Osiris Freeman LPN - 12/24/2023 11:22 AM EDT Zan Snell is a 28 year old female who presents to walk-in clinic today complaining of Chief Complaint Patient presents with Urinary Tract Infection Symptoms Burning with urination and hematuria started last night Other Presently 36 weeks and has confirmed kidney stones presently that she needs surgery for but has to wait until after childbirth Tried-tylenol and macrobid Effectiveness - some help Patient is accompanied by child for today's visit. documented in this encounter Plan of Treatment Upcoming Encounters Date Type Department Care Team (Late st Contact Info) Description 02/16/2024 10:00 AM EDT Office Visit [facility] [address] [place] [id number] Dimas Doty, DO [address] [place] [id number] Pending Results Name Type Priority Associated Diagnoses Date /Time CULTURE, URINE, QUANTITATIVE Lab Routine UTI symptoms 12/24/2023 11:33 AM EDT Scheduled Procedures Name Priority Associated Diagnoses Date/Ti me COLONOSCOPY FLEXIBLE PROXIMA L DIAGNOSTIC Recall History of colonic polyps Health Maintenance Due Date Last Done Comments Pap Smear 04/09/2020 04/09/2017, 09/21/2014 Depression Monitoring 05/30/2020 05/30/2019 COVID-19 Vaccine ( season) 2023 04/03/2021, 06/26/2020, 06/05/2020 Cervical Cancer Screening 2023 HPV/Co-Test 2023 Influenza Vaccine (FLU shot) (#1) 2024 04/06/2023, 03/20/2023, 03/20/2023, Additional history exists DTaP,Tdap,and Td Vaccines (11 - Td or Tdap) 01/06/2027 01/06/2017, 01/06/2017, 01/06/2017, Additional history exists Colonoscopy 2038 12/28/2019, 12/07, 03/17/2014, Additional history exists MENINGOCOCCAL (MENACTRA/MENVEO) Completed 01/08/2011, 01/08/2011, 12/15/2007, Additional history exists Hepatitis B Vaccine Completed 02/08/2014, 1993, 1993, Additional history exists RETIRED - COLONOSCOPY-EVERY 5 YRS AGES 18-100 Discontinued 12/28/2019, 12/28/2019, 03/17/2014, Additional history exists HPV (Gardasil) Vaccine Aged Out No lo nger eligible based on patient's age to complete [...] Comments URINALYSIS, POINT OF CARE (ENTER/EDIT) Routine 12/24/2023 11:27 AM EDT UTI symptoms documented in this encounter Results * (ABNORMAL) URINALYSIS, POINT OF CARE (ENTER/EDIT) (12/24/2023 11:27 AM EDT) Color, Urine Yellow Yellow or Light Yellow Clarity, Urine Clear Clear Glucose, Urine Negative Negative mg/dL Bilirubin, Urine Negative Negative Ketone, Urine Negative Negative mg/dL Specific [place], Urine 1.015 1.003 - 1.030 Blood, Urine Negative Negative pH, Urine 6.0 5.0 - 7.5 units Protein, Urine Negative Negative mg/dL Urobilinogen, Urine 0.2 0.2 - 1.0 mg/dL Nitrite, Urine Negative Negative Esterase, Urine Small Negative Urine 12/24/2023 11:2 7 AM EDT Iglesia Horne PA-C LAB POINT OF CARE TE ST ENTER/EDIT ORDERABLES documented in this encounter Visit Diagnoses Diagnosis UTI symptoms- Primary Other symptoms involving urinary system documented in this encounter Advance Directives * Full Code (Latest Code Status on File) Date Activated Date Inactivated Comments 12/07/2023 11:01 PM 12/10/2023 12:31 AM This order r eflects the patients wishes and were consensually agreed upon. Question Answer Comments Discussion of Advance Direct robinson occurred with: Not Discussed due to patient's condition * Full Code Date Activated Date Inactivated Comments 08/25/2023 6:21 [...] Health Care Power of Attor gab? No Care Teams [employer] Supervisor Relationship Specialty Start Date End Date Dimas Doty DO [address] [place] [address] PCP - General Family Medicine 06/09/19 documented as of this encounter
[2023-12-25] MEDS: KETOROLAC 30 MG/ML VIAL IV PRN (19:31)
[2023-12-25] MEDS: TAMSULOSIN HCL 0.4 MG CAP PO PRN (19:37)
[2023-12-25] MEDS: LACTATED RINGER'S 1,000 ML IV SCH (20:43)
[2023-12-25] MEDS: DOCUSATE SODIUM 100 MG CAP PO SCH (21:02)
[2023-12-25] MEDS: HYDROmorphone INJ 0.5 MG/0.5 ML SYR IV ONE (22:15)
[2023-12-25 23:10] LABS: Hematocrit (blood only) 34.2 % (37.0-47.0); Hemoglobin 10.6 g/dl (12.0-16.0); Mean Corpuscular Hemoglobin 25.7 pg (25.0-34.0); Mean Corpuscular Volume 82.8 fL (80.0-100.0); Mean Platelet Volume 11.3 fL (9.4-12.4); Platelet Count 309 K/uL (130-400); RDW Coefficient of Variation 23.6 % (11.5-14.5); RDW Standard Deviation 66.6 fL (36.4-46.3); Red Blood Count 4.13 M/uL (4.20-5.40); White Blood Count 10.03 K/ul (4.8-10.8)
[2023-12-25 23:21] LABS: Anisocytosis Present; Basophils # (auto) 0.01 K/uL (0.00-0.20); Basophils % (auto) 0.1 %; Immature Granulocytes # (auto) 0.09 K/uL (0.01-0.20); Immature Granulocytes % (auto) 0.9 %; Monocytes # (auto) 0.16 K/uL (0.11-0.59); Monocytes % (auto) 1.6 %; Neutrophils # (auto) 9.07 K/uL (1.40-6.50); Neutrophils % (auto) 90.4 %; Polychromasia 1+; Tear Drop Cells 1+
[2023-12-26] MEDS: oxyCODONE/ACETAMINOPHEN 5mg/325mg TAB PO PRN (06:05)
[2023-12-26] MEDS: KETOROLAC 30 MG/ML VIAL IV PRN (07:25)
[2023-12-26] MEDS: FERROUS SULFATE 325 MG TAB PO SCH (07:25)
[2023-12-26] MEDS: PRENATAL VITAMIN 1 TAB PO SCH (07:25)
[2023-12-26] MEDS: PANTOprazole 40 MG TAB PO SCH (07:33)
[2023-12-26] MEDS: SERTRALINE HCL 100 MG TABLET PO SCH (07:33)
--- NOTE | 2023-12-26 07:41 | Urology Progress Note ---
Date of Service December 26, 2023 Assessment & Plan (1) Nephrolithiasis: (2) Renal colic on right side: (3) Acute right flank pain: (4) Previous section: Plan POD 1 s/p Bilateral Ureteroscopy with laser lithotripsy and stone basket extraction. Patient also postop day 1 status post section by gynecology Had extensive stone disease bilaterally with the larger stones on the right and obstructing stone on the left. Was dealing with severe obstructive issues and recurrent UTIs with multidrug resistant infections. Patient has been dealing with ongoing episodes of flank pain most recently specifically on the left. 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 Also reviewed with patient. Discussed patient's plans for breast- feeding moving forward. Reviewed extensively options moving forward. Did discuss trying to remove the stents within the next few days. Will likely plan to maintain them. Patient had catheter removed this morning. Will monitor for spontaneous voiding. Patient is having some significant soreness as well as fatigue. Will likely improve over the next few days. Did discuss possible blooding in the urine. Will plan to have patient follow-up outpatient in the next 3 to 5 days for stent removal. Admission and Anticipated Discharge Date Admission Date: December 25, 2023 Subjective Postop from Cystoscopy with bilateral ureteroscopy, stone treatment, and stent placement for obstruction issues with bilateral stones, severe MDR infections, and recent post-/Delivery by . Patient has been tolerating well. Has noticed some frequency and urgency. Has not had severe pain in the back and flank. Does have occasional burning and irritation. No severe episodes or major changes. No new nausea or vomiting. Had tolerated anesthesia without major problems Medications are going to be adjusted for . Had severe issues with stones during . [place] removed this AM. Patient sore, significant fatigue likely due to combination of intervention. Review of Systems Review of Systems: All systems reviewed & are unremarkable except as noted in HPI & below Physical Exam Physical Exam: General: Alert in no acute distress. HEENT: Normocephalic Atraumatic. Inspection normal. Cranial Nerves 2-12 Grossly intact. Normal inspection of face. Normal inspection of neck. Psychologic: Normal affect. Respiratory: Nonlabored. No use of accessory muscles. No tachypnea or dyspnea. Cardiovascular: No tachycardia Skin: [place] and Dry. No rashes or visible lesions. Extremities/Lymphatics: No edema Abdomen: Soft Non-distended. No rebound or guarding. Wound: Pfannenstiel incision - clean, intact. Ureteral stent tethers secured to skin. Results & Data Vital Signs (Past 12 Hours) Vital Signs Temp Pulse Pulse Resp BP Pulse Ox O2 Del Method 12/26/23 05:25 18 99 12/26/23 05:00 36.8 C 74 18 128/77 99 Room Air 12/26/23 04:30 18 100 12/26/23 03:30 20 99 12/26/23 02:30 18 99 12/26/23 01:30 18 98 12/26/23 01:00 36.7 C 102 H 20 122/66 99 Room Air 12/26/23 00:30 20 99 12/25/23 23:30 20 98 12/25/23 22:29 20 98 12/25/23 21:05 18 99 PG Care Time/CCT Total # of Minutes Spent Total Time Spent with Patient: Total time spent is greater than 50% in coordination of care (as documented) at patient's floor/unit and/or counseling patient: Coding Level of Care Code 28107 SUB INP/OBS CARE 3/50MIN Diagnoses Nephrolithiasis N20.0 Renal colic on right side N23 Acute right flank pain R10.9 Previous section Z98.891
[2023-12-26 07:59] LABS: Basophils # (auto) 0.01 K/uL (0.00-0.20); Basophils % (auto) 0.1 %; Hematocrit (blood only) 28.5 % (37.0-47.0); Hemoglobin 8.9 g/dl (12.0-16.0); Immature Granulocytes # (auto) 0.13 K/uL (0.01-0.20); Immature Granulocytes % (auto) 0.9 %; Lymphocytes # (auto) 1.58 K/uL (1.20-3.40); Lymphocytes % (auto) 11.4 %; Mean Corpuscular Hemoglobin 25.9 pg (25.0-34.0); Mean Corpuscular Hgb Conc 31.2 g/dL (32.0-36.0); Mean Corpuscular Volume 82.8 fL (80.0-100.0); Mean Platelet Volume 10.8 fL (9.4-12.4); Monocytes # (auto) 0.99 K/uL (0.11-0.59); Monocytes % (auto) 7.1 %; Neutrophils # (auto) 11.16 K/uL (1.40-6.50); Neutrophils % (auto) 80.5 %; Platelet Count 256 K/uL (130-400); RDW Coefficient of Variation 23.8 % (11.5-14.5); RDW Standard Deviation 66.9 fL (36.4-46.3); Red Blood Count 3.44 M/uL (4.20-5.40); White Blood Count 13.87 K/ul (4.8-10.8)
--- NOTE | 2023-12-26 08:09 | Obstetrical Progress Note ---
Date of Service <Mitchell Coley DO - Last Filed: 12/26/23 08:15> December 26, 2023 Assessment & Plan <Mitchell Coley DO - Last Filed: 12/26/23 08:15> (1) Encounter for assessment: Patient is PPD 1 s/p RCS followed by stent placement for nephrolithiasis - Eating well, difficulty voiding, not ambulating yet - vitals reviewed and within normal limits - pain still high, medications adjusted to Percocet and Toradol for pain control and breast feeding safety - OOB, ambulation, diet progression as tolerated - Blood type: A+, GBS neg, rubella immune - Plan to discharge tomorrow - After discharge, 6 week follow up with OB visit type: exam and care immediately after delivery Qualified Code(s): Z39.0 - Encounter for care and examination of mother immediately after delivery <María Elena Mcclellan MD - Last Filed: 12/28/23 10:29> (1) Encounter for assessment: Subjective <Mitchell Coley DO - Last Filed: 12/26/23 08:15> 28 yo post- day 1 s/p repeat complicated by nephrolithiasis and followed by stent placement Ambulation: no ambulation yet Voiding: Arteaga recently removed, has not voided yet Passing Gas:: Yes, no BM Diet Tolerance:: regular diet Lochia:: Small Feeding Type:: breast feeding Current Pain Level: 7-8/10 Resting comfortably this AM in NAD. Denies BREWSTER, CP, SOB, N/V/D, LE pain/swelling. Physical Exam <Mitchell Coley DO - Last Filed: 12/26/23 08:15> General: patient resting comfortably, NAD, non-toxic in appearance, answers questions appropriately. Skin: warm, dry, intact HEENT: NC/AT, anicteric sclera, conjunctiva without injection, moist mucus membranes. Heart: +S1/S2, regular, no m/r/g Lungs: equal air entry bilaterally, no rales/rhonchi/wheezes Abd: +BS, soft, NT/ND, uterine fundus firm at umbilicus, caesarean incision clean without erythema Ext: warm, no clubbing/cyanosis or edema, Clayton's neg. Neuro: nonfocal, speech intact, no facial droop, moving all extremities. Results & Data <Mitchell Coley DO - Last Filed: 12/26/23 08:15> Vital Signs (Past 12 Hours) Vital Signs Temp Pulse Pulse Resp BP Pulse Ox O2 Del Method 12/26/23 05:25 18 99 12/26/23 05:00 36.8 C 74 18 128/77 99 Room Air 12/26/23 04:30 18 100 12/26/23 03:30 20 99 12/26/23 02:30 18 99 12/26/23 01:30 18 98 12/26/23 01:00 36.7 C 102 H 20 122/66 99 Room Air 12/26/23 00:30 20 99 12/25/23 23:30 20 98 12/25/23 22:29 20 98 12/25/23 21:05 18 99 Supervising Physician <María Elena Mcclellan MD - Last Filed: 12/28/23 10:29> Co-Signing Physician Notes Resident Physician Supervision Note: I interviewed and examined the patient. Discussed with Dr. Coley and agree with findings and plan as documented in the note. Any exceptions or clarifications are listed here: [ ] Documented By: María Elena Mcclellan MD, FACOG Resident Activity Tracking <Mitchell Coley DO - Last Filed: 12/26/23 08:15> Resident Involvement: Resident Care Provided Care Provided: OB Delivery
[2023-12-26 09:00] LABS: Polychromasia 1+
--- NOTE | 2023-12-26 11:31 | Communication Note ---
Date of Service: December 26, 2023 contacted by nursing for pain management issues. She has been refusing many interventions. Refuses to walk. Percocet not providing adequate pain relief. Took one and requested more meds an hour later. Last dose of Toradol, which she notes helps alot, at 7:25. Reluctant to get up. Discussed case with both Dr. Treadwell and peds as she really wants to breast feed. If we go with oxybutinin will need to watch for drowsiness. She notes she thinks she will be ok without. He does not think flomax will help currently. Patient notes when she has stents previously, dilauded helped most, also oxyIR. Plan to d/c percocet. Change to 625mg po tylenol and dilauded 4mg q8hrs po. Continue toradol IV. Also having reflux, had protonix this am. Will order tums. Tolerating regular diet without n/v. Appears comfortable lying in bed when I come in to talk with her. Stressed the need to ambulate for gerd and also per Dr. Treadwell pain man agements with stents. Discussed goal of at least 48 hrs before removing stents which would be noon on Thursday. However if she really desires stent removal , will call Dr. Harrington. Questions answered to the best of my ability.
[2023-12-26] MEDS: HYDROmorphone HCL 4 MG TAB PO PRN (11:58)
[2023-12-26] MEDS: CALCIUM CARBONATE 500 MG CHEWABLE TAB PO PRN (11:58)
[2023-12-26] MEDS: ACETAMINOPHEN 325 MG TAB PO PRN (14:48)
[2023-12-26] MEDS: diphenhydrAMINE Capsule 25 MG CAP PO PRN (14:48)
[2023-12-26 18:52] LABS: Hematocrit (blood only) 34.8 % (37.0-47.0); Hemoglobin 10.8 g/dl (12.0-16.0); Mean Corpuscular Hemoglobin 26.1 pg (25.0-34.0); Mean Corpuscular Volume 84.1 fL (80.0-100.0); Mean Platelet Volume 10.4 fL (9.4-12.4); Platelet Count 294 K/uL (130-400); RDW Coefficient of Variation 24.1 % (11.5-14.5); RDW Standard Deviation 68.1 fL (36.4-46.3); Red Blood Count 4.14 M/uL (4.20-5.40)
[2023-12-26 19:05] LABS: Albumin Globulin Ratio 1.1 (0.9-2); Albumin Level 3.2 gm/dl (3.4-5.0); Bilirubin,Total 0.2 mg/dl (0.2-1.0); Calcium 9.2 mg/dl (8.6-10.3); Creatinine Clr Calc Pharmacy 106.8 ml/min; Est GFR (African American) 96.8 ml/min; Est GFR (Non-African American) 83.6 ml/min; Globulin 2.9 gm/dl (2.5-4.0); Total Protein 6.1 gm/dl (6.0-8.3)
[2023-12-26] MEDS: bisacodyL 5 MG TABEC PO SCH (20:12)
--- NOTE | 2023-12-26 20:20 | Obstetrical Progress Note ---
Date of Service December 26, 2023 Assessment & Plan (1) Nephrolithiasis: (2) Ureteral stent present: (3) S/P section: Plan Patient appears comfortable currently. Vitals are stable with most recent bp 126/88, pulse<100. Oliveira moderate, not worsening and may be getting a little be tter. Labs all wnl. Do not suspect pet. Suspect OLIVEIRA due to stress and poor sleep. Stent pain better controlled with dilauded, tylenol, iv toradol. No further episodes of dizziness, lightheadedness. Suspect that was from moving to fast to the BR. Discussed sitting at the bedside for a bit and standing at the bedside for a bit to acclimate before moving. She notes overall she is feeling better. Will continue to monitor closely. did discuss that she will need to pump every 3 or so hours. Suggested a laxative and she is now leaning toward taking. Will continue to monitor closely. Subjective Came in to evaluate patient. Have been in pretty constant contact with nursing all afternoon. Patient had an episode where she felt lightheaded, dizzy, sweaty. She felt this way on the way to the BR. Feels like has to have BM, passed alot of gas so far, just a very small bm just recently. Per nursing, patient did not appear in distress when reporting this. Finally got her back to bed and she had a slightly elevated bp and tachy in 120s. She is also complaining of a oliveira. Notes her gerd has resolved. Dyllan regular diet without n/v. Notes no sob or chest pain. Vitals eventually returned to more normal levels and pulse less than 100. cbc and cmp obtained and wnl, h/h stable. ON questioning, it may be that she got out of bed to the bathroom a little too fast and started to feel like this. Notes, currently, her oliveira is a 4-5/10, bilateral and frontal in location. No vision changes. Notes it may be getting a bit better. Notes minimal pain at her c/s incision. Notes some kidney/stent pain but tolerating ok at this time. Was not in significant pain at the time of the dizzy episode, was not straining at stool. Recently took tylenol and benadryl and thinks that might be helping. She notes she has not slept really at all in 4 days and wondering if this is contributing. NO increase in swelling. Was able to pump 15cc recently. OLIVEIRA did not resolve with caffeine or lying flat--had a hard time lying flat as it stretched her c/s incision making her uncomfortable. When asking how she is feeling right now, she notes she is feeling much better. Physical Exam Constitutional WD/WN, vitals as above (patient resting comfortably in bed, color good) Respiratory normal respiratory effort, lungs clear to auscultation Cardiovascular RRR, no murmur, no edema Extremities: no calf tenderness and no edema Gastrointestinal (Abdomen) soft, nt, nd, incision c/d/i, ff at u, + soft bowel sounds. Skin no rashes, warm and dry Neurologic dtrs +3/2, brisk Psychiatric A+Ox3, euthymic affect Results & Data Vital Signs (Past 12 Hours) Vital Signs Temp Pulse Resp BP O2 Del Method 12/26/23 18:41 94 H 126/88 12/26/23 17:25 36.8 C 109 H 18 144/92 H Room Air 12/26/23 13:15 37.0 C 120 H 16 141/89 H Room Air 12/26/23 08:30 36.7 C 83 18 122/74 Room Air
[2023-12-27 07:02] LABS: Hematocrit (blood only) 32.3 % (37.0-47.0); Hemoglobin 9.9 g/dl (12.0-16.0)
--- NOTE | 2023-12-27 08:49 | Obstetrical Progress Note ---
Date of Service December 27, 2023 Assessment & Plan (1) S/P section: (2) Encounter for assessment: visit type: exam and care immediately after delivery Qualified Code(s): Z39.0 - Encounter for care and examination of mother immediately after delivery (3) Ureteral stent present: Plan continue current pain management plan. STart Daptomycin, will make urology aware she never got. Await culture from OR. Routine pp care. Day #:: 2 Subjective Ambulation: limited ambulation Voiding: no voiding problems Passing Gas:: Yes Diet Tolerance:: regular diet Lochia:: Small Feeding Type:: breast feeding (pumping) Patient was able to get some sleep last night. Minimal issues per nursing. Notes herrera is just mild and annoying 2/10. Notes her kidney pain is a bit worse today. Notes no n/v. Notes no cp/sob. Daptomycin appears to have never been given since her surgery. First dose given this am. Culture from surgery still pending. Culture from Ed did not grow. h/h is stable and wbc remains 13. Vitals are stable, bp normal. Physical Exam Constitutional WD/WN, vitals as above Respiratory normal respiratory effort, lungs clear to auscultation Cardiovascular RRR, no murmur, no edema Extremities: + edema (tr); no calf tenderness Gastrointestinal (Abdomen) soft, nt, nd ff/nt at u incision c/d/i Psychiatric A+Ox3, euthymic affect Results & Data Vital Signs (Past 12 Hours) Vital Signs Temp Pulse Resp BP Pulse Ox O2 Del Method 12/27/23 04:07 36.7 C 80 18 129/84 98 Room Air
[2023-12-27] MEDS: HYDROmorphone HCL 2 MG TAB PO STA (09:16)
[2023-12-27] MEDS: DAPTOmycin 600 MG in SYRINGE 0 ML IV SCH (09:26)
--- NOTE | 2023-12-27 14:25 | Urology Progress Note ---
Date of Service December 27, 2023 Assessment & Plan (1) Nephrolithiasis: (2) Renal colic on right side: (3) Acute right flank pain: (4) Previous section: Plan POD 2 s/p Bilateral Ureteroscopy with laser lithotripsy and stone basket extraction. Patient also postop day 2 status post section by gynecology Had extensive stone disease bilaterally with the larger stones on the right and obstructing stone on the left. Was dealing with severe obstructive issues and recurrent UTIs with multidrug resistant infections. Much better pain control with current medication regimen. Patient has noticed improvement over time. At this point dealing with some episodes of incontinence which may be due to pelvic floor fatigue as well as urgency and frequency. Did discuss different options for management of this. Will likely improve over time. Did discuss possible blooding in the urine. The plan to continue with observation of the patient overnight. Will likely be able to continue to monitor. May be able to attempt stent removal tomorrow if patient is tolerating without major issues or development of significant fevers. Patient did not have antibiotics yesterday but did have a dose today. May be able to de-escalate antibiotics significantly since the patient has remained afebrile. Admission and Anticipated Discharge Date Admission Date: December 25, 2023 Subjective Postop from Cystoscopy with bilateral ureteroscopy, stone treatment, and stent placement for obstruction issues with bilateral stones, severe MDR infections, and recent post-/Delivery by . Patient has been tolerating well. Has noticed some frequency and urgency. Has not had severe pain in the back and flank. Does have occasional burning and irritation. No severe episodes or major changes. No new nausea or vomiting. Had tolerated anesthesia without major problems Has required continued pain management due to issues. Has been working with the OB team for management of this. Had severe issues with stones during . Patient sore, significant fatigue likely due to combination of intervention. Has been having some leakage issues likely due to fatigue of the pelvic floor. No major issues with stents currently. Is having considerable episodes of urgency and frequency at times. Has gotten much better with pain control with changing of medications Review of Systems Review of Systems: All systems were reviewed. Any pertinent positives and/or negatives are listed in the history of present illness section. Physical Exam Physical Exam: General: Alert in no acute distress. HEENT: Normocephalic Atraumatic. Inspection normal. Cranial Nerves 2-12 Grossly intact. Normal inspection of face. Normal inspection of neck. Psychologic: Normal affect. Respiratory: Nonlabored. No use of accessory muscles. No tachypnea or dyspnea. Cardiovascular: No tachycardia Skin: [place] and Dry. No rashes or visible lesions. Extremities/Lymphatics: No edema Abdomen: Soft Non-distended. No rebound or guarding. Wound: Pfannenstiel incision - clean, intact. Ureteral stent tethers secured to skin. Results & Data Vital Signs (Past 12 Hours) Vital Signs Temp Pulse Resp BP Pulse Ox O2 Del Method 12/27/23 13:15 37 C 76 18 123/84 12/27/23 08:15 36.7 C 78 18 131/86 98 Room Air 12/27/23 04:07 36.7 C 80 18 129/84 98 Room Air PG Care Time/CCT Total # of Minutes Spent Total Time Spent with Patient: Total time spent is greater than 50% in coordination of care (as documented) at patient's floor/unit and/or counseling patient: Coding Level of Care Code 07988 SUB INP/OBS CARE 3/50MIN Diagnoses Nephrolithiasis N20.0 Renal colic on right side N23 Acute right flank pain R10.9 Previous section Z98.891
[2023-12-27] MEDS ORDERED: bisacodyL 10 MG SUPP PR PRN (14:44)
--- NOTE | 2023-12-28 07:14 | Obstetrical Progress Note ---
Date of Service December 28, 2023 Assessment & Plan (1) S/P section: (2) Ureteral stent present: (3) Encounter for assessment: visit type: exam and care immediately after delivery Qualified Code(s): Z39.0 - Encounter for care and examination of mother immediately after delivery Plan Plan d/c today after stents removed. Appreciate urology input. Is passing lots of sediment in urine. Pain management plan for home is three day supply of toradol po (which she notes has been fine with her gastric bypass) and oxyIR po. Hopefully as all stones now gone with removal or lithotripsy, she will have significantly decreased pain after stents removed. My biggest concern for her is narcotic withdraw. She has discussed this with her pcp and have advised her to make an appt with him to make a plan should this happen. Indeed, they have talked about the potential of this at her last appt with him about a month ago. Routine f/u in the office. Day #:: 3 Subjective Ambulation: ambulating normally Voiding: no voiding problems (passing lots of sand) Passing Gas:: Yes Diet Tolerance:: regular diet Lochia:: Small Feeding Type:: breast feeding Notes her pain is pretty well controlled on oral pain meds. Stents should be removed today. Then plan d/c. Physical Exam Constitutional WD/WN, vitals as above Cardiovascular Extremities: + edema (tr); no calf tenderness Gastrointestinal (Abdomen) soft, nt, nd ff/nt 1 below u incision c/d/i Psychiatric A+Ox3, euthymic affect Results & Data Vital Signs (Past 12 Hours) Vital Signs Temp Pulse Resp BP Pulse Ox O2 Del Method 12/27/23 23:37 37.0 C 72 16 145/86 H 98 Room Air 12/27/23 19:40 36.8 C 86 16 133/85 97 Room Air
--- NOTE | 2023-12-28 09:34 | Urology Progress Note ---
Date of Service December 28, 2023 Assessment & Plan (1) Nephrolithiasis: (2) Renal colic on right side: (3) Acute right flank pain: (4) Previous section: Plan POD 3 s/p Bilateral Ureteroscopy with laser lithotripsy and stone basket extraction. -Tethered stents removed at bedside, patient tolerated procedure well -Patient to receive last dose of daptomycin before discharge -Patient will be discharged with pain medicine per AEROLOGIST, she will be reaching out to her PCP for further pain control -We will arrange outpatient follow-up within a month at our office as she would like to reconnect with [facility] urology -She can call the office for any acute urological concerns or questions prior to her follow-up Admission and Anticipated Discharge Date Admission Date: December 25, 2023 Subjective Postop day [address] Treadwell: cystoscopy with bilateral ureteroscopy, stone treatment, and stent placement for obstruction issues with bilateral stones, severe MDR infections, and recent post-/Delivery by C- section. She has been afebrile and hemodynamically stable since surgery. She has been receiving postoperative antibiotics. Patient has been tolerating well. No changes to baseline urinary symptoms. Admitting to some flank abdominal pain. Denies fever, chills, admitting to nausea and vomiting due to pain. Has required continued pain management due to issues. Has been working with the OB team for management of this-she will be discharged with Toradol and oxycodone for approximately 3 days. She will be reaching out to her PCP for further pain management. Had issues with stones during -has been following with [facility] but would like to reconnect with [facility]. Review of Systems Constitutional: as per Subjective / HPI Genitourinary: as per Subjective / HPI Physical Exam Constitutional: well developed and well nourished; no acute distress Respiratory: normal respiratory effort and able to speak in complete sentences Musculoskeletal: Extremities: extremities normal to inspection Psychiatric: Orientation: alert and oriented x 3 Genitourinary: Tegaderm removed Stent strings grasped and pulled with gentle stable pressure Stents removed without any issues Patient tolerated removal well Results & Data Vital Signs (Past 12 Hours) Vital Signs Temp Pulse Resp BP Pulse Ox O2 Del Method 12/28/23 07:40 36.8 C 72 18 134/85 98 Room Air 12/27/23 23:37 37.0 C 72 16 145/86 H 98 Room Air PG Care Time/CCT Total # of Minutes Spent Total Time Spent with Patient: Total time spent is greater than 50% in coordination of care (as documented) at patient's floor/unit and/or counseling patient: Coding Level of Care Code 46005 SUB INP/OBS CARE 2/35MIN Diagnoses Nephrolithiasis N20.0 Renal colic on right side N23 Acute right flank pain R10.9 Previous section Z98.891
[2023-12-28] MEDS: CITRIC ACID/SODIUM CITRATE 15 ML UDC ONE (10:28)
[2023-12-28] MEDS: MoRPHine SULFATE 4 MG/ML 1 ML CARP\\VIAL IV STA (10:28)
[2023-12-28] MEDS: CITRIC ACID/SODIUM CITRATE 15 ML UDC PO SCH (10:28)
[2023-12-28] MEDS: MoRPHine SULFATE 4 MG/ML 1 ML CARP\\VIAL ONE (10:28)
[2023-12-28] MEDS: ERYTHROMYCIN OP OINT 1 GM PKT ONE (10:28)
[2023-12-28] MEDS: ceFAZolin 3,000 MG in DEXTROSE 5% 50 ML IV SCH (10:28)
[2023-12-28] MEDS: ACETAMINOPHEN 1000 MG/100 ML IV IV ONE (10:29)
[2023-12-28] MEDS: HEPATITIS B VACCINE RECOMBIN (HepB) 10 MCG/0.5 ML VIAL IM ONE (10:29)
[2023-12-28] MEDS: Sweet Cheeks 40% Glucose Gel PO ONE ×2 (10:29)
[2023-12-28] MEDS: PHYTONADIONE PED 1 MG/0.5ML AMP/SYRG ONE (10:29)
[2023-12-28] MEDS: SODIUM CHLORIDE 0.9% 1,000 ML IV SCH (10:30)
[2023-12-28] MEDS: HYDROmorphone INJ 1 MG/ML SYRINGE ONE (10:30)
[2023-12-28] MEDS: MoRPHine SULFATE PF 1 MG/ML 10 ML AMP/VIAL INT SPINAL ONE (10:30)
[2023-12-28] MEDS: HYDROmorphone INJ 1 MG/ML SYRINGE IV STA (10:40)
--- NOTE | 2023-12-29 20:17 | Discharge Summary ---
Date of Service December 29, 2023 Discharge Data Procedures Performed Operation Date: 12/25/23 12:00 Actual Procedures p Cystoscopy Bilateral Ureteroscopy and Stent Insertion ( downtime chart scanned in by HIM) - Edin Treadwell DO Coding Level of Care Code None
== END 2023-12-28 18:45 | disposition home or self-care (01) | DRG 787 ==
LOC: 4S1 19:15 → OPB 19:15 → 4S1 19:16 → 4E2 12-25 14:59

== ENCOUNTER 2023-12-29 15:28 | Inpatient (IN) ==
--- NOTE | 2023-12-29 15:53 | Emergency Department Note ---
Impression & Plan Headache ADMIT ED Provider Note HPI: History obtained from patient. The patient is a 28-year-old female who is postoperative day #4 status post C- section, also with ureteral stent removal postoperative day #4 as well, presents the emergency department today with headache, bilateral lower extremity edema, and concern for high blood pressure. Patient states she has had the symptoms for the past several days. Patient states that she did contact her GRADUATING MACHINE OPERATOR provider's office today and was advised to come to the emergency department to be assessed over concern for possible preeclampsia. Patient states that she did not have preeclampsia during her however she did with her first . On arrival here to the ED the patient is alert, she appears to be in no acute distress, she has noted to be hypertensive on arrival at 164/109. Patient denies any chest pain or shortness of breath. ROS: - Per HPI Differential Diagnosis: Preeclampsia, migraine complex, tension headache, CHF exacerbation, intracranial hemorrhage, urinary tract infection, amongst other potential pathologies. *Outpatient medications and allergy history reviewed. PE: General: Alert HEENT: Normocephalic, trachea midline Eyes: Extraocular eye movement is intact, no scleral erythema Pulmonary: Clear to auscultation bilaterally, no wheezing Cardio: Regular rate and rhythm GI: Abdomen is soft to palpation, section scar appears to be healing appropriately without surrounding erythema or drainage : No suprapubic tenderness MSK: No evidence of trauma or malformation of the extremities, 2+ edema of the bilateral lower extremities Skin: No evidence of rash Neuro: Alert, no focal deficits Psychiatric: Cooperative INDEPENDENT INTERPRETATIONS: awake overnight monitor: (As interpreted by myself): - An order was placed for continuous cardiac monitoring - Patient was noted to be in sinus rhythm with a rate of 95 EKG: (As interpreted by myself): Rate: 78 Rhythm: Normal sinus rhythm Intervals: Within normal limits ST changes: No ST elevation Time: 1541 Interventions provided in ED: -IV labetalol, IV magnesium, IV morphine Medical Decision Making: IV was established and lab work obtained, patient was placed on monitor tech. Lab work shows no leukocytosis, hemoglobin is stable at 10.2, platelet count is normal. CMP does not show any evidence of any critical findings, no transaminitis, troponin is negative x 1. Urinalysis shows 3+ blood, urine nitrite is negative, 1+ leukocyte Estrace with mild pyuria, will send for culture. Patient denies any dysuria, I suspect these findings are more related to her recent stent removal as opposed to UTI acutely. CT imaging of the head does not show any evidence of any acute intracranial process. Chest x-ray does not show any evidence of acute process. Patient was given IV labetalol shortly after arrival, I did discuss her presentation at that time with on-call GRADUATING MACHINE OPERATOR, Dr. Mcclellan, who did recommend initiating magnesium bolus and admission to the L&D service for overnight observation over concern for preeclampsia. Patient's blood pressure did downtrend here in the ER during my assessment with IV labetalol. She did request a dose of IV pain medicine and was given IV Reglan, IV Benadryl, and a small dose of IV morphine for her discomfort. Patient was in agreement for admission. Patient was placed for admission in stable condition. Consultants/Discussions held with other healthcare providers: -GRADUATING MACHINE OPERATOR, Dr. Mcclellan Disposition discussion held by myself with: -Patient Diagnosis: 1. headache, acute 2. Concern for preeclampsia 3. Lower extremity edema in the state, acute 4. 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 VRE (vancomycin resistant enterococcus) culture positive Class 3 obesity Hypokalemia (Acute) Acute flank pain (Acute) UTI (urinary tract infection) (Acute) Pyelonephritis (Acute) History of renal calculi (Acute) Acute left flank pain (Acute) Hyperparathyroidism (Acute) First trimester (Acute) 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 History of colonoscopy History of appendectomy 03/16/19: Grade 2 view, Veloz 2, ETT 7.5 atraumatic x 1. History of wisdom tooth extraction PONV (postoperative nausea and vomiting) Status post laparoscopic procedure REMOVED uterine surface endometriotic tissue Previous section 02/20/2017 Family History Uncle Diabetes Mother Kidney stones Breast cancer Hx of cholecystectomy Hypertension Father Hx of cholecystectomy Other No family history of adverse response to anesthesia Denies family history of Ovarian cancer Prostate cancer Colorectal cancer Social History Smoking Status: Never smoker Second Hand Exposure: No; Do You Dip or Chew Tobacco: No; Hx Alcohol Use: No Hx Substance Use: No Preferred Language: Belgian Communication Ability: Effective Dining Room Server Required: No Beliefs That Will Affect Care: None marital status: marital status details: Umberto gillespie ( 28) [phone] Current Living Situation: Family Current Living Situation Comment: FOB and 7 year old son current occupational status: employed 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 Feels Safe at Home: Yes Assistive Devices: Contacts and Glasses Allergies Allergies Allergy/AdvReac Type Severity Reaction Status Date / Time sulfamethoxazole Allergy Intermediate HIVES Verified 12/16/23 14:20 trimethoprim Allergy Intermediate HIVES Verified 12/16/23 14:20 Home Meds Home Medications Medication Instructions Recorded Confirmed buspirone 10 mg tablet 10 mg PO HS 03/09/23 12/29/23 cholecalciferol (vitamin D3) 125 125 mcg PO DAILY 03/09/23 12/29/23 mcg (5,000 unit) capsule sertraline 100 mg tablet 100 mg PO DAILY 03/09/23 12/29/23 cyanocobalamin (vitamin B-12) 1,000 mcg IM USEASDIRECTD 07/10/23 12/29/23 1,000 mcg/mL injection solution ferrous sulfate 325 mg (65 mg 325 mg PO BID 07/10/23 12/29/23 iron) tablet vit no.133-ferrous 1 tab PO DAILY 11/02/23 12/29/23 fumarate 28 mg-folic acid 800 mcg tablet () oxycodone 1 tab PO Q6H PRN kidney stones 12/16/23 12/29/23 omeprazole 20 mg capsule,delayed 20 mg PO DAILY 12/24/23 12/29/23 release ondansetron HCl 4 mg tablet 4 mg PO DIRECTED PRN Nausea And 12/24/23 12/29/23 Vomiting Previous Rx's Medication Instructions Recorded ketorolac 10 mg tablet 10 mg PO Q8H PRN pain #10 tabs 12/28/23 oxycodone 5 mg capsule 5 mg PO Q8H PRN pain #10 caps 12/28/23 Results & Data (ED) Vital Signs Vital Signs - 24 hr 12/29/23 15:29 12/29/23 15:31 12/29/23 15:48 Temperature 36.6 C Temperature Source Temporal Artery Scan Pulse Rate 84 72 Pulse Rhythm Regular Pulse Strength Normal Respiratory Rate 18 Respiratory Effort / Characteristics Non-Labored Spontaneous Respiratory Depth Normal Respiratory Pattern Regular Blood Pressure 164/109 H Blood Pressure Mean 127 Blood Pressure Position Sitting Pulse Oximetry 98 Oxygen Delivery Method Room Air Room Air Sepsis Recent Fever Within 48 Hours No Sepsis New/Unexplained Change in Mental Status No Sepsis Action Taken by Nursing No Action Required Laboratory Data 12/29/23 16:02 12/29/23 16:02 Lab Results 12/29/23 Range/Units 16:02 WBC 7.80 (4.8-10.8) K/ul RBC 3.95 L (4.20-5.40) M/uL Hgb 10.2 L (12.0-16.0) g/dl Hct 32.7 L (37.0-47.0) % MCV 82.8 (80.0-100.0) fL MCH 25.8 (25.0-34.0) pg MCHC 31.2 L (32.0-36.0) g/dL RDW Std Deviation 65.5 H (36.4-46.3) fL RDW Coeff of Coral 23.1 H (11.5-14.5) % Plt Count 325 (130-400) K/uL MPV 10.3 (9.4-12.4) fL Immature Gran % (Auto) 0.8 % Neut % (Auto) 60.6 % Lymph % (Auto) 28.8 % [place] % (Auto) 6.0 % Eos % (Auto) 2.6 % Baso % (Auto) 1.2 % Neut # (Auto) 4.73 (1.40-6.50) K/uL Lymph # (Auto) 2.25 (1.20-3.40) K/uL [place] # (Auto) 0.47 (0.11-0.59) K/uL Eos # (Auto) 0.20 (0.00-0.50) K/uL Baso # (Auto) 0.09 (0.00-0.20) K/uL Immature Gran # (Auto) 0.06 (0.01-0.20) K/uL Anisocytosis Present Sodium 141 (136-145) mmol/L Potassium 3.9 (3.5-5.1) mmol/L Chloride 108 H (98-107) mmol/L Carbon Dioxide 24 (21-32) mmol/L Anion Gap 9 (3-11) BUN 14 (6-23) mg/dl Creatinine 0.79 (0.6-1.2) mg/dl Est Cr Clr Drug Dosing 124.3 ml/min Est GFR ( Amer) 116.4 ml/min Est GFR (Non-Af Amer) 100.5 ml/min BUN/Creatinine Ratio 17.7 (10-20) Glucose 83 (70-99(Fasting)) mg/dl Calcium 9.4 (8.6-10.3) mg/dl Total Bilirubin 0.4 (0.2-1.0) mg/dl AST 19 (13-39) U/L ALT 12 (7-52) U/L Alkaline Phosphatase 98 (34-104) U/L Troponin I High Sens 4.2 (0-14) pg/ml Total Protein 7.3 (6.0-8.3) gm/dl Albumin 3.8 (3.4-5.0) gm/dl Globulin 3.5 (2.5-4.0) gm/dl Albumin/Globulin Ratio 1.1 (0.9-2) Lipase 55 (11-82) U/L Urine Color Red Urine Appearance Cloudy A (Clear) Urine pH 6.0 (4.5-7.5) Ur Specific [place] 1.015 (1.000-1.030) Urine Protein 1+ H (Negative) Urine Glucose (UA) Negative (Negative) Urine Ketones Negative (Negative) Urine Blood 3+ H (Negative) Urine Nitrite Negative (Negative) Urine Bilirubin Negative (Negative) Urine Urobilinogen Negative (Negative) Ur Leukocyte Esterase 1+ H (Negative) Urine WBC (Auto) 21-50 H (0-5) /hpf Urine RBC (Auto) >20 H (0-2) /hpf U Hyaline Cast (Auto) 0-2 (0-2) /lpf U Epithel Cells (Auto) 0-2 (0-2) /hpf Urine Bacteria (Auto) None Seen (None Seen) Administered Medications Magnesium Sulfate (Magnesium Sulfate / Wtr) 40 gm in 1,000 mls @ 50 mls/hr IV .Q20H CHELSEY Stop: 01/28/24 19:49 Last Admin: 12/29/23 20:24 Dose: 50 mls/hr Documented By: FERNANDO Co-signed By: SAAD Discontinued Medications Diphenhydramine HCl (Diphenhydramine 50 Mg/Ml Vial) 25 mg IV NOW STA Stop: 12/29/23 15:51 Last Admin: 12/29/23 16:00 Dose: 25 mg Documented By: PHIL Magnesium Sulfate (Magnesium Sulfate / Wtr) 40 gm in 1,000 mls @ 50 mls/hr IV .Q20H CHELSEY Stop: 01/28/24 16:44 Last Infusion: 12/29/23 20:23 Dose: Infused Documented By: FERNANDO Co-signed By: reverse unit operator fisherman: 12/29/23 16:59 Dose: 50 mls/hr Documented By: LORI Co-signed By: PHIL Labetalol HCl (Labetalol Hcl Iv 5 Mg/Ml 20ml) 10 mg IV NOW STA Stop: 12/29/23 15:47 Last Admin: 12/29/23 15:59 Dose: 10 mg Documented By: PHIL Co-signed By: LORI Magnesium Sulfate (Mag Sulfate 4gm Bolus From Bag) 4 gm IV ONE ONE Stop: 12/29/23 16:46 Last Admin: 12/29/23 16:59 Dose: 4 mg Documented By: LORI Co-signed By: PHIL Metoclopramide HCl (Metoclopramide Hcl Inj 5 Mg/Ml 2 Ml Vial) 10 mg IV NOW STA Stop: 12/29/23 15:51 Last Admin: 12/29/23 16:00 Dose: 10 mg Documented By: PHIL Morphine Sulfate (Morphine Sulfate 2 Mg/Ml Carp) 2 mg IV NOW STA Stop: 12/29/23 19:34 Last Admin: 12/29/23 19:55 Dose: 2 mg Documented By: FERNANDO Imaging Data Radiologist's Impression: Chest X-Ray 12/29/23 15:46 XR chest 1V portable HISTORY: 28 years-old Female Chest pain, nonspecific COMPARISON: 05/23/2017 TECHNIQUE: AP view of the chest FINDINGS: Cardiomediastinal and hilar silhouettes are within normal limits. No pneumothorax, pleural effusion or airspace consolidation. Bones appear grossly intact. IMPRESSION: No acute process. ACT 112: Negative or not required by law. The above report was generated using voice recognition software. It may contain grammatical, syntax or spelling errors. Electronically signed by: Jorge Pineda M.D. 12/29/2023 4:[address] 12/29/23 15:46 CT OF THE HEAD WITHOUT CONTRAST CLINICAL HISTORY: Headache. COMPARISON STUDY: No previous studies for comparison. CT DOSE: 547.75 mGy.cm TECHNIQUE: Helical axial images of the head were obtained without IV contrast. Automated exposure control was utilized for the study. A dose lowering technique was utilized adhering to the principles of ALARA. FINDINGS: No acute intracranial hemorrhage, midline shift or mass effect is present. The ventricular system is unremarkable. The basal cisterns are patent. No extra-axial collections are present. There are no findings to suggest acute dural sinus thrombosis or acute territorial infarct. No significant calvarial abnormalities are present. Visualized portions of the sinuses and mastoid air cells are clear. IMPRESSION: No acute intracranial findings. ACT 112: Negative or not required by law. Electronically signed by: Arie Serrano M.D. 12/29/2023 4:36 PM Discharge Plan Visit Data Chief Complaint: Hypertension Stated Complaint: POST PRECLAMPSIA, HYPERTENSION ED Provider: Antelmo Nielson Discharge Problem: Headache Patient Disposition: Admitted As Inpatient Discharge Instructions Interventions: ED Discharge Assessment Last Done: 12/29/23 19:51 Discharge Problem: Headache Qualifiers: Headache type: unspecified Headache chronicity pattern: acute headache I ntractability: not intractable Qualified Code(s): R51.9 - Headache, unspecified
[2023-12-29] MEDS: LABETALOL HCL IV 5 MG/ML 20ML IV STA (15:59)
[2023-12-29] MEDS: diphenhydrAMINE 50 MG/ML VIAL IV STA (16:00)
[2023-12-29] MEDS: METOCLOPRAMIDE HCL INJ 5 MG/ML 2 ML VIAL IV STA (16:00)
[2023-12-29] MEDS ORDERED: MAG SULFATE 4GM BOLUS FROM BAG IV ONE (16:11)
[2023-12-29 16:22] LABS: Basophils # (auto) 0.09 K/uL (0.00-0.20); Basophils % (auto) 1.2 %; Eosinophils % (auto) 2.6 %; Hematocrit (blood only) 32.7 % (37.0-47.0); Hemoglobin 10.2 g/dl (12.0-16.0); Immature Granulocytes # (auto) 0.06 K/uL (0.01-0.20); Immature Granulocytes % (auto) 0.8 %; Lymphocytes # (auto) 2.25 K/uL (1.20-3.40); Lymphocytes % (auto) 28.8 %; Mean Corpuscular Hemoglobin 25.8 pg (25.0-34.0); Mean Corpuscular Hgb Conc 31.2 g/dL (32.0-36.0); Mean Corpuscular Volume 82.8 fL (80.0-100.0); Mean Platelet Volume 10.3 fL (9.4-12.4); Monocytes # (auto) 0.47 K/uL (0.11-0.59); Neutrophils # (auto) 4.73 K/uL (1.40-6.50); Neutrophils % (auto) 60.6 %; Platelet Count 325 K/uL (130-400); RDW Coefficient of Variation 23.1 % (11.5-14.5); RDW Standard Deviation 65.5 fL (36.4-46.3); Red Blood Count 3.95 M/uL (4.20-5.40)
[2023-12-29 16:23] LABS: Appearance Urine Cloudy (Clear); Bacteria Urine Automated None Seen (None Seen); Bilirubin Urine Negative (Negative); Blood Urine 3+ (Negative); Cast Urine Automated 0-2 /lpf (0-2); Color Urine Red; Epithelial Cell Urine Auto 0-2 /hpf (0-2); Glucose Urine UA Negative (Negative); Ketones Urine Negative (Negative); Leukocyte Esterase Urine 1+ (Negative); Nitrite Urine Negative (Negative); Protein Urine 1+ (Negative); RBC Urine Automated >20 /hpf (0-2); Specific Gravity Urine 1.015 (1.000-1.030); Urobilinogen Urine Negative (Negative); WBC Urine Automated 21-50 /hpf (0-5)
--- NOTE | 2023-12-29 16:38 | CT Scan Report ---
CT OF THE HEAD WITHOUT CONTRAST CLINICAL HISTORY: Headache. COMPARISON STUDY: No previous studies for comparison. CT DOSE: 547.75 mGy.cm TECHNIQUE: Helical axial images of the head were obtained without IV contrast. Automated exposure con trol was utilized for the study. A dose lowering technique was utilized adhering to the principles o f ALARA. FINDINGS: No acute intracranial hemorrhage, midline shift or mass effect is present. The ventricular system is unremarkable. The basal cisterns are patent. No extra-axial collections are present. There are no findings to suggest acute dural sinus thrombosis or acute territorial infarct. No significant calvarial abnormalities are present. Visualized portions of the sinuses and mastoid air cells are kelsey ar. IMPRESSION: No acute intracranial findings. ACT 112: Negative or not required by law. Electronically signed by: Arie Serrano M.D. 12/29/2023 4:36 PM
[2023-12-29 16:41] LABS: Anisocytosis Present
--- NOTE | 2023-12-29 16:44 | XRay Report ---
XR chest 1V portable HISTORY: 28 years-old Female Chest pain, nonspecific COMPARISON: 05/23/2017 TECHNIQUE: AP view of the chest FINDINGS: Cardiomediastinal and hilar silhouettes are within normal limits. No pneumothorax, pleural effusion o r airspace consolidation. Bones appear grossly intact. IMPRESSION: No acute process. ACT 112: Negative or not required by law. The above report was generated using voice recognition software. It may contain grammatical, syntax o r spelling errors. Electronically signed by: Jorge Pineda M.D. 12/29/2023 4:43 PM
[2023-12-29 16:47] LABS: Albumin Globulin Ratio 1.1 (0.9-2); Albumin Level 3.8 gm/dl (3.4-5.0); BUN Creatinine Ratio 17.7 (10-20); Bilirubin,Total 0.4 mg/dl (0.2-1.0); Calcium 9.4 mg/dl (8.6-10.3); Creatinine Clr Calc Pharmacy 124.3 ml/min; Est GFR (African American) 116.4 ml/min; Est GFR (Non-African American) 100.5 ml/min; Globulin 3.5 gm/dl (2.5-4.0); Potassium 3.9 mmol/L (3.5-5.1); Total Protein 7.3 gm/dl (6.0-8.3)
[2023-12-29 16:49] LABS: Troponin I High Sensitivity 4.2 pg/ml (0-14)
[2023-12-29] MEDS: MAGNESIUM SULFATE / WTR 40 GM/1,000 ML BAG IV SCH ×2 (16:59→20:24)
[2023-12-29] MEDS: MAG SULFATE 4GM BOLUS FROM BAG IV ONE (16:59)
--- NOTE | 2023-12-29 17:35 | Electrocardiogram Report ---
Test Reason : Blood Pressure : / mmHG Vent. Rate : 078 BPM Atrial Rate : 078 BPM P-R Int : 124 ms QRS Dur : 084 ms QT Int : 356 ms P-R-T Axes : 042 068 027 degrees QTc Int : 405 ms Normal sinus rhythm with sinus arrhythmia Normal ECG When compared with ECG of 10-JUL-2023 12:27, No significant change was found Confirmed by Adan Guo ([id number]) on 12/29/2023 5:35:02 PM Referred By: Confirmed By:Adan Guo
--- NOTE | 2023-12-29 19:21 | History & Physical Report ---
Date of Service December 29, 2023 History of Present Illness Primary Care Provider: Dimas Doty, DO 28yo POD#4 from RCS and POD#4 from lithotripsy and bilateral stents, POD#3 from stent removal. Presented to ER today after being found to have elevated BP at her PCP office. C/O Headache and lower extremity edema on arrival. ER evaluation including EKG, CXR, CT head, and labs shows overall reassuring workup with anemia as c/w postop state and urine findings c/w recent stenting, not strongly suggestive of either significant protein spilling nor of UTI. BP found to be elevated initially, but responded to labetalol IV. Discussed with ER MD, and plan made for re-admit to give 24hr pp magnesium and antihypertensive therapy. Bolus of Mag given in ER and 2gm/hr maintenance infusion to follow. Patient admission orders placed. Prior to my being able to see the patient in person, I was required to scrub for a surgical procedure on L&D. ER did notify me that while I was scrubbed into surgery upstairs, Zan expressed a desire to leave AMA from the ER. She was also requesting narcotic medication for pain including headache. She was provided IV morphine in/by the ER. Her also brought her infant to visit with her. Subsequent to that, she decided to stay for admission. We are awaiting her arrival on L&D at this time. Allergies Allergy/AdvReac Type Severity Reaction Status Date / Time sulfamethoxazole Allergy Intermediate HIVES Verified 12/16/23 14:20 trimethoprim Allergy Intermediate HIVES Verified 12/16/23 14:20 Home Medications Medication Instructions Recorded Confirmed Type buspirone 10 mg tablet 10 mg PO HS 03/09/23 12/29/23 History cholecalciferol (vitamin D3) 125 125 mcg PO DAILY 03/09/23 12/29/23 History mcg (5,000 unit) capsule sertraline 100 mg tablet 100 mg PO DAILY 03/09/23 12/29/23 History cyanocobalamin (vitamin B-12) 1,000 mcg IM USEASDIRECTD 07/10/23 12/29/23 History 1,000 mcg/mL injection solution ferrous sulfate 325 mg (65 mg 325 mg PO BID 07/10/23 12/29/23 History iron) tablet vit no.133-ferrous 1 tab PO DAILY 11/02/23 12/29/23 History fumarate 28 mg-folic acid 800 mcg tablet () oxycodone 1 tab PO Q6H PRN kidney stones 12/16/23 12/29/23 History omeprazole 20 mg capsule,delayed 20 mg PO DAILY 12/24/23 12/29/23 History release ondansetron HCl 4 mg tablet 4 mg PO DIRECTED PRN Nausea And 12/24/23 12/29/23 History Vomiting ketorolac 10 mg tablet 10 mg PO Q8H PRN pain #10 tabs 12/28/23 12/29/23 Rx oxycodone 5 mg capsule 5 mg PO Q8H PRN pain #10 caps 12/28/23 12/29/23 Rx Patient History Medical History Ovarian cyst Kidney stones GERD (gastroesophageal reflux disease) Surgical History Hx of cystoscopy w/ stent-04/2022 [facility] History of Otilia-en-Y gastric bypass 10/04/21 [facility] [place] History of cholecystectomy 06/10/19: Grade 1 view, MAC 3, ETT 7.5 atraumatic x 1. History of colonoscopy History of appendectomy 03/16/19: Grade 2 view, Veloz 2, ETT 7.5 atraumatic x 1. History of wisdom tooth extraction PONV (postoperative nausea and vomiting) Status post laparoscopic procedure REMOVED uterine surface endometriotic tissue Previous section 02/20/2017 Family History Uncle Diabetes Mother Kidney stones Breast cancer Hx of cholecystectomy Hypertension Father Hx of cholecystectomy Other No family history of adverse response to anesthesia Denies family history of Ovarian cancer Prostate cancer Colorectal cancer Social History Smoking Status: Never smoker Second Hand Exposure: No; Do You Dip or Chew Tobacco: No; Hx Alcohol Use: No Hx Substance Use: No Preferred Language: Indonesian Communication Ability: Effective Composition Mixer Required: No Beliefs That Will Affect Care: None marital status: marital status details: Umberto gillespie ( 28) [phone] Current Living Situation: Family Current Living Situation Comment: FOB and 7 year old son current occupational status: 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
[2023-12-29] MEDS ORDERED: LABETALOL HCL IV 5 MG/ML 20ML IV PRN (19:50)
[2023-12-29] MEDS: MoRPHine SULFATE 2 MG/ML CARP IV STA (19:55)
[2023-12-29] MEDS: FERROUS SULFATE 325 MG TAB PO SCH (21:45)
[2023-12-29] MEDS: busPIRone 5 MG TAB PO SCH (23:09)
[2023-12-29] MEDS: KETOROLAC TROMETHAMINE 10 MG TABLET PO PRN (23:19)
--- OUTSIDE RECORDS SUMMARY | 2023-12-30 04:25 | External Medical Summary ---
Author Name Unknown Address Unknown Organization [id number]:[facility] [place] - [address] [place] [id number] Laboratory Report Ordering Provider Test Date Status LEDA SPENCER 12/24/2023 11:33:00 Final Observation Date Value Abnormality Reference (Units) Status Bacteria identified in Specimen by Culture 12/24/2023 11:33:00 No significant growth Final Test: Culture, Urine, Quant itative
Specimen Source: Urine, Clean Catch
Specimen Type: Urine
Specimen Date: 12/24/2023 1133
Result Date: 12/25/2023 1324
Result Status: Final result
Resulting Lab: [facility] [place]
[address]
[place] [address]

CULTURE

No significant growth

null Performing Location [facility] [place] - [address] [facility] [id number]
--- OUTSIDE RECORDS SUMMARY | 2023-12-30 04:25 | External Medical Summary | Summary of Care ---
Author Name Unknown Organization [facility] Address [address] [place] [address] Phone [phone] Care Team Providers Care It Network Engineer Name Role Phone Dimas Doty DO Primary Care Provider [phone] Reason for Visit * Reason Onset Date Comments Appointment 12/28/2023 Encounter Details Date Type Department Care Team (Late st Contact Info) Description 12/28/2023 Telephone Family Practice [facility] [address] [facility] [place] [address] Dimas Doty DO [address] [facility] [place] [address] Appointment Allergies Active Allergy Reactions Criticality Noted Date Comments Prochlorperazine Psych complications 06/12/2020 Probably dystonic reaction. The patient does tolerate Phenergan Morphine Hives Low 03/20/2019 Pt feels the rash may have been from tape at the IV site. Sulfamethoxazole Hives High 03/03/2021 Trimethoprim Hives High 05/02/2018 documented as of this encounter (statuses as of 12/28/2023) Medications Medication Sig Dispensed Refills Start Date [...] as of this encounter (statuses as of 12/28/2023) Active Problems Problem Noted Date Diagnosed Date [...] Menorrhagia with regular cycle 04/16/2021 [facility] OTHER*[id number] 01/24/2021 Gastroesophageal reflux disease with esophagitis 01/04/2019 [...] as of this encounter (statuses as of 12/28/2023) Resolved Problems Problem Noted Date Diagnosed Date [...] serum AST/ALT/creatinine and 24 hour urine protein JUAN JOSÉ if not already done. For patients with [...] as of this encounter (statuses as of 12/28/2023) Immunizations Name Administration Dates Next Due COVID-19 mRNA, LNP-s, No Pre serve, 2-Dose Series (Shoette) 04/03/2021,06/26/2020,06/05/2020 DTaP Dipth/Tet/Acell Pertussis (Infanrix), Peds 01/06/2017,09/28/1997,09/18/1994,08/15,1993,1993 [...] No 05/05/2023 Does the household have a [facility]? (Household - for ages [...] encounter Miscellaneous Notes * Telephone Encounter - Demetria Weathers LPN - 12/28/2023 1:27 PM EDT Hospital follow up scheduled 12/27 at 11:[address] Ramirez * Telephone Encounter - Randa Sanchez OSA - 12/28/2023 10:54 AM EDT No Appointments Available Patient declined appointments?: No What Visit Type is needed? Hospital Discharge If Acute Visit Type is needed, were surrounding clinics offered to patient (Yes/No)? N/A Was patient offered appointments with other available providers (Yes/No)? N/A See Call Details? (Yes or No): No Good morning, Patient is calling to [facility] Discharge appt. Pt was seen at [facility] and was discharged 12/28/23. Per pt her OBGYN advised to come in this week and juan josé due to having Opiod withdraw. She just gave and is concerned about the withdraw. Please advise Randa Matute documented in this encounter Plan of Treatment Upcoming Encounters Date Type Department Care Team (Late st Contact Info) Description 12/29/2023 11:20 AM EDT Office Visit [facility] [address] [place] [address] Jazzmine Ramirez MD [address] [place] [id number] 02/16/2024 10:00 AM EDT Office Visit [facility] [address] [place] [address] Dimas Doty, DO [address] [facility] [place] [address] Scheduled Procedures Name Priority Associated Diagnoses Date/Ti [...] Power of Attor gab? No Care Teams It Network Engineer Relationship Specialty Start Date End Date Dimas Doty DO [address] [place] [address] PCP - General Family Medicine 06/09/19 documented as of this encounter
--- OUTSIDE RECORDS SUMMARY | 2023-12-30 04:25 | External Medical Summary | Summary of Care ---
Author Name Unknown Organization [facility] Address [address] [place] [address] Phone [phone] Care Team Providers Care Ammonia Operator Name Role Phone JoanDimas gallegos Lorenza BELTRÁN Primary Care Provider [phone] Encounter Details Date Type Department Care Team (Late st Contact Info) Description 12/28/2023 Population Health External Data Unspecified Department Allergies Active Allergy Reactions Criticality Noted Date [...] mouth in the morning. 30 Tablet 5 12/18/2023 Active Omeprazole 20 MG Oral Capsule Delayed Release (PriLOSEC)Indicati ons:Gastroesophage al reflux disease with esophagitis and hemorrhage Take 1 Capsule by mouth in the morning. 30 Capsule 5 12/18/2023 Active Tamsulosin HCl 0.4 MG Oral Capsule (Flomax) Take 1 Capsule by mouth in the morning. 28 Capsule 5 12/18/2023 Active Cyclobenzaprine HCl 10 MG Oral [...] Menorrhagia with regular cycle 04/16/2021 [facility] OTHER*[id number] 01/24/2021 Gastroesophageal reflux disease with esophagitis 01/04/2019 [...] No 08/25/2023 documented as of this encounter Plan of Treatment Upcoming Encounters Date Type Department Care Team (Late st Contact Info) Description 02/16/2024 10:00 AM EDT Office Visit [facility] [address] [place], [place] [address] Dimas Doty DO [address] [place] [address] Scheduled Procedures Name Priority Associated Diagnoses Date/Ti [...] patient have Health Care Power of Attor agb? No Care Teams Ammonia Operator Relationship Specialty Start Date End Date Dimas Doty DO [address] [place] [address] PCP - General Family Medicine 06/09/19 documented as of this encounter
[2023-12-30] MEDS: ACETAMINOPHEN 325 MG TAB PO PRN (05:24)
[2023-12-30] MEDS: oxyCODONE/ACETAMINOPHEN 5mg/325mg TAB PO STA (06:42)
--- NOTE | 2023-12-30 08:26 | Obstetrical Progress Note ---
Date of Service December 30, 2023 Assessment & Plan (1) Preeclampsia in period: Plan: Continue mag therapy for 24hr, address BP if needed, anticipate ability to go back home tonight or tomorrow. Admission and Anticipated Discharge Date Admission Date: December 29, 2023 Subjective 28yo POD#5 CSec, Lithotripsy, Stenting, subsequent stent removal, readmitted with HTN and BREWSTER for management. Magnesium bolus and infusion started last night. IV labetalol prn elevated BP has been provided. Patient with repeated requests for pain medication for BREWSTER, pain, or both, managed with intermittent dosing of morphine and then percocet in this patient with significant narcotic use history. This morning says her BREWSTER has "almost gone," and her pain is more bothersome. No RUQ pain, no vision change, mild edema in LE's improving rapidly. Physical Exam Physical Exam: GEN: Supine, NAD Cor: RRR Lungs: No resp distress, speech fluid Abd: soft, postgravid, no RUQ pain / Rivas neg. Incision c/d/i with glue. LE: SCD's on, trace edema, DTR 2+ patellae Results & Data Vital Signs (Past 12 Hours) Vital Signs Temp Pulse Resp BP Pulse Ox O2 Del Method 12/30/23 08:14 101 H 100 12/30/23 08:09 91 H 100 12/30/23 08:04 86 100 12/30/23 07:59 87 98 12/30/23 07:54 95 H 99 12/30/23 07:49 88 98 12/30/23 07:44 93 H 98 12/30/23 07:39 90 98 12/30/23 07:34 99 H 99 12/30/23 07:30 96 H 155/88 H 12/30/23 07:29 95 H 99 12/30/23 07:24 90 98 12/30/23 07:19 99 H 99 12/30/23 07:15 98.6 F 20 12/30/23 07:15 18 12/30/23 07:14 103 H 98 12/30/23 07:09 101 H 98 12/30/23 07:04 99 H 98 12/30/23 06:59 92 H 99 12/30/23 06:54 90 99 12/30/23 06:49 90 99 12/30/23 06:44 89 99 12/30/23 06:39 89 98 12/30/23 06:34 89 98 12/30/23 06:30 18 12/30/23 06:29 91 H 133/65 98 12/30/23 06:24 87 97 12/30/23 06:19 71 96 12/30/23 06:18 67 92 07 06:14 70 95 12/30/23 06:09 74 98 12/30/23 06:04 69 98 12/30/23 05:59 72 98 12/30/23 05:55 71 94 12/30/23 05:54 74 95 12/30/23 05:49 77 97 12/30/23 05:44 76 97 12/30/23 05:39 75 96 12/30/23 05:34 78 96 12/30/23 05:30 16 12/30/23 05:29 80 135/67 95 12/30/23 05:24 89 96 12/30/23 05:19 80 95 12/30/23 05:14 81 98 12/30/23 05:09 80 96 12/30/23 05:04 79 96 12/30/23 04:59 76 95 24 04:54 74 98 12/30/23 04:53 75 90 12/30/23 04:49 72 95 12/30/23 04:44 72 97 12/30/23 04:39 73 97 12/30/23 04:34 74 97 12/30/23 04:30 16 12/30/23 04:29 80 138/71 98 24 04:24 97 12/30/23 04:24 71 0724 04:24 71 93 24 04:19 81 94 12/30/23 04:18 77 94 12/30/23 04:14 72 97 12/30/23 04:09 88 97 12/30/23 04:04 77 96 24 03:59 77 96 24 03:54 75 96 24 03:49 76 96 24 03:44 77 96 0724 03:39 73 97 24 03:38 80 93 24 03:34 73 96 24 03:30 16 24 03:29 98.4 F 76 131/62 95 0724 03:26 76 93 0724 03:24 81 99 0724 03:19 69 95 24 03:14 76 98 0724 03:09 74 96 24 03:04 73 96 24 02:59 78 97 24 02:57 78 93 12/30/23 02:54 75 96 24 02:50 76 94 24 02:49 78 95 24 02:44 79 97 12/30/23 02:39 81 95 24 02:34 81 97 12/30/23 02:30 16 12/30/23 02:29 98 12/30/23 02:29 76 12/30/23 02:29 77 132/63 94 12/30/23 02:24 85 95 12/30/23 02:22 80 93 12/30/23 02:19 81 99 12/30/23 02:14 79 96 12/30/23 02:09 83 98 12/30/23 02:04 83 97 12/30/23 02:02 81 92 24 01:59 82 95 24 01:54 82 95 24 01:49 82 96 24 01:44 83 95 24 01:39 83 95 24 01:37 83 94 24 01:36 16 12/30/23 01:34 80 96 24 01:32 87 94 24 01:29 84 115/58 L 94 24 01:26 85 94 0724 01:24 84 94 0724 01:19 95 24 01:19 85 0724 01:19 83 94 24 01:14 95 24 01:14 84 0724 01:14 84 94 24 01:09 84 95 0724 01:08 85 94 0724 01:04 81 98 0724 01:03 88 94 072424 00:59 87 95 07/24/24 00:54 90 97 07/24/24 00:50 88 93 12/30/23 00:49 89 97 12/30/23 00:44 97 H 96 12/30/23 00:41 93 H 93 12/30/23 00:39 86 98 12/30/23 00:34 88 97 12/30/23 00:30 16 12/30/23 00:29 88 119/58 L 97 12/30/23 00:24 91 H 97 12/30/23 00:19 93 H 97 12/30/23 00:14 93 H 98 12/30/23 00:09 91 H 98 12/30/23 00:04 97 H 99 12/29/23 23:59 91 H 99 12/29/23 23:54 97 H 100 12/29/23 23:49 93 H 99 12/29/23 23:44 94 H 100 12/29/23 23:39 93 H 100 12/29/23 23:34 89 100 12/29/23 23:30 18 12/29/23 23:29 98.1 F 12/29/23 23:29 86 100 12/29/23 23:27 88 135/79 12/29/23 23:24 82 100 12/29/23 23:19 75 100 12/29/23 23:14 88 99 12/29/23 23:09 89 100 12/29/23 23:04 79 100 12/29/23 22:59 81 100 12/29/23 22:57 79 138/91 12/29/23 22:54 75 100 12/29/23 22:49 88 100 12/29/23 22:44 78 99 12/29/23 22:39 80 99 12/29/23 22:38 97 H 91 12/29/23 22:34 84 100 12/29/23 22:30 18 12/29/23 22:29 84 100 12/29/23 22:27 83 138/77 12/29/23 22:24 88 97 12/29/23 22:19 91 H 100 12/29/23 22:15 18 100 Room Air 12/29/23 22:14 84 100 12/29/23 22:09 77 100 12/29/23 22:04 82 99 12/29/23 22:00 84 139/83 12/29/23 21:59 90 98 12/29/23 21:47 84 100 12/29/23 21:30 18 12/29/23 21:27 98.1 F 18 124/71 PG Care Time/CCT Total # of Minutes Spent Total Time Spent with Patient: Total time spent is greater than 50% in coordination of care (as documented) at patient's floor/unit and/or counseling patient: Coding Level of Care Code None Diagnoses Preeclampsia in period O14.95
[2023-12-30] MEDS: SERTRALINE HCL 100 MG TABLET PO SCH (09:07)
[2023-12-30] MEDS: PANTOprazole 40 MG TAB PO SCH (09:09)
[2023-12-30] MEDS: oxyCODONE/ACETAMINOPHEN 5mg/325mg TAB PO PRN (13:25)
--- NOTE | 2023-12-31 07:25 | Obstetrical Progress Note ---
Date of Service December 31, 2023 Assessment & Plan (1) Preeclampsia in period: Plan: Zan is a 28-year-old 6 days status post section with readmission for preeclampsia. Doing well today. Blood pressures have been mostly normotensive with occasional mild range elevation. No treatable blood pressures since admission. Denying any preeclampsia symptoms and labs have been normal. Patient stable for discharge. Reviewed preeclampsia precautions and will plan for 1 week blood pressure check Admission and Anticipated Discharge Date Admission Date: December 29, 2023 Subjective Readmit for preeclampsia. Completed 24 hours of magnesium. Blood pressures have been mostly normotensive with occasional mild range elevation. Not currently on any blood pressure medications. Denying any preeclampsia symptoms. Physical Exam Constitutional: WD/WN, vitals as above Respiratory: normal respiratory effort; no respiratory distress and no labored breathing Cardiovascular: Extremities: no calf tenderness Gastrointestinal (Abdomen): Inspection/Auscultation: abdomen normal to inspection; abdomen not distended Percussion/Palpation: abdomen soft; abdomen nontender, no guarding and abdomen not rigid Genitourinary: OB Exam Abdomen: + fundal height Fundus: + firm and + relation to umbilicus (Below); not tender or not boggy Results & Data Vital Signs (Past 12 Hours) Vital Signs Temp Pulse Resp BP 12/31/23 07:14 75 128/71 12/31/23 04:54 36.8 C 18 12/31/23 04:54 75 141/79 H 12/30/23 23:23 36.5 C 18 12/30/23 23:23 18 12/30/23 23:21 64 132/74 PG Care Time/CCT Total # of Minutes Spent Total Time Spent with Patient: Total time spent is greater than 50% in coordination of care (as documented) at patient's floor/unit and/or counseling patient: Coding Level of Care Code 73850 SUB INP/OBS CARE 2/35MIN Diagnoses Preeclampsia in period O14.95
== END 2023-12-31 08:45 | disposition home or self-care (01) | DRG 776 ==
LOC: ED 15:28 → EDINP 18:45 → 4S1 20:59

== ENCOUNTER 2024-03-17 09:20 | Inpatient (IN) ==
--- NOTE | 2024-03-17 09:43 | Emergency Department Note ---
Impression & Plan Acute left flank pain, Pyelonephritis, Vomiting, History of obstruction of ureter ED Provider Note NAME: BIANCA ALCAZAR AGE: 29 SEX: F : 1995 ARRIVES VIA: Walk-In INFORMANT: [Patient] ED PROVIDER(S): [Garrison Escalona MD] CHIEF COMPLAINT: Flank pain HISTORY OF PRESENT ILLNESS: The patient is a 29-year-old female with a history of ureteral stones and urinary infections. She delivered a child by about 3 months ago. She did have to have a bilateral ureteral stents after the delivery for about a week. She states his stents have been out since. In the last week, she has noticed some increasing left flank pain. She has had some fevers, she has had nausea and vomiting. Things escalated in the last 24 hours and she presents for evaluation. She did notice that her urine is foul- smelling. The patient has been trying Tylenol at home for her symptoms. No cough or congestion. She does not seem to have any anterior abdominal pain. She does notice pain in both flanks actually but more so on the left. Of note, the patient is not breast-feeding. PMHx/PSHx/Social Hx: See Below PHYSICAL EXAM: GENERAL: Patient is in no acute distress. HEENT: No acute trauma, normocephalic atraumatic, mucous membranes moist, no nasal congestion. NECK: No stridor, no adenopathy, no meningismus, trachea is midline. LUNGS: Clear to auscultation bilaterally, no wheeze, no rhonchi, breath sounds equal. HEART: Mildly tachycardic, regular rhythm, no murmurs. ABDOMEN: Soft, nontender, no peritonitis. No distention. EXTREMITIES: No cyanosis, full range of motion of all the joints without pain or difficulty. NEUROLOGIC: Oriented x 3, no acute motor or sensory deficits, no focal weakness. SKIN: No jaundice, no diaphoresis. Back: Bilateral flank discomfort, more severe on the left. DIFFERENTIAL DIAGNOSIS: Pyelonephritis, hydronephrosis, ureteral stone, UTI, among others. EMERGENCY DEPARTMENT PROCEDURES: MEDICAL DECISION MAKING: There is no leukocytosis or concerning anemia. There is a normal platelet count. No renal failure or significant electrolyte abnormality. No concerning liver enzyme elevation. No evidence for pancreatitis. testing is negative. Urinalysis does show findings of infection, cultures pending. Renal ultrasound did not show any findings of hydronephrosis or ureteral obstruction. On exam, patient was not toxic in appearance. The patient received IV Phenergan and IV Zofran for nausea. An additional dose of IV Zofran was given for persistent nausea. She received IV morphine for pain, IV Toradol for pain. She was given a dose of IV or ertapenem. The patient presents with left flank pain. She has a complicated history when it comes to her urinary system. She has had resistant infections previously, she has had ESBL's. Looking at her records, she is allergic to Bactrim. I did talk with our pharmacist here in the ED. Ertapenem was recommended, oral antibiotics will likely not be very effective. I spoke with the patient, she is aware of her findings. At this point, the patient is going to be hospitalized for IV antibiotic therapy and symptom control. I did speak with urology about our workup and findings. They will follow along as consultants in the hospital. In short, it appears the patient has a pyelonephritis as the cause for her discomfort and complaints. Prior/Outside records/notes reviewed: None Imaging/x-ray results per my interpretation: Chronic Medical/Social conditions affecting care: Recent delivery and recent bilateral ureteral stent placement. Care/Management discussed with: Urology-Dr. Mack. Case management and the on-call hospitalist. 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 Class 3 obesity Hypokalemia (Acute) Acute flank pain (Acute) UTI (urinary tract infection) (Acute) Pyelonephritis (Acute) History of renal calculi (Acute) Acute left flank pain (Acute) Hyperparathyroidism (Acute) First trimester (Acute) Previous gastric bypass affecting in first trimester, antepartum Encounter for anatomic survey Encounter for supervision of normal in multigravida UTI (urinary tract infection) (Acute) Renal colic on right side (Acute) Nephrolithiasis (Acute) Depression Medical History Ovarian cyst Kidney stones GERD (gastroesophageal reflux disease) Surgical History Hx of cystoscopy w/ stent-04/2022 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 History of colonoscopy History of appendectomy 03/16/19: Grade 2 view, Veloz 2, ETT 7.5 atraumatic x 1. History of wisdom tooth extraction PONV (postoperative nausea and vomiting) Status post laparoscopic procedure REMOVED uterine surface endometriotic tissue Previous section 02/20/2017 Family History Uncle Diabetes Mother Kidney stones Breast cancer Hx of cholecystectomy Hypertension Father Hx of cholecystectomy Other No family history of adverse response to anesthesia Denies family history of Ovarian cancer Prostate cancer Colorectal cancer Social History Smoking Status: Never smoker Second Hand Exposure: No; Do You Dip or Chew Tobacco: No; Hx Alcohol Use: No Hx Substance Use: No Preferred Language: Romanian Communication Ability: Effective Talent Acquisition Manager Required: No Beliefs That Will Affect Care: None marital status: marital status details: Umberto gillespie ( [phone] Current Living Situation: Family and Significant Other Current Living Situation Comment: FOB and 7 year old son current occupational status: employed 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 Feels Safe at Home: Yes Assistive Devices: None Allergies Allergies Allergy/AdvReac Type Severity Reaction Status Date / Time sulfamethoxazole Allergy Intermediate HIVES Verified 03/17/24 09:50 trimethoprim Allergy Intermediate HIVES Verified 03/17/24 09:50 Home Meds Home Medications Medication Instructions Recorded Confirmed buspirone 10 mg tablet 10 mg PO HS 03/09/23 03/17/24 cholecalciferol (vitamin D3) 125 125 mcg PO DAILY 03/09/23 03/17/24 mcg (5,000 unit) capsule sertraline 100 mg tablet 100 mg PO DAILY 03/09/23 03/17/24 cyanocobalamin (vitamin B-12) 1,000 mcg IM USEASDIRECTD 07/10/23 03/17/24 1,000 mcg/mL injection solution vit no.133-ferrous 1 tab PO DAILY 11/02/23 03/17/24 fumarate 28 mg-folic acid 800 mcg tablet () omeprazole 20 mg capsule,delayed 20 mg PO DAILY 12/24/23 03/17/24 release ondansetron HCl 4 mg tablet 4 mg PO DIRECTED PRN Nausea And 12/24/23 03/17/24 Vomiting Previous Rx's Medication Instructions Recorded oxycodone 5 mg capsule 5 mg PO Q8H PRN pain #10 caps 12/28/23 norelgestromin 150 mcg-e.estradiol 1 patch transdermal Q7D #3 ea 02/29/24 35 mcg/24 hr weekly transderm patch (Xulane) Results & Data (ED) Vital Signs Vital Signs - 24 hr 03/17/24 09:24 03/17/24 11:18 03/17/24 12:58 Temperature 36.8 C Temperature Source Oral Pulse Rate 110 H Pulse Rate [Radial] 97 H 97 H Pulse Rhythm [Radial] Regular Regular Respiratory Rate 20 18 18 Respiratory Effort / Characteristics Non-Labored Spontaneous Non-Labored Non-Labored Respiratory Depth Normal Normal Normal Respiratory Pattern Regular Regular Blood Pressure 133/92 Blood Pressure [Left Arm] 123/86 128/85 Blood Pressure Mean 105 Blood Pressure Mean [Left Arm] 98 99 Pulse Oximetry 100 100 100 Oxygen Delivery Method Room Air Room Air Room Air Sepsis Recent Fever Within 48 Hours No Sepsis New/Unexplained Change in Mental Status N/A Sepsis Action Taken by Nursing No Action Required Home Medications Current Medication List: was personally reviewed by me Laboratory Data Attestation: I reviewed the patient's lab results. 03/17/24 09:40 03/17/24 09:40 Lab Results 03/17/24 03/17/24 Range/Units 09:35 09:40 WBC 5.78 (4.8-10.8) K/ul RBC 4.80 (4.20-5.40) M/uL Hgb 13.9 (12.0-16.0) g/dl Hct 41.4 (37.0-47.0) % MCV 86.3 (80.0-100.0) fL MCH 29.0 (25.0-34.0) pg MCHC 33.6 (32.0-36.0) g/dL RDW Std Deviation 47.1 H (36.4-46.3) fL RDW Coeff of [place] 15.1 H (11.5-14.5) % Plt Count 374 (130-400) K/uL MPV 9.6 (9.4-12.4) fL Immature Gran % (Auto) 0.2 % Neut % (Auto) 53.6 % Lymph % (Auto) 35.5 % [place] % (Auto) 7.8 % Eos % (Auto) 1.2 % Baso % (Auto) 1.7 % Neut # (Auto) 3.10 (1.40-6.50) K/uL Lymph # (Auto) 2.05 (1.20-3.40) K/uL [place] # (Auto) 0.45 (0.11-0.59) K/uL Eos # (Auto) 0.07 (0.00-0.50) K/uL Baso # (Auto) 0.10 (0.00-0.20) K/uL Immature Gran # (Auto) 0.01 (0.01-0.20) K/uL Sodium 141 (136-145) mmol/L Potassium 3.6 (3.5-5.1) mmol/L Chloride 105 (98-107) mmol/L Carbon Dioxide 28 (21-32) mmol/L Anion Gap 8 (3-11) BUN 15 (6-23) mg/dl Creatinine 0.73 (0.6-1.2) mg/dl Est Cr Clr Drug Dosing 124.3 ml/min eGFR 112.69 BUN/Creatinine Ratio 20.5 H (10-20) Glucose 98 (70-99(Fasting)) mg/dl Calcium 9.9 (8.6-10.3) mg/dl Total Bilirubin 0.4 (0.2-1.0) mg/dl AST 14 (13-39) U/L ALT 11 (7-52) U/L Alkaline Phosphatase 83 (34-104) U/L Total Protein 8.3 (6.0-8.3) gm/dl Albumin 4.9 (3.4-5.0) gm/dl Globulin 3.4 (2.5-4.0) gm/dl Albumin/Globulin Ratio 1.4 (0.9-2) Lipase 31 (11-82) U/L HCG, Qual Negative (Negative) Urine Color Yellow Urine Appearance Turbid A (Clear) Urine pH 5.5 (4.5-7.5) Ur Specific [place] 1.023 (1.000-1.030) Urine Protein Trace H (Negative) Urine Glucose (UA) Negative (Negative) Urine Ketones Negative (Negative) Urine Blood 1+ H (Negative) Urine Nitrite Positive A (Negative) Urine Bilirubin Negative (Negative) Urine Urobilinogen Negative (Negative) Ur Leukocyte Esterase 2+ H (Negative) Urine WBC (Auto) >50 H (0-5) /hpf Urine RBC (Auto) 0-2 (0-2) /hpf U Hyaline Cast (Auto) 11-20 H (0-2) /lpf U Epithel Cells (Auto) >20 H (0-2) /hpf Urine Bacteria (Auto) 4+ H (None Seen) Calcium Oxalate Crystal Present A (None Prsent) Hyaline Casts Present A (None Presnt) /lpf Urine Test Negative (Negative) Administered Medications Morphine Sulfate (Morphine Sulfate 2 Mg/Ml Carp) 2 mg IV Q30M PRN PRN Reason: Pain Stop: 03/31/24 09:37 Last Admin: 03/17/24 12:37 Dose: 2 mg Documented By: Admin: 03/17/24 11:15 Dose: 2 mg Documented By: CAITLIN Discontinued Medications Promethazine HCl (Phenergan) 6.25 mg in 50.25 mls @ 201 mls/hr IV NOW STA Stop: 03/17/24 09:52 Last Infusion: 03/17/24 10:37 Dose: Infused Documented By: Admin: 03/17/24 09:59 Dose: 201 mls/hr Documented By: CAITLIN Ertapenem (Invanz 1000mg) 1,000 mg in 10 mls @ 2 mls/min IV NOW STA Stop: 03/17/24 10:58 Last Admin: 03/17/24 11:12 Dose: 2 mls/min Documented By: CAITLIN Ketorolac Tromethamine (Ketorolac Tromethamine 15 Mg/Ml Vial) 15 mg IV NOW STA Stop: 03/17/24 09:39 Last Admin: 03/17/24 09:54 Dose: 15 mg Documented By: CAITLIN Morphine Sulfate (Morphine Sulfate 2 Mg/Ml Carp) 2 mg IV NOW STA Stop: 03/17/24 09:39 Last Admin: 03/17/24 09:55 Dose: 2 mg Documented By: CAITLIN Ondansetron HCl (Ondansetron Inj 2 Mg/Ml 2 Ml Vial) 4 mg IV NOW STA Stop: 03/17/24 09:39 Last Admin: 03/17/24 09:54 Dose: 4 mg Documented By: CAITLIN Ondansetron HCl (Ondansetron Inj 2 Mg/Ml 2 Ml Vial) 4 mg IV NOW STA Stop: 03/17/24 11:28 Last Admin: 03/17/24 11:36 Dose: 4 mg Documented By: CAITLIN Imaging Data Radiologist's Impression: Renal Ultrasound 03/17/24 09:29 RENAL ULTRASOUND HISTORY: Acute bilateral flank pain in a patient with history of kidney stones flank pain, hist of stents COMPARISON: 12/24/2023 FINDINGS: Right kidney: 10.8 x 4.3 x 5.1 cm.No hydronephrosis. There is a cyst of the superior pole measuring 1.2 x 1.2 x 1.1 cm, not imaged on prior. Normal corticomedullary differentiation and cortical thickness. Left kidney: 10.3 x 5.7 x 4.9 cm. No hydronephrosis. Nonobstructing calculi measure up to 5 mm. Normal corticomedullary differentiation and cortical thickness. Bladder: Partial distention with mild wall thickening. The bilateral ureteral jets were identified. IMPRESSION: 1. No hydronephrosis. 2. Left renal calculus. 3. Decompressed urinary bladder. ACT 112: Negative or not required by law. Electronically signed by: Jorge Pineda M.D. 03/17/2024 11:53 AM Discharge Plan Visit Data Chief Complaint: Flank Pain Stated Complaint: FLANK PAIN, FEVER ED Provider: Garrison Escalona Discharge Problem: Acute left flank pain, Pyelonephritis, Vomiting, History of obstruction of ureter Patient Disposition: Admitted As Inpatient Condition: Fair Forms Stand Alone Forms: My [facility] Prescriptions Prescriptions: No Action norelgestromin-ethin.estradiol [Xulane] 150-35 mcg/24 hr patch weekly 1 patch transdermal Q7D Qty: 3 2RF Rx Instructions: apply once weekly for 3 weeks of a 4-week cycle sertraline 100 mg tablet 100 mg PO DAILY buspirone 10 mg tablet 10 mg PO HS cholecalciferol (vitamin D3) 125 mcg (5,000 unit) capsule 125 mcg PO DAILY ondansetron HCl 4 mg tablet 4 mg PO DIRECTED PRN (Reason: Nausea And Vomiting) omeprazole 20 mg capsule,delayed release(DR/EC) 20 mg PO DAILY oxycodone 5 mg capsule 5 mg PO Q8H PRN (Reason: pain) Qty: 10 0RF cyanocobalamin (vitamin B-12) 1,000 mcg/mL Solution 1,000 mcg IM USEASDIRECTD Rx Instructions: [id number] 28-800 mg-mcg Tablet 1 tab PO DAILY Referrals Referrals: Dimas Doty DO [Primary Care Provider] - Discharge Problem: Vomiting Qualifiers: Vomiting type: unspecified Nausea presence: with nausea Qualified Code(s): R 11.2 - Nausea with vomiting, unspecified
[2024-03-17] MEDS: ONDANSETRON INJ 2 MG/ML 2 ML VIAL IV STA ×2 (09:54→11:36)
[2024-03-17] MEDS: KETOROLAC TROMETHAMINE 15 MG/ML VIAL IV STA (09:54)
[2024-03-17] MEDS: MoRPHine SULFATE 2 MG/ML CARP IV STA (09:55)
[2024-03-17] MEDS: PROMETHAZINE 6.25 MG/50.25 ML BAG IV STA (09:59)
[2024-03-17 10:13] LABS: Basophils % (auto) 1.7 %; Eosinophils # (auto) 0.07 K/uL (0.00-0.50); Eosinophils % (auto) 1.2 %; Hematocrit (blood only) 41.4 % (37.0-47.0); Hemoglobin 13.9 g/dl (12.0-16.0); Immature Granulocytes # (auto) 0.01 K/uL (0.01-0.20); Immature Granulocytes % (auto) 0.2 %; Lymphocytes # (auto) 2.05 K/uL (1.20-3.40); Lymphocytes % (auto) 35.5 %; Mean Corpuscular Hgb Conc 33.6 g/dL (32.0-36.0); Mean Corpuscular Volume 86.3 fL (80.0-100.0); Mean Platelet Volume 9.6 fL (9.4-12.4); Monocytes # (auto) 0.45 K/uL (0.11-0.59); Monocytes % (auto) 7.8 %; Neutrophils % (auto) 53.6 %; Platelet Count 374 K/uL (130-400); RDW Coefficient of Variation 15.1 % (11.5-14.5); RDW Standard Deviation 47.1 fL (36.4-46.3); White Blood Count 5.78 K/ul (4.8-10.8)
[2024-03-17 10:29] LABS: Albumin Globulin Ratio 1.4 (0.9-2); Albumin Level 4.9 gm/dl (3.4-5.0); BUN Creatinine Ratio 20.5 (10-20); Bilirubin,Total 0.4 mg/dl (0.2-1.0); Calcium 9.9 mg/dl (8.6-10.3); Creatinine Clr Calc Pharmacy 124.3 ml/min; Globulin 3.4 gm/dl (2.5-4.0); Potassium 3.6 mmol/L (3.5-5.1); Total Protein 8.3 gm/dl (6.0-8.3)
[2024-03-17 10:38] LABS: Pregnancy Test, Serum Negative (Negative)
[2024-03-17 10:40] LABS: Appearance Urine Turbid (Clear); Bacteria Urine Automated 4+ (None Seen); Bilirubin Urine Negative (Negative); Blood Urine 1+ (Negative); Calcium Oxalate Crystals Urine Present (None Prsent); Color Urine Yellow; Epithelial Cell Urine Auto >20 /hpf (0-2); Glucose Urine UA Negative (Negative); Hyaline Casts Urine Present /lpf (None Presnt); Ketones Urine Negative (Negative); Leukocyte Esterase Urine 2+ (Negative); Nitrite Urine Positive (Negative); Protein Urine Trace (Negative); RBC Urine Automated 0-2 /hpf (0-2); Specific Gravity Urine 1.023 (1.000-1.030); Urobilinogen Urine Negative (Negative); WBC Urine Automated >50 /hpf (0-5); pH Urine 5.5 (4.5-7.5)
[2024-03-17] MEDS: ERTAPENEM 1000MG 1,000 MG/10 ML SYR IV STA (11:12)
[2024-03-17] MEDS: MoRPHine SULFATE 2 MG/ML CARP IV PRN ×2 (11:15→20:20)
--- NOTE | 2024-03-17 11:55 | Ultrasound Report ---
RENAL ULTRASOUND HISTORY: Acute bilateral flank pain in a patient with history of kidney stones flank pain, hist of s tents COMPARISON: 12/24/2023 FINDINGS: Right kidney: 10.8 x 4.3 x 5.1 cm.No hydronephrosis. There is a cyst of the superior pole measuring 1 .2 x 1.2 x 1.1 cm, not imaged on prior. Normal corticomedullary differentiation and cortical thicknes s. Left kidney: 10.3 x 5.7 x 4.9 cm. No hydronephrosis. Nonobstructing calculi measure up to 5 mm. [place] l corticomedullary differentiation and cortical thickness. Bladder: Partial distention with mild wall thickening. The bilateral ureteral jets were identified. IMPRESSION: 1. No hydronephrosis. 2. Left renal calculus. 3. Decompressed urinary bladder. ACT 112: Negative or not required by law. Electronically signed by: Jorge Pineda M.D. 03/17/2024 11:53 AM
--- NOTE | 2024-03-17 12:45 | History & Physical Report ---
Date of Service March 17, 2024 Assessment & Plan (1) Complicated UTI (urinary tract infection): Plan Zan Snell is a 29y/o F with PMHx significant for hyperparathyroidism, left- sided ovarian cyst, GERD with esophagitis, IBS with both constipation and diarrhea, nonalcoholic fatty liver disease, iron deficiency anemia, depression, morbid obesity s/p gastric bypass, dysmenorrhea, complicated UTIs and recurrent kidney stones who presented to the ED for evaluation of left flank pain with associated fevers and nausea/vomiting. Patient recently had bilateral uteroscopy with laser lithotripsy and stone basket extraction back in December 2023. She had extensive stone disease bilaterally with the larger stones on the right and obstructing stone on the left. Patient has been dealing with severe obstructive issues and recurrent UTIs with multidrug resistant infections. She has had episodes of VRE and Klebsiella growing in her urine in addition to ESBL E. coli. Patient reports that she has had to have a PICC line placed in the past for IV antibiotics due to a complicated UTI. Complicated UTI: No leukocytosis, labs rather unremarkable. UA suggestive of infection. Urine test negative. Bilateral renal ultrasound with no hydronephrosis, did note a nonobstructing left renal calculus measuring up to 5mm. S/p 1g IV ertapenem, 6mg IV morphine, 15mg IV Toradol and antiemetics in the ED. Urology consulted. No plan for intervention at this time. Urine culture pending. Continue IV ertapenem pending urine culture result. Plan to hold off on CTAP at this time given that there are no abnormal findings on the renal ultrasound and the patient is clinically stable. If patient were to clinically decompensate, recommendation would be to get a CTAP for further evaluation. Continue with pain control, as needed antiemetics. Patient has previously followed with Urology at [facility]. Other Chronic Medical Conditions: Depression, GERD --> Can continue home medications for these specific conditions. DVT Prophylaxis: SCDs/TEDs for now. Code Status: FULL CODE PCP: Dimas Doty DO Disposition: Observation in Med/Surg Patient seen in collaboration with Dr. Momin. Please see addendum. I spent a total of 55 minutes coordinating, documenting, and providing care for this patient excluding time spent in the performance of separately billed services. This included personally reviewing all current laboratories and imaging studies, medical reconciliation, outpatient chart review and discussion with specialists. This chart was completed in part utilizing Speech Voice Recognition Software. Grammatical errors, random word insertions, pronoun errors, and incomplete sentences are an occasional consequence of this system due to software limitations, ambient noise, and hardware issues. Any formal questions or concerns about the content, text, or information contained within the body of this dictation should be directly addressed to the provider for clarification. History of Present Illness Chief Complaint: Left Flank Pain, N/F & Fever Primary Care Provider: DO Zan Hearn Channnig is a 29y/o F with PMHx significant for hyperparathyroidism, left- sided ovarian cyst, GERD with esophagitis, IBS with both constipation and diarrhea, nonalcoholic fatty liver disease, iron deficiency anemia, depression, morbid obesity s/p gastric bypass, dysmenorrhea, complicated UTIs and recurrent kidney stones who presented to the ED for evaluation of left flank pain with associated fevers and nausea/vomiting. History obtained from the patient and associated chart review. Patient recently had bilateral uteroscopy with laser lithotripsy and stone basket extraction back in December 2023. She had extensive stone disease bilaterally with the larger stones on the right and obstructing stone on the left. Patient has been dealing with severe obstructive issues and recurrent UTIs with multidrug resistant infections. She has had episodes of VRE and Klebsiella growing in her urine in addition to ESBL E. coli. Patient follows with Urology at [facility]. Patient started to feel some fatigue about a week ago and has been dealing with left-sided flank pain for the past few days that has gotten progressively worse. Reports the pain is sharp and radiates down into her left groin region. She started experiencing some fevers and chills in addition to nausea/vomiting over the past few days. She has also noted some blood in her urine. Patient reports that her fever reached as high as 100.6F even after taking Tylenol. Her appetite has been significantly decreased over the past few days. Patient reports that she has had to have a PICC line placed in the past for IV antibiotics due to a complicated UTI. Denies any chest pain or SOB. Notes that her urine is foul-smelling. She gave to her second child back in December. Patient is not breast-feeding. Allergies Allergy/AdvReac Type Severity Reaction Status Date / Time sulfamethoxazole Allergy Intermediate HIVES Verified 03/17/24 09:50 trimethoprim Allergy Intermediate HIVES Verified 03/17/24 09:50 Home Medications Medication Instructions Recorded Confirmed Type buspirone 10 mg tablet 10 mg PO HS 03/09/23 03/17/24 History cholecalciferol (vitamin D3) 125 125 mcg PO DAILY 03/09/23 03/17/24 History mcg (5,000 unit) capsule sertraline 100 mg tablet 100 mg PO DAILY 03/09/23 03/17/24 History cyanocobalamin (vitamin B-12) 1,000 mcg IM USEASDIRECTD 07/10/23 03/17/24 History 1,000 mcg/mL injection solution vit no.133-ferrous 1 tab PO DAILY 11/02/23 03/17/24 History fumarate 28 mg-folic acid 800 mcg tablet () omeprazole 20 mg capsule,delayed 20 mg PO DAILY 12/24/23 03/17/24 History release ondansetron HCl 4 mg tablet 4 mg PO DIRECTED PRN Nausea And 12/24/23 03/17/24 History Vomiting oxycodone 5 mg capsule 5 mg PO Q8H PRN pain #10 caps 12/28/23 03/17/24 Rx norelgestromin 150 mcg-e.estradiol 1 patch transdermal Q7D #3 ea 02/29/24 03/17/24 Rx 35 mcg/24 hr weekly transderm patch (Xulane) Past Med/Surg History Problem List Complicated UTI (urinary tract infection) History of obstruction of ureter (Acute) Vomiting (Acute) Pyelonephritis (Acute) Acute left flank pain (Acute) Preeclampsia in period Headache (Acute) Postoperative pain S/P section Ureteral stent present Encounter for assessment Acute right flank pain (Acute) (Acute) 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 VRE (vancomycin resistant enterococcus) culture positive Class 3 obesity Hypokalemia (Acute) Acute flank pain (Acute) UTI (urinary tract infection) (Acute) Pyelonephritis (Acute) History of renal calculi (Acute) Acute left flank pain (Acute) Hyperparathyroidism (Acute) First trimester (Acute) Previous gastric bypass affecting in first trimester, antepartum Encounter for anatomic survey Encounter for supervision of normal in multigravida UTI (urinary tract infection) (Acute) Renal colic on right side (Acute) Nephrolithiasis (Acute) Depression Medical History Ovarian cyst Kidney stones GERD (gastroesophageal reflux disease) Surgical History Hx of cystoscopy w/ stent-04/2022 [facility] History of Otilia-en-Y gastric bypass 10/04/21 [facility] [place] History of cholecystectomy 06/10/19: Grade 1 view, MAC 3, ETT 7.5 atraumatic x 1. History of colonoscopy History of appendectomy 03/16/19: Grade 2 view, Veloz 2, ETT 7.5 atraumatic x 1. History of wisdom tooth extraction PONV (postoperative nausea and vomiting) Status post laparoscopic procedure REMOVED uterine surface endometriotic tissue Previous section 02/20/2017 Family History Uncle Diabetes Mother Kidney stones Breast cancer Hx of cholecystectomy Hypertension Father Hx of cholecystectomy Other No family history of adverse response to anesthesia Denies family history of Ovarian cancer Prostate cancer Colorectal cancer Social History Smoking Status: Never smoker Second Hand Exposure: No; Do You Dip or Chew Tobacco: No; Hx Alcohol Use: No Hx Substance Use: No Preferred Language: Sami Communication Ability: Effective Layout Worker Required: No Beliefs That Will Affect Care: None marital status: marital status details: Umberto gillespie ( 28) [phone] Current Living Situation: Significant Other Current Living Situation Comment: FOB and 7 year old son current occupational status: 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 Physical Exam Physical Exam: Please refer to Dr. Momin's addendum for physical examination findings. Results & Data Results & Data Vital Signs (Past 12 Hours) Vital Signs Temp Pulse Pulse Resp BP BP Pulse Ox 03/17/24 11:18 97 H 18 123/86 100 03/17/24 09:24 36.8 C 110 H 20 133/92 100 O2 Del Method 03/17/24 11:18 Room Air 03/17/24 09:24 Room Air Laboratory Results Short CBC 03/17/24 Range/Units 09:40 WBC 5.78 (4.8-10.8) K/ul Hgb 13.9 (12.0-16.0) g/dl Hct 41.4 (37.0-47.0) % Plt Count 374 (130-400) K/uL BMP 03/17/24 09:40 Sodium 141 Potassium 3.6 Chloride 105 Carbon Dioxide 28 BUN 15 Creatinine 0.73 Glucose 98 Calcium 9.9 Liver Function 03/17/24 Range/Units 09:40 Total Bilirubin 0.4 (0.2-1.0) mg/dl AST 14 (13-39) U/L ALT 11 (7-52) U/L Alkaline Phosphatase 83 (34-104) U/L Albumin 4.9 (3.4-5.0) gm/dl Urine 03/17/24 Range/Units 09:35 Urine Color Yellow Urine Appearance Turbid A (Clear) Urine pH 5.5 (4.5-7.5) Ur Specific [place] 1.023 (1.000-1.030) Urine Protein Trace H (Negative) Urine Glucose (UA) Negative (Negative) Diagnostic Findings Renal Ultrasound 03/17/24 09:29 RENAL ULTRASOUND HISTORY: Acute bilateral flank pain in a patient with history of kidney stones flank pain, hist of stents COMPARISON: 12/24/2023 FINDINGS: Right kidney: 10.8 x 4.3 x 5.1 cm.No hydronephrosis. There is a cyst of the superior pole measuring 1.2 x 1.2 x 1.1 cm, not imaged on prior. Normal corticomedullary differentiation and cortical thickness. Left kidney: 10.3 x 5.7 x 4.9 cm. No hydronephrosis. Nonobstructing calculi measure up to 5 mm. Normal corticomedullary differentiation and cortical thickness. Bladder: Partial distention with mild wall thickening. The bilateral ureteral jets were identified. IMPRESSION: 1. No hydronephrosis. 2. Left renal calculus. 3. Decompressed urinary bladder. ACT 112: Negative or not required by law. Electronically signed by: Jorge Pineda M.D. 03/17/2024 11:53 AM Medications Administered Morphine Sulfate (Morphine Sulfate 2 Mg/Ml Carp) 2 mg IV Q30M PRN PRN Reason: Pain Stop: 03/31/24 09:37 Last Admin: 03/17/24 12:37 Dose: 2 mg Documented By: Admin: 03/17/24 11:15 Dose: 2 mg Documented By: CAITLIN Discontinued Medications Promethazine HCl (Phenergan) 6.25 mg in 50.25 mls @ 201 mls/hr IV NOW STA Stop: 03/17/24 09:52 Last Infusion: 03/17/24 10:37 Dose: Infused Documented By: Admin: 03/17/24 09:59 Dose: 201 mls/hr Documented By: CAITLIN Ertapenem (Invanz 1000mg) 1,000 mg in 10 mls @ 2 mls/min IV NOW STA Stop: 03/17/24 10:58 Last Admin: 03/17/24 11:12 Dose: 2 mls/min Documented By: CAITLIN Ketorolac Tromethamine (Ketorolac Tromethamine 15 Mg/Ml Vial) 15 mg IV NOW STA Stop: 03/17/24 09:39 Last Admin: 03/17/24 09:54 Dose: 15 mg Documented By: CAITLIN Morphine Sulfate (Morphine Sulfate 2 Mg/Ml Carp) 2 mg IV NOW STA Stop: 03/17/24 09:39 Last Admin: 03/17/24 09:55 Dose: 2 mg Documented By: CAITLIN Ondansetron HCl (Ondansetron Inj 2 Mg/Ml 2 Ml Vial) 4 mg IV NOW STA Stop: 03/17/24 09:39 Last Admin: 03/17/24 09:54 Dose: 4 mg Documented By: CAITLIN Ondansetron HCl (Ondansetron Inj 2 Mg/Ml 2 Ml Vial) 4 mg IV NOW STA Stop: 03/17/24 11:28 Last Admin: 03/17/24 11:36 Dose: 4 mg Documented By: CAITLIN Code Status & VTE Plan Code Status FULL CODE Supervising Physician Co-Signing Physician Notes Patient is a 29-year-old female with history of hyperparathyroidism, GERD, irritable bowel disease, nephrolithiasis and other medical problems presents with worsening left flank pain associated with fever, nausea, vomiting. Patient had bilateral lithotripsy with stone extraction in December 2023 and has history of ESBL E. coli, VRE Klebsiella UTI in the past. Please review HPI for complete details of presentation. I personally reviewed blood work and imaging studies. Renal ultrasound showed no signs of hydronephrosis. Noted left renal calculus. Urinalysis suggestive of UTI. Physical Exam: Vitals signs as noted above General Appearance:Moderately built and nourished, no apparent distress Head: normocephalic, Atraumatic Eyes: normal inspection, EOMI Neck: supple, Trachea midline Respiratory/Chest: Normal breath sounds, CTA, No accessory muscle use Cardiovascular: S1, S2, No murmur Abdomen/GI:Soft, L flank tender, Bowel sounds present Extremities/Musculoskeletal:normal inspection, no edema Neurologic/Psych:AAOX3, grossly no focal neurological deficits Skin: normal color, warm Complicated UTI Urine culture pending Started on ertapenem Gentle IV fluids Pain control Urology consulted. I personally interviewed and examined at bedside. Patient's care is coordinated with Catrina Bach PA-C. I have reviewed the advanced practitioner's docum entation, and I agree with plan of care. Please refer to the documentation above for details of patient's presentation and for discussion of other issues. I spent a total [id number] coordinating, documenting, and providing care for this patient excluding time spent in the performance of separately billed services.
[2024-03-17 13:29] LABS: Pregnancy Test, Urine Negative (Negative)
--- NOTE | 2024-03-17 13:36 | Urology Consultation ---
<Statement entered by Lenard Mack MD - 03/18/24 06:53> I have discussed Ms. Snell's case with PATRICIA Guajardo and agree with the above documentation. Renal ultrasound with no hydronephrosis suggesting no downstream obstruction. Agree with treatment with antibiotics for pyelonephritis. We will hold off CT scan for now to try to minimize her total cumulative radiation. If she fails to improve or starts to decompensate, would recommend evaluation with CT scan for any obstruction of the urinary tract. -Lenard Mack MD. Date of Consultation March 17, 2024 Assessment & Plan (1) Complicated UTI (urinary tract infection): (2) History of obstruction of ureter: (3) Vomiting: (4) Acute left flank pain: Plan 29-year-old female seen in the ER for acute left flank pain, left abdominal pressure, associated nausea vomiting and fevers. Patient slightly tachycardic otherwise hemodynamically stable Renal ultrasound shows no hydronephrosis with stable left renal calculus Creatinine 0.73, WBCs 5.78, hemoglobin 13.9 -all within normal parameters Urine culture is pending Plan: No plan for intervention at this time Continue IV antibiotics and trend according to culture data At this time we will hold off on the CT scan as there are no abnormal findings on renal ultrasound and patient is clinically stable If patient clinically decompensates can get a CT for further evaluation Continue pain management and other supportive care per primary team Other medical management per primary team will follow History of Present Illness History of Present Illness 29-year-old female who reported to the ER in 03/17/2024 with left flank pain, nausea/vomiting, and fevers. Patient recently had complicated with multiple renal stones where she was seen at an outside facility, she had multiple MDR infections during her . On 12/25/[address] Treadwell: cystoscopy with bilateral ureteroscopy, stone treatment, and stent placement for obstruction issues with bilateral stones, severe MDR infections, and recent post-/Delivery by . Tethered stents were removed on 12/28/2023. Labs reviewed 03/17/2020 Creatinine 0.73 Glucose 98 WBCs 5.78 Hemoglobin 13.9 Renal ultrasound completed on 03/17/2024 shows no hydronephrosis bilaterally, left renal calculus up to 5 mm, partial distention of the bladder with mild wall thickening. Bilateral ureteral jets identified. In the ER she has been afebrile and normotensive, slightly tachycardic. Urine culture is still pending. No blood cultures were completed. Patient assessed at bedside. She is sitting comfortably in bed. She is complaining of some moderate left flank pain, somewhat relieved by pain medications. She states she has been feeling well and after her surgery with Dr. Treadwell up until approximately a week ago. A week ago she again to develop "stone pain/pressure" on the left side in the flank and lower left abdominal area. This was similar pain to when she was passing the stone. Two days ago she began to develop fevers associated with nausea and vomiting and gross hematuria. Due to her significant stone history she elected to come to low [place]. She denies any UTI symptoms including frequency, dysuria. Allergies Allergy/AdvReac Type Severity Reaction Status Date / Time sulfamethoxazole Allergy Intermediate HIVES Verified 03/17/24 09:50 trimethoprim Allergy Intermediate HIVES Verified 03/17/24 09:50 Home Medications Medication Instructions Recorded Confirmed Type buspirone 10 mg tablet 10 mg PO HS 03/09/23 03/17/24 History cholecalciferol (vitamin D3) 125 125 mcg PO DAILY 03/09/23 03/17/24 History mcg (5,000 unit) capsule sertraline 100 mg tablet 100 mg PO DAILY 03/09/23 03/17/24 History cyanocobalamin (vitamin B-12) 1,000 mcg IM USEASDIRECTD 07/10/23 03/17/24 History 1,000 mcg/mL injection solution vit no.133-ferrous 1 tab PO DAILY 11/02/23 03/17/24 History fumarate 28 mg-folic acid 800 mcg tablet () omeprazole 20 mg capsule,delayed 20 mg PO DAILY 12/24/23 03/17/24 History release ondansetron HCl 4 mg tablet 4 mg PO DIRECTED PRN Nausea And 12/24/23 03/17/24 History Vomiting oxycodone 5 mg capsule 5 mg PO Q8H PRN pain #10 caps 12/28/23 03/17/24 Rx norelgestromin 150 mcg-e.estradiol 1 patch transdermal Q7D #3 ea 02/29/24 03/17/24 Rx 35 mcg/24 hr weekly transderm patch (Xulane) Patient History Medical History Ovarian cyst Kidney stones GERD (gastroesophageal reflux disease) Surgical History Hx of cystoscopy w/ stent-04/2022 [facility] History of Otilia-en-Y gastric bypass 10/04/21 [facility] [place] History of cholecystectomy 06/10/19: Grade 1 view, MAC 3, ETT 7.5 atraumatic x 1. History of colonoscopy History of appendectomy 03/16/19: Grade 2 view, Veloz 2, ETT 7.5 atraumatic x 1. History of wisdom tooth extraction PONV (postoperative nausea and vomiting) Status post laparoscopic procedure REMOVED uterine surface endometriotic tissue Previous section 02/20/2017 Family History Uncle Diabetes Mother Kidney stones Breast cancer Hx of cholecystectomy Hypertension Father Hx of cholecystectomy Other No family history of adverse response to anesthesia Denies family history of Ovarian cancer Prostate cancer Colorectal cancer Social History Smoking Status: Never smoker Second Hand Exposure: No; Do You Dip or Chew Tobacco: No; Hx Alcohol Use: No Hx Substance Use: No Preferred Language: Qatari Communication Ability: Effective 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 Required: No Beliefs That Will Affect Care: None marital status: marital status details: Umberto gillespie ( 28) [phone] Current Living Situation: Family and Significant Other Current Living Situation Comment: FOB and 7 year old son current occupational status: 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 Safe at Home: Yes Assistive Devices: None Review of Systems Constitutional: as per Subjective / HPI Genitourinary: as per Subjective / HPI Physical Exam Constitutional: well developed and well nourished; no acute distress Respiratory: normal respiratory effort and able to speak in complete sentences Musculoskeletal: Extremities: extremities normal to inspection Psychiatric: Orientation: alert and oriented x 3 Results & Data Vital Signs (Past 12 Hours) Vital Signs Temp Pulse Pulse Resp BP BP Pulse Ox 03/17/24 12:58 97 H 18 128/85 100 03/17/24 11:18 97 H 18 123/86 100 03/17/24 09:24 36.8 C 110 H 20 133/92 100 O2 Del Method 03/17/24 12:58 Room Air 03/17/24 11:18 Room Air 03/17/24 09:24 Room Air PG Care Time/CCT Total # of Minutes Spent Total Time Spent with Patient: Total time spent is greater than 50% in coordination of care (as documented) at patient's floor/unit and/or counseling patient: Coding Level of Care Code 80746 IN/OBS CONSULT LVL 3,45M Diagnoses Complicated UTI (urinary tract infection) N39.0 History of obstruction of ureter Z87.448 Vomiting R11.2 Nausea presence: with nausea Vomiting type: unspecified Acute left flank pain R10.9 (3) Vomiting Nausea presence: with nausea Vomiting type: unspecified Qualified Code(s): R11.2 - Nausea with vomiting, unspecified
[2024-03-17] MEDS: PROMETHAZINE 6.25 MG/50.25 ML BAG IV ONE (15:02)
[2024-03-17] MEDS ORDERED: POLYETHYLENE (MIRALAX) 17 GM PACK PO PRN (16:41)
[2024-03-17] MEDS ORDERED: ONDANSETRON INJ 2 MG/ML 2 ML VIAL IV PRN (16:41)
[2024-03-17] MEDS: KETOROLAC 30 MG/ML VIAL IV PRN (17:14)
[2024-03-17] MEDS: SODIUM CHLORIDE 0.9% 500 ML IV SCH (17:34)
[2024-03-17] MEDS: ONDANSETRON INJ 2 MG/ML 2 ML VIAL IV PRN (18:39)
--- OUTSIDE RECORDS SUMMARY | 2024-03-17 18:39 | External Medical Summary | Summary of Care ---
Author Name Unknown Organization [facility] Address [address] [place] [address] Phone [phone] Care Team Providers Care Installations Inspector Name Role Phone Levar Ordonez DO Primary Care Provider [phone] Reason for Referral * Medication Prior Authorization - Closed Specialty Diagnoses / Procedures Referred By Rosendo trujillo Referred To Contact Diagnoses Kidney stone Levar Ordonez DO [address] [place] [address] Referral ID Status Reason Start Date Expiration Date Visits Re quested Visits Authorized [id number] Closed [phone] Reason for Visit * Reason Onset Date Comments Medication Refill 03/16/2024 Encounter Details Date Type Department Care Team (Late st Contact Info) Description 03/16/2024 Refill Family Practice [facility] [address] [place] [address] Levar Ordonez DO [address] [place] [address] Kidney stone Allergies Active Allergy Reactions Criticality Noted Date Comments Prochlorperazine Psych complications 06/12/2020 Probably dystonic reaction. The patient does tolerate Phenergan Morphine Hives Low 03/20/2019 Pt feels the rash may have been from tape at the IV site. Sulfamethoxazole Hives High 03/03/2021 Trimethoprim Hives High 05/02/2018 documented as of this encounter (statuses as of 03/16/2024) Medications Medication Sig Dispensed Refills Start Date [...] BY MOUTH IN THE MORNING. 30 Tablet 11/26/2023 Active busPIRone HCl 10 MG Oral Tablet [...] 6 hours as needed for Pain, Moderate. 30 Tablet 01/26/2024 Active Rizatriptan Benzoate 5 MG Oral Tablet Take 1 Tablet by mouth as needed for Migraine. May repeat in 2 hours if needed 10 Tablet 02/29/2024 Active Gabapentin 300 MG Oral Capsule (Neurontin) Take 1 Capsule by mouth in the morning and 1 Capsule at noon and 1 Capsule before bedtime. 90 Capsule 03/01/2024 Active Ondansetron HCl 4 MG Oral Tablet Take 1 Tablet by mouth every 8 hours as needed for Nausea. 20 Tablet 03/16/2024 Active oxyCODONE-Acetamin ophen 5-325 MG Oral Tablet (Percocet)Indicati ons:Kidney stone Take 1 Tablet by mouth every 6 hours as needed for Pain, Severe. 40 Tablet 03/16/2024 Active Ondansetron HCl 4 MG Oral Tablet Take 1 Tablet by mouth every 8 hours as needed for Nausea. 20 Tablet 02/15/2024 03/16/2024 Discontinued (Refill) oxyCODONE-Acetamin ophen 5-325 MG Oral Tablet (Percocet)Indicati ons:Kidney stone Take 1 Tablet by mouth every 6 hours as needed for Pain, Severe. 40 Tablet 03/09/2024 03/16/2024 Discontinued (Refill) documented as of this encounter (statuses as of 03/16/2024) Active Problems Problem Noted Date Diagnosed Date Unspecified ovarian cyst, left side 12/18/2023 Bilateral nephrolithiasis 12/08/2023 Low grade squamous intraepit helial lesion (LGSIL) on cervical Pap smear 08/13/2023 Cervical high risk human pap illomavirus (HPV) DNA test positive 08/13/2023 Previous section co mplicating , antepartum condition or complication 08/13/2023 VRE (vancomycin resistant enterococcus) culture positive 08/10/2023 Encounter for adjustment and management of vascular access device 08/07/2023 Iron deficiency 08/01/2023 Hyperparathyroidism 08/01/2023 Hydronephrosis of right kidney 08/01/2023 Intestinal postoperative nonabsorption 3 Other dietary vitamin B12 deficiency anemia 10/06 History of gastric bypass 02/11/2022 Obesity, Class III, BMI 40-49.9 (morbid obesity) 10/05/2021 NAFLD (nonalcoholic fatty liver disease) 022 Menorrhagia with regular cycle 04/16/2021 [employer] [employer] OTHER*[id number] 01/24/2021 Gastroesophageal reflux disease with esophagitis 01/04/2019 Recurrent major depressive disorder, in full rem ission 01/04/2019 Irritable bowel syndrome wit h both constipation and diarrhea 01/04/2019 documented as of this encounter (statuses as of 03/16/2024) Resolved Problems Problem Noted Date Diagnosed Date Resolved Date Gastroesophageal reflux dise ase with esophagitis and hemorrhage 12/18/2023 02/29/2024 Anemia during in third trimester 12/10/2023 02/29/2024 32 weeks gestation of 12/08/2023 02/29/2024 with nephrolithias is in third trimester 12/08/2023 02/29/2024 Dysuria 11/28/2023 02/29/2024 with 32 completed weeks gestation 11/28/2023 02/29/2024 Irregular uterine contractions 11/03/2023 02/29/2024 Hyperemesis affecting , antepartum 08/26/2023 02/29/2024 Calculus of kidney affecting in third trimester 08/20/2023 02/29/2024 16 weeks gestation of 08/13/2023 02/29/2024 History of gestational hypertension 08/13/2023 02/29/2024 H/O gastric bypass 08/13/2023 Acute pyelonephritis 08/01/2023 024 Renal colic 08/01/2023 02/29/2024 Retention of urine 08/01/2023 Right flank pain 08/01/2023 02/29/2024 Right flank pain 08/01/2023 02/29/2024 UTI (urinary tract infection) 08/01/2023 02/29/2024 Hematuria 08/01/2023 08/01/2023 Finding of above normal blood pressure 08/01/2023 08/01/2023 Depression 08/01/2023 02/29/2024 Cyst of ovary 08/01/2023 02/29/2024 Crampy pain associated with menses 08/01/2023 08/01/2023 [...] period. 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 07/18/16 Renal stones 07/07/2016 02/29/2024 Family history of malignant neoplasm of breast 04/08/2016 01/04/2019 Diverticulitis of colon with perforation 02/11/2015 01/04/2019 Dysmenorrhea 01/13/2014 08/31/2017 Obesity, pediatric, BMI 95th to 98th percentile for age 0801/08/2011 04/14/2012 Overweight, pediatric, BMI 8 5.0-94.9 percentile for age 1205/22/2010 01/08/2011 Family history of cardiovascular disease 12/27/2008 01/04/2019 Routine child health exam 09/01/2005 documented as of this encounter (statuses as of 03/16/2024) Immunizations Name Administration Dates Next Due COVID-19 mRNA, LNP-s, No Pre serve, 2-Dose Series (Flyfit) 04/03/2021,06/26/2020,06/05/2020 DTaP Dipth/Tet/Acell Pertussis (Infanrix), Peds 01/06/2017,09/28/1997,09/18/1994,08/15,1993,1993 HIB PRP-T, 4 Dose, PF, IM (H iberix, ActHib) 05/15/1994,1993,1993,04/26 Haemophilius B (HIB), unspecified 1993,1993,1993,04/26 Hepatitis B, 0-19 yrs 1993,1993,02/07 Hepatitis B, 20+ yrs 02/08/2014 MMR - Measles/Mumps/Rubella Vaccine 09/28/1997,1 1993 Meningococcal Conjugate Vacc ine (Menactra/Menveo) 01/08/2011,12/15/2007 Meningococcal MCV4P Conjugat e Vaccine (Menactra) 01/08/2011,12/15/2007 OPV - Polio Virus Vaccine (Oral) 998,05/15/1994,1993,04/26 PPD 02/08/2014,01/14/2014 Seasonal Influenza Vac., MDV , IM, 0.5 mL (Fluzone) 02/08/2014 Seasonal Influenza Virus Vac cine, Unspecified Formulation 04/06/2023,03/20/2023,03/20/2023,03/26,03/14/2021,03/14/2021,03/08/2020 ,03/08/2019,06/09/2018,02/20/2018,04/09,03/22/2016,02/08/2014, 9,03/26/1996 Seasonal Influenza, PF, 6 M & above, IM , (FluLaval or Fluzone) 03/26/2022,03/08/2020,03/09/2019(Defer red: Patient Refused - pt stated will receive at work) Seasonal Influenza, Quad, Na curtis (Flumist) 03/14/2021 Seasonal Influenza, Quadriva lent, No Preserve, IM 03/13/2021,03/19/2020,03/08/2019,02/20,03/22/2016 Seasonal Influenza, Trivalen t, (IIV3), PF, (Fluzone) 04/28/2017,04/30/1999,03/26/1996 TDAP (age 10 and older)(Boostrix) 01/06/2017,06/2016,03/30/2015 Varicella [...] ages 0-17 years) Not on file 12/07/2023 Sex and Gender Information Value Date Recorded [...] Telephone Encounter - Levar Ordonez DO - 03/16/2024 4:41 PM EDTSigned Prescriptions: Disp Refills Ondansetron HCl 4 MG Oral Tablet 20 Tab*0 Sig: Take 1 Tablet by mouth every 8 hours as needed for Nausea. Authorizing Provider: LEVAR ORDONEZ Ordering User: WAQAS MENG oxyCODONE-Acetaminophen 5-325 MG Oral Tabl*40 Tab*0 Sig: Take 1 Tablet by mouth every 6 hours as needed for Pain, Severe. Taryn cruz Provider: LEVAR ORDONEZ * Telephone Encounter - Waqas Escamilla, [facility] - 03/16/2024 3:27 PM EDTPending Prescriptions: Disp Refills oxyCODONE-Acetaminophen 5-325 MG Oral Tabl*40 Tab*0 Sig: Take 1 Tablet by mouth every 6 hours as needed for Pain, Severe. Signed Prescriptions: Disp Refills Ondansetron HCl 4 MG Oral Tablet 20 Tab*0 Sig: Take 1 Tablet by mouth every 8 hours as needed for Nausea. Authorizing Provider : LEVAR ORDONEZ Ordering User: WAQAS MENG * Telephone Encounter - Waqas Escamilla, [facility] - 03/16/2024 3:26 PM EDT I have reviewed the patients controlled substance dispensing history in the Prescription Drug Monitoring Program in compliance with the [facility] regulations before prescribing a controlled substance. PDMP checked on 03/16/2024. Pending Prescriptions: Disp Refills oxyCODONE-Acetaminophen 5-325 MG Oral Tab*40 Tab*0 Sig: Take 1 Tablet by mouth every 6 hours as needed for Pain, Severe. Signed Prescriptions: Disp Refills Ondansetron HCl 4 MG Oral Tablet 20 Tab*0 Sig: Take 1 Tablet by mouth every 8 hours as needed for Nausea. Authorizing Provider: LEVAR ORDONEZ Ordering User: WAQAS MENG Last Visit: 02/29/2024 (in office), 08/07/2023 (telemedicine) Next Visit: Visit date not found Date medication was last filled: 03/12/24 Date medication is due for refill: 03/21/24 Pharmacy: [facility] [id number] [place] [address] [address] Is this request for a controlled substance? Yes and Urine Drug Screen Not completed Toxicology results: No results found. However, due to the size of the patient record, not all encounters were searched.Please check Results Review for a complete set of results. Please approve if appropriate. Thank You, Waqas Meng [facility] Clinical Pharmacist Centralized Clinical Pharmacy Services (CCPS) 03/16/2024, 3:26 PM * Telephone Encounter - Caleb Wen, criminalist technician - 03/16/2024 2:20 PM EDT Pt requesting HIGH PRIORITY due to being out of medication this weekend. Did you pend patient's preferred pharmacy and medication before forwarding?yes Pharmacy: [id number] [address] Pending Prescriptions: Disp Refills Ondansetron HCl 4 MG Oral Tablet 20 Tab*0 Sig: Take 1 Tablet by mouth every 8 hours as needed for Nausea. oxyCODONE-Acetaminophen 5-325 MG Oral Tab*40 Tab*0 Sig: Take 1 Tablet by mouth every 6 hours as needed for Pain, Severe. Last Visit: 02/29/2024 (in office), 08/07/2023 (telemedicine) Next Visit: Visit date not found If no future appointments scheduled, and last appointment is greater than a year ago, please schedule patient for a follow-up appointment Last date the medication was ordered: 02/15/24-03/09/24 Is this request for a controlled substance?Yes, What was the last refill date 03/09/2024 w/ and dosage 5-325mg and Urine Drug Screen Not completed Urine Drug Screen:No results found. However, due to the size of the patient record, not all encounters were searched. Please check Results Review for a complete set of results. Patient Phone Numbers Labs: Lab Results Component Value Date/Time CREAT 0.7 02/13/2024 10:02 AM CREAT 0.9 06/22/2020 03:57 PM POTASSIUM 4.2 02/13/2024 10:02 AM POTASSIUM 4.9 06/22/2020 03:57 PM TSH 2.42 02/13/2021 07:39 AM TSH 1.20 02/22/2020 02:35 PM LDL 89 10/15/2022 05:20 PM LDL 93 09/11/2010 08:05 AM ALT 6 (L) 02/13/2024 10:02 AM ALT 13 06/12/2020 03:25 AM HGBA1C 5.4 10/15/2022 05:20 PM HGBA1C 5.4% 05/25/2019 12:00 AM HGBA1C 5.3 01/11/2015 04:24 PM documented in this encounter Plan of Treatment Upcoming Encounters Date Type Department Care Team (Latest Contact Info) Description 04/04/2024 9:30 AM EDT Hospital Encounter [facility]O [facility], Endoscopy Suite, [facility], [address] [place] [address] Otis Syed MD [address] [place] [address] 04/04/2024 9:30 AM EDT - 04/04/2024 10:15 AM EDT Surgery ENDO [facility], Endoscopy [address], [facility], [address] [place] [address] Otis Syed MD [address] [place] [address] ESOPHAGOGASTRODUODENOSCOPY (EGD), FLEXIBLE, TRANSORAL, DIAGNOSTIC 07/21/2024 1:15 PM EST Hospital Encounter ENDO [facility], Endoscopy [address] [phone] Ronna Luna MD [address] [place] [address] 07/21/2024 1:15 PM EST - 07/21/2024 1:45 PM EST Surgery ENDO [facility], Endoscopy [address] [phone] Ronna Luna MD [address] [place] [address] ESOPHAGOGASTRODUODENOSCOPY (EGD), FLEXIBLE, TRANSORAL, DIAGNOSTIC Scheduled Procedures Name Priority Associated Diagnoses Date/Ti me ESOPHAGOGASTRODUODENOSCOPY ( EGD), FLEXIBLE, TRANSORAL, DIAGNOSTIC Acute marginal ulcer 04/04/2024 9:30 AM EDT ESOPHAGOGASTRODUODENOSCOPY ( EGD), FLEXIBLE, TRANSORAL, DIAGNOSTIC Gastroesophageal reflux 07/21/2024 1:15 PM EST COLONOSCOPY FLEXIBLE PROXIMA L DIAGNOSTIC Recall History of colonic polyps Health Maintenance Due Date Last Done Comments Pap Smear 04/09/2020 04/09/2017, 09/21/2014 Depression Monitoring 05/30/2020 05/30/2019 Cervical Cancer Screening 2023 HPV/Co-Test 2023 COVID-19 Vaccine ( season) 2024 04/03/2021, 06/26/2020, 06/05/2020 Influenza Vaccine (FLU shot) (#1) 2024 04/06/2023, 03/20/2023, 03/20/2023, Additional history exists DTap/Tdap Vaccines (11 - Td or Tdap) 01/06/2027 [...] Diagnoses Diagnosis Kidney stone Calculus of kidney Acute marginal ulcer Acute gastrojejunal ulcer without mention of hemorrhage, perforation, or obstruction Gastroesophageal reflux Esophageal reflux documented in this encounter Advance Directives * [...] Power of Attor gab? No Care Teams Installations Inspector Relationship Specialty Start Date End Date Levar Ordonez DO [address] [place] [address] PCP - General Family Medicine 06/09/19 documented as of this encounter
--- OUTSIDE RECORDS SUMMARY | 2024-03-17 18:39 | External Medical Summary | Summary of Care ---
Author Name Unknown Organization [facility] Address [address] [place] [address] Phone [phone] Care Team Providers Care Necktie Stitcher Name Role Phone Levar Ordonez DO Primary Care Provider [phone] Reason for Referral * Medication Prior Authorization - Closed Specialty Diagnoses / Procedures Referred By Rosendo trujillo Referred To Contact Diagnoses Kidney stone Levar Ordonez DO [address] [place] [address] Referral ID Status Reason Start Date Expiration Date Visits Re quested Visits Authorized [id number] Closed [phone] Reason for Visit * Reason Onset Date Comments Medication Refill 03/09/2024 Encounter Details Date Type Department Care Team (Late st Contact Info) Description 03/09/2024 Refill Family Practice [facility] [address] [place] [address] Levar Ordonez DO [address] [place] [address] Kidney stone Allergies Active Allergy Reactions Criticality Noted Date Comments Prochlorperazine Psych complications 06/12/2020 Probably dystonic reaction. The patient does tolerate Phenergan Morphine Hives Low 03/20/2019 Pt feels the rash may have been from tape at the IV site. Sulfamethoxazole Hives High 03/03/2021 Trimethoprim Hives High 05/02/2018 documented as of this encounter (statuses as of 03/09/2024) Medications Medication Sig Dispensed Refills Start Date End Date Status Acetaminophen 325 MG Oral Capsule Take 325 mg by mouth every 6 hours as needed for Pain, Mild. 07/15/2023 Active [facility] Gummy 0.4-113.5 MG Oral Tablet Chewable Take 1 Tablet by mouth in the morning. Active Ferrous Sulfate 325 (65 Fe) MG Oral Tablet (Feosol)Indicatio ns:History of gastric bypass,Other iron deficiency anemia 1 daily 09/02/2023 Active Sertraline HCl 100 MG Oral Tablet (Zoloft)Indicatio ns:Recurrent major depressive disorder, in full remission (HCC) TAKE 1 & 1/2 TABLETS BY MOUTH IN THE MORNING. 30 Tablet 11/26/2023 Active busPIRone HCl 10 MG Oral Tablet (Buspar) Take 1 Tablet by mouth in the morning. 30 Tablet 12/18/2023 Active Omeprazole 20 MG Oral Capsule Delayed Release (PriLOSEC)Indicat ions:Gastroesopha geal reflux disease with esophagitis and hemorrhage Take 1 Capsule by mouth in the morning. 30 Capsule 12/18/2023 Active Tamsulosin HCl 0.4 MG Oral Capsule (Flomax) Take 1 Capsule by mouth in the morning. 28 Capsule 12/18/2023 Active Cyclobenzaprine HCl 10 MG Oral Tablet (Flexeril) Take 1 Tablet by mouth every 6 hours as needed for Pain, Moderate. 30 Tablet 01/26/2024 Active Ondansetron HCl 4 MG Oral Tablet Take 1 Tablet by mouth every 8 hours as needed for Nausea. 20 Tablet 02/15/2024 Active Rizatriptan Benzoate 5 MG Oral Tablet Take 1 Tablet by mouth as needed for Migraine. May repeat in 2 hours if needed 10 Tablet 02/29/2024 Active Gabapentin 300 MG Oral Capsule (Neurontin) Take 1 Capsule by mouth in the morning and 1 Capsule at noon and 1 Capsule before bedtime. 90 Capsule 03/01/2024 Active oxyCODONE-Acetami nophen 5-325 MG Oral Tablet (Percocet)Indicat ions:Kidney stone Take 1 Tablet by mouth every 6 hours as needed for Pain, Severe. 40 Tablet 03/09/2024 Active oxyCODONE-Acetami nophen 5-325 MG Oral Tablet (Percocet)Indicat ions:Kidney stone Take 1 Tablet by mouth every 6 hours as needed for Pain, Severe. Earliest refill 01/09/24 40 Tablet 03/02/2024 03/09/2024 Discontinued (Refill) documented as of this encounter (statuses as of 03/09/2024) Active Problems Problem Noted Date Diagnosed Date [...] Menorrhagia with regular cycle 04/16/2021 [employer] OTHER*[id number] 01/24/2021 Gastroesophageal reflux disease with esophagitis 01/04/2019 Recurrent major depressive disorder, in full rem ission 01/04/2019 Irritable bowel syndrome wit h both constipation and diarrhea 01/04/2019 documented as of this encounter (statuses as of 03/09/2024) Resolved Problems Problem Noted Date Diagnosed Date [...] as of this encounter (statuses as of 03/09/2024) Immunizations Name Administration Dates Next Due COVID-19 mRNA, LNP-s, No Pre serve, 2-Dose Series ([employer]) 04/03/2021,06/26/2020,06/05/2020 DTaP Dipth/Tet/Acell Pertussis (Infanrix), Peds 01/06/2017,09/28/1997,09/18/1994,08/15,1993,1993 [...] Telephone Encounter - Levar Ordonez DO - 03/09/2024 10:16 AM EDTSigned Prescriptions: Disp Refills oxyCODONE-Acetaminophen 5-325 MG Oral Tabl*40 Tab*0 Sig: Take 1 Tablet by mouth every 6 hours as needed for Pain, Severe. Authorizing Provider: LEVAR ORDONEZ * Telephone Encounter - Rain Corcoran [facility] - 03/09/2024 8:39 AM EDT Pending Prescriptions: Disp Refills oxyCODONE-Acetaminophen 5-325 MG Oral Tabl*40 Tab*0 Sig: Take 1 Tablet by mouth every 6 hours as needed for Pain, Severe. * Telephone Encounter - Rain Corcoran [facility] - 03/09/2024 8:39 AM EDT I have reviewed the patients controlled substance dispensing history in the Prescription Drug Monitoring Program in compliance with the [facility] regulations before prescribing a controlled substance. PDMP checked on 03/09/2024. Pending Prescriptions: Disp Refills oxyCODONE-Acetaminophen 5-325 MG Oral Tab*40 Tab*0 Sig: Take 1 Tablet by mouth every 6 hours as needed for Pain, Severe. Last Visit: 02/29/2024 (in office), 08/07/2023 (telemedicine) Next Visit: Visit date not found Date medication was last filled: 03/03 Date medication is due for refill: 03/12 Pharmacy: [id number] [address] Is this request for a controlled substance? Yes and Urine Drug Screen Not completed Toxicology results: No results found. However, due to the size of the patient record, not all encounters were searched.Please check Results Review for a complete set of results. Please approve if appropriate. Thank you, Rain Corcoran, PharmD. Clinical Pharmacist Centralized Clinical Pharmacy Services (CCPS) 03/09/2024, 8:39 AM * Telephone Encounter - Vickie De Guzman CPhT - 03/09/2024 8:33 AM EDT Pt on last two days of med. Asking high priority. Did you pend patient's preferred pharmacy and medication before forwarding?yes Pharmacy: [id number] [address] Pending Prescriptions: Disp Refills oxyCODONE-Acetaminophen 5-325 MG Oral Tab*40 Tab*0 Sig: Take 1 Tablet by mouth every 6 hours as needed for Pain, Severe. Earliest refill 01/09/24 Last Visit: 02/29/2024 (in office), 08/07/2023 (telemedicine) Next Visit: Visit date not found If no future appointments scheduled, and last appointment is greater than a year ago, please schedule patient for a follow-up appointment Last date the medication was ordered: 03/02/2024 Is this request for a controlled substance?Yes, What was the last refill date 03/02/2024 w/ quantity 40 and dosage 5-325 and Urine Drug Screen Not [...] [facility], Endoscopy Suite, [facility], [address] [place] [address] Otis Syed MD [address] [place] [address] 04/04/2024 9:30 AM EDT - 04/04/2024 10:15 AM EDT Surgery ENDO [facility], Endoscopy Suite, [facility] [address], [address] [place] [address] Otis Syed MD [address] [place] [address] ESOPHAGOGASTRODUODENOSCOPY (EGD), FLEXIBLE, TRANSORAL, DIAGNOSTIC 07/21/2024 1:15 PM EST Hospital Encounter [facility], Endoscopy [address] [phone] Ronna Luna MD [address] [place] [address] 07/21/2024 1:15 PM EST - 07/21/2024 1:45 PM EST Surgery [facility], Endoscopy [address] [phone] Ronna Luna MD [address] [place] [address] ESOPHAGOGASTRODUODENOSCOPY (EGD), FLEXIBLE, TRANSORAL, DIAGNOSTIC Scheduled Procedures [...] Power of Attor gab? No Care Teams Necktie Stitcher Relationship Specialty Start Date End Date Levar Ordonez DO [address] [place] [address] PCP - General Family Medicine 06/09/19 documented as of this encounter
--- OUTSIDE RECORDS SUMMARY | 2024-03-17 18:39 | External Medical Summary | Summary of Care ---
Author Name Unknown Organization [facility] Address [address] [place] [address] Phone [phone] Care Team Providers Care Sped Teacher Name Role Phone Joanel Dimas Lorenza BELTRÁN Primary Care Provider [phone] Reason for Visit * Reason Onset Date Comments Hospital Follow-Up 12/14/2023 Encounter Details Date Type Department Care Team (Late st Contact Info) Description 12/14/2023 Telephone Urology, [place] [address], [place] [id number] Services, Formerly [facility], [facility] [address] [place] [address] Hospital Follow-Up Allergies Active Allergy Reactions Criticality Noted Date Comments Prochlorperazine Psych complications 06/12/2020 Probably dystonic reaction. The patient does tolerate Phenergan Morphine Hives Low 03/20/2019 Pt feels the rash may have been from tape at the IV site. Sulfamethoxazole Hives High 03/03/2021 Trimethoprim Hives High 05/02/2018 documented as of this encounter (statuses as of 03/08/2024) Medications Medication Sig Dispensed Refills Start Date [...] as of this encounter (statuses as of 03/08/2024) Active Problems Problem Noted Date Diagnosed Date [...] of right kidney 08/01/2023 Intestinal postoperative nonabsorption Other dietary vitamin B12 deficiency anemia 10/06 History of gastric bypass 02/11/2022 Obesity, Class III, BMI 40-49.9 (morbid obesity) 10/05/2021 NAFLD (nonalcoholic fatty liver disease) 022 Menorrhagia with regular cycle 04/16/2021 BROWN RESEARCH OTHER*[id number] 01/24/2021 Gastroesophageal reflux disease with esophagitis 01/04/2019 Recurrent major depressive disorder, in full rem ission 01/04/2019 Irritable bowel syndrome wit h both constipation and diarrhea 01/04/2019 Comments Yes documented as of this encounter (statuses as of 03/08/2024) Resolved Problems Problem Noted Date Diagnosed Date [...] as of this encounter (statuses as of 03/08/2024) Immunizations Name Administration Dates Next Due COVID-19 [...] Influenza, Trivalen t, (IIV3), PF, (Fluzone) 04/28/2017,04/30/1999,03/26/1996 Seasonal Influenza, Trivalen t, (IIV3), with Preserv, (Fluzone) 02/08/2014 TDAP (age 10 and older)(Boostrix) 01/06/2017,06/2016,03/30/2015 [...] ages 0-17 years) Not on file 12/07/2023 Comments Yes Sex and Gender Information Value Date Recorded [...] encounter Miscellaneous Notes * Telephone Encounter - Moni Burrell OSA - 12/14/2023 12:23 PM EDT PT calling for hosp D/C appt. Pt saw Dr. Staples in the hospital and was D/C 12/08. Pt states she is [address] Staples coordinated with outcomes analyst for her to have the baby at 37 weeks and she can operate on the kidney stone at the same time. Pt asking for D/C appt to discuss this. Pt also states that she experienced Thick white pus in her urine yesterday, today her urine is verythick. Declined fever, but has continued pain. documented in this encounter Plan of Treatment Upcoming Encounters Date Type Department Care Team (Latest Contact Info) Description 03/08/2024 9:30 AM EDT [facility] [address] [place] [address] Lobito Carolina MD [address] [place] [address] 07/21/2024 1:15 PM EST Hospital Encounter ENDO [facility], Endoscopy [address] [place] [phone] Ronna Luna MD [address] [place] [address] 07/21/2024 1:15 PM EST - 07/21/2024 1:45 PM EST Surgery ENDO [facility], Endoscopy [address], [place] [address] Ronna Luna MD [address] [place] [address] ESOPHAGOGASTRODUODENOSCOPY (EGD), FLEXIBLE, TRANSORAL, DIAGNOSTIC Scheduled Procedures Name Priority Associated Diagnoses Date/Ti co ESOPHAGOGASTRODUODENOSCOPY ( EGD), FLEXIBLE, TRANSORAL, DIAGNOSTIC Gastroesophageal [...] Power of Attor gab? No Care Teams Sped Teacher Relationship Specialty Start Date End Date Dimas Doty DO [address] [place] [address] PCP - General Family Medicine 06/09/19 documented as of this encounter
--- OUTSIDE RECORDS SUMMARY | 2024-03-17 18:39 | External Medical Summary | Summary of Care ---
Author Name Unknown Organization [facility] Address [address] [place] [address] Phone [phone] Care Team Providers Care Payment Manager Name Role Phone OctavioDimas umana Lorenza BELTRÁN Primary Care Provider [phone] Reason for Referral * Ancillary Services (Within 30 days (routine)) - Authorized Specialty Diagnoses / Procedures Referred By Rosendo t Referred To Contact General Surgery Diagnoses Acute marginal ulcer Lobito Carolina MD [address] [place] [address] Referral ID Status Reason Start Date Expiration Date Visits Requested Visits Authorized [id number] Authorized Ancillary Services Required 03/08/[phone] Question Answer Referral Priority Within 30 days (routine) Where should this appointment be scheduled? [facility] What is the reason for the patient to be seen? Comments [facility] endo with Dr. Syed on 04/04/24 Reason for Visit * Reason Comments Abdominal Pain Encounter Details Date Type Department Care Team (Late st Contact Info) Description 03/08/2024 9:30 AM EDT Telemedicine General Surgery, [place] [address] [place], [place] [id number] Lobito Carolina MD [address] [place] [address] Acute marginal ulcer* Allergies Active Allergy Reactions Criticality Noted Date [...] Capsule before bedtime. 90 Capsule 03/01/2024 Active oxyCODONE-Acetamin ophen 5-325 MG Oral Tablet (Percocet)Indicati ons:Kidney stone Take 1 Tablet by mouth every 6 hours as needed for Pain, Severe. Earliest refill 01/09/24 40 Tablet 03/02/2024 Active Ketorolac Tromethamine 10 MG Oral Tablet (Toradol) Take 1 Tablet by mouth 4 times a day as needed for Pain, Severe. Do not take for longer than 5 days 20 Tablet 02/16/2024 03/08/2024 Discontinue d(Adverse reaction) documented as of this encounter (statuses as [...] Menorrhagia with regular cycle 04/16/2021 [facility] RESEARCH OTHER*[id number] 01/24/2021 Gastroesophageal reflux disease with esophagitis 01/04/2019 [...] mRNA, LNP-s, No Pre serve, 2-Dose Series (Qnovo) 04/03/2021,06/26/2020,06/05/2020 DTaP Dipth/Tet/Acell Pertussis (Infanrix), Peds 01/06/2017,09/28/1997,09/18/1994,08/15,1993,1993 [...] as of this encounter Progress Notes * Jack Martinez MD - 03/08/2024 9:30 AM EDT [facility] Follow up Visit DATE: 03/08/2024 Zan Snell [id number] Age: [age] year old PCP: Dimas Doty DO Referral: Franca GOMEZ MIS Surgical History Laparoscopic Gastric restrictive procedure with gastric bypass and Otilia en Y gastroenterosotomy 10/04/[address] Carolina Upper GI endoscopy Biopsy of liver, wedge Final Path: A. Liver, wedge biopsies: Mild steatosis involving 10% of hepatocytes with glycogenated nuclei and no lobular inflammation orhepatocyte ballooning seen (ANN MARIE 1/8) No significant fibrosis seen (0/4) Synoptic Data Steatosis (0-3): 1 Mild 5-33% Lobular Inflammation (0-3): 0 No foci Hepatocyte Ballooning (0-2): 0 None NAFLD Activity Score (ANN MARIE): 1 out of 8 NAFLD Fibrosis Stage (0-4): 0 No fibrosis HPI 03/08/2024: Patient presents for follow up for abdominal pain. Patient reports epigastric abdominal pain started about 6 months ago. Patient had recent on December 25, 2023. Patient was given Toradol around surgery date and had development of pain soon after. Patient is a non-smoker. Patient taking Omeprazole 20 mg BID. Abdominal pain? YES Has YES nausea- increased recently, NO vomiting. Complains of NO fever and NO chills. Bowel movements are slowly moving. Patient completed post-discharge Lovenox (enoxaparin)? Yes, 10 days per protocol completed. Any heartburn or regurgitation: NO: Preop NO Are you smoking or using tobacco? NO Are you exercising? Yes [place] 7 days a week. Walking approximately 1 hour DIET is presently a Stage 4 Do you have satiety with small meals. YES ADVERSE EVENTS Was there a postoperative Adverse Event? Yes. Other other (list ICD9 or ICD10 code), PONV requiringIVF and antiemetics Amount of blood transfused within 72 hours of surgery start? 0 units INTRAOP: No PREDISCHARGE: No POST DISCHARGE : Yes Was there a METABOLIC post-operative adverse event? No Amount of blood transfused within 72 hours of surgery start? 0 units READMISSION: Within 30 days? No. Readmission in 90 days? No Total number of readmissions within 90 days = 0 Unplanned ICU Admission within 30 days postop; NO Transfer to acute care hospital within 30 days postop; NO REOPERATION: Abdominal: 0-NONE Other: 0-NONE STUDIES: Was a swallow study performed the day of or the day after the procedure? No Was the anastomosis checked with a provocative test to assess for leak? Yes 03/05/2022 EGD - Dr. Carolina Findings & Specimens: The Z-line was regular and was found 42 cm from the incisors. No gross lesions were noted in the esophagus. Evidence of a gastric bypass was found. A gastric pouch with a normal size was found. The staple line appeared intact. The gastrojejunal anastomosis was characterized by healthy appearing mucosa. This was traversed. The ngjxk-st-qemearc limb measured 2 cm from the anastomosis and was characterized b y healthy appearing mucosa. The examined jejunum was normal. Impression: - Z-line regular, 42 cm from the incisors. - No gross lesions in esophagus. - Gastric bypass with a normal-sized pouch and intact staple line. Gastrojejunal anastomosis characterized by healthy appearing mucosa. - Normal examined jejunum. - No specimens collected. Recommendation: - Discharge patient to home (ambulatory). - Return to Bariatric clinic in 3 months. 10/11/2021 CT FINDINGS: Lungs: The visualized portions of the lung bases are clear. Liver: The liver appears normal. There is an area of decreased density in the medial segment of theleft lobe of the liver consistent with an area of focal fat. Gallbladder and bile ducts: There has been a cholecystectomy. Pancreas: The pancreas is normal. Spleen: The spleen is normal. Adrenal glands: The adrenal glands are normal. Kidneys and ureters: Nonobstructive right sided kidney stone measures 7 mm. Nonobstructive right sided kidney stone measures 2 mm. Benign right renal cyst. No follow-up required. Left kidney is unremarkable as visualized. No mass or stone seen. No hydronephrosis. Stomach and bowel: There has been prior gastric bypass surgery. Appendix: The appendix is surgically absent. Intraperitoneal space: Unremarkable. No free air. No significant fluid collection. Vasculature: Unremarkable. No abdominal aortic aneurysm. Lymph nodes: Unremarkable. No enlarged lymph nodes. Urinary bladder: The urinary bladder is normal in appearance. Reproductive: The uterus and ovaries are grossly normal. Bones/joints: No lytic or sclerotic bone lesion. No fracture. Soft tissues: There is a small fat-containing umbilical hernia. Edema is present in the soft tissues of the anterior abdominal wall and there is a small amount of subcutaneous emphysema present in the anterior abdominal wall. These findings are presumably related to recent abdominal surgery. IMPRESSION: 1. Operative changes of recent gastric bypass. No evidence of obstruction or leak. 2. Soft tissue changes in the anterior abdominal wall are likely related to recent surgery. 3. Nonobstructing right-sided nephrolithiasis. Current Outpatient Medications Medication Sig Dispense Refill [...] MOUTH IN THE MORNING. 30 Tablet 11 busPIRone HCl 10 MG Oral Tablet (Buspar) [...] every 6 hours as needed forPain, Moderate. 30 Tablet 5 Ondansetron HCl 4 MG Oral Tablet Take 1 Tablet by mouth every 8 hours as needed for Nausea. 20 Tablet 0 Ketorolac Tromethamine 10 MG Oral Tablet (Toradol) Take 1 Tablet by mouth 4 times a day as needed for Pain, Severe. Do not take for longer than 5 days 20 Tablet 0 Rizatriptan Benzoate 5 MG Oral Tablet Take 1 Tablet by mouth as needed for Migraine. May repeat in 2 hours if needed 10 Tablet 5 Gabapentin 300 MG Oral Capsule (Neurontin) Take 1 Capsule by mouth in the morning and 1 Capsule at noon and 1 Capsule before bedtime. 90 Capsule 5 oxyCODONE-Acetaminophen 5-325 MG Oral Tablet (Percocet) Take 1 Tablet by mouth every 6 hours as needed for Pain, Severe. Earliest refill 01/09/24 40 Tablet 0 No current facility-administered medications for this visit. MVI YES Ca++ NO B12 YES Allergies as of 03/08/2024 - Reviewed 03/07/2024 Allergen Reaction Noted Sulfamethoxazole Hives 03/03/2021 Trimethoprim Hives 05/02/2018 Compazine [prochlorperazine] Psych complications 06/12/2020 Morphine Hives 03/20/2019 PHYSICAL EXAM: Highest weight within one year at [facility]: 309 lbs; Date: 10/23/2020 Weight closest to surgery: 289 lbs; Date: 10/04/2021 03/08/2024: No vitals 10/28/2022: self reported wt 217 lbs, ht 66 inches, BMI 35 01/16/2022: BP 149/93 | Pulse 120 | Temp 37.1 C (98.8 F) | Wt 112 kg (247 lb) | BMI 39.87 kg/m | BSA 2.28 m- Rechecked HR was 90 10/15/2021: BP 140/88 | Pulse 102 | Temp 36.7 C (98.1 F) | Ht 1.673 m (5' 5.87") | Wt 124.9 kg (275 lb 6.4 oz) | SpO2 97% | BMI 44.63 kg/m | BSA 2.41 m 06/27/2021: BP 128/80 | Pulse 87 | Temp 36.6 C (97.8 F) | Ht 1.676 m (5' 6") | Wt 136.1 kg (300lb) | BMI 48.42 kg/m | BSA 2.52 m General: Alert and appropriate. Well-appearing and in no distress Impression: 1. Excellent progress after, Laparoscopic Gastric restrictive procedure with gastric bypass and Otilia en Y gastroenterosotomy Upper GI endoscopy Biopsy of liver, wedge Would you have this surgery again? YES 2. Marginal ulcer- Patient with pain consistent with marginal ulcer. Plan: 1) Diet: Stage 4 2) Activity: Unlimited 3) Follow up with [facility] 4) Due for a B12 injection- Can obtain at [facility] 5) Endoscopy in [facility] endo with Dr. Syed on 04/04/24 I spent a total of 40 minuteson the date of service in preparation, delivery, and documentation of the care provided to patient aware and verbalized understanding of message below excluding any time spent in the performance of separately billed services. Lobito Carolina MD, FACS, [facility] Prosthetic Aides Teacher [facility] Minimally Invasive/ Bariatric Surgery Fellowship documented in this encounter Plan of Treatment Upcoming Encounters Date Type Department Care Team (Latest Contact Info) Description 07/21/2024 1:15 PM [facility] Hospital Encounter ENDO [facility], Endoscopy [address] [place] [address] Ronna Luna MD [address] [facility] [place] [address] 07/21/2024 1:15 PM EST - 07/21/2024 1:45 PM EST Surgery ENDO [facility], Endoscopy [address] [place] [phone] Ronna Luna MD [address] [place] [address] ESOPHAGOGASTRODUODENOSCOPY (EGD), FLEXIBLE, TRANSORAL, DIAGNOSTIC Scheduled Procedures Name Priority Associated Diagnoses Date/Ti me ESOPHAGOGASTRODUODENOSCOPY ( EGD), FLEXIBLE, TRANSORAL, DIAGNOSTIC Gastroesophageal reflux 07/21/2024 1:15 PM EST COLONOSCOPY FLEXIBLE PROXIMA L DIAGNOSTIC Recall History of colonic polyps Scheduled Referrals Name Type Priority Associated Diagnoses Orde r Schedule UPPER ENDOSCOPY SURGERY REFERRAL OP Referral Within 30 days (routine) Acute marginal ulcer Ordered: 03/08/2024 Health Maintenance Due Date Last Done Comments [...] as of this encounter Visit Diagnoses Diagnosis Acute marginal ulcer- Primary Acute gastrojejunal ulcer without mention of hemorrhage, [...] Power of Attor gab? No Care Teams Payment Manager Relationship Specialty Start Date End Date Dimas Doty DO [address] [place], [place] [address] PCP - General Family Medicine 06/09/19 documented as of this encounter
--- OUTSIDE RECORDS SUMMARY | 2024-03-17 18:40 | External Medical Summary | Summary of Care ---
Author Name Unknown Organization [facility] Address [address] [place] [address] Phone [phone] Care Team Providers Care Supervisor Frame Assembly Name Role Phone Levar Ordonez DO Primary Care Provider [phone] Reason for Referral * Medication Prior Authorization - Closed Specialty Diagnoses / Procedures Referred By Rosendo trujillo Referred To Contact Diagnoses Kidney stone Levar Ordonez DO [address] [place] [address] Referral ID Status Reason Start Date Expiration Date Visits Re quested Visits Authorized [id number] Closed [phone] Reason for Visit * Reason Onset Date Comments Med Request 03/01/2024 Encounter Details Date Type Department Care Team (Late st Contact Info) Description 03/01/2024 Telephone Family Practice [facility] Gonsalez [address] [place] [address] Levar Ordonez DO [address] [place] [address] Med Request Allergies Active Allergy Reactions Criticality Noted Date Comments Prochlorperazine Psych complications 06/12/2020 Probably dystonic reaction. The patient does tolerate Phenergan Morphine Hives Low 03/20/2019 Pt feels the rash may have been from tape at the IV site. Sulfamethoxazole Hives High 03/03/2021 Trimethoprim Hives High 05/02/2018 documented as of this encounter (statuses as of 03/03/2024) Medications Medication Sig Dispensed Refills Start Date [...] needed for Nausea. 20 Tablet 02/15/2024 Active Ketorolac Tromethamine 10 MG Oral Tablet (Toradol) Take 1 Tablet by mouth 4 times a day as needed for Pain, Severe. Do not take for longer than 5 days 20 Tablet 02/16/2024 Active Rizatriptan Benzoate 5 MG Oral Tablet Take 1 Tablet by mouth as needed for Migraine. May repeat in 2 hours if needed 10 Tablet 5 02/29/2024 Active valACYclovir HCl 1 GM Oral Tablet (Valtrex)Indicatio ns:Herpes zoster without complication Take 1 Tablet by mouth in the morning and 1 Tablet at noon and 1 Tablet before bedtime. Do all this for 7 days. For 7 days for shingles. 21 Tablet 02/29/2024 03/07/2024 Active Gabapentin 300 MG Oral Capsule (Neurontin) Take 1 Capsule by mouth in the morning and 1 Capsule at noon and 1 Capsule before bedtime. 90 Capsule 5 03/01/2024 Active oxyCODONE-Acetamin ophen 5-325 MG Oral Tablet (Percocet)Indicati ons:Kidney stone Take 1 Tablet by mouth every 6 hours as needed for Pain, Severe. Earliest refill 01/09/24 40 Tablet 03/02/2024 Active oxyCODONE-Acetamin ophen 5-325 MG Oral Tablet (Percocet)Indicati ons:Kidney stone Take 1 Tablet by mouth every 8 hours as needed for Pain, Severe. Earliest refill 01/09/24 30 Tablet 02/26/2024 03/02/2024 Discontinue d(Refill) documented as of this encounter (statuses as of 03/03/2024) Active Problems Problem Noted Date Diagnosed Date [...] Menorrhagia with regular cycle 04/16/2021 [facility] RESEARCH OTHER*[id number] 01/24/2021 Gastroesophageal reflux disease with esophagitis 01/04/2019 Recurrent major depressive disorder, in full rem ission 01/04/2019 Irritable bowel syndrome wit h both constipation and diarrhea 01/04/2019 documented as of this encounter (statuses as of 03/03/2024) Resolved Problems Problem Noted Date Diagnosed Date [...] as of this encounter (statuses as of 03/03/2024) Immunizations Name Administration Dates Next Due COVID-19 mRNA, LNP-s, No Pre serve, 2-Dose Series (Hello! Messenger) 04/03/2021,06/26/2020,06/05/2020 DTaP Dipth/Tet/Acell Pertussis (Infanrix), Peds 01/06/2017,09/28/1997,09/18/1994,08/15,1993,1993 [...] (Fluzone) 02/08/2014 TDAP (age 10 and older)(Boostrix) 2016,01/06/2017,03/30/2015,04/25 [...] as of this encounter Miscellaneous Notes * Addendum Note - Levar Ordonez DO - 03/02/2024 3:11 PM EDTAddended by: LEVAR ORDONEZ on: 03/02/2024 03:11 PM Modules accepted: Orders * Telephone Encounter - Levar Ordonez DO - 03/02/2024 3:11 PM EDT I sent for a one time change to every 6 hours for her * Telephone Encounter - Maryuri Biswas CPhT - 03/02/2024 3:02 PM EDT pt calling to check on status of oxycodone. Caller can be reached at [phone]. Thank you, Maryuri Biswas [facility] 03/02/24 * Telephone Encounter - Keshia Dunn [facility] - 03/02/2024 10:54 AM EDT Patient calling in regarding Gabapentin Took it last night before bed and felt drunk and like a zombie. Afraid to take today because she has a baby to take care of. Pt has oxycodone/apap at home and said this is working better for the pain. Directions are to take every 8 hours but she is wondering if she can take it every 4 or 6 hours. She would need a new prescription before the weekend if frequency is increased because she will runout of it. Please advise Thanks, Keshia Dnun, PharmD Clinical Pharmacist [facility]) [phone] 03/02/2024 10:57 AM * Telephone Encounter - Vickie De Guzman CPhT - 03/02/2024 10:51 AM EDT Patient called in with side effects from Gabapentin, stating she feels like a zombie. Warm transferred to [facility] for consultation. Pt stating her Oxy/apap works better for the shingles Thank you, Vickie De Guzman CPhT Nurse Coordinator Senior Agricultural Assistant [facility] 03/02/2024,10:51 AM * Telephone Encounter - Malini France RN - 03/01/2024 4:34 PM EDT Pt aware of below. * Telephone Encounter - Levar Ordonez DO - 03/01/2024 3:42 PM EDT Please call: I put in for gabapentin for her to take up to three times daily. She just needs to be aware that it can be sedating. * Telephone Encounter - Mercedes García CPhT - 03/01/2024 12:53 PM EDT Patient is calling because she has shingles and the pain is excruciating. She has a fever and throwing up. Patient has blister rash on right upper back. Patient did start valtrex yesterday but the pain is bad. Please call [phone] Thank you, Mercedes García CPhT [facility] [address] [place] [address], [address] [phone] documented in this encounter Plan of Treatment Upcoming Encounters Date Type Department Care Team (Latest Contact Info) Description 03/08/2024 9:30 AM EDT Telemedicine General Surgery, [place] [address] [place] [address] Lobito Carolina MD [address] [place] [address] 07/21/2024 1:15 PM [facility] Hospital Encounter ENDO [facility], Endoscopy [address] [phone] Ronna Luna MD [address] [place] [address] 07/21/2024 1:15 PM EST - 07/21/2024 1:45 PM EST Surgery ENDO [facility], Endoscopy [address] [place] [phone] Ronna Luna MD [address] [place] [address] ESOPHAGOGASTRODUODENOSCOPY (EGD), FLEXIBLE, TRANSORAL, DIAGNOSTIC Scheduled Procedures [...] Diagnoses Diagnosis Kidney stone Calculus of kidney Gastroesophageal reflux Esophageal reflux documented in this [...] Power of Attor gab? No Care Teams Supervisor Frame Assembly Relationship Specialty Start Date End Date Levar Ordonez DO [address] [place] [address] PCP - General Family Medicine 06/09/19 documented as of this encounter
--- OUTSIDE RECORDS SUMMARY | 2024-03-17 18:40 | External Medical Summary | Summary of Care ---
Author Name Unknown Organization [facility] Address [address] [place] [address] Phone [phone] Care Team Providers Care Online Marketing Analyst Name Role Phone Dimas Doty DO Primary Care Provider [phone] Reason for Referral * Evaluate & Treat - Unlimited Visits (Within 10 days (routine)) - Authorized Specialty Diagnoses / Procedures Referred By Rosendo trujillo Referred To Contact Pharmacist / Pharmacy Diagnoses Bilateral nephrolithiasis Dimas Doty DO [address] [place] [address] Referral ID Status Reason Start Date Expiration Date Visits Requested Visits Authorized [id number] Authorized Specialty Services Required 02/29/2024 08/27/2024 99 [phone] Question Answer Referral Priority Within 10 days (routine) Where should this appointment be scheduled? [facility] Referring Provider Role: Primary Care Reason for Referral: Pain Pain Diagnosis: Other Further Details of Diagnosis: Nephrolithiasis Pain Treatment Options: Opioids and/or Non-opioids Does patient have a signed KIMBERLY? This is required for patients on opioids Yes Has patient completed a Urine Drug Screen in the past 3 months? This is required for patients on opioids No Pain Treatment Goal: Med Optimization Comments Pharmacist Medication Therapy Management: Minimum frequency patient should be seen in person for medication management: as appropriate per clinical condition and patient status By my signature, I understand that my patient Zan Snell will have her medication therapy managed by the [facility] ([facility]) per established policies, procedures, and protocols. I also certify that this referral may serve as an initiation of service for the management of drug therapy in the above noted patient. [facility] providers will be responsible for scheduling patient visits, obtaining appropriate laboratory studies, and adjusting medication management therapy per patient's need, in addition to those roles spelled out in the clinic policy, procedures, and drug management protocols. I understand that the service provided by the [facility] is voluntary and have informed patient that they can refuse the service at their discretion. I am aware that the [facility] will provide me with a copy of the patient encounter via my [employer] InMailsuite. I authorize the [facility] to carry out these activities on my behalf. I consider this program to be a necessary part of the patient's medical care. Dimas Doty DO * Ancillary Services (Within 10 days (routine)) - Authorized Specialty Diagnoses / Procedures Referred By Rosendo t Referred To Contact Gastroenterology Diagnoses Gastroesophageal reflux disease with esophagitis without hemorrhage Dimas Doty DO [address] [place] [address] Referral ID Status Reason Start Date Expiration Date Visits Requested Visits Authorized [id number] Authorized Ancillary Services Required 02/29/[phone] Question Answer Referral Priority Within 10 days (routine) Where should this appointment be scheduled? [facility] Comments Upper Endoscopy ASGE Guidelines Esophageal reflux symptoms that are persistent or recurrent despite appropriate therapy ADDITIONAL INFORMATION 1. Is the patient on Coumadin? No 2. Is the patient on Pradaxa? No * Evaluate & Treat - Unlimited Visits (Within 30 days (routine)) - Authorized Specialty Diagnoses / Procedures Referred By Contcaryn trujillo Referred To Contact Endocrinology/Metabolism / Endocrinology Diagnoses Hyperparathyroidism (HCC) Dimas Doty DO [address] [place], [place] [address] Referral ID Status Reason Start Date Expiration Date Visits Requested Visits Authorized [id number] Authorized Specialty Services Required 02/29/[phone] Question Answer Referral Priority Within 30 days (routine) Where should this appointment be scheduled? [facility] For what condition is the patient being referred? Other Conditions Reason for Visit * Reason Comments Hospital Follow-Up Encounter Details Date Type Department Care Team (Latest Contact Info) Description 02/29/2024 1:40 PM EDT Office Visit Family [facility] [address] [place] [address] Dimas Doty DO [address] [facility] [place] [address] Gastroesophageal reflux disease with esophagitis without hemorrhage*; Hyperparathyroidism (HCC); Herpes zoster without complication; Bilateral nephrolithiasis Allergies Active Allergy Reactions Criticality Noted Date Comments Prochlorperazine Psych complications 06/12/2020 Probably dystonic reaction. The patient does tolerate Phenergan Morphine Hives Low 03/20/2019 Pt feels the rash may have been from tape at the IV site. Sulfamethoxazole Hives High 03/03/2021 Trimethoprim Hives High 05/02/2018 documented as of this encounter (statuses as of 03/07/2024) Medications Medication Sig Dispensed Refills Start Date [...] THE MORNING. 30 Tablet 11 11/26/2023 Active busPIRone HCl 10 MG Oral [...] as needed for Pain, Moderate. 30 Tablet 5 01/26/2024 Active Ondansetron HCl 4 MG Oral [...] for shingles. 21 Tablet 02/29/2024 03/07/2024 Active metroNIDAZOLE 500 MG Oral Tablet (Flagyl) Take 1 Tablet by mouth in the morning and 1 Tablet before bedtime. X 7 days until gone.. 14 Tablet 12/11/2023 02/29/2024 Discontinue d(Medicatio n List Clean Up) oxyCODONE-Acetamin ophen 5-325 MG Oral Tablet (Percocet)Indicati ons:Kidney stone Take 1 Tablet by mouth every 8 hours as needed for Pain, Severe. Earliest refill 01/09/24 21 Tablet 01/26/2024 02/29/2024 Discontinue d(Medicatio n List Clean Up) oxyCODONE-Acetamin ophen 5-325 MG Oral Tablet (Percocet)Indicati ons:Kidney stone Take 1 Tablet by mouth every 8 hours as needed for Pain, Severe. Earliest refill 01/09/24 30 Tablet 02/26/2024 03/02/2024 Discontinue d(Refill) documented as of this encounter (statuses as of 03/07/2024) Active Problems Problem Noted Date Diagnosed Date [...] Menorrhagia with regular cycle 04/16/2021 [facility] OTHER*[id number] 01/24/2021 Gastroesophageal reflux disease with esophagitis 01/04/2019 Recurrent major depressive disorder, in full rem ission 01/04/2019 Irritable bowel syndrome wit h both constipation and diarrhea 01/04/2019 documented as of this encounter (statuses as of 03/07/2024) Resolved Problems Problem Noted Date Diagnosed Date [...] as of this encounter (statuses as of 03/07/2024) Immunizations Name Administration Dates Next Due COVID-19 [...] Sign Reading Time Taken Comments Blood Pressure 116/74 02/29/2024 1:42 PM EDT Pulse 108 02/29/2024 1:42 PM EDT Temperature 37.4 C (99.3 F) 02/29/2024 1:42 PM ED T Respiratory Rate 18 02/29/2024 1:42 PM EDT Oxygen Saturation - - Inhaled Oxygen Concentration - - Weight 90.7 kg (200 lb) 02/29/2024 1:42 PM EDT Height - - Body Mass Index 32.28 02/13/2024 9:16 AM EDT documented in this encounter Functional [...] as of this encounter Progress Notes * Dimas Doty, - 02/29/2024 2:06 PM EDT Subjective: Zan Snell is a 29 year old female. Chief Complaint Patient presents with Hospital Follow-Up HPI: PT here in follow-up. Pain in her upper back started about a week ago. It is a burning type pain. Can be pretty bad at times. Hurts with touch of clothes. Nothing visible as of yet. She was in the[place] a few weeks ago with blood in her urine. Culture came back negative. CT looked over with stones but no pyelo. Getting blood in her urine - every few days. She is scheduled with urology. Interested in seeing endocrine to consider surgery for hyperparathyroidism. Acid indigestion was bad with , constinued after delivery. She is on a PPI and pepcid. Still having symptoms. No blood or dark black in stool. BP great today. Getting headaches depite normal BP. 24 pounds down since pre-eclapsia. HEadache last Thursday made her throw up. Happen once per week. HEadaches come with nausea. Some vision changes. Migraine cocktail helped. HAs not had migraines before. HR always high lately. She is on Buspar and zoloft for mood. Getting better over time. She has flank pain a lot. Open to seeing MTM. PMHx, meds, and allergies reviewed Patient Active Problem List Diagnosis Gastroesophageal reflux disease with esophagitis Recurrent major depressive disorder, in full remission (HCC) Irritable bowel syndrome with both constipation and diarrhea [employer] OTHER*[id number] Menorrhagia with regular cycle NAFLD (nonalcoholic fatty liver disease) Obesity, Class III, BMI 40-49.9 (morbid obesity) (HCC) History of gastric bypass Intestinal postoperative nonabsorption Other dietary vitamin B12 deficiency anemia Iron deficiency Hyperparathyroidism (HCC) Hydronephrosis of right kidney Encounter for adjustment and management of vascular access device VRE (vancomycin resistant enterococcus) culture positive Low grade squamous intraepithelial lesion (LGSIL) on cervical Pap smear Cervical high risk human papillomavirus (HPV) DNA test positive Previous section complicating , antepartum condition or complication Bilateral nephrolithiasis Unspecified ovarian cyst, left side Current Outpatient Medications Medication Sig Dispense Refill [...] longer than 5 days 20 Tablet 0 oxyCODONE-Acetaminophen 5-325 MG Oral Tablet (Percocet) Take 1 Tablet by mouth every 8 hours as needed for Pain, Severe. Earliest refill 01/09/24 30 Tablet 0 No current facility-administered medications for this visit. Review of patient's allergies indicates: Allergen Reactions Sulfamethoxazole Hives Trimethoprim Hives Compazine [Prochlorperazine] Psych complications Probably dystonic reaction. The patient does tolerate Phenergan Morphine Hives Pt feels the rash may have been from tape at the IV site. OBJECTIVE: BP 116/74 | Pulse 108 | Temp 37.4 C (99.3 F) (Tympanic) | Resp 18 | Wt 90.7 kg (200 lb) | LMP 01/25/2024 (Approximate) | BMI 32.28 kg/m | BSA 2.05 m Estimated body mass index is 32.28 kg/m as calculated from the following: Height as of 02/13/24: 1.676 m (5' 6"). Weight as of this encounter: 90.7 kg (200 lb). BP Readings from Last 3 Encounters: 02/29/24 116/74 02/13/24 125/81 12/29/23 164/100 Wt Readings from Last 3 Encounters: 02/29/24 90.7 kg (200 lb) 02/13/24 87.6 kg (193 lb 1.6 oz) 12/29/23 101.8 kg (224 lb 6.4 oz) ROS: Negative except for above PHYSICAL EXAM: General: alert, healthy, and no distress Head: Normocephalic, No masses, lesions, tenderness or abnormalities Heart: regular rate & rhythm, no murmur, and no gallops Lungs: chest symmetric with normal AP diameter, no chest deformities noted, no chest wall tenderness, lungs clear to auscultation Back: back symmetric, no curvature, no costovertebral angle tenderness, range of motion is normal ASSESSMENT/Plan Gastroesophageal reflux disease with esophagitis without hemorrhage (Primary) - UPPER ENDOSCOPY GI REFERRAL OP Hyperparathyroidism (HCC) - ADULT ENDOCRINOLOGY REFERRAL OP Herpes zoster without complication - valACYclovir HCl 1 GM Oral Tablet (Valtrex); Take 1 Tablet by mouth in the morning and 1 Tablet at noon and 1 Tablet before bedtime. Do all this for 7 days. For 7 days for shingles. Bilateral nephrolithiasis - PHARMACIST MEDS THERAPY MGMT REFERRAL OP Other orders - Rizatriptan Benzoate 5 MG Oral Tablet; Take 1 Tablet by mouth as needed for Migraine. May repeat in 2 hours if needed I spent a total of 30 minutes on the date of service in preparation, delivery, and documentation ofthe care provided to this patient, excluding any time spent on the performance of any procedure or separately billable services. I don't see an active rash but this does sound like a shingles like pain. Will start valacyclovir. After putting in the MTM referral they informed me that they felt it was inappropriate. The above was discussed and understanding was expressed. Dimas Doty DO documented in this encounter Nursing Notes * Otilia Pearce LPN - 02/29/2024 1:41 PM EDT Randallkathya Vasquez Channing presents for hospital follow up. Medications & HM reviewed. This is a follow up after her admission for post pre-eclampsia. documented in this encounter Plan of Treatment Upcoming Encounters Date Type Department Care Team (Latest Contact Info) Description 03/08/2024 9:30 AM EDT [facility] [address] [place] [address] Lobito Carolina MD [address] [place] [address] 07/21/2024 1:15 PM EST Hospital Encounter ENDO GECL, Endoscopy [address] [phone] Ronna Luna MD [address] [facility] [place] [address] 07/21/2024 1:15 PM EST - 07/21/2024 1:45 PM EST Surgery ENDO GECL, Endoscopy Suite [facility] [address] [facility] [place] [phone] Ronna Luna MD [address] [place] [address] ESOPHAGOGASTRODUODENOSCOPY (EGD), FLEXIBLE, TRANSORAL, DIAGNOSTIC Scheduled Procedures Name Priority Associated Diagnoses Date/Ti or ESOPHAGOGASTRODUODENOSCOPY ( EGD), FLEXIBLE, TRANSORAL, DIAGNOSTIC Gastroesophageal reflux 07/21/2024 1:15 PM EST COLONOSCOPY FLEXIBLE PROXIMA L DIAGNOSTIC Recall History of colonic polyps Scheduled Referrals Name Type Priority Associated Diagnoses Orde r Schedule ADULT ENDOCRINOLOGY REFERRAL OP Referral Within 30 days (routine) Hyperparathyroidism (HCC) Ordered: 02/29/2024 UPPER ENDOSCOPY GI REFERRAL OP Referral Within 10 days (routine) Gastroesophageal reflux disease with esophagitis without hemorrhage Ordered: 02/29/2024 PHARMACIST MEDS THERAPY MGMT REFERRAL OP Referral Within 10 days (routine) Bilateral nephrolithiasis Ordered: 02/29/2024 Health Maintenance Due Date Last Done Comments [...] as of this encounter Visit Diagnoses Diagnosis Gastroesophageal reflux disease with esophagitis without hemorrhage- Primary Hyperparathyroidism (HCC) Hyperparathyroidism, unspecified Herpes zoster without complication Herpes zoster without mention of complication Bilateral nephrolithiasis Gastroesophageal reflux Esophageal reflux documented in this [...] Power of Attor gab? No Care Teams Online Marketing Analyst Relationship Specialty Start Date End Date Dimas Doty DO [address] [place] [address] PCP - General Family Medicine 06/09/19 documented as of this encounter
--- OUTSIDE RECORDS SUMMARY | 2024-03-17 18:40 | External Medical Summary | Summary of Care ---
Author Name Unknown Organization [facility] Address [address] [place] [address] Phone [phone] Care Team Providers Care Operating Room Registered Nurse Name Role Phone Dimas Doty DO Primary Care Provider [phone] Reason for Visit * Reason Onset Date Comments Referral 03/03/2024 Encounter Details Date Type Department Care Team (Late st Contact Info) Description 03/03/2024 Telephone Centralized Clinical Pharmacy Services, [facility] Bess [address] [place] [address] [place] [address] [facility] [address] [place] [address] Referral Allergies Active Allergy Reactions Criticality Noted Date Comments Prochlorperazine Psych complications 06/12/2020 Probably dystonic reaction. The patient does tolerate Phenergan Morphine Hives Low 03/20/2019 Pt feels the rash may have been from tape at the IV site. Sulfamethoxazole Hives High 03/03/2021 Trimethoprim Hives High 05/02/2018 documented as of this encounter (statuses as of 03/04/2024) Medications Medication Sig Dispensed Refills Start Date [...] Omeprazole 20 MG Oral Capsule Delayed Release (PriLOSEC)Indication s:Gastroesophageal reflux disease with esophagitis and hemorrhage Take [...] hours if needed 10 Tablet 02/29/2024 Active valACYclovir HCl 1 GM Oral Tablet (Valtrex)Indications :Herpes zoster without complication Take 1 Tablet by [...] Capsule before bedtime. 90 Capsule 03/01/2024 Active oxyCODONE-Acetaminop hen 5-325 MG Oral Tablet (Percocet)Indication s:Kidney stone Take 1 Tablet by mouth every 6 hours as needed for Pain, Severe. Earliest refill 01/09/24 40 Tablet 03/02/2024 Active documented as of this encounter (statuses as of 03/04/2024) Active Problems Problem Noted Date Diagnosed Date [...] Menorrhagia with regular cycle 04/16/2021 [facility] OTHER*[id number] 01/24/2021 Gastroesophageal reflux disease with esophagitis 01/04/2019 Recurrent major depressive disorder, in full rem ission 01/04/2019 Irritable bowel syndrome wit h both constipation and diarrhea 01/04/2019 documented as of this encounter (statuses as of 03/04/2024) Resolved Problems Problem Noted Date Diagnosed Date [...] as of this encounter (statuses as of 03/04/2024) Immunizations Name Administration Dates Next Due COVID-19 mRNA, LNP-s, No Pre serve, 2-Dose Series (ShopWell) 04/03/2021,06/26/2020,06/05/2020 DTaP Dipth/Tet/Acell Pertussis (Infanrix), Peds 01/06/2017,09/28/1997,09/18/1994,08/15,1993,1993 [...] encounter Miscellaneous Notes * Telephone Encounter - Ab Schwarz [facility] - 03/04/2024 10:27 AM EDT I do appreciate the further elaboration. [facility] is unable to assist in chronic pain related to kidney stones as that is outside our area of expertise and evolution or change in that pain may be related to evolution or change of the disease state which we are unable to diagnose. We are sorry we are unable to be of assistance for this patient. Ab Schwarz, PharmD, BCACP, [facility] Clinical Pharmacist 03/04/2024, 10:28 AM * Telephone Encounter - Dimas Doty DO - 03/03/2024 3:49 PM EDT Andrews Linares, Thanks for reviewing the case. Zan takes oxycodone around the clock every day for kidney stone related pain. It isn't just when kidney stones seem to go down her ureter acutely. Her and I have talked about how this doesn't exactly make sense and that other causes of her pain are probably present. She's been through lots of work-up ad no other specific cause has emerged. She's seen urology for y ears now with no improvement in pain despite many procedures. Dr. Da Silva and I thought of going to your team just as a different perspective on her pain. She seems open to at least trying other medications. I understand if you still say no but wanted to give you more info too. * Telephone Encounter - Ab Schwarz [facility] - 03/03/2024 1:38 PM EDT Referral received and reviewed. Reason for referral: Pain [facility] unable to manage acute pain and/or pain related to kidney stones. Would recommend referral to urology/nephrology for management/pain recommendations. Ab Schwarz PharmD, BCACP, [facility] Clinical Pharmacist 03/03/2024, 1:39 PM * Telephone Encounter - Tania Lay PHARM Tech - 03/03/2024 10:47 AM EDT Comments Pharmacist Medication Therapy Management: Minimum frequency patient should be seen in person for medication management: as appropriate per clinical condition and patient status By my signature, I understand that my patient Zan Snell will have her medication therapy managed by the [facility] ([facility]) per established policies,procedures, and protocols. I also certify that this referral may serve as an initiation of service for the management of drug therapy in the above noted patient. [facility] providers will be responsible for scheduling patient visits, obtaining appropriate laboratory studies, and adjusting medication management therapy per patient's need, in addition to those roles spelled out in the clinic policy, procedures, and drug management protocols. I understand that the service provided by the [facility] Clinic is voluntary and have informed patient that they can refuse the service at their discretion. I am aware that the [facility] will provide me with a copy of the patient encounter via my [employer] In[employer]. I authorize the [facility] Clinic to carry out these activities on my behalf. I consider this program to be a necessary part of the patient's medical care. Dimas Doty DO Order Specific Questions Referral Priority Within 10 days (routine) Where should this appointment be scheduled? [facility] Referring Provider Role: Primary Care Reason for Referral: Pain Pain Diagnosis: Other Further Details of Diagnosis: Nephrolithiasis Pain Treatment Options: Opioids and/or Non-opioids Does patient have a signed KIMBERLY? This is required for patients on opioids Yes Has patient completed a Urine Drug Screen in the past 3 months? This is required for patients on opioids No Pain Treatment Goal: Med Optimization documented in this encounter Plan of Treatment Upcoming Encounters Date Type Department Care Team (Latest Contact Info) Description 03/08/2024 9:30 AM EDT Telemedicine General Surgery, [place] [address] [place] [address] Lobito Carolina MD [address] [place] [address] 07/21/2024 1:15 PM EST Hospital Encounter ENDO GECL, Endoscopy [address] [phone] Ronna Luna MD [address] [place] [address] 07/21/2024 1:15 PM EST - 07/21/2024 1:45 PM EST Surgery ENDO GE, Endoscopy [address] [phone] Ronna Luna MD [address] [place] [address] ESOPHAGOGASTRODUODENOSCOPY (EGD), FLEXIBLE, TRANSORAL, DIAGNOSTIC Scheduled Procedures Name Priority Associated Diagnoses Date/Ti fl ESOPHAGOGASTRODUODENOSCOPY ( EGD), FLEXIBLE, TRANSORAL, DIAGNOSTIC Gastroesophageal [...] Power of Attor gab? No Care Teams Operating Room Registered Nurse Relationship Specialty Start Date End Date Dimas Doty DO [address] [place] [address] PCP - General Family Medicine 06/09/19 documented as of this encounter
--- OUTSIDE RECORDS SUMMARY | 2024-03-17 18:40 | External Medical Summary | Summary of Care ---
Author Name Unknown Organization [facility] Address [address] [place] [address] Phone [phone] Care Team Providers Care Industrial Engineering Analyst Name Role Phone Dimas Doty DO Primary Care Provider [phone] Reason for Visit * Reason Onset Date Comments Referral 03/03/2024 Encounter Details Date Type Department Care Team (Late st Contact Info) Description 03/03/2024 Telephone Centralized Clinical Pharmacy Services, Marquis Bess [address] [place] [address] [place] [address] [facility] [address] [place] [address] Referral Allergies Active Allergy Reactions Criticality [...] Menorrhagia with regular cycle 04/16/2021 BROWN RESEARCH OTHER*[id number] 01/24/2021 Gastroesophageal reflux disease with esophagitis 01/04/2019 [...] mRNA, LNP-s, No Pre serve, 2-Dose Series (YourNextLeap) 04/03/2021,06/26/2020,06/05/2020 DTaP Dipth/Tet/Acell Pertussis (Infanrix), Peds 01/06/2017,09/28/1997,09/18/1994,08/15,1993,1993 [...] encounter Miscellaneous Notes * Telephone Encounter - Dimas Doty DO - 03/03/2024 3:49 PM EDT Len Saldivar for reviewing the case. Zan takes oxycodone [...] too. * Telephone Encounter - Ab Schwarz RPh - 03/03/2024 1:38 PM EDT Referral received and reviewed. Reason for referral: Pain [facility] unable to manage acute pain and/or pain related to kidney stones. Would recommend referral to urology/nephrology for management/pain recommendations. Ab Schwarz, PharmD, BCACP, [facility] Clinical Pharmacist 03/03/2024, 1:39 PM Electronically signed by Ab Schwarz [facility] at 03/03/2024 1:39 PM EDT * Telephone Encounter - Tania Lay PHARM Tech - 03/03/2024 10:47 AM EDT Comments Pharmacist Medication Therapy Management: Minimum frequency patient should be seen in person for medication management: as appropriate per clinical condition and patient status By my signature, I understand that my patient Zan Snell will have her medication therapy managed by the [facility] Medication Therapy Disease Management Clinic ([facility]) per established policies,procedures, and protocols. I also certify that this referral may serve as an initiation of service for the management of drug therapy in the above noted patient. [facility] providers will be responsible for scheduling patient visits, obtaining appropriate laboratory studies, and adjusting medication management therapy per patient's need, in addition to those roles spelled out in the clinic policy, procedures, and drug management protocols. I understand that the service provided by the [facility] Clinic is voluntary and have informed patient that they can refuse the service at their discretion. I am aware that the [facility] will provide me with a copy of the patient encounter via my [employer]est Credit Card To Get Approved For. I authorize the [facility] to carry out these activities on my behalf. I consider this program to be a necessary part of the patient's medical care. Dimas Doty, DO Order Specific Questions Referral Priority Within 10 days (routine) Where should this appointment be scheduled? [facility] Referring Provider Role: Primary Care Reason [...] Contact Info) Description 03/08/2024 9:30 AM EDT [address] [address] Lobito Carolina MD [address] [facility] [place] [place] [address] 07/21/2024 1:15 PM EST Hospital Encounter ENDO GECL, Endoscopy [address] [place] [phone] Ronna Luna MD [address] [place] [address] 07/21/2024 1:15 PM EST - 07/21/2024 1:45 PM EST Surgery ENDO [facility], Endoscopy [address] [phone] Ronna Luna MD [address] [place] [address] ESOPHAGOGASTRODUODENOSCOPY (EGD), FLEXIBLE, TRANSORAL, DIAGNOSTIC Scheduled Procedures [...] Power of Attor gab? No Care Teams Industrial Engineering Analyst Relationship Specialty Start Date End Date Dimas Doty DO [address] [place] [address] PCP - General Family Medicine 06/09/19 documented as of this encounter
--- OUTSIDE RECORDS SUMMARY | 2024-03-17 18:41 | External Medical Summary | Summary of Care ---
Author Name Unknown Organization [facility] Address [address] [place] [address] Phone [phone] Care Team Providers Care Building Drafting Officer Name Role Phone Dimas Doty DO Primary Care Provider [phone] Reason for Visit * Reason Onset Date Comments Appointment 03/01/2024 Encounter Details Date Type Department Care Team (Late st Contact Info) Description 03/01/2024 Telephone Family Practice [facility] [place] [address] [facility] [place] [address] Dimas Doty DO 200 [facility] [place] [address] Appointment Allergies Active Allergy Reactions Criticality Noted Date Comments Prochlorperazine Psych complications 06/12/2020 Probably dystonic reaction. The patient does tolerate Phenergan Morphine Hives Low 03/20/2019 Pt feels the rash may have been from tape at the IV site. Sulfamethoxazole Hives High 03/03/2021 Trimethoprim Hives High 05/02/2018 documented as of this encounter (statuses as of 03/01/2024) Medications Medication Sig Dispensed Refills Start Date [...] than 5 days 20 Tablet 02/16/2024 Active oxyCODONE-Acetaminop hen 5-325 MG Oral Tablet (Percocet)Indication s:Kidney stone Take 1 Tablet by mouth every 8 hours as needed for Pain, Severe. Earliest refill 01/09/24 30 Tablet 02/26/2024 Active Rizatriptan Benzoate 5 MG Oral Tablet [...] for shingles. 21 Tablet 02/29/2024 03/07/2024 Active documented as of this encounter (statuses as of 03/01/2024) Active Problems Problem Noted Date Diagnosed Date [...] Menorrhagia with regular cycle 04/16/2021 BROWN RESEARCH OTHER*[id number] 01/24/2021 Gastroesophageal reflux disease with esophagitis 01/04/2019 Recurrent major depressive disorder, in full rem ission 01/04/2019 Irritable bowel syndrome wit h both constipation and diarrhea 01/04/2019 documented as of this encounter (statuses as of 03/01/2024) Resolved Problems Problem Noted Date Diagnosed Date [...] as of this encounter (statuses as of 03/01/2024) Immunizations Name Administration Dates Next Due COVID-19 [...] the money to buy more. Never true 11/28/20 23 Within the past 12 months, t [...] encounter Miscellaneous Notes * Telephone Encounter - Daly Rosales OSA - 03/01/2024 9:38 AM EDT Received request for EGD for reflux. Lmm for pt. documented in this encounter Plan of Treatment Scheduled Procedures Name Priority Associated Diagnoses Date/Ti [...] Power of Attor gab? No Care Teams Building Drafting Officer Relationship Specialty Start Date End Date Dimas Doty DO [address] [place] [address] PCP - General Family Medicine 06/09/19 documented as of this encounter
--- OUTSIDE RECORDS SUMMARY | 2024-03-17 18:41 | External Medical Summary | Summary of Care ---
Author Name Unknown Organization [facility] Address [address] [place] [address] Phone [phone] Care Team Providers Care Orthopedic Podiatrist Name Role Phone Dimas Doty DO Primary Care Provider [phone] Reason for Visit * Reason Onset Date Comments Med Request 03/01/2024 Encounter Details Date Type Department Care Team (Late st Contact Info) Description 03/01/2024 Telephone Family Practice [facility] [place] 200 [facility] [place] [address] Dimas Doty DO [address] [facility] [place] [address] Med Request Allergies Active Allergy Reactions Criticality Noted Date Comments Prochlorperazine Psych complications 06/12/2020 Probably dystonic reaction. The patient does tolerate Phenergan Morphine Hives Low 03/20/2019 Pt feels the rash may have been from tape at the IV site. Sulfamethoxazole Hives High 03/03/2021 Trimethoprim Hives High 05/02/2018 documented as of this encounter (statuses as of 03/02/2024) Medications Medication Sig Dispensed Refills Start Date [...] Capsule before bedtime. 90 Capsule 03/01/2024 Active documented as of this encounter (statuses as of 03/02/2024) Active Problems Problem Noted Date Diagnosed Date [...] Menorrhagia with regular cycle 04/16/2021 BROWN RESEARCH OTHER*[id number] 01/24/2021 Gastroesophageal reflux disease with esophagitis 01/04/2019 Recurrent major depressive disorder, in full rem ission 01/04/2019 Irritable bowel syndrome wit h both constipation and diarrhea 01/04/2019 documented as of this encounter (statuses as of 03/02/2024) Resolved Problems Problem Noted Date Diagnosed Date [...] as of this encounter (statuses as of 03/02/2024) Immunizations Name Administration Dates Next Due COVID-19 mRNA, LNP-s, No Pre serve, 2-Dose Series (EXTRABANCA) 04/03/2021,06/26/2020,06/05/2020 DTaP Dipth/Tet/Acell Pertussis (Infanrix), Peds 01/06/2017,09/28/1997,09/18/1994,08/15,1993,1993 [...] encounter Miscellaneous Notes * Telephone Encounter - Maryuri Biswas CPhT - 03/02/2024 3:02 PM EDT pt calling to check on status of oxycodone. Caller can be reached at [phone]. Thank you, Maryuri Biswas CphT Art Museum Docent III [facility]) 03/02/24 * Telephone Encounter - Keshia Dunn RPh - 03/02/2024 10:54 AM EDT Patient calling [...] runout of it. Please advise Thanks, Keshia Dunn, PharmD Clinical Pharmacist [facility] ([facility]) [phone] 03/02/2024 10:57 AM * Telephone Encounter - Vickie De Guzman CPhT - 03/02/2024 10:51 AM EDT Patient called in with side effects from Gabapentin, stating she feels like a zombie. Warm transferred to [facility] for consultation. Pt stating her Oxy/apap works better for the shingles Thank you, Vickie De Guzman CPhT Program Trainer Globe Cleaner [facility] ([facility]) 03/02/2024,10:51 AM * Telephone Encounter - Malini France RN - 03/01/2024 4:34 PM EDT Pt aware of below. * Telephone Encounter - Dimas Doty DO - 03/01/2024 3:42 PM EDT Please [...] but the pain is bad. Please call [phone] Thank you, Mercedes García CPhT [employer] Museum Docent III [facility] ([facility]) [address] [place] [address], [address] [address] documented in this encounter Plan of Treatment Upcoming Encounters Date Type Department Care Team (Latest Contact Info) Description 03/08/2024 9:30 AM EDT Telemedicine General Surgery, [place] [address] [place] [address] Lobito Carolina MD [address] [place] [address] 07/21/2024 1:15 PM EST Hospital Encounter ENDO [facility], Endoscopy [address] [phone] Ronna Luna MD [address] [place] [address] 07/21/2024 1:15 PM EST - 07/21/2024 1:45 PM EST Surgery ENDO [facility], Endoscopy [address] [phone] Ronna Luna MD [address] [place] [address] ESOPHAGOGASTRODUODENOSCOPY (EGD), FLEXIBLE, TRANSORAL, DIAGNOSTIC Scheduled Procedures [...] Power of Attor gab? No Care Teams Orthopedic Podiatrist Relationship Specialty Start Date End Date Dimas Doty DO [address] [place] [address] PCP - General Family Medicine 06/09/19 documented as of this encounter
--- OUTSIDE RECORDS SUMMARY | 2024-03-17 18:41 | External Medical Summary | Summary of Care ---
Author Name Unknown Organization [facility] Address [address] [place] [address] Phone [phone] Care Team Providers Care Extension Agent Name Role Phone Dimas Doty DO Primary Care Provider [phone] Reason for Visit * Reason Onset Date Comments Med Request 03/01/2024 Encounter Details Date Type Department Care Team (Late st Contact Info) Description 03/01/2024 Telephone Family Practice [facility] [place] 200 [facility] [place] [address] Dimas Doty DO 200 [facility] [place] [address] Med Request Allergies Active Allergy Reactions Criticality [...] Menorrhagia with regular cycle 04/16/2021 BROWN RESEARCH OTHER*[id number] 01/24/2021 Gastroesophageal reflux disease with esophagitis 01/04/2019 [...] mRNA, LNP-s, No Pre serve, 2-Dose Series ([employer]) 04/03/2021,06/26/2020,06/05/2020 DTaP Dipth/Tet/Acell Pertussis (Infanrix), Peds 01/06/2017,09/28/1997,09/18/1994,08/15,1993,1993 [...] encounter Miscellaneous Notes * Telephone Encounter - Malini France RN [...] but the pain is bad. Please call [phone] Thank you, Mercedes García CPhT Application Support Administrator III [facility] ([facility]) [address] [place] [address], [address] [address] documented in this encounter Plan of Treatment Upcoming Encounters Date Type Department Care Team (Latest Contact Info) Description 03/08/2024 9:30 AM EDT Telemedicine General Surgery, [place] [address] [place] [address] Lobito Carolina MD [address] [place] [address] 07/21/2024 1:15 PM EST Hospital Encounter ENDO [facility], Endoscopy [address] [phone] Ronna Luna MD [address] [place] [address] 07/21/2024 1:15 PM EST - 07/21/2024 1:45 PM EST Surgery ENDO [facility], Endoscopy [address] [phone] Ronna Luna MD [address] [place] [address] ESOPHAGOGASTRODUODENOSCOPY (EGD), FLEXIBLE, TRANSORAL, DIAGNOSTIC Scheduled Procedures Name Priority Associated Diagnoses Date/Ti ar ESOPHAGOGASTRODUODENOSCOPY ( EGD), FLEXIBLE, TRANSORAL, DIAGNOSTIC Gastroesophageal [...] Power of Attor gab? No Care Teams Extension Agent Relationship Specialty Start Date End Date Dimas Doty DO [address] [place] [address] PCP - General Family Medicine 06/09/19 documented as of this encounter
--- OUTSIDE RECORDS SUMMARY | 2024-03-17 18:41 | External Medical Summary | Summary of Care ---
Author Name Unknown Organization [facility] Address [address] [place] [address] Phone [phone] Care Team Providers Care Carding Machine Operator Name Role Phone Dimas Doty DO Primary Care Provider [phone] Reason for Visit * Reason Onset Date Comments Med Request 03/01/2024 Encounter Details Date Type Department Care Team (Late st Contact Info) Description 03/01/2024 Telephone Family Practice [facility] [place] 200 [facility] [place] [address] Dimas Doty DO 200 [facility] [place] [address] Med Request Allergies Active Allergy Reactions Criticality [...] Menorrhagia with regular cycle 04/16/2021 BROWN RESEARCH OTHER*[id number] 01/24/2021 Gastroesophageal reflux disease with esophagitis 01/04/2019 [...] mRNA, LNP-s, No Pre serve, 2-Dose Series ([employer]ont) 04/03/2021,06/26/2020,06/05/2020 DTaP Dipth/Tet/Acell Pertussis (Infanrix), Peds 01/06/2017,09/28/1997,09/18/1994,08/15,1993,1993 [...] encounter Miscellaneous Notes * Telephone Encounter - Vickie De Guzman CPhT - 03/02/2024 10:51 AM EDT Patient called in with side effects from Gabapentin, stating she feels like a zombie. Warm transferred to [facility] for consultation. Pt stating her Oxy/apap works better for the shingles Thank you, Vickie De Guzman CPhT Arch Cushion Press Operator Pet Sitter [facility] ([facility]) 03/02/2024,10:51 AM [...] but the pain is bad. Please call [phone] Thank you, Mercedes García CPhT Nursing Secretary III [facility] ([facility]) [address] [place] [address], [address] [address] documented in this encounter Plan of Treatment Upcoming Encounters Date Type Department Care Team (Latest Contact Info) Description 03/08/2024 9:30 AM EDT [facility] [address] [place] [address] Lobito Carolina MD [address] [place] [address] 07/21/2024 1:15 PM EST Hospital Encounter ENDO GECL, Endoscopy [address] [phone] Ronna Luna MD [address] [place] [address] 07/21/2024 1:15 PM EST - 07/21/2024 1:45 PM EST Surgery ENDO GECL, Endoscopy [address] [phone] Ronna Luna MD [address] [place] [address] ESOPHAGOGASTRODUODENOSCOPY (EGD), FLEXIBLE, TRANSORAL, DIAGNOSTIC Scheduled Procedures Name Priority Associated Diagnoses Date/Ti sd ESOPHAGOGASTRODUODENOSCOPY ( EGD), FLEXIBLE, TRANSORAL, DIAGNOSTIC Gastroesophageal [...] Power of Attor gab? No Care Teams Carding Machine Operator Relationship Specialty Start Date End Date Dimas Doty DO [address] [place] [address] PCP - General Family Medicine 06/09/19 documented as of this encounter
--- OUTSIDE RECORDS SUMMARY | 2024-03-17 18:41 | External Medical Summary | Summary of Care ---
Author Name Unknown Organization [facility] Address [address] [place] [address] Phone [phone] Care Team Providers Care Electrical Unit Rebuilder Name Role Phone Dimas Doty DO Primary Care Provider [phone] Reason for Visit * Reason Onset Date Comments Referral 03/03/2024 Encounter Details Date Type Department Care Team (Late st Contact Info) Description 03/03/2024 Telephone Centralized Clinical Pharmacy Services, Marquis Bess [address] [place] [address] [place] [address] [facility] [address] [address] [place] [address] Referral Allergies Active Allergy Reactions Criticality [...] Menorrhagia with regular cycle 04/16/2021 BROWN RESEARCH OTHER*[id number] 01/24/2021 Gastroesophageal reflux disease with esophagitis 01/04/2019 [...] mRNA, LNP-s, No Pre serve, 2-Dose Series (THUBIT) 04/03/2021,06/26/2020,06/05/2020 DTaP Dipth/Tet/Acell Pertussis (Infanrix), Peds 01/06/2017,09/28/1997,09/18/1994,08/15,1993,1993 [...] Notes * Telephone Encounter - Ab Schwarz [facility] - 03/03/2024 1:38 PM EDT Referral received and reviewed. Reason for referral: Pain [facility] unable to manage acute pain and/or pain related to kidney stones. Would recommend referral to urology/nephrology for management/pain recommendations. Ab Schwarz PharmD, BCACP, [facility] Clinical Pharmacist 03/03/2024, 1:39 PM * Telephone Encounter - Tania Lay PHARM Tech - 03/03/2024 10:47 AM EDT Comments Pharmacist Medication Therapy Management: Minimum frequency patient should be seen in person for medication management: as appropriate per clinical condition and patient status By my signature, I understand that my patient Zan Snell will have her medication therapy managed by the [facility] Medication Therapy Disease Management [facility] ([facility]) per established policies,procedures, and protocols. I also certify that this referral may serve as an initiation of service for the management of drug therapy in the above noted patient. [facility] providers will be responsible for scheduling patient visits, obtaining appropriate laboratory studies, and adjusting medication management therapy per patient's need, in addition to those roles spelled out in the clinic policy, procedures, and drug management protocols. I understand that the service provided by the [facility] is voluntary and have informed patient that they can refuse the service at their discretion. I am aware that the [facility] Clinic will provide me with a copy of the patient encounter via my [employer] InCEDU. I authorize the [facility] to carry out these activities on my behalf. I consider this program to be a necessary part of the patient's medical care. Dimas Doty, DO Order Specific Questions Referral Priority Within 10 days (routine) Where should this appointment be scheduled? [facility] Referring Provider Role: Primary Care Reason for [...] AM EDT [facility] [address] [place] [address] Lobito Carolina MD [address] [place] [address] 07/21/2024 1:15 PM EST Hospital Encounter ENDO GECL, Endoscopy [address] [phone] Ronna Luna MD [address] [place] [address] 07/21/2024 1:15 PM EST - 07/21/2024 1:45 PM EST Surgery ENDO GE[facility], Endoscopy [address] [phone] Ronna Luna MD [address] [place] [address] ESOPHAGOGASTRODUODENOSCOPY (EGD), FLEXIBLE, TRANSORAL, DIAGNOSTIC Scheduled Procedures [...] Power of Attor agb? No Care Teams Electrical Unit Rebuilder Relationship Specialty Start Date End Date Dimas Doty DO [address] [place] [address] PCP - General Family Medicine 06/09/19 documented as of this encounter
--- OUTSIDE RECORDS SUMMARY | 2024-03-17 18:41 | External Medical Summary | Summary of Care ---
Author Name Unknown Organization [facility] Address [address] [place] [address] Phone [phone] Care Team Providers Care Communications Strategist Name Role Phone Levar Ordonez DO Primary Care Provider [phone] Reason for Referral * Medication Prior Authorization - Closed Specialty Diagnoses / Procedures Referred By Rosendo trujillo Referred To Contact Diagnoses Kidney stone Levar Ordonez DO [address] [place] [address] Referral ID Status Reason Start Date Expiration Date Visits Re quested Visits Authorized [id number] Closed [phone] Reason for Visit * Reason Onset Date Comments Med Request 03/01/2024 Encounter Details Date Type Department Care Team (Late st Contact Info) Description 03/01/2024 Telephone Family Practice [facility] [address] [place] [address] Levar Ordonez DO [address] [place] [address] Med Request Allergies Active Allergy Reactions Criticality [...] Menorrhagia with regular cycle 04/16/2021 BROWN RESEARCH OTHER*[id number] 01/24/2021 Gastroesophageal reflux disease with esophagitis 01/04/2019 [...] mRNA, LNP-s, No Pre serve, 2-Dose Series (Estately) 04/03/2021,06/26/2020,06/05/2020 DTaP Dipth/Tet/Acell Pertussis (Infanrix), Peds 01/06/2017,09/28/1997,09/18/1994,08/15,1993,1993 [...] of oxycodone. Caller can be reached at [phone]. Thank you, Maryuri Biswas [facility] Satellite Installer III Centralized Clinical Pharmacy Services([facility]) 03/02/24 * Telephone Encounter - Keshia Dunn [facility] - 03/02/2024 10:54 AM EDT Patient calling [...] Clinical Pharmacist [facility] ([facility]) [phone] 03/02/2024 10:57 AM * Telephone Encounter - Vickie De Guzman CPhT - 03/02/2024 10:51 AM EDT Patient called in with side effects from Gabapentin, stating she feels like a zombie. Warm transferred to [facility] for consultation. Pt stating her Oxy/apap works better for the shingles Thank you, Vickie De Guzman CPhT Composing Room Machinist Auto Garage Mechanic [facility] Services ([facility]) 03/02/2024,10:51 AM [...] but the pain is bad. Please call [phone] Thank you, Mercedes García CPhT Satellite Installer III [facility] ([facility]) [address] [place] [address], [address] [address] documented in this encounter Plan of Treatment Upcoming Encounters Date Type Department Care Team (Latest Contact Info) Description 03/08/2024 9:30 AM EDT Telemedicine General Surgery, [place] [address] [place] [address] Lobito Carolina MD [address] [place] [address] 07/21/2024 1:15 PM [facility] Hospital Encounter ENDO [facility], Endoscopy [address] [phone] Ronna Luna MD [address] [place] [address] 07/21/2024 1:15 PM EST - 07/21/2024 1:45 PM EST Surgery ENDO [facility], Endoscopy [address] [place] [phone] Ronna Luna MD [address] [place] [address] ESOPHAGOGASTRODUODENOSCOPY (EGD), FLEXIBLE, TRANSORAL, DIAGNOSTIC Scheduled Procedures [...] Power of Attor gab? No Care Teams Communications Strategist Relationship Specialty Start Date End Date Levar Ordonez DO [address] [place] [address] PCP - General Family Medicine 06/09/19 documented as of this encounter
--- OUTSIDE RECORDS SUMMARY | 2024-03-17 18:41 | External Medical Summary | Summary of Care ---
Author Name Unknown Organization [facility] Address [address] [place] [address] Phone [phone] Care Team Providers Care Estimate Clerk Name Role Phone Dimas Doty DO Primary Care Provider [phone] Reason for Visit * Reason Onset Date Comments Appointment 03/01/2024 Encounter Details Date Type Department Care Team (Late st Contact Info) Description 03/01/2024 Telephone Family Practice [facility] [place] [address] [facility] [place] [address] Dimas Doty DO [address] [facility] [place] [address] Appointment Allergies Active Allergy Reactions Criticality Noted [...] Menorrhagia with regular cycle 04/16/2021 [facility] OTHER*[id number] 01/24/2021 Gastroesophageal reflux disease with esophagitis 01/04/2019 [...] Encounter - Daly Rosales OSA - 03/01/2024 12:00 PM EDT Jordon'd 07/21/24. * Telephone Encounter - Daly Rosales OSA - 03/01/2024 9:38 AM EDT Received request for EGD for reflux. Lmm for pt. documented in this encounter Plan of Treatment Upcoming Encounters Date Type Department Care Team (Latest Contact Info) Description 07/21/2024 1:15 PM EST Hospital Encounter ENDO [facility], Endoscopy [address] [place] [phone] Ronna Luna MD [address] [place] [address] 07/21/2024 1:15 PM EST - 07/21/2024 1:45 PM EST Surgery ENDO [facility] [address] [phone] Ronna Luna MD [address] [place] [address] ESOPHAGOGASTRODUODENOSCOPY (EGD), FLEXIBLE, TRANSORAL, DIAGNOSTIC Scheduled Procedures Name Priority Associated Diagnoses Date/Ti va ESOPHAGOGASTRODUODENOSCOPY ( EGD), FLEXIBLE, TRANSORAL, DIAGNOSTIC Gastroesophageal [...] Power of Attor gab? No Care Teams Estimate Clerk Relationship Specialty Start Date End Date Dimas Doty DO [address] [place] [address] PCP - General Family Medicine 06/09/19 documented as of this encounter
--- OUTSIDE RECORDS SUMMARY | 2024-03-17 18:41 | External Medical Summary | Summary of Care ---
Author Name Unknown Organization [facility] Address [address] [place] [address] Phone [phone] Care Team Providers Care Professional Volleyball Player Name Role Phone Dimas Doty DO Primary Care Provider [phone] Reason for Visit * Reason Onset Date Comments Med Request 03/01/2024 Encounter Details Date Type Department Care Team (Late st Contact Info) Description 03/01/2024 Telephone Family Practice [facility] [place] [address] [facility] [place] [address] Dimas Doty DO [address] [facility] [place] [address] Med Request Allergies Active Allergy Reactions Criticality [...] Menorrhagia with regular cycle 04/16/2021 [facility] OTHER*[id number] 01/24/2021 Gastroesophageal reflux disease with esophagitis 01/04/2019 [...] mRNA, LNP-s, No Pre serve, 2-Dose Series (Netgen) 04/03/2021,06/26/2020,06/05/2020 DTaP Dipth/Tet/Acell Pertussis (Infanrix), Peds 01/06/2017,09/28/1997,09/18/1994,08/15,1993,1993 [...] encounter Miscellaneous Notes * Telephone Encounter - Keshia Dunn [facility] - 03/02/2024 10:54 AM EDT Patient [...] Clinical Pharmacist [facility] [phone] 03/02/2024 10:57 AM * Telephone Encounter - Vickie De Guzman CPhT - 03/02/2024 10:51 AM EDT Patient called in with side effects from Gabapentin, stating she feels like a zombie. Warm transferred to [facility] for consultation. Pt stating her Oxy/apap works better for the shingles Thank you, Vickie De Guzman [facility]) 03/02/2024,10:51 AM [...] but the pain is bad. Please call [phone] Thank you, Mercedes García CPhT [employer] Ac[employer] Program Manager III [facility] ([facility]) [address] [place] [address], [address] [address] documented in this encounter Plan of Treatment Upcoming Encounters Date Type Department Care Team (Latest Contact Info) Description 03/08/2024 9:30 AM EDT Telemedicine General Surgery, [place] [address] [place] [address] Lobito Carolina MD [address] [place] [address] 07/21/2024 1:15 PM [facility] Hospital Encounter ENDO [facility], Endoscopy [address] [phone] Ronan Luna MD [address] [place] [address] 07/21/2024 1:15 PM EST - 07/21/2024 1:45 PM EST Surgery ENDO [facility], Endoscopy Suite [facility] [address] [facility] [place] [phone] Ronna Luna MD [address] [place] [address] ESOPHAGOGASTRODUODENOSCOPY (EGD), FLEXIBLE, TRANSORAL, DIAGNOSTIC Scheduled Procedures [...] Power of Attor gab? No Care Teams Professional Volleyball Player Relationship Specialty Start Date End Date Dimas Doty DO [address] [place] [address] PCP - General Family Medicine 06/09/19 documented as of this encounter
[2024-03-17] MEDS: SODIUM CHLORIDE 0.9% 500 ML IV ONE (20:16)
[2024-03-17] MEDS: busPIRone 5 MG TAB PO SCH (20:17)
[2024-03-18] MEDS: PRENATAL VITAMIN 1 TAB PO SCH (08:22)
[2024-03-18] MEDS: SERTRALINE HCL 100 MG TABLET PO SCH (08:22)
[2024-03-18] MEDS: PANTOprazole 40 MG TAB PO SCH (08:22)
[2024-03-18] MEDS: CHOLECALCIFEROL 125 MCG (5,000 UNITS) TAB PO SCH (08:22)
[2024-03-18] MEDS: ERTAPENEM 1000MG 1,000 MG/10 ML SYR IV SCH (08:29)
[2024-03-18 09:08] LABS: Hemoglobin 11.9 g/dl (12.0-16.0); Mean Corpuscular Hemoglobin 28.3 pg (25.0-34.0); Mean Corpuscular Hgb Conc 32.2 g/dL (32.0-36.0); Mean Corpuscular Volume 88.1 fL (80.0-100.0); Mean Platelet Volume 9.4 fL (9.4-12.4); Platelet Count 303 K/uL (130-400); RDW Coefficient of Variation 15.3 % (11.5-14.5); RDW Standard Deviation 48.1 fL (36.4-46.3); White Blood Count 5.76 K/ul (4.8-10.8)
--- NOTE | 2024-03-18 09:09 | Urology Progress Note ---
Date of Service March 18, 2024 Assessment & Plan (1) Acute left flank pain: (2) Complicated UTI (urinary tract infection): Plan: 29 yo/F admitted for left flank pain and complicated UTI. Afebrile with stable vitals Labs reviewedcreatinine 0.61, no leukocytosis Subjectively feeling better today Urine culture prelim with gram-negative bacilli Continue with broad-spectrum antibiotics and narrow per sensitivity data when available No intervention at this time Can consider CT imaging if she worsens or decompensates will sign off, will arrange outpatient follow-up with our service, recall as needed Admission and Anticipated Discharge Date Admission Date: March 17, 2024 Subjective Reports she is feeling better today. Intermittent left flank pain. Voiding without difficulty. Notes some dysuria. No nausea, vomiting, fever or chills. Review of Systems Constitutional: as per Subjective / HPI Genitourinary: as per Subjective / HPI Physical Exam Constitutional: well developed and well nourished; no acute distress Respiratory: normal respiratory effort; no respiratory distress and no labored breathing Gastrointestinal (Abdomen): Inspection/Auscultation: abdomen normal to inspection Musculoskeletal: Head/Neck/Chest: normocephalic Neurologic: moves all extremities and awake Psychiatric: Orientation: alert and oriented x 3 Results & Data Vital Signs (Past 12 Hours) Vital Signs Temp Pulse Resp BP Pulse Ox O2 Del Method 03/18/24 07:12 36.6 C 76 18 109/74 99 Room Air PG Care Time/CCT Total # of Minutes Spent Total Time Spent with Patient: Total time spent is greater than 50% in coordination of care (as documented) at patient's floor/unit and/or counseling patient: Coding Level of Care Code 63185 SUB INP/OBS CARE 1/25MIN Diagnoses Acute left flank pain R10.9 Complicated UTI (urinary tract infection) N39.0
[2024-03-18 09:19] LABS: Calcium 8.7 mg/dl (8.6-10.3); Magnesium 1.8 mg/dl (1.7-2.4); Potassium 3.9 mmol/L (3.5-5.1)
[2024-03-18 09:24] LABS: BUN Creatinine Ratio 27.9 (10-20); Creatinine Clr Calc Pharmacy 148.8 ml/min; Phosphorus 4.2 mg/dl (2.5-4.9)
--- NOTE | 2024-03-18 12:26 | Hospitalist Progress Note ---
Date of Service March 18, 2024 Assessment & Plan (1) Complicated UTI (urinary tract infection): Plan Zan Snell is a 29y/o F with PMHx significant for hyperparathyroidism, left- sided ovarian cyst, GERD with esophagitis, IBS with both constipation and diarrhea, nonalcoholic fatty liver disease, iron deficiency anemia, depression, morbid obesity s/p gastric bypass, dysmenorrhea, complicated UTIs and recurrent kidney stones who presented to the ED for evaluation of left flank pain with associated fevers and nausea/vomiting. Patient recently had bilateral uteroscopy with laser lithotripsy and stone basket extraction back in December 2023. She had extensive stone disease bilaterally with the larger stones on the right and obstructing stone on the left. Patient has been dealing with severe obstructive issues and recurrent UTIs with multidrug resistant infections. She has had episodes of VRE and Klebsiella growing in her urine in addition to ESBL E. coli. Patient reports that she has had to have a PICC line placed in the past for IV antibiotics due to a complicated UTI. Complicated UTI: No leukocytosis, labs rather unremarkable. UA suggestive of infection. Urine test negative. Bilateral renal ultrasound with no hydronephrosis, did note a nonobstructing left renal calculus measuring up to 5mm. S/p 1g IV ertapenem, 6mg IV morphine, 15mg IV Toradol and antiemetics in the ED. Urine culture pending. Continue IV ertapenem pending urine culture result. Urology consulted. No plan for intervention at this time. Plan to hold off on CTAP at this time given that there are no abnormal findings on the renal ultrasound and the patient is clinically stable. If patient were to clinically decompensate, recommendation would be to get a CTAP for further evaluation. Continue with pain control, as needed antiemetics. Patient has previously followed with Urology at [facility]. Other Chronic Medical Conditions: Depression, GERD --> Can continue home medications for these specific conditions. DVT Prophylaxis: SCDs/TEDs for now. Code Status: FULL CODE PCP: Dimas Doty DO Disposition: Med/Surg Admission and Anticipated Discharge Date Admission Date: March 17, 2024 Subjective Pt seen in follow up of complicated UTI, currently on ertapenem Laying in bed in NAD No fever, chills, chest pain or shortness of breath. No nausea or abdominal pain. Reports flank pain is improved Ucultx - pending Pt was seen by urology Review of Systems Review of Systems: All systems reviewed & are unremarkable except as noted in Subjective Physical Exam Physical Exam: General Appearance:Moderately built and nourished, no apparent distress Head: normocephalic, Atraumatic Eyes: normal inspection, EOMI Neck: supple Respiratory/Chest: Normal breath sounds, CTA, No accessory muscle use Cardiovascular: S1, S2, No murmur Abdomen/GI:Soft, L flank tender (improved), Bowel sounds present Extremities/Musculoskeletal:normal inspection, no edema Neurologic/Psych:AAOX3, grossly no focal neurological deficits Skin: warm, dry Results & Data Results & Data Vital Signs (Past 12 Hours) Vital Signs Temp Pulse Resp BP Pulse Ox O2 Del Method 03/18/24 07:12 36.6 C 76 18 109/74 99 Room Air Laboratory Results 03/18/24 03/17/24 Range/Units 08:46 09:35 WBC 5.76 (4.8-10.8) K/ul RBC 4.20 (4.20-5.40) M/uL Hgb 11.9 L (12.0-16.0) g/dl Hct 37.0 (37.0-47.0) % MCV 88.1 (80.0-100.0) fL MCH 28.3 (25.0-34.0) pg MCHC 32.2 (32.0-36.0) g/dL RDW Std Deviation 48.1 H (36.4-46.3) fL RDW Coeff of Coral 15.3 H (11.5-14.5) % Plt Count 303 (130-400) K/uL MPV 9.4 (9.4-12.4) fL Sodium 140 (136-145) mmol/L Potassium 3.9 (3.5-5.1) mmol/L Chloride 108 H (98-107) mmol/L Carbon Dioxide 25 (21-32) mmol/L Anion Gap 7 (3-11) BUN 17 (6-23) mg/dl Creatinine 0.61 (0.6-1.2) mg/dl Est Cr Clr Drug Dosing 148.8 ml/min eGFR 122.50 BUN/Creatinine Ratio 27.9 H (10-20) Glucose 105 H (70-99(Fasting)) mg/dl Calcium 8.7 (8.6-10.3) mg/dl Phosphorus 4.2 (2.5-4.9) mg/dl Magnesium 1.8 (1.7-2.4) mg/dl Urine Test Negative (Negative) Medications Administered Current Inpatient Medications Acetaminophen (Acetaminophen 325 Mg Tab) 650 mg PO Q4H PRN PRN Reason: pain/fever Stop: 04/16/24 16:40 Buspirone HCl (Buspirone 5 Mg Tab) 10 mg PO HS CHELSEY Stop: 04/16/24 20:59 Last Admin: 03/17/24 20:17 Dose: 10 mg Ertapenem (Invanz 1000mg) 1,000 mg in 10 mls @ 2 mls/min IV Q24H CHELSEY Stop: 03/28/24 08:59 Last Admin: 03/18/24 08:29 Dose: 2 mls/min Ketorolac Tromethamine (Ketorolac 30 Mg/Ml Vial) 30 mg IV Q6H PRN PRN Reason: Mild-Mod Pain (Scale 1-6) Stop: 03/22/24 13:15 Last Admin: 03/18/24 11:24 Dose: 30 mg Morphine Sulfate (Morphine Sulfate 2 Mg/Ml Carp) 2 mg IV Q4H PRN PRN Reason: Severe Pain (Scale 7, 8, 9,10) Stop: 03/31/24 13:15 Last Admin: 03/18/24 07:29 Dose: 2 mg Ondansetron HCl (Ondansetron Inj 2 Mg/Ml 2 Ml Vial) 4 mg IV Q6H PRN PRN Reason: Nausea Stop: 04/16/24 16:40 Last Admin: 03/18/24 11:24 Dose: 4 mg Ondansetron HCl (Ondansetron Inj 2 Mg/Ml 2 Ml Vial) 4 mg IV Q6H PRN PRN Reason: Nausea And Vomiting Stop: 04/16/24 16:40 Pantoprazole Sodium (Pantoprazole 40 Mg Tab) 40 mg PO DAILY CHELSEY; Protocol Stop: 04/17/24 08:59 Last Admin: 03/18/24 08:22 Dose: 40 mg Polyethylene Glycol (Polyethylene (Miralax) 17 Gm Pack) 17 gm PO DAILY PRN PRN Reason: Constipation Stop: 04/16/24 16:40 Prenat Multivit/Slip Feeder/Iron/Folic Ac ( Vitamin 1 Tab) 1 tab PO DAILY CHELSEY Stop: 04/17/24 08:59 Last Admin: 03/18/24 08:22 Dose: 1 tab Sertraline HCl (Sertraline Hcl 100 Mg Tablet) 100 mg PO DAILY CHELSEY Stop: 04/17/24 08:59 Last Admin: 03/18/24 08:22 Dose: 100 mg Vitamin D (Cholecalciferol 125 Mcg (5,000 Units) Tab) 125 mcg PO DAILY CHELSEY Stop: 04/17/24 08:59 Last Admin: 03/18/24 08:22 Dose: 125 mcg
[2024-03-18] MEDS: ACETAMINOPHEN 325 MG TAB PO PRN (14:54)
[2024-03-18] MEDS: oxyCODONE HCL IR 5 MG TAB (IMMEDIATE RELEASE) PO PRN (15:32)
[2024-03-18 16:12] VITALS: RESP 16
--- NOTE | 2024-03-18 19:17 | CT Scan Report ---
CT SCAN OF THE ABDOMEN AND PELVIS WITHOUT IV CONTRAST CLINICAL HISTORY: Hematuria. COMPARISON STUDY: Abdominal CT dated 03/09/2023. TECHNIQUE: CT scan of the abdomen and pelvis is performed from the lung bases to the proximal femora. Images are reviewed in the axial, sagittal, and coronal planes. IV contrast was not administered for this examination. A dose lowering technique was utilized adhering to the principles of ALARA. CT DOSE: 1311.78 mGy.cm FINDINGS: Lung bases: The heart is normal in size and without pericardial effusion. The lung bases are clear. Liver: The unenhanced liver is normal in size, contour, and attenuation. There is no intrahepatic tyra iary ductal dilatation. Gallbladder: Surgically absent note clips in the gallbladder fossa. Spleen: Normal in size and attenuation. Pancreas: Unremarkable. Adrenal glands: Unremarkable. Kidneys: The unenhanced kidneys are normal in size and without hydronephrosis. There are at least 5 p unctate nonobstructing left renal calculi. The 2 other nonobstructing calculus in the right upper deanna e. No ureteral stone is identified. There is no evidence of contour deforming renal mass lesion. Abdominal vasculature: The abdominal aorta is normal in course and caliber. Bowel: Postsurgical change is consistent with a history of Otilia-en-Y gastric bypass surgery. There is moderate colonic fecal retention. No bowel obstruction is seen. The appendix is surgically absent. Peritoneum: There is no intraperitoneal free air or abdominal ascites. There is a fat-containing umbi lical hernia. A fat-containing supraumbilical hernia is seen on image #154. Lymphadenopathy: None. Pelvic viscera: The bladder, uterus, and adnexa are normal as visualized. There are bilateral ovarian follicles. Skeletal structures: No lytic or blastic lesions are seen. IMPRESSION: 1. No acute infectious or inflammatory findings are identified in the abdomen or pelvis. 2. Bilateral nephrolithiasis. 3. There is postsurgical change from a Otilia-en-Y gastric bypass procedure. No bowel obstruction is se en. 4. Additional findings as above. ACT 112: Negative or not required by law. Electronically signed by: Garrison Mar M.D. 03/18/2024 7:15 PM
[2024-03-18 20:59] VITALS: TEMP 97.7
[2024-03-19 06:39] LABS: Hematocrit (blood only) 36.4 % (37.0-47.0); Hemoglobin 11.5 g/dl (12.0-16.0); Mean Corpuscular Hgb Conc 31.6 g/dL (32.0-36.0); Mean Corpuscular Volume 88.8 fL (80.0-100.0); Mean Platelet Volume 9.4 fL (9.4-12.4); Platelet Count 303 K/uL (130-400); RDW Coefficient of Variation 14.8 % (11.5-14.5); RDW Standard Deviation 47.2 fL (36.4-46.3); White Blood Count 5.85 K/ul (4.8-10.8)
[2024-03-19 06:56] LABS: BUN Creatinine Ratio 22.4 (10-20); Calcium 8.9 mg/dl (8.6-10.3); Creatinine Clr Calc Pharmacy 156.5 ml/min; Magnesium 1.9 mg/dl (1.7-2.4); Phosphorus 4.3 mg/dl (2.5-4.9); Potassium 4.3 mmol/L (3.5-5.1)
[2024-03-19 07:15] VITALS: BP 102/76; PULSE 71; O2SAT 97
--- NOTE | 2024-03-19 11:08 | Urology Progress Note ---
Date of Service March 19, 2024 Assessment & Plan (1) Acute left flank pain: (2) Complicated UTI (urinary tract infection): Plan: 29 yo/F admitted for left flank pain and complicated UTI. Subjectively improved today CT is very reassuring We discussed the small stone fragment she believes she passed this morning, I am very uncertain that this was the cause of her pain given the lack of findings on CT Once deemed medically stable, she can be discharged home Admission and Anticipated Discharge Date Admission Date: March 18, 2024 Subjective Had continued pain yesterday which prompted a CT I have personally reviewed the CT She does not appear to have any ureteral stones, she does have a few punctate stones in the kidney but nothing of substance Nor did I really appreciate any large stones within the bladder She reports she passed a tiny submillimeter fragment of stone this morning, she reports that her pain has improved today She seems reassured by the fact that I do not see any ureteral stones on her CT She seems anxious to go home Results & Data Vital Signs (Past 12 Hours) Vital Signs Temp Pulse Resp BP Pulse Ox O2 Del Method 03/19/24 07:15 Room Air 03/19/24 07:12 36.5 C 71 16 102/76 97 Room Air PG Care Time/CCT Total # of Minutes Spent Total Time Spent with Patient: Total time spent is greater than 50% in coordination of care (as documented) at patient's floor/unit and/or counseling patient: Coding Level of Care Code 18285 SUB INP/OBS CARE 2/35MIN Diagnoses Acute left flank pain R10.9 Complicated UTI (urinary tract infection) N39.0
--- NOTE | 2024-03-19 13:13 | Discharge Summary ---
Date of Service March 19, 2024 Admission HPI Per Admitting Provider Zan Snell is a 29y/o F with PMHx significant for hyperparathyroidism, left- sided ovarian cyst, GERD with esophagitis, IBS with both constipation and diarrhea, nonalcoholic fatty liver disease, iron deficiency anemia, depression, morbid obesity s/p gastric bypass, dysmenorrhea, complicated UTIs and recurrent kidney stones who presented to the ED for evaluation of left flank pain with associated fevers and nausea/vomiting. History obtained from the patient and associated chart review. Patient recently had bilateral uteroscopy with laser lithotripsy and stone basket extraction back in December 2023. She had extensive stone disease bilaterally with the larger stones on the right and obstructing stone on the left. Patient has been dealing with severe obstructive issues and recurrent UTIs with multidrug resistant infections. She has had episodes of VRE and Klebsiella growing in her urine in addition to ESBL E. coli. Patient follows with Urology at [facility]. Patient started to feel some fatigue about a week ago and has been dealing with left-sided flank pain for the past few days that has gotten progressively worse. Reports the pain is sharp and radiates down into her left groin region. She started experiencing some fevers and chills in addition to nausea/vomiting over the past few days. She has also noted some blood in her urine. Patient reports that her fever reached as high as 100.6F even after taking Tylenol. Her appetite has been significantly decreased over the past few days. Patient reports that she has had to have a PICC line placed in the past for IV antib iotics due to a complicated UTI. Denies any chest pain or SOB. Notes that her urine is foul-smelling. She gave to her second child back in December. Patient is not breast-feeding. Admission Exam Per Admitting Provider General Appearance:Moderately built and nourished, no apparent distress Head: normocephalic, Atraumatic Eyes: normal inspection, EOMI Neck: supple, Trachea midline Respiratory/Chest: Normal breath sounds, CTA, No accessory muscle use Cardiovascular: S1, S2, No murmur Abdomen/GI:Soft, L flank tender, Bowel sounds present Extremities/Musculoskeletal:normal inspection, no edema Neurologic/Psych:AAOX3, grossly no focal neurological deficits Skin: normal color, warm Principal Diagnosis Complicated UTI, renal stones Discharge Exam General Appearance:Moderately built and nourished, no apparent distress Head: normocephalic, Atraumatic Eyes: normal inspection, EOMI Neck: supple Respiratory/Chest: Normal breath sounds, CTA, No accessory muscle use Cardiovascular: S1, S2, No murmur Abdomen/GI:Soft, L flank tender (improved), Bowel sounds present Extremities/Musculoskeletal:normal inspection, no edema Neurologic/Psych:AAOX3, grossly no focal neurological deficits Skin: warm, dry Discharge Data Allergies Allergy/AdvReac Type Severity Reaction Status Date / Time sulfamethoxazole Allergy Intermediate HIVES Verified 03/17/24 09:50 trimethoprim Allergy Intermediate HIVES Verified 03/17/24 09:50 Consultations 03/17/24 12:44 ED Decision to Admit Stat 03/17/24 13:12 Consult Urology Routine Ordered Studies 03/17/24 09:29 US Renal Bladder [US renal/blad retro comp] Stat FINDINGS: Right kidney: 10.8 x 4.3 x 5.1 cm.No hydronephrosis. There is a cyst of the superior pole measuring 1.2 x 1.2 x 1.1 cm, not imaged on prior. Normal corticomedullary differentiation and cortical thickness. Left kidney: 10.3 x 5.7 x 4.9 cm. No hydronephrosis. Nonobstructing calculi measure up to 5 mm. Normal corticomedullary differentiation and cortical thickness. Bladder: Partial distention with mild wall thickening. The bilateral ureteral jets were identified. IMPRESSION: 1. No hydronephrosis. 2. Left renal calculus. 3. Decompressed urinary bladder. 03/18/24 16:22 CT abd pelvis wo con Routine FINDINGS: Lung bases: The heart is normal in size and without pericardial effusion. The lung bases are clear. Liver: The unenhanced liver is normal in size, contour, and attenuation. There is no intrahepatic biliary ductal dilatation. Gallbladder: Surgically absent note clips in the gallbladder fossa. Spleen: Normal in size and attenuation. Pancreas: Unremarkable. Adrenal glands: Unremarkable. Kidneys: The unenhanced kidneys are normal in size and without hydronephrosis. There are at least 5 punctate nonobstructing left renal calculi. The 2 other nonobstructing calculus in the right upper pole. No ureteral stone is identified. There is no evidence of contour deforming renal mass lesion. Abdominal vasculature: The abdominal aorta is normal in course and caliber. Bowel: Postsurgical change is consistent with a history of Otilia-en-Y gastric bypass surgery. There is moderate colonic fecal retention. No bowel obstruction is seen. The appendix is surgically absent. Peritoneum: There is no intraperitoneal free air or abdominal ascites. There is a fat-containing umbilical hernia. A fat-containing supraumbilical hernia is seen on image #154. Lymphadenopathy: None. Pelvic viscera: The bladder, uterus, and adnexa are normal as visualized. There are bilateral ovarian follicles. Skeletal structures: No lytic or blastic lesions are seen. IMPRESSION: 1. No acute infectious or inflammatory findings are identified in the abdomen or pelvis. 2. Bilateral nephrolithiasis. 3. There is postsurgical change from a Otilia-en-Y gastric bypass procedure. No bowel obstruction is seen. 4. Additional findings as above. Hospital Course (1) Complicated UTI (urinary tract infection): Juan Luis Snell is a 29y/o F with PMHx significant for hyperparathyroidism, left- sided ovarian cyst, GERD with esophagitis, IBS with both constipation and diarrhea, nonalcoholic fatty liver disease, iron deficiency anemia, depression, morbid obesity s/p gastric bypass, dysmenorrhea, complicated UTIs and recurrent kidney stones who presented to the ED for evaluation of left flank pain with associated fevers and nausea/vomiting. Patient recently had bilateral uteroscopy with laser lithotripsy and stone basket extraction back in December 2023. She had extensive stone disease bilaterally with the larger stones on the right and obstructing stone on the left. Patient has been dealing with severe obstructive issues and recurrent UTIs with mult idrug resistant infections. She has had episodes of VRE and Klebsiella growing in her urine in addition to ESBL E. coli. Patient reports that she has had to have a PICC line placed in the past for IV antibiotics due to a complicated UTI. Complicated UTI: No leukocytosis, labs rather unremarkable. UA suggestive of infection. Bilateral renal ultrasound with no hydronephrosis, did note a nonobstructing left renal calculus measuring up to 5mm. Started on 1g IV ertapenem in the ED. Urology consulted Pt had more pain and hematuria yesterday , CT AP was obtained - 1. No hydronephrosis. 2. Left renal calculus. 3. Decompressed urinary bladder. This AM (03/19/24) Pt passed small calculus - sent to lab She is feeling better and would like to go home (has small children at home). Discussed w/ urology this AM Urine cultx positive for E.coli - plan to DC on ciprofloxacin Other Chronic Medical Conditions: Depression, GERD --> Can continue home medications for these specific conditions. Total Time Total Time Spent Total Time Spent (In Minutes): 40 Discharge Plan Discharge Items Patient Disposition: Home - Self-Care Reason For Visit: COMPLICATED UTI Discharge Diagnosis: Complicated UTI, renal stones Condition on Discharge: Good Activity: Per Instructions section Non-emergency contact: Primary Care Provider and Urologist Call non-emergency contact if: you have any medication questions and your symptoms worsen Follow-up/Referrals: Dimas Doty, [Primary Care Provider] - Diet: Regular Addtl Attending Provider Instructions: Follow up with your primary care doctor and urologist. Finish antibiotic treatment as prescribed. Pending Studies at Discharge: Yes Studies:: renal stone composition Stand-Alone Forms: [employer], Smoking Cessation Medications and DC Order Prescriptions: New ciprofloxacin HCl 500 mg tablet 500 mg PO BID 5 Days Qty: 10 0RF Continued norelgestromin-ethin.estradiol [Xulane] 150-35 mcg/24 hr patch weekly 1 patch transdermal Q7D Qty: 3 2RF Rx Instructions: apply once weekly for 3 weeks of a 4-week cycle sertraline 100 mg tablet 100 mg PO DAILY buspirone 10 mg tablet 10 mg PO HS cholecalciferol (vitamin D3) 125 mcg (5,000 unit) capsule 125 mcg PO DAILY ondansetron HCl 4 mg tablet 4 mg PO DIRECTED PRN (Reason: Nausea And Vomiting) omeprazole 20 mg capsule,delayed release(DR/EC) 20 mg PO DAILY oxycodone 5 mg capsule 5 mg PO Q8H PRN (Reason: pain) Qty: 10 0RF cyanocobalamin (vitamin B-12) 1,000 mcg/mL Solution 1,000 mcg IM USEASDIRECTD Rx Instructions: [id number] 28-800 mg-mcg Tablet 1 tab PO DAILY Discharge Orders: Discharge Order (Routine); Ordered 03/19/24 Ordered By: Atul Padilla Admission Data Admit Date/Time: 03/18/24 12:26 Attending Provider: Atul Padilla Admit Provider: Atul Padilla Primary Care Provider: Dimas Doty Other Providers: Lenard Mack; Carl Momin
[2024-03-19] MEDS: PHENAZOPYRIDINE HCL 200 MG TAB PO STA (15:01)
== END 2024-03-19 15:13 | disposition home or self-care (01) | DRG 690 ==
LOC: EDINP 09:20 → ED 09:20 → SUATTDRO 13:12 → 3N 16:17 → SUATTDRO 03-18 12:26

== ENCOUNTER 2024-05-10 16:46 | Inpatient (IN) ==
--- NOTE | 2024-05-10 16:50 | ED Triage Note ---
Date of Service May 10, 2024 Provider in Triage Author: Sam Diallo History of Present Illness This patient was briefly evaluated while in triage. An abbreviated physical exam was performed. This patient is a 29-year-old Female who presents to the ED for evaluation continued left flank pain, here 2 days ago has passed 2 stones since fevers "I think my urine culture is positive" urine grew Gardnerella Physical Exam GENERAL: NAD CARDIOVASCULAR: RRR RESPIRATORY: CTA ABDOMEN: BS x 4. Nontender to palpation. Initial orders for labs and / or imaging were placed and patient was placed in the waiting area until a bed is available. Please see further documentation for the full ED course. MDM / Impression Impression Impression: Pyelonephritis
[2024-05-10] MEDS: KETOROLAC TROMETHAMINE 15 MG/ML VIAL IV STA (17:22)
[2024-05-10 17:49] LABS: Basophils # (auto) 0.14 K/uL (0.00-0.20); Eosinophils # (auto) 0.07 K/uL (0.00-0.50); Eosinophils % (auto) 0.5 %; Hematocrit (blood only) 38.1 % (37.0-47.0); Hemoglobin 12.6 g/dl (12.0-16.0); Immature Granulocytes % (auto) 0.7 %; Lymphocytes # (auto) 4.67 K/uL (1.20-3.40); Lymphocytes % (auto) 34.6 %; Mean Corpuscular Hemoglobin 29.4 pg (25.0-34.0); Mean Corpuscular Hgb Conc 33.1 g/dL (32.0-36.0); Mean Corpuscular Volume 88.8 fL (80.0-100.0); Mean Platelet Volume 9.4 fL (9.4-12.4); Monocytes # (auto) 0.91 K/uL (0.11-0.59); Monocytes % (auto) 6.8 %; Neutrophils # (auto) 7.59 K/uL (1.40-6.50); Neutrophils % (auto) 56.4 %; Platelet Count 435 K/uL (130-400); RDW Coefficient of Variation 13.6 % (11.5-14.5); RDW Standard Deviation 44.2 fL (36.4-46.3); Red Blood Count 4.29 M/uL (4.20-5.40); White Blood Count 13.48 K/ul (4.8-10.8)
[2024-05-10 18:01] LABS: Albumin Globulin Ratio 1.6 (0.9-2); Albumin Level 4.6 gm/dl (3.4-5.0); BUN Creatinine Ratio 19.5 (10-20); Bilirubin,Total 0.3 mg/dl (0.2-1.0); Calcium 9.3 mg/dl (8.6-10.3); Creatinine Clr Calc Pharmacy 119.6 ml/min; Globulin 2.9 gm/dl (2.5-4.0); Potassium 3.5 mmol/L (3.5-5.1); Total Protein 7.5 gm/dl (6.0-8.3)
[2024-05-10 19:28] LABS: Appearance Urine Clear (Clear); Bacteria Urine Automated 4+ (None Seen); Bilirubin Urine Negative (Negative); Blood Urine Trace (Negative); Calcium Oxalate Crystals Urine Present (None Prsent); Cast Urine Automated 0-2 /lpf (0-2); Color Urine Dark Yellow; Glucose Urine UA Negative (Negative); Ketones Urine Negative (Negative); Leukocyte Esterase Urine 1+ (Negative); Nitrite Urine Positive (Negative); Protein Urine Negative (Negative); Specific Gravity Urine 1.018 (1.000-1.030); Urobilinogen Urine Negative (Negative)
--- NOTE | 2024-05-10 19:45 | Emergency Department Note ---
Impression & Plan Pyelonephritis ED Provider Note Provider: Sam Diallo MD CHIEF COMPLAINT: Flank pain, UTI, kidney stone issues HISTORY OF PRESENT ILLNESS: Patient is a 29-year-old female history of complicated UTIs, pyelonephritis, kidney stones presenting here today for reevaluation. Seen here [address] imaging without findings of active kidney stones or conclusive evidence of UTI. Urine culture was sent. Patient's urine culture did grow Gardnerella. Patient states however she has had continued left flank pain and think she is might of passed a kidney stone or 2 in her urine. Did bring small amount of it within the container here. Took some Tylenol for fever earlier. Has extensive history of prior PICC line and resistant infections in the past. Was hospitalized here in March for UTI. Patient denies significant nausea or vomiting. No chest pain or shortness of breath reported or cough or cold symptoms. Has had some nausea. PAST MEDICAL HISTORY: As noted above MEDICATIONS: Reviewed home medications SOCIAL HISTORY: lives at home with 2 kids including a 4-month-old. Not breast-feeding PHYSICAL EXAM: GENERAL: alert and oriented in no acute distress on stretcher Head: normocephalic and atraumatic EYES: No injection, discharge or icterus. NECK: Trachea midline. ENT: Mucous membranes pink and moist. LUNGS: Airway patent. No retractions. Breath sounds clear HEART: Regular rate and rhythm. No chest wall tenderness ABDOMEN: Soft and non-tender, without guarding or rebound. Significant left CVA tenderness SKIN: Acyanotic, warm, dry, without rashes EXTREMITIES: Without swelling, tenderness or deformity NEUROLOGICAL: No focal deficits. No aphasia. No facial droop or slurred speech. Ambulatory. Patient's laboratory studies and imaging reviewed. Differential includes Renal colic, UTI, appendicitis, diverticulitis, mesenteric ischemia, aortic pathology, infections, inflammatory bowel disease, PUD, biliary pathology, as well as other pathologies. IMPRESSION/MEDICAL DECISION MAKING: From triage initial blood work KUB and ultrasound was ordered. Blood work does show a mild leukocytosis of 13 but no anemia. No significant renal dysfunction or electrolyte abnormality noted. No findings concerning for hepatitis. UA tonight with nitrates as well as bacteria present. Culture from 2 days ago reviewed with Gardnerella likely contaminant and is not normally pathologic. Given that she is not been treated now has changed UA this is more concerning with leukocytosis for possible infection. KUB ultrasound obtained today without findings of hydronephrosis or obstructive symptoms. Patient does not appear grossly septic. Given her history however of resistant UTIs with ESBL although her last E. coli was sensitive in March, given one-time dose of ertapenem. Discussed with her staying for further symptom treatment. Do not believe we need emergent repeat CT at this time. Doubt any cardiac etiology or pancreatitis or hepatitis again. Doubt this represents ovarian pathology. Significantly tender in the left flank and with the urine history question of she may developing early pyelonephritis. Again mild leukocytosis today and reports fever earlier. Given a dose of ertapenem again and in discussion with her given her history and in shared decision making we will observe the patient to ensure clinical improvement. Urine culture to be pending. Will send the small fragment of urine stone she collected for stone analysis although it is unclear if this truly a stone. No believe she has an active obstructing kidney stone today that requires urgent intervention. She is well-appearing and I doubt sepsis at this point. DIAGNOSIS: Left pyelonephritis with history of ESBL UTI DISPOSITION: Hospitalist will evaluate Patient was agreeable with this plan. 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 resistant enterococcus) culture positive Class 3 obesity Hypokalemia (Acute) Acute flank pain (Acute) UTI (urinary tract infection) (Acute) Pyelonephritis (Acute) History of renal calculi (Acute) Acute left flank pain (Acute) Hyperparathyroidism (Acute) First trimester (Acute) 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 History of colonoscopy History of appendectomy 03/16/19: Grade 2 view, Veloz 2, ETT 7.5 atraumatic x 1. History of wisdom tooth extraction PONV (postoperative nausea and vomiting) Status post laparoscopic procedure REMOVED uterine surface endometriotic tissue Previous section 02/20/2017 Family History Uncle Diabetes Mother Kidney stones Breast cancer Hx of cholecystectomy Hypertension Father Hx of cholecystectomy Other No family history of adverse response to anesthesia Denies family history of Ovarian cancer Prostate cancer Colorectal cancer Social History Smoking Status: Never smoker Second Hand Exposure: No; Do You Dip or Chew Tobacco: No; Tobacco Cessation Education Requested by Patient: No Hx Alcohol Use: No Hx Substance Use: No Preferred Language: Icelandic Communication Ability: Effective 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: No Beliefs That Will Affect Care: None marital status: marital status details: Umberto gillespie ( [phone] Current Living Situation: Significant Other Current Living Situation Comment: FOB and 7 year old son current occupational status: employed 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 Other Information That Helps Us Care for You: No Feels Safe at Home: Yes Assistive Devices: Glasses Allergies Allergies Allergy/AdvReac Type Severity Reaction Status Date / Time sulfamethoxazole Allergy Intermediate HIVES Verified 05/08/24 18:38 trimethoprim Allergy Intermediate HIVES Verified 05/08/24 18:38 Home Meds Home Medications Medication Instructions Recorded Confirmed buspirone 10 mg tablet 10 mg PO HS 03/09/23 05/10/24 sertraline 100 mg tablet 100 mg PO DAILY 03/09/23 05/10/24 omeprazole 20 mg capsule,delayed 20 mg PO DAILY 12/24/23 05/10/24 release albuterol sulfate 90 mcg/actuation 1 puff inhalation Q6H PRN 05/08/24 05/10/24 aerosol inhaler (Ventolin HFA) SOB/Wheezing gabapentin 300 mg capsule 600 mg PO HS 05/08/24 05/10/24 prednisone 10 mg tablet See Rx Instructions .Route .COMPLEX 05/08/24 05/10/24 rizatriptan 5 mg tablet 5 mg PO DAILY PRN Migraine Headache 05/08/24 05/10/24 Previous Rx's Medication Instructions Recorded norelgestromin 150 mcg-e.estradiol 1 patch transdermal Q7D #3 ea 02/29/24 35 mcg/24 hr weekly transderm patch (Xulane) ondansetron 4 mg disintegrating 4 mg PO Q8H PRN nausea and 05/08/24 tablet vomiting #30 tabs Results & Data (ED) Vital Signs Vital Signs - 24 hr 05/10/24 16:48 05/10/24 19:34 Temperature 36.6 C Temperature Source Oral Pulse Rate 106 H Pulse Rate [Apical] 74 Pulse Rhythm [Apical] Regular Pulse Strength [Apical] Normal Respiratory Rate 20 19 Respiratory Effort / Characteristics Non-Labored Spontaneous Respiratory Depth Normal Respiratory Pattern Regular Blood Pressure 155/92 H Blood Pressure [Right Arm] 135/87 Blood Pressure Mean 113 Blood Pressure Mean [Right Arm] 103 Blood Pressure Position [Right Arm] Sitting Pulse Oximetry 100 100 Oxygen Delivery Method Room Air Room Air Sepsis Recent Fever Within 48 Hours No Sepsis New/Unexplained Change in Mental Status N/A Sepsis Action Taken by Nursing No Action Required Laboratory Data 05/10/24 17:24 05/10/24 17:24 Lab Results 05/10/24 05/10/24 05/10/24 Range/Units 17:24 19:05 20:33 WBC 13.48 H (4.8-10.8) K/ul RBC 4.29 (4.20-5.40) M/uL Hgb 12.6 (12.0-16.0) g/dl Hct 38.1 (37.0-47.0) % MCV 88.8 (80.0-100.0) fL MCH 29.4 (25.0-34.0) pg MCHC 33.1 (32.0-36.0) g/dL RDW Std Deviation 44.2 (36.4-46.3) fL RDW Coeff of [place] 13.6 (11.5-14.5) % Plt Count 435 H (130-400) K/uL MPV 9.4 (9.4-12.4) fL Immature Gran % (Auto) 0.7 % Neut % (Auto) 56.4 % Lymph % (Auto) 34.6 % [place] % (Auto) 6.8 % Eos % (Auto) 0.5 % Baso % (Auto) 1.0 % Neut # (Auto) 7.59 H (1.40-6.50) K/uL Lymph # (Auto) 4.67 H (1.20-3.40) K/uL [place] # (Auto) 0.91 H (0.11-0.59) K/uL Eos # (Auto) 0.07 (0.00-0.50) K/uL Baso # (Auto) 0.14 (0.00-0.20) K/uL Immature Gran # (Auto) 0.10 (0.01-0.20) K/uL Sodium 142 (136-145) mmol/L Potassium 3.5 (3.5-5.1) mmol/L Chloride 107 (98-107) mmol/L Carbon Dioxide 26 (21-32) mmol/L Anion Gap 9 (3-11) BUN 15 (6-23) mg/dl Creatinine 0.77 (0.6-1.2) mg/dl Est Cr Clr Drug Dosing 119.6 ml/min eGFR 105.70 BUN/Creatinine Ratio 19.5 (10-20) Glucose 76 (70-99(Fasting)) mg/dl Lactate 0.8 (0.4-2.0) mmol/L Calcium 9.3 (8.6-10.3) mg/dl Magnesium 2.0 (1.7-2.4) mg/dl Total Bilirubin 0.3 (0.2-1.0) mg/dl AST 13 (13-39) U/L ALT 12 (7-52) U/L Alkaline Phosphatase 62 (34-104) U/L Total Protein 7.5 (6.0-8.3) gm/dl Albumin 4.6 (3.4-5.0) gm/dl Globulin 2.9 (2.5-4.0) gm/dl Albumin/Globulin Ratio 1.6 (0.9-2) Urine Color Dark Yellow Urine Appearance Clear (Clear) Urine pH 6.0 (4.5-7.5) Ur Specific [place] 1.018 (1.000-1.030) Urine Protein Negative (Negative) Urine Glucose (UA) Negative (Negative) Urine Ketones Negative (Negative) Urine Blood Trace H (Negative) Urine Nitrite Positive A (Negative) Urine Bilirubin Negative (Negative) Urine Urobilinogen Negative (Negative) Ur Leukocyte Esterase 1+ H (Negative) Urine WBC (Auto) 6-10 H (0-5) /hpf Urine RBC (Auto) 6-10 H (0-2) /hpf U Hyaline Cast (Auto) 0-2 (0-2) /lpf U Epithel Cells (Auto) 3-5 H (0-2) /hpf Urine Bacteria (Auto) 4+ H (None Seen) Calcium Oxalate Crystal Present A (None Prsent) Urine Test Negative (Negative) Administered Medications Buspirone HCl (Buspirone 5 Mg Tab) 10 mg PO [facility] Stop: 06/09/24 21:59 Last Admin: 05/10/24 22:52 Dose: 10 mg Documented By: HRB Potassium Chloride/Sodium Chloride (1/2 Nss + 20meq Kcl 1000ml) 20 meq in 1,000 mls @ 100 mls/hr IV .Q10H ONE Stop: 05/11/24 06:29 Last Admin: 05/10/24 21:02 Dose: 100 mls/hr Documented By: REY Oxycodone HCl (Oxycodone Hcl Ir 5 Mg Tab (Immediate Release)) 5 - 10 mg PO QID PRN PRN Reason: Pain Stop: 05/24/24 21:00 Last Admin: 05/10/24 22:53 Dose: 5 mg Documented By: HRB Sertraline HCl (Sertraline Hcl 100 Mg Tablet) 100 mg PO [facility] Stop: 06/09/24 21:59 Last Admin: 05/10/24 22:52 Dose: 100 mg Documented By: HREulalio Discontinued Medications Ertapenem (Invanz 1000mg) 1,000 mg in 10 mls @ 2 mls/min IV NOW STA Stop: 05/10/24 20:03 Last Admin: 05/10/24 21:02 Dose: 2 mls/min Documented By: REY Sodium Chloride (Nss) 1,000 mls @ 999 mls/hr IV .Q1H1M ONE Stop: 05/10/24 20:59 Last Admin: 05/10/24 20:24 Dose: Not Given Documented By: REY Potassium Chloride 20 meq/ (Lactated Ringer's) 1,010 mls @ 100 mls/hr IV .Q10H6M ONE Stop: 05/11/24 06:16 Last Admin: 05/10/24 20:25 Dose: Not Given Documented By: REY Ketorolac Tromethamine (Ketorolac Tromethamine 15 Mg/Ml Vial) 15 mg IV ONE STA Stop: 05/10/24 16:52 Last Admin: 05/10/24 17:22 Dose: 15 mg Documented By: MONTRELLK Ketorolac Tromethamine (Ketorolac Tromethamine 15 Mg/Ml Vial) 15 mg IV NOW ONE Stop: 05/10/24 21:02 Last Admin: 05/10/24 21:40 Dose: 15 mg Documented By: FABIO Imaging Data Radiologist's Impression: KUB X-Ray 05/10/24 16:51 Exam(s): XR KUB EXAM: XR Abdomen, 1 View CLINICAL HISTORY: Reason for exam: left flank pain. TECHNIQUE: Frontal supine view of the abdomen/pelvis. COMPARISON: May 08, 2024 FINDINGS: Gastrointestinal tract: 9 cm of stool in the rectum consistent with constipation. No dilation. Organs: Previous cholecystectomy. Bones/joints: Skeletal structures are unremarkable. No acute fracture. IMPRESSION: 9 cm of stool in the rectum consistent with constipation. This is new since previous. The previously seen stool in the right side of the transverse colon is no longer present. No dilated bowel loops are identified. Electronically signed by: Sam Serrano MD 05/10/24 21:57 PM Renal Ultrasound 05/10/24 16:51 EXAM: US renal/blad retro comp CLINICAL HISTORY: Left flank pain. Hx kidney stones and infections. RK 11.9 x 4.1 x 4.2 cm. Medial pelvic stone 1.2 cm. No hydro. Small UP cyst 1.1 cm LK 10.5 x 5.7 x 3.8 cm. Small stones, largest seen 0.4 cm No hydro Bladder appears normal. Jets seen. TECHNIQUE: A renal ultrasound was performed using grayscale imaging. COMPARISON: 11/03/2023 FINDINGS: Right Kidney: The right kidney measures 11.9 x 4.1 x 4.2 cm. It shows an echogenic focus at the upper/mid pole measures 1.2 cm, previously measuring 0.7 cm. Previously seen 0.9 cm lower pole calculus is not seen in the current examination. Interval stable a small simple cortical cyst is seen in the upper pole and measures 1.1 x 0.9 x 0.8 cm, No hydronephrosis or masses were identified. Renal parenchymal echogenicity is normal. Cortical thickness: Within normal. Left Kidney: The left kidney measures 10.5 x 5.7 x 3.8 cm. Re-demonstration of a few tiny echogenic foci, which could be small non-obstructing calculi, the largest one measuring 0.4 cm, previously measured 0.8 cm. No cysts, hydronephrosis, or masses were identified. Renal parenchymal echogenicity is normal. Cortical thickness: Within normal. Urinary bladder: The urinary bladder is partially distended with no evidence of calculus noted in it. Bilateral ureteral jets are seen. IMPRESSION: 1. Suspected1.2 cm non-obstructing right renal calculus at the upper/mid pole, previously measured 0.7 cm, Previously seen 0.9 cm right lower pole calculus is not seen in the current examination. 2. Few left renal non-obstructing calculi, the largest one measuring 0.4 cm, previously the largest one measuring 0.8 cm. 3. A small simple right renal cortical cyst (interval stable). [facility] ER was called at [phone] at 07:37 PM EST, 05/10/[address] Diallo was informed regarding the presence of Important Medical Findings on the report. Electronically signed by Minnie Brice 05-10-2024 7:44 PM Discharge Plan Visit Data Chief Complaint: Flank Pain Stated Complaint: KIDNEY INFECTION, FLANK PAIN, ED Provider: Sam Diallo Discharge Problem: Pyelonephritis Patient Disposition: Being Evaluated by Hospitalist Discharge Instructions Interventions: ED Discharge Assessment Last Done: 05/10/24 21:09
[2024-05-10] MEDS: SODIUM CHLORIDE 0.9% 1,000 ML IV ONE (20:24)
[2024-05-10] MEDS: POTASSIUM CHLORIDE 20 MEQ in LACTATED RINGER'S 1,000 ML IV ONE (20:25)
--- NOTE | 2024-05-10 20:39 | History & Physical Report ---
Date of Service May 10, 2024 Assessment & Plan (1) Sepsis: Plan: Secondary to complicated UTI Recurrent UTIs, urolithiasis History ESBL E. coli UTI VRE as per records history gastric bypass GERD, stable on regimen hyperparathyroidism as per records, secondary as per outpatient [facility] Endocrinology notes Chronic anemia, hemoglobin better than baseline likely secondary to mild hemoconcentration Medical CS, Ertapenem ID consult contingent on CS results DVT prophylaxis. SCDs Re: Hematuria Full code Text document was generated using Dig[employer] voice recognition software. It may contain grammatical or spelling errors. Kindly contact undersigned for clarification of any documentation item in question. Addendum : (05/10, 1150 AM) Patient c/o itchy rash on B/L arms and chest as per RN upon arrival at the floor. May have had reaction to ertapenem in the past as per patient. Ertapenem hypersensitivity Benadryl 1 dose now Add ertapenem to allergy list Zosyn in place of ertapenem (of note, patient has grown Zosyn resistant Kle bsiella on review of pathogen history) History of Present Illness Chief Complaint: Flank pain, hematuria Primary Care Provider: Dimas Doty DO History obtained from patient and records. Medical history significant for gestational hypertension, history gastric bypass, GERD, urolithiasis, recurrent UTIs, history ESBL E. coli UTI, VRE as per records, hyperparathyroidism as per records, chronic anemia (baseline hemoglobin of 11), mood disorder. Last [facility] confinement March 2024 for complicated UTI secondary to kidney stones. Urine cultures grew E. coli. Patient discharged on Cipro course. Multiple [facility] ER visits last month for intermittent flank pain, hematuria complaints at home. Mild hydronephrosis on outpatient imaging. UA without clear infection as per patient. Symptoms attributed to spine issues as per patient. Patient seen at PCPs office last week for cough, congestion symptoms. Patient prescribed outpatient antibiotic and steroid taper. Symptoms improved. Recent [facility] ER visit 2 days ago for persistent symptoms. CT abdomen pelvis showed 1. Persistence of multiple small left intrarenal calculi. No right renal calculi. 2. No evidence of hydronephrosis or active ureteral calculus seen on either side. 3. Gas within the lumen of urinary bladder which may indicate gas-forming infection or less likely vesicoenteric fistula. UA later grew Gardnerella vaginalis. Antibiotics not recommended by hospital pharmacist. Patient return to ER for worsening symptoms. Think she may have passed kidney stones at home. Denies headache, chest pain, SOB. IV Ertapenem administered at the ER. 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 Allergies Allergy/AdvReac Type Severity Reaction Status Date / Time sulfamethoxazole Allergy Intermediate HIVES Verified 05/08/24 18:38 trimethoprim Allergy Intermediate HIVES Verified 05/08/24 18:38 ertapenem Allergy Mild Rash Verified 05/10/24 23:11 Home Medications Medication Instructions Recorded Confirmed Type buspirone 10 mg tablet 10 mg PO HS 03/09/23 05/10/24 History sertraline 100 mg tablet 100 mg PO DAILY 03/09/23 05/10/24 History omeprazole 20 mg capsule,delayed 20 mg PO DAILY 12/24/23 05/10/24 History release norelgestromin 150 mcg-e.estradiol 1 patch transdermal Q7D #3 ea 02/29/24 05/10/24 Rx 35 mcg/24 hr weekly transderm patch (Xulane) albuterol sulfate 90 mcg/actuation 1 puff inhalation Q6H PRN 05/08/24 05/10/24 History aerosol inhaler (Ventolin HFA) SOB/Wheezing gabapentin 300 mg capsule 600 mg PO HS 05/08/24 05/10/24 History ondansetron 4 mg disintegrating 4 mg PO Q8H PRN nausea and 05/08/24 05/10/24 Rx tablet vomiting #30 tabs prednisone 10 mg tablet See Rx Instructions .Route .COMPLEX 05/08/24 05/10/24 History rizatriptan 5 mg tablet 5 mg PO DAILY PRN Migraine Headache 05/08/24 05/10/24 History Past Med/Surg History Problem List (Updated 05/11/24 @ 10:28 by Pastor Ching MD) Sepsis Pyelonephritis (Acute) Hematuria (Acute) Flank pain (Acute) Complicated UTI (urinary tract infection) History of obstruction of ureter (Acute) Vomiting (Acute) Pyelonephritis (Acute) Acute left flank pain (Acute) Preeclampsia in period Headache (Acute) Postoperative pain S/P section Ureteral stent present Encounter for assessment Acute right flank pain (Acute) (Acute) 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 VRE (vancomycin resistant enterococcus) culture positive Class 3 obesity Hypokalemia (Acute) Acute flank pain (Acute) UTI (urinary tract infection) (Acute) Pyelonephritis (Acute) History of renal calculi (Acute) Acute left flank pain (Acute) Hyperparathyroidism (Acute) First trimester (Acute) Previous gastric bypass affecting in first trimester, antepartum Encounter for anatomic survey Encounter for supervision of normal in multigravida UTI (urinary tract infection) (Acute) Renal colic on right side (Acute) Nephrolithiasis (Acute) Depression Medical History Ovarian cyst Kidney stones GERD (gastroesophageal reflux disease) Surgical History Hx of cystoscopy w/ stent-04/2022 [facility] History of Otilia-en-Y gastric bypass 10/04/[place] [facility] [place] of cholecystectomy 06/10/19: Grade 1 view, MAC 3, ETT 7.5 atraumatic x 1. History of colonoscopy History of appendectomy 03/16/19: Grade 2 view, Veloz 2, ETT 7.5 atraumatic x 1. History of wisdom tooth extraction PONV (postoperative nausea and vomiting) Status post laparoscopic procedure REMOVED uterine surface endometriotic tissue Previous section 02/20/2017 Family History Uncle Diabetes Mother Kidney stones Breast cancer Hx of cholecystectomy Hypertension Father Hx of cholecystectomy Other No family history of adverse response to anesthesia Denies family history of Ovarian cancer Prostate cancer Colorectal cancer Social History Smoking Status: Never smoker Second Hand Exposure: No; Do You Dip or Chew Tobacco: No; Tobacco Cessation Education Requested by Patient: No Hx Alcohol Use: No Hx Substance Use: No Preferred Language: Belarusian Communication Ability: Effective Day Care Home Provider Required: No Beliefs That Will Affect Care: None marital status: marital status details: Umberto gillespie ( [phone] Current Living Situation: Significant Other Current Living Situation Comment: FOB and 7 year old son current occupational status: employed 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 Other Information That Helps Us Care for You: No Feels Safe at Home: Yes Assistive Devices: Glasses Review of Systems Review of Systems: As per HPI, all other systems reviewed and negative Physical Exam Physical Exam: GENERAL: Comfortable, pleasant, obese, no respiratory distress SKIN: Pallor, warm HEENT: Bespectacled, pale palpebral conjunctivae, no ptosis, dry buccal mucosa NECK : Supple, no tenderness CHEST : CTA, no tenderness HEART : RRR, no obvious murmurs ABDOMEN: Some distention, nontender, minimal left flank tenderness EXTREMITIES : No LE swelling/tenderness, no other conspicuous deformities noted NEUROLOGIC : Coherent, no facial asymmetry, no other gross focality Results & Data Results & Data Vital Signs (Past 12 Hours) Vital Signs Temp Pulse Pulse Resp BP BP Pulse Ox 05/10/24 19:34 74 19 135/87 100 05/10/24 16:48 36.6 C 106 H 20 155/92 H 100 O2 Del Method 05/10/24 19:34 Room Air 05/10/24 16:48 Room Air Laboratory Results Laboratory Results WBC 13.48 K/ul (4.8-10.8) H 05/10/24 17:24 RBC 4.29 M/uL (4.20-5.40) 05/10/24 17:24 Hgb 12.6 g/dl (12.0-16.0) 05/10/24 17:24 Hct 38.1 % (37.0-47.0) 05/10/24 17:24 MCV 88.8 fL (80.0-100.0) 05/10/24 17:24 MCH 29.4 pg (25.0-34.0) 05/10/24 17:24 MCHC 33.1 g/dL (32.0-36.0) 05/10/24 17:24 RDW Std Deviation 44.2 fL (36.4-46.3) 05/10/24 17:24 RDW Coeff of Coral 13.6 % (11.5-14.5) 05/10/24 17:24 Plt Count 435 K/uL (130-400) H 05/10/24 17:24 MPV 9.4 fL (9.4-12.4) 05/10/24 17:24 Immature Gran % (Auto) 0.7 % 05/10/24 17:24 Neut % (Auto) 56.4 % 05/10/24 17:24 Lymph % (Auto) 34.6 % 05/10/24 17:24 [place] % (Auto) 6.8 % 05/10/24 17:24 Eos % (Auto) 0.5 % 05/10/24 17:24 Baso % (Auto) 1.0 % 05/10/24 17:24 Neut # (Auto) 7.59 K/uL (1.40-6.50) H 05/10/24 17:24 Lymph # (Auto) 4.67 K/uL (1.20-3.40) H 05/10/24 17:24 [place] # (Auto) 0.91 K/uL (0.11-0.59) H 05/10/24 17:24 Eos # (Auto) 0.07 K/uL (0.00-0.50) 05/10/24 17:24 Baso # (Auto) 0.14 K/uL (0.00-0.20) 05/10/24 17:24 Immature Gran # (Auto) 0.10 K/uL (0.01-0.20) 05/10/24 17:24 Sodium 142 mmol/L (136-145) 05/10/24 17:24 Potassium 3.5 mmol/L (3.5-5.1) 05/10/24 17:24 Chloride 107 mmol/L (98-107) 05/10/24 17:24 Carbon Dioxide 26 mmol/L (21-32) 05/10/24 17:24 Anion Gap 9 (3-11) 05/10/24 17:24 BUN 15 mg/dl (6-23) 05/10/24 17:24 Creatinine 0.77 mg/dl (0.6-1.2) 05/10/24 17:24 Est Cr Clr Drug Dosing 119.6 ml/min 05/10/24 17:24 eGFR 105.70 05/10/24 17:24 BUN/Creatinine Ratio 19.5 (10-20) 05/10/24 17:24 Glucose 76 mg/dl (70-99(Fasting)) 05/10/24 17:24 Calcium 9.3 mg/dl (8.6-10.3) 05/10/24 17:24 Total Bilirubin 0.3 mg/dl (0.2-1.0) 05/10/24 17:24 AST 13 U/L (13-39) 05/10/24 17:24 ALT 12 U/L (7-52) 05/10/24 17:24 Alkaline Phosphatase 62 U/L (34-104) 05/10/24 17:24 Total Protein 7.5 gm/dl (6.0-8.3) 05/10/24 17:24 Albumin 4.6 gm/dl (3.4-5.0) 05/10/24 17:24 Globulin 2.9 gm/dl (2.5-4.0) 05/10/24 17:24 Albumin/Globulin Ratio 1.6 (0.9-2) 05/10/24 17:24 Urine Color Dark Yellow 05/10/24 19:05 Urine Appearance Clear (Clear) 05/10/24 19:05 Urine pH 6.0 (4.5-7.5) 05/10/24 19:05 Ur Specific [place] 1.018 (1.000-1.030) 05/10/24 19:05 Urine Protein Negative (Negative) 05/10/24 19:05 Urine Glucose (UA) Negative (Negative) 05/10/24 19:05 Urine Ketones Negative (Negative) 05/10/24 19:05 Urine Blood Trace (Negative) H 05/10/24 19:05 Urine Nitrite Positive (Negative) A 05/10/24 19:05 Urine Bilirubin Negative (Negative) 05/10/24 19:05 Urine Urobilinogen Negative (Negative) 05/10/24 19:05 Ur Leukocyte Esterase 1+ (Negative) H 05/10/24 19:05 Urine WBC (Auto) 6-10 /hpf (0-5) H 05/10/24 19:05 Urine RBC (Auto) 6-10 /hpf (0-2) H 05/10/24 19:05 U Hyaline Cast (Auto) 0-2 /lpf (0-2) 05/10/24 19:05 U Epithel Cells (Auto) 3-5 /hpf (0-2) H 05/10/24 19:05 Urine Bacteria (Auto) 4+ (None Seen) H 05/10/24 19:05 Calcium Oxalate Crystal Present (None Prsent) A 05/10/24 19:05 Impressions Renal Ultrasound 05/10/24 16:51 EXAM: US renal/blad retro comp CLINICAL HISTORY: Left flank pain. Hx kidney stones and infections. RK 11.9 x 4.1 x 4.2 cm. Medial pelvic stone 1.2 cm. No hydro. Small UP cyst 1.1 cm LK 10.5 x 5.7 x 3.8 cm. Small stones, largest seen 0.4 cm No hydro Bladder appears normal. Jets seen. TECHNIQUE: A renal ultrasound was performed using grayscale imaging. COMPARISON: 11/03/2023 FINDINGS: Right Kidney: The right kidney measures 11.9 x 4.1 x 4.2 cm. It shows an echogenic focus at the upper/mid pole measures 1.2 cm, previously measuring 0.7 cm. Previously seen 0.9 cm lower pole calculus is not seen in the current examination. Interval stable a small simple cortical cyst is seen in the upper pole and measures 1.1 x 0.9 x 0.8 cm, No hydronephrosis or masses were identified. Renal parenchymal echogenicity is normal. Cortical thickness: Within normal. Left Kidney: The left kidney measures 10.5 x 5.7 x 3.8 cm. Re-demonstration of a few tiny echogenic foci, which could be small non-obstructing calculi, the largest one measuring 0.4 cm, previously measured 0.8 cm. No cysts, hydronephrosis, or masses were identified. Renal parenchymal echogenicity is normal. Cortical thickness: Within normal. Urinary bladder: The urinary bladder is partially distended with no evidence of calculus noted in it. Bilateral ureteral jets are seen. IMPRESSION: 1. Suspected1.2 cm non-obstructing right renal calculus at the upper/mid pole, previously measured 0.7 cm, Previously seen 0.9 cm right lower pole calculus is not seen in the current examination. 2. Few left renal non-obstructing calculi, the largest one measuring 0.4 cm, previously the largest one measuring 0.8 cm. 3. A small simple right renal cortical cyst (interval stable). [facility] ER was called at [phone] at 07:37 PM EST, 05/10/[address] Diallo was informed regarding the presence of Important Medical Findings on the report. Electronically signed by Minnie Brice 05-10-2024 7:44 PM
[2024-05-10 20:49] LABS: Pregnancy Test, Urine Negative (Negative)
[2024-05-10] MEDS ORDERED: PROMETHAZINE 12.5 MG/50.5 ML BAG IV PRN (21:01)
[2024-05-10] MEDS: SODIUM CHLOR 0.45% + 20MEQ KCL 20 MEQ/1,000 ML BAG IV ONE (21:02)
[2024-05-10] MEDS: ERTAPENEM 1000MG 1,000 MG/10 ML SYR IV STA (21:02)
[2024-05-10] MEDS: KETOROLAC TROMETHAMINE 15 MG/ML VIAL IV ONE (21:40)
--- NOTE | 2024-05-10 21:58 | XRay Report ---
Exam(s): XR KUB EXAM: XR Abdomen, 1 View CLINICAL HISTORY: Reason for exam: left flank pain. TECHNIQUE: Frontal supine view of the abdomen/pelvis. COMPARISON: May 08, 2024 FINDINGS: Gastrointestinal tract: 9 cm of stool in the rectum consistent with constipation. No dilation. Organs: Previous cholecystectomy. Bones/joints: Skeletal structures are unremarkable. No acute fracture. IMPRESSION: 9 cm of stool in the rectum consistent with constipation. This is new since previous. The previously seen stool in the right side of the transverse colon is no longer present. No dilated bowel loops are identified. Electronically signed by: Sam Serrano MD 05/10/24 21:57 PM
[2024-05-10] MEDS: busPIRone 5 MG TAB PO SCH (22:52)
[2024-05-10] MEDS: SERTRALINE HCL 100 MG TABLET PO SCH (22:52)
[2024-05-10] MEDS: oxyCODONE HCL IR 5 MG TAB (IMMEDIATE RELEASE) PO PRN (22:53)
[2024-05-10] MEDS: diphenhydrAMINE Capsule 25 MG CAP PO ONE (23:51)
[2024-05-10] MEDS: predniSONE 10 MG TABLET PO ONE (23:52)
[2024-05-11 06:26] LABS: Basophils # (auto) 0.04 K/uL (0.00-0.20); Basophils % (auto) 0.5 %; Eosinophils # (auto) 0.01 K/uL (0.00-0.50); Eosinophils % (auto) 0.1 %; Hematocrit (blood only) 32.7 % (37.0-47.0); Hemoglobin 10.4 g/dl (12.0-16.0); Immature Granulocytes # (auto) 0.07 K/uL (0.01-0.20); Immature Granulocytes % (auto) 0.9 %; Lymphocytes # (auto) 1.17 K/uL (1.20-3.40); Lymphocytes % (auto) 14.8 %; Mean Corpuscular Hemoglobin 28.5 pg (25.0-34.0); Mean Corpuscular Hgb Conc 31.8 g/dL (32.0-36.0); Mean Corpuscular Volume 89.6 fL (80.0-100.0); Mean Platelet Volume 9.5 fL (9.4-12.4); Monocytes % (auto) 2.5 %; Neutrophils # (auto) 6.42 K/uL (1.40-6.50); Neutrophils % (auto) 81.2 %; Platelet Count 303 K/uL (130-400); RDW Coefficient of Variation 13.9 % (11.5-14.5); RDW Standard Deviation 45.6 fL (36.4-46.3); Red Blood Count 3.65 M/uL (4.20-5.40); White Blood Count 7.91 K/ul (4.8-10.8)
[2024-05-11 06:48] LABS: Calcium 8.3 mg/dl (8.6-10.3); Creatinine Clr Calc Pharmacy 150.7 ml/min; Potassium 4.1 mmol/L (3.5-5.1)
--- NOTE | 2024-05-11 08:47 | Hospitalist Progress Note ---
Date of Service May 11, 2024 Assessment & Plan (1) Sepsis: Plan: Secondary to complicated UTI Recurrent UTIs, urolithiasis History ESBL E. coli UTI VRE as per records Follow urine and blood cultx Urine cultx posit. for E. coli Was given Ertapenem on admission in ED - pt developed rash - which is now resolved Ertapenem was discontinued and pt was started on zosyn (of note, patient has grown Zosyn resistant Klebsiella on review of pathogen history) ID consult contingent on CS results Chronic conditions: history gastric bypass GERD, stable on regimen hyperparathyroidism as per records, secondary as per outpatient [facility] Endocrinology notes Chronic anemia, hemoglobin 10.4 this AM, current hematuria secondary to UTI, renal stones DVT prophylaxis. SCDs Re: Hematuria Full code Admission and Anticipated Discharge Date Admission Date: May 10, 2024 Subjective Pt seen in follow up of UTI (hx of recurrent UTIs, hx of kidney stones) Currently sitting up in bed in NAD, reports she continues to have left flank pain and had some hematuria this AM Currently no fevers, chills, chest pain, or shortness of breath Review of Systems Review of Systems: All systems reviewed & are unremarkable except as noted in Subjective Physical Exam Physical Exam: GENERAL: obese young F in NAD HEENT: NC/AT, EOMI NECK : Supple CHEST : CTA, no tenderness HEART : RRR, no obvious murmurs ABDOMEN: Some distention, nontender, + left flank tenderness EXTREMITIES : No LE swelling, moves extremities NEUROLOGIC : awake, alert, oriented, answers appropriately, no facial asymmetry, moves extremities SKIN: warm, dry Results & Data Results & Data Vital Signs (Past 12 Hours) Vital Signs Temp Pulse Pulse Resp BP BP Pulse Ox 05/11/24 07:51 36.4 C L 64 18 124/86 98 05/10/24 22:35 36.6 C 78 18 124/77 96 05/10/24 22:34 36.6 C 78 18 124/77 96 05/10/24 22:06 85 19 131/79 05/10/24 21:01 88 05/10/24 21:00 90 16 137/91 99 O2 Del Method 05/11/24 07:51 Room Air 05/10/24 22:35 Room Air 05/10/24 22:34 Room Air 05/10/24 22:06 05/10/24 21:01 05/10/24 21:00 Room Air Laboratory Results 05/11/24 05/10/24 05/10/24 Range/Units 05:27 Unknown 20:33 WBC 7.91 (4.8-10.8) K/ul RBC 3.65 L (4.20-5.40) M/uL Hgb 10.4 L (12.0-16.0) g/dl Hct 32.7 L (37.0-47.0) % MCV 89.6 (80.0-100.0) fL MCH 28.5 (25.0-34.0) pg MCHC 31.8 L (32.0-36.0) g/dL RDW Std Deviation 45.6 (36.4-46.3) fL RDW Coeff of Coral 13.9 (11.5-14.5) % Plt Count 303 (130-400) K/uL MPV 9.5 (9.4-12.4) fL Immature Gran % (Auto) 0.9 % Neut % (Auto) 81.2 % Lymph % (Auto) 14.8 % [place] % (Auto) 2.5 % Eos % (Auto) 0.1 % Baso % (Auto) 0.5 % Neut # (Auto) 6.42 (1.40-6.50) K/uL Lymph # (Auto) 1.17 L (1.20-3.40) K/uL [place] # (Auto) 0.20 (0.11-0.59) K/uL Eos # (Auto) 0.01 (0.00-0.50) K/uL Baso # (Auto) 0.04 (0.00-0.20) K/uL Immature Gran # (Auto) 0.07 (0.01-0.20) K/uL Sodium 140 (136-145) mmol/L Potassium 4.1 (3.5-5.1) mmol/L Chloride 108 H (98-107) mmol/L Carbon Dioxide 25 (21-32) mmol/L Anion Gap 7 (3-11) BUN 14 (6-23) mg/dl Creatinine 0.61 (0.6-1.2) mg/dl Est Cr Clr Drug Dosing 150.7 ml/min eGFR 122.50 BUN/Creatinine Ratio 23.0 H (10-20) Glucose 110 H (70-99(Fasting)) mg/dl Lactate 0.8 (0.4-2.0) mmol/L Calcium 8.3 L (8.6-10.3) mg/dl Magnesium (1.7-2.4) mg/dl Total Bilirubin (0.2-1.0) mg/dl AST (13-39) U/L ALT (7-52) U/L Alkaline Phosphatase (34-104) U/L Total Protein (6.0-8.3) gm/dl Albumin (3.4-5.0) gm/dl Globulin (2.5-4.0) gm/dl Albumin/Globulin Ratio (0.9-2) Urine Color Urine Appearance (Clear) Urine pH (4.5-7.5) Ur Specific [place] (1.000-1.030) Urine Protein (Negative) Urine Glucose (UA) (Negative) Urine Ketones (Negative) Urine Blood (Negative) Urine Nitrite (Negative) Urine Bilirubin (Negative) Urine Urobilinogen (Negative) Ur Leukocyte Esterase (Negative) Urine WBC (Auto) (0-5) /hpf Urine RBC (Auto) (0-2) /hpf U Hyaline Cast (Auto) (0-2) /lpf U Epithel Cells (Auto) (0-2) /hpf Urine Bacteria (Auto) (None Seen) Calcium Oxalate Crystal (None Prsent) Urine Test (Negative) Stone Source Pending Stone Weight Pending Stone Composition Pending Stone Composition 2 Pending 05/10/24 05/10/24 Range/Units 19:05 17:24 WBC 13.48 H (4.8-10.8) K/ul RBC 4.29 (4.20-5.40) M/uL Hgb 12.6 (12.0-16.0) g/dl Hct 38.1 (37.0-47.0) % MCV 88.8 (80.0-100.0) fL MCH 29.4 (25.0-34.0) pg MCHC 33.1 (32.0-36.0) g/dL RDW Std Deviation 44.2 (36.4-46.3) fL RDW Coeff of Coral 13.6 (11.5-14.5) % Plt Count 435 H (130-400) K/uL MPV 9.4 (9.4-12.4) fL Immature Gran % (Auto) 0.7 % Neut % (Auto) 56.4 % Lymph % (Auto) 34.6 % [place] % (Auto) 6.8 % Eos % (Auto) 0.5 % Baso % (Auto) 1.0 % Neut # (Auto) 7.59 H (1.40-6.50) K/uL Lymph # (Auto) 4.67 H (1.20-3.40) K/uL [place] # (Auto) 0.91 H (0.11-0.59) K/uL Eos # (Auto) 0.07 (0.00-0.50) K/uL Baso # (Auto) 0.14 (0.00-0.20) K/uL Immature Gran # (Auto) 0.10 (0.01-0.20) K/uL Sodium 142 (136-145) mmol/L Potassium 3.5 (3.5-5.1) mmol/L Chloride 107 (98-107) mmol/L Carbon Dioxide 26 (21-32) mmol/L Anion Gap 9 (3-11) BUN 15 (6-23) mg/dl Creatinine 0.77 (0.6-1.2) mg/dl Est Cr Clr Drug Dosing 119.6 ml/min eGFR 105.70 BUN/Creatinine Ratio 19.5 (10-20) Glucose 76 (70-99(Fasting)) mg/dl Lactate (0.4-2.0) mmol/L Calcium 9.3 (8.6-10.3) mg/dl Magnesium 2.0 (1.7-2.4) mg/dl Total Bilirubin 0.3 (0.2-1.0) mg/dl AST 13 (13-39) U/L ALT 12 (7-52) U/L Alkaline Phosphatase 62 (34-104) U/L Total Protein 7.5 (6.0-8.3) gm/dl Albumin 4.6 (3.4-5.0) gm/dl Globulin 2.9 (2.5-4.0) gm/dl Albumin/Globulin Ratio 1.6 (0.9-2) Urine Color Dark Yellow Urine Appearance Clear (Clear) Urine pH 6.0 (4.5-7.5) Ur Specific [place] 1.018 (1.000-1.030) Urine Protein Negative (Negative) Urine Glucose (UA) Negative (Negative) Urine Ketones Negative (Negative) Urine Blood Trace H (Negative) Urine Nitrite Positive A (Negative) Urine Bilirubin Negative (Negative) Urine Urobilinogen Negative (Negative) Ur Leukocyte Esterase 1+ H (Negative) Urine WBC (Auto) 6-10 H (0-5) /hpf Urine RBC (Auto) 6-10 H (0-2) /hpf U Hyaline Cast (Auto) 0-2 (0-2) /lpf U Epithel Cells (Auto) 3-5 H (0-2) /hpf Urine Bacteria (Auto) 4+ H (None Seen) Calcium Oxalate Crystal Present A (None Prsent) Urine Test Negative (Negative) Stone Source Stone Weight Stone Composition Stone Composition 2 Medications Administered Current Inpatient Medications Acetaminophen (Acetaminophen 325 Mg Tab) 650 mg PO QID PRN PRN Reason: pain/fever Stop: 06/09/24 21:00 Buspirone HCl (Buspirone 5 Mg Tab) 10 mg PO [facility] Stop: 06/09/24 21:59 Last Admin: 05/10/24 22:52 Dose: 10 mg Gabapentin (Gabapentin 600 Mg Tab) 600 mg PO [facility] Stop: 06/10/24 20:59 Promethazine HCl (Phenergan) 12.5 mg in 50.5 mls @ 202 mls/hr IV Q6H PRN PRN Reason: Nausea And Vomiting Stop: 06/09/24 21:00 Piperacillin Sod/Tazobactam Sod (Zosyn) 4.5 gm in 100 mls @ 25 mls/hr IV Q8H [facility]; Protocol Stop: 05/21/24 19:59 Lorazepam (Lorazepam 0.5 Mg Tab) 0.5 mg PO TID PRN PRN Reason: Anxiety Stop: 06/09/24 21:53 Oxycodone HCl (Oxycodone Hcl Ir 5 Mg Tab (Immediate Release)) 5 - 10 mg PO QID PRN PRN Reason: Pain Stop: 05/24/24 21:00 Last Admin: 05/11/24 05:32 Dose: 10 mg Pantoprazole Sodium (Pantoprazole 40 Mg Tab) 40 mg PO [facility]; Protocol Stop: 06/10/24 20:59 Prednisone (Prednisone 20 Mg Tab) 20 mg PO ONE ONE Stop: 05/11/24 21:01 Prednisone (Prednisone 10 Mg Tablet) 10 mg PO ONE ONE Stop: 05/12/24 21:01 Sertraline HCl (Sertraline Hcl 100 Mg Tablet) 100 mg PO [facility] Stop: 06/09/24 21:59 Last Admin: 05/10/24 22:52 Dose: 100 mg
[2024-05-11] MEDS: ACETAMINOPHEN 325 MG TAB PO PRN (09:43)
[2024-05-11] MEDS: LORazepam 0.5 MG TAB PO PRN (13:49)
[2024-05-11] MEDS: POLYETHYLENE (MIRALAX) 17 GM PACK PO SCH (16:57)
[2024-05-11] MEDS ORDERED: ERTAPENEM 1000MG 1,000 MG/10 ML SYR IV SCH (20:00)
[2024-05-11] MEDS: PIPERACILLIN/TAZOBACTAM 4.5 GM/100 ML BAG IV SCH (20:35)
[2024-05-11] MEDS: GABAPENTIN 600 MG TAB PO SCH (21:25)
[2024-05-11] MEDS: PANTOprazole 40 MG TAB PO SCH (21:25)
[2024-05-11] MEDS: predniSONE 20 MG TAB PO ONE (21:25)
[2024-05-11 21:41] VITALS: O2SAT 96
[2024-05-12 06:25] LABS: Hematocrit (blood only) 33.3 % (37.0-47.0); Hemoglobin 11.1 g/dl (12.0-16.0); Mean Corpuscular Hemoglobin 29.4 pg (25.0-34.0); Mean Corpuscular Hgb Conc 33.3 g/dL (32.0-36.0); Mean Corpuscular Volume 88.3 fL (80.0-100.0); Mean Platelet Volume 9.5 fL (9.4-12.4); Platelet Count 333 K/uL (130-400); RDW Coefficient of Variation 13.8 % (11.5-14.5); RDW Standard Deviation 44.7 fL (36.4-46.3); Red Blood Count 3.77 M/uL (4.20-5.40); White Blood Count 6.32 K/ul (4.8-10.8)
[2024-05-12 06:42] LABS: BUN Creatinine Ratio 16.9 (10-20); Calcium 8.6 mg/dl (8.6-10.3); Creatinine Clr Calc Pharmacy 155.8 ml/min; Magnesium 2.1 mg/dl (1.7-2.4); Phosphorus 4.3 mg/dl (2.5-4.9); Potassium 4.1 mmol/L (3.5-5.1)
[2024-05-12 07:26] VITALS: BP 118/76; PULSE 77; RESP 15; TEMP 97.3
--- NOTE | 2024-05-12 08:55 | Discharge Summary ---
Date of Service May 12, 2024 Admission HPI Per Admitting Provider History obtained from patient and records. Medical history significant for gestational hypertension, history gastric bypass, GERD, urolithiasis, recurrent UTIs, history ESBL E. coli UTI, VRE as per records, hyperparathyroidism as per records, chronic anemia (baseline hemoglobin of 11), mood disorder. Last [facility] confinement March 2024 for complicated UTI secondary to kidney stones. Urine cultures grew E. coli. Patient discharged on Cipro course. Multiple [facility] ER visits last month for intermittent flank pain, hematuria complaints at home. Mild hydronephrosis on outpatient imaging. UA without clear infection as per patient. Symptoms attributed to spine issues as per patient. Patient seen at PCPs office last week for cough, congestion symptoms. Patient prescribed outpatient antibiotic and steroid taper. Symptoms improved. Recent [facility] ER visit 2 days ago for persistent symptoms. CT abdomen pelvis showed 1. Persistence of multiple small left intrarenal calculi. No right renal calculi. 2. No evidence of hydronephrosis or active ureteral calculus seen on either side. 3. Gas within the lumen of urinary bladder which may indicate gas-forming infection or less likely vesicoenteric fistula. UA later grew Gardnerella vaginalis. Antibiotics not recommended by hospital pharmacist. Patient return to ER for worsening symptoms. Think she may have passed kidney stones at home. Denies headache, chest pain, SOB. IV Ertapenem administered at the ER. 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 Exam Per Admitting Provider GENERAL: Comfortable, pleasant, obese, no respiratory distress SKIN: Pallor, warm HEENT: Bespectacled, pale palpebral conjunctivae, no ptosis, dry buccal mucosa NECK : Supple, no tenderness CHEST : CTA, no tenderness HEART : RRR, no obvious murmurs ABDOMEN: Some distention, nontender, minimal left flank tenderness EXTREMITIES : No LE swelling/tenderness, no other conspicuous deformities noted NEUROLOGIC : Coherent, no facial asymmetry, no other gross focality Principal Diagnosis Sepsis secondary to complicated UTI Discharge Exam GENERAL: obese young F in NAD HEENT: NC/AT, EOMI NECK : Supple CHEST : CTA, no tenderness HEART : RRR, no obvious murmurs ABDOMEN: Some distention, nontender, + left flank tenderness EXTREMITIES : No LE swelling, moves extremities NEUROLOGIC : awake, alert, oriented, answers appropriately, no facial asymmetry, moves extremities SKIN: warm, dry Discharge Data Allergies Allergy/AdvReac Type Severity Reaction Status Date / Time sulfamethoxazole Allergy Intermediate HIVES Verified 05/08/24 18:38 trimethoprim Allergy Intermediate HIVES Verified 05/08/24 18:38 ertapenem Allergy Mild Rash Verified 05/10/24 23:11 Consultations 05/10/24 21:50 ED Decision to Admit Stat Ordered Studies 05/10/24 16:51 US renal/blad retro comp Stat IMPRESSION: 1. Suspected1.2 cm non-obstructing right renal calculus at the upper/mid pole, previously measured 0.7 cm, Previously seen 0.9 cm right lower pole calculus is not seen in the current examination. 2. Few left renal non-obstructing calculi, the largest one measuring 0.4 cm, previously the largest one measuring 0.8 cm. 3. A small simple right renal cortical cyst (interval stable). Hospital Course (1) Flank pain: (2) Sepsis: Secondary to complicated UTI Recurrent UTIs, urolithiasis History ESBL E. coli UTI VRE as per records Blood cultx - NGTD Urine cultx posit. for E. coli - resistant to ampicillin otherwise sensitive -> will DC on Po cipro Was given Ertapenem on admission in ED - pt developed rash - which is now resol yaz Ertapenem was discontinued and pt was started on zosyn (of note, patient has grown Zosyn resistant Klebsiella on review of pathogen history) Currently feels much improved. Hematuria resolved. Afebrile. WBC normalized. Chronic conditions: history gastric bypass GERD, stable on regimen hyperparathyroidism as per records, secondary as per outpatient [facility] notes Chronic anemia, hemoglobin 11.1 this AM - at baseline, current hematuria secondary to UTI , renal stones. Hematuria now resolved. Total Time Total Time Spent Total Time Spent (In Minutes): 40 Discharge Plan Discharge Items Patient Disposition: Home - Self-Care Reason For Visit: SEPSIS Discharge Diagnosis: Sepsis secondary to complicated UTI Activity: Per Instructions section Non-emergency contact: Primary Care Provider, Specialist and Urologist Call non-emergency contact if: you have any medication questions and your sym ptoms worsen Follow-up/Referrals: Dimas Doty, DO [Primary Care Provider] - Diet: Regular Addtl Attending Provider Instructions: Follow up with your primary care doctor within 1 week. Follow up with urology and endocrinology. Finish antibiotic treatment as prescribed. Make sure to stay well hydrated. Pending Studies at Discharge: Yes Studies:: final blood cultx Stand-Alone Forms: My [facility] [employer], Smoking Cessation Medications and DC Order Prescriptions: New ciprofloxacin HCl 500 mg tablet 500 mg PO BID 7 Days Qty: 14 0RF oxycodone 5 mg Tablet 5 mg PO QID PRN (Reason: pain) Qty: 7 0RF Continued norelgestromin-ethin.estradiol [Xulane] 150-35 mcg/24 hr patch weekly 1 patch transdermal Q7D Qty: 3 2RF Rx Instructions: apply once weekly for 3 weeks of a 4-week cycle sertraline 100 mg tablet 100 mg PO DAILY buspirone 10 mg tablet 10 mg PO HS omeprazole 20 mg capsule,delayed release(DR/EC) 20 mg PO DAILY prednisone 10 mg tablet See Rx Instructions .ROUTE .COMPLEX Rx Instructions: Start Date 05/06/24 x10 day supply. Take 50mg by mouth once daily x 2 days; 40mg x 2 days; 30mg x 2 days; 20mg x 2 days then 10mg x 2 days gabapentin 300 mg capsule 600 mg PO HS MDD 900mg/24hr albuterol sulfate [Ventolin HFA] 90 mcg/actuation HFA aerosol inhaler 1 puff INHALATION Q6H PRN (Reason: SOB/Wheezing) rizatriptan 5 mg tablet 5 mg PO DAILY PRN (Reason: Migraine Headache) ondansetron 4 mg tablet,disintegrating 4 mg PO Q8H PRN (Reason: nausea and vomiting) Qty: 30 0RF Discharge Orders: Discharge Order (Routine); Ordered 05/12/24 Ordered By: Atul Boyer/Other Patient Handouts: UTIs Admission Data Admit Date/Time: 05/10/24 20:41 Attending Provider: Atul Padilla Admit Provider: Pastor Ching Primary Care Provider: Dimas Doty Other Providers: Pastor Ching Other Interventions: Discharge Summary Assessment (RN) Last Done: 05/12/24 10:25
[2024-05-12] MEDS: RIZATRIPTAN BENZOATE 10 MG TAB PO ONE (09:18)
[2024-05-12] MEDS ORDERED: predniSONE 10 MG TABLET PO ONE (21:00)
--- OUTSIDE RECORDS SUMMARY | 2024-05-13 04:10 | External Medical Summary | Summary of Care ---
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 The patient does tolerate Phenergan Morphine Hives Low 03/20/2019 Pt feels the rash may have been from tape at the IV site. Sulfamethoxazole Hives High 03/03/2021 Trimethoprim Hives High 05/02/2018 documented as of this encounter (statuses as of 05/10/2024) Medications Acetaminophen 325 MG Oral Capsule Take 325 mg by mouth every 6 hours as needed for Pain, Mild. Active Sertraline HCl 100 MG Oral Tablet (Zoloft)Indication s:Recurrent major depressive disorder, in full remission (HCC) TAKE 1 & 1/2 TABLETS BY MOUTH IN THE MORNING. 30 Tablet 4 Active busPIRone HCl 10 MG Oral Tablet (Buspar) Take 1 Tablet by mouth in the morning. 30 Tablet 4 Active Omeprazole 20 MG Oral Capsule Delayed Release (PriLOSEC)Indicati ons:Gastroesophage al reflux disease with esophagitis and hemorrhage Take 1 Capsule by mouth in the morning. 30 Capsule 4 Active Tamsulosin HCl 0.4 MG Oral Capsule (Flomax) Take 1 Capsule by mouth in the morning. 28 Capsule 4 Active Rizatriptan Benzoate 5 MG Oral Tablet Take 1 Tablet by mouth as needed for Migraine. May repeat in 2 hours if needed 10 Tablet 5 4 Active Gabapentin 300 MG Oral Capsule (Neurontin) Take 1 Capsule by mouth in the morning and 1 Capsule at noon and 1 Capsule before bedtime. 90 Capsule 4 Active Phenazopyridine HCl 100 MG Oral Tablet (Pyridium) Take 1 Tablet by mouth 3 times a day as needed for Pain, Breakthrough. 10 Tablet 1 4 Active Promethazine HCl 25 MG Oral Tablet (Phenergan) Take 1 Tablet by mouth every 6 hours as needed for Nausea for up to 20 doses. 20 Tablet 4 Active Ondansetron 4 MG Oral Tablet Disintegrating (Zofran) Place 1 Tablet on tongue every 8 hours as needed for Nausea. dissolve on tongue. 2 Tablet 4 Active predniSONE 10 MG Oral Tablet (Deltasone)Indicat ions:Pneumonia of left lower lobe due to infectious organism Take 5 tabs for 2 days, 4 tabs for 2 days, 3 tabs for 2 days, 2 tabs for 2 days 1 tab for 2 days 30 Tablet 4 Active Azithromycin 250 MG Oral Tablet (Zithromax)Indicat ions:Pneumonia of left lower lobe due to infectious organism Take 2 tabs by mouth on the first day, then 1 tab daily on days two through five 6 Tablet 4 05/11/20 24 Active Amoxicillin-Pot Clavulanate 875-125 MG Oral Tablet (Augmentin)Indicat ions:Pneumonia of left lower lobe due to infectious organism Take 1 Tablet by mouth in the morning and 1 Tablet before bedtime. Do all this for 10 days. 20 Tablet 4 05/16/20 24 Active ProAir HFA 108 (90 Base) MCG/ACT Inhalation Aerosol SolutionIndication s:Pneumonia of left lower lobe due to infectious organism Inhale 2 Puffs by mouth every 4 hours as needed for Wheezing, Cough or Shortness of Breath. 18 g 1 4 Active guaiFENesin-Codein e 100-10 MG/5ML Oral Solution (Robitussin AC)Indications:Pne umonia of left lower lobe due to infectious organism Take 5 mL by mouth every 4 hours as needed for Cough. 120 mL 4 Active Ondansetron 4 MG Oral Tablet Disintegrating (Zofran) Place 1 Tablet on tongue every 8 hours as needed for Nausea or Vomiting for up to 15 doses. dissolve on tongue. 15 Tablet 4 Active Baclofen 5 MG Oral Tablet (Lioresal) Take 1 Tablet by mouth 3 times a day as needed (Muscle spasms/back pain) for up to 5 days. 15 Tablet 4 05/13/20 24 Active oxyCODONE-Acetamin ophen 5-325 MG Oral Tablet (Percocet) Take 1 Tablet by mouth every 6 hours as needed for Pain, Severe. 40 Tablet 4 Active documented as of this encounter (statuses as of 05/10/2024) Active Problems Problem Noted Date Diagnosed Date [...] Menorrhagia with regular cycle 04/16/2021 [facility] OTHER*[id number] 01/24/2021 Gastroesophageal reflux disease with esophagitis 01/04/2019 Recurrent major depressive disorder, in full rem ission 01/04/2019 Irritable bowel syndrome wit h both constipation and diarrhea 01/04/2019 documented as of this encounter (statuses as of 05/10/2024) Resolved Problems Problem Noted Date Diagnosed Date [...] BMI 40-4 9.9 (morbid obesity) 08/07/2016 10/17/2021 Overview (08/07/2016): RECOMMENDATIONS: Recommend restricting weight gain during to [...] first 08/07/2016 08/31/2017 Uterine anomaly 07/21/2016 02/29/2024 Overview (07/21/2016): Septate vs arcuate uterus noted on u/s [...] as of this encounter (statuses as of 05/10/2024) Immunizations Name Administration Dates Next Due COVID-19 [...] (Fluzone) 04/28/2017,04/30/1999,03/26/1996 TDAP (age 10 and older)(Boostrix) 2016,01/06/2017,03/30/2015,04/25 Varicella [...] No 05/05/2023 Does the household have a [facility] source of income? (Household - for ages [...] no steady place to sleep at night? 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 Answer Date of Assessment Author No 08/25/2023 6:06 PM Guerline Grier RN * Are you blind or do you have serious difficulty seeing, even when wearing glasses? Answer Date of Assessment Author No 08/25/2023 6:06 PM Guerline Grier RN * Do you have serious difficulty walking or climbing stairs? (5 years old or older) Answer Date of Assessment Author No 08/25/2023 6:06 PM Guerline Grier RN * Do you have difficulty dressing or bathing? (5 years old or older) Answer Date of Assessment Author No 08/25/2023 6:06 PM Guerline Grier RN * Because of a physical, mental, or emotional condition, do you have difficulty doing errands alone such as visiting a doctors office or shopping? (15 years old or older) Answer Date of Assessment Author No 08/25/2023 6:06 PM Guerline Grier RN documented as of this encounter Mental Status * Because of a physical, mental, or emotional condition, do you have serious difficulty concentrating, remembering, or making decisions? (5 years old or older) Answer Entry Date Author No 08/25/2023 6:06 PM Guerline Grier RN documented in this encounter Miscellaneous Notes * Addendum Note - Kwame France RN - 05/10/2024 12:25 PM ESTAddended by: KWAME FRANCE on: 05/10/2024 12:25 PM Modules accepted: Orders * Telephone Encounter - Kwame France RN - 05/10/2024 12:23 PM EST Referral pended. * Telephone Encounter - Randa Scott CPhT - 05/09/2024 10:04 AM EST Pt is requesting a referral for Endocrinology. Pt stating she has been passing a lot of kidney stones. Please advise. If there are any questions or concerns please call [phone] Thank you, Randa Scott CPhT [employer] Rope Sling Maker II [facility] 05/09/2024,10:05 AM documented in this encounter Plan of Treatment [...] Power of Attor gab? 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
--- OUTSIDE RECORDS SUMMARY | 2024-05-13 04:10 | External Medical Summary | Summary of Care ---
Author Name Unknown Organization [facility] Address [address] [place] [address] Phone [phone] Care Team Providers Care Drafter Topographical Name Role Phone Levar Ordonez DO Primary Care Provider [phone] Reason for Visit * Reason Onset Date Comments Medication Refill 05/09/2024 Encounter Details Date Type Department Care Team (Late st Contact Info) Description 05/09/2024 Refill Family Practice [facility] [address] [facility] [place] [address] Levar Ordonez DO [address] [facility] [place] [address] Allergies Active Allergy Reactions Criticality Noted Date Comments Prochlorperazine Psych complications 06/12/2020 Probably dystonic reaction. The patient does tolerate Phenergan Morphine Hives Low 03/20/2019 Pt feels the rash may have been from tape at the IV site. Sulfamethoxazole Hives High 03/03/2021 Trimethoprim Hives High 05/02/2018 documented as of this encounter (statuses as of 05/09/2024) Medications Acetaminophen 325 MG Oral Capsule Take 325 mg by mouth every 6 hours as needed for Pain, Mild. 07/15/19 24 Active Sertraline HCl 100 MG Oral Tablet (Zoloft)Indication s:Recurrent major depressive disorder, in full remission (HCC) TAKE 1 & 1/2 TABLETS BY MOUTH IN THE MORNING. 30 Tablet 11/26/19 24 Active busPIRone HCl 10 MG Oral Tablet (Buspar) Take 1 Tablet by mouth in the morning. 30 Tablet 12/18/19 24 Active Omeprazole 20 MG Oral Capsule Delayed Release (PriLOSEC)Indicati ons:Gastroesophage al reflux disease with esophagitis and hemorrhage Take 1 Capsule by mouth in the morning. 30 Capsule 12/18/19 24 Active Tamsulosin HCl 0.4 MG Oral Capsule (Flomax) Take 1 Capsule by mouth in the morning. 28 Capsule 12/18/19 24 Active Rizatriptan Benzoate 5 MG Oral Tablet Take 1 Tablet by mouth as needed for Migraine. May repeat in 2 hours if needed 10 Tablet 02/29/20 24 Active Gabapentin 300 MG Oral Capsule (Neurontin) Take 1 Capsule by mouth in the morning and 1 Capsule at noon and 1 Capsule before bedtime. 90 Capsule 03/01/20 24 Active Phenazopyridine HCl 100 MG Oral Tablet (Pyridium) Take 1 Tablet by mouth 3 times a day as needed for Pain, Breakthrough. 10 Tablet 1 04/14/20 24 Active Promethazine HCl 25 MG Oral Tablet (Phenergan) Take 1 Tablet by mouth every 6 hours as needed for Nausea for up to 20 doses. 20 Tablet 04/23/20 24 Active Ondansetron 4 MG Oral Tablet Disintegrating (Zofran) Place 1 Tablet on tongue every 8 hours as needed for Nausea. dissolve on tongue. 2 Tablet 04/29/20 24 Active predniSONE 10 MG Oral Tablet (Deltasone)Indicat ions:Pneumonia of left lower lobe due to infectious organism Take 5 tabs for 2 days, 4 tabs for 2 days, 3 tabs for 2 days, 2 tabs for 2 days 1 tab for 2 days 30 Tablet 05/06/20 24 Active Azithromycin 250 MG Oral Tablet (Zithromax)Indicat ions:Pneumonia of left lower lobe due to infectious organism Take 2 tabs by mouth on the first day, then 1 tab daily on days two through five 6 Tablet 05/06/20 24 024 Active Amoxicillin-Pot Clavulanate 875-125 MG Oral Tablet (Augmentin)Indicat ions:Pneumonia of left lower lobe due to infectious organism Take 1 Tablet by mouth in the morning and 1 Tablet before bedtime. Do all this for 10 days. 20 Tablet 05/06/20 24 Active ProAir HFA 108 (90 Base) MCG/ACT Inhalation Aerosol SolutionIndication s:Pneumonia of left lower lobe due to infectious organism Inhale 2 Puffs by mouth every 4 hours as needed for Wheezing, Cough or Shortness of Breath. 18 g 1 05/06/20 Active guaiFENesin-Codein e 100-10 MG/5ML Oral Solution (Robitussin AC)Indications:Pne umonia of left lower lobe due to infectious organism Take 5 mL by mouth every 4 hours as needed for Cough. 120 mL 05/06/20 Active Ondansetron 4 MG Oral Tablet Disintegrating (Zofran) Place 1 Tablet on tongue every 8 hours as needed for Nausea or Vomiting for up to 15 doses. dissolve on tongue. 15 Tablet 05/08/20 24 Active Baclofen 5 MG Oral Tablet (Lioresal) Take 1 Tablet by mouth 3 times a day as needed (Muscle spasms/back pain) for up to 5 days. 15 Tablet 05/08/20 24 024 Active oxyCODONE-Acetamin ophen 5-325 MG Oral Tablet (Percocet) Take 1 Tablet by mouth every 6 hours as needed for Pain, Severe. 40 Tablet 05/09/20 24 Active oxyCODONE-Acetamin ophen 5-325 MG Oral Tablet (Percocet) Take 1 Tablet by mouth every 6 hours as needed for Pain, Severe. 40 Tablet 05/02/20 24 024 Discontin ued(Refil l) documented as of this encounter (statuses as of 05/09/2024) Active Problems Problem Noted Date Diagnosed Date [...] Menorrhagia with regular cycle 04/16/2021 [facility] OTHER*[id number] 01/24/2021 Gastroesophageal reflux disease with esophagitis 01/04/2019 Recurrent major depressive disorder, in full rem ission 01/04/2019 Irritable bowel syndrome wit h both constipation and diarrhea 01/04/2019 documented as of this encounter (statuses as of 05/09/2024) Resolved Problems Problem Noted Date Diagnosed Date [...] as of this encounter (statuses as of 05/09/2024) Immunizations Name Administration Dates Next Due COVID-19 [...] No 05/05/2023 Does the household have a [facility] source of income? (Household - for [...] documented in this encounter Miscellaneous Notes * Telephone Encounter - Levar Ordonez DO - 05/09/2024 1:36 PM ESTSigned Prescriptions: Disp Refills oxyCODONE-Acetaminophen 5-325 MG Oral Tabl*40 Tab*0 Sig: Take 1 Tablet by mouth every 6 hours as needed for Pain, Severe. Authorizing Provider: LEVAR ORDONEZ * Telephone Encounter - Heather Smith RP - 05/09/2024 10:26 AM ESTPending Prescriptions: Disp Refills oxyCODONE-Acetaminophen 5-325 MG Oral Tabl*40 Tab*0 Sig: Take 1 Tablet by mouth every 6 hours as needed for Pain, Severe. * Telephone Encounter - Heather Smith [facility] - 05/09/2024 10:25 AM EST I have reviewed the patients controlled substance dispensing history in the Prescription Drug Monitoring Program in compliance with the [facility] regulations before prescribing a controlled substance. PDMP checked on 05/09/2024. Pending Prescriptions: Disp Refills oxyCODONE-Acetaminophen 5-325 MG Oral Tab*40 Tab*0 Sig: Take 1 Tablet by mouth every 6 hours as needed for Pain, Severe. Last Visit: 02/29/2024 (in office), 08/07/2023 (telemedicine) Next Visit: Visit date not found Date medication was last filled: 05/02 Date medication is due for refill: 04/11 Pharmacy: [id number] [address] [place] Is this request for a controlled substance? Yes and Urine Drug Screen Not completed Toxicology results: No results found. However, due to the size of the patient record, not all encounters were searched.Please check Results Review for a complete set of results. Please approve if appropriate. Thank you, Heather Smith, PharmD Clinical Pharmacist [facility] ([facility] [phone] 05/09/2024, 10:25 AM * Telephone Encounter - Randa Scott [facility] - 05/09/2024 10:02 AM EST Did you pend patient's preferred pharmacy and medication before forwarding?yes Pharmacy: [id number] [address] Pending Prescriptions: Disp [...] appointment Last date the medication was ordered: 05/02/24 Is this request for a controlled substance?Yes, What was the last refill date 05/02/24 w/ quantity 40 and dosage 5-325mg and Urine Drug Screen Not completed Urine Drug Screen:No results found. However, due to the size of the patient record, not all encounters were searched. Please check Results Review for a complete set of results. Patient Phone Numbers Labs: Lab Results Component Value Date/Time CREAT 0.8 05/08/2024 05:13 AM CREAT 0.9 06/22/2020 03:57 PM POTASSIUM 3.2 (L) 05/08/2024 05:13 AM POTASSIUM 4.9 06/22/2020 03:57 PM TSH 2.42 02/13/2021 07:39 AM TSH 1.20 02/22/2020 02:35 PM LDL 89 10/15/2022 05:20 PM LDL 93 09/11/2010 08:05 AM ALT 18 04/29/2024 07:06 PM ALT 13 06/12/2020 03:25 AM HGBA1C [...] Power of Attor gab? No Care Teams Drafter Topographical Relationship Specialty Start Date End Date Levar Ordonez DO [facility] [place] [place] [address] PCP - General Family Medicine 06/09/19 documented as of this encounter
--- OUTSIDE RECORDS SUMMARY | 2024-05-13 04:10 | External Medical Summary | Summary of Care ---
Author Name Unknown Organization [facility] Address [address] [place] [address] Phone [phone] Care Team Providers Care Accounts Receivable Clerk Name Role Phone JoanDimas gallegos Lorenza BELTRÁN Primary Care Provider [phone] Encounter Details Date Type Department Care Team (Late st Contact Info) Description 05/09/2024 Population Health External Data Unspecified Department Allergies [...] 6 hours as needed for Pain, Mild. 4 Active Sertraline HCl 100 MG Oral Tablet (Zoloft)Indication s:Recurrent major depressive disorder, in full remission (HCC) TAKE 1 & 1/2 TABLETS BY MOUTH IN THE MORNING. 30 Tablet 11 4 Active busPIRone HCl 10 MG Oral Tablet (Buspar) Take 1 Tablet by mouth in the morning. 30 Tablet 5 4 Active Omeprazole 20 MG Oral Capsule Delayed Release (PriLOSEC)Indicati ons:Gastroesophage al reflux disease with esophagitis and hemorrhage Take 1 Capsule by mouth in the morning. 30 Capsule 5 4 Active Tamsulosin HCl 0.4 MG Oral Capsule (Flomax) Take 1 Capsule by mouth in the morning. 28 Capsule 5 4 Active Rizatriptan Benzoate 5 MG Oral Tablet Take 1 Tablet by mouth as needed for Migraine. May repeat in 2 hours if needed 10 Tablet 5 4 Active Gabapentin 300 MG Oral Capsule (Neurontin) Take 1 Capsule by mouth in the morning and 1 Capsule at noon and 1 Capsule before bedtime. 90 Capsule 5 4 Active Phenazopyridine HCl 100 MG Oral [...] dissolve on tongue. 2 Tablet 4 Active oxyCODONE-Acetamin ophen 5-325 MG Oral Tablet (Percocet) Take 1 Tablet by mouth every 6 hours as needed for Pain, Severe. 40 Tablet 4 Active predniSONE 10 MG Oral [...] days. 15 Tablet 4 05/13/20 24 Active documented as of this encounter (statuses [...] Menorrhagia with regular cycle 04/16/2021 [facility] OTHER*[id number] 01/24/2021 Gastroesophageal reflux disease with esophagitis 01/04/2019 [...] colic 08/01/2023 02/29/2024 Retention of urine 08/01/2023 4 Right flank pain 08/01/2023 02/29/2024 Right flank [...] Guerline Grier RN documented in this encounter Plan of Treatment [...] Power of Attor gab? No Care Teams Accounts Receivable Clerk Relationship Specialty Start Date End Date Dimas Doty DO [address] [place] [address] PCP - General Family Medicine 06/09/19 documented as of this encounter
--- OUTSIDE RECORDS SUMMARY | 2024-05-13 04:10 | External Medical Summary | Summary of Care ---
Author Name Unknown Organization [facility] Address [address] [place] [address] Phone [phone] Care Team Providers Care Food Safety Director Name Role Phone Dimas Doty DO Primary Care Provider [phone] Reason for Visit * Reason Onset Date Comments Referral 05/09/2024 Encounter Details Date Type Department Care Team (Late st Contact Info) Description 05/09/2024 Telephone Family Practice [facility] [place] [address] [facility] [place] [address] Dimas Doty DO [address] [facility] [place] [address] Referral Allergies Active Allergy Reactions Criticality Noted [...] Menorrhagia with regular cycle 04/16/2021 [facility] OTHER*[id number] 01/24/2021 Gastroesophageal reflux disease with esophagitis 01/04/2019 [...] No 05/05/2023 Does the household have a [facility] source of income? (Household - for ages [...] encounter Miscellaneous Notes * Telephone Encounter - Randa Scott CPhT - 05/09/2024 10:04 AM EST Pt is requesting a referral for Endocrinology. Pt stating she has been passing a lot of kidney stones. Please advise. If there are any questions or concerns please call [phone] Thank you, Randa Scott CPhT [employer] [facility] 05/09/2024,10:05 [...] Power of Attor gab? No Care Teams Food Safety Director Relationship Specialty Start Date End Date Dimas Doty DO [address] [place] [address] PCP - General Family Medicine 06/09/19 documented as of this encounter
--- OUTSIDE RECORDS SUMMARY | 2024-05-13 04:11 | External Medical Summary | Summary of Care ---
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 Name Role Phone Dimas Doty DO Primary Care Provider [phone] Reason for Visit * Reason Comments Pain * Auth/Cert Specialty Diagnoses / Procedures Referred By Rosendo trujillo Referred To Contact [facility] [address] [place] [address] Phone: tel:[phone] [facility] Emergency Department ([facility]) [address] [place] [address] Phone: tel: fax: Referral ID Status Reason Start Date Expiration Date Visits Re quested Visits Authorized [id number] Encounter Details Date Type Department Care Team (Late st Contact Info) Description 05/08/2024 4:32 AM EST - 05/08/2024 9:18 AM EST Emergency [facility] Emergency Department ([facility]) [address] [place] [address] Magdalena Vallecillo MD [address] [facility] [place] [id number] Kaiser Kent DO [address] [place] [address] Acute nonintractable headache, unspecified headache type (Primary Dx); Arthralgia, unspecified joint; Acute left-sided back pain, unspecified back location Discharge Disposition: Home - Self Care Allergies Active Allergy Reactions Criticality Noted Date Comments Prochlorperazine Psych complications 06/12/2020 Probably dystonic reaction. The patient does tolerate Phenergan Morphine Hives Low 03/20/2019 Pt feels the rash may have been from tape at the IV site. Sulfamethoxazole Hives High 03/03/2021 Trimethoprim Hives High 05/02/2018 documented as of this encounter (statuses as of 05/08/2024) Medications Acetaminophen 325 MG Oral Capsule Take [...] times a day as needed for Pain, Breakthrough . 10 Tablet 1 04/14/20 24 Active Promethazine HCl 25 MG Oral Tablet (Phenergan) Take 1 Tablet by mouth every 6 hours as needed for Nausea for up to 20 doses. 20 Tablet 04/23/20 24 Active Ondansetron 4 MG Oral Tablet Disintegrating (Zofran) Place 1 Tablet on tongue every 8 hours as needed for Nausea. dissolve on tongue. 2 Tablet 04/29/20 24 Active oxyCODONE-Acetami nophen 5-325 MG Oral Tablet (Percocet) Take 1 Tablet by mouth every 6 hours as needed for Pain, Severe. 40 Tablet 05/02/20 24 Active predniSONE 10 MG Oral Tablet (Deltasone)Indica tions:Pneumonia of left lower lobe due to infectious organism Take 5 tabs for 2 days, 4 tabs for 2 days, 3 tabs for 2 days, 2 tabs for 2 days 1 tab for 2 days 30 Tablet 05/06/20 24 Active Azithromycin 250 MG Oral Tablet (Zithromax)Indica tions:Pneumonia of left lower lobe due to infectious organism Take 2 tabs by mouth on the first day, then 1 tab daily on days two through five 6 Tablet 05/06/20 24 024 Active Amoxicillin-Pot Clavulanate 875-125 MG Oral Tablet (Augmentin)Indica tions:Pneumonia of left lower lobe due to infectious organism Take 1 Tablet by mouth in the morning and 1 Tablet before bedtime. Do all this for 10 days. 20 Tablet 05/06/20 24 024 Active ProAir HFA 108 (90 Base) MCG/ACT Inhalation Aerosol SolutionIndicatio ns:Pneumonia of left lower lobe due to infectious organism Inhale 2 Puffs by mouth every 4 hours as needed for Wheezing, Cough or Shortness of Breath. 18 g 1 05/06/20 24 Active guaiFENesin-Codei ne 100-10 MG/5ML Oral Solution (Robitussin AC)Indications:Pn eumonia of left lower lobe due to infectious organism Take 5 mL by mouth every 4 hours as needed for Cough. 120 mL 05/06/20 24 Active Ondansetron 4 MG Oral Tablet [...] days. 15 Tablet 05/08/20 24 024 Active tiZANidine HCl 2 MG Oral Tablet (Zanaflex) Take 1 Tablet by mouth every 6 hours as needed for Muscle spasms. 30 Tablet 04/23/20 024 Discontinued documented as of this encounter (statuses as of 05/08/2024) Active Problems Problem Noted Date Diagnosed Date [...] Menorrhagia with regular cycle 04/16/2021 [facility] [employer] OTHER*[id number] 01/24/2021 Gastroesophageal reflux disease with esophagitis 01/04/2019 Recurrent major depressive disorder, in full rem ission 01/04/2019 Irritable bowel syndrome wit h both constipation and diarrhea 01/04/2019 documented as of this encounter (statuses as of 05/08/2024) Resolved Problems Problem Noted Date Diagnosed Date [...] as of this encounter (statuses as of 05/08/2024) Immunizations Name Administration Dates Next Due COVID-19 [...] Sign Reading Time Taken Comments Blood Pressure 124/86 05/08/2024 9:00 AM EST Pulse 76 05/08/2024 9:00 AM EST Temperature 36.5 C (97.7 F) 05/08/2024 4:35 AM ES T Respiratory Rate 19 05/08/2024 9:00 AM EST Oxygen Saturation 100% 05/08/2024 6:00 AM EST Inhaled Oxygen Concentration - - Weight 86.2 kg (190 lb) 05/08/2024 4:35 AM EST Height 167.6 cm (5' 6") 05/08/2024 4:35 AM EST Body Mass Index 30.67 05/08/2024 4:35 AM EST documented in this encounter Functional Status * Are you [...] Entry Date Author No 08/25/2023 6:06 PM EDT Guerline Holguin RN documented in this encounter Discharge Instructions * Discharge Instructions* Kaiser Kent DO - 05/08/2024 7:35 AM EST Your labs and imaging did not reveal any concerning acute abnormalities. Please make sure you follow-up with your doctor for this back pain. You need to come up with a planwith them to work this up further if it continues to bother you. Take the baclofen as prescribed. Do not take the tizanidine and baclofen together if you have any tizanidine left at home. Use the Zofran as prescribed for nausea and vomiting. Make sure you are hydrating frequently. If you develop any new or concerning symptoms such as chest pain, difficulty breathing, fevers, persistent nausea/vomiting, inability to tolerate oral hydration, severe abdominal pain, severely worsening back pain, numbness or weakness, severe sudden headaches, visual disturbance, or any other concerning symptoms please return to the emergency department for evaluation. documented in this encounter ED Notes * Magdalena Vallecillo MD - 05/08/2024 5:02 AM EST HISTORY OF PRESENT ILLNESS Zan Snell is a 29 year old female who presents to the ED for evaluation of Pain. The patient was seen at 05/08/24 0454. Lower back pain for a month, getting worse. History of kidney stones. Now she has 1 week of severe joint pain in her knees and ankles and back. Her head and the back of her neck hurt. The headache will not go away, the headache started 2 days ago. She says she tried migraine medication, Tylenol, ibuprofen, and muscle relaxer without improvement. She says she was started on medication for pneumonia 2 days ago: Z-Jaziel, Augmentin, prednisone, and cough syrup. She says her respiratory symptoms are getting better. She was no longer coughing. She has nausea and vomiting, some hematuria. She says she was 4 months and had preeclampsia at that time and this headache feels similar. Past medical history includes gastric bypass. She says she has history of hyperparathyroidism. Review of Systems Constitutional: Negative for fever. HENT: Negative for congestion, ear pain, rhinorrhea and sore throat. Eyes: Negative for visual disturbance. Respiratory: Negative for cough and shortness of breath. Cardiovascular: Negative for chest pain and leg swelling. Gastrointestinal: Negative for abdominal pain, constipation, diarrhea, nausea and vomiting. Genitourinary: Positive for hematuria. Negative for dysuria and frequency. History of kidney stones Musculoskeletal: Positive for arthralgias, back pain and neck pain. Negative for joint swelling andmyalgias. Skin: Negative for rash. Neurological: Positive for headaches. Negative for dizziness, weakness and light-headedness. No loss of bowel or bladder control All other systems reviewed and are negative. The patient's allergies, past history, and medications were reviewed. PHYSICAL EXAM Initial Vitals (see all): BP 140/102 | Pulse 96 | Resp 18 | Temp 97.7 | O2 100 %Weight 86.18 kg | Height 167.6 cm | BMI 30.67kg/m2 Initial Pain Assessment (see all): 9 (severe pain)/10 ([facility] Adult Scale 0-10) Physical Exam Vitals and nursing note reviewed. Constitutional: General: She is in acute distress (Moderate). Appearance: She is not ill-appearing, toxic-appearing or diaphoretic. HENT: Head: Normocephalic and atraumatic. Comments: The patient sounds slightly hoarse Cardiovascular: Rate and Rhythm: Normal rate and regular rhythm. Heart sounds: No murmur heard. No gallop. Pulmonary: Effort: Pulmonary effort is normal. No respiratory distress. Breath sounds: Normal breath sounds. Abdominal: General: Bowel sounds are normal. There is no distension. Palpations: Abdomen is soft. Tenderness: There is no abdominal tenderness. There is no guarding or rebound. Musculoskeletal: General: No swelling or deformity. Normal range of motion. Cervical back: Normal range of motion and neck supple. Spasms (Bilateral posterior paraspinous) present. No swelling, deformity or tenderness. No muscular tenderness. Normal range of motion. Thoracic back: Spasms (Bilateral paraspinous thoracolumbar junction) and tenderness (Bilateral paraspinous thoracolumbar junction) present. No swelling or deformity. Normal range of motion. Lumbar back: Spasms (Bilateral paraspinous thoracolumbar junction) and tenderness (Bilateral paraspinous thoracolumbar junction) present. No swelling or deformity. Normal range of motion. Right lower leg: No edema. Left lower leg: No edema. Comments: No tenderness or swelling bilateral lower extremities including knees and ankles and hips Lymphadenopathy: Cervical: No cervical adenopathy. Skin: General: Skin is warm and dry. Coloration: Skin is not cyanotic. Findings: No rash. Nails: There is no clubbing. Neurological: General: No focal deficit present. Mental Status: She is alert and oriented to person, place, and time. GCS: GCS eye subscore is 4. GCS verbal subscore is 5. GCS motor subscore is 6. Cranial Nerves: Cranial nerves 2-12 are intact. Motor: Motor function is intact. Psychiatric: Mood and Affect: Mood normal. Speech: Speech normal. Behavior: Behavior normal. Behavior is cooperative. PROCEDURES AND TREATMENTS ED Orders | ED Results MEDICAL DECISION MAKING Nursing notes and vital signs were reviewed. ED Course as of 05/08/24 0911 Sun May 08, 2024 0612 Many squamous epithelial cells in urine. Will await urine culture results [DH] 0613 Mild hypokalemia [DH] 0618 Reassessment: The patient says her back pain is starting to come back. She was not sure if this is because of kidney issues. Will give additional pain medication and order pertinent imaging [DH] 0712 29-year-old female presenting with lower back pain for a month, a week of severe joint pain inthe knees and ankles, back of her neck hurts as well and a headache that would not go away for the last few days. Has been on antibiotics and steroids for a pneumonia. Neck muscle spasms in his spasms across the mid back on exam. Neuro intact. Voice consistent with laryngitis. Patient had return ofback pain. [ ] renal US [ ] re eval [ ] dispo pending [AT] 4224 I evaluated this 29-year-old female at bedside. She appeared comfortable and I entered the room and in no distress. Her vitals are reassuring. I asked her what was bothering her and she said herback. She also said she was having intermittent cramps in her legs, her potassium is slightly low and repletion has been provided. She points to her left flank. Upon palpation her tenderness is brought on with palpation of the muscle primarily laterally and can be reproduced with palpating the lower posterior and slightly lateral musculature around the ribs. She is moving all her extremities well. She has no photophobia on exam. She has 5/5 strength in her lower extremities. She sits up independ ently in the bed without signs of distress to show me where her pain is. She is going for her ultrasound now. She has been provided multiple doses of pain medication and just provided a dose of muscle relaxer - baclofen. I am going to provide her a Lidoderm patch, a dose of Toradol and she is stillcomplaining of nausea therefore I will give her a dose of Tigan. She has been dealing with pneumonia and has been treated with antibiotics and steroids. Her urinalysis does show white blood cells leoncio few bacteria but no nitrites. Her CRP is negative. I did discuss with her that we would hold off on treating her with any antibiotics for this at this point send it off for urine culture. Her CRP is negative. In the rest of her labs are very reassuring. [AT] 0908 I went into re-evaluate the patient. She was laying in bed and again did not appear in distress. Her ultrasound shows a complex right renal cyst that it is unchanged from prior. Nothing on the left. Pain most consistent with a musculoskeletal pain. I asked her about the tizanidine prescription. She says she is almost out and prefers to take the baclofen that was provided here. I will give her a prescription of this and discharge her. I strongly encouraged her follow-up with her primary care doctor if this discomfort persists and make sure to come up with a plan with them if things are not improving. [AT] ED Course User Index [AT] Kaiser Kent, [DH] Magdalena Vallecillo MD Differential Diagnoses Based on my history, physical exam, and evaluation, the differential includes, but is not limited, to the following diagnoses: Viral syndrome, doubt meningitis, doubt intracranial bleed. Lyme disease, other polyarthralgia. Per review of EMR the patient has had 3 CT scans of the abdomen and pelvis from February of this year through April, and two renal ultrasounds in April. She was seen here twice a day April for left flank pain. 04/29/24 CT abdomen and pelvis: Clinical indication: Abdominal pain; Additional info: Persistent left-sided flank pain, intermittent, history significant kidney stones, mild hydronephrosis left side on ultrasound, no evidence of obstructive uropathy, COMPARISON: CT ABD/PELVIS WO IV/ORAL CONTRAST 04/23/2024 6:51 PM FINDINGS: Liver: Normal. No mass. Gallbladder and biliary ducts: Gallbladder is surgically absent. No bile duct obstruction. Pancreas: Normal. No ductal dilation. Spleen: Normal. No splenomegaly. Adrenal glands: Normal. No mass. Kidneys and ureters: Minimally complex cyst in the superior pole of the right kidney measuring 1.7 cm. Nonobstructing left nephrolithiasis. Stomach and bowel: Postsurgical changes of gastric bypass. No bowel obstruction or wall thickening. Appendix: No evidence of appendicitis. Intraperitoneal space: Unremarkable. No free air. No significant fluid collection. Vasculature: Unremarkable. No abdominal aortic aneurysm. Lymph nodes: Unremarkable. No enlarged lymph nodes. Urinary bladder: Unremarkable as visualized. Reproductive: Unremarkable as visualized. Bones/joints: Unremarkable. No acute fracture. Soft tissues: Unremarkable. IMPRESSION IMPRESSION: 1. No acute process in the abdomen or pelvis. 2. Nonobstructing left nephrolithiasis. 3. Hemorrhagic/proteinaceous right renal cyst. No follow-up is needed Amount and/or Complexity of Data Reviewed Labs: ordered. Radiology: ordered. Risk Prescription drug management. Clinical Impressions Acute nonintractable headache, unspecified headache type Acute bilateral back pain, unspecified back location Arthralgia, unspecified joint Disposition 07:15 the patient was signed out to Dr. Kent for follow up of pending results and for disposition Magdalena Vallecillo This chart was completed in part utilizing [employer] Speech Voice Recognition Software. Grammatical errors, random word insertions, prounoun errors, and incomplete sentences are an occasional consequence of this system due to software limitations, ambient noise, and hardware issues. Any formal questions or concerns about the content, text, or information contained within the body of this dictation should be directly addressed to the provider for clarification. Magdalena Vallecillo MD 05/08/2024 7:21 AM * Katelin Dorman RN - 05/08/2024 4:34 AM EST Reports headache, back pain, neck pain, and in joints x 1 month. documented in this encounter Miscellaneous Notes * Progress Notes - Non-Billable - Kaiser Kent, DO - 05/08/2024 9:12 AM EST ED Course as of 05/08/24 0912 Sun May 08, 2024 0612 Many squamous epithelial cells in urine. Will await urine culture results [DH] 0613 Mild hypokalemia [DH] 0618 Reassessment: The patient says her back pain is starting to come back. She was not sure if this is because of kidney issues. Will give additional pain medication and order pertinent imaging [DH] 0712 29-year-old female presenting with lower back pain for a month, a week of severe joint pain inthe knees and ankles, back of her neck hurts as well and a headache that would not go away for the last few days. Has been on antibiotics and steroids for a pneumonia. Neck muscle spasms in his spasms across the mid back on exam. Neuro intact. Voice consistent with laryngitis. Patient had return ofback pain. [ ] renal US [ ] re eval [ ] dispo pending [AT] 0729 I evaluated this 29-year-old female at bedside. She appeared comfortable and I entered the room and in no distress. Her vitals are reassuring. I asked her what was bothering her and she said herback. She also said she was having intermittent cramps in her legs, her potassium is slightly low and repletion has been provided. She points to her left flank. Upon palpation her tenderness is brought on with palpation of the muscle primarily laterally and can be reproduced with palpating the lower posterior and slightly lateral musculature around the ribs. She is moving all her extremities well. She has no photophobia on exam. She has 5/5 strength in her lower extremities. She sits up independ ently in the bed without signs of distress to show me where her pain is. She is going for her ultrasound now. She has been provided multiple doses of pain medication and just provided a dose of muscle relaxer - baclofen. I am going to provide her a Lidoderm patch, a dose of Toradol and she is stillcomplaining of nausea therefore I will give her a dose of Tigan. She has been dealing with pneumonia and has been treated with antibiotics and steroids. Her urinalysis does show white blood cells leoncio few bacteria but no nitrites. Her CRP is negative. I did discuss with her that we would hold off on treating her with any antibiotics for this at this point send it off for urine culture. Her CRP is negative. In the rest of her labs are very reassuring. [AT] 0908 I went into re-evaluate the patient. She was laying in bed and again did not appear in distress. Her ultrasound shows a complex right renal cyst that it is unchanged from prior. Nothing on the left. Pain most consistent with a musculoskeletal pain. I asked her about the tizanidine prescription. She says she is almost out and prefers to take the baclofen that was provided here. I will give her a prescription of this and discharge her. I strongly encouraged her follow-up with her primary care doctor if this discomfort persists and make sure to come up with a plan with them if things are not improving. [AT] ED Course User Index [AT] Kaiser Kent DO [DH] Magdalena Vallecillo MD Clinical Impressions Acute nonintractable headache, unspecified headache type Arthralgia, unspecified joint Acute left-sided back pain, unspecified back location Disposition Discharged. The patient's condition at disposition was: stable. Discharge Medications Disp Refills Start End Ondansetron 4 MG Oral Tablet Disintegrating (Zofran) 15 Tablet 0 05/08/2024 -- Sig - Route: Place 1 Tablet on tongue every 8 hours as needed for Nausea or Vomiting for up to 15 doses. dissolve on tongue. - On Tongue Class: ePrescribing Renewals Renewal requests to authorizing provider (Kaiser Kent DO) <b>prohibited</b> Baclofen 5 MG Oral Tablet (Lioresal) 15 Tablet 0 05/08/2024 05/13/2024 Sig - Route: Take 1 Tablet by mouth 3 times a day as needed (Muscle spasms/back pain) for up to 5 days. - Oral Class: ePrescribing Renewals Renewal requests to authorizing provider (Kaiser Kent DO) <b>prohibited</b> Kaiser Kent DO * ED Press Brake Operator Note - Marlen Nur, BIANKA - 05/08/2024 8:41 AM EST Pt rang call black and reported pain worse to L side, rating it 7/10. Dr. Kent notified. * ED Press Brake Operator Note - Shima Galarza RN - 05/08/2024 8:06 AM EST Pt reports she is unable to tolerate PO potassium drink at this time due to nausea. Medication administered per eMAR. Pt agreeable to try to drink potassium once the medication takes effect. * ED Press Brake Operator Note - Jaren Rosenberg RN - 05/08/2024 5:29 AM EST Pt presents to ED with generalized body pain. Pt states originally the pain was in her back but moved into her joints and head. Pt rates pain 9/10, has been taking Excedrin without relief. Pt denies chest pain, SOB, has nausea without vomiting. documented in this encounter Plan of Treatment Pending Results Name Type Priority Associated Diagnoses Date /Time LYME DISEASE ANTIBODY SCREEN WITH REFLEX TO CONFIRMATION Lab Routine 05/08/2024 5:13 AM EST LYME DISEASE ANTIBODY SCREEN Lab Routine 05/08/2024 5:13 AM EST CULTURE, URINE, QUANTITATIVE Lab STAT 05/08/2024 5:23 AM EST Scheduled Orders Name Type Priority Associated Diagnoses Orde r Schedule LYME DISEASE ANTIBODY SCREEN WITH REFLEX TO CONFIRMATION Lab Routine One Time for 1 Occurrences starting 05/08/2024 until 05/08/2024 LYME DISEASE ANTIBODY SCREEN Lab Routine Once for 1 Occur rences starting 05/08/2024 until 05/08/2024 CULTURE, URINE, QUANTITATIVE Lab STAT One Time for 1 Occurrences starting 05/08/2024 until 05/08/2024 Scheduled Procedures Name Priority Associated Diagnoses Date/Ti [...] Date/Time Associated Diagnosis Comments US RENAL STAT 05/08/2024 8:[address] HEAD/BRAIN WO CONTRAST STAT 05/08/2024 5:36 AM EST URINALYSIS, REFLEX TO CULTURE STAT 05/08/2024 5:23 AM EST URINALYSIS, REFLEX TO CULTURE (CUP ONLY) STAT 05/08/2024 5:23 AM EST URINALYSIS, REFLEX TO CULTURE (NOT FOR NEUTROPENIC PATIENTS) STAT 05/08/2024 5:23 AM EST DIFFERENTIAL, AUTOMATED STAT 05/08/2024 5:13 AM EST CRP (INFLAMMATORY MARKER) STAT 05/08/2024 5:13 AM EST BASIC METABOLIC PANEL STAT 05/08/2024 5:13 AM EST CK STAT 05/08/2024 5:13 AM EST CBC STAT 05/08/2024 5:13 AM EST CBC STAT 05/08/2024 5:13 AM EST MAGNESIUM STAT 05/08/2024 5:13 AM EST documented in this encounter Results * US RENAL (05/08/2024 8:05 AM EST) Anatomical Region Laterality Modality Abdomen, Body Ultrasound 05/08/2024 7:26 AM EST Impressions 05/08/2024 8:14 AM EST IMPRESSION: 1.3 cm mildly complex cystic lesion upper pole right kidney which is been previously described. 4 mm right and 3.5 mm left intrarenal calculus. THIS DOCUMENT HAS BEEN ELECTRONICALLY SIGNED BY NATALYA BLANTON MD Narrative 05/08/2024 8:14 AM EST PROCEDURE INFORMATION: Exam: US Retroperitoneal, Complete, Kidneys and Bladder Exam date and time: 05/08/2024 7:26 AM Age: 29 years old Clinical indication: Pain; Other: Back; Additional info: Back pain, history of nephrolithiasis TECHNIQUE: Imaging protocol: Real-time ultrasound of the retroperitoneum with image documentation. Complete exam focused on the bilateral kidneys and urinary bladder. COMPARISON: US RENAL 04/29/2024 7:19 PM FINDINGS: Right kidney: The right kidney measures 10.2 x 5.5 x 4.9 cm. No evidence of hydronephrosis. 1.3 cm mildly complex cystic lesion upper pole right kidney which is been previously described. 4 mm right intrarenal calculus. Left kidney: The left kidney measures 10.2 x 5.6 x 5.1 cm. No evidence of hydronephrosis. 3.5 mm left intrarenal calculus. Urinary bladder: Evaluation of the bladder is unremarkable. Aorta: The aorta is normal in caliber. Procedure Note Natalya Blanton MD - 05/08/2024 PROCEDURE INFORMATION: Exam: US Retroperitoneal, Complete, Kidneys and Bladder Exam date and time: 05/08/2024 7:26 AM Age: 29 years old Clinical indication: Pain; Other: Back; Additional info: Back pain,history of nephrolithiasis TECHNIQUE: Imaging protocol: Real-time ultrasound of the retroperitoneum with image documentation. Complete exam focused on the bilateral kidneys and urinary bladder. COMPARISON: US RENAL 04/29/2024 7:19 PM FINDINGS: Right kidney: The right kidney measures 10.2 x 5.5 x 4.9 cm. No evidenceof hydronephrosis. 1.3 cm mildly complex cystic lesion upper pole rightkidney which is been previously described. 4 mm right intrarenal calculus. Left kidney: The left kidney measures 10.2 x 5.6 x 5.1 cm. No evidence of hydronephrosis. 3.5 mm left intrarenal calculus. Urinary bladder: Evaluation of the bladder is unremarkable. Aorta: The aorta is normal in caliber. IMPRESSION IMPRESSION: 1.3 cm mildly complex cystic lesion upper pole right kidney which is been previously described. 4 mm right and 3.5 mm left intrarenal calculus. THIS DOCUMENT HAS BEEN ELECTRONICALLY SIGNED BY NATALYA BLANTON MD us Magdalena Vallecillo MD RAD ULTRASOUND Final Res ult * CT HEAD/BRAIN WO CONTRAST (05/08/2024 5:36 AM EST) Anatomical Region Laterality Modality Head Computed Tomogra phy 05/08/2024 5:27 AM EST Impressions 05/08/2024 5:49 AM EST IMPRESSION: No acute intracranial abnormality. THIS DOCUMENT HAS BEEN ELECTRONICALLY SIGNED BY CARLOS DE GUZMAN MD Narrative 05/08/2024 5:49 AM EST PROCEDURE INFORMATION: Exam: CT Head Without Contrast Exam date and time: 05/08/2024 5:27 AM Age: 29 years old Clinical indication: Pain; Headache; Additional info: Headache and neck stiffness TECHNIQUE: Imaging protocol: Computed tomography of the head without contrast. Radiation optimization: All CT scans at this facility use at least one of these dose optimization techniques: automated exposure control; mA and/or kV adjustment per patient size (includes targeted exams where dose is matched to clinical indication); or iterative reconstruction. COMPARISON: No relevant prior studies available. FINDINGS: Brain: Normal. No hemorrhage. Unremarkable white matter. No mass effect. Cerebral ventricles: No ventriculomegaly. Paranasal sinuses: Visualized sinuses are unremarkable. No fluid levels. Mastoid air cells: Visualized mastoid air cells are well aerated. Small mucous retention cyst within the sphenoid sinus. Bones: Unremarkable. No acute fracture. Soft tissues: Unremarkable. Procedure Note Carlos De Guzman MD - 05/08/2024 PROCEDURE INFORMATION: Exam: CT Head Without Contrast Exam date and time: 05/08/2024 5:27 AM Age: 29 years old Clinical indication: Pain; Headache; Additional info: Headache and neck stiffness TECHNIQUE: Imaging protocol: Computed tomography of the head without contrast. Radiation optimization: All CT scans at this facility use at least one ofthese dose optimization techniques: automated exposure control; mA and/or kV adjustment per patient size (includes targeted exams where dose is matchedto clinical indication); or iterative reconstruction. COMPARISON: No relevant prior studies available. FINDINGS: Brain: Normal. No hemorrhage. Unremarkable white matter. No mass effect. Cerebral ventricles: No ventriculomegaly. Paranasal sinuses: Visualized sinuses are unremarkable. No fluid levels. Mastoid air cells: Visualized mastoid air cells are well aerated. Smallmucous retention cyst within the sphenoid sinus. Bones: Unremarkable. No acute fracture. Soft tissues: Unremarkable. IMPRESSION IMPRESSION: No acute intracranial abnormality. THIS DOCUMENT HAS BEEN ELECTRONICALLY SIGNED BY CARLOS DE GUZMAN MD Magdalena Vallecillo MD RAD CT Final Res ult * (ABNORMAL) URINALYSIS, REFLEX TO CULTURE (05/08/2024 5:23 AM EST) Color, Urine Yellow Light Yellow, Yellow, Dark Yellow 05/08/2024 5:36 AM EST LAB[facility]AT[facility] Clarity, Urine Clear Clear 05/08/2024 5:36 AM EST LAB[facility] Glucose, Urine Negative Negative mg/dL 05/08/2024 5:36 AM EST LAB[facility] Bilirubin, Urine Negative Negative 05/08/2024 5:36 AM EST [facility] Ketone, Urine Negative Negative mg/dL 05/08/2024 5:36 AM EST LAB[facility] Specific [place], Urine 1.010 1.003 - 1.030 05/08/2024 5:36 AM EST [facility] Blood, Urine Large(A) Negative 05/08/2024 5:36 AM EST LAB[facility] pH, Urine 6.0 5.0 - 7.5 Units 05/08/2024 5:36 AM EST [facility] Protein, Urine Negative Negative mg/dL 05/08/2024 5:36 AM EST [facility] Urobilinogen, Urine 0.2 0.2, 1.0 mg/dL 05/08/2024 5:36 AM EST [facility] Nitrite, Urine Negative Negative 05/08/2024 5:36 AM EST [facility] Esterase, Urine Small(A) Negative 05/08/2024 5:36 AM EST [facility] RBC, Urine 30-49(A) 0 - 2 /HPF 05/08/2024 5:36 AM EST [facility] WBC, Urine 20-29(A) 0 - 2 /HPF 05/08/2024 5:36 AM EST [facility] Bacteria, Urine 26-50(A) 0 - 25 /HPF 05/08/2024 5:36 AM EST [facility] Squamous Epithelial Cells, Urine Many(A) None /HPF 05/08/2024 5:36 AM EST [facility] Calcium Oxalate Crystal, Urine 1-4(A) None /HPF 05/08/2024 5:36 AM EST [facility] Culture, Urine 05/08/2024 5:36 AM EST LAB[facility] Comment:Quantitative urine c ulture to be performed Urine Urine specimen obtained by clean catch procedure / Unknown Non-blood Collection / Unknown 05/08/2024 5:23 AM EST 05/08/2024 5:26 AM EST Magdalena Vallecillo MD LAB URINE ORDERABLES Vangie l Result Performing Organization Address [facility] de Phone Number LABORATORY [address] [address] * URINALYSIS, REFLEX TO CULTURE (CUP ONLY) (05/08/2024 5:23 AM EST) Urinalysis, Reflex to Culture Specimen Specimen collected and received 05/08/2024 7:00 AM EST [facility] Urine Urine specimen obtained by clean catch procedure / Unknown Non-blood Collection / Unknown 05/08/2024 5:23 AM EST 05/08/2024 5:26 AM EST Magdalena Vallecillo MD LAB URINE ORDERABLES Vangie l Result Performing Organization Address [facility] de Phone Number LABORATORY [address] [address] * DIFFERENTIAL, AUTOMATED (05/08/2024 5:13 AM EST) WBC 9.53 4.00 - 10.80 K/uL 05/08/2024 5:24 AM EST LAB[facility] Neutrophils % 57.4 40.0 - 75.0 % 05/08/2024 5:24 AM EST [facility] Lymphocytes % 34.6 18.0 - 42.0 % 05/08/2024 5:24 AM EST [facility] Monocytes % 6.5 1.0 - 11.0 % 05/08/2024 5:24 AM EST [facility] Eosinophils % 0.3 0.0 - 6.0 % 05/08/2024 5:24 AM EST [facility] Basophils % 0.8 0.0 - 2.0 % 05/08/2024 5:24 AM EST [facility] Immature Granulocytes % 0.4 0.0 - 2.0 % 05/08/2024 5:24 AM EST [facility] Absolute Neutrophils 5.46 1.80 - 7.70 K/uL 05/08/2024 5:24 AM EST [facility] Absolute Lymphocytes 3.30 1.00 - 4.80 K/ul 05/08/2024 5:24 AM EST [facility] Absolute Monocytes 0.62 0.00 - 1.10 K/uL 05/08/2024 5:24 AM EST [facility] Absolute Eosinophils 0.03 0.00 - 0.70 K/uL 05/08/2024 5:24 AM EST [facility] Absolute Basophils 0.08 0.00 - 0.20 K/uL 05/08/2024 5:24 AM EST [facility] Absolute Immature Granulocytes 0.04 0.00 - 0.20 K/uL 05/08/2024 5:24 AM EST [facility] Blood Venous blood specimen / Unknown Venipuncture / Unknown 05/08/2024 5:13 AM EST 05/08/2024 5:17 AM EST Magdalena Vallecillo MD LAB BLOOD ORDERABLES Vangie l Result LABORATORY [address] [address] * (ABNORMAL) CBC (05/08/2024 5:13 AM EST) WBC 9.53 4.00 - 10.80 K/uL 05/08/2024 5:24 AM EST [facility] RBC 4.09 3.85 - 5.15 M/uL 05/08/2024 5:24 AM EST [facility] HGB 11.9(L) 12.0 - 15.3 g/dL 05/08/2024 5:24 AM EST [facility] HCT 36.7 36.0 - 45.2 % 05/08/2024 5:24 AM EST [facility] MCV 89.7 81.5 - 97.5 fL 05/08/2024 5:24 AM EST [facility] MCH 29.1 27.0 - 34.0 pg 05/08/2024 5:24 AM EST [facility] MCHC 32.4 32.0 - 36.0 g/dL 05/08/2024 5:24 AM EST LAB[facility]ORY [facility] RDW 13.9 11.5 - 15.5 % 05/08/2024 5:24 AM EST [facility] PLT 343 140 - 400 K/uL 05/08/2024 5:24 AM EST [facility] MPV 8.9 6.6 - 11.1 fL 05/08/2024 5:24 AM EST [facility] nRBCs 0 <=0 /100 WBCs 05/08/2024 5:24 AM EST [facility] Blood Venous blood specimen / Unknown Venipuncture / Unknown 05/08/2024 5:13 AM EST 05/08/2024 5:17 AM EST Magdalena Vallecillo MD LAB BLOOD ORDERABLES Vangie l Result LABORATORY [address] [id number] * MAGNESIUM (05/08/2024 5:13 AM EST) Magnesium 2.1 1.5 - 2.6 mg/dL 05/08/2024 5:47 AM EST [facility] Blood Venous blood specimen / Unknown Venipuncture / Unknown 05/08/2024 5:13 AM EST 05/08/2024 5:17 AM EST Magdalena Vallecillo MD LAB BLOOD ORDERABLES Vangie l Result Performing Organization Address City/[facility]/ZIP Co de Phone Number LABORATORY [address] [address] * CRP (INFLAMMATORY MARKER) (05/08/2024 5:13 AM EST) CRP (Inflammatory Marker) <3 <=5 mg/L 05/08/2024 5:47 AM EST [facility] Blood Venous blood specimen / Unknown Venipuncture / Unknown 05/08/2024 5:13 AM EST 05/08/2024 5:17 AM EST Magdalena Vallecillo MD LAB BLOOD ORDERABLES Vangie l Result LABORATORY [facility] [address] [place], [place] [id number] * CK (05/08/2024 5:13 AM EST) CK 56 26 - 192 U/L 05/08/2024 5:47 AM EST [facility] Blood Venous blood specimen / Unknown Venipuncture / Unknown 05/08/2024 5:13 AM EST 05/08/2024 5:17 AM EST us Magdalena Vallecillo MD LAB BLOOD ORDERABLES Vangie l Result Performing Organization Address City/[facility] Co de Phone Number LABORATORY [address] [address] * (ABNORMAL) BASIC METABOLIC PANEL (05/08/2024 5:13 AM EST) BUN 10 6 - 20 mg/dL 05/08/2024 5:47 AM EST [facility] CREATININE 0.8 0.5 - 1.0 mg/dL 05/08/2024 5:47 AM EST [facility] EGFR >90 >=60 mL/min 05/08/2024 5:47 AM EST [facility] Comment:eGFR is calculated b ased on the CKD-EPI 2020 equation. SODIUM 143 135 - 146 mmol/L 05/08/2024 5:47 AM EST [facility] POTASSIUM 3.2(L) 3.5 - 5.1 mmol/L 05/08/2024 5:47 AM EST [facility] CHLORIDE 105 98 - 107 mmol/L 05/08/2024 5:47 AM EST [facility] CO2 25 22 - 32 mmol/L 05/08/2024 5:47 AM EST [facility] ANION GAP 13 7 - 15 mmol/L 05/08/2024 5:47 AM EST [facility] GLUCOSE 95 70 - 120 mg/dL 05/08/2024 5:47 AM EST [facility] CALCIUM 9.3 8.4 - 10.2 mg/dL 05/08/2024 5:47 AM EST [facility] Blood Venous blood specimen / Unknown Venipuncture / Unknown 05/08/2024 5:13 AM EST 05/08/2024 5:17 AM EST us Magdalena Vallecillo MD LAB BLOOD ORDERABLES Vangie sera Result LABORATORY [place] [phone] documented in this encounter Visit Diagnoses Diagnosis Acute nonintractable headache, unspecified headache type- Primary Arthralgia, unspecified joint Acute left-sided back pain, unspecified back location documented in this encounter Administered Medications Inactive Administered Medications - up to 3 most recent administrations Medication Order MAR Action Action Date Dose Rate Site Baclofen (Lioresal) tab 10 mg 10 mg, Oral, ONCE, On 05/08/24 at 0730, For 1 dose Given 05/08/2024 7:16 AM EST 10 mg fentaNYL (PF) inj 100 mcg 100 mcg, Intravenous, ONCE, On 05/08/24 at 0545, For 1 dose, When given IV Push its recommended that the dose be given over 3 to 5 minutes. Given 05/08/2024 5:27 AM EST 100 mcg fentaNYL (PF) inj 100 mcg 100 mcg, Intravenous, ONCE, On 05/08/24 at 0715, For 1 dose, When given IV Push its recommended that the dose be given over 3 to 5 minutes. Given 05/08/2024 7:00 AM EST 100 mcg keTORolac (Toradol) 30 MG/ML inj 15 mg 15 mg, IV Push, ONCE, On 05/08/24 at 0800, For 1 dose Given 05/08/2024 7:57 AM EST 15 mg Lidocaine (Aspercreme) 4 % patch 1 Patch 1 Patch, Transdermal, ONCE, On 05/08/24 at 0800, For 1 dose, Apply patch for 12 hours then remove for 12 hours! Remove any Lidocaine patches the patient may currently be wearing prior to applying the new patch Patch Applied 05/08/2024 8:00 AM EST 1 Patch Back Left ondansetron (Zofran) inj 4 mg 4 mg, IV Push, ONCE, On 05/08/24 at 0545, For 1 dose Given 05/08/2024 5:27 AM EST 4 mg ondansetron (Zofran) inj 4 mg 4 mg, IV Push, ONCE, On 05/08/24 at 0715, For 1 dose Given 05/08/2024 7:00 AM EST 4 mg Potassium Bicarbonate (Klor-Con/Ef) eff tab TBEF 25 mEq 25 mEq, Oral, ONCE, On 05/08/24 at 0645, For 1 dose Given 05/08/2024 6:28 AM EST 25 mEq trimethobenzamide (Tigan) inj 100 mg 100 mg, Intramuscular, ONCE, On 05/08/24 at 0800, For 1 dose Given 05/08/2024 7:58 AM EST 100 mg Deltoid Right Upper documented in this encounter Active and Recently Administered Medications Times are shown in EST. Scheduled Medication Order 05/06/2024 05/07/2024 05/08/2024 Baclofen (Lioresal) tab 10 mg (COMPLETED) 10 mg, Oral, ONCE, On 05/08/24 at 0730, For 1 dose 0716 (Given - Provid er: Jaren Rosenberg RN) fentaNYL (PF) inj 100 mcg (COMPLETED) 100 mcg, Intravenous, ONCE, On 05/08/24 at 0545, For 1 dose, When given IV Push its recommended that the dose be given over 3 to 5 minutes. 0527 (Given - Provid er: Jaren Rosenberg RN) fentaNYL (PF) inj 100 mcg (COMPLETED) 100 mcg, Intravenous, ONCE, On 05/08/24 at 0715, For 1 dose, When given IV Push its recommended that the dose be given over 3 to 5 minutes. 0700 (Given - Provid er: Jaren Rosenberg RN) keTORolac (Toradol) 30 MG/ML inj 15 mg (COMPLETED) 15 mg, IV Push, ONCE, On 05/08/24 at 0800, For 1 dose 0757 (Given - Provid er: Shima Galarza RN) Lidocaine (Aspercreme) 4 % patch 1 Patch 1 Patch, Transdermal, ONCE, On 05/08/24 at 0800, For 1 dose, Apply patch for 12 hours then remove for 12 hours! Remove any Lidocaine patches the patient may currently be wearing prior to applying the new patch 0800 (Patch Applied - Provider: Shima Galarza RN)0918 (Due: Patch Removed - Provider: Discharge, Physician - Comment: Time automatically adjusted from order being discontinued) ondansetron (Zofran) inj 4 mg (COMPLETED) 4 mg, IV Push, ONCE, On 05/08/24 at 0545, For 1 dose 0527 (Given - Provid er: Jaren Rosenberg RN) ondansetron (Zofran) inj 4 mg (COMPLETED) 4 mg, IV Push, ONCE, On 05/08/24 at 0715, For 1 dose 0700 (Given - Provid er: Jaren Rosenberg RN) Potassium Bicarbonate (Klor-Con/Ef) eff tab TBEF 25 mEq (COMPLETED) 25 mEq, Oral, ONCE, On 05/08/24 at 0645, For 1 dose 0628 (Given - Provid er: Jaren Rosenberg RN) trimethobenzamide (Tigan) inj 100 mg (COMPLETED) 100 mg, Intramuscular, ONCE, On 05/08/24 at 0800, For 1 dose 0758 (Given - Provid er: Shima Galarza RN) documented in this encounter Advance Directives [...] Power of Attor gab? 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
--- OUTSIDE RECORDS SUMMARY | 2024-05-13 04:11 | External Medical Summary ---
Author Name Unknown Address Unknown Organization K01:[facility] [place] [address] [place] [address] Laboratory Report Ordering Provider Test Date Status DEVENDRA JACKSON 05/08/2024 05:13:59 Final Observation Date Value Abnormality Reference (Units ) Status Borrelia burgdorferi IgG and IgM [Interpretation] in Serum by Immunoassay 05/08/2024 05:13:59 Negative Negative Final Performing Location [facility] [place] - [address] [place] [address]
--- OUTSIDE RECORDS SUMMARY | 2024-05-13 04:11 | External Medical Summary ---
Author Name Unknown Address Unknown Organization K01:[facility] [place] [address] [place] [id number] Laboratory Report Ordering Provider Test Date Status DEVENDRA JACKSON 05/08/2024 05:23:28 Final Observation Date Value Abnormality Reference (Units) Status Bacteria identified in Specimen by Culture 05/08/2024 05:23:28 No significant growth Final Test: Culture, Urine, Quant itative
Specimen Source: Urine, Clean Catch
Specimen Type: Urine
Specimen Date: 05/08/2024522
Result Date: 05/09/2024 0853
Result Status: Final result
Resulting Lab: [facility] [place]
[address]
[place] [facility]

CULTURE

No significant growth

null Performing Location [facility] [place] [address] [facility] [address]
== END 2024-05-12 12:44 | disposition home or self-care (01) | DRG 872 ==
LOC: ED 16:46 → EDINP 20:41 → 3E 21:09

== ENCOUNTER 2024-05-16 14:33 | Inpatient (IN) ==
[2024-05-16 15:13] LABS: Basophils # (auto) 0.11 K/uL (0.00-0.20); Eosinophils # (auto) 0.04 K/uL (0.00-0.50); Eosinophils % (auto) 0.4 %; Hematocrit (blood only) 34.4 % (37.0-47.0); Hemoglobin 11.2 g/dl (12.0-16.0); Immature Granulocytes # (auto) 0.06 K/uL (0.01-0.20); Immature Granulocytes % (auto) 0.5 %; Lymphocytes # (auto) 2.88 K/uL (1.20-3.40); Lymphocytes % (auto) 25.5 %; Mean Corpuscular Hemoglobin 29.2 pg (25.0-34.0); Mean Corpuscular Hgb Conc 32.6 g/dL (32.0-36.0); Mean Corpuscular Volume 89.6 fL (80.0-100.0); Mean Platelet Volume 9.2 fL (9.4-12.4); Monocytes # (auto) 0.89 K/uL (0.11-0.59); Monocytes % (auto) 7.9 %; Neutrophils % (auto) 64.7 %; Platelet Count 393 K/uL (130-400); RDW Coefficient of Variation 14.3 % (11.5-14.5); RDW Standard Deviation 45.7 fL (36.4-46.3); Red Blood Count 3.84 M/uL (4.20-5.40); White Blood Count 11.28 K/ul (4.8-10.8)
[2024-05-16 15:32] LABS: Alanine Aminotransferase 10 U/L (7-52); Albumin Globulin Ratio 1.9 (0.9-2); Albumin Level 4.3 gm/dl (3.4-5.0); Alkaline Phosphatase 47 U/L (34-104); Anion Gap 7 (3-11); Aspartate Aminotransferase 13 U/L (13-39); BUN Creatinine Ratio 13.7 (10-20); Bilirubin,Total 0.4 mg/dl (0.2-1.0); Blood Urea Nitrogen 13 mg/dl (6-23); Calcium 8.8 mg/dl (8.6-10.3); Carbon Dioxide 26 mmol/L (21-32); Chloride 105 mmol/L (98-107); Creatinine Clr Calc Pharmacy 95.1 ml/min; Globulin 2.3 gm/dl (2.5-4.0); Glucose 97 mg/dl (70-99(Fasting)); Potassium 3.6 mmol/L (3.5-5.1); Sodium 138 mmol/L (136-145); Total Protein 6.6 gm/dl (6.0-8.3)
--- NOTE | 2024-05-16 15:35 | XRay Report ---
XR chest 1V not portable CLINICAL HISTORY: Sepsis TECHNIQUE: Single frontal radiograph of the chest was obtained. Comparison: Comparison is made to chest radiographs 12/29/2023 FINDINGS: No lines and tubes are seen. The cardiomediastinal silhouette is normal. The lungs are clear. No evid ence of pleural effusion or pneumothorax. IMPRESSION: No acute abnormalities and in particular no radiographic evidence of pneumonia. ACT 112: Negative or not required by law. Electronically signed by: Alexander Gutierrez M.D. 05/16/2024 3:33 PM
[2024-05-16 15:39] LABS: Troponin I High Sensitivity < 2.3 pg/ml (0-14)
[2024-05-16 15:47] LABS: INR 1.1 (0.9-1.1); Partial Thromboplastin Ratio 0.8; Partial Thromboplastin Time 22 Seconds (21-31); Prothrombin Time 11.4 Seconds (9.0-12.0)
--- NOTE | 2024-05-16 15:49 | Electrocardiogram Report ---
Test Reason : Blood Pressure : */* mmHG Vent. Rate : 93 BPM Atrial Rate : 93 BPM P-R Int : 118 ms QRS Dur : 84 ms QT Int : 342 ms P-R-T Axes : 37 54 23 degrees QTcB Int : 425 ms Normal sinus rhythm Normal ECG When compared with ECG of 29-Dec-2023 15:41, No significant change Confirmed by Adan Guo ([id number]) on 05/16/2024 3:49:27 PM Referred By: Confirmed By: Adan Guo
[2024-05-16 16:56] LABS: Appearance Urine Clear (Clear); Bilirubin Urine Negative (Negative); Blood Urine Trace-intact (Negative); Color Urine Yellow; Glucose Urine UA Negative (Negative); Ketones Urine Negative (Negative); Leukocyte Esterase Urine Negative (Negative); Nitrite Urine Positive (Negative); Protein Urine Negative (Negative); Specific Gravity Urine 1.015 (1.000-1.030); Urobilinogen Urine Negative (Negative); pH Urine 6.5 (4.5-7.5)
[2024-05-16 17:03] LABS: Epithelial Cell Urine >20 /hpf (0-2)
[2024-05-16 17:04] LABS: Bacteria Urine 1+ (None Seen); RBC Urine 0-2 /hpf (0-2); WBC Urine 0-5 /hpf (0-5)
[2024-05-16] MEDS: OPTIRAY 320 100ml IV ONE (17:12)
[2024-05-16] MEDS: ACETAMINOPHEN 1,000 MG/100 ML VIAL IV STA (17:24)
[2024-05-16] MEDS: SODIUM CHLORIDE 0.9% 1,000 ML IV ONE (17:24)
[2024-05-16] MEDS: ONDANSETRON INJ 2 MG/ML 2 ML VIAL IV STA (17:29)
[2024-05-16] MEDS: KETOROLAC TROMETHAMINE 15 MG/ML VIAL IV STA (17:31)
--- NOTE | 2024-05-16 17:33 | CT Scan Report ---
EXAM: CT Abdomen and Pelvis With Intravenous Contrast INDICATION: Abdominal pain. Leukocytosis. Recent urosepsis. TECHNIQUE: Axial computed tomography images of the abdomen and pelvis with intravenous contrast. Sagittal and coronal reformatted images were created and reviewed. This CT exam was performed using one or more of the following dose reduction techniques: automated exposure control, adjustment of the mA and/or kV according to patient size, and/or use of iterative reconstruction technique. CONTRAST: 95ml of Optiray 320 was administered intravenously. COMPARISON: 05/08/2024 FINDINGS: Limitations: None. Lung bases: No abnormality noted. Pleural space: No visualized pleural effusion or pneumothorax. Heart: No abnormality noted. Mediastinum: No abnormality noted. ABDOMEN: Liver: No abnormality noted. Gallbladder and bile ducts: Cholecystectomy. No ductal dilation or stone noted. Pancreas: Homogeneous enhancement. No mass, inflammation or ductal dilation. Spleen: No significant abnormality noted. Adrenals: No significant abnormality noted. Kidneys and ureters: A 3 mm stone has migrated from the left upper pole to the left UVJ. No hydronephrosis. Stable hyperdense cyst in the apex of the right kidney. Punctate nonobstructing left kidney stone unchanged. No hydronephrosis. No urinary gas. No perinephric fluid. Stomach and bowel: Postoperative changes gastric bypass. Moderate stool in the colon most copious in the rectosigmoid. Distal rectum collapsed and not optimally assessed. There is no intestinal obstruction, thickening or inflammatory process. PELVIS: Appendix: No findings to suggest acute appendicitis. Bladder: No filling defects to suggest mass or large stone. No inflammation. Reproductive: Benign-appearing right ovarian cyst measures 2.5 x 2.0 cm. No further assessment required. ABDOMEN and PELVIS: Intraperitoneal space: No free air. No significant fluid collection. Bones/joints: No acute changes. Soft tissues: Umbilical hernia containing fat. Vasculature: No abdominal aortic aneurysm. Lymph nodes: No pathologically enlarged lymph nodes. IMPRESSION: 1. A 3 mm stone has migrated from the left upper pole to the left UVJ. No hydronephrosis. 2. Moderate stool most copious in the redundant rectosigmoid. No obstruction. ACT 112: Negative or not required by law. Electronically signed by Radha Nick 05-16-2024 5:31 PM
[2024-05-16 18:05] LABS: Pregnancy Test, Serum Negative (Negative)
--- NOTE | 2024-05-16 18:30 | Emergency Department Note ---
Impression & Plan Ureterolithiasis, UTI (urinary tract infection), Left flank pain ED Provider Note NAME: BIANCA ALCAZAR AGE: 29 SEX: F : 1995 ARRIVES VIA: Walk-In INFORMANT: Patient ED PROVIDER(S): Matt Wang MD CHIEF COMPLAINT: Abdominal pain, back pain, dysuria, referred. PLAN: Disposition: Admit MEDICAL DECISION MAKING: The patient is a pleasant 29-year-old woman with a past medical history of nephrolithiasis, complicated UTI, history of gastric bypass, GERD, chronic anemia recent admission to this facility from 05/10-05/12 for complicated UTI with sepsis who presents to the emergency department via walk-in for evaluation of ongoing flank pain, lower abdominal pain, dysuria, and feverishness. Patient reports that she was referred to the emergency department by her primary care provider. Review of [facility] records demonstrate the patient was seen at [facility] on 05/[address] imaging. Of note, the patient did arrive to emergency department during time of high volume, acuity and prolonged emergency department waiting times. Critical pathways initiated from triage. On evaluation the patient is uncomfortable no acute distress, afebrile heart in the 100s and blood pressure 150s/100s and vital signs otherwise stable. She appears clinically dry. She exhibits pain response to light touch of the back and abdomen. There is a degree of distractibility. EKG without overt acute ischemia. CXR negative for acute cardiopulmonary process per my personal preliminary review/interpretation. WBC 11.2 K with neutrophilia but no left shift, nonspecific. H/H similar to prior. Platelets within normal limits. Chemistry without metabolic acidosis. Lactic acid 0.6, within normal limits. LFTs unremarkable. High-sensitivity troponin is undetectable. Procalcitonin is undetectable. hCG negative. UA suspicious for infection with positive nitrites and 1+ bacteria albeit with epithelial cells present. CT of the abdomen pelvis was performed and demonstrates 3 mm left-sided stone that has migrated from the left upper pole to the left UVJ. However no hydronephrosis is identified. Moderate stool within the rectosigmoid colon is noted. The patient was treated with IV fluid ration, IV APAP, Zofran, Toradol but the patient denied any improvement in her symptoms. IV morphine was ordered. Treatment for possible urinary infection initiated with Invanz given history of ESBL E. coli infection. Case was discussed with urology on-call, Dr. Treadwell. Appreciate consultation recommendations. No indication for intervention at this time however patient to remain n.p.o. after midnight in the event and intervention is needed. Case was discussed with Dr. Damian, [facility] hospitalist, who will evaluate the patient for admission. Further management per admitting team. Triage Nursing notes reviewed and agree them. Prior/external medical records reviewed Vital Signs: reviewed Differential diagnosis: Renal colic, UTI, appendicitis, diverticulitis, mesenteric ischemia, aortic pathology, infections, inflammatory bowel disease, PUD, biliary pathology, as well as other pathologies. ER treatment provided: See below. Diagnostics interpreted by me: ECG: Normal sinus rhythm, 93 bpm, no ectopy, no overt ST ovation or depression, QTc 425, QRS 84. Cardiac Monitoring: An order for continuous cardiac monitoring was placed and demonstrated normal sinus rhythm, 93 bpm, no ectopy. Laboratory studies: See below Imaging studies: See below Consultation(s): Dr. Treadwell, [place] urology. Dr. Damian, [place] Hospitalist HPI: The patient is a pleasant 29-year-old woman with a past medical history of nephrolithiasis, complicated UTI, history of gastric bypass, GERD, chronic anemia recent admission to this facility from 05/10-05/12 for complicated UTI with sepsis who presents to the emergency department via walk-in for evaluation of ongoing flank pain, lower abdominal pain, dysuria, and feverishness. Patient reports that she was referred to the emergency department by her primary care provider. Review of [facility] records demonstrate the patient was seen at [facility] on 05/[address] imaging. ROS: See above HPI for pertinent positives & negatives. A total of 10 systems reviewed and were otherwise negative. VITALS:See Below PHYSICAL EXAMINATION: GENERAL: Awake, alert, uncomfortable-appearing, in no distress HENT: Normocephalic, atraumatic. Oropharynx with dry mucous membranes. EYES: Normal conjunctiva. Sclera non-icteric. NECK: Supple. No nuchal rigidity. FROM. No JVD. RESPIRATORY: Clear to auscultation. CARDIAC: Tachycardic rate, normal rhythm. Extremities warm and well perfused. Pulses equal. ABDOMEN: Soft, non-distended. Exhibits pain response to light touch of the back and abdomen. There is a degree of distractibility. MUSCULOSKELETAL: Chest examination reveals no tenderness. The back is symmetrical on inspection without obvious abnormality. No joint edema. LOWER EXTREMITIES: Calves are equal size bilaterally and non-tender. No edema. No discoloration. NEURO: Normal sensorium. No sensory or motor deficits noted. SKIN: No rash or jaundice noted. 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 VRE (vancomycin resistant enterococcus) culture positive Class 3 obesity Hypokalemia (Acute) Acute flank pain (Acute) UTI (urinary tract infection) (Acute) Pyelonephritis (Acute) History of renal calculi (Acute) Acute left flank pain (Acute) Hyperparathyroidism (Acute) First trimester (Acute) Previous gastric bypass affecting in first trimester, antepartum Encounter for anatomic survey Encounter for supervision of normal in multigravida UTI (urinary tract infection) (Acute) Renal colic on right side (Acute) Depression Medical History Nephrolithiasis Ovarian cyst Kidney stones GERD (gastroesophageal reflux disease) Surgical History Hx of cystoscopy w/ stent-04/2022 [facility] History of Otilia-en-Y gastric bypass 10/04/[place] [facility] [place] of cholecystectomy 06/10/19: Grade 1 view, MAC 3, ETT 7.5 atraumatic x 1. History of colonoscopy History of appendectomy 03/16/19: Grade 2 view, Veloz 2, ETT 7.5 atraumatic x 1. History of wisdom tooth extraction PONV (postoperative nausea and vomiting) Status post laparoscopic procedure REMOVED uterine surface endometriotic tissue Previous section 02/20/2017 Family History Uncle Diabetes Mother Kidney stones Breast cancer Hx of cholecystectomy Hypertension Father Hx of cholecystectomy Other No family history of adverse response to anesthesia Denies family history of Ovarian cancer Prostate cancer Colorectal cancer Social History Smoking Status: Never smoker Second Hand Exposure: No; Do You Dip or Chew Tobacco: No; Tobacco Cessation Education Requested by Patient: No Hx Alcohol Use: No Hx Substance Use: No Preferred Language: Citizen [place] Communication Ability: Effective Lounge Car Attendant Required: No Beliefs That Will Affect Care: None marital status: marital status details: Umberto gillespie ( [phone] Current Living Situation: Significant Other Current Living Situation Comment: FOB and 7 year old son current occupational status: employed 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 Other Information That Helps Us Care for You: No Feels Safe at Home: Yes Safety Concerns: Feels Safe At This Time Assistive Devices: Glasses Assistive Devices Comment: glasses with patient Allergies Allergies Allergy/AdvReac Type Severity Reaction Status Date / Time sulfamethoxazole Allergy Intermediate HIVES Verified 05/08/24 18:38 trimethoprim Allergy Intermediate HIVES Verified 05/08/24 18:38 ertapenem Allergy Mild Rash Verified 05/10/24 23:11 Home Meds Home Medications Medication Instructions Recorded Confirmed buspirone 10 mg tablet 10 mg PO HS 03/09/23 05/16/24 sertraline 100 mg tablet 100 mg PO DAILY 03/09/23 05/16/24 omeprazole 20 mg capsule,delayed 20 mg PO DAILY 12/24/23 05/16/24 release albuterol sulfate 90 mcg/actuation 1 puff inhalation Q6H PRN 05/08/24 05/16/24 aerosol inhaler (Ventolin HFA) SOB/Wheezing gabapentin 300 mg capsule 600 mg PO HS 05/08/24 05/16/24 rizatriptan 5 mg tablet 5 mg PO DAILY PRN Migraine Headache 05/08/24 05/16/24 nitrofurantoin 100 mg PO BID 05/16/24 05/16/24 monohydrate/macrocrystals 100 mg capsule Previous Rx's Medication Instructions Recorded norelgestromin 150 mcg-e.estradiol 1 patch transdermal Q7D #3 ea 02/29/24 35 mcg/24 hr weekly transderm patch (Xulane) ondansetron 4 mg disintegrating 4 mg PO Q8H PRN nausea and 05/08/24 tablet vomiting #30 tabs ciprofloxacin HCl 500 mg tablet 500 mg PO BID 7 days #14 tabs 05/12/24 Results & Data (ED) Vital Signs Vital Signs - 24 hr 05/16/24 14:36 05/16/24 16:45 05/16/24 16:45 Temperature 36.7 C Temperature Source Temporal Artery Scan Pulse Rate 100 H Pulse Rate [Apical] 96 H Pulse Rhythm Regular Pulse Strength Normal Pulse Strength [Apical] Normal Respiratory Rate 20 19 Respiratory Effort / Characteristics Non-Labored Spontaneous Non-Labored Spontaneous Respiratory Depth Normal Normal Respiratory Pattern Regular Blood Pressure 159/105 H Blood Pressure [Right Arm] 150/107 H Blood Pressure Mean 123 Blood Pressure Mean [Right Arm] 121 Blood Pressure Position Sitting Pulse Oximetry 97 100 100 Oxygen Delivery Method Room Air Room Air Room Air Sepsis Recent Fever Within 48 Hours No Sepsis New/Unexplained Change in Mental Status N/A Sepsis Action Taken by Nursing No Action Required 05/16/24 16:51 05/16/24 18:51 Temperature 36.8 C Temperature Source Oral Pulse Rate 92 H Pulse Rate [Apical] 89 Pulse Rhythm Pulse Strength Pulse Strength [Apical] Normal Respiratory Rate 18 Respiratory Effort / Characteristics Non-Labored Spontaneous Respiratory Depth Normal Respiratory Pattern Regular Blood Pressure Blood Pressure [Right Arm] 118/91 Blood Pressure Mean Blood Pressure Mean [Right Arm] 100 Blood Pressure Position Pulse Oximetry 98 Oxygen Delivery Method Room Air Sepsis Recent Fever Within 48 Hours Sepsis New/Unexplained Change in Mental Status Sepsis Action Taken by Nursing Laboratory Data Attestation: I reviewed the patient's lab results. 05/16/24 14:58 05/16/24 14:58 Lab Results 05/16/24 05/16/24 Range/Units 14:58 17:25 WBC 11.28 H (4.8-10.8) K/ul RBC 3.84 L (4.20-5.40) M/uL Hgb 11.2 L (12.0-16.0) g/dl Hct 34.4 L (37.0-47.0) % MCV 89.6 (80.0-100.0) fL MCH 29.2 (25.0-34.0) pg MCHC 32.6 (32.0-36.0) g/dL RDW Std Deviation 45.7 (36.4-46.3) fL RDW Coeff of Coral 14.3 (11.5-14.5) % Plt Count 393 (130-400) K/uL MPV 9.2 L (9.4-12.4) fL Immature Gran % (Auto) 0.5 % Neut % (Auto) 64.7 % Lymph % (Auto) 25.5 % Titus % (Auto) 7.9 % Eos % (Auto) 0.4 % Baso % (Auto) 1.0 % Neut # (Auto) 7.30 H (1.40-6.50) K/uL Lymph # (Auto) 2.88 (1.20-3.40) K/uL Titus # (Auto) 0.89 H (0.11-0.59) K/uL Eos # (Auto) 0.04 (0.00-0.50) K/uL Baso # (Auto) 0.11 (0.00-0.20) K/uL Immature Gran # (Auto) 0.06 (0.01-0.20) K/uL PT 11.4 (9.0-12.0) Seconds INR 1.1 (0.9-1.1) APTT 22 (21-31) Seconds PTT Ratio 0.8 Sodium 138 (136-145) mmol/L Potassium 3.6 (3.5-5.1) mmol/L Chloride 105 (98-107) mmol/L Carbon Dioxide 26 (21-32) mmol/L Anion Gap 7 (3-11) BUN 13 (6-23) mg/dl Creatinine 0.95 (0.6-1.2) mg/dl Est Cr Clr Drug Dosing 95.1 ml/min eGFR 82.15 BUN/Creatinine Ratio 13.7 (10-20) Glucose 97 (70-99(Fasting)) mg/dl Lactate 0.6 (0.4-2.0) mmol/L Calcium 8.8 (8.6-10.3) mg/dl Magnesium 2.0 (1.7-2.4) mg/dl Total Bilirubin 0.4 (0.2-1.0) mg/dl AST 13 (13-39) U/L ALT 10 (7-52) U/L Alkaline Phosphatase 47 (34-104) U/L Troponin I High Sens < 2.3 (0-14) pg/ml Total Protein 6.6 (6.0-8.3) gm/dl Albumin 4.3 (3.4-5.0) gm/dl Globulin 2.3 L (2.5-4.0) gm/dl Albumin/Globulin Ratio 1.9 (0.9-2) Procalcitonin < 0.02 (0-0.5) ng/ml HCG, Qual Negative (Negative) Administered Medications Acetaminophen (Acetaminophen 325 Mg Tab) 650 mg PO Q4H PRN PRN Reason: pain/fever Stop: 06/15/24 19:01 Last Admin: 05/16/24 22:59 Dose: 650 mg Documented By: FE Buspirone HCl (Buspirone 5 Mg Tab) 10 mg PO [facility] Stop: 06/15/24 20:59 Last Admin: 05/16/24 21:21 Dose: 10 mg Documented By: FE Docusate Sodium (Docusate Sodium 100 Mg Cap) 100 mg PO BID [facility] Stop: 06/15/24 20:59 Last Admin: 05/16/24 21:21 Dose: 100 mg Documented By: MPS Gabapentin (Gabapentin 300 Mg Cap) 600 mg PO [facility] Stop: 06/15/24 20:59 Last Admin: 05/16/24 21:21 Dose: 600 mg Documented By: MPS Hydromorphone HCl (Hydromorphone Inj 0.5 Mg/0.5 Ml Syr) 0.5 mg IV Q6H PRN PRN Reason: Severe Pain (Scale 7, 8, 9,10) Stop: 05/30/24 19:00 Last Admin: 05/16/24 21:22 Dose: 0.5 mg Documented By: FE Ondansetron HCl (Ondansetron 4 Mg Od Tab) 4 mg PO Q8H PRN PRN Reason: nausea and vomiting Stop: 06/15/24 19:12 Last Admin: 05/16/24 20:24 Dose: 4 mg Documented By: FILIPE Oxycodone HCl (Oxycodone Hcl Ir 5 Mg Tab (Immediate Release)) 5 mg PO Q6H PRN PRN Reason: Moderate Pain (Scale 4, 5, 6) Stop: 05/30/24 19:00 Last Admin: 05/16/24 20:24 Dose: 5 mg Documented By: FILIPE Discontinued Medications Hydromorphone HCl (Hydromorphone Inj 0.5 Mg/0.5 Ml Syr) 0.5 mg IV NOW STA Stop: 05/17/24 01:49 Last Admin: 05/17/24 01:57 Dose: 0.5 mg Documented By: FE Sodium Chloride (Nss) 1,000 mls @ 999 mls/hr IV .Q1H1M ONE Stop: 05/16/24 17:56 Last Infusion: 05/16/24 21:29 Dose: Infused Documented By: Admin: 05/16/24 17:24 Dose: 999 mls/hr Documented By: DARIAN Acetaminophen (Ofirmev) 1,000 mg in 100 mls @ 400 mls/hr IV NOW STA Stop: 05/16/24 17:10 Last Infusion: 05/16/24 20:00 Dose: Infused Documented By: Admin: 05/16/24 17:24 Dose: 400 mls/hr Documented By: DARIAN Ertapenem (Invanz 1000mg) 1,000 mg in 10 mls @ 2 mls/min IV NOW STA Stop: 05/16/24 18:27 Last Admin: 05/16/24 18:48 Dose: 2 mls/min Documented By: DARIAN Sodium Chloride (Nss) 500 mls @ 125 mls/hr IV .Q4H CHELSEY Stop: 05/16/24 22:29 Last Infusion: 05/17/24 01:42 Dose: Infused Documented By: Admin: 05/16/24 21:23 Dose: 125 mls/hr Documented By: FE Ioversol (Optiray 320 100ml) 95 ml IV ONCE ONE Stop: 05/16/24 17:12 Last Admin: 05/16/24 17:12 Dose: 95 ml Documented By: RONNY Ketorolac Tromethamine (Ketorolac Tromethamine 15 Mg/Ml Vial) 15 mg IV NOW STA Stop: 05/16/24 17:06 Last Admin: 05/16/24 17:31 Dose: 15 mg Documented By: DARIAN Ketorolac Tromethamine (Ketorolac 30 Mg/Ml Vial) 30 mg IV NOW ONE Stop: 05/16/24 23:21 Last Admin: 05/16/24 23:27 Dose: 30 mg Documented By: FE Morphine Sulfate (Morphine Sulfate 4 Mg/Ml 1 Ml Carp\Vial) 4 mg IV NOW STA Stop: 05/16/24 18:24 Last Admin: 05/16/24 18:47 Dose: 4 mg Documented By: DARIAN Ondansetron HCl (Ondansetron Inj 2 Mg/Ml 2 Ml Vial) 4 mg IV NOW STA Stop: 05/16/24 17:06 Last Admin: 05/16/24 17:29 Dose: 4 mg Documented By: DARIAN Ondansetron HCl (Ondansetron 4 Mg Od Tab) Confirm Administered Dose 4 mg .ROUTE .STK-MED ONE Stop: 05/16/24 20:19 Last Admin: 05/16/24 21:18 Dose: Not Given Documented By: FE Imaging Data Radiologist's Impression: Chest X-Ray 05/16/24 14:38 XR chest 1V not portable CLINICAL HISTORY: Sepsis TECHNIQUE: Single frontal radiograph of the chest was obtained. Comparison: Comparison is made to chest radiographs 12/29/2023 FINDINGS: No lines and tubes are seen. The cardiomediastinal silhouette is normal. The lungs are clear. No evidence of pleural effusion or pneumothorax. IMPRESSION: No acute abnormalities and in particular no radiographic evidence of pneumonia. ACT 112: Negative or not required by law. Electronically signed by: Alexander Gutierrez M.D. 05/16/2024 3:33 PM Abdomen/Pelvis CT 05/16/24 16:56 EXAM: CT Abdomen and Pelvis With Intravenous Contrast INDICATION: Abdominal pain. Leukocytosis. Recent urosepsis. TECHNIQUE: Axial computed tomography images of the abdomen and pelvis with intravenous contrast. Sagittal and coronal reformatted images were created and reviewed. This CT exam was performed using one or more of the following dose reduction techniques: automated exposure control, adjustment of the mA and/or kV according to patient size, and/or use of iterative reconstruction technique. CONTRAST: 95ml of Optiray 320 was administered intravenously. COMPARISON: 05/08/2024 FINDINGS: Limitations: None. Lung bases: No abnormality noted. Pleural space: No visualized pleural effusion or pneumothorax. Heart: No abnormality noted. Mediastinum: No abnormality noted. ABDOMEN: Liver: No abnormality noted. Gallbladder and bile ducts: Cholecystectomy. No ductal dilation or stone noted. Pancreas: Homogeneous enhancement. No mass, inflammation or ductal dilation. Spleen: No significant abnormality noted. Adrenals: No significant abnormality noted. Kidneys and ureters: A 3 mm stone has migrated from the left upper pole to the left UVJ. No hydronephrosis. Stable hyperdense cyst in the apex of the right kidney. Punctate nonobstructing left kidney stone unchanged. No hydronephrosis. No urinary gas. No perinephric fluid. Stomach and bowel: Postoperative changes gastric bypass. Moderate stool in the colon most copious in the rectosigmoid. Distal rectum collapsed and not optimally assessed. There is no intestinal obstruction, thickening or inflammatory process. PELVIS: Appendix: No findings to suggest acute appendicitis. Bladder: No filling defects to suggest mass or large stone. No inflammation. Reproductive: Benign-appearing right ovarian cyst measures 2.5 x 2.0 cm. No further assessment required. ABDOMEN and PELVIS: Intraperitoneal space: No free air. No significant fluid collection. Bones/joints: No acute changes. Soft tissues: Umbilical hernia containing fat. Vasculature: No abdominal aortic aneurysm. Lymph nodes: No pathologically enlarged lymph nodes. IMPRESSION: 1. A 3 mm stone has migrated from the left upper pole to the left UVJ. No hydronephrosis. 2. Moderate stool most copious in the redundant rectosigmoid. No obstruction. ACT 112: Negative or not required by law. Electronically signed by Radha Nick 05-16-2024 5:31 PM Discharge Plan Visit Data Chief Complaint: Infection Stated Complaint: FLANK PAIN, FEVER, CHILLS. HAD SEPSIS ED Provider: Matt Wang Discharge Problem: Ureterolithiasis, UTI (urinary tract infection), Left flank pain Patient Disposition: Admitted As Inpatient Discharge Instructions Interventions: ED Discharge Assessment Last Done: 05/16/24 20:20 Discharge Problem: UTI (urinary tract infection) Qualifiers: Urinary tract infection type: acute cystitis Hematuria presence: without hematuria Qualified Code(s): N30.00 - Acute cystitis without hematuria
[2024-05-16] MEDS: MoRPHine SULFATE 4 MG/ML 1 ML CARP\\VIAL IV STA (18:47)
[2024-05-16] MEDS: ERTAPENEM 1000MG 1,000 MG/10 ML SYR IV STA (18:48)
[2024-05-16] MEDS ORDERED: POLYETHYLENE (MIRALAX) 17 GM PACK PO PRN (19:02)
[2024-05-16] MEDS ORDERED: MAGNESIUM HYDROXIDE SUSP 30 ML UDC PO PRN (19:02)
[2024-05-16] MEDS ORDERED: ALUMINUM/MAGNESIUM SUSP 30 ML UDC PO PRN (19:02)
--- NOTE | 2024-05-16 19:06 | History & Physical Report ---
Date of Service May 16, 2024 Assessment & Plan (1) Pyelonephritis: Plan Possible pyelonephritis History of recurrent UTIs Patient was recently discharged on ciprofloxacin for UTI, came in with recurrence of fever/pain and burning with passing urine/bilateral flank pain since about last 2 days. Patient did see PCP via video conferencing today for failure of outpatient antibiotic for UTI who recommended she be evaluated in the ED. Admitting CTAP with 3 mm stone in the left UPJ. Emergency physician reached out to urology on-call, n.p.o. midnight, possible stenting in AM. Follow admitting urine culture and blood culture. Patient received ertapenem in the ED, no allergic reaction this time. Patient reports getting ertapenem in the past with no reaction. Patient aware she had minor skin rash with ertapenem during last admission, she is okay to try ertapenem at this time and has been made aware to report immediately if with any allergic reaction. Consider infectious disease consult once with more information on cultures. c/w pain mx, continue bowel regimen. Other chronic medical conditions: GERD, mood disorder --- continue with/resume home meds as when able. DVT prophylaxis: SCDs Full code History of Present Illness Chief Complaint: b/l flank pain, PCP referral Primary Care Provider: Dimas Doty DO 29-year-old lady with PMH of gestational HTN, gastric bypass, GERD, urolithiasi s, recurrent UTIs, ESBL UTI, VRE UTI, hyperparathyroidism, chronic anemia, mood disorder presented to the ED at referral of PCP office for failure to control UTI as an outpatient. Patient was recently admitted for urinary tract infection, discharged on ciprofloxacin, started getting fever and bilateral flank pain since last 2 days ago [employer], had PCP visit via videoconference today who recommended she be evaluated in the ED and hence patient presented to the ED. Patient reports having fever since last 2 days, worsening bilateral flank pain, left greater than right, pain and burning while passing urine, some nausea and vomiting due to pain per patient. Patient denies diarrhea, sore throat, cough, chest pain. Medications reviewed with the patient in detail. Plan of care discussed with the patient in detail. Full code Allergies Allergy/AdvReac Type Severity Reaction Status Date / Time sulfamethoxazole Allergy Intermediate HIVES Verified 05/08/24 18:38 trimethoprim Allergy Intermediate HIVES Verified 05/08/24 18:38 ertapenem Allergy Mild Rash Verified 05/10/24 23:11 Home Medications Medication Instructions Recorded Confirmed Type buspirone 10 mg tablet 10 mg PO HS 03/09/23 05/16/24 History sertraline 100 mg tablet 100 mg PO DAILY 03/09/23 05/16/24 History omeprazole 20 mg capsule,delayed 20 mg PO DAILY 12/24/23 05/16/24 History release norelgestromin 150 mcg-e.estradiol 1 patch transdermal Q7D #3 ea 02/29/24 05/16/24 Rx 35 mcg/24 hr weekly transderm patch (Xulane) albuterol sulfate 90 mcg/actuation 1 puff inhalation Q6H PRN 05/08/24 05/16/24 History aerosol inhaler (Ventolin HFA) SOB/Wheezing gabapentin 300 mg capsule 600 mg PO HS 05/08/24 05/16/24 History ondansetron 4 mg disintegrating 4 mg PO Q8H PRN nausea and 05/08/24 05/16/24 Rx tablet vomiting #30 tabs rizatriptan 5 mg tablet 5 mg PO DAILY PRN Migraine Headache 05/08/24 05/16/24 History ciprofloxacin HCl 500 mg tablet 500 mg PO BID 7 days #14 tabs 05/12/24 05/16/24 Rx nitrofurantoin 100 mg PO BID 05/16/24 05/16/24 History monohydrate/macrocrystals 100 mg capsule Past Med/Surg History Problem List (Updated 05/11/24 @ 10:28 by Pastor Ching MD) Sepsis Pyelonephritis (Acute) Hematuria (Acute) Flank pain (Acute) Complicated UTI (urinary tract infection) History of obstruction of ureter (Acute) Vomiting (Acute) Pyelonephritis (Acute) Acute left flank pain (Acute) Preeclampsia in period Headache (Acute) Postoperative pain S/P section Ureteral stent present Encounter for assessment Acute right flank pain (Acute) (Acute) 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 VRE (vancomycin resistant enterococcus) culture positive Class 3 obesity Hypokalemia (Acute) Acute flank pain (Acute) UTI (urinary tract infection) (Acute) Pyelonephritis (Acute) History of renal calculi (Acute) Acute left flank pain (Acute) Hyperparathyroidism (Acute) First trimester (Acute) Previous gastric bypass affecting in first trimester, antepartum Encounter for anatomic survey Encounter for supervision of normal in multigravida UTI (urinary tract infection) (Acute) Renal colic on right side (Acute) Nephrolithiasis (Acute) Depression Medical History Ovarian cyst Kidney stones GERD (gastroesophageal reflux disease) Surgical History Hx of cystoscopy w/ stent-04/2022 [facility] History of Otilia-en-Y gastric bypass 10/04/21 [facility] [place] of cholecystectomy 06/10/19: Grade 1 view, MAC 3, ETT 7.5 atraumatic x 1. History of colonoscopy History of appendectomy 03/16/19: Grade 2 view, Veloz 2, ETT 7.5 atraumatic x 1. History of wisdom tooth extraction PONV (postoperative nausea and vomiting) Status post laparoscopic procedure REMOVED uterine surface endometriotic tissue Previous section 02/20/2017 Family History Uncle Diabetes Mother Kidney stones Breast cancer Hx of cholecystectomy Hypertension Father Hx of cholecystectomy Other No family history of adverse response to anesthesia Denies family history of Ovarian cancer Prostate cancer Colorectal cancer Social History Smoking Status: Never smoker Second Hand Exposure: No; Do You Dip or Chew Tobacco: No; Hx Alcohol Use: No Hx Substance Use: No Preferred Language: Armenian Communication Ability: Effective [facility] Required: No Beliefs That Will Affect Care: None marital status: marital status details: Umberto gillespie ( 28) [phone] Current Living Situation: Significant Other Current Living Situation Comment: FOB and 7 year old son current occupational status: employed 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 Physical Exam Physical Exam: GENERAL: Alert and oriented x3. NAD, on RA. HEENT: No pallor, no icterus. Pupils equal, round and reactive to light. Oral mucosa moist. NECK: No JVD, no neck masses. HEART: S1 and S2 heard. Regular rate and rhythm. No murmur, no gallop. RESPIRATORY SYSTEM: Normal AP diameter. No accessory muscle use. No wheezing, no crackles. ABDOMEN: Soft, bowel sounds present, b/l lumbar region tender, no distention. Lt > Rt flank tender. CENTRAL NERVOUS SYSTEM: No facial droop. Speech is clear. Obeys simple commands. Moves extremities. EXTREMITIES: No edema, no erythema seen. Results & Data Results & Data Vital Signs (Past 12 Hours) Vital Signs Temp Pulse Pulse Resp BP BP Pulse Ox 05/16/24 18:51 36.8 C 89 18 118/91 98 05/16/24 16:51 92 H 05/16/24 16:45 100 05/16/24 16:45 96 H 19 150/107 H 100 05/16/24 14:36 36.7 C 100 H 20 159/105 H 97 O2 Del Method 05/16/24 18:51 Room Air 05/16/24 16:51 05/16/24 16:45 Room Air 05/16/24 16:45 Room Air 05/16/24 14:36 Room Air
[2024-05-16] MEDS ORDERED: RIZATRIPTAN BENZOATE 10 MG TAB PO PRN (19:13)
[2024-05-16] MEDS ORDERED: ALBUTEROL HFA 8 GM INHALER INH PRN (19:13)
--- NOTE | 2024-05-16 19:52 | Urology Consultation ---
Date of Consultation May 16, 2024 Assessment & Plan (1) Nephrolithiasis: Patient has been admitted on the hospitalist service. From a urologic perspective we recommend the following: Appears of the patient has a urinary tract infection as she has been placed on broad-spectrum antibiotics in form of meropenem. These antibiotics should continue. Appropriate cultures have been sent and these culture should be followed for and antibiotics can be tailored based on these results. (As noted the patient does have a recent urinary tract infection on 05/10/2024 at which her culture showed E. coli which was resistant to ampicillin) Serial labs should be followed Analgesics to be provided Antiemetics to be provided After discussion with the patient she revealed that usually when she has kidney stone she requires cystoscopic intervention. I did discuss with my attending physician Dr. Treadwell and he notes that the most recent time patient had a cystoscopy with stent (in December of this year) she did not tolerate the stent well secondary to pain and had to be removed the following day. He does note it would be preferable to treat the patient's urinary tract infection with broad-spectrum antibiotics for at least 24 hours, at which time a cystoscopy can be considered and stone treatment can be performed at the same time. I did explain to the patient that we cannot treat her stone if we performed a cystoscopy this evening due to her underlying urinary tract infection that has not been adequately treated. She did express her understanding If the patient does become septic/decompensates from the standpoint sooner intervention may be required but is yet to be determined The patient should be made n.p.o. after midnight this evening Additional recommendations with forthcoming based on her clinical course as it unfolds History of Present Illness Reason for Consultation: Nephrolithiasis History of Present Illness This is a 29-year-old female with an extensive past urologic history. The patient says that she has had multiple stones and has had cystoscopies in the past secondary to nephrolithiasis. She does note that the most recent cystoscopy she had was in December of this year when on December 24 Dr. Treadwell performed a cystoscopy with bilateral ureteral stent placement and laser lithotripsy. The patient was most recently admitted to the hospital from May 10 of this year until May 12 of this year. She was admitted secondary to complicated urinary tract infection where urine culture was positive for E. coli and patient was ultimately discharged on oral Cipro. The patient presented to the emergency department today as she continues to suffer with urinary tract infection type symptoms. The patient says that she has been having fevers at home as well as nausea and vomiting. She reports that she is having bilateral flank pain. She notes that she has not been able to eat or drink anything today and has had no meaningful oral intake at all. Since arrival to hospital patient has had labs and imaging which independent reviewed. Chest x-ray showed no evidence of pneumonia. A CT scan of the abdomen pelvis showed the patient had no hydronephrosis however she did have a 3 mm stone in the left ureterovesical junction that appears to have migrated from the left upper pole of the left kidney when compared to previous CT scans. Labs included CBC white blood cell count was elevated 11.2. Her hemoglobin and hematocrit are 11.2 and 34.4. Platelet count was normal. Coagulation studies were normal. Chemistry profile showed sodium and potassium as well as BUN and creatinine were normal. Lactic acid level was not elevated at 0.6. A test was negative. Urinalysis was positive for nitrites. There is no leukocyte esterase or pyuria on the study but there was 1+ bacteria. At the time my interview the patient is resting comfortably bed she was no distress. Allergies Allergy/AdvReac Type Severity Reaction Status Date / Time sulfamethoxazole Allergy Intermediate HIVES Verified 05/08/24 18:38 trimethoprim Allergy Intermediate HIVES Verified 05/08/24 18:38 ertapenem Allergy Mild Rash Verified 05/10/24 23:11 Home Medications Medication Instructions Recorded Confirmed Type buspirone 10 mg tablet 10 mg PO HS 03/09/23 05/16/24 History sertraline 100 mg tablet 100 mg PO DAILY 03/09/23 05/16/24 History omeprazole 20 mg capsule,delayed 20 mg PO DAILY 12/24/23 05/16/24 History release norelgestromin 150 mcg-e.estradiol 1 patch transdermal Q7D #3 ea 02/29/24 05/16/24 Rx 35 mcg/24 hr weekly transderm patch (Xulane) albuterol sulfate 90 mcg/actuation 1 puff inhalation Q6H PRN 05/08/24 05/16/24 History aerosol inhaler (Ventolin HFA) SOB/Wheezing gabapentin 300 mg capsule 600 mg PO HS 05/08/24 05/16/24 History ondansetron 4 mg disintegrating 4 mg PO Q8H PRN nausea and 05/08/24 05/16/24 Rx tablet vomiting #30 tabs rizatriptan 5 mg tablet 5 mg PO DAILY PRN Migraine Headache 05/08/24 05/16/24 History ciprofloxacin HCl 500 mg tablet 500 mg PO BID 7 days #14 tabs 05/12/24 05/16/24 Rx nitrofurantoin 100 mg PO BID 05/16/24 05/16/24 History monohydrate/macrocrystals 100 mg capsule Patient History Medical History (Updated 05/16/24 @ 19:50 by Severino Kiran PA-C) Nephrolithiasis Ovarian cyst Kidney stones GERD (gastroesophageal reflux disease) Surgical History Hx of cystoscopy w/ stent-04/2022 [facility] History of Otilia-en-Y gastric bypass 10/04/21 [facility] [place] History of cholecystectomy 06/10/19: Grade 1 view, MAC 3, ETT 7.5 atraumatic x 1. History of colonoscopy History of appendectomy 03/16/19: Grade 2 view, Veloz 2, ETT 7.5 atraumatic x 1. History of wisdom tooth extraction PONV (postoperative nausea and vomiting) Status post laparoscopic procedure REMOVED uterine surface endometriotic tissue Previous section 02/20/2017 Family History Uncle Diabetes Mother Kidney stones Breast cancer Hx of cholecystectomy Hypertension Father Hx of cholecystectomy Other No family history of adverse response to anesthesia Denies family history of Ovarian cancer Prostate cancer Colorectal cancer Social History Smoking Status: Never smoker Second Hand Exposure: No; Do You Dip or Chew Tobacco: No; Hx Alcohol Use: No Hx Substance Use: No Preferred Language: Tamazight Communication Ability: Effective Dealership Manager Required: No Beliefs That Will Affect Care: None marital status: marital status details: Umberto Cordero jose miguel ( 28) [phone] Current Living Situation: Significant Other Current Living Situation Comment: FOB and 7 year old son current occupational status: 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 There is no tenderness with palpation Musculoskeletal: No calf tenderness Skin: no rashes Neurologic: moves all extremities Psychiatric: A+Ox3, euthymic affect Genitourinary: CVA tenderness noted with percussion on the left; minimal to slight CVA tenderness with percussion on the right Results & Data Vital Signs (Past 12 Hours) Vital Signs Temp Pulse Pulse Resp BP BP Pulse Ox 05/16/24 18:51 36.8 C 89 18 118/91 98 05/16/24 16:51 92 H 05/16/24 16:45 100 05/16/24 16:45 96 H 19 150/107 H 100 05/16/24 14:36 36.7 C 100 H 20 159/105 H 97 O2 Del Method 05/16/24 18:51 Room Air 05/16/24 16:51 05/16/24 16:45 Room Air 05/16/24 16:45 Room Air 05/16/24 14:36 Room Air PG Care Time/CCT Total # of Minutes Spent Total Time Spent with Patient: Total time spent is greater than 50% in coordination of care (as documented) at patient's floor/unit and/or counseling patient: Coding Level of Care Code 87246 IN/OBS CONSULT LVL 5,80M Diagnoses Nephrolithiasis N20.0
[2024-05-16] MEDS: oxyCODONE HCL IR 5 MG TAB (IMMEDIATE RELEASE) PO PRN (20:24)
[2024-05-16] MEDS: ONDANSETRON 4 MG OD TAB PO PRN (20:24)
[2024-05-16] MEDS: ONDANSETRON 4 MG OD TAB ONE (21:18)
[2024-05-16] MEDS: DOCUSATE SODIUM 100 MG CAP PO SCH (21:21)
[2024-05-16] MEDS: busPIRone 5 MG TAB PO SCH (21:21)
[2024-05-16] MEDS: GABAPENTIN 300 MG CAP PO SCH (21:21)
[2024-05-16] MEDS: HYDROmorphone INJ 0.5 MG/0.5 ML SYR IV PRN (21:22)
[2024-05-16] MEDS: SODIUM CHLORIDE 0.9% 500 ML IV SCH (21:23)
[2024-05-16] MEDS: ACETAMINOPHEN 325 MG TAB PO PRN (22:59)
[2024-05-16] MEDS: KETOROLAC 30 MG/ML VIAL IV ONE (23:27)
[2024-05-17] MEDS: HYDROmorphone INJ 0.5 MG/0.5 ML SYR IV STA ×2 (01:57→20:36)
--- NOTE | 2024-05-17 06:54 | Hospitalist Progress Note ---
Date of Service May 17, 2024 Assessment & Plan (1) Pyelonephritis: Plan Left ureteral stone, hx of kidney stones History of recurrent UTIs Poss. pyelonephritis Patient was recently discharged on ciprofloxacin for UTI, was feeling well, but now comes back d/t severe flank pain, and found to have ureteral stone. Pt has hx of kidney stones and is well known to urology service. Admitting CT A/P with 3 mm stone in the left UPJ. Emergency physician reached out to urology on-call Per urology - plan for cystoscopy and ureteral stone placement today (05/17/24) Follow admitting urine culture and blood culture. Patient received ertapenem in the ED, no allergic reaction this time. Patient aware she had minor skin rash with ertapenem during last admission, she is okay to try ertapenem at this time and has been made aware to report immediately if with any allergic reaction. Consider infectious disease consult once with more information on cultures. c/w pain mx, continue bowel regimen. Other chronic medical conditions: GERD, mood disorder --- continue with/resume home meds as when able. DVT prophylaxis: SCDs Full code Admission and Anticipated Discharge Date Admission Date: May 16, 2024 Subjective Pt seen in follow up of UTI/ poss. pyelonephritis in the setting of renal stones Last ucultx posit. for E.coli sensitive to cipro and pt discharged home on cipro This time CT AP showing 3 mm ureteral stone Kylee by urology - plan for cystoscopy, ureteral stent placement Pt is currently sitting up in bed in NAD Continues to have left flank pain Says she felt well after discharge initially, then later she had a severe kidney stone pain, developed n/v Review of Systems Review of Systems: All systems reviewed & are unremarkable except as noted in Subjective Physical Exam Physical Exam: GENERAL: Alert and oriented x3. NAD, on RA. HEENT: NC/AT. EOMI NECK: No JVD, no neck masses. HEART: rrr, No murmur RESPIRATORY SYSTEM: Normal AP diameter. No accessory muscle use. No wheezing, no crackles. ABDOMEN: Soft, bowel sounds present, b/l lumbar region tender, no distention. L t > Rt flank tender. NEURO: awake, alert, oriented, No facial droop. Speech is clear. Moves extremities. EXTREMITIES: No edema, no erythema seen. moves extremities Results & Data Results & Data Vital Signs (Past 12 Hours) Vital Signs Temp Pulse Resp BP BP Pulse Ox O2 Del Method 05/16/24 20:45 36.8 C 93 H 16 151/98 H 98 Room Air 05/16/24 20:00 97 H 20 142/111 H 97 Room Air Laboratory Results 05/17/24 05/16/24 05/16/24 Range/Units 08:09 Unknown 17:25 WBC 4.90 D (4.8-10.8) K/ul RBC 3.59 L (4.20-5.40) M/uL Hgb 10.5 L (12.0-16.0) g/dl Hct 32.4 L (37.0-47.0) % MCV 90.3 (80.0-100.0) fL MCH 29.2 (25.0-34.0) pg MCHC 32.4 (32.0-36.0) g/dL RDW Std Deviation 46.5 H (36.4-46.3) fL RDW Coeff of Coral 14.2 (11.5-14.5) % Plt Count 300 (130-400) K/uL MPV 9.5 (9.4-12.4) fL PT (9.0-12.0) Seconds INR (0.9-1.1) APTT (21-31) Seconds PTT Ratio Sodium 141 (136-145) mmol/L Potassium 3.8 (3.5-5.1) mmol/L Chloride 109 H (98-107) mmol/L Carbon Dioxide 26 (21-32) mmol/L Anion Gap 6 (3-11) BUN 10 (6-23) mg/dl Creatinine 0.53 L D (0.6-1.2) mg/dl Est Cr Clr Drug Dosing 170.9 ml/min eGFR 126.72 BUN/Creatinine Ratio 18.9 (10-20) Glucose 83 (70-99(Fasting)) mg/dl Lactate 0.6 (0.4-2.0) mmol/L Calcium 8.6 (8.6-10.3) mg/dl Phosphorus 4.2 (2.5-4.9) mg/dl Magnesium 1.8 (1.7-2.4) mg/dl HCG, Qual (Negative) Urine Color Yellow Urine Appearance Clear (Clear) Urine pH 6.5 (4.5-7.5) Ur Specific [place] 1.015 (1.000-1.030) Urine Protein Negative (Negative) Urine Glucose (UA) Negative (Negative) Urine Ketones Negative (Negative) Urine Blood Trace-intact H (Negative) Urine Nitrite Positive A (Negative) Urine Bilirubin Negative (Negative) Urine Urobilinogen Negative (Negative) Ur Leukocyte Esterase Negative (Negative) Urine RBC 0-2 (0-2) /hpf Urine WBC 0-5 (0-5) /hpf Ur Epithelial Cells >20 H (0-2) /hpf Urine Bacteria 1+ H (None Seen) 05/16/24 Range/Units 14:58 WBC (4.8-10.8) K/ul RBC (4.20-5.40) M/uL Hgb (12.0-16.0) g/dl Hct (37.0-47.0) % MCV (80.0-100.0) fL MCH (25.0-34.0) pg MCHC (32.0-36.0) g/dL RDW Std Deviation (36.4-46.3) fL RDW Coeff of Coral (11.5-14.5) % Plt Count (130-400) K/uL MPV (9.4-12.4) fL PT 11.4 (9.0-12.0) Seconds INR 1.1 (0.9-1.1) APTT 22 (21-31) Seconds PTT Ratio 0.8 Sodium (136-145) mmol/L Potassium (3.5-5.1) mmol/L Chloride (98-107) mmol/L Carbon Dioxide (21-32) mmol/L Anion Gap (3-11) BUN (6-23) mg/dl Creatinine (0.6-1.2) mg/dl Est Cr Clr Drug Dosing ml/min eGFR BUN/Creatinine Ratio (10-20) Glucose (70-99(Fasting)) mg/dl Lactate (0.4-2.0) mmol/L Calcium (8.6-10.3) mg/dl Phosphorus (2.5-4.9) mg/dl Magnesium (1.7-2.4) mg/dl HCG, Qual Negative (Negative) Urine Color Urine Appearance (Clear) Urine pH (4.5-7.5) Ur Specific [place] (1.000-1.030) Urine Protein (Negative) Urine Glucose (UA) (Negative) Urine Ketones (Negative) Urine Blood (Negative) Urine Nitrite (Negative) Urine Bilirubin (Negative) Urine Urobilinogen (Negative) Ur Leukocyte Esterase (Negative) Urine RBC (0-2) /hpf Urine WBC (0-5) /hpf Ur Epithelial Cells (0-2) /hpf Urine Bacteria (None Seen) Medications Administered Current Inpatient Medications Acetaminophen (Acetaminophen 325 Mg Tab) 650 mg PO Q4H PRN PRN Reason: pain/fever Stop: 06/15/24 19:01 Last Admin: 05/16/24 22:59 Dose: 650 mg Al Hydrox/Mg Hydrox/Simethicone (Aluminum/Magnesium Susp 30 Ml Udc) 30 ml PO Q6H PRN PRN Reason: Dyspepsia Stop: 06/15/24 19:01 Albuterol (Albuterol Hfa 8 Gm Inhaler) 1 puffs INH Q6R PRN PRN Reason: Shortness Of Breath Or Wheezing Stop: 06/15/24 19:12 Atropine Sulfate (Atropine Sulfate 0.1 Mg/Ml 10ml Syr) 0.5 mg IV Q1M PRN PRN Reason: PACU Use-HR<40 &/or Bradycardi Stop: 05/17/24 23:36 Buspirone HCl (Buspirone 5 Mg Tab) 10 mg PO HS [facility] Stop: 06/15/24 20:59 Last Admin: 05/16/24 21:21 Dose: 10 mg Docusate Sodium (Docusate Sodium 100 Mg Cap) 100 mg PO BID [facility] Stop: 06/15/24 20:59 Last Admin: 05/17/24 09:25 Dose: 100 mg Droperidol (Droperidol 5 Mg/2 Ml Vial) 0.625 mg IV ONCE PRN PRN Reason: PACU Use Only for Nausea Stop: 05/17/24 23:36 Ephedrine Sulfate (Ephedrine Sulfate 50 Mg/Ml Amp) 5 mg IV Q5M PRN PRN Reason: PACU Use Only-SBP<90 mmHg Stop: 05/17/24 23:36 Fentanyl Citrate (Fentanyl Citrate Pf 100 Mcg/2 Ml Vial) 25 mcg IV Q5M PRN PRN Reason: PACU Use Only-Pain Stop: 05/17/24 23:36 Gabapentin (Gabapentin 300 Mg Cap) 600 mg PO HS [facility] Stop: 06/15/24 20:59 Last Admin: 05/16/24 21:21 Dose: 600 mg Hydromorphone HCl (Hydromorphone Inj 0.5 Mg/0.5 Ml Syr) 0.5 mg IV Q6H PRN PRN Reason: Severe Pain (Scale 7, 8, 9,10) Stop: 05/30/24 19:00 Last Admin: 05/17/24 12:22 Dose: 0.5 mg Hydromorphone HCl (Hydromorphone Inj 1 Mg/Ml Syringe) 0.25 mg IV Q5M PRN PRN Reason: PACU Use Only-Pain Stop: 05/17/24 23:36 Hydromorphone HCl (Hydromorphone Inj 2 Mg/Ml Syr/Vial) 0.5 mg IV Q5M PRN PRN Reason: PACU Use Only-Pain Stop: 05/17/24 23:36 Ertapenem (Invanz 1000mg) 1,000 mg in 10 mls @ 2 mls/min IV Q24H [facility] Stop: 05/22/24 18:34 Lactobacillus Acidophilus (Advanced Probiotic 625 Mg Capsule) 1,250 mg PO DAILY [facility] Stop: 06/16/24 08:59 Last Admin: 05/17/24 09:19 Dose: 1,250 mg Magnesium Hydroxide (Magnesium Hydroxide Susp 30 Ml Udc) 30 ml PO Q6H PRN PRN Reason: Constipation Stop: 06/15/24 19:01 Ondansetron HCl (Ondansetron 4 Mg Od Tab) 4 mg PO Q8H PRN PRN Reason: nausea and vomiting Stop: 06/15/24 19:12 Last Admin: 05/16/24 20:24 Dose: 4 mg Ondansetron HCl (Ondansetron Inj 2 Mg/Ml 2 Ml Vial) 4 mg IV ONCE PRN PRN Reason: PACU Use Only-Nausea/Vomiting Stop: 05/17/24 23:36 Oxycodone HCl (Oxycodone Hcl Ir 5 Mg Tab (Immediate Release)) 5 mg PO Q6H PRN PRN Reason: Moderate Pain (Scale 4, 5, 6) Stop: 05/30/24 19:00 Last Admin: 12/10/24 14:47 Dose: 5 mg Pantoprazole Sodium (Pantoprazole 40 Mg Tab) 40 mg PO DAILY [facility] Stop: 06/16/24 08:59 Last Admin: 05/17/24 09:18 Dose: 40 mg Polyethylene Glycol (Polyethylene (Miralax) 17 Gm Pack) 17 gm PO DAILY PRN PRN Reason: Constipation Stop: 06/15/24 19:01 Rizatriptan Benzoate (Rizatriptan Benzoate 10 Mg Tab) 5 mg PO DAILY PRN PRN Reason: Migraine Headache Stop: 06/15/24 19:12 Sertraline HCl (Sertraline Hcl 100 Mg Tablet) 100 mg PO DAILY [facility] Stop: 06/16/24 08:59 Last Admin: 05/17/24 09:19 Dose: 100 mg
[2024-05-17] MEDS: PANTOprazole 40 MG TAB PO SCH (09:18)
[2024-05-17] MEDS: ADVANCED PROBIOTIC 625 MG CAPSULE PO SCH (09:19)
[2024-05-17] MEDS: SERTRALINE HCL 100 MG TABLET PO SCH (09:19)
[2024-05-17 09:32] LABS: Hematocrit (blood only) 32.4 % (37.0-47.0); Hemoglobin 10.5 g/dl (12.0-16.0); Mean Corpuscular Hemoglobin 29.2 pg (25.0-34.0); Mean Corpuscular Hgb Conc 32.4 g/dL (32.0-36.0); Mean Corpuscular Volume 90.3 fL (80.0-100.0); Mean Platelet Volume 9.5 fL (9.4-12.4); Platelet Count 300 K/uL (130-400); RDW Coefficient of Variation 14.2 % (11.5-14.5); RDW Standard Deviation 46.5 fL (36.4-46.3); Red Blood Count 3.59 M/uL (4.20-5.40)
[2024-05-17 09:48] LABS: BUN Creatinine Ratio 18.9 (10-20); Calcium 8.6 mg/dl (8.6-10.3); Creatinine Clr Calc Pharmacy 170.9 ml/min; Magnesium 1.8 mg/dl (1.7-2.4); Phosphorus 4.2 mg/dl (2.5-4.9); Potassium 3.8 mmol/L (3.5-5.1)
--- NOTE | 2024-05-17 10:09 | Urology Progress Note ---
Date of Service May 17, 2024 Assessment & Plan (1) Left ureteral stone: (2) Left flank pain: Plan 29yo female admitted with a left ureteral stone and concern for infection Patient afebrile with stable vitals at present Labs today show leukocytosis improved from 114.9 today and stable renal function Urine/blood cultures pending She continues to have pain and denies any stone passage We discussed acute stone management with cystoscopy, stent placement, possible stone treatment depending on findings. Ureteral stents were discussed as well as postoperative issues and pain management. She is aware a second procedure may be needed for stone treatment. Risks and benefits were discussed. All questions were answered. Will proceed to OR today for cystoscopy, left retrograde pyelogram, left ureteral stent placement, possible ureteroscopy, laser lithotripsy/stone treatment depending on findings. Risks and benefits to be reviewed with patient by Dr. De Souza. She is covered with IV Ertapenem. Keep NPO. Urology to follow. Admission and Anticipated Discharge Date Admission Date: May 16, 2024 Subjective Pt seen at bedside today Awake and resting in bed on arrival No acute distress Still with left sided pain Denies stone passage Has been NPO Review of Systems Constitutional: as per Subjective / HPI Genitourinary: as per Subjective / HPI Physical Exam Constitutional: no acute distress Respiratory: no respiratory distress and no labored breathing Neurologic: moves all extremities and awake Psychiatric: A+Ox3, euthymic affect Results & Data Vital Signs (Past 12 Hours) Vital Signs Temp Pulse Resp BP Pulse Ox O2 Del Method 05/17/24 07:59 36.6 C 85 16 126/84 98 Room Air PG Care Time/CCT Total # of Minutes Spent Total Time Spent with Patient: Total time spent is greater than 50% in coordination of care (as documented) at patient's floor/unit and/or counseling patient: Coding Level of Care Code 86236 SUB INP/OBS CARE 2/35MIN Diagnoses Left ureteral stone N20.1 Left flank pain R10.9
--- OUTSIDE RECORDS SUMMARY | 2024-05-17 10:34 | External Medical Summary ---
Author Name Unknown Address Unknown Organization K1F:LABORATORY [facility] - [address] [address] Laboratory Report Ordering Provider Test Date Status GABI BURRIS 05/15/2024 20:40:33 Final Observation Date Value Abnormality Reference (Units ) Status Lipase 05/15/2024 20:40:33 44 13-60 (U/L ) Final Performing Location LABORATORY [facility] - [address] [address]
--- OUTSIDE RECORDS SUMMARY | 2024-05-17 10:34 | External Medical Summary ---
Author Name Unknown Address Unknown Organization K1F:LABORATORY [facility] - [address] [address] Laboratory Report Ordering Provider Test Date Status GABI BURRIS 05/15/2024 20:40:33 Final Observation Date Value Abnormality Reference (Units ) Status SYNC LEUKOCYTES IN BLOOD BY AUTOMATED COUNT 05/15/2024 20:40:33 13.94 Above high normal 4.00-10.80 (K/uL) Final Segs 05/15/2024 20:40:33 92.9 Above high normal 40.0-75.0 (%) Final Lymphs % 05/15/2024 20:40:33 4.1 Below low normal 18.0-42.0 (%) Final Monos 05/15/2024 20:40:33 1.6 1.0-11.0 (%) Final Eosinophils 05/15/2024 20:40:33 0.4 0.0-6.0 (%) Final Basos 05/15/2024 20:40:33 0.6 0.0-2.0 (%) Final Immature Granulocyte, Percent 05/15/2024 20:40:33 0.4 0.0-2.0 (%) Final Absolute Segs 05/15/2024 20:40:33 12.95 Above high normal 1.80-7.70 (K/uL) Final Lymphs, absolute 05/15/2024 20:40:33 0.57 Below low normal 1.00-4.80 (K/ul) Final Monos, Abs 05/15/2024 20:40:33 0.23 0.00-1.10 (K/uL) Final Eos, Abs 05/15/2024 20:40:33 0.06 0.00-0.70 (K/uL) Final Basos, Abs 05/15/2024 20:40:33 0.08 0.00-0.20 (K/uL) Final Immature Granulocytes, Number 05/15/2024 20:40:33 0.05 0.00-0.20 (K/uL) Final Performing Location LABORATORY [facility] - [address] [address]
--- OUTSIDE RECORDS SUMMARY | 2024-05-17 10:34 | External Medical Summary ---
Author Name Unknown Address Unknown Organization K1F:LABORATORY [facility] - [address] [place] [address] Laboratory Report Ordering Provider Test Date Status GABI BURRIS 05/15/2024 20:40:33 Final Observation Date Value Abnormality Reference (Units ) Status BUN 05/15/2024 20:40:33 11 6-20 (mg/dL) Final Creatinine 05/15/2024 20:40:33 0.7 0.5-1.0 (mg/dL) Final Glomerular filtration rate/1.73 sq M.predicted [Volume Rate/Area] in Serum, Plasma or Blood by Creatinine-based formula (CKD-EPI) 05/15/2024 20:40:33 >90 >=60 (mL/min) Final eGFR is calculated based on the CKD-EPI 2020 equation. Sodium 05/15/2024 20:40:33 139 135-146 (m mol/L) Final Potassium 05/15/2024 20:40:33 3.8 3.5-5.1 (m mol/L) Final Cl 05/15/2024 20:40:33 102 98-107 (mm ol/L) Final CO2 05/15/2024 20:40:33 22 22-32 (mmo l/L) Final Anion gap 05/15/2024 20:40:33 15 7-15 (mmol /L) Final Glucose 05/15/2024 20:40:33 148 Above high normal 70 -120 (mg/dL) Final Albumin 05/15/2024 20:40:33 4.6 3.8-5.0 (g /dL) Final AST (Aspartate aminotransferase) 05/15/2024 20:40:33 17 10-35 (U/L) Fin al Alk Phos 05/15/2024 20:40:33 69 35-130 (U/ L) Final Bilirubin, Total 05/15/2024 20:40:33 0.3 <=1 .2 (mg/dL) Final Calcium 05/15/2024 20:40:33 10.0 8.4-10.2 ( mg/dL) Final Protein 05/15/2024 20:40:33 7.6 6.0-8.3 (g /dL) Final ALT (Alanine aminotransferase) 05/15/2024 20:40:33 13 10-35 (U/L) Nas greer Performing Location LABORATORY [facility] - [address] [place] [address] [place] [address]
--- OUTSIDE RECORDS SUMMARY | 2024-05-17 10:34 | External Medical Summary ---
Author Name Unknown Address Unknown Organization K1F:LABORATORY [facility] - [address] [address] Laboratory Report Ordering Provider Test Date Status GABI BURRIS 05/15/2024 20:41:17 Final Observation Date Value Abnormality Reference (Units ) Status Color of Urine by Auto 05/15/2024 20:41:17 Yellow Light Yellow, Yellow, Dark Yellow Final Clarity, Urine 05/15/2024 20:41:17 Slightly Cloudy Abnormal Clear Final Glucose [Mass/volume] in Urine by Automated test strip 05/15/2024 20:41:17 100 Abnormal Negative (mg/dL) Final Bilirubin.total [Presence] in Urine by Automated test strip 05/15/2024 20:41:17 Negative Negative Final Ketones [Mass/volume] in Urine by Automated test strip 05/15/2024 20:41:17 15 Abnormal Negative (mg/dL) Final Specific gravity, Urine 05/15/2024 20:41:17 1.023 1.003-1.030 Final Hemoglobin [Presence] in Urine by Automated test strip 05/15/2024 20:41:17 Negative Negative Final pH, Urine 05/15/2024 20:41:17 6.0 5.0-7.5 (Units) Final Protein [Mass/volume] in Urine by Automated test strip 05/15/2024 20:41:17 Negative Negative (mg/dL) Final Urobilinogen [Mass/volume] in Urine by Automated test strip 05/15/2024 20:41:17 1.0 0.2, 1.0 (mg/dL) Final Nitrite [Presence] in Urine by Automated test strip 05/15/2024 20:41:17 Negative Negative Final Leukocyte esterase [Presence] in Urine by Automated test strip 05/15/2024 20:41:17 Negative Negative Final RBC, Urine 05/15/2024 20:41:17 0-2 0-2 (/HPF) Final WBC, Urine 05/15/2024 20:41:17 0-2 0-2 (/HPF) Final Bacteria [#/area] in Urine sediment by Microscopy high power field 05/15/2024 20:41:17 0-25 0-25 (/HPF) Final Epithelial cells.squamous [#/area] in Urine sediment by Microscopy high power field 05/15/2024 20:41:17 Many Abnormal None (/HPF) Final Performing Location LABORATORY [facility] - [address] [place], [place] [address]kathya [place] [address]
--- OUTSIDE RECORDS SUMMARY | 2024-05-17 10:34 | External Medical Summary ---
Author Name Unknown Address Unknown Organization K1F:LABORATORY [facility] - [address] [address] Laboratory Report Ordering Provider Test Date Status GABI BURRIS 05/15/2024 20:40:33 Final Observation Date Value Abnormality Reference (Units ) Status WBC, Total 05/15/2024 20:40:33 13.94 Above high normal 4.00-10.80 (K/uL) Final RBC 05/15/2024 20:40:33 4.58 3.85-5.15 (M/uL) Final Hemoglobin 05/15/2024 20:40:33 13.2 12.0-15.3 (g/dL) Final HCT 05/15/2024 20:40:33 41.9 36.0-45.2 (%) Final MCV 05/15/2024 20:40:33 91.5 81.5-97.5 (fL) Final MCH 05/15/2024 20:40:33 28.8 27.0-34.0 (pg) Final MCHC 05/15/2024 20:40:33 31.5 32.0-36.0 (g/dL) Final RDW 05/15/2024 20:40:33 14.4 11.5-15.5 (%) Final Platelets 05/15/2024 20:40:33 449 Above high normal 140-400 (K/uL) Final MPV 05/15/2024 20:40:33 9.0 6.6-11.1 (fL) Final Nucleated erythrocytes/100 leukocytes [Ratio] in Blood by Automated count 05/15/2024 20:40:33 0 <=0 (/100 WBCs) Final Performing Location LABORATORY [facility] - [address] [address]
--- OUTSIDE RECORDS SUMMARY | 2024-05-17 10:34 | External Medical Summary | Summary of Care ---
Author Name Unknown Organization [facility] Address [address] [place] [address] Phone [phone] Care Team Providers Care Overlay Operator Name Role Phone JoanDimas gallegos Lorenza BELTRÁN Primary Care Provider [phone] Encounter Details Date Type Department Care Team (Late st Contact Info) Description 05/13/2024 Population Health External Data Unspecified Department Allergies Active Allergy Reactions Criticality Noted Date Comments Prochlorperazine Psych complications 06/12/2020 Probably dystonic reaction. The patient does tolerate Phenergan Morphine Hives Low 03/20/2019 Pt feels the rash may have been from tape at the IV site. Sulfamethoxazole Hives High 03/03/2021 Trimethoprim Hives High 05/02/2018 documented as of this encounter (statuses as of 05/13/2024) Medications Acetaminophen 325 MG Oral Capsule Take [...] for 2 days 30 Tablet 4 Active Amoxicillin-Pot Clavulanate 875-125 MG Oral Tablet [...] as of this encounter (statuses as of 05/13/2024) Active Problems Problem Noted Date Diagnosed Date [...] Menorrhagia with regular cycle 04/16/2021 [facility] OTHER*[id number] 01/24/2021 Gastroesophageal reflux disease with esophagitis 01/04/2019 Recurrent major depressive disorder, in full rem ission 01/04/2019 Irritable bowel syndrome wit h both constipation and diarrhea 01/04/2019 documented as of this encounter (statuses as of 05/13/2024) Resolved Problems Problem Noted Date Diagnosed Date [...] as of this encounter (statuses as of 05/13/2024) Immunizations Name Administration Dates Next Due COVID-19 mRNA, LNP-s, No Pre serve, 2-Dose Series (Undesk) 04/03/2021,06/26/2020,06/05/2020 DTaP Dipth/Tet/Acell Pertussis (Infanrix), Peds 01/06/2017,09/28/1997,09/18/1994,08/15,1993,1993 [...] Care Team (Late st Contact Info) Description 05/18/2024 1:40 PM EST Office Visit Family Practice [facility] [place] [address] [facility] [place] [address] Dimas Doty DO [address] [place] [address] Scheduled Procedures Name Priority Associated Diagnoses Date/Ti [...] Power of Attor gab? No Care Teams Overlay Operator Relationship Specialty Start Date End Date Dimas Doty DO [address] [place] [address] PCP - General Family Medicine 06/09/19 documented as of this encounter
--- OUTSIDE RECORDS SUMMARY | 2024-05-17 10:34 | External Medical Summary ---
Author Name Unknown Address Unknown Organization K1F:LABORATORY [facility] - [address] [place] [address] Laboratory Report Ordering Provider Test Date Status GABI BURRIS 05/15/2024 20:40:33 Final Less than 0.5 ng/mL: Low ris k for progression to sepsis. Review patients condition for localized infections.

0.5 to 2.0 ng/mL: Intermediate risk for progresion to sepsis. Review underlying conditions. Recommend repeat PCT after 6 hours has elapsed.

Greater than 2.0 ng/mL: high risk for progression to sepsis unless other causes are known. Observation Date Value Abnormality Reference (Units ) Status Procalcitonin [Mass/volume] in Serum or Plasma by Immunoassay 05/15/2024 20:40:33 <0.06 <0.10 (ng/mL) Final Performing Location LABORATORY [facility] - [address] [address]
--- OUTSIDE RECORDS SUMMARY | 2024-05-17 10:34 | External Medical Summary ---
Author Name Unknown Address Unknown Organization K1F:LABORATORY [facility] - [address] [address] Laboratory Report Ordering Provider Test Date Status GABI BURRIS 05/15/2024 20:40:33 Final Observation Date Value Abnormality Reference (Units ) Status Lactic Acid 05/15/2024 20:40:33 2.1 Above high normal 0.4-2.0 (mmol/L) Final Performing Location LABORATORY [facility] - [address] [address]
--- OUTSIDE RECORDS SUMMARY | 2024-05-17 10:35 | External Medical Summary | Summary of Care ---
Author Name Unknown Organization [facility] Address [address] [place] [address] Phone [phone] Care Team Providers Care Motel Front Desk Clerk Name Role Phone Levar Ordonez DO Primary Care Provider [phone] Reason for Referral * Evaluate & Treat - Unlimited Visits (Within 3 days (urgent)) - Authorized Specialty Diagnoses / Procedures Referred By Rosendo trujillo Referred To Contact Endocrinology/Metabolism / Endocrinology Diagnoses Hyperparathyroidism (HCC) Recurrent kidney stones Levar Ordonez DO [address] [place] [address] Phone: tel: fax: Referral ID Status Reason Start Date Expiration Date Visits Requested Visits Authorized [id number] Authorized Specialty Services Required 05/10/[phone] Question Answer Referral Priority Within 3 days (urgent) Where should this appointment be scheduled? [facility] For what condition is the patient being referred? Other Conditions Reason for Visit * Reason Onset Date Comments Referral 05/09/2024 Encounter Details Date Type Department Care Team (Late st Contact Info) Description 05/09/2024 Telephone Family Practice [facility] [address] [place] [address] Levar Ordonez DO [address] [place] [address] Referral Allergies Active Allergy Reactions Criticality Noted [...] Menorrhagia with regular cycle 04/16/2021 [facility] OTHER*[id number] 01/24/2021 Gastroesophageal reflux disease with esophagitis 01/04/2019 [...] Addendum Note - Levar Ordonez DO - 05/10/2024 3:30 PM ESTAddended by: LEVAR ORDONEZ on: 05/10/2024 03:30 PM Modules accepted: Orders * Telephone Encounter - Levar Ordonez DO - 05/10/2024 3:29 PM EST Referral signed, please help set up with endocrinology * Addendum Note - Kwame France RN [...] are any questions or concerns please call [phone] Thank you, Randa Scott CPhT Cocktail Server II [facility] 05/09/2024,10:05 AM documented in this encounter Plan of Treatment Scheduled Procedures Name Priority Associated Diagnoses Date/Ti me COLONOSCOPY FLEXIBLE PROXIMA L DIAGNOSTIC Recall History of colonic polyps Scheduled Referrals Name Type Priority Associated Diagnoses Order Schedule ADULT ENDOCRINOLOGY REFERRAL OP Referral Within 3 days (urgent) Hyperparathyroidism (HCC) Recurrent kidney stones Ordered: 05/10/2024 Health Maintenance Due Date Last Done Comments [...] as of this encounter Visit Diagnoses Diagnosis Hyperparathyroidism (HCC)- Primary Hyperparathyroidism, unspecified Recurrent kidney stones Calculus of kidney documented in this encounter [...] Power of Attor gab? No Care Teams Motel Front Desk Clerk Relationship Specialty Start Date End Date Levar Ordonez DO [address] [place] [address] PCP - General Family Medicine 06/09/19 documented as of this encounter
--- OUTSIDE RECORDS SUMMARY | 2024-05-17 10:35 | External Medical Summary | Summary of Care ---
Author Name Unknown Organization [facility] Address [address] [place] [address] Phone [phone] Care Team Providers Care Restaurant Bartender Name Role Phone Levar Ordonez DO Primary Care Provider [phone] Reason for Referral * Evaluate & Treat - Unlimited Visits (Within 3 days (urgent)) - Authorized Specialty Diagnoses / Procedures Referred By Rosendo trujillo Referred To Contact Endocrinology/Metabolism / Endocrinology Diagnoses Hyperparathyroidism (HCC) Recurrent kidney stones Levar Ordonez DO [address] [place] [address] Phone: tel: fax: Referral ID Status Reason Start Date Expiration Date Visits Requested Visits Authorized [id number] Authorized Specialty Services Required 05/10/[phone] [...] [facility] Gonsalez [address] [place] [address] Levar Ordonez DO [address] [place] [address] Referral Allergies Active Allergy Reactions Criticality Noted Date Comments Prochlorperazine Psych complications 06/12/2020 Probably dystonic reaction. The patient does tolerate Phenergan Morphine Hives Low 03/20/2019 Pt feels the rash may have been from tape at the IV site. Sulfamethoxazole Hives High 03/03/2021 Trimethoprim Hives High 05/02/2018 documented as of this encounter (statuses as of 05/11/2024) Medications Acetaminophen 325 MG Oral Capsule Take [...] as of this encounter (statuses as of 05/11/2024) Active Problems Problem Noted Date Diagnosed Date [...] Menorrhagia with regular cycle 04/16/2021 [facility] OTHER*[id number] 01/24/2021 Gastroesophageal reflux disease with esophagitis 01/04/2019 Recurrent major depressive disorder, in full rem ission 01/04/2019 Irritable bowel syndrome wit h both constipation and diarrhea 01/04/2019 documented as of this encounter (statuses as of 05/11/2024) Resolved Problems Problem Noted Date Diagnosed Date [...] as of this encounter (statuses as of 05/11/2024) Immunizations Name Administration Dates Next Due COVID-19 [...] encounter Miscellaneous Notes * Telephone Encounter - Mariana Corona OSA - 05/11/2024 10:33 AM EST LMOM -please assist with scheduling with endocrinology when pt returns the call. * Addendum Note - Levar Ordonez DO [...] are any questions or concerns please call [phone] Thank you, Randa Scott CPhT Director Of Pupil Personnel Program II [facility] 05/09/2024,10:05 [...] 03/20/2023, 03/20/2023, Additional history exists DTap/Tdap Vaccines ( Td or Tdap) 01/06/2027 01/06/2017, 01/06/2017, 01/06/2017, [...] Power of Attor gab? No Care Teams Restaurant Bartender Relationship Specialty Start Date End Date Levar Ordonez DO [address] [place] [address] PCP - General Family Medicine 06/09/19 documented as of this encounter
[2024-05-17] MEDS ORDERED: MIDAZOLAM HCL 1 MG/ML 2ML VIAL ONE (15:22)
[2024-05-17] MEDS ORDERED: LIDOCAINE 2% 2 ML VIAL/AMP(20MG/ML) INFIL ONE ×2 (15:23)
[2024-05-17] MEDS ORDERED: fentaNYL citrate PF 100 MCG/2 ML VIAL ONE (15:23)
[2024-05-17] MEDS ORDERED: PROPOFOL IV EMULSION 10 MG/ML 20 ML VIAL IV ONE (15:24)
--- NOTE | 2024-05-17 15:33 | Anesthesiology Consultation ---
Date of Service May 17, 2024 Assessment & Plan Chart Review Chart Review: Acceptable Risk for Surgery ASA ASA2 Proposed Anesthesia Anesthesia Type: General Risk / Benefits Reviewed With: PT / POA / Parent / Guardian, Accepts Plan and Informed Consent Obtained History Surgery Operation Date: 05/17/24 09:20 Proposed Procedures p Cystoscopy Left Retrograde Pyelogram and Stent Placement, Possible Ureteroscopy, Laser Lithotripsy - Ab De Souza MD Height/Weight Height: 5 ft 6 in Weight: 87 kg Allergies Allergy/AdvReac Type Severity Reaction Status Date / Time sulfamethoxazole Allergy Intermediate HIVES Verified 05/08/24 18:38 trimethoprim Allergy Intermediate HIVES Verified 05/08/24 18:38 ertapenem Allergy Mild Rash Verified 05/10/24 23:11 Medications Home Medications Medication Instructions Recorded Confirmed Last Taken buspirone 10 mg tablet 10 mg PO HS 03/09/23 05/16/24 05/07/24 sertraline 100 mg tablet 100 mg PO DAILY 03/09/23 05/16/24 05/08/24 omeprazole 20 mg capsule,delayed 20 mg PO DAILY 12/24/23 05/16/24 05/08/24 release norelgestromin 150 mcg-e.estradiol 1 patch transdermal Q7D #3 ea 02/29/24 05/16/24 03/10/24 35 mcg/24 hr weekly transderm patch (Xulane) albuterol sulfate 90 mcg/actuation 1 puff inhalation Q6H PRN 05/08/24 05/16/24 05/08/24 aerosol inhaler (Ventolin HFA) SOB/Wheezing gabapentin 300 mg capsule 600 mg PO HS 05/08/24 05/16/24 05/07/24 ondansetron 4 mg disintegrating 4 mg PO Q8H PRN nausea and 05/08/24 05/16/24 Unknown tablet vomiting #30 tabs rizatriptan 5 mg tablet 5 mg PO DAILY PRN Migraine Headache 05/08/24 05/16/24 Unknown ciprofloxacin HCl 500 mg tablet 500 mg PO BID 7 days #14 tabs 05/12/24 05/16/24 Unknown nitrofurantoin 100 mg PO BID 05/16/24 05/16/24 Unknown monohydrate/macrocrystals 100 mg capsule Active Medications Generic Name Dose Route Start Last Admin Trade Name Freq PRN Reason Stop Dose Admin Acetaminophen 650 mg 05/16/24 19:02 05/16/24 22:59 Acetaminophen 325 Mg Tab PO 06/15/24 19:01 650 mg Q4H PRN Administration pain/fever Buspirone HCl 10 mg 05/16/24 21:00 05/16/24 21:21 Buspirone 5 Mg Tab PO 06/15/24 20:59 10 mg HS CHELSEY Administration Docusate Sodium 100 mg 05/16/24 21:00 05/17/24 09:25 Docusate Sodium 100 Mg Cap PO 06/15/24 20:59 100 mg BID CHELSEY Administration Gabapentin 600 mg 05/16/24 21:00 05/16/24 21:21 Gabapentin 300 Mg Cap PO 06/15/24 20:59 600 mg HS CHELESY Administration Hydromorphone HCl 0.5 mg 05/16/24 19:01 05/17/24 12:22 Hydromorphone Inj 0.5 Mg/0.5 Ml Syr IV 05/30/24 19:00 0.5 mg Q6H PRN Administration Severe Pain (Scale 7, 8, 9,10) Lactobacillus Acidophilus 1,250 mg 05/17/24 09:00 05/17/24 09:19 Advanced Probiotic 625 Mg Capsule PO 06/16/24 08:59 1,250 mg DAILY CHELSEY Administration Ondansetron HCl 4 mg 05/16/24 19:13 05/16/24 20:24 Ondansetron 4 Mg Od Tab PO 06/15/24 19:12 4 mg Q8H PRN Administration nausea and vomiting Oxycodone HCl 5 mg 05/16/24 19:01 05/17/24 14:47 Oxycodone Hcl Ir 5 Mg Tab (Immediate Release) PO 05/30/24 19:00 5 mg Q6H PRN Administration Moderate Pain (Scale 4, 5, 6) Pantoprazole Sodium 40 mg 05/17/24 09:00 05/17/24 09:18 Pantoprazole 40 Mg Tab PO 06/16/24 08:59 40 mg DAILY CHELSEY Administration Sertraline HCl 100 mg 05/17/24 09:00 05/17/24 09:19 Sertraline Hcl 100 Mg Tablet PO 06/16/24 08:59 100 mg DAILY CHELSEY Administration NPO Date Last Intake of Fluids: 05/16/24 Time Last Intake of Fluids: 21:00 Date Last Intake of Solids: 05/15/24 Time Last Intake of Solids: 18:00 Past Medical History Medical History Nephrolithiasis Ovarian cyst Kidney stones GERD (gastroesophageal reflux disease) Exercise / Class Metabolic Activity II 4-5 Yardwork/Stairs/Walk up hill Past Family History Family History Uncle Diabetes Mother Kidney stones Breast cancer Hx of cholecystectomy Hypertension Father Hx of cholecystectomy Other No family history of adverse response to anesthesia Denies family history of Ovarian cancer Prostate cancer Colorectal cancer Past Surgical History Surgical History Hx of cystoscopy w/ stent-04/2022 [facility] 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 History of colonoscopy History of appendectomy 03/16/19: Grade 2 view, Veloz 2, ETT 7.5 atraumatic x 1. History of wisdom tooth extraction PONV (postoperative nausea and vomiting) Status post laparoscopic procedure REMOVED uterine surface endometriotic tissue Previous section 02/20/2017 Past Anesthesia History No Hx of Anesthesia Complications History of PONV No Hx of PONV Social History Smoking Status: Never smoker Do You Dip or Chew Tobacco: No Hx Alcohol Use: No Alcohol type: wine alcohol intake frequency: holidays/special occasions only Hx Substance Use: No substance use type: does not use Physical Exam Vital Signs Last Vital Signs Temp 37.1 C 05/17/24 15:15 Pulse 76 05/17/24 15:15 Resp 16 05/17/24 15:15 BP 145/89 H 05/17/24 15:15 Pulse Ox 100 05/17/24 15:15 O2 Del Method Room Air 05/17/24 15:15 ENMT Thyromental Distance: > or= 3.5 Finger Breadths Mallampati Class: II Respiratory Auscultation: lungs clear to auscultation bilaterally Cardiovascular Rate/Rhythm: regular rate and regular rhythm Psychiatric Orientation: alert and oriented x 3 Testing Laboratory Results 05/17/24 08:09 05/17/24 08:09 PT 11.4 Seconds (9.0-12.0) 05/16/24 14:58 INR 1.1 (0.9-1.1) 05/16/24 14:58 APTT 22 Seconds (21-31) 05/16/24 14:58 Urine Color Yellow 05/16/24 Unknown Urine Appearance Clear (Clear) 05/16/24 Unknown Urine pH 6.5 (4.5-7.5) 05/16/24 Unknown Ur Specific [place] 1.015 (1.000-1.030) 05/16/24 Unknown Urine Protein Negative (Negative) 05/16/24 Unknown Urine Glucose (UA) Negative (Negative) 05/16/24 Unknown Urine Ketones Negative (Negative) 05/16/24 Unknown Urine Nitrite Positive (Negative) A 05/16/24 Unknown Ur Leukocyte Esterase Negative (Negative) 05/16/24 Unknown Urine RBC 0-2 /hpf (0-2) 05/16/24 Unknown Urine WBC 0-5 /hpf (0-5) 05/16/24 Unknown Ur Epithelial Cells >20 /hpf (0-2) H 05/16/24 Unknown 05/16/24 Unknown Urine Culture - Preliminary Urine,Clean Catch Pin-point growth present, reincubating.
--- NOTE | 2024-05-17 15:34 | History & Physical Bridge Note ---
Date of Service May 17, 2024 History & Physical Bridge Note I have examined the patient, reviewed the History & Physical and in the interval since the performance of the History & Physical I have noted the following changes of clinical significance: no changes noted
[2024-05-17] MEDS ORDERED: fentaNYL citrate PF 100 MCG/2 ML VIAL IV PRN (15:35)
[2024-05-17] MEDS ORDERED: ePHEDrine sulfate 50 MG/ML AMP IV PRN (15:35)
[2024-05-17] MEDS ORDERED: ONDANSETRON INJ 2 MG/ML 2 ML VIAL IV PRN (15:35)
[2024-05-17] MEDS ORDERED: HYDROmorphone INJ 1 MG/ML SYRINGE IV PRN (15:35)
[2024-05-17] MEDS ORDERED: ATROPINE SULFATE 0.1 MG/ML 10ML SYR IV PRN (15:35)
[2024-05-17] MEDS ORDERED: DEXAMETHASONE SOD INJ 4 MG/ML VIAL ONE (15:54)
[2024-05-17] MEDS ORDERED: ONDANSETRON INJ 2 MG/ML 2 ML VIAL ONE (15:54)
[2024-05-17] MEDS ORDERED: KETAMINE HCL 10MG/ML SYR ONE (15:56)
[2024-05-17] MEDS: DROPERIDOL 5 MG/2 ML VIAL IV PRN (16:23)
[2024-05-17] MEDS: HYDROmorphone INJ 2 MG/ML SYR/VIAL IV PRN (16:24)
--- NOTE | 2024-05-17 16:43 | Anesthesiology Progress Note ---
Date of Service May 17, 2024 Anesthesia Post Procedure Vital Signs Vital Signs: Temp Pulse Pulse Pulse Resp BP BP 05/17/24 16:30 104 H 12 126/81 05/17/24 16:20 108 H 15 137/96 05/17/24 16:13 36 C L 97 H 15 145/87 H 05/17/24 15:15 37.1 C 76 16 145/89 H 05/17/24 15:06 36.9 C 75 16 126/85 05/17/24 08:00 05/17/24 07:59 36.6 C 85 16 126/84 05/16/24 20:45 36.8 C 93 H 16 151/98 H 05/16/24 20:00 97 H 20 142/111 H 05/16/24 18:51 36.8 C 89 18 118/91 05/16/24 16:51 92 H 05/16/24 16:45 05/16/24 16:45 96 H 19 150/107 H Pulse Ox O2 Del Method O2 Flow Rate 05/17/24 16:30 100 Oxymask 3 05/17/24 16:20 100 Oxymask 3 05/17/24 16:13 100 Oxymask 3 05/17/24 15:15 100 Room Air 05/17/24 15:06 100 Room Air 05/17/24 08:00 Room Air 05/17/24 07:59 98 Room Air 05/16/24 20:45 98 Room Air 05/16/24 20:00 97 Room Air 05/16/24 18:51 98 Room Air 05/16/24 16:51 05/16/24 16:45 100 Room Air 05/16/24 16:45 100 Room Air Pain Intensity Left Flank: Pain Intensity: 8 Transfer of Care Handoff Completed per policy Notes Mental Status: alert / awake / arousable Patient Amnestic to Procedure: Yes Nausea / Vomiting: adequately controlled Pain: adequately controlled Airway Patency, RR, SpO2: stable & adequate BP & HR: stable & adequate Hydration State: stable & adequate Anesthetic Complications: no major complications apparent and Pt Satisfied with anesthetic care
[2024-05-17] MEDS: ERTAPENEM 1000MG 1,000 MG/10 ML SYR IV SCH (18:23)
--- OUTSIDE RECORDS SUMMARY | 2024-05-17 21:29 | External Medical Summary | Summary of Care ---
Author Name Unknown Organization [facility] [address] [place] [address] Phone [phone] Care Team Providers Care Connie Cleaner Name Role Phone Dimas Doty DO Primary Care Provider [phone] Reason for Visit * Reason Comments Abdominal Pain * Auth/Cert Specialty Diagnoses / Procedures Referred By Rosendo t Referred To Contact [address] [address] Phone: tel:[phone] [facility] Emergency Department ([facility]) [address] [place] [address] Phone: tel: fax: Referral ID Status Reason Start Date Expiration Date Visits Re quested Visits Authorized [id number] Encounter Details Date Type Department Care Team (Late st Contact Info) Description 05/15/2024 8:11 PM EST - 05/16/2024 12:37 AM EST Emergency [facility] Emergency Department ([facility]) [address], [place] [id number] Jack Nguyen DO [address] [place] [address] Kidney stone (Primary Dx); Tachycardia; Renal colic Discharge Disposition: Home - Self Care Allergies Active Allergy Reactions Criticality Noted Date Comments Prochlorperazine Psych complications 06/12/2020 Probably dystonic reaction. The patient does tolerate Phenergan Ertapenem Rash 05/10/2024 Morphine Hives Low 03/20/2019 Pt feels the rash may have been from tape at the IV site. Sulfamethoxazole Hives High 03/03/2021 Trimethoprim Hives High 05/02/2018 documented as of this encounter (statuses as of 05/16/2024) Medications Acetaminophen 325 MG Oral Capsule Take 325 mg by mouth every 6 hours as needed for Pain, Mild. Active Sertraline HCl 100 MG Oral Tablet (Zoloft)Indicatio ns:Recurrent major depressive disorder, in full remission (HCC) TAKE 1 & 1/2 TABLETS BY MOUTH IN THE MORNING. 30 Tablet Active Additional Information Patient taking differently: 100 mg Oral Daily(AM), TAKE 1 TABLETS BY MOUTH IN the evening., Reported on 05/13/2024 busPIRone HCl 10 MG Oral Tablet (Buspar) Take 1 Tablet by mouth in the morning. 30 Tablet 024 Active Omeprazole 20 MG Oral Capsule Delayed Release (PriLOSEC)Indicat ions:Gastroesopha geal reflux disease with esophagitis and hemorrhage Take 1 Capsule by mouth in the morning. 30 Capsule 024 Active Tamsulosin HCl 0.4 MG Oral Capsule (Flomax) Take 1 Capsule by mouth in the morning. 28 Capsule 024 Active Rizatriptan Benzoate 5 MG Oral Tablet Take 1 Tablet by mouth as needed for Migraine. May repeat in 2 hours if needed 10 Tablet 024 Active Gabapentin 300 MG Oral Capsule (Neurontin) Take 1 Capsule by mouth in the morning and 1 Capsule at noon and 1 Capsule before bedtime. 90 Capsule 024 Active Additional Information Patient taking differently: 600 mgOralHS, Reported on 05/13/2024 Phenazopyridine HCl 100 MG Oral Tablet (Pyridium) Take 1 Tablet by mouth 3 times a day as needed for Pain, Breakthrough. 10 Tablet 1 024 Active Promethazine HCl 25 MG Oral Tablet (Phenergan) Take 1 Tablet by mouth every 6 hours as needed for Nausea for up to 20 doses. 20 Tablet 11/16/2 024 Active Additional Information Patient not taking.Reported on 05/13/2024 ProAir HFA 108 (90 Base) MCG/ACT Inhalation Aerosol SolutionIndicatio ns:Pneumonia of left lower lobe due to infectious organism Inhale 2 Puffs by mouth every 4 hours as needed for Wheezing, Cough or Shortness of Breath. 18 g 1 Active Additional Information Patient not taking.Reported on 05/13/2024 guaiFENesin-Codei ne 100-10 MG/5ML Oral Solution (Robitussin AC)Indications:Pn eumonia of left lower lobe due to infectious organism Take 5 mL by mouth every 4 hours as needed for Cough. 120 mL Active Additional Information Patient not taking.Reported on 05/13/2024 oxyCODONE-Acetami nophen 5-325 MG Oral Tablet (Percocet) Take 1 Tablet by mouth every 6 hours as needed for Pain, Severe. 40 Tablet Active Ciprofloxacin HCl 500 MG Oral Tablet (Cipro) Take 1 Tablet by mouth in the morning and 1 Tablet before bedtime. 2023 Active Ondansetron 4 MG Oral Tablet Disintegrating (Zofran) Place 1 Tablet on tongue every 8 hours as needed for Nausea. dissolve on tongue. 2 Tablet Active Ondansetron 4 MG Oral Tablet Disintegrating (Zofran) Place 1 Tablet on tongue every 8 hours as needed for Nausea. dissolve on tongue. 2 Tablet 2023 Discontinued predniSONE 10 MG Oral Tablet (Deltasone)Indica tions:Pneumonia of left lower lobe due to infectious organism Take 5 tabs for 2 days, 4 tabs for 2 days, 3 tabs for 2 days, 2 tabs for 2 days 1 tab for 2 days 30 Tablet 2023 Discontinued(E nd of Procedure) Azithromycin 250 MG Oral Tablet (Zithromax)Indica tions:Pneumonia of left lower lobe due to infectious organism Take 2 tabs by mouth on the first day, then 1 tab daily on days two through five 6 Tablet 2023 Discontinued(P atient preference/dis continuation) Ondansetron 4 MG Oral Tablet Disintegrating (Zofran) Place 1 Tablet on tongue every 8 hours as needed for Nausea or Vomiting for up to 15 doses. dissolve on tongue. 15 Tablet 024 2023 Discontinued Baclofen 5 MG Oral Tablet (Lioresal) Take 1 Tablet by mouth 3 times a day as needed (Muscle spasms/back pain) for up to 5 days. 15 Tablet 024 2023 Discontinued(P atient preference/dis continuation) documented as of this encounter (statuses as of 05/16/2024) Active Problems Problem Noted Date Diagnosed Date Cyst of kidney, acquired 05/16/2024 Unspecified ovarian cyst, left side 12/18/2023 Bilateral [...] Menorrhagia with regular cycle 04/16/2021 [facility] [employer] OTHER*[id number] 01/24/2021 Gastroesophageal reflux disease with esophagitis 01/04/2019 Recurrent major depressive disorder, in full rem ission 01/04/2019 Irritable bowel syndrome wit h both constipation and diarrhea 01/04/2019 documented as of this encounter (statuses as of 05/16/2024) Resolved Problems Problem Noted Date Diagnosed Date [...] as of this encounter (statuses as of 05/16/2024) Immunizations Name Administration Dates Next Due COVID-19 mRNA, LNP-s, No Pre serve, 2-Dose Series ([employer]) 04/03/2021,06/26/2020,06/05/2020 DTaP Dipth/Tet/Acell Pertussis ([employer]), Peds 01/06/2017,09/28/1997,09/18/1994,08/15,1993,1993 [...] pur e alcohol) PHQ-2 Answer Date Recorded PHQ Adult Total Score 2 05/13/2024 Hunger Vital Sign Answer Date Recorded Within the past 12 months, y ou worried that your food would run out before you got the money to buy more. Never true 05/13/20 24 Within the past 12 months, t he food you bought just didn't last and you didn't have money to get more. Never true 05/13/2024 Childcare Answer Date Recorded Do you feel overwhelmed with taking care of a child, family member or friend? No 05/13/2024 Does your family need help f inding childcare? (Household - for ages 0-17 years) Not on file 05/13/2024 Clothing Answer Date Recorded Have you been unable to get clothing when it was really needed? No 05/13/2024 Is your family able to get c lothes or diapers when needed? (Household - for ages 0-17 years) Not on file 05/13/2024 Personal Safety Answer Date Recorded Do you feel unsafe or have concerns for your saf ety? No 05/13/2024 Do you have concerns for you r family's safety? (Household - for ages 0-17 years) Not on file 05/13/2024 Utilities Answer Date Recorded Do you have trouble paying y our heating, water, or electric bill? No 05/13/2024 Is your family able to pay t he heat, water, or electric bill? (Household - for ages 0-17 years) Not on file 05/13/2024 Does your family have access to good internet? (Household - for ages 0-17 years) Not on file 05/13/2024 Employment Status Answer Date Recorded Are you unemployed or without regular income? No 05/13/2024 Does the household have a re gular source of income? (Household - for ages 0-17 years) Not on file 05/13/2024 Social Connections Answer Date Recorded How often do you feel lonely or isolated from th ose around you? Never 05/13/2024 Financial Resource Strain Answer Date R ecorded Do you have any trouble payi ng for your medications, or do you think you might in the future? No 05/13/2024 Does your family have troubl e paying for medicine? (Household - for ages 0-17 years) Not on file 05/13/2024 Transportation Needs Answer Date Record ed READ ONLY Do you have troubl e getting a ride to medical visits or work? Never True 05/13/2024 Does your family have a hard time getting a ride to doctors visits? (Household - for ages 0-17 years) Not on file 05/13/2024 Has lack of transportation k ept you from medical appointments, meetings, work, or from getting things needed for daily living? Check all that apply. No 05/13/2024 Do you (or your family) have trouble finding or paying for a ride (transportation)? (Household - for ages 0-17 years) Not on file 05/13/2024 Housing Stability Answer Date Recorded Do you currently live in a s helter or have no steady place to sleep at night? No 05/13/2024 READ ONLY Do you think you a re at risk of becoming homeless? No 05/13/2024 Does your family worry about paying for your home or becoming homeless? (Household - for ages 0-17 years) Not on file 1 07/14/2023 Are you homeless or worried that you might be in the future? No 05/13/2024 Are you (or your family) rikki eless or worried that you might be in the future? (Household - for ages 0-17 years) Not on file Food Insecurity Answer Date Recorded Do you need food for this week? No 05/13/2024 Are you able to get enough f ood for your family? (Household - for ages 0-17 years) Not on file 05/13/2024 Does your family need food t his week? (Household - for ages 0-17 years) Not on file 05/13/2024 Do you always have enough fo od for your family? (Household - for ages 0-17 years) Not on file 05/13/2024 Comments No Sex and Gender Information Value [...] Sign Reading Time Taken Comments Blood Pressure 126/99 05/16/2024 12:00 AM EST Pulse 95 05/16/2024 12:00 AM EST Temperature 36.8 C (98.2 F) 05/15/2024 9:43 PM ES T Respiratory Rate 16 05/16/2024 12:00 AM EST Oxygen Saturation 100% 05/15/2024 8:07 PM EST Inhaled Oxygen Concentration - - Weight 83.9 kg (185 lb) 05/15/2024 8:07 PM EST Height 167.6 cm (5' 6") 05/15/2024 8:07 PM EST Body Mass Index 29.86 05/15/2024 8:07 PM EST documented in this encounter Functional Status [...] this encounter Discharge Instructions * Discharge Instructions* Armond Rouse PA-C - 05/16/2024 12:19 AM EST You have been diagnosed with a kidney stone. You should use Tylenol and ibuprofen to help with yourpain. You should use these routinely around the clock for the next few days. Percocet may be used for pain not controlled with OTC meds. Ondansetron may be used for nausea. Call your urologist and PCP in the morning. Should you have any worsening of your pain, uncontrolled nausea and vomiting, or cessation of urinating you should report back to the ER immediately. documented in this encounter ED Notes * Pedro Son RN - 05/15/2024 8:09 PM EST Pt states that she started not feeling well today. States that she suddenly started feeling flush and became diaphoretic. Pt states that she was recently admitted at [facility] for sepsis. Is taking PO cipro for a complicated UTI. documented in this encounter Miscellaneous Notes * ED Glove Stitcher Note - Fiona Soto RN - 05/16/2024 12:36 AM EST Pt given d/c instructions and they verbalized understanding. Advised to follow up with PCP and to return here if s/s worsen. PIV removed, cath tip intact. Pt ambulated out without difficulty. * ED Glove Stitcher Note - Fiona Soto RN - 05/15/2024 9:47 PM EST Pt says that she is nauseated when she stood up. Says that she feels clammy again. Provider aware, see orders. * ED Glove Stitcher Note - Fiona Soto RN - 05/15/2024 9:01 PM EST Pt here from home with lower abd pain that started suddenly today. Says that she was admitted to [facility] on 05/10/24 for UTI/sepsis. Says that she was discharged 2 days ago. Says that she was discharged with PO cipro. Reports that she still has burning and pain on urination. Says that there was been blood in her urine for approx 1 month. Reports that she has had n/v for the past week and has been taki ng zofran with relief. Says that she last took zofran 6 hours ago and took 800mg of ibuprofen and 1000mg of tylenol around 1900 tonight. Toradol held at this time, provider aware. Pt reports that shewas putting things away in her bedroom when the lower abd pain came on. Says that she was diaphoretic at that time and felt flushed. Reports history of frequent kidney stones. Denies CP, SOB, diarrhea, cough, congestion. Pt is AOx4, respirations even and unlabored, heart regular, lungs clear, abd soft, non distended. Pt resting on stretcher with call black in reach. IVF infusing per MAR. documented in this encounter Plan of Treatment Upcoming Encounters Date Type Department Care Team (Late st Contact Info) Description 05/17/2024 10:20 AM EST Office Visit Family Practice [facility] [address] [facility] [place] [address] Dimas Doty, DO [address] [facility] [place] [address] Pending Results Name Type Priority Associated Diagnoses Date /Time CULTURE, URINE, QUANTITATIVE Lab STAT 05/15/2024 8:41 PM EST Scheduled Orders Name Type Priority Associated Diagnoses Orde r Schedule CULTURE, URINE, QUANTITATIVE Lab STAT One Time for 1 Occurrences starting 05/15/2024 until 05/15/2024 Scheduled Procedures Name Priority Associated Diagnoses Date/Ti me COLONOSCOPY FLEXIBLE PROXIMA L DIAGNOSTIC Recall History of colonic polyps Health Maintenance Due Date Last Done Comments Pap Smear 04/09/2020 04/09/2017, 09/21/2014 Cervical Cancer Screening 2023 HPV/Co-Test 2023 COVID-19 Vaccine ( season) 2024 04/03/2021, 06/26/2020, 06/05/2020 Influenza Vaccine (FLU shot) (#1) 2024 04/06/2023, 03/20/2023, 03/20/2023, Additional history exists Depression Monitoring 05/13/2025 05/13/2024 DTap/Tdap Vaccines (11 - Td or Tdap) [...] Procedure Name Priority Date/Time Associated Diagnosis Comments CT ABD/PELVIS W IV CONTRAST - WO ORAL CONTRAST STAT 05/15/2024 10:54 PM EST URINALYSIS WITH MICROSCOPIC EXAM STAT 05/15/2024 8:41 PM EST EXTRA GREEN TOP WITH GEL Routine 05/15/2024 8:40 PM EST EXTRA TUBES Routine 05/15/2024 8:40 PM EST DIFFERENTIAL, AUTOMATED STAT 05/15/2024 8:40 PM EST PROCALCITONIN STAT 05/15/2024 8:40 PM EST COMPREHENSIVE METABOLIC PANEL STAT 05/15/2024 8:40 PM EST CBC STAT 05/15/2024 8:40 PM EST LIPASE STAT 05/15/2024 8:40 PM EST LACTATE STAT 05/15/2024 8:40 PM EST CBC STAT 05/15/2024 8:40 PM EST documented in this encounter Results * CT ABD/PELVIS W IV CONTRAST - WO ORAL CONTRAST (05/15/2024 10:54 PM EST) Anatomical Region Laterality Modality Body, Abdomen, Pelvis Computed T omography 05/15/2024 10:3 7 PM EST Impressions 05/16/2024 12:04 AM EST IMPRESSION: 1. There is a new calcification in the dependent urinary bladder which may reflect a recently passed calculus, previously in the left lower pole. No hydronephrosis is seen. 2. 3.4 cm right adnexal cyst, possibly dominant follicle. THIS DOCUMENT HAS BEEN ELECTRONICALLY SIGNED BY CLARIBEL BOYD MD Narrative 05/16/2024 12:04 AM EST PROCEDURE INFORMATION: Exam: CT Abdomen And Pelvis With Contrast Exam date and time: 05/15/2024 10:37 PM Age: 29 years old Clinical indication: Abdominal pain; Additional info: Rlq abd pain, nv TECHNIQUE: Imaging protocol: Computed tomography of the abdomen and pelvis with contrast. Radiation optimization: All CT scans at this facility use at least one of these dose optimization techniques: automated exposure control; mA and/or kV adjustment per patient size (includes targeted exams where dose is matched to clinical indication); or iterative reconstruction. Contrast material: ISO 370; Contrast volume: 80 ml; Contrast route: INTRAVENOUS (IV); COMPARISON: 1. CT ABD/PELVIS W IV CONTRAST - WO ORAL CONTRAST 04/29/2024 8:[address] ABD/PELVIS WO IV/ORAL CONTRAST 04/23/2024 6:[address] ABD/PELVIS W IV CONTRAST - WO ORAL CONTRAST 02/13/2024 11:53 AM FINDINGS: Liver: Normal. Gallbladder and biliary ducts: The patient is status post cholecystectomy. Pancreas: Normal. Spleen: Normal. Adrenal glands: The adrenal glands appear normal. Kidneys and ureters: No hydronephrosis is seen. Stomach and bowel: Prior Otilia-en-Y gastric bypass. There is large volume stool throughout the colon. There is large volume stool throughout the colon. Appendix: Patient is status post appendectomy. Intraperitoneal space: Unremarkable. Vasculature: The abdominal aorta and its major branches appear normal without evidence of aneurysm or stenosis. There are pelvic phleboliths. Lymph nodes: No lymphadenopathy. Urinary bladder: There is a new calcification in the dependent urinary bladder which may reflect a recently passed calculus, previously in the left lower pole. Reproductive: 3.4 cm right adnexal cyst, possibly dominant follicle. Bones/joints: The visualized osseous structures of the abdomen and pelvis appear normal for patient age. Soft tissues: There is a small fat containing umbilical hernia. Procedure Note Claribel Boyd MD - 05/16/2024 PROCEDURE INFORMATION: Exam: CT Abdomen And Pelvis With Contrast Exam date and time: 05/15/2024 10:37 PM Age: 29 years old Clinical indication: Abdominal pain; Additional info: Rlq abd pain, nv TECHNIQUE: Imaging protocol: Computed tomography of the abdomen and pelvis withcontrast. Radiation optimization: All CT scans at this facility use at least one ofthese dose optimization techniques: automated exposure control; mA and/or kV adjustment per patient size (includes targeted exams where dose is matchedto clinical indication); or iterative reconstruction. Contrast material: ISO 370; Contrast volume: 80 ml; Contrast route:INTRAVENOUS (IV); COMPARISON: 1. CT ABD/PELVIS W IV CONTRAST - WO ORAL CONTRAST 04/29/2024 8:[address] ABD/PELVIS WO IV/ORAL CONTRAST 04/23/2024 6:[address] ABD/PELVIS W IV CONTRAST - WO ORAL CONTRAST 02/13/2024 11:53 AM FINDINGS: Liver: Normal. Gallbladder and biliary ducts: The patient is status post cholecystectomy. Pancreas: Normal. Spleen: Normal. Adrenal glands: The adrenal glands appear normal. Kidneys and ureters: No hydronephrosis is seen. Stomach and bowel: Prior Otilia-en-Y gastric bypass. There is large volumestool throughout the colon. There is large volume stool throughout the colon. Appendix: Patient is status post appendectomy. Intraperitoneal space: Unremarkable. Vasculature: The abdominal aorta and its major branches appear normalwithout evidence of aneurysm or stenosis. There are pelvic phleboliths. Lymph nodes: No lymphadenopathy. Urinary bladder: There is a new calcification in the dependent urinarybladder which may reflect a recently passed calculus, previously in the left lower pole. Reproductive: 3.4 cm right adnexal cyst, possibly dominant follicle. Bones/joints: The visualized osseous structures of the abdomen and pelvis appear normal for patient age. Soft tissues: There is a small fat containing umbilical hernia. IMPRESSION IMPRESSION: 1. There is a new calcification in the dependent urinary bladder whichmay reflect a recently passed calculus, previously in the left lower pole. No hydronephrosis is seen. 2. 3.4 cm right adnexal cyst, possibly dominant follicle. THIS DOCUMENT HAS BEEN ELECTRONICALLY SIGNED BY CLARIBEL BOYD MD Armond Rouse PA-C RAD CT Final Result * (ABNORMAL) URINALYSIS WITH MICROSCOPIC EXAM (05/15/2024 8:41 PM EST) Color, Urine Yellow Light Yellow, Yellow, Dark Yellow 05/15/2024 8:59 PM EST [facility] Clarity, Urine Slightly Cloudy(A) Clear 05/15/2024 8:59 PM EST [facility] Glucose, Urine 100(A) Negative mg/dL 05/15/2024 8:59 PM EST [facility] Bilirubin, Urine Negative Negative 05/15/2024 8:59 PM EST [facility] Ketone, Urine 15(A) Negative mg/dL 05/15/2024 8:59 PM EST [facility] Specific [place], Urine 1.023 1.003 - 1.030 05/15/2024 8:59 PM EST [facility] Blood, Urine Negative Negative 05/15/2024 8:59 PM EST [facility] pH, Urine 6.0 5.0 - 7.5 Units 05/15/2024 8:59 PM EST [facility] Protein, Urine Negative Negative mg/dL 05/15/2024 8:59 PM EST [facility] Urobilinogen, Urine 1.0 0.2, 1.0 mg/dL 05/15/2024 8:59 PM EST [facility] Nitrite, Urine Negative Negative 05/15/2024 8:59 PM EST [facility] Esterase, Urine Negative Negative 05/15/2024 8:59 PM EST LABORATORY GL RBC, Urine 0-2 0 - 2 /HPF 05/15/2024 8:59 PM EST [facility] WBC, Urine 0-2 0 - 2 /HPF 05/15/2024 8:59 PM EST LABORATORY GL Bacteria, Urine 0-25 0 - 25 /HPF 05/15/2024 8:59 PM EST LABORATORY [facility] Squamous Epithelial Cells, Urine Many(A) None /HPF 05/15/2024 8:59 PM EST LABORATORY [facility] Urine Urine specimen obtained by clean catch procedure / Unknown Non-blood Collection / Unknown 05/15/2024 8:41 PM EST 05/15/2024 8:46 PM EST us Armond Rouse PA-C LAB URINE ORDERABLES Final Result Performing Organization Address [facility] Co de Phone Number LABORATORY [address] [phone] * EXTRA GREEN TOP WITH GEL (05/15/2024 8:40 PM EST) Blood Venous blood specimen / Unknown 05/15/2024 8:40 PM EST 05/15/2024 8:46 PM EST us Jack Nguyen DO LAB BLOOD ORDERABLES Final Resu lt Performing Organization Address City/[facility]/ZIP Co de Phone Number LABORATORY [address] [phone] * (ABNORMAL) DIFFERENTIAL, AUTOMATED (05/15/2024 8:40 PM EST) [facility] WBC 13.94(H) 4.00 - 10.80 K/uL 05/15/2024 8:49 PM EST [facility] Neutrophils % 92.9(H) 40.0 - 75.0 % 05/15/2024 8:49 PM EST [facility] Lymphocytes % 4.1(L) 18.0 - 42.0 % 05/15/2024 8:49 PM EST [facility] Monocytes % 1.6 1.0 - 11.0 % 05/15/2024 8:49 PM EST [facility] Eosinophils % 0.4 0.0 - 6.0 % 05/15/2024 8:49 PM EST [facility] Basophils % 0.6 0.0 - 2.0 % 05/15/2024 8:49 PM EST LABORATORY GL Immature Granulocytes % 0.4 0.0 - 2.0 % 05/15/2024 8:49 PM EST [facility] Absolute Neutrophils 12.95(H) 1.80 - 7.70 K/uL 05/15/2024 8:49 PM EST [facility] Absolute Lymphocytes 0.57(L) 1.00 - 4.80 K/ul 05/15/2024 8:49 PM EST [facility] Absolute Monocytes 0.23 0.00 - 1.10 K/uL 05/15/2024 8:49 PM EST [facility] Absolute Eosinophils 0.06 0.00 - 0.70 K/uL 05/15/2024 8:49 PM EST [facility] Absolute Basophils 0.08 0.00 - 0.20 K/uL 05/15/2024 8:49 PM EST [facility] Absolute Immature Granulocytes 0.05 0.00 - 0.20 K/uL 05/15/2024 8:49 PM EST [facility] Blood Venous blood specimen / Unknown Venipuncture / Unknown 05/15/2024 8:40 PM EST 05/15/2024 8:45 PM EST Armond Rouse PA-C LAB BLOOD ORDERABLES Final Result LABORATORY [address] [address] * (ABNORMAL) CBC (05/15/2024 8:40 PM EST) Pathologist [facility] WBC 13.94(H) 4.00 - 10.80 K/uL 05/15/2024 8:[address] [facility] RBC 4.58 3.85 - 5.15 M/uL 05/15/2024 8:[address] [facility] HGB 13.2 12.0 - 15.3 g/dL 05/15/2024 8:49 PM EST LABORATORY GL HCT 41.9 36.0 - 45.2 % 05/15/2024 8:[address] [facility] MCV 91.5 81.5 - 97.5 fL 05/15/2024 8:[address] [facility] MCH 28.8 27.0 - 34.0 pg 05/15/2024 8:[address] [facility] MCHC 31.5 32.0 - 36.0 g/dL 05/15/2024 8:[address] [facility] RDW 14.4 11.5 - 15.5 % 05/15/2024 8:[address] [facility] PLT 449(H) 140 - 400 K/uL 05/15/2024 8:[address] [facility] MPV 9.0 6.6 - 11.1 fL 05/15/2024 8:[address] [facility] nRBCs 0 <=0 /100 WBCs 05/15/2024 8:49 PM EST LABORATORY GL Blood Venous blood specimen / Unknown Venipuncture / Unknown 05/15/2024 8:40 PM EST 05/15/2024 8:45 PM EST Armond Rouse PA-C LAB BLOOD ORDERABLES Final Result LABORATORY [address] [address] * PROCALCITONIN (05/15/2024 8:40 PM EST) [facility] Procalcitonin <0.06 <0.10 ng/mL 05/15/2024 9:[address] [facility] Blood Venous blood specimen / Unknown Venipuncture / Unknown 05/15/2024 8:40 PM EST 05/15/2024 8:45 PM EST Narrative LABORATORY [facility] - 05/15/2024 9:13 PM EST Less than 0.5 ng/mL: Low risk for progression to sepsis. Review patients condition for localized infections. 0.5 to 2.0 ng/mL: Intermediate risk for progresion to sepsis. Review underlying conditions. Recommend repeat PCT after 6 hours has elapsed. Greater than 2.0 ng/mL: high risk for progression to sepsis unless other causes are known. us Armond Rouse PA-C LAB BLOOD ORDERABLES Final Result Performing Organization Address City/[facility]/ZIP Co de Phone Number LABORATORY [address] [address] * LIPASE (05/15/2024 8:40 PM EST) Pathologist [facility] Lipase 44 13 - 60 U/L 05/15/2024 9:[address] [facility] Blood Venous blood specimen / Unknown Venipuncture / Unknown 05/15/2024 8:40 PM EST 05/15/2024 8:45 PM EST Armond Rouse PA-C LAB BLOOD ORDERABLES Final Result LABORATORY [address] [address] * (ABNORMAL) LACTATE (05/15/2024 8:40 PM EST) [facility] Lactate 2.1(H) 0.4 - 2.0 mmol/L 05/15/2024 9:[address] [facility] Blood Venous blood specimen / Unknown Venipuncture / Unknown 05/15/2024 8:40 PM EST 05/15/2024 8:45 PM EST Armond Rouse PA-C LAB BLOOD ORDERABLES Final Result LABORATORY [address] [place] [address] * (ABNORMAL) COMPREHENSIVE METABOLIC PANEL (05/15/2024 8:40 PM EST) BUN 11 6 - 20 mg/dL 05/15/2024 9:24 PM EST LABORATORY [facility] CREATININE 0.7 0.5 - 1.0 mg/dL 05/15/2024 9:24 PM EST LABORATORY [facility] EGFR >90 >=60 mL/min 05/15/2024 9:24 PM EST LABORATORY [facility] Comment:eGFR is calculated b ased on the CKD-EPI 2020 equation. SODIUM 139 135 - 146 mmol/L 05/15/2024 9:24 PM EST LABORATORY [facility] POTASSIUM 3.8 3.5 - 5.1 mmol/L 05/15/2024 9:24 PM EST LABORATORY [facility] CHLORIDE 102 98 - 107 mmol/L 05/15/2024 9:24 PM EST LABORATORY [facility] CO2 22 22 - 32 mmol/L 05/15/2024 9:24 PM EST LABORATORY [facility] ANION GAP 15 7 - 15 mmol/L 05/15/2024 9:24 PM EST LABORATORY [facility] GLUCOSE 148(H) 70 - 120 mg/dL 05/15/2024 9:24 PM EST LABORATORY [facility] Albumin 4.6 3.8 - 5.0 g/dL 05/15/2024 9:24 PM EST LABORATORY [facility] AST 17 10 - 35 U/L 05/15/2024 9:24 PM EST LABORATORY [facility] Alkaline Phosphatase 69 35 - 130 U/L 05/15/2024 9:24 PM EST LABORATORY [facility] Bilirubin, Total 0.3 <=1.2 mg/dL 05/15/2024 9:24 PM EST LABORATORY [facility] CALCIUM 10.0 8.4 - 10.2 mg/dL 05/15/2024 9:24 PM EST LABORATORY [facility] Protein 7.6 6.0 - 8.3 g/dL 05/15/2024 9:24 PM EST LABORATORY [facility] ALT 13 10 - 35 U/L 05/15/2024 9:24 PM EST LABORATORY [facility] Blood Venous blood specimen / Unknown Venipuncture / Unknown 05/15/2024 8:40 PM EST 05/15/2024 8:45 PM EST Armond Rouse PA-C LAB BLOOD ORDERABLES Final Result LABORATORY [address] [address] documented in this encounter Visit Diagnoses Diagnosis Kidney stone- Primary Calculus of kidney Tachycardia Tachycardia, unspecified Renal colic documented in this encounter Administered Medications Inactive Administered Medications - up to 3 most recent administrations Medication Order MAR Action Action Date Dose Rate Site Iopamidol (Isovue 370) inj 80 mL 80 mL, Intravenous, ONCE, On 05/15/24 at 2330, For 1 dose, Radiology Medication Routing (Non-IR) Given 05/15/2024 10:54 PM EST 80 mL NSS 0.9% 1,000 mL bolus infusion IV Piggyback, at 1,000 mL/hr Administer over 60 Minutes, Administer entire volume within 60 minutes or less., ONCE, 1 dose, On 05/15/24 at 2100 Restarted 05/15/2024 9:51 PM EST 1000 mL/hr Restarted 05/15/2024 9:40 PM EST 1000 mL/hr Restarted 05/15/2024 9:14 PM EST 1000 mL/hr ondansetron (Zofran) inj 4 mg 4 mg, IV Push, ONCE, On 05/15/24 at 2100, For 1 dose Given 05/15/2024 8:49 PM EST 4 mg ondansetron ODT (Zofran) tab 4 mg 4 mg, On Tongue, ONCE, On 05/15/24 at 2230, For 1 dose Given 05/15/2024 9:53 PM EST 4 mg oxyCODONE (Oxy IR) tab 5 mg 5 mg, Oral, ONCE, On 05/15/24 at 2215, For 1 dose Given 05/15/2024 9:43 PM EST 5 mg documented in this encounter Active and Recently Administered Medications Times are shown in EST. Scheduled Medication Order 05/14/2024 05/15/2024 05/16/2024 Iopamidol (Isovue 370) inj 80 mL (COMPLETED) 80 mL, Intravenous, ONCE, On 05/15/24 at 2330, For 1 dose, Radiology Medication Routing (Non-IR) 2253 (Given - Provider: Ye Staples, RT (R)) keTORolac (Toradol) 30 MG/ML inj 15 mg 15 mg, IV Push, ONCE, On 05/15/24 at 2100, For 1 dose 2099 (Not Given - Provider: Fiona Soto RN - Reason: Clinician Judgement-Notify Provider - Comment: pt had 800mg ibuprofen at 1900 at home) NSS 0.9% 1,000 mL bolus infusion (COMPLETED) IV Piggyback, at 1,000 mL/hr Administer over 60 Minutes, Administer entire volume within 60 minutes or less., ONCE, 1 dose, On 05/15/24 at 2099 2048 (New Bag - Provider: Me marian Soto RN)2109 (Paused - Provider: Fiona Soto RN)2113 (Restarted - Provider: Fiona Soto RN)2132 (Paused - Provider: Fiona Soto RN)2139 (Restarted - Provider: Fiona Soto RN)2144 (Paused - Provider: Fiona Soto RN)2150 (Restarted - Provider: Fiona Soto RN)2204 (Stopped - Provider: Fiona Soto RN) ondansetron (Zofran) inj 4 mg (COMPLETED) 4 mg, IV Push, ONCE, On 05/15/24 at 2100, For 1 dose 2048 (Given - Provider: Florencio Soto RN) ondansetron ODT (Zofran) tab 4 mg (COMPLETED) 4 mg, On Tongue, ONCE, On 05/15/24 at 2230, For 1 dose 2152 (Given - Provider: Florencio Soto RN) oxyCODONE (Oxy IR) tab 5 mg (COMPLETED) 5 mg, Oral, ONCE, On 05/15/24 at 221, For 1 dose 2142 (Given - Provider: Florencio Soto RN) documented in this encounter Advance Directives [...] Health Care Power of Attor gab? No Healthcare Agents on File Name Relationship Healthcare Agent Relationshi p Communication Amparo Rinaldi [facility] Health Care Repr esentative (appointed verbally by patient or by statute hierarchy) Umberto Cordero Significant Other Health Care Re presentative (appointed verbally by patient or by statute hierarchy) Care Teams Connie Cleaner Relationship Specialty Start Date End Date Dimas Doty DO [address] [place] [address] PCP - General Family Medicine 06/09/19 documented as of this encounter
--- OUTSIDE RECORDS SUMMARY | 2024-05-17 21:29 | External Medical Summary | Summary of Care ---
Author Name Unknown Organization [facility] Address [address] [place] [address] Phone [phone] Care Team Providers Care Pharmacy Clinical Specialist Name Role Phone Dimas Doty DO Primary Care Provider [phone] Reason for Visit * Reason Comments Acute She was admitted to [facility] last week for sepsis from a UTI. Her symptoms improved for 2 days. She is experiencing bi-lat flank pain . She is taking Tylenol. She went to [place] last evening she had lab work completed and was discharged to home. Encounter Details Date Type Department Care Team (Late st Contact Info) Description 05/16/2024 11:20 AM [facility] Family Practice [address] [place] [address] Giles Reilly PA-C [address] [place] [address] [address] Flank pain*; Recurrent UTI; Cyst of kidney, acquired Allergies Active Allergy Reactions Criticality Noted Date [...] hours as needed for Pain, Mild. 07/15/19 Active Sertraline HCl 100 MG Oral Tablet (Zoloft)Indication s:Recurrent major depressive disorder, in full remission (HCC) TAKE 1 & 1/2 TABLETS BY MOUTH IN THE MORNING. 30 Tablet 11/26/19 Active Additional Information Patient taking differently: 100 mg Oral Daily(AM), TAKE 1 TABLETS BY MOUTH IN the evening., Reported on 05/16/2024 busPIRone HCl 10 MG Oral Tablet (Buspar) Take 1 Tablet by mouth in the morning. 30 Tablet 12/18/19 Active Omeprazole 20 MG Oral Capsule Delayed Release (PriLOSEC)Indicati ons:Gastroesophage al reflux disease with esophagitis and hemorrhage Take 1 Capsule by mouth in the morning. 30 Capsule 12/18/19 Active Tamsulosin HCl 0.4 MG Oral Capsule (Flomax) Take 1 Capsule by mouth in the morning. 28 Capsule 12/18/19 Active Rizatriptan Benzoate 5 MG Oral Tablet Take 1 Tablet by mouth as needed for Migraine. May repeat in 2 hours if needed 10 Tablet 02/29/20 Active Gabapentin 300 MG Oral Capsule (Neurontin) Take 1 Capsule by mouth in the morning and 1 Capsule at noon and 1 Capsule before bedtime. 90 Capsule 03/01/20 Active Additional Information Patient taking differently: 600 mgOralHS, Reported on 05/16/2024 Phenazopyridine HCl 100 MG Oral Tablet (Pyridium) Take 1 Tablet by mouth 3 times a day as needed for Pain, Breakthrough. 10 Tablet 04/14/20 Active Promethazine HCl 25 MG Oral Tablet (Phenergan) Take 1 Tablet by mouth every 6 hours as needed for Nausea for up to 20 doses. 20 Tablet 04/23/20 Active Additional Information Patient not taking.Reported on 05/16/2024 ProAir HFA 108 (90 Base) MCG/ACT Inhalation Aerosol SolutionIndication s:Pneumonia of left lower lobe due to infectious organism Inhale 2 Puffs by mouth every 4 hours as needed for Wheezing, Cough or Shortness of Breath. 18 g 1 05/06/20 Active Additional Information Patient not taking.Reported on 05/16/2024 guaiFENesin-Codein e 100-10 MG/5ML Oral Solution (Robitussin AC)Indications:Pne umonia of left lower lobe due to infectious organism Take 5 mL by mouth every 4 hours as needed for Cough. 120 mL 05/06/20 Active Additional Information Patient not taking.Reported on 05/16/2024 oxyCODONE-Acetamin ophen 5-325 MG Oral Tablet (Percocet) Take 1 Tablet by mouth every 6 hours as needed for Pain, Severe. 40 Tablet 05/09/20 Active Ciprofloxacin HCl 500 MG Oral Tablet (Cipro) Take 1 Tablet by mouth in the morning and 1 Tablet before bedtime. Active Ondansetron 4 MG Oral Tablet Disintegrating (Zofran) Place 1 Tablet on tongue every 8 hours as needed for Nausea. dissolve on tongue. 2 Tablet 05/16/20 Active Nitrofurantoin Monohyd Macro 100 MG Oral Capsule (Macrobid) Take 1 Capsule by mouth in the morning and 1 Capsule before bedtime. Do all this for 7 days. With food until gone. 14 Capsule 05/16/20 24 Active Cephalexin 500 MG Oral Capsule (Keflex) Take 1 Capsule by mouth in the morning and 1 Capsule at noon and 1 Capsule in the evening and 1 Capsule before bedtime. Do all this for 10 days. 40 Capsule 02/13/20 24 024 Discontin ued(Patie nt preferenc e/discont inuation) predniSONE 10 MG Oral Tablet (Deltasone)Indicat ions:Pneumonia of left lower lobe due to infectious organism Take 5 tabs for 2 days, 4 tabs for 2 days, 3 tabs for 2 days, 2 tabs for 2 days 1 tab for 2 days 30 Tablet 05/06/20 24 024 Discontin ued(End of Procedure ) Azithromycin 250 MG Oral Tablet (Zithromax)Indicat ions:Pneumonia of left lower lobe due to infectious organism Take 2 tabs by mouth on the first day, then 1 tab daily on days two through five 6 Tablet 05/06/20 24 024 Discontin ued(Patie nt preferenc e/discont inuation) Baclofen 5 MG Oral Tablet (Lioresal) Take 1 Tablet by mouth 3 times a day as needed (Muscle spasms/back pain) for up to 5 days. 15 Tablet 05/08/20 24 024 Discontin ued(Patie nt preferenc e/discont inuation) documented as of this encounter (statuses as [...] Menorrhagia with regular cycle 04/16/2021 [facility] OTHER*[id number] 01/24/2021 Gastroesophageal reflux disease with esophagitis 01/04/2019 [...] of Assessment Author No 08/25/2023 6:06 PM Kathya Grier RN * Are you blind or do you have serious difficulty seeing, even when wearing glasses? Answer Date of Assessment Author No 08/25/2023 6:06 PM Kathya Grier RN * Do you have serious difficulty walking or climbing stairs? (5 years old or older) Answer Date of Assessment Author No 08/25/2023 6:06 PM Kathya Grier RN * Do you have difficulty dressing or bathing? (5 years old or older) Answer Date of Assessment Author No 08/25/2023 6:06 PM Kathya Grier RN * Because of a physical, mental, or emotional condition, do you have difficulty doing errands alone such as visiting a doctors office or shopping? (15 years old or older) Answer Date of Assessment Author No 08/25/2023 6:06 PM Kathya Grier RN documented as of this encounter Mental Status * Because of a physical, mental, or emotional condition, do you have serious difficulty concentrating, remembering, or making decisions? (5 years old or older) Answer Entry Date Author No 08/25/2023 6:06 PM Kathya Grier RN documented in this encounter Nursing Notes * Shanice Joseph LPN - 05/16/2024 11:28 AM EST Chief Complaint Patient presents with Acute She was admitted to [facility] last week for sepsis from a UTI. Her symptoms improved for 2 days. She is experiencing bi-lat flank pain . She is taking Tylenol. She went to [facility] last evening she had lab work completed and was discharged to home. documented in this encounter Plan of Treatment Upcoming Encounters Date Type Department Care Team (Late st Contact Info) Description 05/17/2024 10:20 AM EST Office Visit Family Practice [facility] [place] [address] [facility] [place] [address] Dimas Doty DO [address] [place] [address] Scheduled Procedures Name Priority Associated Diagnoses Date/Ti [...] as of this encounter Visit Diagnoses Diagnosis Flank pain- Primary Abdominal pain, unspecified site Recurrent UTI Urinary tract infection, site not specified Cyst of kidney, acquired Acquired cyst of kidney documented in this encounter Advance [...] 6:21 PM 08/26/2023 7:43 PM This order reflects the patients wishes and [...] Healthcare Agent Relationshi p Communication Amparo Rinaldi [facility] Health Care Repr esentative (appointed verbally by patient or by statute hierarchy) Umberto Cordero Significant Other Health Care Re presentative (appointed verbally by patient or by statute hierarchy) Care Teams Pharmacy Clinical Specialist Relationship Specialty Start Date End Date Dimas Doty DO [address] [place] [address] PCP - General Family Medicine 06/09/19 documented as of this encounter
--- OUTSIDE RECORDS SUMMARY | 2024-05-17 21:29 | External Medical Summary | Summary of Care ---
Author Name Unknown Organization [facility] Address [address] [place] [address] Phone [phone] Care Team Providers Care Lease Administration Analyst Name Role Phone Dimas Doty DO Primary Care Provider [phone] Reason for Visit * Reason Comments Acute She was admitted to [facility] last week for sepsis from a UTI. Her symptoms improved for 2 days. She is experiencing bi-lat flank pain . She is taking Tylenol. She went to [facility] last evening she had lab work completed and was discharged to home. Encounter Details Date Type Department Care Team (Late st Contact Info) Description 05/16/2024 11:20 AM [facility] Family Practice [address] [place] [address] Giles Reilly PA-C [address] [place] [address] [address] Flank pain*; Recurrent UTI; Cyst of kidney, [...] Menorrhagia with regular cycle 04/16/2021 [facility] OTHER*[id number] 01/24/2021 Gastroesophageal reflux disease with esophagitis 01/04/2019 [...] documented in this encounter Nursing Notes * Shancie Joseph LPN - 05/16/2024 11:28 AM EST Chief Complaint Patient presents with Acute She was admitted to [facility] last week for sepsis from a UTI. Her symptoms improved for 2 days. She is experiencing bi-lat flank pain . She is taking Tylenol. She went to [facility] last evening she had lab work completed and was discharged to home. documented in this encounter Plan of Treatment Upcoming Encounters Date Type Department Care Team (Late st Contact Info) Description 05/17/2024 10:20 AM EST Office Visit Family Practice [facility] [place] [address] [facility] [place] [address] Dimas Doty DO [address] [facility] [place] [address] Scheduled Procedures Name Priority Associated Diagnoses Date/Ti [...] Healthcare Agent Relationshi p Communication Amparo Rinaldi [facility] Care Repr esentative (appointed verbally by patient or by statute hierarchy) Umberto Cordero Significant Other Health Care Re presentative (appointed verbally by patient or by statute hierarchy) Care Teams Lease Administration Analyst Relationship Specialty Start Date End Date Dimas Doty DO [address] [place] [address] PCP - General Family Medicine 06/09/19 documented as of this encounter
[2024-05-18] MEDS: KETOROLAC TROMETHAMINE 15 MG/ML VIAL IV ONE (02:11)
[2024-05-18 06:46] LABS: Hematocrit (blood only) 34.8 % (37.0-47.0); Hemoglobin 11.5 g/dl (12.0-16.0); Mean Corpuscular Hemoglobin 29.1 pg (25.0-34.0); Mean Corpuscular Volume 88.1 fL (80.0-100.0); Mean Platelet Volume 9.4 fL (9.4-12.4); Platelet Count 349 K/uL (130-400); RDW Coefficient of Variation 13.5 % (11.5-14.5); RDW Standard Deviation 43.6 fL (36.4-46.3); Red Blood Count 3.95 M/uL (4.20-5.40); White Blood Count 10.14 K/ul (4.8-10.8)
[2024-05-18 07:00] VITALS: RESP 15; TEMP 98.1; O2SAT 97
[2024-05-18 07:12] LABS: BUN Creatinine Ratio 19.1 (10-20); Calcium 9.2 mg/dl (8.6-10.3); Creatinine Clr Calc Pharmacy 192.7 ml/min; Phosphorus 3.7 mg/dl (2.5-4.9); Potassium 4.1 mmol/L (3.5-5.1)
--- NOTE | 2024-05-18 07:18 | Fluoroscopy Report ---
FL KUB CLINICAL HISTORY: CYSTO STENTleft-sided cystourethrogram COMPARISON STUDY: CT 05/16/2024 FLUOROSCOPY TIME: 3.7 seconds FLUOROSCOPY IMAGES: 1 EXPOSURE DOSE: 0.75 mGy FINDINGS: Proximal portion of the left ureteral stent is in satisfactory position, distal portion was not imaged. No ureteral calculi seen on this single image submitted. IMPRESSION: Fluoroscopic assistance as above. ACT 112: Negative or not required by law. Electronically signed by: Jorge Pineda M.D. 05/18/2024 7:16 AM
--- OUTSIDE RECORDS SUMMARY | 2024-05-18 08:01 | External Medical Summary | Summary of Care ---
Author Name Unknown Organization [facility] Address [address] [place] [address] Phone [phone] Care Team Providers Care Pickle Sorter Name Role Phone Dimas Doty DO Primary Care Provider [phone] Reason for Visit * Reason Onset Date Comments Appointment 05/16/2024 Encounter Details Date Type Department Care Team (Late st Contact Info) Description 05/16/2024 Telephone Family Practice [facility] [place] [address] [facility] [place] [address] Dimas Doty DO [address] [place] [place] [address] Appointment Allergies Active Allergy Reactions Criticality Noted [...] for Pain, Breakthrough. 10 Tablet 1 04/14/20 Active Promethazine HCl 25 MG Oral [...] the morning and 1 Tablet before bedtime. 024 Active Ondansetron 4 MG Oral Tablet Disintegrating (Zofran) Place 1 Tablet on tongue every 8 hours as needed for Nausea. dissolve on tongue. 2 Tablet 05/16/20 Active Nitrofurantoin Monohyd Macro 100 MG Oral Capsule (Macrobid) Take 1 Capsule by mouth in the morning and 1 Capsule before bedtime. Do all this for 7 days. With food until gone. 14 Capsule 05/16/20 Active documented as of this encounter (statuses [...] Menorrhagia with regular cycle 04/16/2021 [facility] OTHER*[id number] 01/24/2021 Gastroesophageal reflux disease with esophagitis 01/04/2019 [...] encounter Miscellaneous Notes * Telephone Encounter - Rox Hernandez RN - 05/16/2024 4:01 PM EST Patient has had multiple ED visits to [facility] and [facility] including admissions related to kidney stones. During her this last year there was discussion that she needs to have her parathyroid out, but it could not be done until she had the baby. Since patient had her baby, she has had multiple visits and passes multiple stones a week. She has a new referral for endocrinology. She presents with all of the red flag symptoms r/t hyperparathyroidism. Can we please get her a video visit, anu? Thank you! Rox Hernandez RN Case Manager [facility] Internal Medicine/Family Practice [facility] [phone] documented in this encounter Plan of Treatment Upcoming Encounters Date Type Department Care Team (Late st Contact Info) Description 05/17/2024 10:20 AM EST Office Visit Family [facility] [address] [facility] [place] [address] Dimas Doty DO [address] [facility] [place], [place] [address] Scheduled Procedures Name Priority Associated Diagnoses Date/Ti [...] Healthcare Agent Relationshi p Communication Amparo Rinaldi [facility] Care Repr esentative (appointed verbally by patient or by statute hierarchy) Umberto Cordero Significant Other Health Care Re presentative (appointed verbally by patient or by statute hierarchy) Care Teams Pickle Sorter Relationship Specialty Start Date End Date Dimas Doty DO [address] [place] [address] PCP - General Family Medicine 06/09/19 documented as of this encounter
--- OUTSIDE RECORDS SUMMARY | 2024-05-18 08:01 | External Medical Summary | Summary of Care ---
Author Name Unknown Organization [facility] Address [address] [place] [address] Phone [phone] Care Team Providers Care Deputy Coroner Investigator Name Role Phone Dimas Doty DO Primary Care Provider [phone] Reason for Visit * Reason Onset Date Comments Appointment 05/16/2024 Encounter Details Date Type Department Care Team (Late st Contact Info) Description 05/16/2024 Telephone Family Practice [facility] [place] [address] [facility] [place] [address] Dimas Doty DO [address] [facility] [place] [address] Appointment Allergies Active Allergy Reactions Criticality Noted [...] Menorrhagia with regular cycle 04/16/2021 [facility] OTHER*[id number] 01/24/2021 Gastroesophageal reflux disease with esophagitis 01/04/2019 [...] Patient has had multiple ED visits to [facility] and [facility] including admissions related to kidney [...] Thank you! Rox Hernandez RN Case Manager [facility] Internal Medicine/Family Practice [facility] [phone] documented in this encounter Plan of Treatment Upcoming Encounters Date Type Department Care Team (Late st Contact Info) Description 05/17/2024 10:20 AM EST Office Visit Family [facility] [address] [facility] [place] [address] Dimas Doty DO [address] [facility] [place], [place] [address] Scheduled Procedures Name Priority Associated Diagnoses Date/Ti [...] patient or by statute hierarchy) Care Teams Deputy Coroner Investigator Relationship Specialty Start Date End Date Dimas Doty DO [address] [place] [address] PCP - General Family Medicine 06/09/19 documented as of this encounter
--- OUTSIDE RECORDS SUMMARY | 2024-05-18 08:02 | External Medical Summary | Summary of Care ---
Author Name Unknown Organization [facility] Address [address] [place] [address] Phone [phone] Care Team Providers Care Continuous Loft Operator Name Role Phone Dimas Doty DO Primary Care Provider [phone] Reason for Visit * Reason Onset Date Comments Appointment 05/16/2024 Encounter Details Date Type Department Care Team (Late st Contact Info) Description 05/16/2024 Telephone Family Practice [facility] [place] [address] [facility] [place] [address] Dimas Doty DO [address] [facility] [place] [address] Appointment Allergies Active Allergy Reactions Criticality Noted [...] Menorrhagia with regular cycle 04/16/2021 [facility] OTHER*[id number] 01/24/2021 Gastroesophageal reflux disease with esophagitis 01/04/2019 [...] Patient has had multiple ED visits to [facility] and [facility] including admissions related to kidney stones. [...] Thank you! Rox Hernandez RN Case Manager [facility] Internal Medicine/Family Practice [facility] [phone] documented in this encounter Plan of Treatment Upcoming Encounters Date Type Department Care Team (Late st Contact Info) Description 05/17/2024 10:20 AM EST Office Visit Family [facility] [address] [facility] [place] [address] Dimas Doty DO [address] [facility] [place], [place] [address] Scheduled Procedures Name Priority Associated Diagnoses Date/Ti [...] Relationship Healthcare Agent Relationshi p Communication Amparo Rianldi Mother Health Care Repr esentative (appointed verbally by patient or by statute hierarchy) Umberto Cordero Significant Other Health Care Re presentative (appointed verbally by patient or by statute hierarchy) Care Teams Continuous Loft Operator Relationship Specialty Start Date End Date Dimas Doty DO [address] [place] [address] PCP - General Family Medicine 06/09/19 documented as of this encounter
--- OUTSIDE RECORDS SUMMARY | 2024-05-18 08:03 | External Medical Summary ---
Author Name Unknown Address Unknown Organization [id number]:[facility] [place] [address] [place] [id number] Laboratory Report Ordering Provider Test Date Status GABI BURRIS 05/15/2024 20:41:17 Final Observation Date Value Abnormality Reference (Units) Status Bacteria identified in Specimen by Culture 05/15/2024 20:41:17 No significant growth Final Test: Culture, Urine, Quant itative
Specimen Source: Urine, Clean Catch
Specimen Type: Urine
Specimen Date: 05/15/20242040
Result Date: 05/17/2024 0740
Result Status: Final result
Resulting Lab: [facility]
[address]
[place] [id number]

CULTURE

No significant growth

null Performing Location [facility] [place] [address] [facility] [id number]
[2024-05-18 09:05] LABS: Magnesium 1.9 mg/dl (1.7-2.4)
[2024-05-18] MEDS: oxyBUTYnin chloride 5 MG TAB PO STA (10:04)
--- NOTE | 2024-05-18 12:21 | Urology Progress Note ---
Date of Service May 18, 2024 Assessment & Plan (1) Left ureteral stone: (2) Left flank pain: Plan POD #1 s/p cystoscopy, stone treatment, and left stent placement Patient afebrile and hemodynamically stable Labs today show no leukocytosis and stable renal function Urine culture negative Blood cultures prelim no growth x 24 hours Continues on Ertapenem Pt with tethered stent in place which can be removed today. I offered to remove at bedside but patient prefers to remove herself, nursing aware. Can continue Oxybutynin and Pyridium PRN for stent discomfort/spasms. OK for d/c from standpoint when medically stable and after removal of tethered stent. Outpatient follow-up with our office is in place. Urology will sign-off. Please call with any questions/concerns. - Pt reassessed - She reports self removal of tethered stent without issue - Pain is currently managed with oxybutynin and pyridium - She is requesting to be discharged - OK for d/c from standpoint. Admission and Anticipated Discharge Date Admission Date: May 17, 2024 Subjective Pt seen at bedside today Awake and resting in bed on arrival No acute distress Pt reports moderate stent discomfort Denies f/c/n/v Voiding without issue Review of Systems Constitutional: as per Subjective / HPI Genitourinary: as per Subjective / HPI Physical Exam Constitutional: no acute distress Respiratory: no respiratory distress and no labored breathing Neurologic: moves all extremities and awake Psychiatric: A+Ox3, euthymic affect Results & Data Vital Signs (Past 12 Hours) Vital Signs Temp Pulse Resp BP Pulse Ox O2 Del Method 05/18/24 06:59 36.7 C 106 H 15 128/84 97 Room Air 05/18/24 05:43 88 127/74 05/18/24 02:59 36.6 C 85 18 132/82 95 Room Air PG Care Time/CCT Total # of Minutes Spent Total Time Spent with Patient: Total time spent is greater than 50% in coordination of care (as documented) at patient's floor/unit and/or counseling patient: Coding Level of Care Code 46939 SUB INP/OBS CARE 2/35MIN Diagnoses Left ureteral stone N20.1 Left flank pain R10.9
--- NOTE | 2024-05-18 13:11 | Operative Report ---
PG Post Operative Report Pre & Post Diagnosis Operation Date: 05/17/24 09:20 Pre-Op Diagnosis: Left ureteral stone, left flank pain Post-Op Diagnosis: Left ureteral stone, left flank pain I identified the patient and participated in the time-out.: Yes Procedure Operation Date: 05/17/24 09:20 Actual Procedures p Cystoscopy, Left Stent Placement,Ureteroscopy - Ab De Souza MD Surgeon Ab De Souza MD Pacu Rn none Estimated Blood Loss 0 Findings Consistent with Post-Op Diagnosis Specimens none Description of Procedure The patient was identified in the preoperative holding area, appropriate informed consents were reviewed and completed and the patient was transferred to the operative suite. Upon arrival, appropriate antibiotics and anesthesia were administered and the patient was placed in dorsal lithotomy position and prepped and draped in sterile fashion. To be in the case I passed a 21 Nauruan cystoscope with 30 degree lens and visual thermal spray operator peer inspection revealed a healthy appearing bladder with ureteral orifices in orthotopic position. There were some erythema around the left UO and a few small stone fragments floating within the bladder and resting at the left UO. Following my inspection of the bladder I turned my attention to the left ureter and I cannulated with a sensor wire and a 5 Nauruan open-ended catheter. I then reentered the bladder with a semirigid ureteroscope. I guided this into the distal left ureter and washout several tiny little fragments. I then advanced the scope maximally and saw no other stones within the ureter. The ureter itself was quite healthy. I performed an exit ureteroscopy before placement of a 6 Nauruan by 24 cm stent. There was good curl in the kidney as well as the bladder and a string was left attached. My overall suspicion is that the stone fragments were clustered in the distal ureter and have now passed. No stone treatment was required and she tolerated the procedure well. Stent will be removed tomorrow. I attest to the content of the Intraoperative Record and any orders documented therein. Any exceptions are noted below.
[2024-05-18] MEDS: PHENAZOPYRIDINE HCL 200 MG TAB PO PRN (13:25)
[2024-05-18 14:57] VITALS: BP 141/87; PULSE 100
--- NOTE | 2024-05-18 15:00 | Discharge Summary ---
Discharge Summary Date of Service May 18, 2024 Principal Dx & Hospital Course #1 = Principal Diagnosis (1) Pyelonephritis: Plan Left ureteral stone, hx of kidney stones History of recurrent UTIs Poss. pyelonephritis Patient was recently discharged on ciprofloxacin for UTI, was feeling well, but now comes back d/t severe flank pain, and found to have ureteral stone. Pt has hx of kidney stones and is well known to urology service. Admitting CT A/P with 3 mm stone in the left UVJ. Emergency physician reached out to urology on-call Per urology - plan for cystoscopy and ureteral stent placement on 05/17/24 patient noting significant pain and self removed the stent on 05/18/2024 UA was suggestive of infection, urine culture from admission advising repeat collection needed. Repeat UA ordered and collected before discharge. Patient received ertapenem in the ED, no allergic reaction this time. Patient aware she had minor skin rash with ertapenem during last admission, she was okay to try ertapenem and has been made aware to report immediately if with any allergic reaction. She had no further reactions. Patient was anxious with discharge on 05/18/2024 despite noting significant pain after she removed the stent. Later reporting that pain had improved and asking for discharge with Flomax, oxybutynin and Pyridium as well as Zofran. Stated at that time that she did not need narcotics at home to help with pain. Medications provided for discharge. Patient also discharged with repeat course of ciprofloxacin 500mg BID x 7 days. We will follow-up on cultures and adjust antibiotics as needed. Patient will need close follow-up with urology and primary care provider after discharge. Notes For Next Care Provider Please ensure close followup with Urology Pain Control monitoring Medication Changes From Visit Repeat course of ciprofloxacin 500mg BID x 7 days Daily Flomax, as needed Pyridium, as needed oxybutynin As needed Zofran per patient request Per urology, discontinue Macrobid Admission HPI Per Admitting Provider 29-year-old lady with PMH of gestational HTN, gastric bypass, GERD, urolithiasis, recurrent UTIs, ESBL UTI, VRE UTI, hyperparathyroidism, chronic anemia, mood disorder presented to the ED at referral of PCP office for failure to control UTI as an outpatient. Patient was recently admitted for urinary tract infection, discharged on ciprofloxacin, started getting fever and bilateral flank pain since last 2 days ago [employer], had PCP visit via videoconference today who recommended she be evaluated in the ED and hence patient presented to the ED. Patient reports having fever since last 2 days, worsening bilateral flank pain, left greater than right, pain and burning while passing urine, some nausea and vomiting due to pain per patient. Patient denies diarrhea, sore throat, cough, chest pain. Medications reviewed with the patient in detail. Plan of care discussed with the patient in detail. Full code Admission Exam Per Admitting Provider GENERAL: Alert and oriented x3. NAD, on RA. HEENT: No pallor, no icterus. Pupils equal, round and reactive to light. Oral mucosa moist. NECK: No JVD, no neck masses. HEART: S1 and S2 heard. Regular rate and rhythm. No murmur, no gallop. RESPIRATORY SYSTEM: Normal AP diameter. No accessory muscle use. No wheezing, no crackles. ABDOMEN: Soft, bowel sounds present, b/l lumbar region tender, no distention. Lt > Rt flank tender. CENTRAL NERVOUS SYSTEM: No facial droop. Speech is clear. Obeys simple commands. Moves extremities. EXTREMITIES: No edema, no erythema seen. Discharge Exam General: Alert, oriented. Psych: Appropriate mood and affect HEENT: NC/AT CV: RRR Resp: Breath sounds clear bilaterally, no increased effort of breathing Abdomen: Soft, mildly diffusely tender Extremities: No edema in lower extremities bilaterally. Updated Medication List Medication Instructions Recorded Confirmed Type buspirone 10 mg tablet 10 mg PO HS 03/09/23 05/16/24 History sertraline 100 mg tablet 100 mg PO DAILY 03/09/23 05/16/24 History omeprazole 20 mg capsule,delayed 20 mg PO DAILY 12/24/23 05/16/24 History release norelgestromin 150 mcg-e.estradiol 1 patch transdermal Q7D #3 ea 02/29/24 05/16/24 Rx 35 mcg/24 hr weekly transderm patch (Xulane) albuterol sulfate 90 mcg/actuation 1 puff inhalation Q6H PRN 05/08/24 05/16/24 History aerosol inhaler (Ventolin HFA) SOB/Wheezing gabapentin 300 mg capsule 600 mg PO HS 05/08/24 05/16/24 History ondansetron 4 mg disintegrating 4 mg PO Q8H PRN nausea and 05/08/24 05/16/24 Rx tablet vomiting #30 tabs rizatriptan 5 mg tablet 5 mg PO DAILY PRN Migraine Headache 05/08/24 05/16/24 History ciprofloxacin HCl 500 mg tablet 500 mg PO BID 7 days #14 tabs 05/18/24 Rx ondansetron 4 mg disintegrating 4 mg PO Q8H PRN nausea and 05/18/24 Rx tablet vomiting #30 tabs oxybutynin chloride 5 mg tablet 5 mg PO Q8H PRN bladder spasms #30 05/18/24 Rx tabs phenazopyridine 200 mg tablet 200 mg PO TID PRN pain #6 tabs 05/18/24 Rx (Pyridium) tamsulosin 0.4 mg capsule (Flomax) 0.4 mg PO DAILY #30 caps 05/18/24 Rx Hospital Stay Data Consultations 05/16/24 18:53 ED Decision to Admit Stat 05/16/24 19:02 Consult Urology Routine Procedures Performed Operation Date: 05/17/24 09:20 Actual Procedures p Cystoscopy, Left Stent Placement,Ureteroscopy - Ab De Souza MD Diagnostic Imagining Performed 05/16/24 16:56 CT abd pelvis IV con only Stat 05/17/24 12:00 FL KUB Routine Chest X-Ray 05/16/24 14:38 XR chest 1V not portable CLINICAL HISTORY: Sepsis TECHNIQUE: Single frontal radiograph of the chest was obtained. Comparison: Comparison is made to chest radiographs 12/29/2023 FINDINGS: No lines and tubes are seen. The cardiomediastinal silhouette is normal. The lungs are clear. No evidence of pleural effusion or pneumothorax. IMPRESSION: No acute abnormalities and in particular no radiographic evidence of pneumonia. ACT 112: Negative or not required by law. Electronically signed by: Alexander Gutierrez M.D. 05/16/2024 3:33 PM Abdomen/Pelvis CT 05/16/24 16:56 EXAM: CT Abdomen and Pelvis With Intravenous Contrast INDICATION: Abdominal pain. Leukocytosis. Recent urosepsis. TECHNIQUE: Axial computed tomography images of the abdomen and pelvis with intravenous contrast. Sagittal and coronal reformatted images were created and reviewed. This CT exam was performed using one or more of the following dose reduction techniques: automated exposure control, adjustment of the mA and/or kV according to patient size, and/or use of iterative reconstruction technique. CONTRAST: 95ml of Optiray 320 was administered intravenously. COMPARISON: 05/08/2024 FINDINGS: Limitations: None. Lung bases: No abnormality noted. Pleural space: No visualized pleural effusion or pneumothorax. Heart: No abnormality noted. Mediastinum: No abnormality noted. ABDOMEN: Liver: No abnormality noted. Gallbladder and bile ducts: Cholecystectomy. No ductal dilation or stone noted. Pancreas: Homogeneous enhancement. No mass, inflammation or ductal dilation. Spleen: No significant abnormality noted. Adrenals: No significant abnormality noted. Kidneys and ureters: A 3 mm stone has migrated from the left upper pole to the left UVJ. No hydronephrosis. Stable hyperdense cyst in the apex of the right kidney. Punctate nonobstructing left kidney stone unchanged. No hydronephrosis. No urinary gas. No perinephric fluid. Stomach and bowel: Postoperative changes gastric bypass. Moderate stool in the colon most copious in the rectosigmoid. Distal rectum collapsed and not optimally assessed. There is no intestinal obstruction, thickening or inflammatory process. PELVIS: Appendix: No findings to suggest acute appendicitis. Bladder: No filling defects to suggest mass or large stone. No inflammation. Reproductive: Benign-appearing right ovarian cyst measures 2.5 x 2.0 cm. No further assessment required. ABDOMEN and PELVIS: Intraperitoneal space: No free air. No significant fluid collection. Bones/joints: No acute changes. Soft tissues: Umbilical hernia containing fat. Vasculature: No abdominal aortic aneurysm. Lymph nodes: No pathologically enlarged lymph nodes. IMPRESSION: 1. A 3 mm stone has migrated from the left upper pole to the left UVJ. No hydronephrosis. 2. Moderate stool most copious in the redundant rectosigmoid. No obstruction. ACT 112: Negative or not required by law. Electronically signed by Radha Nick 05-16-2024 5:31 PM Abdomen Fluoroscopy 05/17/24 12:00 FL KUB CLINICAL HISTORY: CYSTO STENTleft-sided cystourethrogram COMPARISON STUDY: CT 05/16/2024 FLUOROSCOPY TIME: 3.7 seconds FLUOROSCOPY IMAGES: 1 EXPOSURE DOSE: 0.75 mGy FINDINGS: Proximal portion of the left ureteral stent is in satisfactory position, distal portion was not imaged. No ureteral calculi seen on this single image submitted. IMPRESSION: Fluoroscopic assistance as above. ACT 112: Negative or not required by law. Electronically signed by: Jorge Pineda M.D. 05/18/2024 7:16 AM Pending Results Patient Have Any Pending Studies at Discharge: No Discharge Instructions Given to Patient (Per Discharging Provider) Zan, You were admitted and treated for obstructing kidney stones. You had a stent placed that was also removed. You would like to go home. Please continue with use of daily Flomax, as needed oxybutynin as well as prn Pyridium. Also provided you with a prescription for as needed Zofran per your request. You stated that you did not need the narcotic medications for help with your pain at this time. please closely follow-up with urology and your primary care provider after discharge. It was also noted that you had a urinary tract infection while here. You were given another prescription to extend the course of ciprofloxacin that you were previously on recently. Please take that antibiotic as prescribed. We will follow-up with the urine culture as needed. Urology also left additional instructions for you listed below. Please keep close follow up with your primary care provider after discharge. Please do not hesitate to come back to the emergency room if your symptoms worsen or return. It was a pleasure taking care of you while you were here. Total Time Total Time Spent Total Time Spent (In Minutes): 60
[2024-05-18 15:39] LABS: Appearance Urine Cloudy (Clear); Specific Gravity Urine 1.024 (1.000-1.030)
[2024-05-18 15:46] LABS: Epithelial Cell Urine >20 /hpf (0-2)
[2024-05-18 15:47] LABS: Bacteria Urine 1+ (None Seen); RBC Urine >20 /hpf (0-2)
== END 2024-05-18 15:17 | disposition home or self-care (01) | DRG 660 ==
LOC: ED 14:33 → 3N 14:33 → SUATTDRO 19:02 → 3N 20:20 → SUATTDRO 05-17 14:44
DX: D64.9 Anemia, unspecified; K21.9 Gastro-esophageal reflux disease without esophagitis; N39.0 Urinary tract infection, site not specified; N12 Tubulo-interstitial nephritis, not specified as acute or chronic; Z88.2 Allergy status to sulfonamides; E21.3 Hyperparathyroidism, unspecified; N20.2 Calculus of kidney with calculus of ureter; Z87.440 Personal history of urinary (tract) infections; F39 Unspecified mood [affective] disorder; Z98.84 Bariatric surgery status; Z87.442 Personal history of urinary calculi